=== PATIENT | female | born 1955 | race Caucasian/White ===

== ENCOUNTER 2018-07-29 19:33 | Observation (INO) | payer OTHER ==
[~2018-07-29] VITALS: Ht 142.2 cm; Wt 65.0 kg
--- OUTSIDE RECORDS SUMMARY | ~2018-07-29 | XMS | Encounter Summary ---
Demographics + + + | Address | [address] | | | [place] [address] | + + + | Home Phone | | + + + | Preferred Language | Unknown | + + + | Marital Status | Single | + + + | Jew Affiliation | PRO | + + + | Race | White | + + + | Ethnic Group | Not or | + + + Author + + + | Author | [facility] | + + + | Organization | [facility] | + + + | Address | Unknown | + + + | Phone | Unavailable | + + + Support + + +---------+ + | Name | Relationship | Address | Phone | + + +---------+ + | Isidra Wilson | ECON | Unknown | | + + +---------+ + Care Team Providers + +------+ + | Care Sterile Instrument Technician Name | Role | Phone | + +------+ + | No Pcp Per Patient | PCP | Unavailable | + +------+ + Reason for Visit + + + | Reason | Comments | + + + | Anticoagulant | | | monitoring | | + + + Encounter Details +--------+---------+ + + + | Date | Type | Department | Care Team | Description | +--------+---------+ + + + | 12/12/ | Office | AntiCoagulation at | Amber Segovia, | Embolism (HCC); | | 2008 | Visit | [facility] [address] | [facility] [address] | Encounter for | | | | [facility] [address] [address] | [facility] [address] | Long-Term (Current) | | | | Physicians [facility] | [place], [place] | Use of | | | | [address] | [address] | Anticoagulants | | | | Phys[facility] | [phone] | | | | | [place], [place] | | | | | | [address] | | | | | | [phone] | | | +--------+---------+ + + + Social History + +-------+ +--------+------+ | Tobacco Use | Types | Packs/Day | Years | Date | | | | | Used | | + +-------+ +--------+------+ | Never Assessed | | | | | + +-------+ +--------+------+ + + + | Sex Assigned at | Date Recorded | | | | + + + | Not on file | | + + + + + + + | Job Start Date | Occupation | Industry | + + + + | Not on file | Not on file | Not on file | + + + + + + + + | Travel History | Travel Start | Travel End | + + + + + + | No recent travel history available. | + + documented as of this encounter Last Filed Vital Signs + +---------+ + + | Vital Sign | Reading | Time Taken | Comments | + +---------+ + + | Blood Pressure | 120/60 | 12/12/2008 1:48 PM | | | | | PDT | | + +---------+ + + | Pulse | - | - | | + +---------+ + + | Temperature | - | - | | + +---------+ + + | Respiratory Rate | - | - | | + +---------+ + + | Oxygen Saturation | - | - | | + +---------+ + + | Inhaled Oxygen | - | - | | | Concentration | | | | + +---------+ + + | Weight | - | - | | + +---------+ + + | Height | - | - | | + +---------+ + + | Body Mass Index | - | - | | + +---------+ + + documented in this encounter Progress Notes Amber Segovia, [employer] - 12/12/2008 2:42 PM PDTCC: Established patient Kelly FongPatrick miller 53 y.o. was seen and evaluated by myself today in the Anticoagulation Clinic for an ticoagulation management. 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 Without recent changes. Denies bleeding, change in diet, medication, activity or new illnes s. ANTICOAG FOCUSED ASSESSMENT See doc flowsheet. PROBLEM FOCUSED EXAM: General: oriented, comfortable Eyes: conjunctiva clear Extremities: no edema, pain, discoloration, capillary refill normal Neuro: grossly intact Skin: no bleeding, ecchymosis or petechiae, left dressing intact to forearm Psychiatric: displays normal mood, affect and judgement Labs Reviewed: INR, Plt, HG and HCT Other Diagnostic Tests Reviewed: No other diagnostic tests reviewed at this visit. PATIENT COUNSELING AND EDUCATION REGARDING: Importance of notifying clinic of health status change(s) Reporting medication changes Reporting signs of bleeding Contacting Antico staff ASSESSMENT AND PLAN: Anticoagulation Therapy:Therapeutic at 2.6 (last days warfarin in mg 10, 7.5, 5, 2.5, 7.5, 7.5 ). Will Take 5 mg today, 7.5 mg tomorrow, then be checked on Wednesday. Looks like her fox oconnor dose is 7.5 mg every day except 5 mg on Wed and Sat while she is here in [place] but th is may change when she returns home. Will be heading home and follow up with Dr Thong carlton Wednesday12.13.08 at [address] [facility] ([phone]). documented in this en counter Plan of Treatment Not on filedocumented as of this encounter Procedures + +--------+ + + + | Procedure Name | Priori | Date/Time | Associated Diagnosis | Comments | | | ty | | | | + +--------+ + + + | INR (PT), POC | Routin | 12/12/2008 | Embolism (HCC) | Results for this | | | e | | Encounter for | procedure are in the | | | | | Long-Term (Current) | results section. | | | | | Use of | | | | | | Anticoagulants | | + +--------+ + + + documented in this encounter Results INR (PT), POC (12/12/2008) + +---------+ + + + | Component | Value | Ref Range | Performed | Pathologist | | | | | At | Signature | + +---------+ + + + | [facility] | 2.6 (A) | 0.9 - 1.2 | [facility] | | | TIME | | | OF CARE | | | (INR), POC | | | TESTS | | + +---------+ + + + + + | Specimen | + + | Blood | + + + + + + + | Performing | Address | City/State/Zipcode | Phone Number | | Organization | | | | + + + + + | [facility] | [address] | [place], [place] | | | [facility] | [address] | [address] | | | TESTS | | | | + + + + + | [facility] | [address] | [place], [place] | | | TESTS | [address] | [address] | | + + + + + documented in this encounter Visit Diagnoses + + | Diagnosis | + + | Embolism (HCC) Embolism and thrombosis of unspecified artery | + + | [facility] (current) use of anticoagulants Long-term (current) use of anticoagulants | + + documented in this encounter"
--- OUTSIDE RECORDS SUMMARY | ~2018-07-29 | XMS | Clinical Summary ---
Demographics + + + | Address | [address] | | | [place] [address] | + + + | Home Phone | | + + + | Preferred Language | Unknown | + + + | Marital Status | Single | + + + | Taoism Affiliation | PRO | + + + | Race | White | + + + | Ethnic Group | Not or | + + + Author + + + | Author | [facility] | + + + | Organization | [facility] | + + + | Address | Unknown | + + + | Phone | Unavailable | + + + Support + + +---------+ + | Name | Relationship | Address | Phone | + + +---------+ + | Isidra Wilson | ECON | Unknown | | + + +---------+ + Care Team Providers + +------+ + | Care Telecommunications Professional Name | Role | Phone | + +------+ + | Jim Bergman MD | PP | | + +------+ + Source Comments MELANIE is fully live on both [facility] and [facility] In[facility] Allergies No Known Allergies Medications + + + +---------+------+------+-------+ | Medication | Sig | Dispensed | Refills | Star | End | Statu | | | | | | t | Date | s | | | | | | Date | | | + + + +---------+------+------+-------+ | acetaminophen 650 | Take 650 mg by mouth | 100 | 0 | 09/1 | | Activ | | mg Oral Tablet | every four hours as | | | 4/20 | | e | | | needed. | | | 09 | | | + + + +---------+------+------+-------+ | lisinopril 20 mg | Take 1 Tab by mouth | | 0 | 05/0 | | Activ | | Oral Tablet | once daily. | | | 20 | | e | | | | | | 10 | | | + + + +---------+------+------+-------+ | metformin 850 mg | Take 1 Tab by mouth | | 0 | 05/0 | | Activ | | Oral Tablet | three times daily. | | | 09/17 | | e | | | | | | 10 | | | + + + +---------+------+------+-------+ | lovastatin 20 mg | Take 1 Tab by mouth | | 0 | 05/0 | | Activ | | Oral Tablet | once daily in the | | | 7 | | e | | | evening. Administer | | | 10 | | | | | with evening meal. | | | | | | + + + +---------+------+------+-------+ | glyBURIDE 5 mg | Take 1 Tab by mouth | | 0 | 05/0 | | Activ | | Oral Tablet | two times daily. 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 | + + Last Filed Vital Signs + + + + + | Vital Sign | Reading | Time Taken | Comments | + + + + + | Blood Pressure | 134/86 | 07/05/2009 3:40 PM | | | | | PDT | | + + + + + | Pulse | 93 | 07/05/2009 3:40 PM | | | | | PDT | | + + + + + | Temperature | 36.8 C (98.2 F) | 07/05/2009 3:40 PM | | | | | PDT | | + + + + + | Respiratory Rate | 16 | 12/04/2008 7:52 AM | | | | | PDT | | + + + + + | Oxygen Saturation | 99% | 07/05/2009 3:40 PM | | | | | PDT | | + + + + + | Inhaled Oxygen | - | - | | | Concentration | | | | + + + + + | Weight | 73.5 kg (162 lb 1.6 | 07/05/2009 3:40 PM | | | | oz) | PDT | | + + + + + | Height | 143.5 cm (4' 8.5") | 07/05/2009 3:40 PM | | | | | PDT | | + + + + + | Body Mass Index | 35.7 | 07/05/2009 3:40 PM | | | | | PDT | | + + + + + Plan of Treatment + + + + + | Health Maintenance | Due Date | Last Done | Comments | + + + + + | Mammogram | | | | | | 4 | | | + + + + + | Influenza (Flu) | | | | | vaccination (Season | 9 | | | | Ended) | | | | + + + + + Results Not on filefrom Last 3 Months Advance Directives + + + + + | Type | Date Recorded | Patient | Explanation | | | | Nonprofit Director | | + + + + + | Advance | | | | | Directives and | | | | | Living Will | | | | + + + + + | Power of | | | | | Illusionist | | | | + + + + + + + + + + | Code Status | Date | Date | Comments | | | Activated | Inactivated | | + + + + + | Full Code | 11/06/2008 | 12/04/2008 | | | | 8:22 PM | 8:44 PM | | + + + + +
--- OUTSIDE RECORDS SUMMARY | ~2018-07-29 | XMS | Encounter Summary ---
Demographics + + + | Address | [address] | | | [place] [address] | + + + | Home Phone | | + + + | Preferred Language | Unknown | + + + | Marital Status | Single | + + + | Orthodox Affiliation | PRO | + + + | Race | White | + + + | Ethnic Group | Not or | + + + Author + + + | Author | [facility] | + + + | Organization | [facility] | + + + | Address | Unknown | + + + | Phone | Unavailable | + + + Support + + +---------+ + | Name | Relationship | Address | Phone | + + +---------+ + | Isidra Wilson | ECON | Unknown | | + + +---------+ + Care Team Providers + +------+ + | Care Psychological Operations Officer Name | Role | Phone | + +------+ + | No Pcp Per Patient | PCP | Unavailable | + +------+ + Reason for Referral Consultation (Routine) +--------+--------+ + + + + | Status | Reason | Specialty | Diagnoses / | Referred By | Referred To | | | | | Procedures | Contact | Contact | +--------+--------+ + + + + | Closed | | Occupational | Diagnoses | Sothern, | [facility] | | | | Therapy | Traumatic | [facility] Arce | h [address] | | | | | amputation | [address] | [address] | | | | | of other | Ave | Mailcode: | | | | | finger(s) | [place], [place] | [address] | | | | | (complete) | [address] | for Health | | | | | (partial), | Phone: | and Healing, | | | | | complicated | [phone] | [address]st Floor | | | | | Procedures | Fax: | [place], [place] | | | | | OCC HAND | [phone] | [address] | | | | | THERAPY | | Phone: | | | | | REFERRAL IN | | [phone] | | | | | [facility] | | Fax: | | | | | [facility] | | [phone] | | | | | visits | | | +--------+--------+ + + + + Encounter Details +--------+---------+ + + + | Date | Type | Department | Care Team | Description | +--------+---------+ + + + | 12/13/ | Office | Orthopaedics at | Yazmin Queen PA | Amputation | | 2008 | Visit | [facility] [address] | [address] | Finger-Complicated | | | | Ave Mailcode: [id number] | [place], [place] | (Primary Dx) | | | | [place] [facility] | [address] | | | | | and , | [phone] | | | | | Floor [place], [place] | | | | | | [address] | | | | | | [phone] | | | +--------+---------+ + + + [...] + + documented as of this encounter Progress Notes Yazmin Queen PA - 12/13/2008 4:44 PM PDTWanda Elsi Mcbride is a 53 y.o. female Status post the left hand amputation on fingers index, long, ring and pinky She is also followed by Dr. Daniels and saw him earlier and is scheduled to come back for ev al and suture removal with that provider Patient denies fevers or chills Fingers look pink and healthy, sutures intact Pinky has some sloughing tissue distally, thumb has some dry area gangrenous tissue Discussed case with dr. lafleur Recommends continued follow up with Dr. Santos office and follow with ortho as needed Patient brought up that she has recent diagnosis of diabetes but has not obtained follow up . She is checking her sugars daily. Recommended that she pursue follow up for her diabetes c loser to home in [place]. She was advised to call our office if she needs assistance with th is. 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
--- OUTSIDE RECORDS SUMMARY | ~2018-07-29 | XMS | Encounter Summary ---
Demographics + + + | Address | [address] | | | [place] [address] | + + + | Home Phone | | + + + | Preferred Language | Unknown | + + + | Marital Status | Single | + + + | Jainism Affiliation | PRO | + + + | Race | White | + + + | Ethnic Group | Not or | + + + Author + + + | Author | [facility] | + + + | Organization | [facility] | + + + | Address | Unknown | + + + | Phone | Unavailable | + + + Support + + +---------+ + | Name | Relationship | Address | Phone | + + +---------+ + | Isidra Wilson | ECON | Unknown | | + + +---------+ + Care Team Providers + +------+ + | Care Circuit Judge Name | Role | Phone | + +------+ + | No Pcp Per Patient | PCP | Unavailable | + +------+ + Reason for Visit + + + | Reason | Comments | + + + | Range of motion | | + + + | Pain | | + + + | Edema | | + + + Consultation (Routine) +--------+--------+ + + + + | Status | Reason | Specialty | Diagnoses / | Referred By | Referred To | | | | | Procedures | Contact | Contact | +--------+--------+ + + + + | Closed | | Occupational | Diagnoses | Sothern, | [facility] | | | | Therapy | Traumatic | JOSS Arce | [facility] [address] | | | | | amputation | [address] | [address] | | | | | of other | Ave | Mailcode: | | | | | finger(s) | [place], [place] | [facility] | | | | | (complete) | [address] | for Health | | | | | (partial), | Phone: | and Healing, | | | | | complicated | [phone] | 1st Floor | | | | | Procedures | Fax: | [place], [place] | | | | | OCC HAND | [phone] | [address] | | | | | THERAPY | | Phone: | | | | | REFERRAL IN | | [phone] | | | | | [facility] | | Fax: | | | | | [employer] [facility] | | [phone] | | | | | visits | | | +--------+--------+ + + + + Encounter Details +--------+---------+ + + + | Date | Type | Department | Care Team | Description | +--------+---------+ + + + | 12/13/ | Office | [facility] | [place], | Amputation | | 2008 | Visit | Occupational Therapy | Andrew, OT [address] | Finger-Complicated | | | | Services at [facility] | [address] | (Primary Dx) | | | | [place] [address] | [place] [address] | | | | | [address] Mailcode: | [phone] | | | | | [facility] | | | | | | [facility] and Healing, | | | | | | 1st Floor [place], | | | | | | [place] [address] | | | | | | [phone] | | | +--------+---------+ + + + [...] documented as of this encounter Progress Notes Andrew Wan OT - 12/13/2008 11:19 AM PDT [id number] ZAHIDA MCBRIDE Date of : 1955 Start of care: 12/13/2008 Date of onset: 11/26/2008 (most recent surgery) Referring/Attending Practitioner: Yazmin Queen Primary/Referral Diagnosis/ICD-9: Encounter Diagnoses Code Name Primary? Qualifier 886.1 Amputation Finger-Complicated Yes Plan: [place] OCCUPATIONAL THERAPY EVALUATION Insurance: Payor: No coverage found. Service period from: 12/13/2008 to: 01/12/2009 Number visits used/authorized: 1 used -- applying for financial assistance [facility] OCCUPATIONAL THERAPY INITIAL EVALUATION HAND INITIAL EVALUATION Name: Zahida Mcbride MR# [id number] SUBJECTIVE: History of Presenting Problem: Zahida Mcbride is a 53 y.o. Female who presented to the ED with acute L hand ischemia on 10/28/08 after a horse bite to the left forearm. "S he did not seek immediate medical attention and presented to the Vascular Surgery Service wi th decreased vascular blood supply to her distal fingers with a bluish hue. It was felt that she was keysha wing emboli distally, and therefore, was necrosing off her distal fingers, and correct actio n was taken by Vascular Surgery Service." Pt underwent multiple surgeries to save her left a rm. Surgical Procedures/Dates: 11/07/08: Postoperative Diagnosis(es): Severely ischemic left hand. Procedures Performed: Embolectomy of left brachial, radial, and ulnar arteries via an arm incision. 11/08/08: Postoperative Diagnosis(es): Ischemia of the deep muscle compartment of the left hand and the flexor compartment of the left forearm. Procedures Performed: 1. Left upper extremity angiography. 2. Thromboembolectomy of the left brachial, radial and ulnar arteries at the brachial bifurcation. 3. Thromboembolectomy of the left ulnar artery at the wrist with thromboembolectomy of the palmar arch. 4. Patch angioplasty of the left ulnar artery at the wrist. 5. Thrombolysis of the left palmar arch with 8 mg of tPA. 6. Fasciotomy of the extensor and flexor compartments of the forearm. 7. Fasciotomy of the left hand per Orthopedic Surgery. 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 Procedures Performed: Left hand two-incision fasciotomy. 11/21/08: Postoperative Diagnosis(es): 1. Arterial embolus, left forearm. 2. Gangrene, left index, middle, ring, and small fingers. Procedures Performed: 1. Irrigation and debridement of left hand including skin, subcutaneous tissue, muscle, tendon, and bone. 2. Middle phalangeal level amputations of left index, middle, ring, and small fingers. 11/22/08: Postoperative Diagnosis(es): Left hand necrotic fingers of the index, middle, ring, and small. Indications: Procedures Performed: Incision and debridement of her left hand with amputation through the middle phalanx of her index, middle, ring, and small finger, ( ) as well as loose closure of her palmar fasciotomies. Precautions: Wounds Occupation: unknown Prior/concurrent treatment: none Med History: Zahida has a past medical history of Diabetes Mellitus. Medications: Current outpatient prescriptions: acetaminophen 650 mg Oral Tablet, Take 650 mg by mouth ev yeni four hours as needed., Disp: 100, Rfl: 0 Bismuth Tribrom-Petrolatum,Wh (XEROFORM PETROLATUM DRESSING) 5 X 9 " Topical Bandage, by To pical route. xxx, Disp: 60, Rfl: 1 Disposable Gloves Misc, Nonsterile, large, per box, Disp: 4, Rfl: 1 Gauze Bandage (CURITY GAUZE) 2 X 2 " Topical Bandage, by Topical route. As instructed, Disp : 60, Rfl: 1 Gauze Bandage (CURITY GAUZE) 4 X 4 " Topical Bandage, by Topical route. As instructed, Disp : 60, Rfl: 1 Gauze Bandage (CURITY KERLIX BANDAGE ROLL) 2 1/4 X 3 "-yard Topical Bandage, by Topical rou te. xxx, Disp: 60, Rfl: 1 glucose chewable 5 gram Oral Tablet, Chewable, Take 3 Tabs by mouth every fifteen minutes a s needed for hypoglycemia. Repeat in 10 minutes if necessary. Response should occur in 10 mi nutes., Disp: 25, Rfl: 0 insulin NPH 100 unit/mL Subcutaneous Suspension, Inject 26 Units under the skin (SUBC) two times daily before meals., Disp: 1, Rfl: 1 insulin regular 100 unit/mL Injection Solution, Inject 1-16 Units under the skin (SUBC) thr ee times daily before meals. See attached sliding scale. Start using only after your Aspart insulin has run out., Disp: 1, Rfl: 1 insulin regular 100 unit/mL Injection Solution, Inject 8 Units under the skin (SUBC) three times daily before meals. Start using only after your Aspart insulin runs out., Disp: 1, Rfl : 1 warfarin 5 mg Oral Tablet, Take by mouth. Take as directed up to 2 pills daily, Disp: 100, Rfl: 3 warfarin 5 mg Oral Tablet, Take 1 Tab by mouth once daily in the evening., Disp: 30, Rfl: 0 Pain level (0-10): Pain at rest is 5-6. Pain with activity is no higher than a 5/10. Takes 2 Tyelenol for pain, can't afford pain medication. Patient's Goals: move fingers, decrease pain OBJECTIVE: Hand Dominance: right-handed Involved Side: left EDEMA: swelling in digits, swelling in dorsum hand. WOUND: Sutures intact at fingertips. RANGE OF MOTION: Not formally evaluated 2* to lack of time. Will test at a later date. Decreased active an d passive MCP flexion all digits, decreased AROM/PROM of thumb. STRENGTH: NT 2* to precautions. Will test at a later date. SENSIBILITY: Not formally evaluated 2* to lack of time. Will test at a later date. SPECIAL TESTS: NA TREATMENT TODAY: Pt instructed in home program and given name of therapist in [place], which is closer to her home. Pt encouraged to f/u with therapist in [facility] next week a nd f/u with this therapist when she returns for suture removal in 3 weeks. Home program to be done every 2 hours: Intervention Date* Comments Passive MCP flexion 12/13/2008 10 reps Passive thumb flexion with place/hold 12/13/2008 10 reps Intrinsic plus position 12/13/2008 10 reps Compression sleeve for edema 12/13/2008 10 reps Wrist extension/flexion 12/13/2008 10 reps * indicates date intervention started. see comments for details of compliance, modification s, deletions Treatment diagnosis: Encounter Diagnoses Code Name Primary? Qualifier 886.1 Amputation Finger-Complicated Yes Plan: AR OCCUPATIONAL THERAPY EVALUATION ASSESSMENT: Zahida requires services that can be safely and effectively performed only by a qualified erapist to address the following problems and achieve the following goals: she will benefit from hand therapy to address limitations in upper extremity function cause d by: Decreased ROM, Decreased strength, Pain, Edema, Scar adhesions and Decreased sensation SHORT-TERM GOALS: discussed with Zahida due in 4 weeks: Performs scar management techniques independently., Performs edema management techniques i ndependently., Performs home exercise program independently., Verbilizes precautions indepen dently. and Reports decreased pain using visual analog scale. LONG-TERM GOALS: discussed with Zahida, due in 12 weeks: Pt will use left hand as gross assist for functional activities Reports pain less than 3/10 with functional use. PLAN OF CARE: f/u with Briana in 3 weeks. Begin scar massage, desensitization, and more aggre ssive ROM. Treatment to include the following: Splinting to increase joint motion, Education for diagnosis specific ADL involvement, adapt marito equipment and techniques, Therapeutic exercise to increase ROM, strength, and functional use of UE, Education regarding precautions and therapy program, Techniques to control and e faustino and scar adhesions, Techniques to manage pain, Physical agent modalities that may inclu de: Fluidotherapy, paraffin, ultrasound and cold/hot pact to enchance tissue healing and pr epar for ADL and Manual techniques that may include: joint mobilization, lymphatic mobiliza tion and scar mobilization to enhance tissue healing, relieve pain and improve ADL performan ce Frequency/Duration: 4 visits over 12 weeks. Treatment began: 1035 Treatment ended: 1100 This note is to serve as the discharge summary if Zahida fails to attend further Occupationa l Therapy appointments or contact the therapist regarding any change in their status. 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
--- OUTSIDE RECORDS SUMMARY | ~2018-07-29 | XMS | Encounter Summary ---
Demographics + + + | Address | [address] | | | [place] [address] | + + + | Home Phone | | + + + | Preferred Language | Unknown | + + + | Marital Status | Single | + + + | Mu-Ism Affiliation | PRO | + + + | Race | White | + + + | Ethnic Group | Not or | + + + Author + + + | Author | [facility] | + + + | Organization | [facility] | + + + | Address | Unknown | + + + | Phone | Unavailable | + + + Support + + +---------+ + | Name | Relationship | Address | Phone | + + +---------+ + | Isidra Wilson | ECON | Unknown | | + + +---------+ + Care Team Providers + +------+ + | Care Field Aide Name | Role | Phone | + +------+ + | Jim Begrman MD | PCP | | + +------+ + Reason for Visit +--------+ + | Reason | Comments | +--------+ + | Other | Certified letter | +--------+ + Encounter Details +--------+ + + + + | Date | Type | Department | Care Team | Description | +--------+ + + + + | 02/07/ | Documentati | [facility] | Lauren Haley | Gian (Certified | | 2008 | on | [facility] at [facility] Moshe Boogie MD | letter) | | | | [place] [address] | | | | | | [address] | | | | | | [address] | | | | | | [place], | | | | | | [place] [address] | | | | | | [phone] | | | +--------+ + + + + Social History + +-------+ [...] + + documented as of this encounter Plan of Treatment Not on filedocumented as of this encounter Visit Diagnoses Not on filedocumented in this encounter"
--- OUTSIDE RECORDS SUMMARY | ~2018-07-29 | XMS | Encounter Summary ---
Demographics + + + | Address | [address] | | | [place] [address] | + + + | Home Phone | | + + + | Preferred Language | Unknown | + + + | Marital Status | Single | + + + | Christian Affiliation | PRO | + + + | Race | White | + + + | Ethnic Group | Not or | + + + Author + + + | Author | [facility] | + + + | Organization | [facility] | + + + | Address | Unknown | + + + | Phone | Unavailable | + + + Support + + +---------+ + | Name | Relationship | Address | Phone | + + +---------+ + | Isidra Wilson | ECON | Unknown | | + + +---------+ + Care Team Providers + +------+ + | Care Strategic Consultant Name | Role | Phone | + [...] Description | +--------+---------+ + + + | 12/06/ | Office | AntiCoagulation at | Amber Segovia, | Embolism (HCC); | | 2008 | Visit | [facility] [address] | MEDIATOR [address] | Encounter for | | | | [address] | [address] | Long-Term (Current) | | | | Physicians [place] | [place], [place] | Use of | | | | [address] | [address] | Anticoagulants | | | | Physicians [facility] | [phone] | | | | | [place], [place] | | | | | | [address] | | | | | | [phone] | | | +--------+---------+ + + + [...] this encounter Last Filed Vital Signs + + + + + | Vital Sign | Reading | Time Taken | Comments | + + + + + | Blood Pressure | 160/80 | 12/06/2008 1:30 PM | | | | | PDT | | + + + + + | Pulse | - | - | | + + + + + | Temperature | - | - | | + + + + + | Respiratory Rate | - | - | | + + + + + | Oxygen Saturation | - | - | | + + + + + | Inhaled Oxygen | - | - | | | Concentration | | | | + + + + + | Weight | 69.4 kg (153 lb) | 12/06/2008 1:30 PM | | | | | PDT | | + + + + + | Height | - | - | | + + + + + | Body Mass Index | 33.7 | 11/27/2008 12:00 PM | | | | | PDT | | + + + + + documented in this encounter Progress Notes Amber Segovia, GILDA - 12/06/2008 2:24 PM PDTFormatting of this note might be different fro m the original. CC: New patient Kelly FongKevin 53 y.o. female was seen and evaluated by myself alexus wright in the Anticoagulation Clinic for anticoagulation management. Here with son Luke borden l darvin with her. HISTORY OF PRESENT ILLNESS (see doc flowsheet): Complex patient with Left Upper Extremety emboli on warfarin since 11.29.08 and with other i nfluencing problems: Diabetes, HTN, vaginal candidiasis, vaginal bleeding, uterine fibroid, dysvascular hand sta tus post revascularization with left hand compartment syndrome, submucous uterine leiomyoma with prolapse. States has not been able to pay for any of her medications (has $2.98 at this time). Is in the process of "filling out papers". ROS: General: No constitutional symptoms of fever, fatigue, chills, weight loss Thrombosis: no clots in veins or lungs, no stroke or "mini stroke" TIAs, no allergic respon se to heparin Eyes: No changes in vision, no sclera bleeding Ears, Nose, and Throat: no hearing loss, ear discharge, nose bleeds, or gingival bleeding Respiratory: No shortness of breath, coughing up blood, or chest discomfort Musculoskeletal: No joint pain, swelling, arthritis, or loss of strength Cardio: No chest pain, fainting, palpitations, high blood pressure or heart trouble Vascular: left forearm dressing intact, arm elevated for comfort as has not been able to pa y for pain medications Gastrointestinal:No loss of appetite, nausea, vomiting, diarrhea, indigestion, liver troubl e, bloody stools or dark tarry stools Genitourinary: No hematuria, postmenopausal Skin: No bruising except at IV and inj sites Neuro: No headache, numbness, tingling, weakness, dizziness Psych: No abnormal anxiety, depression, thoughts of suicide or hallucinations Medication Taking Behavior: Additional/missed doses of other medication: No Pillbox: No Medic alert: No Family support: Yes Social/Lifestyle History: History Social History Marital Status: Single Spouse Name: N/A Number of Children: N/A Years of Education: N/A Occupational History Not on file. Social History Main Topics Tobacco Use: Never Alcohol Use: No Drug Use: No Sexually Active: Yes -- Male partner(s) Other Topics Concern Not on file Social History Narrative No narrative on file Vit K in diet: variable and low Activity: stable and low Contact sports: No Seatbelt: Yes PROBLEM FOCUSED EXAM: General: Kelly Mcbride is well nourished, appropriate in appearance and comfort able blood pressure BP 160/80 | Wt 69.4 kg (153 lb) Eyes: Pupils equally reactive, extra ocular movement intact, sclera clear Ear/Nose/Mouth/Throat: No bleeding, ecchymosis, or petechia, teeth in good repair Respiratory: No chest pain with deep inspiration, equal excursion bilaterally, normal effor t Cardiac: Regular rate and rhythm Extremeties: No edema, pain, discoloration, capillary refill normal Musculosketal: Normal gait and station Skin: No bleeding, ecchymosis or petechiae Neuro: Alert and oriented times 3, grossly intact with steady gait Psych: Displays normal mood, affect, insight and judgement Labs Reviewed: INR, CBC, platelets Other Diagnostic Tests Reviewed: Vascular imaging, cardiac diagnostic tests PATIENT COUNSELING AND EDUCATION: The following pertains to patient and son Baseline understanding: Accurately explains reasons for visit and relevent medical history. Accurately describes the alteration in self-care routines/abilities resulting from treatmen t. Provides name, dosage and reason for taking anticoagulation medication. Verbalizes will be able to follow proposed treatment plan for medication, blood testing, di et and activity. Learning needs: None Identified out of the following: disease/symptoms, medication administration, pain man agement, diet, drug-food interations, diagnositc tests, safety and infection control. Barriers to Learning: None identified out of the following: cognitive, physical, pain/comfort level, hearing/visi ual/speech limitation, cultural, emotional/fear, psychosocial, lack of desire/motivation, re ading inability, financial, anabaptism and language. Referral to: None required out of the following: automotive parts interpreter services, home care, PT/Rehab, care managem ent/secondary social studies teacher, community resources, pumping supervisor, pain management, primary care physician . Preferred learning method: verbal followed by written material. Content covered: Function of Anticoag Clinic, Purpose of anticoagulation medicaitons, Importance of taking p rescribed dosage, Importance of regular blood testing, Reporting of medication changes, Repo rting of change in tablet color, Factors influencing anticaogulation (diet, ETOH, activity, health, OTCs, herbal remedies), Notification fo all providers/dentists, Medicaitons to avoid (ASA, NSAIDs, OTCs, herbal remedies, acetaminophen precautions), Reporting signs of bleedin g, Contacting Anticoag Clinic staff, risks and contrception needs. Educational materials given: Warfarin basics. Has rudimentary understanding. Verbalizes understanding of information/instructions given. ASSESSMENT AND PLAN: Anticoagulation Therapy: Subtherapeutic - needs dose adjustment:10 mg times one, 7.5 mg mildred es one, 5 mg times on, 2.5 mg times one. Weekly warfarin dose as ordered. See ACC FLOWSHEET for current warfarin dosage. Needs further anticoag follow up: Next visit with lab test: 4 days. Will borrow $4 for warfarin 5 mg #100 and start taking today. documented in this encounter Plan of Treatment Not on filedocumented as of this encounter Procedures + +--------+ + + + | Procedure Name | Priori | Date/Time | Associated Diagnosis | Comments | | | ty | | | | + +--------+ + + + | INR (PT), POC | Routin | 12/06/2008 | Embolism (HCC) | Results for this | | | e | | Encounter for | procedure are in the | | | | | Long-Term (Current) | results section. | | | | | Use of | | | | | | Anticoagulants | | + +--------+ + + + documented in this encounter Results INR (PT), POC (12/06/2008) + +-------+ + + + | Component | Value | Ref Range | Performed | Pathologist | | | | | At | Signature | + +-------+ + + + | [facility] | 1.2 | 0.9 - 1.2 | [facility] | | | TIME | | | OF CARE | | | (INR), POC | | | TESTS | | + +-------+ + + + + + | Specimen | + + | Blood | + + + + + + + | Performing | Address | City/State/Zipcode | Phone Number | | Organization | | | | + + + + + | [facility] | [address] | [place], [place] | | | [facility] | [address] | [address] | | | TESTS | | | | + + + + + | [facility] | 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
--- OUTSIDE RECORDS SUMMARY | ~2018-07-29 | XMS | Encounter Summary ---
Demographics + + + | Address | [address] | | | [place] [address] | + + + | Home Phone | | + + + | Preferred Language | Unknown | + + + | Marital Status | Single | + + + | Lutheran Affiliation | PRO | + + + [...] Team Providers + +------+ + | Care Public Works Technician Name | Role | Phone | + +------+ + | Pending Pcp Addition | PCP | Unavailable | + +------+ + Reason for Referral Diagnostic Testing (Routine) +--------+--------+ + + + + | Status | Reason | Specialty | Diagnoses / | Referred By | Referred To | | | | | Procedures | Contact | Contact | +--------+--------+ + + + + | Closed | | | Procedures | Niño, | Xxrad Vasc | | | | | VASC LAB | Sam Sumner | Lab Ppv [address] | | | | | ARTER SERGEY | MD Beltrán | [address] | | | | | [facility] | [facility] & | Cal[place]ino | | | | | [facility] | [address] | Road | | | | | | [place] | Mailcode: | | | | | | [address] | [id number] | | | | | | Calos Paulino | Physicians | | | | | | [address] | Pavilion | | | | | | [place], [place] | [place], [place] | | | | | | [address] | [address] | | | | | | | Phone: | | | | | | | [phone] | | | | | | | Fax: | | | | | | | [phone] | +--------+--------+ + + + + Diagnostic Testing (Routine) +--------+--------+ + + + + | Status | Reason | Specialty | Diagnoses / | Referred By | Referred To | | | | | Procedures | Contact | Contact | +--------+--------+ + + + + | Closed | | Cardiology | Procedures | Niño, | Car Echo | | | | | | Sam Sumner, | [facility] [address] | | | | | TRANSTHORACI | MD Beltrán | [address] | | | | | C | Health & | [facility] | | | | | ECHOCARDIOGR | Science | Mailcode: | | | | | AM, ADULT | [place] | [id number] | | | | | | [address] | Calos Begum | | | | | | Calos Paulino | Building | | | | | | Rd | [place], [place] | | | | | | [place], [place] | [address] | | | | | | [address] | Phone: | | | | | | | [phone] | +--------+--------+ + + + + Diagnostic Testing (Routine) +--------+--------+ + + + + | Status | Reason | Specialty | Diagnoses / | Referred By | Referred To | | | | | Procedures | Contact | Contact | +--------+--------+ + + + + | Closed | | Cardiology | Procedures | Niño, | Car Echo | | | | | | Sam Sumner, | [facility] [address] | | | | | TRANSTHORACI | MD [place] | [address] | | | | | C | Health & | [facility] | | | | | ECHOCARDIOGR | Science | Mailcode: | | | | | AM, ADULT | [place] | [id number] [facility] | | | | | | [address] [facility] [address] | [facility] | | | | | | [facility] | Building | | | | | | Rd | [place], [place] | | | | | | [place], [place] | [address] | | | | | | [address] | Phone: | | | | | | | [phone] | +--------+--------+ + + + + Reason for Visit AUTH/CERT +--------+--------+ + + + + | Status | Reason | Specialty | Diagnoses / | Referred By | Referred To | | | | | Procedures | Contact | Contact | +--------+--------+ + + + + | Closed | | | | | [facility] [address] | | | | | | | Proceduralcar | | | | | | | e [address] | | | | | | | [address] | | | | | | | [address] | | | | | | | PRSU | | | | | | | [facility] | | | | | | | [place], [place] | | | | | | | [address] Phone: | | | | | | | [phone] | | | | | | | Fax: | | | | | | | [phone] | +--------+--------+ + + + + Encounter Details +--------+ + + + + | Date | Type | Department | Care Team | Description | +--------+ + + + + | 11/06/ | Hospital | [place] [address] | Roc Rae, | | | 2008 - | Encounter | [place] | MD Prieto Winter | | | | | Road Mailcode: | Ronen BUCKLEY, [place] | | | 12/04/ | | [id number] | [address] | | | 2008 | | [place], | | | | | | [place] [address] | | | | | | [phone] | | | +--------+ + + + [...] + + + | Blood Pressure | 123/77 | 12/04/2008 7:52 AM | | | | | PDT | | + + + + + | Pulse | 81 | 12/04/2008 7:52 AM | | | | | PDT | | + + + + + | Temperature | 36.7 C (98.1 F) | 12/04/2008 7:52 AM | | | | | PDT | | + + + + + | Respiratory Rate | 16 | 12/04/2008 7:52 AM | | | | | PDT | | + + + + + | Oxygen Saturation | 98% | 12/04/2008 7:52 AM | | | | | PDT | | + + + + + | Inhaled Oxygen | - | - | | | Concentration | | | | + + + + + | Weight | 75.7 kg (166 lb 14.2 | 12/02/2008 4:23 AM | | | | oz) | PDT | | + + + + + | Height | 143.5 cm (4' 8.5") | 11/27/2008 12:00 PM | | | | | PDT | | + + + + + | Body Mass Index | 36.76 | 11/27/2008 12:00 PM | | | | | PDT | | + + + + + documented in this encounter Discharge Summaries Koby Molina GNP - 12/04/2008 2:19 PM PDTFormatting of this note might be different fr om the original. 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 Submucous uterine leiomyoma with prolapse. Past Medical/Surgical History tubal ligation transumbilicus 3 C-sections Principal Procedure: 11/07/08 Embolectomy left brachial, radial and ulnar arteries 11/08/08 1. Left upper extremity angiography. 2. Thromboembolectomy of the left brachial, ra dial and ulnar arteries at the brachial bifurcation. 3. Thromboembolectomy of the left ulnar artery at the wrist with thromboembolectomy of the palmar arch. 4. Patch angioplasty of the left ulnar artery at the wrist. 5. Thrombolysis of the left palmar arch with 8 mg of tPA. 6 . Fasciotomy of the extensor and flexor compartments of the forearm. 7. Fasciotomy of the le ft hand per Orthopedic Surgery. 8. Endometrial biopsy 11/12/08 Left hand two-incision fasciotomy. 11/15/08 Embolectomy of left brachial, radial, and ulnar arteries via an arm incision. 11/21/08 Irrigation and debridement left hand with amputation through middle phalanx of inde x, long, ring and small fingers. Loose closure of palmar fasciotomies 11/23/08 Myomectomy, vaginal. 11/27/08 STSG to left arm fasciotomy wound Additional Procedures: Hand consult Orthopedic Consult ICU Hospitalist Gynecology ECHO PT/OT Orthopedic hand consult Patient Advocate Reason for Admission, Significant Findings, Treatment, and Complications Brief Hospital Course: 53 y.o. Female presented with acute occlusion of left ulnar artery s/p crush injury when bi tten by horse on left forearm. She was airlifted to [facility] from [facility] . A duplex from that facility showed no flow in the left ulnar artery but flow in the left radial artery. The patient does not have routine medical care but presented with blood suga rs in the 300-400 range and HTN. Her HgA1C was 14 on admission. 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 She was thrombolized and remained in ICU for observation while on heparin. A hand consul t was obtained which concluded that on admission, sensory and motor deficits not in any spec ific nerve distribution. An Orthopedic consult was also obtained. Symptoms indicate parti al nerve injury "would observe at this point and not indicated for surgical exploration." A hospitalist was consulted to manage her newly diagnosed diabetes with an initial HgA1C of 14. An ECHO was performed to determine any etiology for emobli. No significant abnormaliti es were identified and her LEF was 60-65%. She was treated for vaginal candidiasis as well as uterine bleeding secondary to heparin and large fibroid uterus per Gynecology. Per [facility], "Uterine artery embolization is an option if bleeding remains refractory to hormon al therapy. Possible hysterectomy or myomectomy post discharge." The patient reports she w as bleeding vaginally prior to admission. She proceded to surgery on 11/08 for an embolectom y left brachial, radial and ulnar arteries. There was a Doppler signal over the ulnar arter y just proximal to the wrist at the end of the procedure. There was Doppler signal over the radial artery just proximal to the wrist at the end of the procedure. There was no Doppler s ignal over the level of the ulnar nerve. Because of this lack of signal, she returned to [facility] secondary to pulselessness distally on 11/08 for procedure above with an endometrial b iopsy which showed: Detached fragments of disordered proliferative endometrium with stromal breakdown. Negative for hyperplasia and malignancy. A 8cm prolapsing fibroid was observed. She remained in the ICU for observation and was transferred to [facility] status on 11/10 in stab le condition. An Ortho hand consult was obtained. On 11/12, she underwent left hand fasciot omies and on 11/15, she underwent embolectomy of left brachial, radial, and ulnar arteries. On 11/21, the patient underwent irrigation and debridement left hand with amputation through middle phalanx of index, long, ring and small fingers. Loose closure of palmar fasciotomies . IV Ancef was initiated after this procedure. On 11/23, she underwent vaginal removal of large 10 x 6 cm submucous myoma partially prolapsed through cervix.Cavity otherwise normal, and uterus without other abnormalities. The uterine cavity was packed with gelfoam. On 11/27, she underwent a STSG tomorrow for coverage of forearm wound. The patient will be discharg ed on coumadin. Her INR on day of discharge was 2.03. Hypercoaguable workup: negative for factor V Leiden and prothrombin gene mutation INPATIENT PROVIDER DISCHARGE AND INTERDISCIPLINARY INSTRUCTIONS Discharge Medications START taking these medications acetaminophen 650 mg Oral Tablet Take 650 mg by mouth every four hours as needed. Qty: 100 Refills: 0 Bismuth Tribrom-Petrolatum,Wh (XEROFORM PETROLATUM DRESSING) 5 X 9 " Topical Bandage by Topical route. xxx Qty: 60 Refills: 1 Disposable Gloves Misc Nonsterile, large, per box Qty: 4 Refills: 1 docusate sodium 100 mg Oral Capsule Take 1 Cap by mouth two times daily. Qty: 60 Refills: 0 Gauze Bandage (CURITY GAUZE) 2 X 2 " Topical Bandage by Topical route. As instructed Qty: 60 Refills: 1 Gauze Bandage (CURITY GAUZE) 4 X 4 " Topical Bandage by Topical route. As instructed Qty: 60 Refills: 1 Gauze Bandage (CURITY KERLIX BANDAGE ROLL) 2 1/4 X 3 "-yard Topical Bandage by Topical route. xxx Qty: 60 Refills: 1 glucose chewable 5 gram Oral Tablet, Chewable Take 3 Tabs by mouth every fifteen minutes as needed for hypoglycemia. CBG less than 70 mg /dL Repeat in 10 minutes if necessary. Response should occur in 10 minutes. Qty: 25 Refills: 1 glucose chewable 5 gram Oral Tablet, Chewable Take 3 Tabs by mouth every fifteen minutes as needed for hypoglycemia. Repeat in 10 minute s if necessary. Response should occur in 10 minutes. Qty: 25 Refills: 0 insulin NPH 100 unit/mL Subcutaneous Suspension Inject 26 Units under the skin (SUBC) two times daily before meals. Qty: 1 Refills: 1 insulin regular 100 unit/mL Injection Solution Inject 1-16 Units under the skin (SUBC) three times daily before meals. See attached slidi ng scale. Start using only after your Aspart insulin has run out. Qty: 1 Refills: 1 insulin regular 100 unit/mL Injection Solution Inject 8 Units under the skin (SUBC) three times daily before meals. Start using only afte r your Aspart insulin runs out. Qty: 1 Refills: 1 lisinopril 5 mg Oral Tablet Take 1 Tab by mouth once daily. Qty: 30 Refills: 0 lovastatin 20 mg Oral Tablet Take 1 Tab by mouth once daily in the evening. Administer with evening meal. Qty: 30 Refills: 0 medroxyPROGESTERone 10 mg Oral Tablet Take 2 Tabs by mouth once daily. Qty: 30 Refills: 0 metoprolol 25 mg Oral Tablet Take 1 Tab by mouth two times daily. Qty: 60 Refills: 0 MISCELLANEOUS MEDICAL SUPPLY (RX TAPE PAPER) As instructed Qty: 6 Refills: 1 oxycodone, immediate release, 5 mg Oral Tablet Take 1 Tab by mouth every six hours as needed. Qty: 200 Refills: 0 warfarin 5 mg Oral Tablet Take 1 Tab by mouth once daily in the evening. Qty: 30 Refills: 0 See attached sliding scale Diet: 2gm sodium restriction, diabetic diet Activity: Up as tolerated. Carlito pillow for left hand as needed Special Instructions: None Dressing Changes: May shower, no baths. Do not get left arm or hand wet. Once a day to left arm: 1. Xeroform to incision line and open area 2. Cover with kerlix roll and secure with tape Once a day to open area on right leg 1. Xeroform to open area 2. Cover with gauze and secure with tape Circaids: Yes ( ) No ( x) Call: [phone] If you have any of the following: Difficulty breathing or unusual shortness of breath Excessive bleeding, drainage at the operative site Fevers, chills, increased pain that is not relieved by pain medications Persistent nausea or vomiting Other SPECIFIC concerns, such as: None Follow Up Appointments: PCP: None. List of [facility] clinics provided to patient Other: Vascular Surgery 12/12 at 2:30 pm [phone], Lucio Omer, 3rd floor [facility], Dr Jhon Cabello 12/13 at 1015 , 12 floor o [facility] 12/06 at 1 pm [phone] Call [facility], Dr. Avery Lee, for appointment on to evaluate you for hysterectomy [phone], Women's Health, Patricia Omer Follow Up Tests: (Tests at [facility] must be entered into [facility]) None Condition On Discharge:stable Vital Signs at discharge as appropriate: Wt 69.3 kg (152 lbs 12.5 oz)( < 3 %ile), BP 112/71 , Pulse 85, Temperature 36.3 C (97.3 F), RR 13, SpO2 100%. Discharge Patient To: Home with son for assistance Does patient have a planned readmission: No Discharge Summary completed: yes Discharging Provider: Kaela GREEN Date Completed: 12/04/08 Time Completed: 1100 Discharging Attending:Roc Rae MD CC: PCP: No PCP Referring Physician: GRACIELA MOSELEY MD documented in this e ncounter Discharge Instructions Instructions Koby Molina GNP - 11/08/2008Formatting of this note might be different fr om the original. 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 Submucous uterine leiomyoma with prolapse. Past Medical/Surgical History tubal ligation transumbilicus 3 C-sections Principal Procedure: 11/07/08 Embolectomy left brachial, radial and ulnar arteries 11/08/08 1. Left upper extremity angiography. 2. Thromboembolectomy of the left brachial, ra dial and ulnar arteries at the brachial bifurcation. 3. Thromboembolectomy of the left ulnar artery at the wrist with thromboembolectomy of the palmar arch. 4. Patch angioplasty of the left ulnar artery at the wrist. 5. Thrombolysis of the left palmar arch with 8 mg of tPA. 6 . Fasciotomy of the extensor and flexor compartments of the forearm. 7. Fasciotomy of the le ft hand per Orthopedic Surgery. 8. Endometrial biopsy 11/12/08 Left hand two-incision fasciotomy. 11/15/08 Embolectomy of left brachial, radial, and ulnar arteries via an arm incision. 11/21/08 Irrigation and debridement left hand with amputation through middle phalanx of inde x, long, ring and small fingers. Loose closure of palmar fasciotomies 11/23/08 Myomectomy, vaginal. 11/27/08 STSG to left arm fasciotomy wound Additional Procedures: Hand consult Orthopedic Consult ICU Hospitalist Gynecology ECHO PT/OT Orthopedic hand consult Patient Advocate Reason for Admission, Significant Findings, Treatment, and Complications Brief Hospital Course: 53 y.o. Female presented with acute occlusion of left ulnar artery s/p crush injury when bi tten by horse on left forearm. She was airlifted to [facility] from [facility] . A duplex from that facility showed no flow in the left ulnar artery but flow in the left radial artery. The patient does not have routine medical care but presented with blood suga rs in the 300-400 range and HTN. Her HgA1C was 14 on admission. 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 She was thrombolized and remained in ICU for observation while on heparin. A hand consul t was obtained which concluded that on admission, sensory and motor deficits not in any spec ific nerve distribution. An Orthopedic consult was also obtained. Symptoms indicate parti al nerve injury "would observe at this point and not indicated for surgical exploration." A hospitalist was consulted to manage her newly diagnosed diabetes with an initial HgA1C of 14. An ECHO was performed to determine any etiology for emobli. No significant abnormaliti es were identified and her LEF was 60-65%. She was treated for vaginal candidiasis as well as uterine bleeding secondary to heparin and large fibroid uterus per Gynecology. Per [facility], "Uterine artery embolization is an option if bleeding remains refractory to hormon al therapy. Possible hysterectomy or myomectomy post discharge." The patient reports she w as bleeding vaginally prior to admission. She proceded to surgery on 11/08 for an embolectom y left brachial, radial and ulnar arteries. There was a Doppler signal over the ulnar arter y just proximal to the wrist at the end of the procedure. There was Doppler signal over the radial artery just proximal to the wrist at the end of the procedure. There was no Doppler s ignal over the level of the ulnar nerve. Because of this lack of signal, she returned to [facility] secondary to pulselessness distally on 11/08 for procedure above with an endometrial b iopsy which showed: Detached fragments of disordered proliferative endometrium with stromal breakdown. Negative for hyperplasia and malignancy. A 8cm prolapsing fibroid was observed. She remained in the ICU for observation and was transferred to [facility] status on 11/10 in stab le condition. An Ortho hand consult was obtained. On 11/12, she underwent left hand fasciot omies and on 11/15, she underwent embolectomy of left brachial, radial, and ulnar arteries. On 11/21, the patient underwent irrigation and debridement left hand with amputation through middle phalanx of index, long, ring and small fingers. Loose closure of palmar fasciotomies . IV Ancef was initiated after this procedure. On 11/23, she underwent vaginal removal of large 10 x 6 cm submucous myoma partially prolapsed through cervix.Cavity otherwise normal, and uterus without other abnormalities. The uterine cavity was packed with gelfoam. On 11/27, she underwent a STSG tomorrow for coverage of forearm wound. The patient will be discharg ed on coumadin. Her INR on day of discharge was 2.03. Hypercoaguable workup: negative for factor V Leiden and prothrombin gene mutation INPATIENT PROVIDER DISCHARGE AND INTERDISCIPLINARY INSTRUCTIONS Discharge Medications START taking these medications acetaminophen 650 mg Oral Tablet Take 650 mg by mouth every four hours as needed. Qty: 100 Refills: 0 Bismuth Tribrom-Petrolatum,Wh (XEROFORM PETROLATUM DRESSING) 5 X 9 " Topical Bandage by Topical route. xxx Qty: 60 Refills: 1 Disposable Gloves Misc Nonsterile, large, per box Qty: 4 Refills: 1 docusate sodium 100 mg Oral Capsule Take 1 Cap by mouth two times daily. Qty: 60 Refills: 0 Gauze Bandage (CURITY GAUZE) 2 X 2 " Topical Bandage by Topical route. As instructed Qty: 60 Refills: 1 Gauze Bandage (CURITY GAUZE) 4 X 4 " Topical Bandage by Topical route. As instructed Qty: 60 Refills: 1 Gauze Bandage (CURITY KERLIX BANDAGE ROLL) 2 1/4 X 3 "-yard Topical Bandage by Topical route. xxx Qty: 60 Refills: 1 glucose chewable 5 gram Oral Tablet, Chewable Take 3 Tabs by mouth every fifteen minutes as needed for hypoglycemia. CBG less than 70 mg /dL Repeat in 10 minutes if necessary. Response should occur in 10 minutes. Qty: 25 Refills: 1 glucose chewable 5 gram Oral Tablet, Chewable Take 3 Tabs by mouth every fifteen minutes as needed for hypoglycemia. Repeat in 10 minute s if necessary. Response should occur in 10 minutes. Qty: 25 Refills: 0 insulin NPH 100 unit/mL Subcutaneous Suspension Inject 26 Units under the skin (SUBC) two times daily before meals. Qty: 1 Refills: 1 insulin regular 100 unit/mL Injection Solution Inject 1-16 Units under the skin (SUBC) three times daily before meals. See attached slidi ng scale. Start using only after your Aspart insulin has run out. Qty: 1 Refills: 1 insulin regular 100 unit/mL Injection Solution Inject 8 Units under the skin (SUBC) three times daily before meals. Start using only afte r your Aspart insulin runs out. Qty: 1 Refills: 1 lisinopril 5 mg Oral Tablet Take 1 Tab by mouth once daily. Qty: 30 Refills: 0 lovastatin 20 mg Oral Tablet Take 1 Tab by mouth once daily in the evening. Administer with evening meal. Qty: 30 Refills: 0 medroxyPROGESTERone 10 mg Oral Tablet Take 2 Tabs by mouth once daily. Qty: 30 Refills: 0 metoprolol 25 mg Oral Tablet Take 1 Tab by mouth two times daily. Qty: 60 Refills: 0 MISCELLANEOUS MEDICAL SUPPLY (RX TAPE PAPER) As instructed Qty: 6 Refills: 1 oxycodone, immediate release, 5 mg Oral Tablet Take 1 Tab by mouth every six hours as needed. Qty: 200 Refills: 0 warfarin 5 mg Oral Tablet Take 1 Tab by mouth once daily in the evening. Qty: 30 Refills: 0 See attached sliding scale Diet: 2gm sodium restriction, diabetic diet Activity: Up as tolerated. Carlito pillow for left hand as needed Special Instructions: None Dressing Changes: May shower, no baths. Do not get left arm or hand wet. Once a day to left arm: 1. Xeroform to incision line and open area 2. Cover with kerlix roll and secure with tape Once a day to open area on right leg 1. Xeroform to open area 2. Cover with gauze and secure with tape Circaids: Yes ( ) No ( x) Call: [phone] If you have any of the following: Difficulty breathing or unusual shortness of breath Excessive bleeding, drainage at the operative site Fevers, chills, increased pain that is not relieved by pain medications Persistent nausea or vomiting Other SPECIFIC concerns, such as: None Follow Up Appointments: PCP: None. List of [facility] clinics provided to patient Other: Vascular Surgery 12/12 at 2:30 pm [phone], Lucio Omer, 3rd floor Orthopedic Hand Surgery Clinic, Dr Jhon Cabello 12/13 at 1015 , 12 floor [facility], [facility] Anticoagulation Clinic 12/06 at 1 pm [phone] Call [facility], Dr. Avery Lee, for appointment on to evaluate you for hysterectomy , Women's Health, Patricia Omer Follow Up Tests: (Tests at [facility] must be entered into [facility]) None Condition On Discharge:stable Vital Signs at discharge as appropriate: Wt 69.3 kg (152 lbs 12.5 oz)( < 3 %ile), BP 112/71 , Pulse 85, Temperature 36.3 C (97.3 F), RR 13, SpO2 100%. Discharge Patient To: Home with son for assistance Does patient have a planned readmission: No Discharge Summary completed: yes Discharging Provider: Kaela Molina [facility] Date Completed: 12/04/08 Time Completed: 1100 Discharging Attending:Roc Rae MD CC: PCP: No PCP Referring Physician: GRACIELA MOSELEY MD INPATIENT NURSE ORDER FOR DISCHARGE AND INTERDISCIPLINARY INSTRUCTIONS DISCHARGE DATE: 12/04/2008 PATIENT EDUCATION: Patient given the following printed education materials Diabetes, Insulin, SQ injections, CBG testing Review with patient/family: Understanding of disease/injury/surgical repair Yes Signs/symptoms that they should report Yes Understanding of medications and side effects Yes Activity and diet instructions Yes Follow-up appointments Yes Any concerns/fears N/A Smoking Cessation Counseling/Information was given on admission. Additional Instructions: (ex: daily weights, wound care, tube feeding, trach care, CBG marilu toring etc.) Follow instructions as written Personal Effects/Medications: Sent home with patient Discharged Via: Ambulatory Mode of Transportation: Car Accompanied by: Family/Responsible Republican Discharge Nurse: CASANDRA Date: 12/04/2008 Discharge Time: 12:07 PM AttachmentsThe following attachments cannot be sent through Care Everywhere.Adult Health Ad visor 2008.1: [facility] Gl[facility]Ad[facility] Health Advisor 2008.1: Diabetes Mellitus: Type 2Adu Health Advisor 2008.1: Diabetes Overview (Living with Diabetes)Adult Health Advisor 2008.1: Diabetes: Food ManagementAdlos al[facility] medical center Health Advisor 2008.1: Diabetes: Self Blood Glucose Monitorin g (SBGM)Adult Health Advisor 2008.1: How to Give a Subcutaneous Shot: IllustrationAdult Heal th Advisor 2008.1: Diabetes: InfectionsMedication Advisor 2008.2: Warfarin, OralCardiology A dvisor 2008.1: WarfarinMedication Advisor 2008.2: Medroxyprogesterone Acetate, Oraldocumente d in this encounter Medications at Time of Discharge + + + +---------+ + + | Medication | Sig | Dispensed | Refills | Start | End Date | | | | | | Date | | + + + +---------+ + + | acetaminophen 650 | Take 650 mg by mouth | 100 | 0 | 11/13/19 | | | mg Oral Tablet | every four hours as | | | 09 | | | | needed. | | | | | + + + +---------+ + + | MISCELLANEOUS | As instructed | 6 | 1 | 12/05/19 | | | MEDICAL SUPPLY (RX | | | | 09 | 9 | | TAPE PAPER) | | | | | | + + + +---------+ + + documented as of this encounter Progress Notes Carlin Clemente MD - 12/03/2008 9:54 PM PDTFormatting of this note might be different f rom the original. VASCULAR SURGERY INPATIENT PROGRESS NOTE Hospital Day:27 Author; CARLIN CLEMENTE MD Attending Physician: Roc Rae MD Interval Hx: no events, pain well controlled, nervous about d/c. Physical Exam: Last Vitals: BP 131/71 | Pulse 97 | Temp 36.9 C (98.4 F) | Resp 18 | Ht 1.435 m (4' 8.5 ") | Wt 75.7 kg (166 lb 14.2 oz) | SpO2 99% O2 Delivery Device: None (room air) (12/03/08 7:32 PM) 24 Hour Vital Min/Max: Systolic (24hrs), Min:106 mmHg, Max:158 mmHg Diastolic (24hrs), Min:67 mmHg, Max:103 mmHg Pulse Min: 78 Max: 97 Temp Min: 36.7 C (98.1 F) Max: 37.1 C (98.8 F) Resp Min: 16 Max: 20 SpO2 Min: 98 % Max: 100 % Intake/Output Summary (Last 24 hours) at 12/03/082153 Last data filed at 12/03/08 1932 Gross per 24 hour Intake 1545 ml Output 2450 ml Net -905 ml Physical Exam: General: AOX3, NAD Respiratory: CTA-B Cardiovascular: RRR, no MGR Abdomen: Soft, nontender, nondistended. Skin: wwp, non-diaphoretic Extremities: Dressing changed, barbi left in place, graft site with good granulation bed, no evidence of infection. Chemistries: Last 72 Hours (or 3 results): Recent Labs Basename 12/03/0871612/02/0860712/01/08707 NA 143 140 142 K 4.2 3.6 4.0 CL 111* 108 111* BICARB 26 25 25 BUN 10 11 7 CR 0.70 0.64 0.57* CA 9.1 8.7 8.9 MG 2.3 2.1 2.2 PO4 4.0 4.5 4.4 CBC with diff last 72 hours (or 3 results) Recent Labs Basename 12/03/0871612/02/0860712/01/08707 WBC 15.1* 13.1* 13.7* HB 8.5* 7.3* 8.0* HCT 26.0* 22.2* 23.8* PLT 632* 572* 675* NEUTROPERC -- -- -- BANDPCT -- -- -- LYMPHPERC -- -- -- MONOPERC -- -- -- BASOPERC -- -- -- EOSPERC -- -- -- FACTOR V LEIDEN: NO MUTATION PROTHROMBIN GENE MUTATION: NO MUTATION PROTEIN S ANTIGEN,FREE 113 range 55 - 123 % Patients on oral anticoagulants may have decreased free protein S values. Patients should be off oral anticoagulant therapy for two weeks for accurate measurement of free protein S levels. Assessment and Plan: S/p skin graft, doing well, bridging to coumadin. Dispo planning for insulin, wound care, and anticoag tx. D/C barbi tomorrow. Dispo planning. Home health. CARLIN CLEMENTE MD BoTasha gillette - Ek[place] 3:16 PM PDTOT contact note: New OT orders received 12/02 but pt was seen by OT on 11/29 and discharged from services as she was independent with ADL and mobility. Recommendati ons were made for follow-up outpatient OT services, to address UE exercises once dressings a re removed and wounds healed. Per chart review, there is no indication of decline since last seen by OT and per RN there have not been significant changes. Will dc from acute care OT a t this time as pt plans to dc home with assist from family. Continue to recommend outpatient hand OT once appropriate. Thank you. Pager #[phone] signed by Tasha Lopez at 12/03/2008 3:19 PM Brittney Raya MD - 12/03/2008 9:08 AM PDTFormatting of this note might be different from the origin al. HOSPITALIST INPATIENT PROGRESS NOTE Hospital Day:27 Author; TORRES العراقي MD Attending Physician: Roc Rae MD Interval Hx: Lying comfortably in bed. No shortness of breath or chest pain. No nausea/vomi ting. Meds: acetaminophen (aka TYLENOL) tablet 650 mg, 650 mg, Oral, Q4H PRN bisacodyl (aka DULCOLAX) suppository 10 mg, 10 mg, Rectal, BID PRN bisacodyl EC (aka DULCOLAX) tablet 5 mg, 5 mg, Oral, DAILY PRN ceFAZolin (aka ANCEF) injection 1 g, 1 g, Intravenous, Q8H dextrose injection 25 mL, 12.5 g, Intravenous, Q15MIN PRN diphenhydrAMINE (aka BENADRYL) capsule 25 mg, 25 mg, Oral, Q8H PRN docusate sodium (aka COLACE) capsule 100 mg, 100 mg, Oral, BID PRN enoxaparin (aka LOVENOX) injection 80 mg, 80 mg, Subcutaneous, BID glucagon (aka GLUCAGEN) injection 1 mg, 1 mg, Subcutaneous, Q15MIN PRN glucose chewable tablet 15 g, 15 g, Oral, Q15MIN PRN heparin lock flush IV 50 Units, 50 Units, Intravenous, PRN HYDROmorphone (aka DILAUDID) injection 1-2 mg, 1-2 mg, Intravenous, Q4H PRN insulin aspart (aka NOVOLOG) injection 1-16 Units, 1-16 Units, Subcutaneous, AC and HS insulin aspart (aka NOVOLOG) injection 8 Units, 8 Units, Subcutaneous, TID AC insulin NPH (aka HUMULIN N,NOVOLIN N) injection 26 Units, 26 Units, Subcutaneous, Q12H lisinopril (aka PRINIVIL) tablet 5 mg, 5 mg, Oral, DAILY medroxyPROGESTERone (aka PROVERA) tablet 20 mg, 20 mg, Oral, DAILY metoprolol (aka LOPRESSOR) tablet 25 mg, 25 mg, Oral, BID naloxone (aka NARCAN) injection, , Intravenous, PRN ondansetron (aka ZOFRAN) injection 4 mg, 4 mg, Intravenous, Q12H PRN oxycodone immediate release (aka ROXICODONE) tablet 5-20 mg, 5-20 mg, Oral, Q3H PRN promethazine (aka PHENERGAN) injection 12.5 mg, 12.5 mg, Intravenous, Q6H PRN senna-docusate (aka SENOKOT S) 8.6-50 mg 1 Tab, 1 Tab, Oral, BID simethicone chew (aka MYLICON) tablet 80 mg, 80 mg, Oral, TID PRN simvastatin (aka ZOCOR) tablet 10 mg, 10 mg, Oral, QPM warfarin (aka COUMADIN) tablet 2.5 mg, 2.5 mg, Oral, QPM Physical Exam: Last Vitals: BP 155/103 | Pulse 90 | Temp 37 C (98.6 F) | Resp 20 | Ht 1.435 m (4' 8.5" ) | Wt 75.7 kg (166 lb 14.2 oz) | SpO2 100% O2 Delivery Device: None (room air) (12/03/08 8:10 AM) Intake/Output Summary (Last 24 hours) at 12/03/08907 Last data filed at 12/03/08809 Gross per 24 hour Intake 1550 ml Output 2950 ml Net -1400 ml General Appearance: Alert and Awake Respiratory: Equal air entry b/l, Normal vesicular breath sounds b/l Cardiovascular: 1st and 2nd heart sounds regular rate and rhythm Gastrointestinal: Soft, Bowel sounds+ LABS REVIEWED: Chemistries: Last 72 Hours (or 3 results): Recent Labs Basename 12/03/0871612/02/0860712/01/08707 NA 143 140 142 K 4.2 3.6 4.0 CL 111* 108 111* BICARB 26 25 25 BUN 10 11 7 CR 0.70 0.64 0.57* CA 9.1 8.7 8.9 MG 2.3 2.1 2.2 PO4 4.0 4.5 4.4 CBC with diff last 72 hours (or 3 results) Recent Labs Basename 12/03/0871612/02/0860712/01/08707 WBC 15.1* 13.1* 13.7* HB 8.5* 7.3* 8.0* HCT 26.0* 22.2* 23.8* PLT 632* 572* 675* NEUTROPERC -- -- -- BANDPCT -- -- -- LYMPHPERC -- -- -- MONOPERC -- -- -- BASOPERC -- -- -- EOSPERC -- -- -- CBG Result ($) Min: 123 Max: 253 LastCBG CBG Result ($): 123 (12/03/08 8:10 AM) CBG Intervention: Medication given (12/02/08 9:00 PM) Assessment/Plan: 53 yr old with newly diagnosed DM 2 Diet : Restrict caloric intake 1600 calories, 2g salt, low fat. CBG Result ($) Min: 123 Max: 253 LastCBG CBG Result ($): 123 (12/03/08 8:10 AM) CBG Intervention: Medication given (12/02/08 9:00 PM) Target glucose : Fasting <140 and Random <180 (Non-ICU patients) Home Rx : Nil Current Rx : NPH 26 units q12h and aspart 10 un ac with SSI IV fluids : Nil BMP : Noted Hypoglycemia : Nil Other pertinent factors : Newly diagnosed, infection left hand Recommendations: Needs a family member to learn injection of insulin as she is unable to use the left arm. Discussed with koby molina as patient is concerned about not being able to afford the in sulin. However the patient's Hba1c is 14 and is requiring 82 U of insuin per day total, so s he does need Insulin. 11/28: though sugar was 232 yesterday pm post surgery, will continue same dose of insulin fo r now given that it's better controlled now on the previous regimen and observe. -Patient with blood sugar of 69 this pm. Hold tonights aspart, and reduce NPH to 16 U q 12h rs and aspart 5 U tid ac from am. 11/29: sugars up again, increased NPH to 22 U s.c q 12hrs and aspart 8 U tid a/c. 11/30: Good control, continue same dose of insulin regimen for now. 12/01: increase the NPH to 24 U s.c bid. 12/02: increase NPH to 26 U s.c bid from tonight onwards. D/cd D5LR 12/03: continue same dose of Insulin NPH 26 U s.c bid and Aspart 8 U tid before meals upon d /c. Have patient f/u closely with pcp. Ensure that patient has insulin/dm teaching re: self administration along with a coronary care unit nurse as she's only able to use 1 hand currently. Ensure th at she has a glucometer with strips at home. Notified Carlin Clemente Will sign off, please re-consult if needed. TORRES العراقي MD Floral Managerautomatic car wash attendant Clinical Hospitalist Service Division of Hospital Medicine Department of Medicine [facility] DEPARTMENT: Hosp ([facility])- [phone] Place of Service: IP - [id number] Modifiers:GC Resident Involved: No CPT: 91911 Subsequent Visit Prob Focused/Low Complexity 15 min Carlin Sorenson MD - 12/02/2008 4:08 PM PDT VASCULAR SURGERY INPATIENT PROGRESS NOTE Hospital Day: Author; CARLIN CLEMENTE MD Attending Physician: Roc Rae MD Interval Hx: nothing o/n. Physical Exam: Last Vitals: BP 124/78 | Pulse 81 | Temp 37.2 C (99 F) | Resp 22 | Ht 1.435 m (4' 8.5") | Wt 75.7 kg (166 lb 14.2 oz) | SpO2 98% O2 Delivery Device: None (room air) ( 2:53 PM) 24 Hour Vital Min/Max: Systolic (24hrs), Min:114 mmHg, Max:158 mmHg Diastolic (24hrs), Min:66 mmHg, Max:90 mmHg Pulse Min: 76 Max: 102 Temp Min: 36.5 C (97.7 F) Max: 37.2 C (99 F) Resp Min: 16 Max: 22 SpO2 Min: 97 % Max: 100 % Intake/Output Summary (Last 24 hours) at 12/02/08 1608 Last data filed at 12/02/08 1500 Gross per 24 hour Intake 1445 ml Output 3250 ml Net -1805 ml Physical Exam: General: AOX3, NAD Respiratory: CTA-B Cardiovascular: RRR, no MGR Abdomen: Soft, nontender, nondistended. Skin: wwp, non-diaphoretic Extremities: Wound vac removed, barbi left in place, graft site with good granulation bed , no evidence of infection. Chemistries: Last 72 Hours (or 3 results): Recent Labs Basename 12/02/0860712/01/0870711/30/08535 NA 140 142 138 K 3.6 4.0 3.9 CL 108 111* 109* BICARB 25 25 23 BUN 11 7 13 CR 0.64 0.57* 0.62 CA 8.7 8.9 8.6 MG 2.1 2.2 2.1 PO4 4.5 4.4 4.0 CBC with diff last 72 hours (or 3 results) Recent Labs Basename 12/02/0860712/01/0870711/30/08535 WBC 13.1* 13.7* 13.8* HB 7.3* 8.0* 7.8* HCT 22.2* 23.8* 23.5* PLT 572* 675* 689* NEUTROPERC -- -- -- BANDPCT -- -- -- LYMPHPERC -- -- -- MONOPERC -- -- -- BASOPERC -- -- -- EOSPERC -- -- -- FACTOR V LEIDEN: NO MUTATION PROTHROMBIN GENE MUTATION: NO MUTATION Assessment and Plan: Skin graft POD4, doing well, bridging to coumadin. Dispo planning for insulin, wound care, and anticoag tx. CARLIN CLEMENTE MD Torres Raya MD - 12/02/2008 9:01 AM PDT HOSPITALIST INPATIENT PROGRESS NOTE Hospital Day: Author; TORRES العراقي MD Attending Physician: Roc Rae MD Glycemic team follow up:Interval Hx: Lying comfortably in bed. No shortness of breath or ch est pain. Meds: acetaminophen (aka TYLENOL) tablet 650 mg, 650 mg, Oral, Q4H PRN bisacodyl (aka DULCOLAX) suppository 10 mg, 10 mg, Rectal, BID PRN bisacodyl EC (aka DULCOLAX) tablet 5 mg, 5 mg, Oral, DAILY PRN ceFAZolin (aka ANCEF) injection 1 g, 1 g, Intravenous, Q8H dextrose 5%-lactated ringers IV, , Intravenous, CONTINUOUS dextrose injection 25 mL, 12.5 g, Intravenous, Q15MIN PRN diphenhydrAMINE (aka BENADRYL) capsule 25 mg, 25 mg, Oral, Q8H PRN docusate sodium (aka COLACE) capsule 100 mg, 100 mg, Oral, BID PRN enoxaparin (aka LOVENOX) injection 80 mg, 80 mg, Subcutaneous, BID glucagon (aka GLUCAGEN) injection 1 mg, 1 mg, Subcutaneous, Q15MIN PRN glucose chewable tablet 15 g, 15 g, Oral, Q15MIN PRN heparin lock flush IV 50 Units, 50 Units, Intravenous, PRN HYDROmorphone (aka DILAUDID) injection 1-2 mg, 1-2 mg, Intravenous, Q4H PRN insulin aspart (aka NOVOLOG) injection 1-16 Units, 1-16 Units, Subcutaneous, AC and HS insulin aspart (aka NOVOLOG) injection 8 Units, 8 Units, Subcutaneous, TID AC insulin NPH (aka HUMULIN N,NOVOLIN N) injection 24 Units, 24 Units, Subcutaneous, Q12H lisinopril (aka PRINIVIL) tablet 5 mg, 5 mg, Oral, DAILY medroxyPROGESTERone (aka PROVERA) tablet 20 mg, 20 mg, Oral, DAILY metoprolol (aka LOPRESSOR) tablet 25 mg, 25 mg, Oral, BID naloxone (aka NARCAN) injection, , Intravenous, PRN ondansetron (aka ZOFRAN) injection 4 mg, 4 mg, Intravenous, Q12H PRN oxycodone immediate release (aka ROXICODONE) tablet 5-20 mg, 5-20 mg, Oral, Q3H PRN promethazine (aka PHENERGAN) injection 12.5 mg, 12.5 mg, Intravenous, Q6H PRN senna-docusate (aka SENOKOT S) 8.6-50 mg 1 Tab, 1 Tab, Oral, BID simethicone chew (aka MYLICON) tablet 80 mg, 80 mg, Oral, TID PRN simvastatin (aka ZOCOR) tablet 10 mg, 10 mg, Oral, QPM warfarin (aka COUMADIN) tablet 5 mg, 5 mg, Oral, QPM Physical Exam: Last Vitals: BP 114/66 | Pulse 80 | Temp 36.9 C (98.4 F) | Resp 16 | Ht 1.435 m (4' 8.5 ") | Wt 75.7 kg (166 lb 14.2 oz) | SpO2 98% O2 Delivery Device: None (room air) (12/02/08 7:24 AM) Intake/Output Summary (Last 24 hours) at 12/02/08 09 Last data filed at 12/02/08 0800 Gross per 24 hour Intake 1070 ml Output 2750 ml Net -1680 ml General Appearance: Alert and Awake Respiratory: Equal air entry b/l, Normal vesicular breath sounds b/l Cardiovascular: 1st and 2nd heart sounds regular rate and rhythm Gastrointestinal: Soft, Nondistended, Nontender, no masses palpable, Bowel sounds+ Musculoskeletal: No pedal edema. LABS REVIEWED: Chemistries: Last 72 Hours (or 3 results): Recent Labs Basename 12/02/0860712/01/0870711/30/08535 NA 140 142 138 K 3.6 4.0 3.9 CL 108 111* 109* BICARB 25 25 23 BUN 11 7 13 CR 0.64 0.57* 0.62 CA 8.7 8.9 8.6 MG 2.1 2.2 2.1 PO4 4.5 4.4 4.0 CBC with diff last 72 hours (or 3 results) Recent Labs Basename 12/02/0860712/01/0870711/30/0836 WBC 13.1* 13.7* 13.8* HB 7.3* 8.0* 7.8* HCT 22.2* 23.8* 23.5* PLT 572* 675* 689* NEUTROPERC -- -- -- BANDPCT -- -- -- LYMPHPERC -- -- -- MONOPERC -- -- -- BASOPERC -- -- -- EOSPERC -- -- -- CBG Result ($) Min: 123 Max: 233 LastCBG CBG Result ($): 148 (12/02/08 8:52 AM) CBG Intervention: Medication given (12/01/08 9:59 PM) Assessment/Plan: 53 yr old with newly diagnosed DM 2 Diet : Restrict caloric intake 1600 calories, 2g salt, low fat. CBG Result ($) Min: 123 Max: 233 LastCBG CBG Result ($): 148 (12/02/08 8:52 AM) CBG Intervention: Medication given (12/01/08 9:59 PM) Target glucose : Fasting <140 and Random <180 (Non-ICU patients) Home Rx : Nil Current Rx : NPH 26 units q12h and aspart 10 un ac with SSI IV fluids : Nil BMP : Noted Hypoglycemia : Nil Other pertinent factors : Newly diagnosed, infection left hand Recommendations: Needs a family member to learn injection of insulin as she is unable to us e the left arm. Discussed with koby molina as patient is concerned about [facility] being [facility] However the patient's Hba1c is 14 and is requiring 82 U of insuin per day total, so s he does need Insulin. 11/28: though sugar was 232 yesterday pm post surgery, will continue same dose of insulin fo r now given that it's better controlled now on the previous regimen and observe. -Patient with blood sugar of 69 this pm. Hold tonights aspart, and reduce NPH to 16 U q 12h rs and aspart 5 U tid ac from am. 11/29: sugars up again, increased NPH to 22 U s.c q 12hrs and aspart 8 U tid a/c. 11/30: Good control, continue same dose of insulin regimen for now. 12/01: increase the NPH to 24 U s.c bid. 12/02: increase NPH to 26 U s.c bid. D/c D5LR TORRES العراقي MD Floral Managerautomatic car wash attendant Clinical Hospitalist Service Division of [facility] Department of Medicine [facility] DEPARTMENT: Hosp ([facility])- [phone] Place of Service: - [id number] Modifiers:GC Resident Involved: No CPT: 71598 Subsequent Visit Prob Focused/Low Complexity 15 min arlin Clemente MD - 12/01/2008 4:18 PM PDT VASCULAR SURGERY INPATIENT PROGRESS NOTE Hospital Day: Author; CARLIN CLEMENTE MD Attending Physician: Roc Rea MD Interval Hx: no events. Physical Exam: Last Vitals: BP 138/90 | Pulse 89 | Temp 36.7 C (98.1 F) | Resp 18 | Ht 1.435 m (4' 8.5 ") | Wt 75.9 kg (167 lb 5.3 oz) | SpO2 100% O2 Delivery Device: None (room air) (12/01/08 4:15 PM) 24 Hour Vital Min/Max: Systolic (24hrs), Min:108 mmHg, Max:188 mmHg Diastolic (24hrs), Min:75 mmHg, Max:108 mmHg Pulse Min: 75 Max: 106 Temp Min: 36.5 C (97.7 F) Max: 37 C (98.6 F) Resp Min: 16 Max: 18 SpO2 Min: 97 % Max: 100 % Intake/Output Summary (Last 24 hours) at 12/01/08 1618 Last data filed at 12/01/08 1400 Gross per 24 hour Intake 670 ml Output 2250 ml Net -1580 ml Physical Exam: General Appearance: NAD Ext: Incisions are C/D/I with no obvious signs of infection, wound vac in place. Chemistries: Last 72 Hours (or 3 results): Recent Labs Basename 12/01/0870711/30/0836 11/29/08 0635 NA 142 138 140 K 4.0 3.9 3.9 CL 111* 109* 110* BICARB 25 23 24 BUN 7 13 9 CR 0.57* 0.62 0.63 CA 8.9 8.6 8.7 MG 2.2 2.1 2.2 PO4 4.4 4.0 3.4 CBC with diff last 72 hours (or 3 results) Recent Labs Basename 12/01/0870711/30/0836 11/29/08 0635 WBC 13.7* 13.8* 11.8* HB 8.0* 7.8* 7.6* HCT 23.8* 23.5* 22.9* PLT 675* 689* 675* NEUTROPERC -- -- -- BANDPCT -- -- -- LYMPHPERC -- -- -- MONOPERC -- -- -- BASOPERC -- -- -- EOSPERC -- -- -- FACTOR V LEIDEN: NO MUTATION PROTHROMBIN GENE MUTATION: NO MUTATION Assessment and Plan: Skin graft POD4, doing well, bridging to coumadin. D/C wound vac tomorrow. Continue to f/u hypercoag w/u. CARLIN CLEMENTE MD arlin Clemente MD - 12/01/2008 12:08 PM PDTPt seen and assessed by myself. Agree with above. Carlin Clemente MD Ambrocio latif - 12/01/2008 12:08 PM PDT Ambrocio Crowder MS IV Progress Notes 12/01/2008 VASCULAR SURGERY INPATIENT PROGRESS NOTE Author: Aniketangel Mcneal Hx: Complains of pain around her incision site and was encouraged to use her PRN m edicine. Pain well controlled once she takes her PRN's; no CP, SOB, N or sweats. Physical Exam: Filed Vitals 12/01/2008 7:59 AM Height: 143.5 cm (4' 8.5")( < 3 %ile) Weight: 75.9 kg (167 lbs 5.3 oz)( < 3 %ile) BP: 142/85 Pulse: 78 Temp: 36.7 C (98.1 F) Resp: 16 SpO2: 97% General Appearance: WDWN in NAD Respiratory: CTAB, No r/r/w Cardiovascular: RRR no G/R/M Gastrointestinal: NTTP, non-distended, without r/r/g Skin: Incisions are C/D/I with no obvious signs of infection, incision under the wound vac appears well healing with the skin graft. Neurologic: No focal deficit Chemistries: Last 72 Hours (or 3 results): Recent Labs Basename 12/01/0870711/30/0853511/29/0835 NA 142 138 140 K 4.0 3.9 3.9 CL 111* 109* 110* BICARB 25 23 24 BUN 7 13 9 CR 0.57* 0.62 0.63 GLU 128* 140* 163* CA 8.9 8.6 8.7 MG 2.2 2.1 2.2 PO4 4.4 4.0 3.4 CBC with diff last 72 hours (or 3 results) Recent Labs Basename 12/01/0870711/30/0853511/29/0835 WBC 13.7* 13.8* 11.8* HB 8.0* 7.8* 7.6* HCT 23.8* 23.5* 22.9* PLT 675* 689* 675* NEUTROPERC -- -- -- BANDPCT -- -- -- LYMPHPERC -- -- -- MONOPERC -- -- -- BASOPERC -- -- -- EOSPERC -- -- -- Assessment and Plan: 53 y.o. 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 She is doing well with pain well controlled on IV medicine. Plan to transition to oral pain medicine D/C wound vac on Wednesday. 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 Check hypercoagulable panel which is still pending. Ambrocio Crowder MSIV Torres العراقي MD - 12/01/2008 8:59 AM PDTFormatting of this note might be different f rom the original. CLINICAL HOSPITALIST SERVICE ([facility])-PROGRESS NOTE Glycemic team follow up: HOSPITAL DAY: 25 Author: TORRES العراقي MD Subjective: no nausea/vomiting. Physical Exam: Vitals (Most recent): Blood pressure 142/85, pulse 78, temperature 36.7 C (98.1 F), res p. rate 16, height 1.435 m (4' 8.5"), weight 75.9 kg (167 lb 5.3 oz), SpO2 97%. Intake/Output Summary (Last 24 hours) at 12/01/08858 Last data filed at 12/01/08 0700 Gross per 24 hour Intake 370 ml Output 2950 ml Net -2580 ml General : aaox3 Cv; s1, s2 rrr Rsp; b/l nvbs Abd; soft, bs+ Studies: CBC with diff last 72 hours (or 3 results) Recent Labs Basename 12/01/0870711/30/0853511/29/08634 WBC 13.7* 13.8* 11.8* HB 8.0* 7.8* 7.6* HCT 23.8* 23.5* 22.9* PLT 675* 689* 675* NEUTROPERC -- -- -- BANDPCT -- -- -- LYMPHPERC -- -- -- MONOPERC -- -- -- BASOPERC -- -- -- EOSPERC -- -- -- Chemistries: Last 72 Hours (or 3 results): Recent Labs Basename 10/3/09 0708 10/2/09 0536 10/1/09 0635 NA 142 138 140 K 4.0 3.9 3.9 CL 111* 109* 110* BICARB 25 23 24 BUN 7 13 9 CR 0.57* 0.62 0.63 GLU 128* 140* 163* CA 8.9 8.6 8.7 MG 2.2 2.1 2.2 PO4 4.4 4.0 3.4 Lab Results Component Value Date GLU 128 12/01/08 GLU 140 11/30/08 GLU 163 11/29/08 Current Meds: acetaminophen (aka TYLENOL) tablet 650 mg, 650 mg, Oral, Q4H PRN bisacodyl (aka DULCOLAX) suppository 10 mg, 10 mg, Rectal, BID PRN bisacodyl EC (aka DULCOLAX) tablet 5 mg, 5 mg, Oral, DAILY PRN ceFAZolin (aka ANCEF) injection 1 g, 1 g, Intravenous, Q8H dextrose 5%-lactated ringers IV, , Intravenous, CONTINUOUS dextrose injection 25 mL, 12.5 g, Intravenous, Q15MIN PRN diphenhydrAMINE (aka BENADRYL) capsule 25 mg, 25 mg, Oral, Q8H PRN docusate sodium (aka COLACE) capsule 100 mg, 100 mg, Oral, BID PRN enoxaparin (aka LOVENOX) injection 80 mg, 80 mg, Subcutaneous, BID glucagon (aka GLUCAGEN) injection 1 mg, 1 mg, Subcutaneous, Q15MIN PRN glucose chewable tablet 15 g, 15 g, Oral, Q15MIN PRN heparin lock flush IV 50 Units, 50 Units, Intravenous, PRN HYDROmorphone (aka DILAUDID) injection 1-2 mg, 1-2 mg, Intravenous, Q4H PRN insulin aspart (aka NOVOLOG) injection 1-16 Units, 1-16 Units, Subcutaneous, AC and HS insulin aspart (aka NOVOLOG) injection 8 Units, 8 Units, Subcutaneous, TID AC insulin NPH (aka HUMULIN N,NOVOLIN N) injection 22 Units, 22 Units, Subcutaneous, Q12H lisinopril (aka PRINIVIL) tablet 5 mg, 5 mg, Oral, DAILY medroxyPROGESTERone (aka PROVERA) tablet 20 mg, 20 mg, Oral, DAILY metoprolol (aka LOPRESSOR) tablet 25 mg, 25 mg, Oral, BID naloxone (aka NARCAN) injection, , Intravenous, PRN ondansetron (aka ZOFRAN) injection 4 mg, 4 mg, Intravenous, Q12H PRN oxycodone immediate release (aka ROXICODONE) tablet 5-20 mg, 5-20 mg, Oral, Q3H PRN promethazine (aka PHENERGAN) injection 12.5 mg, 12.5 mg, Intravenous, Q6H PRN senna-docusate (aka SENOKOT S) 8.6-50 mg 1 Tab, 1 Tab, Oral, BID simethicone chew (aka MYLICON) tablet 80 mg, 80 mg, Oral, TID PRN simvastatin (aka ZOCOR) tablet 10 mg, 10 mg, Oral, QPM warfarin (aka COUMADIN) tablet 5 mg, 5 mg, Oral, QPM Assessment/Plan: 53 yr old with newly diagnosed DM 2 Diet : Restrict caloric intake 1600 calories, 2g salt, low fat. CBG Result ($) Min: 123 Max: 227 LastCBG CBG Result ($): 170 (12/01/08 8:24 AM) CBG Intervention: Medication given (11/30/08 9:00 PM) Target glucose : Fasting <140 and Random <180 (Non-ICU patients) Home Rx : Nil Current Rx : NPH 26 units q12h and aspart 10 un ac with SSI IV fluids : Nil BMP : Noted Hypoglycemia : Nil Other pertinent factors : Newly diagnosed, infection left hand Recommendations: Continue NPH 26 units q12h for now, continue aspart 10 u tid and SSI. Needs a family member to learn injection of insulin as she is unable to use the left arm. Discussed with koby molina as patient is concerned about not being able to afford the in [facility]. However the patient's Hba1c is 14 and is requiring 82 U of insuin per day total, so s he does need Insulin. 11/28: though sugar was 232 yesterday pm post surgery, will continue same dose of insulin fo r now given that it's better controlled now on the previous regimen and observe. -Patient with blood sugar of 69 this pm. Hold tonights aspart, and reduce NPH to 16 U q 12h rs and aspart 5 U tid ac from am. 11/29: sugars up again, increased NPH to 22 U s.c q 12hrs and aspart 8 U tid a/c. 11/30: Good control, continue same dose of insulin regimen for now. 12/01: increase the NPH to 24 U s.c bid. TORRES العراقي MD [facility] [address] [facility] DEPARTMENT: Hosp ([facility])- [phone] Place of Service: - [phone] [facility] [phone] CPT: 65296 Subsequent Visit Prob Focused/Low Complexity 15 min Total time spent on this encounter: 20 Carlin Sorenson MD - 11/30/2008 9:14 PM PDT Ambrocio Crowder MS IV Progress Notes 11/30/2008 VASCULAR SURGERY INPATIENT PROGRESS NOTE Author: Ambrocio Crowder Interval Hx: Wound vac sponge changed and the skin graft is healing well. Some emesis durin g dressing change. Pain well controlled; no CP, SOB, N or sweats. Physical Exam: Filed Vitals 11/30/2008 8:17 PM Height: 143.5 cm (4' 8.5")( < 3 %ile) Weight: 75.8 kg (167 lbs 1.7 oz)( < 3 %ile) BP: 158/95 Pulse: 106 Temp: 36.8 C (98.2 F) Resp: 18 SpO2: 99% General Appearance: WDWN in NAD Respiratory: CTAB, No r/r/w Cardiovascular: RRR no G/R/M Gastrointestinal: NTTP, non-distended, without r/r/g Skin: Incisions are C/D/I with no obvious signs of infection, incision under the wound vac appears well healing with the skin graft.. Neurologic: No focal deficit Recent Labs Basename 11/30/08 0536 11/29/08 0635 11/28/08 0730 NA 138 140 137 K 3.9 3.9 3.7 CL 109* 110* 108 BICARB 23 24 25 BUN 13 9 8 CR 0.62 0.63 0.73 GLU 140* 163* 168* CA 8.6 8.7 8.3* MG 2.1 2.2 2.1 PO4 4.0 3.4 3.5 CBC with diff last 72 hours (or 3 results) Recent Labs Basename 11/30/08 0536 11/29/08 0635 11/28/08 0730 WBC 13.8* 11.8* 13.6* HB 7.8* 7.6* 7.4* HCT 23.5* 22.9* 22.4* PLT 689* 675* 711* NEUTROPERC -- -- -- BANDPCT -- -- -- LYMPHPERC -- -- -- MONOPERC -- -- -- BASOPERC -- -- -- EOSPERC -- -- -- Assessment and Plan: 53 y.o. 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 She is doing well with pain well controlled. Plan to d/c wound vac on Wednesday. 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 Check hypercoagulable panel which is still pending. Pt seen and examined by brandin, agree with MS note. Carlin Clemente MD Torres edge MD - 11/30/2008 6:19 PM PDTFormatting of this note might be different fr om the original. CLINICAL HOSPITALIST SERVICE (CHS)-PROGRESS NOTE Glycemic team follow up: HOSPITAL DAY: 24 Author: TORRES العراقي MD Subjective: no sob/chest pain or nausea. Physical Exam: Vitals (Most recent): Blood pressure 145/78, pulse 76, temperature 36.5 C (97.7 F), res p. rate 16, height 1.435 m (4' 8.5"), weight 75.8 kg (167 lb 1.7 oz), SpO2 98%. Intake/Output Summary (Last 24 hours) at 11/30/08 1820 Last data filed at 11/30/08 1600 Gross per 24 hour Intake 610 ml Output 1850 ml Net -1240 ml General : aaox3 Cv: s1, s2 rrr Resp: b/l nvbs Abd: soft, bs+ Studies: CBC with diff last 72 hours (or 3 results) Recent Labs Basename 11/30/0853511/29/0863411/28/08 0730 WBC 13.8* 11.8* 13.6* HB 7.8* 7.6* 7.4* HCT 23.5* 22.9* 22.4* PLT 689* 675* 711* NEUTROPERC -- -- -- BANDPCT -- -- -- LYMPHPERC -- -- -- MONOPERC -- -- -- BASOPERC -- -- -- EOSPERC -- -- -- Chemistries: Last 72 Hours (or 3 results): Recent Labs Basename 11/30/0853511/29/0863411/28/08 0730 NA 138 140 137 K 3.9 3.9 3.7 CL 109* 110* 108 BICARB 23 24 25 BUN 13 9 8 CR 0.62 0.63 0.73 GLU 140* 163* 168* CA 8.6 8.7 8.3* MG 2.1 2.2 2.1 PO4 4.0 3.4 3.5 Lab Results Component Value Date GLU 140 11/30/08 GLU 163 11/29/08 GLU 168 11/28/08 Current Meds: acetaminophen (aka TYLENOL) tablet 650 mg, 650 mg, Oral, Q4H PRN bisacodyl (aka DULCOLAX) suppository 10 mg, 10 mg, Rectal, BID PRN bisacodyl EC (aka DULCOLAX) tablet 5 mg, 5 mg, Oral, DAILY PRN ceFAZolin (aka ANCEF) injection 1 g, 1 g, Intravenous, Q8H dextrose 5%-lactated ringers IV, , Intravenous, CONTINUOUS dextrose injection 25 mL, 12.5 g, Intravenous, Q15MIN PRN diphenhydrAMINE (aka BENADRYL) capsule 25 mg, 25 mg, Oral, Q8H PRN docusate sodium (aka COLACE) capsule 100 mg, 100 mg, Oral, BID PRN enoxaparin (aka LOVENOX) injection 80 mg, 80 mg, Subcutaneous, BID glucagon (aka GLUCAGEN) injection 1 mg, 1 mg, Subcutaneous, Q15MIN PRN glucose chewable tablet 15 g, 15 g, Oral, Q15MIN PRN heparin lock flush IV 50 Units, 50 Units, Intravenous, PRN HYDROmorphone (aka DILAUDID) injection 1-2 mg, 1-2 mg, Intravenous, Q4H PRN insulin aspart (aka NOVOLOG) injection 1-16 Units, 1-16 Units, Subcutaneous, AC and HS insulin aspart (aka NOVOLOG) injection 8 Units, 8 Units, Subcutaneous, TID AC insulin NPH (aka HUMULIN N,NOVOLIN N) injection 22 Units, 22 Units, Subcutaneous, Q12H lisinopril (aka PRINIVIL) tablet 5 mg, 5 mg, Oral, DAILY medroxyPROGESTERone (aka PROVERA) tablet 20 mg, 20 mg, Oral, DAILY metoprolol (aka LOPRESSOR) tablet 25 mg, 25 mg, Oral, BID naloxone (aka NARCAN) injection, , Intravenous, PRN ondansetron (aka ZOFRAN) injection 4 mg, 4 mg, Intravenous, Q12H PRN oxycodone immediate release (aka ROXICODONE) tablet 5-20 mg, 5-20 mg, Oral, Q3H PRN promethazine (aka PHENERGAN) injection 12.5 mg, 12.5 mg, Intravenous, Q6H PRN senna-docusate (aka SENOKOT S) 8.6-50 mg 1 Tab, 1 Tab, Oral, BID simethicone chew (aka MYLICON) tablet 80 mg, 80 mg, Oral, TID PRN simvastatin (aka ZOCOR) tablet 10 mg, 10 mg, Oral, QPM warfarin (aka COUMADIN) tablet 5 mg, 5 mg, Oral, QPM Assessment/Plan: 53 yr old with newly diagnosed DM 2 Diet : Restrict caloric intake 1600 calories, 2g salt, low fat. CBG Result ($) Min: 123 Max: 167 LastCBG CBG Result ($): 123 (11/30/08 5:27 PM) CBG Intervention: Medication given (11/28/08 8:47 PM) Target glucose : Fasting <140 and Random <180 (Non-ICU patients) Home Rx : Nil Current Rx : NPH 26 units q12h and aspart 10 un ac with SSI IV fluids : Nil BMP : Noted Hypoglycemia : Nil Other pertinent factors : Newly diagnosed, infection left hand Recommendations: Continue NPH 26 units q12h for now, continue aspart 10 u tid and SSI. Needs a family member to learn injection of insulin as she is unable to use the left arm. Discussed with koby molina as patient is [facility] However the patient's Hba1c is 14 and is requiring 82 U of insuin per day total, so s he does need Insulin. 11/28: though sugar was 232 yesterday pm post surgery, will continue same dose of insulin fo r now given that it's better controlled now on the previous regimen and observe. Addendum: Patient with blood sugar of 69 this pm. Hold tonights aspart, and reduce NPH to 16 U q 12hr s and aspart 5 U tid ac from am. 11/29: sugars up again, increased NPH to 22 U s.c q 12hrs and aspart 8 U tid a/c. 11/30: Good control, continue same dose of insulin regimen for now. TORRES العراقي MD [facility] 13 Clinical Hospitalist Service [facility] EPIC DEPARTMENT: Hosp ([facility])- [phone] Place of Service: IP - [phone] [facility] [phone] CPT: 22415 Subsequent Visit Prob Focused/Low Complexity 15 min Total time spent on this encounter: 20 Torres Raya MD - 11/29/2008 9:03 AM PDT CLINICAL HOSPITALIST SERVICE ([facility])-PROGRESS NOTE Glycemic team follow up: HOSPITAL DAY: 23 Author: TORRES العراقي MD Subjective: no sob/chest pain/headaches. Physical Exam: Vitals (Most recent): Blood pressure 153/93, pulse 78, temperature 36.7 C (98.1 F), res p. rate 16, height 1.435 m (4' 8.5"), weight 76.5 kg (168 lb 10.4 oz), SpO2 98%. Intake/Output Summary (Last 24 hours) at 11/29/08 0903 Last data filed at 11/29/08 0700 Gross per 24 hour Intake 570 ml Output 3060 ml Net -2490 ml General : aaox3 Cv: S1,s2 rrr Resp: B/l nvbs Abdo: soft bs+ Studies: CBC with diff last 72 hours (or 3 results) Recent Labs Basename 11/29/08 0635 11/28/08 0730 11/27/08 0716 WBC 11.8* 13.6* 11.2* HB 7.6* 7.4* 8.0* HCT 22.9* 22.4* 24.0* PLT 675* 711* 630* NEUTROPERC -- -- -- BANDPCT -- -- -- LYMPHPERC -- -- -- MONOPERC -- -- -- BASOPERC -- -- -- EOSPERC -- -- -- Chemistries: Last 72 Hours (or 3 results): Recent Labs Basename 11/29/08 0635 11/28/08 0730 11/27/08 0716 NA 140 137 139 K 3.9 3.7 4.1 CL 110* 108 107 BICARB 24 25 25 BUN 9 8 10 CR 0.63 0.73 0.60 GLU 163* 168* 115* CA 8.7 8.3* 8.7 MG 2.2 2.1 2.2 PO4 3.4 3.5 3.4 Lab Results Component Value Date GLU 163 11/29/08 GLU 168 11/28/08 GLU 115 11/27/08 Current Meds: acetaminophen (aka TYLENOL) tablet 650 mg, 650 mg, Oral, Q4H PRN bisacodyl (aka DULCOLAX) suppository 10 mg, 10 mg, Rectal, BID PRN bisacodyl EC (aka DULCOLAX) tablet 5 mg, 5 mg, Oral, DAILY PRN ceFAZolin (aka ANCEF) injection 1 g, 1 g, Intravenous, Q8H dextrose 5%-lactated ringers IV, , Intravenous, CONTINUOUS dextrose injection 25 mL, 12.5 g, Intravenous, Q15MIN PRN diphenhydrAMINE (aka BENADRYL) capsule 25 mg, 25 mg, Oral, Q8H PRN docusate sodium (aka COLACE) capsule 100 mg, 100 mg, Oral, BID PRN enoxaparin (aka LOVENOX) injection 80 mg, 80 mg, Subcutaneous, BID glucagon (aka GLUCAGEN) injection 1 mg, 1 mg, Subcutaneous, Q15MIN PRN glucose chewable tablet 15 g, 15 g, Oral, Q15MIN PRN heparin lock flush IV 50 Units, 50 Units, Intravenous, PRN HYDROmorphone (aka DILAUDID) injection 1-2 mg, 1-2 mg, Intravenous, Q4H PRN insulin aspart (aka NOVOLOG) injection 1-16 Units, 1-16 Units, Subcutaneous, AC and HS insulin aspart (aka NOVOLOG) injection 5 Units, 5 Units, Subcutaneous, TID AC insulin NPH (aka HUMULIN N,NOVOLIN N) injection 16 Units, 16 Units, Subcutaneous, Q12H lisinopril (aka PRINIVIL) tablet 5 mg, 5 mg, Oral, DAILY medroxyPROGESTERone (aka PROVERA) tablet 20 mg, 20 mg, Oral, DAILY metoprolol (aka LOPRESSOR) tablet 25 mg, 25 mg, Oral, BID naloxone (aka NARCAN) injection, , Intravenous, PRN ondansetron (aka ZOFRAN) injection 4 mg, 4 mg, Intravenous, Q12H PRN oxycodone immediate release (aka ROXICODONE) tablet 5-20 mg, 5-20 mg, Oral, Q3H PRN promethazine (aka PHENERGAN) injection 12.5 mg, 12.5 mg, Intravenous, Q6H PRN senna-docusate (aka SENOKOT S) 8.6-50 mg 1 Tab, 1 Tab, Oral, BID simethicone chew (aka MYLICON) tablet 80 mg, 80 mg, Oral, TID PRN simvastatin (aka ZOCOR) tablet 10 mg, 10 mg, Oral, QPM Assessment/Plan: 53 yr old with newly diagnosed DM 2 Diet : Restrict caloric intake 1600 calories, 2g salt, low fat. CBG Result ($) Min: 69 Max: 293 LastCBG CBG Result ($): 239 (11/29/08 7:49 AM) CBG Intervention: Medication given (11/28/08 8:47 PM) Target glucose : Fasting <140 and Random <180 (Non-ICU patients) Home Rx : Nil Current Rx : NPH 26 units q12h and aspart 10 un ac with SSI IV fluids : Nil BMP : Noted Hypoglycemia : Nil Other pertinent factors : Newly diagnosed, infection left hand Recommendations: Continue NPH 26 units q12h for now, continue aspart 10 u tid and SSI. Needs a family member to learn injection of insulin as she is unable to use the left arm. Discussed with koby molina as patient is concerned about not being able to afford the in sulin. However the patient's Hba1c is 14 and is requiring 82 U of insuin per day total, so s he does need Insulin. 11/28: though sugar was 232 yesterday pm post surgery, will continue same dose of insulin fo r now given that it's better controlled now on the previous regimen and observe. Addendum: Patient with blood sugar of 69 this pm. Hold tonights aspart, and reduce NPH to 16 U q 12hr s and aspart 5 U tid ac from am. 11/29: sugars up again, increase NPH to 22 U s.c q 12hrs and aspart 8 U tid a/c. TORRES العراقي MD [facility] 11K Clinical Hospitalist Service [facility] EPIC DEPARTMENT: Hosp ([facility])- [phone] Place of Service: [facility] [id number] [facility] [phone] CPT: 88649 Subsequent Visit Prob Focused/Low Complexity 15 min Total time spent on this encounter: 15 Carlin Sorenson MD - 11/29/2008 7:11 AM PDT VASCULAR SURGERY INPATIENT PROGRESS NOTE Author: Ambrocio Mcneal Hx: nothing o/n. Pain well controlled; no CP, SOB, N/V or sweats. Physical Exam: BP 131/90 | Pulse 75 | Temp 36.9 C (98.4 F) | Resp 16 | Ht 1.435 m (4' 8.5") | Wt 76.5 kg (168 lb 10.4 oz) | SpO2 98% Systolic (24hrs), Min:118 mmHg, Max:158 mmHg Diastolic (24hrs), Min:70 mmHg, Max:90 mmHg Pulse Min: 69 Max: 86 Temp Min: 36.1 C (97 F) Max: 37.3 C (99.1 F) Resp Min: 16 Max: 16 SpO2 Min: 97 % Max: 99 % Intake/Output Summary (Last 24 hours) at 11/29/08716 Last data filed at 11/29/08 0500 Gross per 24 hour Intake 810 ml Output 2710 ml Net -1900 ml General Appearance: WDWN in NAD Respiratory: CTAB, No r/r/w Cardiovascular: RRR no G/R/M Gastrointestinal: NTTP Skin: Incisions are C/D/I with no obvious signs of infection, wound vac in place. Neurologic: No focal deficit Chemistries: Last 72 Hours (or 3 results): Recent Labs Basename 11/28/08 0730 11/27/08715 NA 137 139 K 3.7 4.1 CL 108 107 BICARB 25 25 BUN 8 10 CR 0.73 0.60 GLU 168* 115* CA 8.3* 8.7 MG 2.1 2.2 PO4 3.5 3.4 CBC with diff last 72 hours (or 3 results) Recent Labs Basename 11/29/08 0635 11/28/0830 11/27/08 0716 WBC 11.8* 13.6* 11.2* HB 7.6* 7.4* 8.0* HCT 22.9* 22.4* 24.0* PLT 675* 711* 630* NEUTROPERC -- -- -- BANDPCT -- -- -- LYMPHPERC -- -- -- MONOPERC -- -- -- BASOPERC -- -- -- EOSPERC -- -- -- Assessment and Plan: 53 y.o. 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 She is doing well with pain well controlled. Plan to d/c wound vac on Wednesday. 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 F/U hypercoag studies. Pt seen and examined, agree with MS note. Carlin Clemente MD hyna, Carlin Yoon MD - 11/28/2008 6:19 PM PDTR1 Addendum Pt seen and examined, plan for routine post op care and observation with wound vac in place until Wednesday. Carlin Clemente MD Ambrocio latif - 11/28/2008 6:19 PM PDT VASCULAR SURGERY INPATIENT PROGRESS NOTE Author: Ambrocio Crowder Interval Hx: nothing o/n. Pain controlled with no major concerns; she denies CP, SOB, N/V or sweats. Physical Exam: Last Vitals: BP 118/75 | Pulse 69 | Temp 37.1 C (98.8 F) | Resp 16 | Ht 1.435 m (4' 8.5 ") | Wt 75.6 kg (166 lb 10.7 oz) | SpO2 99% 24 Hour Vital Min/Max: Systolic (24hrs), Min:94 mmHg, Max:158 mmHg Diastolic (24hrs), Min:59 mmHg, Max:96 mmHg Pulse Min: 69 Max: 88 Temp Min: 36.8 C (98.2 F) Max: 37.4 C (99.3 F) Resp Min: 16 Max: 16 SpO2 Min: 96 % Max: 99 % Intake/Output Summary (Last 24 hours) at 11/28/08 1821 Last data filed at 11/28/08 1600 Gross per 24 hour Intake 895 ml Output 750 ml Net 145 ml CBGS: No Data Recorded PHYSICAL EXAM: Gen: Alert and Oriented to person, place and time Resp: CTAB, no r/r/w CV: RRR, no M/G/R Abdomen: soft, nontender, nondistended Skin: WWP, Nondiaphoretic Ext: Dressing C/D/I with no bleeding through. LABS: Lab Results Lab Test Name Results Date/Time NA 137 11/28/08 K 3.7 11/28/08 CL 108 11/28/08 BICARB 25 11/28/08 BUN 8 11/28/08 CR 0.73 11/28/08 GLU 168 11/28/08 CA 8.3 11/28/08 Lab Results Lab Test Name Results Date/Time WBC 13.6 11/28/08 RBC 2.59 11/28/08 HB 7.4 11/28/08 HCT 22.4 11/28/08 MCV 86.6 11/28/08 MCHC 33.1 11/28/08 RDW 17.5 11/28/08 PLT 711 11/28/08 NEUTROPERC 80 11/11/08 LYMPHPERC 8 11/11/08 MONOPERC 7 11/11/08 EOSPERC 4 11/11/08 BASOPERC 0 11/11/08 PROMYELPCT 0 11/11/08 ATYPICALPCT 0 11/11/08 NEUTROPHILCO 13.7 11/11/08 BANDSABS 0.2 11/11/08 MONOCYTECO 1.2 11/11/08 EOSCO 0.7 11/11/08 BASOPHILCO 0.0 11/11/08 NRBC 0 11/11/08 PLTC Normal 11/11/08 CBCCOMMENTS Final WBC Report. 11/24/08 Assessment and Plan: 53 y.o. 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 She is doing well with pain well controlled. Dalilarubinaangel Crowder [facility] [address] [facility] [id number] [facility] [address] Torres Raya MD - 11/28/2008 1:16 PM PDT CLINICAL HOSPITALIST SERVICE ([facility]S)-PROGRESS NOTE Glycemic team follow up: HOSPITAL DAY: 22 Author: TORRES العراقي MD Subjective: no nausea/vomiting Physical Exam: Vitals (Most recent): Blood pressure 158/82, pulse 76, temperature 36.8 C (98.2 F), res p. rate 16, height 1.435 m (4' 8.5"), weight 75.6 kg (166 lb 10.7 oz), SpO2 98%. Intake/Output Summary (Last 24 hours) at 11/28/08 1316 Last data filed at 11/28/08 0900 Gross per 24 hour Intake 675 ml Output 1900 ml Net -1225 ml General : aaox3 Cv: s1, s2 rrr Rsp: b/l nvbs Abd: soft, bs+ Studies: CBC with diff last 72 hours (or 3 results) Recent Labs Basename 11/28/08 0730 11/27/08 0716 11/26/08 0647 WBC 13.6* 11.2* 13.6* HB 7.4* 8.0* 7.8* HCT 22.4* 24.0* 23.7* PLT 711* 630* 787* NEUTROPERC -- -- -- BANDPCT -- -- -- LYMPHPERC -- -- -- MONOPERC -- -- -- BASOPERC -- -- -- EOSPERC -- -- -- Chemistries: Last 72 Hours (or 3 results): Recent Labs Basename 11/28/08 0730 11/27/08 0716 11/26/08 0647 NA 137 139 140 K 3.7 4.1 4.1 CL 108 107 107 BICARB 25 25 23 BUN 8 10 12 CR 0.73 0.60 0.70 GLU 168* 115* 163* CA 8.3* 8.7 8.7 MG 2.1 2.2 2.1 PO4 3.5 3.4 3.9 Lab Results Component Value Date GLU 168 11/28/08 GLU 115 11/27/08 GLU 163 11/26/08 Current Meds: acetaminophen (aka TYLENOL) tablet 650 mg, 650 mg, Oral, Q4H PRN bisacodyl (aka DULCOLAX) suppository 10 mg, 10 mg, Rectal, BID PRN bisacodyl EC (aka DULCOLAX) tablet 5 mg, 5 mg, Oral, DAILY PRN ceFAZolin (aka ANCEF) injection 1 g, 1 g, Intravenous, Q8H dextrose 5%-lactated ringers IV, , Intravenous, CONTINUOUS dextrose injection 25 mL, 12.5 g, Intravenous, Q15MIN PRN diphenhydrAMINE (aka BENADRYL) capsule 25 mg, 25 mg, Oral, Q8H PRN docusate sodium (aka COLACE) capsule 100 mg, 100 mg, Oral, BID PRN enoxaparin (aka LOVENOX) injection 80 mg, 80 mg, Subcutaneous, BID glucagon (aka GLUCAGEN) injection 1 mg, 1 mg, Subcutaneous, Q15MIN PRN glucose chewable tablet 15 g, 15 g, Oral, Q15MIN PRN heparin lock flush IV 50 Units, 50 Units, Intravenous, PRN HYDROmorphone (aka DILAUDID) injection 1-2 mg, 1-2 mg, Intravenous, Q4H PRN insulin aspart (aka NOVOLOG) injection 1-16 Units, 1-16 Units, Subcutaneous, AC and HS insulin aspart (aka NOVOLOG) injection 10 Units, 10 Units, Subcutaneous, TID AC insulin NPH (aka HUMULIN N,NOVOLIN N) injection 26 Units, 26 Units, Subcutaneous, Q12H lisinopril (aka PRINIVIL) tablet 5 mg, 5 mg, Oral, DAILY medroxyPROGESTERone (aka PROVERA) tablet 20 mg, 20 mg, Oral, DAILY metoprolol (aka LOPRESSOR) tablet 25 mg, 25 mg, Oral, BID naloxone (aka NARCAN) injection, , Intravenous, PRN ondansetron (aka ZOFRAN) injection 4 mg, 4 mg, Intravenous, Q12H PRN oxycodone immediate release (aka ROXICODONE) tablet 5-20 mg, 5-20 mg, Oral, Q3H PRN promethazine (aka PHENERGAN) injection 12.5 mg, 12.5 mg, Intravenous, Q6H PRN senna-docusate (aka SENOKOT S) 8.6-50 mg 1 Tab, 1 Tab, Oral, BID simethicone chew (aka MYLICON) tablet 80 mg, 80 mg, Oral, TID PRN simvastatin (aka ZOCOR) tablet 10 mg, 10 mg, Oral, QPM Assessment/Plan: Assessment/Plan: 53 yr old with newly diagnosed DM 2 Diet : Restrict caloric intake 1600 calories, 2g salt, low fat. CBG Result ($) Min: 83 Max: 232 LastCBG CBG Result ($): 130 (11/28/08 11:46 AM) CBG Intervention: Medication given (11/27/08 8:59 PM) Target glucose : Fasting <140 and Random <180 (Non-ICU patients) Home Rx : Nil Current Rx : NPH 26 units q12h and aspart 10 un ac with SSI IV fluids : Nil BMP : Noted Hypoglycemia : Nil Other pertinent factors : Newly diagnosed, infection left hand Recommendations: Continue NPH 26 units q12h for now, continue aspart 10 u tid and SSI. Needs a family member to learn injection of insulin as she is unable to use the left arm. Discussed with koby molina as patient is concerned about [facility] However the patient's Hba1c is 14 and is requiring 82 U of insuin per day total, so s he does need Insulin. 11/28: though sugar was 232 yesterday pm post surgery, will continue same dose of insulin fo r now given that it's better controlled now on the previous regimen and observe. Addendum: Patient with blood sugar of 69 this pm. Hold tonights aspart, and reduce NPH to 16 U q 12hr s and aspart 5 U tid ac from am. TORRES العراقي MD [address] Clinical Hospitalist Service [facility] DEPARTMENT: Hosp ([facility])- [phone] Place of Service: - [address] [facility] [phone] Modifiers:GC Resident Involved: No CPT: 64228 Subsequent Visit Exp Prob Foc/Mod Complexity 25 min Ulysses Black MD - 11/28/2008 7:35 AM PDT Orthopaedic Progress Note: Subjective: To OR yesterday Objective: Ht 143.5 cm (4' 8.5")( < 3 %ile), Wt 75.6 kg (166 lbs 10.7 oz)( < 3 %ile), BP 158/82, Pulse 76, Temperature 36.8 C (98.2 F), RR 16, SpO2 98%. Left upper extremity - Dressing: Clean/Dry/Intact. Incision: hand fasc site healing Motor: Deltoid Biceps Triceps Thumb Ext Digit Abd Shaft Headman - intact intact intact 0 intact - = Not examined Sensory: Intact to light touch dorsum and palm of hand Vascular: capillary refill < 1 second at amp tips Assesment/Plan: POD# 7 Status post L hand digit amp. OK to DC and follow up in clinic with from Ortho perspective Torres Raya MD - 11/27/2008 2:12 PM PDT CLINICAL HOSPITALIST SERVICE (CHS)-PROGRESS NOTE Glycemic team follow up: HOSPITAL DAY: 21 Author: TORRES العراقي MD Subjective: no sob Physical Exam: Vitals (Most recent): Blood pressure 153/91, pulse 69, temperature 36.9 C (98.4 F), res p. rate 16, height 1.435 m (4' 8.5"), weight 77.4 kg (170 lb 10.2 oz), SpO2 97%. Intake/Output Summary (Last 24 hours) at 11/27/08 1412 Last data filed at 11/27/08 1230 Gross per 24 hour Intake 1370 ml Output 2020 ml Net -650 ml General : Aaox3. CV: s1, s2 rrr Rsp: b/l NVBS Abd: soft, bs+ Studies: CBC with diff last 72 hours (or 3 results) Recent Labs Basename 11/27/0871511/26/0864611/25/08 06 WBC 11.2* 13.6* 14.6* HB 8.0* 7.8* 7.6* HCT 24.0* 23.7* 22.3* PLT 630* 787* 611* NEUTROPERC -- -- -- BANDPCT -- -- -- LYMPHPERC -- -- -- MONOPERC -- -- -- BASOPERC -- -- -- EOSPERC -- -- -- Chemistries: Last 72 Hours (or 3 results): Recent Labs Basename 11/27/0871511/26/0864611/25/08 0640 NA 139 140 139 K 4.1 4.1 3.9 CL 107 107 105 BICARB 25 23 26 BUN 10 12 10 CR 0.60 0.70 0.74 GLU 115* 163* 101* CA 8.7 8.7 8.4* MG 2.2 2.1 2.2 PO4 3.4 3.9 4.0 Lab Results Component Value Date GLU 115 11/27/08 GLU 163 11/26/08 GLU 101 11/25/08 Current Meds: acetaminophen (aka TYLENOL) tablet 650 mg, 650 mg, Oral, Q4H PRN bisacodyl (aka DULCOLAX) suppository 10 mg, 10 mg, Rectal, BID PRN bisacodyl EC (aka DULCOLAX) tablet 5 mg, 5 mg, Oral, DAILY PRN ceFAZolin (aka ANCEF) injection 1 g, 1 g, Intravenous, Q8H dextrose 5%-lactated ringers IV, , Intravenous, CONTINUOUS dextrose injection 25 mL, 12.5 g, Intravenous, Q15MIN PRN diphenhydrAMINE (aka BENADRYL) capsule 25 mg, 25 mg, Oral, Q8H PRN docusate sodium (aka COLACE) capsule 100 mg, 100 mg, Oral, BID PRN ephedrine injection 10 mg, 10 mg, Intravenous, POSTPROCEDURE PRN fentanyl (aka SUBLIMAZE) injection 25-200 mcg, 25-200 mcg, Intravenous, POSTPROCEDURE PRN glucagon (aka GLUCAGEN) injection 1 mg, 1 mg, Subcutaneous, Q15MIN PRN glucose chewable tablet 15 g, 15 g, Oral, Q15MIN PRN heparin lock flush IV 50 Units, 50 Units, Intravenous, PRN hydrALAZINE (aka APRESOLINE) injection 10 mg, 10 mg, Intravenous, POSTPROCEDURE PRN HYDROmorphone (aka DILAUDID) injection 0.2-2 mg, 0.2-2 mg, Intravenous, POSTPROCEDURE PRN HYDROmorphone (aka DILAUDID) injection 1-2 mg, 1-2 mg, Intravenous, Q4H PRN insulin aspart (aka NOVOLOG) injection 1-16 Units, 1-16 Units, Subcutaneous, AC and HS insulin aspart (aka NOVOLOG) injection 10 Units, 10 Units, Subcutaneous, TID AC insulin NPH (aka HUMULIN N,NOVOLIN N) injection 26 Units, 26 Units, Subcutaneous, Q12H labetalol (aka NORMODYNE,TRANDATE) injection 5 mg, 5 mg, Intravenous, POSTPROCEDURE PRN lactated ringers IV infusion, 500 mL, Intravenous, POSTPROCEDURE PRN lisinopril (aka PRINIVIL) tablet 5 mg, 5 mg, Oral, DAILY medroxyPROGESTERone (aka PROVERA) tablet 20 mg, 20 mg, Oral, DAILY metoprolol (aka LOPRESSOR) tablet 25 mg, 25 mg, Oral, BID naloxone (aka NARCAN) injection, , Intravenous, POSTPROCEDURE PRN naloxone (aka NARCAN) injection, , Intravenous, PRN ondansetron (aka ZOFRAN) injection 4 mg, 4 mg, Intravenous, POSTPROCEDURE PRN ondansetron (aka ZOFRAN) injection 4 mg, 4 mg, Intravenous, Q12H PRN oxycodone immediate release (aka ROXICODONE) tablet 5-20 mg, 5-20 mg, Oral, Q3H PRN phenylephrine 100 mcg/mL injection (OR syringe) , 50 mcg, Intravenous, POSTPROCEDURE PRN promethazine (aka PHENERGAN) injection 12.5 mg, 12.5 mg, Intravenous, Q6H PRN senna-docusate (aka SENOKOT S) 8.6-50 mg 1 Tab, 1 Tab, Oral, BID simethicone chew (aka MYLICON) tablet 80 mg, 80 mg, Oral, TID PRN simvastatin (aka ZOCOR) tablet 10 mg, 10 mg, Oral, QPM Labs: HEMOGLOBIN A1C (%) Date Value 11/06/08 14.0* MICROALBUMIN/CREAT RATIO (mg/g) Date Value 11/07/08 42* Assessment/Plan: 53 yr old with newly diagnosed DM 2 Diet : Restrict caloric intake 1600 calories, 2g salt, low fat. CBG Result ($) Min: 129 Max: 237 LastCBG CBG Result ($): 129 (11/27/08 1:10 PM) CBG Intervention: Medication given (11/26/08 9:36 PM) Target glucose : Fasting <140 and Random <180 (Non-ICU patients) Home Rx : Nil Current Rx : NPH 26 units q12h and aspart 10 un ac with SSI IV fluids : Nil BMP : Noted Hypoglycemia : Nil Other pertinent factors : Newly diagnosed, infection left hand Recommendations: Continue NPH 26 units q12h for now, continue aspart 10 u tid and SSI. Needs a family member to learn injection of insulin as she is unable to use the left arm. Discussed with koby molina as patient is concerned about not being able to afford the in sulin. However the patient's Hba1c is 14 and is requiring 82 U of insuin per day total, so she does need Insulin. TORRES العراقي MD [facility] 6A Clinical Hospitalist Service [facility] DEPARTMENT: Hosp ([facility])- [phone] Place of Service: [facility] [id number] [facility] [phone] CPT: 98789 Subsequent Visit Prob Focused/Low Complexity 15 min Total time spent on this encounter: 20 Ulysses Black MD - 11/27/2008 1:16 PM PDT Orthopaedic Progress Note: Subjective: Pain controlled in left arm/hand Objective: Ht 143.5 cm (4' 8.5")( < 3 %ile), Wt 77.4 kg (170 lbs 10.2 oz)( < 3 %ile), BP 163/81, Pulse 76, Temperature 37 C (98.6 F), RR 16, SpO2 97%. 24 hour Vitals min/max :Temp Min: 36.2 C (97.2 F) Max: 37.4 C (99.3 F) Left upper extremity - Dressing: Clean/Dry/Intact. Incision: healing Motor: Deltoid Biceps Triceps Thumb Ext Digit Abd Shaft Headman - intact intact intact 0 intact - = Not examined Sensory: Intact to light touch dorsum and palm of hand Vascular: Palpable radial pulse, capillary refill < 1 second Assesment/Plan: POD# 6 Status post L hand digit amp. To OR for STSG. OK to DC and follow up in clinic from Ortho perspective. Misbah Wheat MD - 11/27/2008 12:05 PM PDTINPATIENT BRIEF OPERATIVE NOTE Procedure Date: Author: MISBAH QUIJANO MD Attending Physician:Susannah Assistants: Jones Prior to the beginning of the procedure the team paused to verify the patient's identity, a s well as the procedure to be performed and the correct side/site. All equipment required w as ready and available. The patient was positioned appropriately. Preoperative Diagnosis: open fasciotomy wound left forearm Postoperative Diagnosis: same Procedure Performed: STSG to left arm fasciotomy wound Estimated Blood Loss: minimal Fluids: 500 Specimens: none Complications: none known Drains: none Disposition: PACU Findings: clean, granulating wound ideal for grafting MISBAH QUIJANO MD Carlin Sorenson MD - 11/27/2008 11:21 AM PDT VASCULAR SURGERY INPATIENT PROGRESS NOTE Hospital Day: Author; CARLIN CLEMENTE MD Attending Physician: Roc Rae MD Interval Hx: Nothing o/n Physical Exam: Last Vitals: BP 133/76 | Pulse 72 | Temp 37.4 C (99.3 F) | Resp 18 | Wt 77.4 kg (170 lb 10.2 oz) | SpO2 97% O2 Delivery Device: None (room air) (11/27/08 9:47 AM) 24 Hour Vital Min/Max: Systolic (24hrs), Min:121 mmHg, Max:149 mmHg Diastolic (24hrs), Min:65 mmHg, Max:81 mmHg Pulse Min: 72 Max: 86 Temp Min: 36.2 C (97.2 F) Max: 37.4 C (99.3 F) Resp Min: 16 Max: 18 SpO2 Min: 96 % Max: 100 % Intake/Output Summary (Last 24 hours) at 11/27/08 1121 Last data filed at 11/27/08 0748 Gross per 24 hour Intake 570 ml Output 2650 ml Net -2080 ml Physical Exam: General: AOX3, NAD Respiratory: CTA-B Cardiovascular: RRR, no MGR Abdomen: Soft, nontender, nondistended. Skin: wwp, non-diaphoretic Extremities: Dressings CDI without bleedthrough. Chemistries: Last 72 Hours (or 3 results): Recent Labs Basename 11/27/08 0716 11/26/08 0647 11/25/08 0640 NA 139 140 139 K 4.1 4.1 3.9 CL 107 107 105 BICARB 25 23 26 BUN 10 12 10 CR 0.60 0.70 0.74 CA 8.7 8.7 8.4* MG 2.2 2.1 2.2 PO4 3.4 3.9 4.0 CBC with diff last 72 hours (or 3 results) Recent Labs Basename 11/27/08 0716 11/26/08 0647 11/25/08 0640 WBC 11.2* 13.6* 14.6* HB 8.0* 7.8* 7.6* HCT 24.0* 23.7* 22.3* PLT 630* 787* 611* NEUTROPERC -- -- -- BANDPCT -- -- -- LYMPHPERC -- -- -- MONOPERC -- -- -- BASOPERC -- -- -- EOSPERC -- -- -- Assessment and Plan: 53 yo female s/p thrombectomy of brachial, radial and ulnar arteries x 2, extensor and flexor forearm fasciotomies and palmar hand fasciotomies, now s/p mutiple fi nger amputation to left hand, and POD 4 s/p vaginal myomectomy for submucosal uterine leiomy lexi with prolapse. Doing well. OR today for STSG for coverage of forearm wound. CARLIN CLEMENTE MD Carlin Sorenson MD - 11/26/2008 11:22 PM PDT VASCULAR SURGERY INPATIENT PROGRESS NOTE Hospital Day:20 Author; CARLIN CLEMENTE MD Attending Physician: Roc Rae MD Interval Hx: nothing o/n Physical Exam: Last Vitals: BP 149/75 | Pulse 86 | Temp 37.2 C (99 F) | Resp 16 | Wt 77.4 kg (170 lb 1 0.2 oz) | SpO2 96% O2 Delivery Device: None (room air) (11/26/08 7:53 PM) 24 Hour Vital Min/Max: Systolic (24hrs), Min:94 mmHg, Max:149 mmHg Diastolic (24hrs), Min:63 mmHg, Max:94 mmHg Pulse Min: 72 Max: 86 Temp Min: 36.4 C (97.5 F) Max: 37.2 C (99 F) Resp Min: 16 Max: 18 SpO2 Min: 96 % Max: 100 % Intake/Output Summary (Last 24 hours) at 11/26/08 2323 Last data filed at 11/26/08 2200 Gross per 24 hour Intake 689 ml Output 3400 ml Net -2711 ml Physical Exam: General: AOX3, NAD Respiratory: CTA-B Cardiovascular: RRR, no MGR Abdomen: Soft, nontender, nondistended. Skin: wwp, non-diaphoretic Extremities: R forearm wound with good granulation bed, finger amputation sites healing star ropriately. Chemistries: Last 72 Hours (or 3 results): Recent Labs Basename 11/26/08 0647 11/25/0840 11/24/08 07 NA 140 139 139 K 4.1 3.9 3.7 CL 107 105 104 BICARB 23 26 29 BUN 12 10 7 CR 0.70 0.74 0.64 CA 8.7 8.4* 8.3* MG 2.1 2.2 2.2 PO4 3.9 4.0 3.0 CBC with diff last 72 hours (or 3 results) Recent Labs Basename 11/26/08 0647 11/25/08 0640 11/24/08 0705 WBC 13.6* 14.6* 20.3* HB 7.8* 7.6* 7.6* HCT 23.7* 22.3* 22.9* PLT 787* 611* 745* NEUTROPERC -- -- -- BANDPCT -- -- -- LYMPHPERC -- -- -- MONOPERC -- -- -- BASOPERC -- -- -- EOSPERC -- -- -- Assessment and Plan: 53 yo female s/p thrombectomy of brachial, radial and ulnar arteries x 2, extensor and flexor forearm fasciotomies and palmar hand fasciotomies, now s/p mutiple fi nger amputation to left hand, and POD 3 s/p vaginal myomectomy for submucosal uterine leiomy lexi with prolapse. Doing well. Carlito pillow at bedside, pt using for elevation. Cont daily dressing changes. STSG tomorrow for coverage of forearm wound. CARLIN CLEMENTE MD Chely, Priti Yoon MD - 11/26/2008 7:35 AM PDT CLINICAL HOSPITALIST SERVICE ([facility])-PROGRESS NOTE Glycemic team follow up: HOSPITAL DAY: 20 Author: PRITI FONSECA MD Subjective: Eating well, no nausea or vomiting. Physical Exam: Vitals (Most recent): Blood pressure 130/88, pulse 83, temperature 36.8 C (98.2 F), res p. rate 16, weight 78.7 kg (173 lb 8 oz), SpO2 97%. Intake/Output Summary (Last 24 hours) at 11/26/08 0735 Last data filed at 11/26/08 0600 Gross per 24 hour Intake 1526 ml Output 1950 ml Net -424 ml General : Obese Studies: CBC with diff last 72 hours (or 3 results) Recent Labs Basename 11/26/08 0647 11/25/08 0640 11/24/08 0705 WBC 13.6* 14.6* 20.3* HB 7.8* 7.6* 7.6* HCT 23.7* 22.3* 22.9* PLT 787* 611* 745* NEUTROPERC -- -- -- BANDPCT -- -- -- LYMPHPERC -- -- -- MONOPERC -- -- -- BASOPERC -- -- -- EOSPERC -- -- -- Chemistries: Last 72 Hours (or 3 results): Recent Labs Basename 11/25/08 0640 11/24/08 0705 NA 139 139 K 3.9 3.7 CL 105 104 BICARB 26 29 BUN 10 7 CR 0.74 0.64 GLU 101* 106* CA 8.4* 8.3* MG 2.2 2.2 PO4 4.0 3.0 Lab Results Component Value Date GLU 101 11/25/08 GLU 106 11/24/08 GLU 161 11/23/08 Current Meds: acetaminophen (aka TYLENOL) tablet 650 mg, 650 mg, Oral, Q4H PRN aspirin EC tablet 325 mg, 325 mg, Oral, DAILY bisacodyl (aka DULCOLAX) suppository 10 mg, 10 mg, Rectal, BID PRN bisacodyl EC (aka DULCOLAX) tablet 5 mg, 5 mg, Oral, DAILY PRN ceFAZolin (aka ANCEF) injection 1 g, 1 g, Intravenous, Q8H dextrose 5%-lactated ringers IV, , Intravenous, CONTINUOUS dextrose injection 25 mL, 12.5 g, Intravenous, Q15MIN PRN diphenhydrAMINE (aka BENADRYL) capsule 25 mg, 25 mg, Oral, Q8H PRN docusate sodium (aka COLACE) capsule 100 mg, 100 mg, Oral, BID PRN enoxaparin (aka LOVENOX) injection 80 mg, 80 mg, Subcutaneous, BID glucagon (aka GLUCAGEN) injection 1 mg, 1 mg, Subcutaneous, Q15MIN PRN glucose chewable tablet 15 g, 15 g, Oral, Q15MIN PRN heparin lock flush IV 50 Units, 50 Units, Intravenous, PRN HYDROmorphone (aka DILAUDID) injection 1-2 mg, 1-2 mg, Intravenous, Q4H PRN insulin aspart (aka NOVOLOG) injection 1-16 Units, 1-16 Units, Subcutaneous, AC and HS insulin aspart (aka NOVOLOG) injection 10 Units, 10 Units, Subcutaneous, TID AC insulin NPH (aka HUMULIN N,NOVOLIN N) injection 26 Units, 26 Units, Subcutaneous, Q12H lisinopril (aka PRINIVIL) tablet 5 mg, 5 mg, Oral, DAILY medroxyPROGESTERone (aka PROVERA) tablet 20 mg, 20 mg, Oral, DAILY metoprolol (aka LOPRESSOR) tablet 25 mg, 25 mg, Oral, BID naloxone (aka NARCAN) injection, , Intravenous, PRN ondansetron (aka ZOFRAN) injection 4 mg, 4 mg, Intravenous, Q12H PRN oxycodone immediate release (aka ROXICODONE) tablet 5-20 mg, 5-20 mg, Oral, Q3H PRN promethazine (aka PHENERGAN) injection 12.5 mg, 12.5 mg, Intravenous, Q6H PRN senna-docusate (aka SENOKOT S) 8.6-50 mg 1 Tab, 1 Tab, Oral, BID simethicone chew (aka MYLICON) tablet 80 mg, 80 mg, Oral, TID PRN simvastatin (aka ZOCOR) tablet 10 mg, 10 mg, Oral, QPM Assessment/Plan: 53 yr old with newly diagnosed DM 2 Diet : Restrict caloric intake 1600 calories, 2g salt, low fat. CBGs (24h) :CBG Result Min: 97 Max: 181 LastCBG CBG Result ($): 97 (11/26/08 11:49 AM) CBG Intervention: Medication given (11/24/08 9:07 PM) Target glucose : Fasting <140 and Random <180 (Non-ICU patients) Home Rx : Nil Current Rx : NPH 26 units q12h and aspartate 10 un ac with SSI IV fluids : Nil BMP : Noted Hypoglycemia : Nil Other pertinent factors : Newly diagnosed, infection left hand Recommendations: Continue NPH 26 units q12h and will titrate further as needed, continue a spartate 10 u tid and SSI. Would give 20 units of NPH in the AM even though she will be NPO for the procedure, hold prandial AM dose of insulin, recommend insulin gtt post-op if cbg's > 250. Recs communicated to Yvette Paula MD vascular surgery resident. Needs a family member to learn injection of insulin as she is unable to use the left arm. PRITI FONSECA MD [address] Clinical Hospitalist Service [facility] DEPARTMENT: Hosp ([facility])- [phone] Place of Service: IP - [phone] [facility] [phone] CPT: 65180 Subsequent Visit Prob Focused/Low Complexity 15 min Total time spent on this encounter: 15' Yvette Lieberamn Md - 11/25/2008 11:36 AM PDT VASCULAR SURGERY INPATIENT PROGRESS NOTE: Author; YVETTE PAULA MD Attending Physician: Roc Rae MD 24 hour events: No acute events overnight. Complains of continued pain to the left arm. Objective: Last Vitals: BP 104/65 | Pulse 75 | Temp 36.8 C (98.2 F) | Resp 14 | Wt 78.7 kg (173 lb 8 oz) | SpO2 95% 24 Hour Vital Min/Max: Systolic (24hrs), Min:104 mmHg, Max:131 mmHg Diastolic (24hrs), Min:65 mmHg, Max:78 mmHg Pulse Min: 66 Max: 86 Temp Min: 35.8 C (96.4 F) Max: 36.8 C (98.2 F) Resp Min: 14 Max: 16 SpO2 Min: 95 % Max: 100 % I/O: Intake/Output Summary (Last 24 hours) at 11/25/08 1136 Last data filed at 11/25/08 1000 Gross per 24 hour Intake 490 ml Output 750 ml Net -260 ml Physical Exam: General: AOX3, NAD Respiratory: CTA-B Cardiovascular: RRR, no MGR Abdomen: Soft, nontender, nondistended Vascular: left upper extremity forearm wound is clean, dry, and well granulated. Still wit h muscle bulging and Labs: Chemistries: Last 72 Hours (or 3 results): Recent Labs Basename 11/25/08 0640 11/24/08 0705 11/23/08 0600 NA 139 139 140 K 3.9 3.7 4.3 CL 105 104 106 BICARB 26 29 30 BUN 10 7 7 CR 0.74 0.64 0.80 CA 8.4* 8.3* 8.5* MG 2.2 2.2 2.3 PO4 4.0 3.0 4.2 CBC with diff last 72 hours (or 3 results) Recent Labs Basename 11/25/0840 11/24/08 0705 11/23/08 0600 WBC 14.6* 20.3* 13.5* HB 7.6* 7.6* 7.8* HCT 22.3* 22.9* 23.9* PLT 611* 745* 713* NEUTROPERC -- -- -- BANDPCT -- -- -- LYMPHPERC -- -- -- MONOPERC -- -- -- BASOPERC -- -- -- EOSPERC -- -- -- Assessment and Plan: 53 yo female s/p thrombectomy of brachial, radial and ulnar arteries x2, extensor and flexo r forearm fasciotomies and palmar hand fasciotomies, now s/p mutiple finger amputation to le ft hand, and POD 1 s/p vaginal myomectomy for submucosal uterine leiomyoma with prolapse. Carlito pillow at bedside, pt using for elevation. Appreciate glycemic control team assistance, will cont with NPH 22 q 12h, aspart 10 TID, IS S. Cont daily dressing changes. Will plan for STSG on Wednesday for coverage of forearm wound. Priti Mo MD - 11/25/2008 8:08 AM Sara morales of this note might be different from the original. CLINICAL HOSPITALIST SERVICE ([facility])-PROGRESS NOTE Glycemic team follow up: HOSPITAL DAY: 19 Author: PRITI FONSECA MD Subjective: eating well, no nausea or vomiting. Physical Exam: Vitals (Most recent): Blood pressure 104/65, pulse 75, temperature 36.8 C (98.2 F), res p. rate 14, weight 78.7 kg (173 lb 8 oz), SpO2 95%. Intake/Output Summary (Last 24 hours) at 11/25/08 0808 Last data filed at 11/25/08 0507 Gross per 24 hour Intake 430 ml Output 950 ml Net -520 ml General : Ambulatory. Studies: Lab Results Component Value Date NA 139 11/25/08 K 3.9 11/25/08 CL 105 11/25/08 BICARB 26 11/25/08 BUN 10 11/25/08 CR 0.74 11/25/08 GLU 101 11/25/08 CA 8.4 11/25/08 Lab Results Component Value Date GLU 101 11/25/08 GLU 106 11/24/08 GLU 161 11/23/08 Current Meds: acetaminophen (aka TYLENOL) tablet 650 mg, 650 mg, Oral, Q4H PRN aspirin EC tablet 325 mg, 325 mg, Oral, DAILY bisacodyl (aka DULCOLAX) suppository 10 mg, 10 mg, Rectal, BID PRN bisacodyl EC (aka DULCOLAX) tablet 5 mg, 5 mg, Oral, DAILY PRN ceFAZolin (aka ANCEF) injection 1 g, 1 g, Intravenous, Q8H dextrose 5%-lactated ringers IV, , Intravenous, CONTINUOUS dextrose injection 25 mL, 12.5 g, Intravenous, Q15MIN PRN diphenhydrAMINE (aka BENADRYL) capsule 25 mg, 25 mg, Oral, Q8H PRN docusate sodium (aka COLACE) capsule 100 mg, 100 mg, Oral, BID PRN enoxaparin (aka LOVENOX) injection 80 mg, 80 mg, Subcutaneous, BID glucagon (aka GLUCAGEN) injection 1 mg, 1 mg, Subcutaneous, Q15MIN PRN glucose chewable tablet 15 g, 15 g, Oral, Q15MIN PRN heparin lock flush IV 50 Units, 50 Units, Intravenous, PRN HYDROmorphone (aka DILAUDID) injection 1-2 mg, 1-2 mg, Intravenous, Q4H PRN insulin aspart (aka NOVOLOG) injection 1-16 Units, 1-16 Units, Subcutaneous, AC and HS insulin aspart (aka NOVOLOG) injection 10 Units, 10 Units, Subcutaneous, TID AC insulin NPH (aka HUMULIN N,NOVOLIN N) injection 26 Units, 26 Units, Subcutaneous, Q12H lisinopril (aka PRINIVIL) tablet 5 mg, 5 mg, Oral, DAILY medroxyPROGESTERone (aka PROVERA) tablet 20 mg, 20 mg, Oral, DAILY metoprolol (aka LOPRESSOR) tablet 25 mg, 25 mg, Oral, BID naloxone (aka NARCAN) injection, , Intravenous, PRN ondansetron (aka ZOFRAN) injection 4 mg, 4 mg, Intravenous, Q12H PRN oxycodone immediate release (aka ROXICODONE) tablet 5-20 mg, 5-20 mg, Oral, Q3H PRN promethazine (aka PHENERGAN) injection 12.5 mg, 12.5 mg, Intravenous, Q6H PRN senna-docusate (aka SENOKOT S) 8.6-50 mg 1 Tab, 1 Tab, Oral, BID simethicone chew (aka MYLICON) tablet 80 mg, 80 mg, Oral, TID PRN simvastatin (aka ZOCOR) tablet 10 mg, 10 mg, Oral, QPM Assessment/Plan: 53 year old woman with newly diagnosed Diabetes mellitus type 2 Diet : Diabetic CBGs (24h) : CBG Result Min: 119 Max: 216 LastCBG CBG Result ($): 133 (11/25/08 7:52 AM) CBG Intervention: Medication given (11/24/08 9:07 PM) Target glucose : Fasting <140 and Random <180 (Non-ICU patients) Home Rx : Nil. Current Rx : NPH 22 units q12h and prandial insulin 10 un tid, SSI IV fluids : D5 LR BMP : Noted Hypoglycemia : Nil. Other pertinent factors : Infection under control. Recommendations: Incr NPH to 26 un q12h. Would d/c IVF for now. Further surgery is planned. Her sister or room- mate can help her with her shots as she mary l probably not be able to use her left arm for a while. Further surgery is planned on 11/27/08 for which she will be NPO again. PRITI FONSECA MD [facility] 11[facility] Clinical Hospitalist Service [facility] DEPARTMENT: Hosp ([facility])- [phone] Place of Service: IP - [phone] [facility] [phone] CPT: 38629 Subsequent Visit Prob Focused/Low Complexity 15 min Total time spent on this encounter: 15' Xiomara Browne Md - 11/25/2008 8:00 AM PDT Ortho Progress Note 11/25/2008 Hospital Day #19 POD # 4 s/p left hand amputations (index, long, ring, and small fingers), I&D of palmar wou nd. S: No events, pt comfortable today O: Last Vitals: BP 104/65 | Pulse 75 | Temp 36.8 C (98.2 F) | Resp 14 | Wt 78.7 kg (17 3 lb 8 oz) | SpO2 95% 24 hour Vitals min/max : Temp Min: 35.8 C (96.4 F) Max: 36.8 C (98.2 F) Systolic (24hrs), Min:104 mmHg, Max:131 mmHg Diastolic (24hrs), Min:65 mmHg, Max:78 mmHg Pulse Min: 66 Max: 86 SpO2 Min: 95 % Max: 100 % Exam: LUE dressings changed. Good cap refill in all fingers. Small finger with distal dried blo od vs. necrotic skin at distal tip; warm and pink otherwise. Sutures in good position, no d rainage. HEMATOCRIT Date Value Range Status 11/25/08 22.3* 36.0-46.0 (%) Final 11/24/08 22.9* 36.0-46.0 (%) Final A/P: POD #4 s/p left hand amputations. Doing well. Defer to primary team (upper extremity ) for dressing change schedule. Likely no further operative intervention planned. Will con tinue to follow closely. Naa Lobato MD - 11/24/2008 11:43 AM PDT INPATIENT USABILITY ARCHITECT FOLLOW-UP NOTE Hospital Day:18 Author; XI GILMAN MD Attending Physician: Naa Ariza MD Interval Hx: No acute events overnight. Scant spotting on pad. Pain controlled Physical Exam: Last Vitals: BP 104/68 | Pulse 66 | Temp 35.8 C (96.4 F) | Resp 16 | Wt 85.3 kg (188 lb 0.8 oz) | SpO2 99% O2 Delivery Device: None (room air) (11/24/08 11:38 AM) 24 Hour Vital Min/Max: Systolic (24hrs), Min:94 mmHg, Max:146 mmHg Diastolic (24hrs), Min:64 mmHg, Max:94 mmHg Pulse Min: 66 Max: 93 Temp Min: 35.8 C (96.4 F) Max: 37.3 C (99.1 F) Resp Min: 14 Max: 18 SpO2 Min: 98 % Max: 100 % Intake/Output Summary (Last 24 hours) at 11/24/08 1143 Last data filed at 11/24/08 0900 Gross per 24 hour Intake 1820 ml Output 2450 ml Net -630 ml General Appearance: NAD, awake and alert Abdomen: soft, NT, ND : scant spotting Labs CBC with diff last 72 hours (or 3 results) Recent Labs Basename 11/24/08 0705 11/23/08 0600 11/22/08 0430 WBC 20.3* 13.5* 20.2* HB 7.6* 7.8* 8.2* HCT 22.9* 23.9* 24.6* PLT 745* 713* 631* NEUTROPERC -- -- -- BANDPCT -- -- -- LYMPHPERC -- -- -- MONOPERC -- -- -- BASOPERC -- -- -- EOSPERC -- -- -- Assessment and Plan: 53yo s/p admission 11/06 for L forearm arterial occulsion after a horsebit. S/p flexor a nd extension compartment fasciotomies and embolectomies 11/08, digit amputations by orthro on 11/21. Now POD #1 s/p vaginal myomectomy for 10 cm fibroid. EBL 120 cc. Scant VB now. Hct stable. Anticoagulation resumed. - Hct stable post-op 24>23 - will f/u final path - continue provera 20 mg daily for now - f/u with gynecology as an outpatient for assisted management, will plan to taper off pro vera as an outpt. If this higher-dose provera were stopped acutely, would likely precipitate vaginal withdrawal bleed. - will sign off for now, please call for any questions or concerns, or for vaginal bleeding soaking 1 pad/hr. - Patient may call #[phone] to schedule an appointment in the resident drum builder clinic at 2 -4 weeks after her hospital discharge. I saw and examined the patient, I reviewed the resident's note and I AGREE with the assessm ent and plan. Naa Ariza MD Yvette Lieberman Md - 11:19 AM PDT VASCULAR SURGERY INPATIENT PROGRESS NOTE: Author; YVETTE PAULA MD Attending Physician: Roc Rae MD 24 hour events: No acute events overnight. Has been having a hard time sleeping due to dif ficulty holding arm upright. Objective: Last Vitals: BP 108/64 | Pulse 80 | Temp 36.9 C (98.4 F) | Resp 16 | Wt 85.3 kg (188 lb 0.8 oz) | SpO2 100% 24 Hour Vital Min/Max: Systolic (24hrs), Min:94 mmHg, Max:146 mmHg Diastolic (24hrs), Min:64 mmHg, Max:94 mmHg Pulse Min: 80 Max: 93 Temp Min: 36.2 C (97.2 F) Max: 37.3 C (99.1 F) Resp Min: 14 Max: 18 SpO2 Min: 98 % Max: 100 % I/O: Intake/Output Summary (Last 24 hours) at 11/24/08 1119 Last data filed at 11/24/08 0900 Gross per 24 hour Intake 1820 ml Output 2450 ml Net -630 ml Physical Exam: General: AOX3, NAD Respiratory: CTA-B Cardiovascular: RRR, no MGR Abdomen: Soft, nontender, nondistended Vascular: Left upper extremity wound is well granulated and without evidence of necrosis or purulent drainage. Labs: Chemistries: Last 72 Hours (or 3 results): Recent Labs Basename 11/24/08 0705 11/23/0859911/22/08429 NA 139 140 138 K 3.7 4.3 4.2 CL 104 106 105 BICARB 29 30 28 BUN 7 7 6 CR 0.64 0.80 0.65 CA 8.3* 8.5* 8.5* MG 2.2 2.3 2.2 PO4 3.0 4.2 4.3 CBC with diff last 72 hours (or 3 results) Recent Labs Basename 11/24/08 0705 11/23/0859911/22/08 0430 WBC 20.3* 13.5* 20.2* HB 7.6* 7.8* 8.2* HCT 22.9* 23.9* 24.6* PLT 745* 713* 631* NEUTROPERC -- -- -- BANDPCT -- -- -- LYMPHPERC -- -- -- MONOPERC -- -- -- BASOPERC -- -- -- EOSPERC -- -- -- Assessment and Plan: 53 yo female s/p thrombectomy of brachial, radial and ulnar arteries x2, extensor and flexo r forearm fasciotomies and palmar hand fasciotomies, now s/p mutiple finger amputation to le ft hand, and POD 1 s/p vaginal myomectomy for submucosal uterine leiomyoma with prolapse. Will provide carlito pillow for left hand Appreciate glycemic control team assistance, will cont with NPH 22 q 12h, aspart 10 TID, IS S. Will follow up ortho/hand recs Appreciate drum builder recs, will call for further significant vaginal bleeding. Will plan for STSG on Wednesday for coverage of forearm wound. Chely, Priti Yoon MD - 11/24/2008 8:11 AM PDT CLINICAL HOSPITALIST SERVICE ([facility])-PROGRESS NOTE Glycemic team follow up: HOSPITAL DAY: 18 Author: PRITI FONSECA MD Subjective: No nausea or vomiting, eating a regular diet. Physical Exam: Vitals (Most recent): Blood pressure 108/64, pulse 80, temperature 36.9 C (98.4 F), resp. rate 16, weight 85.3 kg (188 lb 0.8 oz), SpO2 100%. Intake/Output Summary (Last 24 hours) at 11/24/08 0812 Last data filed at 11/24/08 0500 Gross per 24 hour Intake 2795 ml Output 2470 ml Net 325 ml General : Apears well, ambulating, left arm in a cast. Studies:Chemistries: Last 72 Hours (or 3 results): Recent Labs Basename 11/23/08 0600 11/22/08 0430 NA 140 138 K 4.3 4.2 CL 106 105 BICARB 30 28 BUN 7 6 CR 0.80 0.65 GLU 161* 152* CA 8.5* 8.5* MG 2.3 2.2 PO4 4.2 4.3 CBC with diff last 72 hours (or 3 results) Recent Labs Basename 11/24/08 0705 11/23/08 0600 11/22/08 0430 WBC -- 13.5* 20.2* HB 7.6* 7.8* 8.2* HCT 22.9* 23.9* 24.6* PLT 745* 713* 631* Lab Results Component Value Date GLU 161 11/23/08 GLU 152 11/22/08 GLU 132 11/21/08 Current Meds: acetaminophen (aka TYLENOL) tablet 650 mg, 650 mg, Oral, Q4H PRN aspirin EC tablet 325 mg, 325 mg, Oral, DAILY bisacodyl (aka DULCOLAX) suppository 10 mg, 10 mg, Rectal, BID PRN bisacodyl EC (aka DULCOLAX) tablet 5 mg, 5 mg, Oral, DAILY PRN ceFAZolin (aka ANCEF) injection 1 g, 1 g, Intravenous, Q8H dextrose 5%-lactated ringers IV, , Intravenous, CONTINUOUS dextrose injection 25 mL, 12.5 g, Intravenous, Q15MIN PRN diphenhydrAMINE (aka BENADRYL) capsule 25 mg, 25 mg, Oral, Q8H PRN docusate sodium (aka COLACE) capsule 100 mg, 100 mg, Oral, BID PRN enoxaparin (aka LOVENOX) injection 80 mg, 80 mg, Subcutaneous, BID glucagon (aka GLUCAGEN) injection 1 mg, 1 mg, Subcutaneous, Q15MIN PRN glucose chewable tablet 15 g, 15 g, Oral, Q15MIN PRN heparin lock flush IV 50 Units, 50 Units, Intravenous, PRN HYDROmorphone (aka DILAUDID) injection 1-2 mg, 1-2 mg, Intravenous, Q4H PRN insulin aspart (aka NOVOLOG) injection 1-16 Units, 1-16 Units, Subcutaneous, AC and HS insulin aspart (aka NOVOLOG) injection 10 Units, 10 Units, Subcutaneous, TID AC insulin NPH (aka HUMULIN N,NOVOLIN N) injection 22 Units, 22 Units, Subcutaneous, Q12H lisinopril (aka PRINIVIL) tablet 5 mg, 5 mg, Oral, DAILY medroxyPROGESTERone (aka PROVERA) tablet 20 mg, 20 mg, Oral, DAILY metoprolol (aka LOPRESSOR) tablet 25 mg, 25 mg, Oral, BID naloxone (aka NARCAN) injection, , Intravenous, PRN ondansetron (aka ZOFRAN) injection 4 mg, 4 mg, Intravenous, Q12H PRN oxycodone immediate release (aka ROXICODONE) tablet 5-20 mg, 5-20 mg, Oral, Q3H PRN promethazine (aka PHENERGAN) injection 12.5 mg, 12.5 mg, Intravenous, Q6H PRN senna-docusate (aka SENOKOT S) 8.6-50 mg 1 Tab, 1 Tab, Oral, BID simethicone chew (aka MYLICON) tablet 80 mg, 80 mg, Oral, TID PRN simvastatin (aka ZOCOR) tablet 10 mg, 10 mg, Oral, QPM Assessment/Plan: 53 yr old with newly diagnosed DM 2 Diet : Restrict caloric intake 1600 calories, 2g salt, low fat. CBGs (24h) : CBG Result Min: 106 Max: 399 LastCBG CBG Result ($): 106 (11/24/08 7:00 AM) CBG Intervention: Medication given (11/24/08 1:32 AM) 24 hour requirement 45 NPH since 7 PM and 42 of aspartate - missed NPH 11/23 AM. CBG's bett er today Target glucose : Fasting <140 and Random <180 (Non-ICU patients) Home Rx : Nil Current Rx : NPH 22 units q12h and aspartate 10 un ac with SSI IV fluids : Nil BMP : Noted Hypoglycemia : Nil Other pertinent factors : Newly diagnosed, infection left hand Recommendations: Watch cbg q2h, NPH 22 units q12h and will titrate further as needed, cornel nue aspartate 10 u tid continue SSI, dietary changes. Needs a family member to learn injecti on of insulin as she is unable to use the left arm. RN instructed.hui FONSECA MD [place] [id number] Clinical Hospitalist Service [facility] EPIC DEPARTMENT: Hosp ([facility])- [phone] Place of Service: [phone] [facility] [phone] CPT: 38433 Subsequent Visit Prob Focused/Low Complexity 15 min Total time spent on this encounter: 20' Xiomara Browne Md - 11/24/2008 7:36 AM PDT Ortho Progress Note 11/24/2008 Hospital Day #18 S: No events, pt reports no changes in L hand. Underwent drum builder surgery yesterday. O: Last Vitals: BP 108/64 | Pulse 80 | Temp 36.9 C (98.4 F) | Resp 16 | Wt 85.3 kg (18 8 lb 0.8 oz) | SpO2 100% 24 hour Vitals min/max : Temp Min: 36.2 C (97.2 F) Max: 37.3 C (99.1 F) Systolic (24hrs), Min:94 mmHg, Max:170 mmHg Diastolic (24hrs), Min:64 mmHg, Max:97 mmHg Pulse Min: 74 Max: 94 SpO2 Min: 98 % Max: 100 % Exam: LUE in soft dressing. Pt was seen in am, declined dressing change, saying "my other doctor will be changing it soon." L thumb exposed: necrotic distal tip dry, good cap refill proxi mal to necrotic area. HEMATOCRIT Date Value Range Status 11/24/08 22.9* 36.0-46.0 (%) Preliminary 11/23/08 23.9* 36.0-46.0 (%) Final A/P: 53 y/o F POD #3 s/p finger amp. Plan for reassessment 11/25 with dressing change. Mary hui continue to follow. Gabi Martinez M D - 11/23/2008 11:51 PM PDT USABILITY ARCHITECT Post op check Delayed note entry for 1800 Patient up and eating her dinner. Reports that she is feeling well with no problems. No cr amping. No bleeding - not even needing a pad. Question regarding menopausal status - had reg ular periods up until 3 months ago and then began bleeding all the time. Had hotflashes. Exam: NAD Last Vitals: BP 130/70 | Pulse 90 | Temp 36.5 C (97.7 F) | Resp 18 | Wt 85.3 kg (188 lb 0.8 oz) | SpO2 100% 24 Hour Vital Min/Max: Systolic (24hrs), Min:95 mmHg, Max:170 mmHg Diastolic (24hrs), Min:67 mmHg, Max:97 mmHg Pulse Min: 73 Max: 94 Temp Min: 36.1 C (97 F) Max: 37.3 C (99.1 F) Resp Min: 9 Max: 18 SpO2 Min: 97 % Max: 100 % Intake/Output Summary (Last 24 hours) at 11/23/08 2352 Last data filed at 11/23/08 2204 Gross per 24 hour Intake 3620 ml Output 2470 ml Net 1150 ml Abdomen s/nt No vaginal bleeding A/P S/P vaginal myomectomy. Patient doing well with no evidence of bleeding. No recommendations for care other than to follow vaginal bleeding and if starts to soak 1-2 large pads to call USABILITY ARCHITECT Will continue to follow for now. 1 1:56 PM Chely, Priti Yoon MD - 11/23/2008 6:30 PM PDTFormatting of this note might be di fferent from the original. CLINICAL HOSPITALIST SERVICE ([facility])-PROGRESS NOTE Glycemic team follow up: HOSPITAL DAY: 17 Author: PRITI FONSECA MD Subjective: No nausea or vomiting. NPH held for surgery this Am as she was NPO. Physical Exam: Vitals (Most recent): Blood pressure 143/94, pulse 82, temperature 36.2 C (97.2 F), res p. rate 16, weight 85.3 kg (188 lb 0.8 oz), SpO2 100%. Intake/Output Summary (Last 24 hours) at 11/23/08 1830 Last data filed at 11/23/08 1800 Gross per 24 hour Intake 3670 ml Output 2970 ml Net 700 ml General : NAD. Studies: Chemistries: Last 72 Hours (or 3 results): Recent Labs Basename 11/23/08 0611/22/08 0430 11/21/08 0441 NA 140 138 138 K 4.3 4.2 4.2 CL 106 105 106 BICARB 30 28 28 BUN 7 6 10 CR 0.80 0.65 0.58* GLU 161* 152* 132* CA 8.5* 8.5* 8.4* MG 2.3 2.2 2.3 PO4 4.2 4.3 4.3 CBC with diff last 72 hours (or 3 results) Recent Labs Basename 11/23/0800 11/22/08 0430 11/21/08 0441 WBC 13.5* 20.2* 18.6* HB 7.8* 8.2* 7.8* HCT 23.9* 24.6* 23.5* PLT 713* 631* 562* NEUTROPERC -- -- -- BANDPCT -- -- -- LYMPHPERC -- -- -- MONOPERC -- -- -- BASOPERC -- -- -- EOSPERC -- -- -- Lab Results Component Value Date GLU 161 11/23/08 GLU 152 9/24/09 GLU 132 11/21/08 Current Meds: acetaminophen (aka TYLENOL) tablet 650 mg, 650 mg, Oral, Q4H PRN aspirin EC tablet 325 mg, 325 mg, Oral, DAILY bisacodyl (aka DULCOLAX) suppository 10 mg, 10 mg, Rectal, BID PRN bisacodyl EC (aka DULCOLAX) tablet 5 mg, 5 mg, Oral, DAILY PRN ceFAZolin (aka ANCEF) injection 1 g, 1 g, Intravenous, Q8H dextrose 5%-lactated ringers IV, , Intravenous, CONTINUOUS dextrose injection 25 mL, 12.5 g, Intravenous, Q15MIN PRN diphenhydrAMINE (aka BENADRYL) capsule 25 mg, 25 mg, Oral, Q8H PRN docusate sodium (aka COLACE) capsule 100 mg, 100 mg, Oral, BID PRN enoxaparin (aka LOVENOX) injection 80 mg, 80 mg, Subcutaneous, BID glucagon (aka GLUCAGEN) injection 1 mg, 1 mg, Subcutaneous, Q15MIN PRN glucose chewable tablet 15 g, 15 g, Oral, Q15MIN PRN heparin lock flush IV 50 Units, 50 Units, Intravenous, PRN HYDROmorphone (aka DILAUDID) injection 1-2 mg, 1-2 mg, Intravenous, Q4H PRN insulin aspart (aka NOVOLOG) injection 1-16 Units, 1-16 Units, Subcutaneous, AC and HS insulin aspart (aka NOVOLOG) injection 5 Units, 5 Units, Subcutaneous, TID AC insulin NPH (aka HUMULIN N,NOVOLIN N) injection 18 Units, 18 Units, Subcutaneous, Q12H lisinopril (aka PRINIVIL) tablet 5 mg, 5 mg, Oral, DAILY medroxyPROGESTERone (aka PROVERA) tablet 20 mg, 20 mg, Oral, DAILY metoprolol (aka LOPRESSOR) tablet 25 mg, 25 mg, Oral, BID naloxone (aka NARCAN) injection, , Intravenous, PRN ondansetron (aka ZOFRAN) injection 4 mg, 4 mg, Intravenous, Q12H PRN oxycodone immediate release (aka ROXICODONE) tablet 5-20 mg, 5-20 mg, Oral, Q3H PRN promethazine (aka PHENERGAN) injection 12.5 mg, 12.5 mg, Intravenous, Q6H PRN senna-docusate (aka SENOKOT S) 8.6-50 mg 1 Tab, 1 Tab, Oral, BID simethicone chew (aka MYLICON) tablet 80 mg, 80 mg, Oral, TID PRN simvastatin (aka ZOCOR) tablet 10 mg, 10 mg, Oral, QPM Assessment/Plan: 53 year old woman with newly diagnosed Diabetes Mellitus type 2 and uncont rolled hyperglycemia. 1. Dm type 2 CBGs (24h) : CBG Result ($) Min: 154 Max: 387 LastCBG CBG Result ($): 387 (11/23/08 4:55 PM) CBG Intervention: Medication given (11/22/08 5:00 PM) Target glucose : Fasting <140 and Random <180 (Non-ICU patients) Home Rx : Nil. Current Rx : NPH 18 UN q12h, missed AM dose today as she was NPO J IV fluids : RL BMP : Noted Hypoglycemia : Nil Recommendations: Have advised RN to give Insulin N now, will increase to 22 units q12h and increase prandial insulin to 10 UN tid as before, continue SSI. Would d/c IV fluids. PRITI FONSECA MD [place] [id number] Clinical Hospitalist Service [facility] DEPARTMENT: Hosp ([facility])- [phone] Place of Service: IP - [phone] [facility] [phone] CPT: 33722 Subsequent Visit Prob Focused/Low Complexity 15 min Total time spent on this encounter: 15' Yvette Lieberman Md - 11/23/2008 8:11 AM PDT VASCULAR SURGERY INPATIENT PROGRESS NOTE: Author; YVETTE PAULA MD Attending Physician: Roc Rae MD 24 hour events: No acute events overnight. No vaginal bleeding, a bit nervous about surger y today. Still having pain the left hand. Objective: Last Vitals: BP 128/75 | Pulse 76 | Temp 36.3 C (97.3 F) | Resp 18 | Wt 85.3 kg (188 lb 0.8 oz) | SpO2 97% 24 Hour Vital Min/Max: Systolic (24hrs), Min:95 mmHg, Max:134 mmHg Diastolic (24hrs), Min:61 mmHg, Max:79 mmHg Pulse Min: 73 Max: 87 Temp Min: 36.1 C (97 F) Max: 37.2 C (99 F) Resp Min: 16 Max: 18 SpO2 Min: 96 % Max: 98 % I/O: Intake/Output Summary (Last 24 hours) at 11/23/08810 Last data filed at 11/23/08 06 Gross per 24 hour Intake 2660 ml Output 2060 ml Net 600 ml hysical Exam: General: AOX3, NAD Respiratory: CTA-B Cardiovascular: RRR, no MGR Abdomen: Soft, nontender, nondistended Vascular: Wound vac to good seal/suction. The hand is dressed and without bleed-through. Labs: Chemistries: Last 72 Hours (or 3 results): Recent Labs Basename 11/23/08 0600 11/22/080 11/21/08440 NA 140 138 138 K 4.3 4.2 4.2 CL 106 105 106 BICARB 30 28 28 BUN 7 6 10 CR 0.80 0.65 0.58* CA 8.5* 8.5* 8.4* MG 2.3 2.2 2.3 PO4 4.2 4.3 4.3 CBC with diff last 72 hours (or 3 results) Recent Labs Basename 11/23/08 0611/22/080 11/21/08440 WBC 13.5* 20.2* 18.6* HB 7.8* 8.2* 7.8* HCT 23.9* 24.6* 23.5* PLT 713* 631* 562* NEUTROPERC -- -- -- BANDPCT -- -- -- LYMPHPERC -- -- -- MONOPERC -- -- -- BASOPERC -- -- -- EOSPERC -- -- -- Assessment and Plan: 53 yo female s/p thrombectomy of brachial, radial and ulnar arteries x2, extensor and flexo r forearm fasciotomies and palmar hand fasciotomies, now 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 To OR today with USABILITY ARCHITECT for myomectomy vs hysterectomy Will remove wound vac post-op. Appreciate ortho/hand involvement and management of amputation wounds Cont ancef for now Avery Matias MD - 11/23/2008 7:06 AM PDT INPATIENT PROGRESS NOTE Hospital Day:17 Author; EMILY CARDONA MD Attending Physician: Roc Rae MD Interval Hx: No overnight events. Pt feeling well, though c/o pain in her hand s/p surgery. No vaginal bleeding. Physical Exam: Last Vitals: BP 128/75 | Pulse 76 | Temp 36.3 C (97.3 F) | Resp 18 | Wt 85.3 kg (188 lb 0.8 oz) | SpO2 97% O2 Delivery Device: None (room air) (11/23/08 6:49 AM) 24 Hour Vital Min/Max: Systolic (24hrs), Min:95 mmHg, Max:134 mmHg Diastolic (24hrs), Min:52 mmHg, Max:79 mmHg Pulse Min: 73 Max: 87 Temp Min: 36.1 C (97 F) Max: 37.2 C (99 F) Resp Min: 16 Max: 18 SpO2 Min: 96 % Max: 98 % Intake/Output Summary (Last 24 hours) at 11/23/08 0706 Last data filed at 11/23/08 0600 Gross per 24 hour Intake 2660 ml Output 2060 ml Net 600 ml General Appearance: NAD. Resting comfortably. Conversant Respiratory: CTAB Cardiovascular: RRR Gastrointestinal: soft, obese, nontender Musculoskeletal: lower extremities without edema. Warm, well perfused. No erythema. Bandage on L upper extremity Labs: Component Latest Reference Range 11/22/2008 11/23/2008 GLUCOSE, PLASMA 60 - 99 mg/dL 152 (H) 161 (H) BUN 6 - 20 mg/dL 6 7 CREATININE 0.60 - 1.10 mg/dL 0.65 0.80 SODIUM 134 - 143 mmol/L 138 140 POTASSIUM 3.4 - 5.0 mmol/L 4.2 4.3 CHLORIDE 97 - 108 mmol/L 105 106 CALCIUM 8.6 - 10.2 mg/dL 8.5 (L) 8.5 (L) CO2 23 - 31 mmol/L 28 30 WHITE CELL COUNT 4.4 - 11.0 K/cu mm 20.2 (H) 13.5 (H) RED CELL COUNT 4.00 - 5.20 M/cu mm 2.80 (L) 2.73 (L) HEMOGLOBIN 12.0 - 16.0 g/dL 8.2 (L) 7.8 (L) HEMATOCRIT 36.0 - 46.0 % 24.6 (L) 23.9 (L) MCV 80.0 - 96.0 fL 87.7 87.5 MCHC 33.4 - 35.5 g/dL 33.5 32.7 (L) RDW 11.5 - 15.0 % 16.7 (H) 16.6 (H) PLATELET COUNT 150 - 400 K/cu mm 631 (H) 713 (H) PHOSPHORUS, PLASMA 2.4 - 4.7 mg/dL 4.3 4.2 MAGNESIUM, PLASMA 1.8 - 2.5 mg/dL 2.2 2.3 CBGs: 110-222 Assessment and Plan: 53yo s/p admission 11/06 for L forearm arterial occulsion after a horsebit. S/p flexor a nd extension compartment fasciotomies and embolectomies 11/08, digit amputations by orthro on 11/21. Pt also has 8cm prolapsing fibroid causing vaginal bleeding and subsequent anemia. Levi s required multiple transfusions. On anticoagulation secondary to L forearm arterial occlusi ons 1) To OR this AM for attempted vaginal myomectomy, possible hysterectomy with BSO if vagina l attempt unsuccessful. Pt is agreeable to this plan and PARQ held and consent signed. 2) If myomectomy successful, will hold Provera to assess the effects of surgery on vaginal bleeding. I saw and evaluated the patient. I agree with the findings and the plan of care as docgina enamorado in the resident s note. AVERY LEE MD [facility] [address] [id number] [facility] [address] acob, Priti Yoon MD - 11/22/2008 8:26 PM PDT CLINICAL HOSPITALIST SERVICE ([facility])-PROGRESS NOTE Glycemic team follow up: HOSPITAL DAY: 16 Author: PRITI FONSECA MD Subjective: No nausea or vomiting. Physical Exam: Vitals (Most recent): Blood pressure 105/61, pulse 87, temperature 37.2 C (99 F), resp. rate 16, weight 85.3 kg (188 lb 0.8 oz), SpO2 96%. Intake/Output Summary (Last 24 hours) at 11/22/082025 Last data filed at 11/22/08 190 Gross per 24 hour Intake 1660 ml Output 2435 ml Net -775 ml General : NAd. Studies: Chemistries: Last 72 Hours (or 3 results): Recent Labs Basename 11/22/080 11/21/0844011/20/08439 NA 138 138 139 K 4.2 4.2 4.3 CL 105 106 107 BICARB 28 28 29 BUN 6 10 9 CR 0.65 0.58* 0.66 GLU 152* 132* 103* CA 8.5* 8.4* 8.0* MG 2.2 2.3 2.2 PO4 4.3 4.3 4.4 CBC with diff last 72 hours (or 3 results) Recent Labs Basename 11/22/08 0430 11/21/081 11/20/08439 WBC 20.2* 18.6* 19.7* HB 8.2* 7.8* 8.3* HCT 24.6* 23.5* 24.9* PLT 631* 562* 581* NEUTROPERC -- -- -- BANDPCT -- -- -- LYMPHPERC -- -- -- MONOPERC -- -- -- BASOPERC -- -- -- EOSPERC -- -- -- Lab Results Component Value Date GLU 152 11/22/08 GLU 132 11/21/08 GLU 103 11/20/08 Current Meds: acetaminophen (aka TYLENOL) tablet 650 mg, 650 mg, Oral, Q4H PRN aspirin EC tablet 325 mg, 325 mg, Oral, DAILY bisacodyl (aka DULCOLAX) suppository 10 mg, 10 mg, Rectal, BID PRN bisacodyl EC (aka DULCOLAX) tablet 5 mg, 5 mg, Oral, DAILY PRN ceFAZolin (aka ANCEF) injection 1 g, 1 g, Intravenous, Q8H dextrose 5%-lactated ringers IV, , Intravenous, CONTINUOUS dextrose injection 25 mL, 12.5 g, Intravenous, Q15MIN PRN diphenhydrAMINE (aka BENADRYL) capsule 25 mg, 25 mg, Oral, Q8H PRN docusate sodium (aka COLACE) capsule 100 mg, 100 mg, Oral, BID PRN glucagon (aka GLUCAGEN) injection 1 mg, 1 mg, Subcutaneous, Q15MIN PRN glucose chewable tablet 15 g, 15 g, Oral, Q15MIN PRN heparin lock flush IV 50 Units, 50 Units, Intravenous, PRN HYDROmorphone (aka DILAUDID) injection 1-2 mg, 1-2 mg, Intravenous, Q4H PRN insulin aspart (aka NOVOLOG) injection 1-16 Units, 1-16 Units, Subcutaneous, AC and HS insulin aspart (aka NOVOLOG) injection 5 Units, 5 Units, Subcutaneous, TID AC insulin NPH (aka HUMULIN N,NOVOLIN N) injection 18 Units, 18 Units, Subcutaneous, Q12H lisinopril (aka PRINIVIL) tablet 5 mg, 5 mg, Oral, DAILY medroxyPROGESTERone (aka PROVERA) tablet 20 mg, 20 mg, Oral, DAILY metoprolol (aka LOPRESSOR) tablet 25 mg, 25 mg, Oral, BID naloxone (aka NARCAN) injection, , Intravenous, PRN ondansetron (aka ZOFRAN) injection 4 mg, 4 mg, Intravenous, Q12H PRN oxycodone immediate release (aka ROXICODONE) tablet 5-20 mg, 5-20 mg, Oral, Q3H PRN promethazine (aka PHENERGAN) injection 12.5 mg, 12.5 mg, Intravenous, Q6H PRN senna-docusate (aka SENOKOT S) 8.6-50 mg 1 Tab, 1 Tab, Oral, BID simethicone chew (aka MYLICON) tablet 80 mg, 80 mg, Oral, TID PRN simvastatin (aka ZOCOR) tablet 10 mg, 10 mg, Oral, QPM Assessment/Plan: Newly diagnosed Diabetes Mellitus type 2 with a HBA1c of > 14 going to [facility] OR tomorrow for gynecological surgery. Diet : Recommend 1600 calorie diabetic diet. CBG Result Min: 128 Max: 222 LastCBG CBG Result ($): 222 (11/22/08 4:48 PM) CBG Intervention: Medication given (11/22/08 5:00 PM) Target glucose : Fasting <140 and Random <180 (Non-ICU patients) Current Rx : NPH 13 units bid ( incr to 18 UN bid) and Novolog 5 U tid BMP : Noted Hypoglycemia : Nil Recommendations: Insulin requirement is increasing. Recommend starting an insulin infusion pre-op and maintaining it torri-op as her requirement has been fluctuating. Would give the 1 8 units of NPH in the AM to cover basal insulin requirement. PRITI FONSECA MD [address] Clinical Hospitalist Service [facility] DEPARTMENT: [facility] ([facility])- [phone] Place of Service: IP - [phone] [facility] [phone] CPT: 05653 Subsequent Visit Prob Focused/Low Complexity 15 min Total time spent on this encounter: 20' Margie Gamboa MD - 11/22/2008 5:09 PM PDTBrief PM update note: Pt feeling ready for drum builder surgery tomorrow. Appreciate primary team ordering NPO, IVF, PRBC s, and holding lovenox. Pt signed informed consent for attempted vaginal myomectomy, with p ossible vaginal or abdominal hysterectomy if unable to remove only the prolapsed fibroid. S he desires removal of both fallopian tubes and ovaries if she is to have a hysterectomy, and understands the slightly increased surgical risk with a BSO and premature menopause assumin g her ovaries aren't already menopausal. She understands the risks of surgery, and signed a formal consent, which was placed on her chart. Dr. Lee is in agreement with the above plan, and will be the attending physician for the case 11/23 in the AM. Margie Cates MD, [facility] lysses Pena MD - 11/22/2008 2:58 PM PDTOrthopaedic Progress Note: Subjective: Left hand and arm pain controlled. Objective: Wt 85.3 kg (188 lbs 0.8 oz)( < 3 %ile), BP 134/79, Pulse 77, Temperature 36.8 C (98.2 F ), RR 18, SpO2 98%. 24 hour Vitals min/max :Temp Min: 36.5 C (97.7 F) Max: 37.1 C (98.8 F) Left upper extremity - Dressing: Clean/Dry/Intact. Motor: Not examined today Sensory: Not examined today Vascular: capillary refill < 1 second Assesment/Plan: POD# 1 Status post Finger amp. Doing well - Will monitor fingers for viable vascularity over coverage of tips - Pt to OR tomorrow for fibroids. Mio Gayle, Yvette - 0 11/22/2008 7:49 AM PDT VASCULAR SURGERY INPATIENT PROGRESS NOTE: Author; YVETTE PAULA MD Attending Physician: Roc Rae MD 24 hour events: No acute events overnight. Pain is well controlled, and pt slept well last night. Taken to OR yesterday by ortho for amputation of distal portion of fingers 2-5. Objective: Last Vitals: BP 110/52 | Pulse 80 | Temp 36.5 C (97.7 F) | Resp 18 | Wt 85.3 kg (188 lb 0.8 oz) | SpO2 98% 24 Hour Vital Min/Max: Systolic (24hrs), Min:110 mmHg, Max:146 mmHg Diastolic (24hrs), Min:52 mmHg, Max:92 mmHg Pulse Min: 74 Max: 87 Temp Min: 36.5 C (97.7 F) Max: 37.1 C (98.8 F) Resp Min: 9 Max: 18 SpO2 Min: 96 % Max: 100 % I/O: Intake/Output Summary (Last 24 hours) at 11/22/08 0749 Last data filed at 11/22/08 0600 Gross per 24 hour Intake 780 ml Output 1325 ml Net -545 ml Physical Exam: General: AOX3, NAD. Right IJ still in place. Respiratory: CTA-B Cardiovascular: RRR, no MGR Abdomen: Soft, nontender, nondistended Vascular: left arm is dressed and without bleedthrough, wound vac to good seal, suction at 75mmHg. Labs: Chemistries: Last 72 Hours (or 3 results): Recent Labs Basename 11/22/08 0430 11/21/081 11/20/08439 NA 138 138 139 K 4.2 4.2 4.3 CL 105 106 107 BICARB 28 28 29 BUN 6 10 9 CR 0.65 0.58* 0.66 CA 8.5* 8.4* 8.0* MG 2.2 2.3 2.2 PO4 4.3 4.3 4.4 CBC with diff last 72 hours (or 3 results) Recent Labs Basename 11/22/08 0430 11/21/0844011/20/08439 WBC 20.2* 18.6* 19.7* HB 8.2* 7.8* 8.3* HCT 24.6* 23.5* 24.9* PLT 631* 562* 581* NEUTROPERC -- -- -- BANDPCT -- -- -- LYMPHPERC -- -- -- MONOPERC -- -- -- BASOPERC -- -- -- EOSPERC -- -- -- Assessment and Plan: 53 yo female s/p thrombectomy of brachial, radial and ulnar arteries x2, extensor and flexo r forearm fasciotomies and palmar hand fasciotomies, now POD 1 s/p mutiple finger amputation to left hand. [employer] to take pt to OR tomorrow for vaginal vs abdominal hysterectomy NPO p MN with MIVF Holding lovenox for now 4 u PRBC OCTOR for tomorrow Will try to change wound vac in OR after drum builder case while pt still sedated. Appreciate ortho/hand involvement for management of hand wounds s/p amputation Reg diet today Maintain negative pressure therapy Continue ancef Continue metoprolol, simvastatin, aspirin, cbg control with NPH and ISS. Avery Matias MD - 11/22/2008 7:33 AM PDT INPATIENT PROGRESS NOTE Hospital Day:16 Author; EMILY CARDONA MD Attending Physician: Roc Rae MD Interval Hx: Pt c/o "not feeling good" since her surgery yesterday. Some N/V. However, she is ambulating, voiding, tolerating po. She has had minimal vaginal bleeding. Physical Exam: Last Vitals: BP 110/52 | Pulse 80 | Temp 36.5 C (97.7 F) | Resp 18 | Wt 85.3 kg (188 lb 0.8 oz) | SpO2 98% O2 Delivery Device: None (room air) (11/22/08 7:18 AM) 24 Hour Vital Min/Max: Systolic (24hrs), Min:110 mmHg, Max:146 mmHg Diastolic (24hrs), Min:52 mmHg, Max:92 mmHg Pulse Min: 74 Max: 87 Temp Min: 36.5 C (97.7 F) Max: 37.1 C (98.8 F) Resp Min: 9 Max: 18 SpO2 Min: 96 % Max: 100 % Intake/Output Summary (Last 24 hours) at 11/22/08 0733 Last data filed at 11/22/08 0600 Gross per 24 hour Intake 780 ml Output 1325 ml Net -545 ml General Appearance: NAD, but appears tired, sad Respiratory: CTAB Cardiovascular: RRR Gastrointestinal: soft, nondistended, nontender Labs: Component Latest Reference Range 11/21/2008 11/22/2008 GLUCOSE, PLASMA 60 - 99 mg/dL 132 (H) 152 (H) BUN 6 - 20 mg/dL 10 6 CREATININE 0.60 - 1.10 mg/dL 0.58 (L) 0.65 SODIUM 134 - 143 mmol/L 138 138 POTASSIUM 3.4 - 5.0 mmol/L 4.2 4.2 CHLORIDE 97 - 108 mmol/L 106 105 CALCIUM 8.6 - 10.2 mg/dL 8.4 (L) 8.5 (L) CO2 23 - 31 mmol/L 28 28 WHITE CELL COUNT 4.4 - 11.0 K/cu mm 18.6 (H) 20.2 (H) RED CELL COUNT 4.00 - 5.20 M/cu mm 2.68 (L) 2.80 (L) HEMOGLOBIN 12.0 - 16.0 g/dL 7.8 (L) 8.2 (L) HEMATOCRIT 36.0 - 46.0 % 23.5 (L) 24.6 (L) MCV 80.0 - 96.0 fL 87.5 87.7 MCHC 33.4 - 35.5 g/dL 33.3 (L) 33.5 RDW 11.5 - 15.0 % 16.4 (H) 16.7 (H) PLATELET COUNT 150 - 400 K/cu mm 562 (H) 631 (H) PHOSPHORUS, PLASMA 2.4 - 4.7 mg/dL 4.3 4.3 MAGNESIUM, PLASMA 1.8 - 2.5 mg/dL 2.3 2.2 Assessment and Plan: 53yo s/p admission 11/06 for L forearm arterial occulsion after a horsebit. S/p flexor a nd extension compartment fasciotomies and embolectomies 11/08, digit amputations by orthro on 11/21. Pt also has 8cm prolapsing fibroid causing vaginal bleeding and subsequent anemia. Levi s required multiple transfusions. On anticoagulation secondary to L forearm arterial occlusi ons 1) Vaginal bleeding: minimal bleeding overnight. continue Provera and pad count. Transfusio ns per primary team. IR aware of pt in case of acute vaginal bleed requiring uterine artery embolization 2) Fibroid: pt requires definitive operative management with myomectomy vs hysterectomy. No t ideal operative candidate while anticoagulated. Plan to hold anticoagulation today and belen e to OR on 11/23 at 0730. NPO after midnight. I saw and evaluated the patient. I agree with the findings and the plan of care as evelyn enamorado in the resident s note. AVERY LEE MD [facility] [address] [id number] [facility] [address] Misbah Dhillon MD - 11/21/2008 7:20 PM PDTPost-Operative Check S:Comfortable O: Last Vitals: BP 138/77 | Pulse 85 | Temp 36.5 C (97.7 F) | Resp 15 | Wt 76.1 kg (167 lb 12.3 oz) | SpO2 99% 24 hour Vitals min/max : Temp Min: 36.1 C (97 F) Max: 37 C (98.6 F) Systolic (24hrs), Min:103 mmHg, Max:140 mmHg Diastolic (24hrs), Min:60 mmHg, Max:92 mmHg Pulse Min: 60 Max: 93 SpO2 Min: 96 % Max: 100 % BP 138/77 | Pulse 85 | Temp 36.5 C (97.7 F) | Resp 15 | Wt 76.1 kg (167 lb 12.3 oz) | S pO2 99% Pain Score: Dressing: C/D/I Kerlex in place and no drainage A/P: POD#0 s/p amputation of left index, long, ring and small fingers through middle phalan x. I&D of palmar wound 1) Will leave dressings in place for 3 days. 2) cultures pending from left small finger 3) forearm management per vascular surgery. Sam Gonzales MD - 11/21/2008 11:45 AM PDTR4 attestation: Agree with above written note. Ms. Mcclellan is stable. Her wound was evaluated today in e OR with the Orthopaedic team. Appreciative of their care in this pleasant patient. Her w ound vac was changed [place]. We will plan to keep her on abx giv en the concern of an infected 5th digit which was amputated. Will plan to change the wound vac on Wednesday and will resume the schedule of /Wed vac changes. Sam Niño M.D. General Surgery Resident [facility] Pager: [phone] Nasra Gaona Md - 11/21/2008 11:45 AM PDT VASCULAR SURGERY PROGRESS NOTE: Attending Physician: Roc Rae MD 11/21/2008 Subjective: Pt without complaints this morning. She states she is ready to go to the OR with orthopaedi cs today. Medications: Current hospital medications: acetaminophen (aka TYLENOL) tablet 650 mg, 650 mg, Oral, Q4H PRN, Avery Almazan MD, Last Dose: 650 mg at 11/17/087 aspirin EC tablet 325 mg, 325 mg, Oral, DAILY, Avery Almazan MD, Last Dose: 325 mg at 0 11/20/088 bisacodyl (aka DULCOLAX) suppository 10 mg, 10 mg, Rectal, BID PRN, Avery Almazan MD bisacodyl EC (aka DULCOLAX) tablet 5 mg, 5 mg, Oral, DAILY PRN, Jeff Garcia MD, Last Dose: 5 mg at 11/11/08 213 ceFAZolin (aka ANCEF) injection 1 g, 1 g, Intravenous, Q8H, Sam Niño MD, Last Dose: 1 g at 11/21/08 0806 dextrose 5%-lactated ringers IV, , Intravenous, CONTINUOUS, Sam Niño MD, Last Rate : 10 mL/hr (11/10/08 1630) dextrose injection 25 mL, 12.5 g, Intravenous, Q15MIN PRN, PETER Rosas diphenhydrAMINE (aka BENADRYL) capsule 25 mg, 25 mg, Oral, Q8H PRN, Carlin Clemente MD, L ast Dose: 25 mg at 11/17/08 1454 docusate sodium (aka COLACE) capsule 100 mg, 100 mg, Oral, BID PRN, Avery Almazan MD, L ast Dose: 100 mg at 11/14/08 1334 enoxaparin (aka LOVENOX) injection 70 mg, 70 mg, Subcutaneous, BID, Kierra Donohue, [facility], Last Dose: 70 mg at 11/20/08 2137 glucagon (aka GLUCAGEN) injection 1 mg, 1 mg, Subcutaneous, Q15MIN PRN, PETER Rosas glucose chewable tablet 15 g, 15 g, Oral, Q15MIN PRN, PETER Rosas heparin lock flush IV 50 Units, 50 Units, Intravenous, PRN, Roc Rae MD, Last Dose : 50 Units at 11/21/08 0401 HYDROmorphone (aka DILAUDID) injection 1-2 mg, 1-2 mg, Intravenous, Q4H PRN, PETER Rosas, Last Dose: 1 mg at 11/13/08 203 insulin aspart (aka NOVOLOG) injection 1-16 Units, 1-16 Units, Subcutaneous, AC and HS, Pre bobo Reyna MD, Last Dose: 4 Units at 11/21/08 0807 insulin aspart (aka NOVOLOG) injection 10 Units, 10 Units, Subcutaneous, TID AC, Brycebobo matias MD, Last Dose: 10 Units at 11/20/08 1724 insulin NPH (aka HUMULIN N,NOVOLIN N) injection 26 Units, 26 Units, Subcutaneous, Q12H, Pre bobo Reyna MD, Last Dose: 13 Units at 11/21/08 0807 lisinopril (aka PRINIVIL) tablet 5 mg, 5 mg, Oral, DAILY, PETER Rosas, Last Dose: 5 mg at 11/21/08 08 medroxyPROGESTERone (aka PROVERA) tablet 20 mg, 20 mg, Oral, DAILY, Shelby Garcia MD, Las t Dose: 20 mg at 11/21/08821 metoprolol (aka LOPRESSOR) tablet 25 mg, 25 mg, Oral, BID, Yvette Paula MD, Last Dose: 2 5 mg at 11/21/08821 naloxone (aka NARCAN) injection, , Intravenous, PRN, Sam Niño MD ondansetron (aka ZOFRAN) injection 4 mg, 4 mg, Intravenous, Q12H PRN, Avery Almazan MD, Last Dose: 4 mg at 11/12/081999 oxycodone immediate release (aka ROXICODONE) tablet 5-20 mg, 5-20 mg, Oral, Q3H PRN, PETER Rosas, Last Dose: 20 mg at 11/20/082212 senna-docusate (aka SENOKOT S) 8.6-50 mg 1 Tab, 1 Tab, Oral, BID, Jeff Garcia MD, La st Dose: 1 Tab at 11/21/08821 simethicone chew (aka MYLICON) tablet 80 mg, 80 mg, Oral, TID PRN, Avery Almazan MD simvastatin (aka ZOCOR) tablet 10 mg, 10 mg, Oral, QPM, Avrey Almazan MD, Last Dose: 10 mg at 11/20/087 Objective: Systolic (24hrs), Min:103 mmHg, Max:128 mmHg Diastolic (24hrs), Min:60 mmHg, Max:87 mmHg Pulse Min: 60 Max: 93 Temp Min: 36.1 C (97 F) Max: 37 C (98.6 F) Resp Min: 16 Max: 18 SpO2 Min: 96 % Max: 100 % Intake/Output Summary (Last 24 hours) at 11/21/08 1145 Last data filed at 11/21/08 0700 Gross per 24 hour Intake 955 ml Output 1220 ml Net -265 ml Physical Exam: General: Alert and oriented, no acute distress Respiratory: CTA bilaterally. Cardiovascular: RRR no murmurs Abdomen: Soft, NTND. Wound: Forearm fasciotomy site with wound vac in place to continuous suction. The extenso r fasciotomy site on the forearm continues to have some sanguinous seepage. Wrist sutures ar e c/d/i. Hand fasciotomy sites have some purulent drainage and continue to heal secondarily with scab overlying. Dry gangrene of fingertips is stable and demarcated. Pt continues to di splay limited finger flexion and extension mobility. Extremities: Warm and well perfused Labs: Chemistries: Recent Labs Basename 11/21/08 04411/20/080 11/19/08 0400 NA 138 139 140 K 4.2 4.3 3.6 CL 106 107 108 BICARB 28 29 27 BUN 10 9 10 CR 0.58* 0.66 0.66 GLU 132* 103* 100* CA 8.4* 8.0* 8.5* MG 2.3 2.2 2.3 PO4 4.3 4.4 4.5 CBC with diff Recent Labs Basename 11/21/081 11/20/080 11/19/08 0400 WBC 18.6* 19.7* 17.4* HB 7.8* 8.3* 9.7* HCT 23.5* 24.9* 28.5* PLT 562* 581* 527* NEUTROPERC -- -- -- BANDPCT -- -- -- LYMPHPERC -- -- -- MONOPERC -- -- -- BASOPERC -- -- -- EOSPERC -- -- -- Coag Lab Results Component Value Date INR 1.28 11/09/08 INR 1.38 11/08/08 INR 1.09 11/06/08 CBG's CBG Result ($) Min: 166 Max: 264 LastCBG CBG Result ($): 166 (Randolph aware) (11/21/08 9:36 AM) CBG Intervention: Medication given (11/20/08 9:00 PM) Assessment and Plan: Kelly Mcclellan is a 53 y.o. female who is on HD# 15, POD #14/13 S/P thrombectomy of brachial , radial and ulnar arteries x2, extensor and flexor forearm fasciotomies and palmar hand fas ciotomies. 1) Gangrene: Plan to go to OR with ortho today for fingers 2-5 amputation at middle phalan x and hand fasciotomy washout. 2) ID: due to purulent drainage of hand fasciotomies and continued leukocytosis, Ancef was started yesterday. 3) Wound care: our team will change wound vac intraoperatively today. Will continue bi-wee kly wound vac changes and daily hand dressing changes. 4) Bleeding fibroid: [employer] team plans vaginal myomectomy with possible abdominal hysterectom y if unable to resect by vaginal approach. Right now their plan is to go to the OR Wednesday v. Wednesday. We will continue to be in communication with them as far as definitive plans. Nasra Lamar, MSIV Che[place], Priti Yoon MD - 11/21/2008 9:15 AM PDT CLINICAL HOSPITALIST SERVICE ([facility])-PROGRESS NOTE Glycemic team follow up: HOSPITAL DAY: 15 Author: PRITI FONSECA MD Subjective: back from the OR, no pain at this time, has resumed eating. Physical Exam: Vitals (Most recent): Blood pressure 117/73, pulse 80, temperature 36.6 C (97.9 F), resp. rate 16, weight 76.1 kg (167 lb 12.3 oz), SpO2 99%. Intake/Output Summary (Last 24 hours) at 11/21/08 0915 Last data filed at 11/21/08 0700 Gross per 24 hour Intake 955 ml Output 1220 ml Net -265 ml General : Sitting out in a recliner, NAD. Studies:Chemistries: Last 72 Hours (or 3 results): Recent Labs Basename 11/21/08 0441 11/20/08 0440 11/19/08 0400 NA 138 139 140 K 4.2 4.3 3.6 CL 106 107 108 BICARB 28 29 27 BUN 10 9 10 CR 0.58* 0.66 0.66 GLU 132* 103* 100* CA 8.4* 8.0* 8.5* MG 2.3 2.2 2.3 PO4 4.3 4.4 4.5 CBC with diff last 72 hours (or 3 results) Recent Labs Basename 11/21/08 0441 11/20/08 0440 11/19/08 0400 WBC 18.6* 19.7* 17.4* HB 7.8* 8.3* 9.7* HCT 23.5* 24.9* 28.5* PLT 562* 581* 527* NEUTROPERC -- -- -- BANDPCT -- -- -- LYMPHPERC -- -- -- MONOPERC -- -- -- BASOPERC -- -- -- EOSPERC -- -- -- Lab Results Component Value Date GLU 132 11/21/08 GLU 103 11/20/08 GLU 100 11/19/08 Current Meds: acetaminophen (aka TYLENOL) tablet 650 mg, 650 mg, Oral, Q4H PRN aspirin EC tablet 325 mg, 325 mg, Oral, DAILY bisacodyl (aka DULCOLAX) suppository 10 mg, 10 mg, Rectal, BID PRN bisacodyl EC (aka DULCOLAX) tablet 5 mg, 5 mg, Oral, DAILY PRN ceFAZolin (aka ANCEF) injection 1 g, 1 g, Intravenous, Q8H dextrose 5%-lactated ringers IV, , Intravenous, CONTINUOUS dextrose injection 25 mL, 12.5 g, Intravenous, Q15MIN PRN diphenhydrAMINE (aka BENADRYL) capsule 25 mg, 25 mg, Oral, Q8H PRN docusate sodium (aka COLACE) capsule 100 mg, 100 mg, Oral, BID PRN enoxaparin (aka LOVENOX) injection 70 mg, 70 mg, Subcutaneous, BID glucagon (aka GLUCAGEN) injection 1 mg, 1 mg, Subcutaneous, Q15MIN PRN glucose chewable tablet 15 g, 15 g, Oral, Q15MIN PRN heparin lock flush IV 50 Units, 50 Units, Intravenous, PRN HYDROmorphone (aka DILAUDID) injection 1-2 mg, 1-2 mg, Intravenous, Q4H PRN insulin aspart (aka NOVOLOG) injection 1-16 Units, 1-16 Units, Subcutaneous, AC and HS insulin aspart (aka NOVOLOG) injection 10 Units, 10 Units, Subcutaneous, TID AC insulin NPH (aka HUMULIN N,NOVOLIN N) injection 26 Units, 26 Units, Subcutaneous, Q12H lisinopril (aka PRINIVIL) tablet 5 mg, 5 mg, Oral, DAILY medroxyPROGESTERone (aka PROVERA) tablet 20 mg, 20 mg, Oral, DAILY metoprolol (aka LOPRESSOR) tablet 25 mg, 25 mg, Oral, BID naloxone (aka NARCAN) injection, , Intravenous, PRN ondansetron (aka ZOFRAN) injection 4 mg, 4 mg, Intravenous, Q12H PRN oxycodone immediate release (aka ROXICODONE) tablet 5-20 mg, 5-20 mg, Oral, Q3H PRN senna-docusate (aka SENOKOT S) 8.6-50 mg 1 Tab, 1 Tab, Oral, BID simethicone chew (aka MYLICON) tablet 80 mg, 80 mg, Oral, TID PRN simvastatin (aka ZOCOR) tablet 10 mg, 10 mg, Oral, QPM Assessment/Plan: Newly diagnosed Diabetes Mellitus type 2 with a HBA1c of > 14. Diet : Was NPO for surgery. Recommend 1600 calorie diabetic diet. CBGs (24h) : CBG Result Min: 171 Max: 264 LastCBG CBG Result ($): 171 (11/21/08 7:00 AM) CBG Intervention: Medication given (11/20/08 9:00 PM) Target glucose : Fasting <140 and Random <180 (Non-ICU patients) Current Rx : NPH 26 units bid ( got only 13 units this AM) and Novolog 10 U tid BMP : Noted Hypoglycemia : Nil Other pertinent factors : Gangrene hand Recommendations: . Will decrease NPH to 13 units bid and review cbg's in the AM. Insulin an d diabetic teaching by RN PRITI FONSECA MD [facility] 11K Clinical Hospitalist Service [facility] DEPARTMENT: Hosp ([facility])- [phone] Place of Service: IP - [id number] [facility] [phone] CPT: 32623 Subsequent Visit Prob Focused/Low Complexity 15 min Total time spent on this encounter: 15' Ulysses Black MD - 11/20/2008 4:23 PM PDT Orthopaedic Progress Note: Subjective: No new events, pain controlled. Objective: Wt 76.3 kg (168 lbs 3.4 oz)( < 3 %ile), BP 128/87, Pulse 90, Temperature 36.3 C (97.3 F ), RR 18, SpO2 99%. 24 hour Vitals min/max :Temp Min: 36.4 C (97.5 F) Max: 37.2 C (99 F) W[place] present and holding suction Left upper extremity - Black, avascular finger tips to about the level of the middle phalanx. Avascular over dist al tip of thumb. Palm appears to have cap refill. Dressing: fasciotomy site no purulence Motor: Deltoid Biceps Triceps Wrist Ext Digit Abd Shaft Headman Intact Intact Intact Intact 0 Intact - = Not examined Pt is able to flex at digits and extend, but intrinsic hand function not present Sensory: Intact to light touch palm and dorsum of hand. No sens in area of necrosis. Vascular: Palpable radial pulse, capillary refill < 1 second in palm. Avascular at tips of fingers a nd thumb. Assesment/Plan: POD# 8 Status post Fasciotomy forearm and hand. Would rec that pt con't with daily dressing changes. Plan for amputation of the index, middle, ring, and little fingers at the middle p halanx tomorrow, Wed. Bryce Nath MD - 2:27 PM PDT CLINICAL HOSPITALIST SERVICE ([facility])-PROGRESS NOTE Glycemic team follow up: HOSPITAL DAY: 14 Author: BRYCE REYNA MD Subjective: Ms. Mcclellan denies any nausea or vomiting. Good appetite-watching her diet now. Waiting for surgery tomorrow which includes amputation of gangrenous digits and possible hy sterectomy. Had large amount of vaginal bleeding yesterday, but none today. Denies chest mayte n or shortness of breath Physical Exam: Vitals (Most recent): Blood pressure 128/87, pulse 90, temperature 36.3 C (97.3 F), resp. rate 18, weight 76.3 kg (168 lb 3.4 oz), SpO2 99%. Intake/Output Summary (Last 24 hours) at 11/20/08 1427 Last data filed at 11/20/08 1400 Gross per 24 hour Intake 1900 ml Output 2225 ml Net -325 ml General : Awake, alert, not in acute distress Cardiovascular: 1st and 2nd heart sounds normal with regular rhythm. Respiratory: Normal vesicular breath sounds b/l. Gastrointestinal: Abdomen is soft, bowel sounds normal. Musculoskeletal: No peripheral edema. Left arm has many gangrenous digits Studies:Chemistries: Last 72 Hours (or 3 results): Recent Labs Basename 11/20/08 0440 11/19/08 0400 11/18/08 0445 NA 139 140 142 K 4.3 3.6 4.1 CL 107 108 108 BICARB 29 27 28 BUN 9 10 8 CR 0.66 0.66 0.66 GLU 103* 100* 65 CA 8.0* 8.5* 8.6 MG 2.2 2.3 2.4 PO4 4.4 4.5 3.3 CBC with diff last 72 hours (or 3 results) Recent Labs Basename 11/20/08 0440 11/19/08 0400 11/18/08 0445 WBC 19.7* 17.4* 21.3* HB 8.3* 9.7* 10.4* HCT 24.9* 28.5* 30.9* PLT 581* 527* 600* NEUTROPERC -- -- -- BANDPCT -- -- -- LYMPHPERC -- -- -- MONOPERC -- -- -- BASOPERC -- -- -- EOSPERC -- -- -- Lab Results Component Value Date GLU 103 11/20/08 GLU 100 11/19/08 GLU 65 11/18/08 Current Meds: acetaminophen (aka TYLENOL) tablet 650 mg, 650 mg, Oral, Q4H PRN aspirin EC tablet 325 mg, 325 mg, Oral, DAILY bisacodyl (aka DULCOLAX) suppository 10 mg, 10 mg, Rectal, BID PRN bisacodyl EC (aka DULCOLAX) tablet 5 mg, 5 mg, Oral, DAILY PRN dextrose 5%-lactated ringers IV, , Intravenous, CONTINUOUS dextrose injection 25 mL, 12.5 g, Intravenous, Q15MIN PRN diphenhydrAMINE (aka BENADRYL) capsule 25 mg, 25 mg, Oral, Q8H PRN docusate sodium (aka COLACE) capsule 100 mg, 100 mg, Oral, BID PRN enoxaparin (aka LOVENOX) injection 70 mg, 70 mg, Subcutaneous, BID glucagon (aka GLUCAGEN) injection 1 mg, 1 mg, Subcutaneous, Q15MIN PRN glucose chewable tablet 15 g, 15 g, Oral, Q15MIN PRN heparin lock flush IV 50 Units, 50 Units, Intravenous, PRN HYDROmorphone (aka DILAUDID) injection 1-2 mg, 1-2 mg, Intravenous, Q4H PRN insulin aspart (aka NOVOLOG) injection 1-16 Units, 1-16 Units, Subcutaneous, AC and HS insulin aspart (aka NOVOLOG) injection 10 Units, 10 Units, Subcutaneous, TID AC insulin NPH (aka HUMULIN N,NOVOLIN N) injection 26 Units, 26 Units, Subcutaneous, Q12H lisinopril (aka PRINIVIL) tablet 5 mg, 5 mg, Oral, DAILY medroxyPROGESTERone (aka PROVERA) tablet 20 mg, 20 mg, Oral, DAILY metoprolol (aka LOPRESSOR) tablet 25 mg, 25 mg, Oral, BID naloxone (aka NARCAN) injection, , Intravenous, PRN ondansetron (aka ZOFRAN) injection 4 mg, 4 mg, Intravenous, Q12H PRN oxycodone immediate release (aka ROXICODONE) tablet 5-20 mg, 5-20 mg, Oral, Q3H PRN senna-docusate (aka SENOKOT S) 8.6-50 mg 1 Tab, 1 Tab, Oral, BID simethicone chew (aka MYLICON) tablet 80 mg, 80 mg, Oral, TID PRN simvastatin (aka ZOCOR) tablet 10 mg, 10 mg, Oral, QPM Assessment/Plan: 1. Type 2 DM: Newly diagnosed with HbA1C 14% Diet : Diabetic diet CBGs (24h) : AM CB, maximum: 190 Target glucose : Fasting <140 and Random <180 (Non-ICU patients) Home Rx : None Current Rx : NPH insulin 26 units BID and novolog 10 units TID BMP : Noted Hypoglycemia : None Recommendations: AM CBG is still under goal despite reducing the NPH to 26 units BID. Noon CBG has gone up t o 190. Will continue the same regimen for now. I believe we will not be able to bring down h er insulin requirements to 30 units inpatient- need close follow up with PCP who could titra te down insulin and possibly switch to oral hypoglycemics like glipizide and metformin. Expl ained the plan to the patient. She will be NPO for surgery tomorrow and her Novolog will be held. BRYCE REYNA MD [facility] 11[facility] Clinical Hospitalist Service [facility] DEPARTMENT: Hosp ([facility])- [phone] Place of Service: IP - [phone] [facility] [phone] CPT: 49392 Subsequent Visit Prob Focused/Low Complexity 15 min Total time spent on this encounter: 18 min Nasra Gaona Md - 11/20/2008 2:14 PM PDT VASCULAR SURGERY PROGRESS NOTE: Attending Physician: Roc Rae MD 11/20/2008 Subjective: Pt. passed multiple large blood clots vaginally yesterday during the day. Overnight the ble eding slowed down but continued. Otherwise, Ms. Mcclellan had no complaints this AM. Medications: Current hospital medications: acetaminophen (aka TYLENOL) tablet 650 mg, 650 mg, Oral, Q4H PRN, Avery Almazan MD, Last Dose: 650 mg at 11/17/08 6187 aspirin EC tablet 325 mg, 325 mg, Oral, DAILY, Avery Almazan MD, Last Dose: 325 mg at 0 11/19/08 2200 bisacodyl (aka DULCOLAX) suppository 10 mg, 10 mg, Rectal, BID PRN, Avery Almazan MD bisacodyl EC (aka DULCOLAX) tablet 5 mg, 5 mg, Oral, DAILY PRN, Jeff Garcia MD, Last Dose: 5 mg at 11/11/08 2130 dextrose 5%-lactated ringers IV, , Intravenous, CONTINUOUS, Sam Niño MD, Last Rate : 10 mL/hr (11/10/08 1630) dextrose injection 25 mL, 12.5 g, Intravenous, Q15MIN PRN, PETER Rosas diphenhydrAMINE (aka BENADRYL) capsule 25 mg, 25 mg, Oral, Q8H PRN, Carlin Clemente MD, L ast Dose: 25 mg at 11/17/08 1454 docusate sodium (aka COLACE) capsule 100 mg, 100 mg, Oral, BID PRN, Avery Almazan MD, L ast Dose: 100 mg at 11/14/08 1334 enoxaparin (aka LOVENOX) injection 70 mg, 70 mg, Subcutaneous, BID, Kierra Donohue [facility], Last Dose: 70 mg at 11/20/08 0900 glucagon (aka GLUCAGEN) injection 1 mg, 1 mg, Subcutaneous, Q15MIN PRN, PETER Rosas glucose chewable tablet 15 g, 15 g, Oral, Q15MIN PRN, PETER Rosas heparin lock flush IV 50 Units, 50 Units, Intravenous, PRN, Roc Rae MD, Last Dose : 50 Units at 11/20/08 0425 HYDROmorphone (aka DILAUDID) injection 1-2 mg, 1-2 mg, Intravenous, Q4H PRN, PETER Rosas, Last Dose: 1 mg at 11/13/08 2035 insulin aspart (aka NOVOLOG) injection 1-16 Units, 1-16 Units, Subcutaneous, AC and HS, Pre bobo Reyna MD, Last Dose: 4 Units at 11/20/08 1100 insulin aspart (aka NOVOLOG) injection 10 Units, 10 Units, Subcutaneous, TID AC, Bryce matias MD, Last Dose: 10 Units at 11/20/08 1100 insulin NPH (aka HUMULIN N,NOVOLIN N) injection 26 Units, 26 Units, Subcutaneous, Q12H, Jose Reyna MD, Last Dose: 26 Units at 11/20/08 0850 lisinopril (aka PRINIVIL) tablet 5 mg, 5 mg, Oral, DAILY, PETER Rosas, Last Dose: 5 mg at 11/20/08 0900 medroxyPROGESTERone (aka PROVERA) tablet 20 mg, 20 mg, Oral, DAILY, Shelby Garcia MD, Las t Dose: 20 mg at 11/20/08 0900 metoprolol (aka LOPRESSOR) tablet 25 mg, 25 mg, Oral, BID, Yvette Paula MD, Last Dose: 2 5 mg at 11/20/08 0900 naloxone (aka NARCAN) injection, , Intravenous, PRN, Sam Niño MD ondansetron (aka ZOFRAN) injection 4 mg, 4 mg, Intravenous, Q12H PRN, Avery Almazan MD, Last Dose: 4 mg at 11/12/081999 oxycodone immediate release (aka ROXICODONE) tablet 5-20 mg, 5-20 mg, Oral, Q3H PRN, PETER Rosas, Last Dose: 20 mg at 11/20/08 1230 senna-docusate (aka SENOKOT S) 8.6-50 mg 1 Tab, 1 Tab, Oral, BID, Jeff Garcia MD, La st Dose: 1 Tab at 11/20/08 0900 simethicone chew (aka MYLICON) tablet 80 mg, 80 mg, Oral, TID PRN, Avery Almazan MD simvastatin (aka ZOCOR) tablet 10 mg, 10 mg, Oral, QPM, Avery Almazan MD, Last Dose: 10 mg at 11/19/08 2100 Objective: Systolic (24hrs), Min:102 mmHg, Max:128 mmHg Diastolic (24hrs), Min:63 mmHg, Max:87 mmHg Pulse Min: 68 Max: 96 Temp Min: 36.2 C (97.2 F) Max: 37.1 C (98.8 F) Resp Min: 18 Max: 18 SpO2 Min: 97 % Max: 99 % Intake/Output Summary (Last 24 hours) at 11/20/08 1414 Last data filed at 11/20/08 1400 Gross per 24 hour Intake 1900 ml Output 2225 ml Net -325 ml Physical Exam: General: Alert and oriented, no acute distress Respiratory: CTA bilaterally. Cardiovascular: RRR no murmurs Abdomen: Soft, NTND. Wound: Forearm wound beginning to contract in with granulation tissue. A small amount of p urulent drainage around periphery of wound. Muscle still exposed. Some tissue growth over ul chika artery that is now only partially exposed. The sutures in the extensor fasciotomy site c ontinue to have minimal sanguinous drainage. Wrist sutures c/d/i. Hand fasciotomy sites are beginning to heal by secondary intention with some scabbing. Fingertips with dry gangrene ar e stable. Mobility of hand is stable with limited flexion and extension of fingers. No appar ent intrinsic hand muscle function. Labs: Chemistries: Recent Labs Basename 11/20/0843911/19/0839911/18/08444 NA 139 140 142 K 4.3 3.6 4.1 CL 107 108 108 BICARB 29 27 28 BUN 9 10 8 CR 0.66 0.66 0.66 GLU 103* 100* 65 CA 8.0* 8.5* 8.6 MG 2.2 2.3 2.4 PO4 4.4 4.5 3.3 CBC with diff Recent Labs Basename 11/20/080 11/19/080 11/18/08444 WBC 19.7* 17.4* 21.3* HB 8.3* 9.7* 10.4* HCT 24.9* 28.5* 30.9* PLT 581* 527* 600* NEUTROPERC -- -- -- BANDPCT -- -- -- LYMPHPERC -- -- -- MONOPERC -- -- -- BASOPERC -- -- -- EOSPERC -- -- -- Coag Lab Results Component Value Date INR 1.28 11/09/08 INR 1.38 11/08/08 INR 1.09 11/06/08 CBG's CBG Result ($) Min: 85 Max: 190 LastCBG CBG Result ($): 190 (11/20/08 12:12 PM) CBG Intervention: Medication given (11/20/08 12:12 PM) Assessment and Plan: Kelly Mcclellan is a 53 y.o. female who is on HD# 14, POD #13/12 S/P thrombectomy of brachial , radial and ulnar arteries x2, extensor and flexor forearm fasciotomies and palmar hand fas ciotomies. 1) Gangrene of fingertips: Will go to OR with Ortho tomorrow for amputations. Our team mary l discuss operative plan with ortho team this afternoon. 2) Vaginal bleeding: [employer] team still deciding definitive operative plan. We will be happy t o hold anticoagulation prior to their procedure. H/H drop from 9.7/28.5 to 8.3/24.9. Will ho ld on transfusing. 3) Wound care: Daily dressing changes, wound vac change Q /Wednesday 4) DM: we appreciate management by glycemic team 5) Mobility: continue to work with OT, PT has signed off. 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 No large volume bleeds or herb ts Physical Exam: Last Vitals: BP 109/80 | Pulse 86 | Temp 36.8 C (98.2 F) | Resp 18 | Wt 76.3 kg (168 lb 3.4 oz) | SpO2 99% O2 Delivery Device: None (room air) (11/20/08 4:24 AM) 24 Hour Vital Min/Max: Systolic (24hrs), Min:102 mmHg, Max:150 mmHg Diastolic (24hrs), Min:65 mmHg, Max:91 mmHg Pulse Min: 75 Max: 96 Temp Min: 35.7 C (96.3 F) Max: 37.1 C (98.8 F) Resp Min: 18 Max: 18 SpO2 Min: 97 % Max: 99 % Intake/Output Summary (Last 24 hours) at 11/20/08626 Last data filed at 11/20/08399 Gross per 24 hour Intake 2070 ml Output 2700 ml Net -630 ml CBC with diff last 72 hours (or 3 results) Recent Labs Basename 11/20/0843911/19/0839911/18/08444 WBC 19.7* 17.4* 21.3* HB 8.3* 9.7* 10.4* HCT 24.9* 28.5* 30.9* PLT 581* 527* 600* NEUTROPERC -- -- -- BANDPCT -- -- -- LYMPHPERC -- -- -- MONOPERC -- -- -- BASOPERC -- -- -- EOSPERC -- -- -- Chemistries: Last 72 Hours (or 3 results): Recent Labs Basename 11/20/0843911/19/0839911/18/08444 NA 139 140 142 K 4.3 3.6 4.1 CL 107 108 108 BICARB 29 27 28 BUN 9 10 8 CR 0.66 0.66 0.66 GLU 103* 100* 65 CA 8.0* 8.5* 8.6 MG 2.2 2.3 2.4 PO4 4.4 4.5 3.3 General Appearance: alert, conversive Abdomen: soft, mildly distended; bruising at lovenox injection sites; difficult to palpate fundus Vaginal: fibroid completely prolapsed through cervix. Smooth texture on surface of fibroid . Size of fibroid ~8cm Assessment and Plan: 53yo s/p admission 11/06 for L forearm arterial occulsion after a horsebit. S/p flexor a nd extension compartment fasciotomies and embolectomies 11/08, with planned digit amputations by orthro on 11/21. Pt also has 8cm prolapsing fibroid causing vaginal bleeding and subseque nt anemia. Has required multiple transfusions. On anticoagulation secondary to L forearm ar terial occlusions 1) Vaginal bleeding: continue Provera and pad count. Transfusions per primary team. IR awar e of pt in case of acute vaginal bleed requiring uterine artery embolization 2) Fibroid: pt requires definitive operative management with myomectomy vs hysterectomy. N ot ideal operative candidate while anticoagulated. Will discuss final plan with ortho team due to difficulty in OR coordination. Margie Cates MD, [facility] Aly Delong MD - 11/19/2008 2:13 PM PDT VASCULAR SURGERY PROGRESS NOTE: Attending Physician: Roc Rae MD 11/19/2008 Subjective: No acute events overnight. Pt without complaints this AM. Medications: Current hospital medications: acetaminophen (aka TYLENOL) tablet 650 mg, 650 mg, Oral, Q4H PRN, Avery Almazan MD, Last Dose: 650 mg at 11/17/08 2217 aspirin EC tablet 325 mg, 325 mg, Oral, DAILY, Avery Almazan MD, Last Dose: 325 mg at 0 11/18/08 2200 bisacodyl (aka DULCOLAX) suppository 10 mg, 10 mg, Rectal, BID PRN, Avery Almazan MD bisacodyl EC (aka DULCOLAX) tablet 5 mg, 5 mg, Oral, DAILY PRN, Jeff Garcia MD, Last Dose: 5 mg at 11/11/08 2130 dextrose 5%-lactated ringers IV, , Intravenous, CONTINUOUS, Sam Niño MD, Last Rate : 10 mL/hr (11/10/08 1630) dextrose injection 25 mL, 12.5 g, Intravenous, Q15MIN PRN, PETER Rosas diphenhydrAMINE (aka BENADRYL) capsule 25 mg, 25 mg, Oral, Q8H PRN, Carlin Clemente MD, L ast Dose: 25 mg at 11/17/08 1454 docusate sodium (aka COLACE) capsule 100 mg, 100 mg, Oral, BID PRN, Avery Almazan MD, L ast Dose: 100 mg at 11/14/08 1334 enoxaparin (aka LOVENOX) injection 70 mg, 70 mg, Subcutaneous, BID, Kierra Donohue [facility], Last Dose: 70 mg at 11/19/08 0900 glucagon (aka GLUCAGEN) injection 1 mg, 1 mg, Subcutaneous, Q15MIN PRN, PETER Rosas glucose chewable tablet 15 g, 15 g, Oral, Q15MIN PRN, PETER Rosas heparin lock flush IV 50 Units, 50 Units, Intravenous, PRN, Roc Rae MD, Last Dose : 50 Units at 11/19/08 0353 HYDROmorphone (aka DILAUDID) injection 1-2 mg, 1-2 mg, Intravenous, Q4H PRN, PETER Rosas, Last Dose: 1 mg at 11/13/082034 insulin aspart (aka NOVOLOG) injection 1-16 Units, 1-16 Units, Subcutaneous, AC and HS, Jose Reyna MD, Last Dose: 2 Units at 11/18/08 2100 insulin aspart (aka NOVOLOG) injection 10 Units, 10 Units, Subcutaneous, TID AC, Bryce matias MD, Last Dose: 10 Units at 11/19/08 1200 insulin NPH (aka HUMULIN N,NOVOLIN N) injection 26 Units, 26 Units, Subcutaneous, Q12H, Pre bobo Reyna MD, Last Dose: 26 Units at 11/19/08 1200 lisinopril (aka PRINIVIL) tablet 5 mg, 5 mg, Oral, DAILY, PETER Rosas, Last Dose: 5 mg at 11/19/08 0900 medroxyPROGESTERone (aka PROVERA) tablet 20 mg, 20 mg, Oral, DAILY, Shelby Garcia MD, Las t Dose: 20 mg at 11/19/08899 metoprolol (aka LOPRESSOR) tablet 25 mg, 25 mg, Oral, BID, Yvette Paula MD, Last Dose: 2 5 mg at 11/19/08 0900 naloxone (aka NARCAN) injection, , Intravenous, PRN, Sam Niño MD ondansetron (aka ZOFRAN) injection 4 mg, 4 mg, Intravenous, Q12H PRN, Avery Almazan MD, Last Dose: 4 mg at 11/12/081999 oxycodone immediate release (aka ROXICODONE) tablet 5-20 mg, 5-20 mg, Oral, Q3H PRN, PETER Rosas, Last Dose: 20 mg at 11/19/08 0041 senna-docusate (aka SENOKOT S) 8.6-50 mg 1 Tab, 1 Tab, Oral, BID, Jeff Garcia MD, La st Dose: 1 Tab at 11/19/08 0900 simethicone chew (aka MYLICON) tablet 80 mg, 80 mg, Oral, TID PRN, Avery Almazan MD simvastatin (aka ZOCOR) tablet 10 mg, 10 mg, Oral, QPM, Avery Almazan MD, Last Dose: 10 mg at 11/18/08 2100 Objective: Systolic (24hrs), Min:115 mmHg, Max:156 mmHg Diastolic (24hrs), Min:66 mmHg, Max:91 mmHg Pulse Min: 68 Max: 102 Temp Min: 35.7 C (96.3 F) Max: 37 C (98.6 F) Resp Min: 16 Max: 18 SpO2 Min: 94 % Max: 100 % Intake/Output Summary (Last 24 hours) at 11/19/08 1413 Last data filed at 11/19/08 1400 Gross per 24 hour Intake 2090 ml Output 2485 ml Net -395 ml Physical Exam: General: Alert and oriented, no acute distress Respiratory: CTA bilaterally. Cardiovascular: RRR no murmurs Abdomen: Soft, NTND. Extremities: Warm and well perfused, wound vac in place on left forearm. Fingertips 2-5 wi th demarcated dry gangrene. Stable edema to entire LUE especially the forearm and dorsum of the hand. Forearm nontender to palpation. Some weeping sanguinous fluid through extensor fas ciotomy sutures. Stable flexor and extensor motor function of left fingers. Palpable radial pulses bilaterally. Labs: Chemistries: Recent Labs Basename 11/19/08 0400 11/18/08 0445 11/17/08 0429 NA 140 142 139 K 3.6 4.1 4.1 CL 108 108 105 BICARB 27 28 27 BUN 10 8 9 CR 0.66 0.66 0.65 GLU 100* 65 195* CA 8.5* 8.6 8.3* MG 2.3 2.4 2.3 PO4 4.5 3.3 2.9 CBC with diff Recent Labs Basename 11/19/08 0400 11/18/08 0445 11/17/08 0429 WBC 17.4* 21.3* 15.1* HB 9.7* 10.4* 9.9* HCT 28.5* 30.9* 29.2* PLT 527* 600* 502* NEUTROPERC -- -- -- BANDPCT -- -- -- LYMPHPERC -- -- -- MONOPERC -- -- -- BASOPERC -- -- -- EOSPERC -- -- -- Coag Lab Results Component Value Date INR 1.28 11/09/08 INR 1.38 11/08/08 INR 1.09 11/06/08 CBG's CBG Result ($) Min: 83 Max: 185 LastCBG CBG Result ($): 185 (11/19/08 12:05 PM) CBG Intervention: Medication given (11/19/08 12:05 PM) Assessment and Plan: Kelly Mcclellan is a 53 y.o. female who is on HD# 13, POD #12/11 S/P thrombectomy of brachial , radial and ulnar arteries x2, extensor and flexor forearm fasciotomies and palmar hand fas ciotomies. 1) Gangrene: Plan to go to OR with ortho on Wednesday for amputation of the index, middle, ring, and little fingers at the middle phalanx and fasciotomy washout. 2) Vaginal bleeding: Will defer to drum builder for plan. Will continue to watch crits and transfus e as needed. For gynecologic proceedure, would just give last dose lovenox 24hrs prior to the procedur e, or transition to heparin gtt, holding 4hrs prior to procedure. 3) Mobility: Continue to work with OT for left upper extremity movements. 4) DM: we appreciate management by glycemic team. 5) Plan for Wound vac change tomorrow. 6) Leukocytosis- Stable/ improved. If fevers or wound change would add antibiotic cover age for skin mary. Nasra Lamar, MICHELLE Patient seen and examined with MSIV above and note has been edited to reflect my examinatio n and plan. ALY FLETCHER MD [facility] [id number] [facility] [address] Ulysses Black MD - 11/19/2008 9:56 AM PDT Orthopaedic Progress Note: Subjective: No new events, pain controlled. Objective: Wt 73.7 kg (162 lbs 7.7 oz)( < 3 %ile), BP 150/91, Pulse 86, Temperature 35.7 C (96.3 F ), RR 18, SpO2 99%. 24 hour Vitals min/max :Temp Min: 36.4 C (97.5 F) Max: 37.2 C (99 F) [place] present and holding suction Left upper extremity - Black, avascular finger tips to about the level of the middle phalanx. Avascular over dist al tip of thumb. Palm appears to have cap refill. Dressing: fasciotomy site no purulence Motor: Deltoid Biceps Triceps Wrist Ext Digit Abd Shaft Headman Intact Intact Intact Intact 0 Intact - = Not examined Pt is able to flex at digits and extend, but intrinsic hand function not present Sensory: Intact to light touch palm and dorsum of hand. No sens in area of necrosis. Vascular: Palpable radial pulse, capillary refill < 1 second in palm. Avascular at tips of fingers a nd thumb. Assesment/Plan: POD# 7 Status post Fasciotomy forearm and hand. Would rec that pt con't with daily dressing changes. Plan for amputation of the index, middle, ring, and little fingers at the middle p halanx this Wed. Internet Mer[employer] would like to coordinate procedures, however, will be the th ird case on Wed and we have a fourth case to follow her and will be unable to have [employer]chant sarai pino to follow. Bryce Nath MD - 8:11 AM PDT CLINICAL HOSPITALIST SERVICE ([facility])-PROGRESS NOTE Glycemic team follow up: HOSPITAL DAY: 13 Author: BRYCE REYNA MD Subjective: Ms. Mcclellan is feeling better. She is waiting for her surgery on Wednesday. She still has some vaginal bleeding. Denies chest pain or shortness of breath Physical Exam: Vitals (Most recent): Blood pressure 150/91, pulse 86, temperature 35.7 C (96.3 F), resp. rate 18, weight 73.7 kg (162 lb 7.7 oz), SpO2 99%. Intake/Output Summary (Last 24 hours) at 11/19/08 0812 Last data filed at 11/19/08 0500 Gross per 24 hour Intake 2200 ml Output 2735 ml Net -535 ml General : Alert, not in acute distress Cardiovascular: 1st and 2nd heart sounds normal with regular rhythm. Respiratory: Normal vesicular breath sounds b/l. Gastrointestinal: Abdomen is soft, BS+ Musculoskeletal: No peripheral edema. Left arm fingers-gangrenous, dry Studies:Chemistries: Last 72 Hours (or 3 results): Recent Labs Basename 11/19/08 0400 11/18/0844411/17/08428 NA 140 142 139 K 3.6 4.1 4.1 CL 108 108 105 BICARB 27 28 27 BUN 10 8 9 CR 0.66 0.66 0.65 GLU 100* 65 195* CA 8.5* 8.6 8.3* MG 2.3 2.4 2.3 PO4 4.5 3.3 2.9 CBC with diff last 72 hours (or 3 results) Recent Labs Basename 11/19/08 0400 11/18/0844411/17/08428 WBC 17.4* 21.3* 15.1* HB 9.7* 10.4* 9.9* HCT 28.5* 30.9* 29.2* PLT 527* 600* 502* NEUTROPERC -- -- -- BANDPCT -- -- -- LYMPHPERC -- -- -- MONOPERC -- -- -- BASOPERC -- -- -- EOSPERC -- -- -- Lab Results Component Value Date GLU 100 11/19/08 GLU 65 11/18/08 GLU 195 11/17/08 Current Meds: acetaminophen (aka TYLENOL) tablet 650 mg, 650 mg, Oral, Q4H PRN aspirin EC tablet 325 mg, 325 mg, Oral, DAILY bisacodyl (aka DULCOLAX) suppository 10 mg, 10 mg, Rectal, BID PRN bisacodyl EC (aka DULCOLAX) tablet 5 mg, 5 mg, Oral, DAILY PRN dextrose 5%-lactated ringers IV, , Intravenous, CONTINUOUS dextrose injection 25 mL, 12.5 g, Intravenous, Q15MIN PRN diphenhydrAMINE (aka BENADRYL) capsule 25 mg, 25 mg, Oral, Q8H PRN docusate sodium (aka COLACE) capsule 100 mg, 100 mg, Oral, BID PRN enoxaparin (aka LOVENOX) injection 70 mg, 70 mg, Subcutaneous, BID glucagon (aka GLUCAGEN) injection 1 mg, 1 mg, Subcutaneous, Q15MIN PRN glucose chewable tablet 15 g, 15 g, Oral, Q15MIN PRN heparin lock flush IV 50 Units, 50 Units, Intravenous, PRN HYDROmorphone (aka DILAUDID) injection 1-2 mg, 1-2 mg, Intravenous, Q4H PRN insulin aspart (aka NOVOLOG) injection 1-16 Units, 1-16 Units, Subcutaneous, AC and HS insulin aspart (aka NOVOLOG) injection 10 Units, 10 Units, Subcutaneous, TID AC insulin aspart (aka NOVOLOG) injection 12 Units, 12 Units, Subcutaneous, TID AC insulin NPH (aka HUMULIN N,NOVOLIN N) injection 28 Units, 28 Units, Subcutaneous, Q12H lisinopril (aka PRINIVIL) tablet 5 mg, 5 mg, Oral, DAILY medroxyPROGESTERone (aka PROVERA) tablet 20 mg, 20 mg, Oral, DAILY metoprolol (aka LOPRESSOR) tablet 25 mg, 25 mg, Oral, BID naloxone (aka NARCAN) injection, , Intravenous, PRN ondansetron (aka ZOFRAN) injection 4 mg, 4 mg, Intravenous, Q12H PRN oxycodone immediate release (aka ROXICODONE) tablet 5-20 mg, 5-20 mg, Oral, Q3H PRN senna-docusate (aka SENOKOT S) 8.6-50 mg 1 Tab, 1 Tab, Oral, BID simethicone chew (aka MYLICON) tablet 80 mg, 80 mg, Oral, TID PRN simvastatin (aka ZOCOR) tablet 10 mg, 10 mg, Oral, QPM Assessment/Plan: 1. Type 2 DM: Newly diagnosed with HbA1C 14% Diet : Diabetic diet CBGs (24h) : AM CB, maximum: 143 Target glucose : Fasting <140 and Random <180 (Non-ICU patients) Home Rx : None Current Rx : NPH insulin 28 units BID and novolog 10 units TID BMP : Hypokalemia corrected Hypoglycemia : None Recommendations: CBGs again under goal. Goal is to bring the insulin requirements down to about 30 units. Wi ll try reducing NPH to 26 units BRYCE REYNA MD [facility] 11[facility] Clinical Hospitalist Service [facility] EPIC DEPARTMENT: Hosp ([facility])- [phone] Place of Service: - [id number] [facility] [phone] CPT: 90118 Subsequent Visit Prob Focused/Low Complexity 15 min Total time spent on this encounter: 18 min Avery Matias MD - 0 11/19/2008 6:25 AM PDTI saw and evaluated the patient. I agree with the findings and the pl an of care as documented in the resident s note. I saw the patient at another time this evening, and have separate documentation AVERY LEE MD [place] [id number] [id number] [place] [address] Emily Giraldo MD - 11/19/2008 6:25 AM PDT INPATIENT PROGRESS NOTE Hospital Day:13 Author; EMILY CARDONA MD Attending Physician: Roc Rae MD Interval Hx: 1 epidsode of bleeding last night with 10 cc of blood loss measured. Pt report s no pain, no dizziness, sob, chest pain. Some nausea overnight without emesis. Physical Exam: Last Vitals: BP 115/66 | Pulse 68 | Temp 35.9 C (96.6 F) | Resp 18 | Wt 73.7 kg (162 lb 7.7 oz) | SpO2 97% O2 Delivery Device: None (room air) (11/19/08 3:26 AM) 24 Hour Vital Min/Max: Systolic (24hrs), Min:114 mmHg, Max:156 mmHg Diastolic (24hrs), Min:66 mmHg, Max:88 mmHg Pulse Min: 68 Max: 102 Temp Min: 35.9 C (96.6 F) Max: 37 C (98.6 F) Resp Min: 16 Max: 18 SpO2 Min: 94 % Max: 100 % Intake/Output Summary (Last 24 hours) at 11/19/08 0625 Last data filed at 11/19/08 0500 Gross per 24 hour Intake 2200 ml Output 2735 ml Net -535 ml General Appearance: NAD Respiratory: CTAB Cardiovascular: RRR Gastrointestinal: bruised from lovanox injections, soft, obese, nontender Musculoskeletal: 1+ edema in lower ext bilaterally, no erythema, tenderness. Warm and well perfused. Upper left ext with bandaging clean and dry, fingertips necrotic. Neurologic: A&Ox3 Labs: Component Latest Reference Range 11/18/2008 11/19/2008 GLUCOSE, PLASMA 60 - 99 mg/dL 65 100 (H) BUN 6 - 20 mg/dL 8 10 CREATININE 0.60 - 1.10 mg/dL 0.66 0.66 SODIUM 134 - 143 mmol/L 142 140 POTASSIUM 3.4 - 5.0 mmol/L 4.1 3.6 CHLORIDE 97 - 108 mmol/L 108 108 CALCIUM 8.6 - 10.2 mg/dL 8.6 8.5 (L) CO2 23 - 31 mmol/L 28 27 RED CELL COUNT 4.00 - 5.20 M/cu mm 3.51 (L) 3.26 (L) HEMOGLOBIN 12.0 - 16.0 g/dL 10.4 (L) 9.7 (L) HEMATOCRIT 36.0 - 46.0 % 30.9 (L) 28.5 (L) MCV 80.0 - 96.0 fL 88.0 87.4 MCHC 33.4 - 35.5 g/dL 33.7 33.9 RDW 11.5 - 15.0 % 16.7 (H) 16.8 (H) PLATELET COUNT 150 - 400 K/cu mm 600 (H) 527 (H) WHITE CELL COUNT 4.4 - 11.0 K/cu mm 21.3 (H) 17.4 (H) MAGNESIUM, PLASMA 1.8 - 2.5 mg/dL 2.4 2.3 PHOSPHORUS, PLASMA 2.4 - 4.7 mg/dL 3.3 4.5 Assessment and Plan: 53yo HD12 admitted for L forearm arterial occulsion after a horsebit. POD#11 s/p flexo r and extension compartment fasciotomies and embolectomies, with planned digit amputation by orthro on 11/21. Pt also has 8cm prolapsing fibroid causing vaginal bleeding. Had required multiple transfusions. 1) Vaginal bleeding: continue Provera and pad count. Transfusions per primary team. 2) Fibroid: planned resection on 11/21 when pt goes to OR for amputation. Coordinate with Or tho today. Planned to switch from Lovanox to heparin today for OR reversal. air, MD Bryce - 0 11/18/2008 3:33 PM PDT HOSPITALIST INPATIENT PROGRESS NOTE Hospital Day:12 Author; BRYCE REYNA MD Attending Physician: Roc Rae MD Interval Hx: Ms. Mcclellan is eating 100%- no nausea or vomiting. No abdominal pain or chest pain Meds: acetaminophen (aka TYLENOL) tablet 650 mg, 650 mg, Oral, Q4H PRN aspirin EC tablet 325 mg, 325 mg, Oral, DAILY bisacodyl (aka DULCOLAX) suppository 10 mg, 10 mg, Rectal, BID PRN bisacodyl EC (aka DULCOLAX) tablet 5 mg, 5 mg, Oral, DAILY PRN dextrose 5%-lactated ringers IV, , Intravenous, CONTINUOUS dextrose injection 25 mL, 12.5 g, Intravenous, Q15MIN PRN diphenhydrAMINE (aka BENADRYL) capsule 25 mg, 25 mg, Oral, Q8H PRN docusate sodium (aka COLACE) capsule 100 mg, 100 mg, Oral, BID PRN enoxaparin (aka LOVENOX) injection 70 mg, 70 mg, Subcutaneous, BID glucagon (aka GLUCAGEN) injection 1 mg, 1 mg, Subcutaneous, Q15MIN PRN glucose chewable tablet 15 g, 15 g, Oral, Q15MIN PRN heparin lock flush IV 50 Units, 50 Units, Intravenous, PRN HYDROmorphone (aka DILAUDID) injection 1-2 mg, 1-2 mg, Intravenous, Q4H PRN insulin aspart (aka NOVOLOG) injection 1-16 Units, 1-16 Units, Subcutaneous, AC and HS insulin aspart (aka NOVOLOG) injection 10 Units, 10 Units, Subcutaneous, TID AC insulin aspart (aka NOVOLOG) injection 12 Units, 12 Units, Subcutaneous, TID AC insulin NPH (aka HUMULIN N,NOVOLIN N) injection 28 Units, 28 Units, Subcutaneous, Q12H lisinopril (aka PRINIVIL) tablet 5 mg, 5 mg, Oral, DAILY medroxyPROGESTERone (aka PROVERA) tablet 20 mg, 20 mg, Oral, DAILY metoprolol (aka LOPRESSOR) tablet 25 mg, 25 mg, Oral, BID naloxone (aka NARCAN) injection, , Intravenous, PRN ondansetron (aka ZOFRAN) injection 4 mg, 4 mg, Intravenous, Q12H PRN oxycodone immediate release (aka ROXICODONE) tablet 5-20 mg, 5-20 mg, Oral, Q3H PRN senna-docusate (aka SENOKOT S) 8.6-50 mg 1 Tab, 1 Tab, Oral, BID simethicone chew (aka MYLICON) tablet 80 mg, 80 mg, Oral, TID PRN simvastatin (aka ZOCOR) tablet 10 mg, 10 mg, Oral, QPM Physical Exam: Last Vitals: BP 99/67 | Pulse 73 | Temp 36.3 C (97.3 F) | Resp 16 | Wt 73.7 kg (162 lb 7.7 oz) | SpO2 97% O2 Delivery Device: None (room air) (11/18/08 4:46 AM) Intake/Output Summary (Last 24 hours) at 11/18/08 1533 Last data filed at 11/18/08 1400 Gross per 24 hour Intake 1560 ml Output 2650 ml Net -1090 ml General Appearance: Alert and Awake, not in acute distress Respiratory: Equal air entry b/l, Normal vesicular breath sounds b/l Cardiovascular: 1st and 2nd heart sounds regular rate and rhythm Gastrointestinal: Soft, Nondistended, Nontender, no masses palpable, Bowel sounds+ Musculoskeletal: No pedal edema. Left arm covered with dressing Skin: No Rashes. LABS REVIEWED: Chemistries: Last 72 Hours (or 3 results): Recent Labs Basename 11/18/0844411/17/0842811/16/0816 NA 142 139 139 K 4.1 4.1 4.1 CL 108 105 105 BICARB 28 27 28 BUN 8 9 8 CR 0.66 0.65 0.57* CA 8.6 8.3* 8.4* MG 2.4 2.3 2.3 PO4 3.3 2.9 4.0 CBC with diff last 72 hours (or 3 results) Recent Labs Basename 11/18/0844411/17/0842811/16/08 0516 WBC 21.3* 15.1* 19.2* HB 10.4* 9.9* 10.8* HCT 30.9* 29.2* 31.7* PLT 600* 502* 513* NEUTROPERC -- -- -- BANDPCT -- -- -- LYMPHPERC -- -- -- MONOPERC -- -- -- BASOPERC -- -- -- EOSPERC -- -- -- CBG Result ($) Min: 106 Max: 280 LastCBG CBG Result ($): 121 (11/18/08 11:55 AM) CBG Intervention: Medication given (11/14/08 11:00 AM) Assessment and Plan: 1) Type 2 DM: Newly diagnosed with HbA1C 14% Diet : Diabetic diet CBGs (24h) : AM CB, maximum: 121 Target glucose : Fasting <140 and Random <180 (Non-ICU patients) Home Rx : None Current Rx : NPH insulin 28 units BID and novolog 10 units TID BMP : Hypokalemia corrected Hypoglycemia : None Recommendations: Ms. Mcclellan's CBGs are all within goal today- will continue the same regimen. BRYCE REYNA MD Floral Managerautomatic car wash attendant Clinical Hospitalist Service Division of Hospital Medicine Department of Medicine [facility] EPIC DEPARTMENT: Hosp ([facility])- [phone] Place of Service: IP - [id number] Modifiers:GC Resident Involved: No CPT: 64856 Subsequent Visit Prob Focused/Low Complexity 15 min Time Spent: 20 min udde Md, Nasra N - 11/18/2008 9:20 AM PDT VASCULAR SURGERY PROGRESS NOTE: Attending Physician: Roc Rae MD 11/18/2008 Subjective: No acute events overnight. Pt continues to bleed vaginally. Medications: Current hospital medications: acetaminophen (aka TYLENOL) tablet 650 mg, 650 mg, Oral, Q4H PRN, Avery Almazan MD, Last Dose: 650 mg at 11/17/08 2217 aspirin EC tablet 325 mg, 325 mg, Oral, DAILY, Avery Almazan MD, Last Dose: 325 mg at 0 11/17/08 2200 bisacodyl (aka DULCOLAX) suppository 10 mg, 10 mg, Rectal, BID PRN, Avery Almazan MD bisacodyl EC (aka DULCOLAX) tablet 5 mg, 5 mg, Oral, DAILY PRN, Jeff Garcia MD, Last Dose: 5 mg at 11/11/08 2130 dextrose 5%-lactated ringers IV, , Intravenous, CONTINUOUS, Sam Niño MD, Last Rate : 10 mL/hr (11/10/08 1630) dextrose injection 25 mL, 12.5 g, Intravenous, Q15MIN PRN, PETER Rosas diphenhydrAMINE (aka BENADRYL) capsule 25 mg, 25 mg, Oral, Q8H PRN, Carlin Clemente MD, L ast Dose: 25 mg at 11/17/08 1454 docusate sodium (aka COLACE) capsule 100 mg, 100 mg, Oral, BID PRN, Avery Almazan MD, L ast Dose: 100 mg at 11/14/08 1334 enoxaparin (aka LOVENOX) injection 70 mg, 70 mg, Subcutaneous, BID, Kierra Donohue [facility], Last Dose: 70 mg at 11/18/08 0841 glucagon (aka GLUCAGEN) injection 1 mg, 1 mg, Subcutaneous, Q15MIN PRN, PETER Rosas glucose chewable tablet 15 g, 15 g, Oral, Q15MIN PRN, Lajana Tracy, GNP heparin lock flush IV 50 Units, 50 Units, Intravenous, PRN, Roc Rae MD, Last Dose : 50 Units at 11/17/08 0512 HYDROmorphone (aka DILAUDID) injection 1-2 mg, 1-2 mg, Intravenous, Q4H PRN, PETER Rosas, Last Dose: 1 mg at 11/13/082034 insulin aspart (aka NOVOLOG) injection 1-16 Units, 1-16 Units, Subcutaneous, AC and HS, Pre bobo Reyna MD, Last Dose: 5 Units at 11/17/08 2100 insulin aspart (aka NOVOLOG) injection 10 Units, 10 Units, Subcutaneous, TID AC, Bryce matias MD, Last Dose: 10 Units at 11/18/08 0843 insulin aspart (aka NOVOLOG) injection 12 Units, 12 Units, Subcutaneous, TID AC, PETER Nazario, Last Dose: 12 Units at 11/17/08 0700 insulin NPH (aka HUMULIN N,NOVOLIN N) injection 28 Units, 28 Units, Subcutaneous, Q12H, Jose Reyna MD, Last Dose: 28 Units at 11/18/08 0843 lisinopril (aka PRINIVIL) tablet 5 mg, 5 mg, Oral, DAILY, PETER Rosas, Last Dose: 5 mg at 11/18/08 0841 medroxyPROGESTERone (aka PROVERA) tablet 20 mg, 20 mg, Oral, DAILY, Shelby Garcia MD, Las t Dose: 20 mg at 11/18/08 0841 metoprolol (aka LOPRESSOR) tablet 25 mg, 25 mg, Oral, BID, Yvette Paula MD, Last Dose: 2 5 mg at 11/18/08 0841 naloxone (aka NARCAN) injection, , Intravenous, PRN, Sam Niño MD ondansetron (aka ZOFRAN) injection 4 mg, 4 mg, Intravenous, Q12H PRN, Avery Almazan MD, Last Dose: 4 mg at 11/12/081999 oxycodone immediate release (aka ROXICODONE) tablet 5-20 mg, 5-20 mg, Oral, Q3H PRN, PETER Rosas, Last Dose: 20 mg at 11/17/08 2217 senna-docusate (aka SENOKOT S) 8.6-50 mg 1 Tab, 1 Tab, Oral, BID, Jeff Garcia MD, La st Dose: 1 Tab at 11/18/08 0841 simethicone chew (aka MYLICON) tablet 80 mg, 80 mg, Oral, TID PRN, Avery Almazan MD simvastatin (aka ZOCOR) tablet 10 mg, 10 mg, Oral, QPM, Avery Almazan MD, Last Dose: 10 mg at 11/17/08 2100 Objective: Systolic (24hrs), Min:99 mmHg, Max:147 mmHg Diastolic (24hrs), Min:67 mmHg, Max:96 mmHg Pulse Min: 73 Max: 92 Temp Min: 36.2 C (97.2 F) Max: 37.1 C (98.8 F) Resp Min: 16 Max: 20 SpO2 Min: 96 % Max: 98 % Intake/Output Summary (Last 24 hours) at 11/18/08 0921 Last data filed at 11/18/08 0900 Gross per 24 hour Intake 1335 ml Output 2600 ml Net -1265 ml Physical Exam: General: Alert and oriented, no acute distress Respiratory: CTA bilaterally. Cardiovascular: RRR no murmurs Abdomen: Soft, NTND. Extremities: Warm and well perfused, wound vac in place on left forearm. Fingertips 2-5 wi th demarcated dry gangrene. Stable edema to entire LUE especially the forearm and dorsum of the hand. Forearm nontender to palpation. There is some weeping sanguinous fluid through ext ensor fasciotomy sutures. Stable flexor and extensor motor function of left fingers. Palpab le radial pulses bilaterally. Labs: Chemistries: Recent Labs Basename 11/18/08 0445 11/17/08 0429 11/16/08 0516 NA 142 139 139 K 4.1 4.1 4.1 CL 108 105 105 BICARB 28 27 28 BUN 8 9 8 CR 0.66 0.65 0.57* GLU 65 195* 71 CA 8.6 8.3* 8.4* MG 2.4 2.3 2.3 PO4 3.3 2.9 4.0 CBC with diff Recent Labs Basename 11/18/08 0445 11/17/08 0429 11/16/08 0516 WBC 21.3* 15.1* 19.2* HB 10.4* 9.9* 10.8* HCT 30.9* 29.2* 31.7* PLT 600* 502* 513* NEUTROPERC -- -- -- BANDPCT -- -- -- LYMPHPERC -- -- -- MONOPERC -- -- -- BASOPERC -- -- -- EOSPERC -- -- -- Coag Lab Results Component Value Date INR 1.28 11/09/08 INR 1.38 11/08/08 INR 1.09 11/06/08 CBG's CBG Result ($) Min: 106 Max: 280 LastCBG CBG Result ($): 106 (11/18/08 7:47 AM) CBG Intervention: Medication given (11/14/08 11:00 AM) Assessment and Plan: Kelly Mcclellan is a 53 y.o. female who is on HD# 12, POD #11/10 S/P thrombectomy of brachial , radial and ulnar arteries x2, extensor and flexor forearm fasciotomies and palmar hand fas ciotomies. 1) Digital dry gangrene: currently noninfectious. Plan to go to OR with ortho on Wed for f ingertip amputation and washout of hand fasciotomy sites. 2) Vaginal bleeding: Hct currently stable, will continue to follow. [employer] plans to perform va ginal myomectomy of fibroid intraoperatively on Wed. 3) Wound care: Will continue daily wound care of hand fasciotomies with xeroform. Next woun d vac change Tu. 4) Mobility: Continue hand OT MICHELLE Mai Nataliia Salazar MD - 11/18/2008 4:56 AM PDTFormatting of this note might be different from the origina l. INPATIENT PROGRESS NOTE Hospital Day:12 Author; TALHA QUINN MD Attending Physician: DIONISIO RADER MD Interval Hx: Doing well. Ongoing VB of 1 pads /day. Pt notes this is similar to pre-admissi on irregular vaginal bleeding of 0.5 - 1 pad per day. Physical Exam: Last Vitals: BP 99/67 | Pulse 73 | Temp 36.3 C (97.3 F) | Resp 16 | Wt 73.7 kg (162 lb 7.7 oz) | SpO2 97% O2 Delivery Device: None (room air) (11/18/08 4:46 AM) 24 Hour Vital Min/Max: Systolic (24hrs), Min:99 mmHg, Max:147 mmHg Diastolic (24hrs), Min:67 mmHg, Max:96 mmHg Pulse Min: 73 Max: 92 Temp Min: 36.2 C (97.2 F) Max: 37.1 C (98.8 F) Resp Min: 16 Max: 20 SpO2 Min: 96 % Max: 100 % Intake/Output Summary (Last 24 hours) at 11/18/08 0457 Last data filed at 11/18/08 0400 Gross per 24 hour Intake 1710 ml Output 2250 ml Net -540 ml General Appearance: NAD Respiratory: CTAB Cardiovascular: normal rate, regular rhythm Gastrointestinal: soft, NT, obese Ext: wound vac in left arm, left hand heavily bandaged CBC with diff last 72 hours (or 3 results) Recent Labs Basename 11/18/08 0445 11/17/08 0429 11/16/08 0516 WBC 21.3* 15.1* 19.2* HB 10.4* 9.9* 10.8* HCT 30.9* 29.2* 31.7* PLT 600* 502* 513* NEUTROPERC -- -- -- BANDPCT -- -- -- LYMPHPERC -- -- -- MONOPERC -- -- -- BASOPERC -- -- -- EOSPERC -- -- -- Assessment and Recommendations: 51 yo with menometrorrhagia secondary to prolapsing uterine fibroid and chronic antico agulation. Endometrial biopsy negative for hyperplasia or dysplasia. Hct Stable. 1. Minimal ongoing VB. Recommended pad counts in order to quantify amount of vaginal bleed ing. Some bleeding will be expected, especially with voids. Will defer transfusion per prima ry team. Continue daily Provera. 2. At this point, patient is not a surgical candidate for hysterectomy due to her anticoagu lation.Will hold discussion with the [employer] attending (Dr. Fritz Lee the week of 11/19-11/24) t o discuss possibility of coordinating surgery with orthopedics on Wednesday as long as patie nt could be transitioned to heparin drip from Lovenox and normal coags confirmed prior to flores rgery if possible. Anticipated surgical procedure would be examination under anesthesia with amputation of prolapsing uterine fibroid via a vaginal approcch vs hysterectomy. Will discu ss plan further with [employer] team on Wednesday. 3. Interventional Radiology notified about patient in the event patient has acute episode o f vaginal bleeding. Esther Gayle, Yasmeen Green 11/17/2008 5:23 PM PDTFormatting of this note might be different from the [facility] INPATIENT PROGRESS NOTE Hospital Day: Author; RENALDO ADRIAN MD Attending Physician: Dionisio Rader MD Interval Hx: Pt seen earlier this am in her room. Pt denies vaginal bleeding except scant spotting when she voids. Did not end up having surgery yesterday. Feeling well otherwise. Does not recall that she has a large prolapsing fibroid. Physical Exam: Last Vitals: BP 144/96 | Pulse 92 | Temp 36.8 C (98.2 F) | Resp 18 | Wt 73.7 kg (162 lb 7.7 oz) | SpO2 97% O2 Delivery Device: None (room air) (11/17/08 4:00 PM) 24 Hour Vital Min/Max: Systolic (24hrs), Min:122 mmHg, Max:151 mmHg Diastolic (24hrs), Min:73 mmHg, Max:98 mmHg Pulse Min: 74 Max: 92 Temp Min: 36.6 C (97.9 F) Max: 37.1 C (98.8 F) Resp Min: 18 Max: 20 SpO2 Min: 97 % Max: 100 % Intake/Output Summary (Last 24 hours) at 11/17/08 1724 Last data filed at 11/17/08 1400 Gross per 24 hour Intake 1655 ml Output 2426 ml Net -771 ml General Appearance: Alert, somewhat confused and tangential, no acute distress Pelvic Exam: Deferred Lab Results Component Value Date WBC 15.1 11/17/08 HB 9.9 11/17/08 HCT 29.2 11/17/08 PLT 502 11/17/08 MCV 88.4 11/17/08 RDW 16.4 11/17/08 Assessment and Recommendations: 51 yo with menometrorrhagia secondary to prolapsing uterine fibroid and chronic antico agulation. Endometrial biopsy negative for hyperplasia or dysplasia. 1. Pad counts in order to quantify amount of vaginal bleeding. Scant bleeding with voiding will be expected. Will defer transfusion per primary team. Continue daily Provera. 2. At this point, patient is not a surgical candidate due to her anticoagulation. After fur ther discussion with Drs. Lo Castro and Anni Matson, would be willing to coordinate surgery with orthopedics on Wednesday as long as patient could be transitioned to heparin dr ip from Lovenox. Would discontinue heparin drip and confirm normal coags prior to surgery if possible. Most likely her surgical procedure would be amputation of prolapsing uterine fibr oid. [employer] surgery team has not been coordinated yet. Would appreciate notification of OR ti mike. Gynecology Attending for the week will be Avery Lee. Will discuss plan further with team on Wednesday. 3. Interventional Radiology notified about patient in the event patient has acute episode o f vaginal bleeding. Jimenez Gayle, Nasra Cerda - 11/17/2008 11:38 AM PDT VASCULAR SURGERY PROGRESS NOTE: Attending Physician: Roc Rae MD 11/17/2008 Subjective: No acute events overnight. Pt was planned to go to the OR with ortho yesterday but due to h igh volume of cases will be rescheduled for Wednesday with [employer] and Ortho. States she only us ed 2 feminine pads for her vaginal bleeding yesterday and that the pads were not saturated. Pt c/o some itching on her upper arms overnight. Medications: Current hospital medications: acetaminophen (aka TYLENOL) tablet 650 mg, 650 mg, Oral, Q4H PRN, Avery Almazan MD, Last Dose: 650 mg at 11/17/08 0407 aspirin EC tablet 325 mg, 325 mg, Oral, DAILY, Avery Almazan MD, Last Dose: 325 mg at 0 11/16/08 2200 bisacodyl (aka DULCOLAX) suppository 10 mg, 10 mg, Rectal, BID PRN, Avery Almazan MD bisacodyl EC (aka DULCOLAX) tablet 5 mg, 5 mg, Oral, DAILY PRN, Jeff Garcia MD, Last Dose: 5 mg at 11/11/08 2130 dextrose 5%-lactated ringers IV, , Intravenous, CONTINUOUS, Sam Niño MD, Last Rate : 10 mL/hr (11/10/08 1630) dextrose injection 25 mL, 12.5 g, Intravenous, Q15MIN PRN, PETER Rosas docusate sodium (aka COLACE) capsule 100 mg, 100 mg, Oral, BID PRN, Avery Almazan MD, L ast Dose: 100 mg at 11/14/08 1334 enoxaparin (aka LOVENOX) injection 70 mg, 70 mg, Subcutaneous, BID, Kierra Donohue, [facility], Last Dose: 70 mg at 11/17/08 0900 glucagon (aka GLUCAGEN) injection 1 mg, 1 mg, Subcutaneous, Q15MIN PRN, PETER Rosas glucose chewable tablet 15 g, 15 g, Oral, Q15MIN PRN, PETER Rosas heparin lock flush IV 50 Units, 50 Units, Intravenous, PRN, Roc Rae MD, Last Dose : 50 Units at 11/17/08 0512 HYDROmorphone (aka DILAUDID) injection 1-2 mg, 1-2 mg, Intravenous, Q4H PRN, PETER Rosas, Last Dose: 1 mg at 11/13/08 2035 insulin aspart (aka NOVOLOG) injection 1-16 Units, 1-16 Units, Subcutaneous, AC and HS, Jose Reyna MD, Last Dose: 4 Units at 11/17/08 0700 insulin aspart (aka NOVOLOG) injection 10 Units, 10 Units, Subcutaneous, TID AC, Bryce matias MD insulin aspart (aka NOVOLOG) injection 12 Units, 12 Units, Subcutaneous, TID AC, PETER Nazario, Last Dose: 12 Units at 11/17/08 0700 insulin NPH (aka HUMULIN N,NOVOLIN N) injection 28 Units, 28 Units, Subcutaneous, Q12H, Pre bobo Reyna MD lisinopril (aka PRINIVIL) tablet 5 mg, 5 mg, Oral, DAILY, PETER Rosas, Last Dose: 5 mg at 11/17/08 09 medroxyPROGESTERone (aka PROVERA) tablet 20 mg, 20 mg, Oral, DAILY, Shelby Garcia MD, Las t Dose: 20 mg at 11/17/08899 metoprolol (aka LOPRESSOR) tablet 25 mg, 25 mg, Oral, BID, Yvette Paula MD, Last Dose: 2 5 mg at 11/17/08899 naloxone (aka NARCAN) injection, , Intravenous, PRN, Sam Niño MD ondansetron (aka ZOFRAN) injection 4 mg, 4 mg, Intravenous, Q12H PRN, Avery Almazan MD, Last Dose: 4 mg at 11/12/081999 oxycodone immediate release (aka ROXICODONE) tablet 5-20 mg, 5-20 mg, Oral, Q3H PRN, PETER Rosas, Last Dose: 20 mg at 11/17/08 0408 senna-docusate (aka SENOKOT S) 8.6-50 mg 1 Tab, 1 Tab, Oral, BID, Jeff Garcia MD, La st Dose: 1 Tab at 11/17/08899 simethicone chew (aka MYLICON) tablet 80 mg, 80 mg, Oral, TID PRN, Avery Almazan MD simvastatin (aka ZOCOR) tablet 10 mg, 10 mg, Oral, QPM, Avery Almazan MD, Last Dose: 10 mg at 11/16/08 2100 Objective: Systolic (24hrs), Min:122 mmHg, Max:168 mmHg Diastolic (24hrs), Min:73 mmHg, Max:98 mmHg Pulse Min: 73 Max: 91 Temp Min: 36.6 C (97.9 F) Max: 37.5 C (99.5 F) Resp Min: 18 Max: 20 SpO2 Min: 97 % Max: 100 % Intake/Output Summary (Last 24 hours) at 11/17/08 1138 Last data filed at 11/17/08 0900 Gross per 24 hour Intake 1325 ml Output 1926 ml Net -601 ml Physical Exam: General: Alert and oriented, no acute distress Respiratory: CTA bilaterally. Cardiovascular: RRR no murmurs Abdomen: Soft, NTND. Extremities: Warm and well perfused, wound vac in place on left forearm. Fingertips 2-5 wi th dry gangrene that is more demarcated today. Stable edema to entire LUE especially the for earm. Forearm nontender to palpation. Improving flexor and extensor motor function of left f ingers. Palpable radial pulses bilaterally. Strong doppler signals present bilateral PT and DP. Labs: Chemistries: Recent Labs Basename 11/17/0842811/16/0851511/15/08 0535 NA 139 139 140 K 4.1 4.1 3.7 CL 105 105 104 BICARB 27 28 30 BUN 9 8 8 CR 0.65 0.57* 0.58* GLU 195* 71 79 CA 8.3* 8.4* 8.4* MG 2.3 2.3 2.2 PO4 2.9 4.0 4.6 CBC with diff Recent Labs Basename 11/17/0842811/16/0851511/15/08 0535 WBC 15.1* 19.2* 14.9* HB 9.9* 10.8* 7.6* HCT 29.2* 31.7* 22.0* PLT 502* 513* 418* NEUTROPERC -- -- -- BANDPCT -- -- -- LYMPHPERC -- -- -- MONOPERC -- -- -- BASOPERC -- -- -- EOSPERC -- -- -- Coag Lab Results Component Value Date INR 1.28 11/09/08 INR 1.38 11/08/08 INR 1.09 11/06/08 CBG's CBG Result ($) Min: 74 Max: 272 LastCBG CBG Result ($): 200 (11/17/08 7:37 AM) CBG Intervention: Medication given (11/14/08 11:00 AM) Assessment and Plan: Kelly Mcclellan is a 53 y.o. female who is on HD# 11, POD #10/9 S/P thrombectomy of brachial, radial and ulnar arteries x2, extensor and flexor forearm fasciotomies and palmar hand fasc iotomies. 1) Digital gangrene: currently noninfectious. Plan to go to OR with ortho on Wed for finge rtip amputation and washout of hand fasciotomy sites. 2) Vaginal bleeding: Pt was transfused 2U of blood on . Yesterday with minimal bleedi ng. Hct currently stable, will continue to follow. [employer] plans to perform vaginal myomectomy o f fibroid intraoperatively on Wed. 3) Wound care: Will continue daily wound care of hand fasciotomies with xeroform. Wound va c was changed yesterday. Will plan to change again on . 4) Itching: No evidence of rash on physical examination. Will prescribe prn benadryl. Pt u nderstands that this will cause some somnolence. Nasra Lamar, MSIV air, MD Bryce - 11/17/2008 11:21 AM PDT CLINICAL HOSPITALIST SERVICE ([facility])-PROGRESS NOTE Glycemic team follow up: HOSPITAL DAY: 11 Author: BRYCE REYNA MD Subjective:Started eating again last night-was feeling hungry and had a big dinner. Waiting for surgery which is scheduled for Wednesday now as they could not do it yesterday. No ches t pain or shortness of breath Physical Exam: Vitals (Most recent): Blood pressure 122/73, pulse 74, temperature 36.6 C (97.9 F), resp. rate 18, weight 76.8 kg (169 lb 5 oz), SpO2 100%. Intake/Output Summary (Last 24 hours) at 11/17/08 1121 Last data filed at 11/17/08 0900 Gross per 24 hour Intake 1325 ml Output 1926 ml Net -601 ml General : Awake, not in acute distress Cardiovascular: 1st and 2nd heart sounds normal with regular rhythm. Respiratory: Normal vesicular breath sounds b/l. Gastrointestinal: Abdomen is soft, BS+. Musculoskeletal: No peripheral edema. Left arm covered in dressings, no obvious drainage Studies:Chemistries: Last 72 Hours (or 3 results): Recent Labs Basename 11/17/089 11/16/08 0516 11/15/08 0535 NA 139 139 140 K 4.1 4.1 3.7 CL 105 105 104 BICARB 27 28 30 BUN 9 8 8 CR 0.65 0.57* 0.58* GLU 195* 71 79 CA 8.3* 8.4* 8.4* MG 2.3 2.3 2.2 PO4 2.9 4.0 4.6 CBC with diff last 72 hours (or 3 results) Recent Labs Basename 11/17/0842811/16/08 0516 11/15/08 0535 WBC 15.1* 19.2* 14.9* HB 9.9* 10.8* 7.6* HCT 29.2* 31.7* 22.0* PLT 502* 513* 418* NEUTROPERC -- -- -- BANDPCT -- -- -- LYMPHPERC -- -- -- MONOPERC -- -- -- BASOPERC -- -- -- EOSPERC -- -- -- Lab Results Component Value Date GLU 195 11/17/08 GLU 71 11/16/08 GLU 79 11/15/08 Current Meds: acetaminophen (aka TYLENOL) tablet 650 mg, 650 mg, Oral, Q4H PRN aspirin EC tablet 325 mg, 325 mg, Oral, DAILY bisacodyl (aka DULCOLAX) suppository 10 mg, 10 mg, Rectal, BID PRN bisacodyl EC (aka DULCOLAX) tablet 5 mg, 5 mg, Oral, DAILY PRN dextrose 5%-lactated ringers IV, , Intravenous, CONTINUOUS dextrose injection 25 mL, 12.5 g, Intravenous, Q15MIN PRN docusate sodium (aka COLACE) capsule 100 mg, 100 mg, Oral, BID PRN enoxaparin (aka LOVENOX) injection 70 mg, 70 mg, Subcutaneous, BID glucagon (aka GLUCAGEN) injection 1 mg, 1 mg, Subcutaneous, Q15MIN PRN glucose chewable tablet 15 g, 15 g, Oral, Q15MIN PRN heparin lock flush IV 50 Units, 50 Units, Intravenous, PRN HYDROmorphone (aka DILAUDID) injection 1-2 mg, 1-2 mg, Intravenous, Q4H PRN insulin aspart (aka NOVOLOG) injection 1-16 Units, 1-16 Units, Subcutaneous, AC and HS insulin aspart (aka NOVOLOG) injection 10 Units, 10 Units, Subcutaneous, TID AC insulin aspart (aka NOVOLOG) injection 12 Units, 12 Units, Subcutaneous, TID AC insulin NPH (aka HUMULIN N,NOVOLIN N) injection 26 Units, 26 Units, Subcutaneous, Q12H lisinopril (aka PRINIVIL) tablet 5 mg, 5 mg, Oral, DAILY medroxyPROGESTERone (aka PROVERA) tablet 20 mg, 20 mg, Oral, DAILY metoprolol (aka LOPRESSOR) tablet 25 mg, 25 mg, Oral, BID naloxone (aka NARCAN) injection, , Intravenous, PRN ondansetron (aka ZOFRAN) injection 4 mg, 4 mg, Intravenous, Q12H PRN oxycodone immediate release (aka ROXICODONE) tablet 5-20 mg, 5-20 mg, Oral, Q3H PRN senna-docusate (aka SENOKOT S) 8.6-50 mg 1 Tab, 1 Tab, Oral, BID simethicone chew (aka MYLICON) tablet 80 mg, 80 mg, Oral, TID PRN simvastatin (aka ZOCOR) tablet 10 mg, 10 mg, Oral, QPM Assessment/Plan: 1. Type 2 DM: Newly diagnosed with HbA1C 14% Diet : Diabetic diet CBGs (24h) : AM CB, maximum: 272 Target glucose : Fasting <140 and Random <180 (Non-ICU patients) Home Rx : None Current Rx : NPH insulin 26 units BID and novolog 10 units TID BMP : Hypokalemia corrected Hypoglycemia : None Recommendations: Ms. Mcclellan was NPO yesterday morning, but started eating again last evening-sine then her blood sugars have gone up. Yesterday reduced the dose of NPH to 26 units and increased novol og to 10 units TID. AM CBG improving, but still not within goal. Will go up on NPH to 28 uni ts. Advised to take novolog with every meal. She is now at a total of 58 units of insulin a day-if we could bring it down to 30 units- she could be switched to oral hypoglycemics. Will continue to monitor. If patient is getting discharged- she will need testing supplies with insulin and close follow up with her PCP in a week. Her novolog has to be changed to regular insulin as it is cheaper. BRYCE REYNA MD [facility] 11[facility] Clinical Hospitalist Service [facility] [place] EPIC DEPARTMENT: Hosp ([facility])- [phone] Place of Service: IP - [id number] [facility] [phone] CPT: 00168 Subsequent Visit Prob Focused/Low Complexity 15 min Total time spent on this encounter: 18 min Ulysses Black MD - 5:28 PM PDTDue to staffing issues the OR was placed on hold and the decision was m jose l to cancel 's planned digit amputation. The finger tips do not appear to have a ny drainage and there is no purulence from fasc sites. We will tentatively plan on re-schedu ling her for Wed. Talked with patient and she is agreeable to plan. If patient is stable she is OK for discharge from Ortho standpoint and can follow up Mon in clinic [phone].Elec tronically signed by Ulysses Pena MD at 11/16/2008 5:35 PM Bryce Nath MD - 009 3:01 PM PDT CLINICAL HOSPITALIST SERVICE ([facility])-PROGRESS NOTE Glycemic team follow up: HOSPITAL DAY: 10 Author: BRYCE REYNA MD Subjective: Ms. Mcclellan denies any nausea or vomiting today. No chest pain or shortness of breath. She is currently NPO for the procedure. Has noticed some bleeding from the left arm Physical Exam: Vitals (Most recent): Blood pressure 123/93, pulse 73, temperature 36.8 C (98.2 F), resp. rate 20, weight 77.9 kg (171 lb 11.8 oz), SpO2 100%. Intake/Output Summary (Last 24 hours) at 11/16/08 1502 Last data filed at 11/16/08 1300 Gross per 24 hour Intake 1200 ml Output 1525 ml Net -325 ml General : Awake, alert, not in acute distress Cardiovascular: 1st and 2nd heart sounds normal with regular rhythm. Respiratory: Normal vesicular breath sounds b/l. Gastrointestinal: Abdomen is soft, BS+. Musculoskeletal: No peripheral edema. Left arm in a cast, multiple incisions sutured. Digi ts are gangrenous Studies:Chemistries: Last 72 Hours (or 3 results): Recent Labs Basename 11/16/08 0516 11/15/08 0535 11/14/08 0504 NA 139 140 136 K 4.1 3.7 4.2 CL 105 104 101 BICARB 28 30 28 BUN 8 8 4* CR 0.57* 0.58* 0.63 GLU 71 79 197* CA 8.4* 8.4* 8.3* MG 2.3 2.2 1.9 PO4 4.0 4.6 3.2 CBC with diff last 72 hours (or 3 results) Recent Labs Basename 11/16/08 0516 11/15/08 0535 11/14/08 0504 WBC 19.2* 14.9* 16.8* HB 10.8* 7.6* 8.5* HCT 31.7* 22.0* 25.1* PLT 513* 418* 439* NEUTROPERC -- -- -- BANDPCT -- -- -- LYMPHPERC -- -- -- MONOPERC -- -- -- BASOPERC -- -- -- EOSPERC -- -- -- Lab Results Component Value Date GLU 71 11/16/08 GLU 79 11/15/08 GLU 197 11/14/08 Current Meds: acetaminophen (aka TYLENOL) tablet 650 mg, 650 mg, Oral, Q4H PRN aspirin EC tablet 325 mg, 325 mg, Oral, DAILY bisacodyl (aka DULCOLAX) suppository 10 mg, 10 mg, Rectal, BID PRN bisacodyl EC (aka DULCOLAX) tablet 5 mg, 5 mg, Oral, DAILY PRN dextrose 5%-lactated ringers IV, , Intravenous, CONTINUOUS dextrose injection 25 mL, 12.5 g, Intravenous, Q15MIN PRN diphenhydrAMINE (aka BENADRYL) capsule 50 mg, 50 mg, Oral, PRN docusate sodium (aka COLACE) capsule 100 mg, 100 mg, Oral, BID PRN enoxaparin (aka LOVENOX) injection 70 mg, 70 mg, Subcutaneous, BID glucagon (aka GLUCAGEN) injection 1 mg, 1 mg, Subcutaneous, Q15MIN PRN glucose chewable tablet 15 g, 15 g, Oral, Q15MIN PRN heparin lock flush IV 50 Units, 50 Units, Intravenous, PRN HYDROmorphone (aka DILAUDID) injection 1-2 mg, 1-2 mg, Intravenous, Q4H PRN insulin aspart (aka NOVOLOG) injection 1-16 Units, 1-16 Units, Subcutaneous, AC and HS insulin aspart (aka NOVOLOG) injection 10 Units, 10 Units, Subcutaneous, TID W/MEALS insulin aspart (aka NOVOLOG) injection 12 Units, 12 Units, Subcutaneous, TID AC insulin NPH (aka HUMULIN N,NOVOLIN N) injection 26 Units, 26 Units, Subcutaneous, Q12H lisinopril (aka PRINIVIL) tablet 5 mg, 5 mg, Oral, DAILY medroxyPROGESTERone (aka PROVERA) tablet 20 mg, 20 mg, Oral, DAILY metoprolol (aka LOPRESSOR) tablet 25 mg, 25 mg, Oral, BID naloxone (aka NARCAN) injection, , Intravenous, PRN ondansetron (aka ZOFRAN) injection 4 mg, 4 mg, Intravenous, Q12H PRN oxycodone immediate release (aka ROXICODONE) tablet 5-20 mg, 5-20 mg, Oral, Q3H PRN senna-docusate (aka SENOKOT S) 8.6-50 mg 1 Tab, 1 Tab, Oral, BID simethicone chew (aka MYLICON) tablet 80 mg, 80 mg, Oral, TID PRN simvastatin (aka ZOCOR) tablet 10 mg, 10 mg, Oral, QPM Assessment/Plan: 1. Type 2 DM: Newly diagnosed with HbA1C 14% Diet : Diabetic diet CBGs (24h) : AM CB, maximum: 225 Target glucose : Fasting <140 and Random <180 (Non-ICU patients) Home Rx : None Current Rx : NPH insulin 30 units BID and novolog 10 units TID BMP : Hypokalemia corrected Hypoglycemia : None Recommendations: Her morning sugars have come down a lot- I believe her insulin requirements are slowly comi ng down. We might be able to gradually taper the dose of insulin and may be even switch to a n oral agent upon discharge. For now, I will reduce the NPH to 26 units Q 12 hours. Her Sarah log is currently held due to NPO status. Once PO resumed, will start novolog at 10 units TID . BRYCE REYNA MD [facility] Clinical Hospitalist Service [facility] DEPARTMENT: Hosp ([facility])- [phone] Place of Service: - [phone] [facility] [phone] CPT: 18342 Subsequent Visit Prob Focused/Low Complexity 15 min Total time spent on this encounter: 18 min Jimenez Gayle, Nasra Cerda - 11/16/2008 10:45 AM PDT VASCULAR SURGERY PROGRESS NOTE: Attending Physician: Roc Rae MD 11/16/2008 Subjective: Pt continued to bleed vaginally yesterday. She was transfused 2U PRBC yesterday. Her hct re sponded appropriately from 22 to 31. Pt otherwise has no complaints this morning. Medications: Current hospital medications: acetaminophen (aka TYLENOL) tablet 650 mg, 650 mg, Oral, Q4H PRN, Avery Almazan MD, Last Dose: 650 mg at 11/15/082034 aspirin EC tablet 325 mg, 325 mg, Oral, DAILY, Avery Almazan MD, Last Dose: 325 mg at 0 11/15/080 bisacodyl (aka DULCOLAX) suppository 10 mg, 10 mg, Rectal, BID PRN, Avery Almazan MD bisacodyl EC (aka DULCOLAX) tablet 5 mg, 5 mg, Oral, DAILY PRN, Jeff Garcia MD, Last Dose: 5 mg at 11/11/08 2130 dextrose 5%-lactated ringers IV, , Intravenous, CONTINUOUS, Sam Niño MD, Last Rate : 10 mL/hr (11/10/08 1630) dextrose injection 25 mL, 12.5 g, Intravenous, Q15MIN PRN, PETER Rosas diphenhydrAMINE (aka BENADRYL) capsule 50 mg, 50 mg, Oral, PRN, Sam Niño MD docusate sodium (aka COLACE) capsule 100 mg, 100 mg, Oral, BID PRN, Avery Almazan MD, L ast Dose: 100 mg at 11/14/08 1334 enoxaparin (aka LOVENOX) injection 70 mg, 70 mg, Subcutaneous, BID, Kierraher Donohue, [facility], Last Dose: 70 mg at 11/15/08 2100 glucagon (aka GLUCAGEN) injection 1 mg, 1 mg, Subcutaneous, Q15MIN PRN, PETER Rosas glucose chewable tablet 15 g, 15 g, Oral, Q15MIN PRN, PETER Rosas heparin lock flush IV 50 Units, 50 Units, Intravenous, PRN, Roc Rae MD HYDROmorphone (aka DILAUDID) injection 1-2 mg, 1-2 mg, Intravenous, Q4H PRN, PETER Rosas, Last Dose: 1 mg at 11/13/082034 insulin aspart (aka NOVOLOG) injection 1-16 Units, 1-16 Units, Subcutaneous, AC and HS, Pre bobo Reyna MD, Last Dose: 3 Units at 11/15/082137 insulin aspart (aka NOVOLOG) injection 12 Units, 12 Units, Subcutaneous, TID AC, PETER Nazario insulin aspart (aka NOVOLOG) injection 20 Units, 20 Units, Subcutaneous, TID W/MEALS, Tderika Reyna MD insulin NPH (aka HUMULIN N,NOVOLIN N) injection 30 Units, 30 Units, Subcutaneous, Q12H, Pre bobo Reyna MD, Last Dose: 30 Units at 11/15/082138 lisinopril (aka PRINIVIL) tablet 5 mg, 5 mg, Oral, DAILY, PETER Rosas, Last Dose: 5 mg at 11/16/08 0900 medroxyPROGESTERone (aka PROVERA) tablet 20 mg, 20 mg, Oral, DAILY, Shelby Garcia MD, Las t Dose: 20 mg at 11/16/08 0900 metoprolol (aka LOPRESSOR) tablet 25 mg, 25 mg, Oral, BID, Yvette Paula MD, Last Dose: 2 5 mg at 11/16/08 0900 naloxone (aka NARCAN) injection, , Intravenous, PRN, Sam Niño MD ondansetron (aka ZOFRAN) injection 4 mg, 4 mg, Intravenous, Q12H PRN, Avery Almazan MD, Last Dose: 4 mg at 11/12/081999 oxycodone immediate release (aka ROXICODONE) tablet 5-20 mg, 5-20 mg, Oral, Q3H PRN, PETER Rosas, Last Dose: 20 mg at 11/15/08 2342 senna-docusate (aka SENOKOT S) 8.6-50 mg 1 Tab, 1 Tab, Oral, BID, Jeff Garcia MD, La st Dose: 1 Tab at 11/15/082099 simethicone chew (aka MYLICON) tablet 80 mg, 80 mg, Oral, TID PRN, Avery Almazan MD simvastatin (aka ZOCOR) tablet 10 mg, 10 mg, Oral, QPM, Avery Almazan MD, Last Dose: 10 mg at 11/15/082099 Objective: Systolic (24hrs), Min:117 mmHg, Max:168 mmHg Diastolic (24hrs), Min:64 mmHg, Max:89 mmHg Pulse Min: 74 Max: 93 Temp Min: 36.1 C (97 F) Max: 37.4 C (99.3 F) Resp Min: 15 Max: 20 SpO2 Min: 95 % Max: 100 % Intake/Output Summary (Last 24 hours) at 11/16/08 1045 Last data filed at 11/16/08 0800 Gross per 24 hour Intake 1710 ml Output 1325 ml Net 385 ml Physical Exam: General: Alert and oriented, no acute distress. Respiratory: CTA bilaterally. Cardiovascular: RRR no murmurs Abdomen: Soft, NTND. Extremities: Left upper extremity with wound vac in place on forearm. Fingertips 2-5 on ZOË E with dry gangrene. There is significant edema to the entire LUE with some ecchymoses on th e extensor surface of the elbow. Pt has flexor and extensor motor function of her fingers. T here is a doppler signal in the left radial artery and palmar arch. Labs: Chemistries: Recent Labs Basename 11/16/0851511/15/08 0535 11/14/08 0504 NA 139 140 136 K 4.1 3.7 4.2 CL 105 104 101 BICARB 28 30 28 BUN 8 8 4* CR 0.57* 0.58* 0.63 GLU 71 79 197* CA 8.4* 8.4* 8.3* MG 2.3 2.2 1.9 PO4 4.0 4.6 3.2 CBC with diff Recent Labs Basename 11/16/0851511/15/0835 11/14/08 0504 WBC 19.2* 14.9* 16.8* HB 10.8* 7.6* 8.5* HCT 31.7* 22.0* 25.1* PLT 513* 418* 439* NEUTROPERC -- -- -- BANDPCT -- -- -- LYMPHPERC -- -- -- MONOPERC -- -- -- BASOPERC -- -- -- EOSPERC -- -- -- Coag Lab Results Component Value Date INR 1.28 11/09/08 INR 1.38 11/08/08 INR 1.09 11/06/08 CBG's CBG Result ($) Min: 83 Max: 225 LastCBG CBG Result ($): 83 (11/16/08 7:34 AM) CBG Intervention: Medication given (11/14/08 11:00 AM) Assessment and Plan: Kelly Mcclellan is a 53 y.o. female who is on HD# 10, POD #9/8 S/P thrombectomy of brachial, radial and ulnar arteries x2, extensor and flexor forearm fasciotomies and palmar hand fasci otomies. 1) Vaginal Bleeding: Will continue to follow H/H. [employer] team has been following and has been notified this AM of pt's continued bleeding and need for transfusions yesterday. They will plan to take her to the OR when anticoagulation is d/meghan. 2) Digital dry gangrene: Pt planned to go to OR with ortho today. 3) Wound Care: Will plan on changing wound vac intraoperatively 4) Continue pain control with oxycodone and IV dilaudid, wean off IV post-op 5) Appreciate glycemic team's continued tight glc control 6) Continue BP control Nasra Lamar, MSIV airBryce MD - 11/15/2008 6:52 PM PDT CLINICAL HOSPITALIST SERVICE ([facility])-PROGRESS NOTE Glycemic team follow up: HOSPITAL DAY: 9 Author: BRYCE REYNA MD Subjective: Feeling better. Eating good. Denies any nausea or vomiting. Planning to go to O R tomorrow for digit amputation Physical Exam: Vitals (Most recent): Blood pressure 150/89, pulse 83, temperature 37.4 C (99.3 F), resp. rate 16, weight 77.1 kg (169 lb 15.6 oz), SpO2 97%. Intake/Output Summary (Last 24 hours) at 11/15/08 1852 Last data filed at 11/15/08 1830 Gross per 24 hour Intake 1520 ml Output 1900 ml Net -380 ml General : Alert, not in acute distress Cardiovascular: 1st and 2nd heart sounds normal with regular rhythm. Respiratory: Normal vesicular breath sounds b/l. Gastrointestinal: Abdomen is soft, BS+ Musculoskeletal: No peripheral edema. Left arm in a cast with wound vac, digits all gangre nous Studies:Chemistries: Last 72 Hours (or 3 results): Recent Labs Basename 11/15/0853411/14/08 0504 11/13/08 0509 NA 140 136 140 K 3.7 4.2 3.3* CL 104 101 104 BICARB 30 28 29 BUN 8 4* 4* CR 0.58* 0.63 0.52* GLU 79 197* 163* CA 8.4* 8.3* 7.9* MG 2.2 1.9 1.9 PO4 4.6 3.2 3.5 CBC with diff last 72 hours (or 3 results) Recent Labs Basename 11/15/0853411/14/08 0504 11/13/08 0509 WBC 14.9* 16.8* 14.7* HB 7.6* 8.5* 8.1* HCT 22.0* 25.1* 24.2* PLT 418* 439* 367 NEUTROPERC -- -- -- BANDPCT -- -- -- LYMPHPERC -- -- -- MONOPERC -- -- -- BASOPERC -- -- -- EOSPERC -- -- -- Lab Results Component Value Date GLU 79 11/15/08 GLU 197 11/14/08 GLU 163 11/13/08 Current Meds: acetaminophen (aka TYLENOL) tablet 650 mg, 650 mg, Oral, Q4H PRN aspirin EC tablet 325 mg, 325 mg, Oral, DAILY bisacodyl (aka DULCOLAX) suppository 10 mg, 10 mg, Rectal, BID PRN bisacodyl EC (aka DULCOLAX) tablet 5 mg, 5 mg, Oral, DAILY PRN dextrose 5%-lactated ringers IV, , Intravenous, CONTINUOUS dextrose injection 25 mL, 12.5 g, Intravenous, Q15MIN PRN diphenhydrAMINE (aka BENADRYL) capsule 50 mg, 50 mg, Oral, PRN docusate sodium (aka COLACE) capsule 100 mg, 100 mg, Oral, BID PRN enoxaparin (aka LOVENOX) injection 70 mg, 70 mg, Subcutaneous, BID glucagon (aka GLUCAGEN) injection 1 mg, 1 mg, Subcutaneous, Q15MIN PRN glucose chewable tablet 15 g, 15 g, Oral, Q15MIN PRN heparin lock flush IV 50 Units, 50 Units, Intravenous, PRN HYDROmorphone (aka DILAUDID) injection 1-2 mg, 1-2 mg, Intravenous, Q4H PRN insulin aspart (aka NOVOLOG) injection 1-16 Units, 1-16 Units, Subcutaneous, AC and HS insulin aspart (aka NOVOLOG) injection 10 Units, 10 Units, Subcutaneous, TID W/MEALS insulin aspart (aka NOVOLOG) injection 12 Units, 12 Units, Subcutaneous, TID AC insulin NPH (aka HUMULIN N,NOVOLIN N) injection 30 Units, 30 Units, Subcutaneous, Q12H lisinopril (aka PRINIVIL) tablet 5 mg, 5 mg, Oral, DAILY medroxyPROGESTERone (aka PROVERA) tablet 20 mg, 20 mg, Oral, DAILY metoprolol (aka LOPRESSOR) tablet 25 mg, 25 mg, Oral, BID naloxone (aka NARCAN) injection, , Intravenous, PRN ondansetron (aka ZOFRAN) injection 4 mg, 4 mg, Intravenous, Q12H PRN oxycodone immediate release (aka ROXICODONE) tablet 5-20 mg, 5-20 mg, Oral, Q3H PRN senna-docusate (aka SENOKOT S) 8.6-50 mg 1 Tab, 1 Tab, Oral, BID simethicone chew (aka MYLICON) tablet 80 mg, 80 mg, Oral, TID PRN simvastatin (aka ZOCOR) tablet 10 mg, 10 mg, Oral, QPM Assessment/Plan: 1. Type 2 DM: Newly diagnosed with HbA1C 14% Diet : Diabetic diet CBGs (24h) : AM CB, maximum: 183 Target glucose : Fasting <140 and Random <180 (Non-ICU patients) Home Rx : None Current Rx : NPH insulin 30 units BID and novolog 10 units TID BMP : Hypokalemia corrected Hypoglycemia : None Recommendations: CBGs have improved a lot. Continue the same regimen. Planning to take to OR tomorrow- if MEDICAL DIRECTOR/HEAD TEAM PHYSICIAN O-stop scheduled aspart. BRYCE REYNA MD [facility] Clinical Hospitalist Service [facility] DEPARTMENT: Hosp ([facility])- [phone] Place of Service: IP - [id number] [facility] [phone] CPT: 12069 Subsequent Visit Prob Focused/Low Complexity 15 min Total time spent on this encounter: 18 min Ulysses Black MD - 10:13 AM PDT Addendum - After the patient spoke with the Vascular surgery service she decided that she d id want to pursue with surgery tomorrow for amputation of the index, middle, ring, and littl e fingers. We have therefore booked her for the Ortho Trauma room tomorrow 11/[address] Cabello. Orthopaedic Progress Note: Subjective: No new events, pain controlled. Objective: Wt 77.1 kg (169 lbs 15.6 oz)( < 3 %ile), BP 100/69, Pulse 78, Temperature 36.4 C (97.5 F), RR 20, SpO2 95%. 24 hour Vitals min/max :Temp Min: 36.4 C (97.5 F) Max: 37.2 C (99 F) WV present and holding suction Left upper extremity - A+O x 3. Seems to understand why she is in hospital and the treatment rendered this far. D oes not Black, avascular finger tips to about the level of the middle phalanx. Avascular over dist al tip of thumb. Palm appears to have cap refill. Dressing: Moderate drainage from hand fasciotomy site, no purulence Motor: Deltoid Biceps Triceps Wrist Ext Digit Abd Shaft Headman Intact Intact Intact Intact 0 Intact - = Not examined Pt is able to flex at digits and extend, but intrinsic hand function not present Sensory: Intact to light touch palm and dorsum of hand. No sens in area of necrosis. Vascular: Palpable radial pulse, capillary refill < 1 second in palm. Avascular at tips of fingers a nd thumb. Assesment/Plan: POD# 7 Status post Fasciotomy forearm and hand. Would rec that pt con't with daily dressing changes. The palm and proximal digits actually appear to have adequate blood supply and she will hopefully only require amps at the distal digits. We would like to take pt to OR ermelinda Burgos for amputation through the level of the middle phalanx on the index, middle, ring, a nd little finger as well as washout of the hand fasciotomy site. Attempted to obtain informed consent from patient this AM Thurs and explained the risk of i nfection by leaving the necrotic finger tips in place. Also explained that if a bad infectio n were to ensue and she did become septic she could potentially from the condition. The patient, however, feels that she would like to hold off on surgery to see if she can "work" on the fingers for a few more days. Attempted to explain to the patient that the finger tips do not have any evidence of blood flow and the tissue is . I have contacted patient advocate to help with the care of this patient in regards to our r ecommendation for finger tip amputation. Koby Aguilar GNP - 11/15/2008 9:28 AM PDT INPATIENT PROGRESS NOTE Hospital Day:9 Author; PETER ROSAS Attending Physician: Roc Rae MD Interval Hx 53 yo F female s/p fasciotomies for compartment syndrome and arterial occlusion ., POD # 8, subsequent fasciotomy, POD #9. No acute events. Pain control good. No longer requiring IV pain med for dressing changes. Physical Exam: Last Vitals: BP 100/69 | Pulse 78 | Temp 36.4 C (97.5 F) | Resp 20 | Wt 77.1 kg (169 lb 15.6 oz) | SpO2 95% O2 Delivery Device: None (room air) (11/15/08 4:00 AM) 24 Hour Vital Min/Max: Systolic (24hrs), Min:100 mmHg, Max:133 mmHg Diastolic (24hrs), Min:66 mmHg, Max:83 mmHg Pulse Min: 78 Max: 97 Temp Min: 36.4 C (97.5 F) Max: 37.4 C (99.3 F) Resp Min: 18 Max: 22 SpO2 Min: 93 % Max: 100 % Intake/Output Summary (Last 24 hours) at 11/15/08927 Last data filed at 11/15/08 0500 Gross per 24 hour Intake 920 ml Output 1675 ml Net -755 ml General Appearance: Alert and oriented HEENT: Neck: Respiratory: cta Cardiovascular: s1s2 rrr s murmur Vasc: Radial pulse doppler signal present and regular; brachial doppler signal strong and r egular; not able to obtain ulnar doppler signal but wound vac dressing in place. Brachial in cision with min pink serous drainage. Hand incisions granulating without evidence of infecti on. Wound vac intact. Chemistries: Last 72 Hours (or 3 results): Recent Labs Basename 11/15/0853411/14/0850311/13/08 0509 NA 140 136 140 K 3.7 4.2 3.3* CL 104 101 104 BICARB 30 28 29 BUN 8 4* 4* CR 0.58* 0.63 0.52* GLU 79 197* 163* CA 8.4* 8.3* 7.9* MG 2.2 1.9 1.9 PO4 4.6 3.2 3.5 CBC with diff last 72 hours (or 3 results) Recent Labs Basename 11/15/0853411/14/08 0504 11/13/08 0509 WBC 14.9* 16.8* 14.7* HB 7.6* 8.5* 8.1* HCT 22.0* 25.1* 24.2* PLT 418* 439* 367 NEUTROPERC -- -- -- BANDPCT -- -- -- LYMPHPERC -- -- -- MONOPERC -- -- -- BASOPERC -- -- -- EOSPERC -- -- -- Assessment and Plan: Stable post op course. Demarcating. Per Ortho, pt refusing amputation. Orhto discussed t his with patient advocate. See note. Will discuss with Vascular team Bryce Nath MD - 11/14/2008 6:50 PM PDT CLINICAL HOSPITALIST SERVICE ([facility])-PROGRESS NOTE Glycemic team follow up: HOSPITAL DAY: 8 Author: BRYCE REYNA MD Subjective: Feeling fine. No chest pain or shortness of breath. Eating good. No nausea or v omiting. Planning to take her to OR for possible digit amputation Physical Exam: Vitals (Most recent): Blood pressure 120/83, pulse 86, temperature 37 C (9 8.6 F), resp. rate 22, weight 77.1 kg (169 lb 15.6 oz), SpO2 100%. Intake/Output Summary (Last 24 hours) at 11/14/08 1850 Last data filed at 11/14/08 1600 Gross per 24 hour Intake 2085 ml Output 3025 ml Net -940 ml General : Alert, not in acute distress Cardiovascular: 1st and 2nd heart sounds normal with regular rhythm. Respiratory: Normal vesicular breath sounds b/l. Gastrointestinal: Abdomen is soft, BS+. Musculoskeletal: No peripheral edema. Left arm has a wound vac-digits gangrenous Studies:Chemistries: Last 72 Hours (or 3 results): Recent Labs Basename 11/14/08 0504 11/13/08 0509 11/12/08 0538 NA 136 140 134 K 4.2 3.3* 3.9 CL 101 104 101 BICARB 28 29 27 BUN 4* 4* 3* CR 0.63 0.52* 0.57* GLU 197* 163* 227* CA 8.3* 7.9* 8.1* MG 1.9 1.9 1.8 PO4 3.2 3.5 3.3 CBC with diff last 72 hours (or 3 results) Recent Labs Basename 11/14/08 0504 11/13/08 0509 11/12/08 1421 WBC 16.8* 14.7* 16.0* HB 8.5* 8.1* 9.0* HCT 25.1* 24.2* 25.8* PLT 439* 367 332 NEUTROPERC -- -- -- BANDPCT -- -- -- LYMPHPERC -- -- -- MONOPERC -- -- -- BASOPERC -- -- -- EOSPERC -- -- -- Lab Results Component Value Date GLU 197 11/14/08 GLU 163 11/13/08 GLU 227 11/12/08 Current Meds: acetaminophen (aka TYLENOL) tablet 650 mg, 650 mg, Oral, Q4H PRN aspirin EC tablet 325 mg, 325 mg, Oral, DAILY bisacodyl (aka DULCOLAX) suppository 10 mg, 10 mg, Rectal, BID PRN bisacodyl EC (aka DULCOLAX) tablet 5 mg, 5 mg, Oral, DAILY PRN dextrose 5%-lactated ringers IV, , Intravenous, CONTINUOUS dextrose injection 25 mL, 12.5 g, Intravenous, Q15MIN PRN diphenhydrAMINE (aka BENADRYL) capsule 50 mg, 50 mg, Oral, PRN docusate sodium (aka COLACE) capsule 100 mg, 100 mg, Oral, BID PRN enoxaparin (aka LOVENOX) injection 70 mg, 70 mg, Subcutaneous, BID glucagon (aka GLUCAGEN) injection 1 mg, 1 mg, Subcutaneous, Q15MIN PRN glucose chewable tablet 15 g, 15 g, Oral, Q15MIN PRN HYDROmorphone (aka DILAUDID) injection 1-2 mg, 1-2 mg, Intravenous, Q4H PRN insulin aspart (aka NOVOLOG) injection 1-16 Units, 1-16 Units, Subcutaneous, AC and HS insulin aspart (aka NOVOLOG) injection 10 Units, 10 Units, Subcutaneous, TID W/MEALS insulin aspart (aka NOVOLOG) injection 12 Units, 12 Units, Subcutaneous, TID AC insulin NPH (aka HUMULIN N,NOVOLIN N) injection 30 Units, 30 Units, Subcutaneous, Q12H lisinopril (aka PRINIVIL) tablet 5 mg, 5 mg, Oral, DAILY medroxyPROGESTERone (aka PROVERA) tablet 20 mg, 20 mg, Oral, DAILY metoprolol (aka LOPRESSOR) tablet 25 mg, 25 mg, Oral, BID naloxone (aka NARCAN) injection, , Intravenous, PRN ondansetron (aka ZOFRAN) injection 4 mg, 4 mg, Intravenous, Q12H PRN oxycodone immediate release (aka ROXICODONE) tablet 5-20 mg, 5-20 mg, Oral, Q3H PRN senna-docusate (aka SENOKOT S) 8.6-50 mg 1 Tab, 1 Tab, Oral, BID simethicone chew (aka MYLICON) tablet 80 mg, 80 mg, Oral, TID PRN simvastatin (aka ZOCOR) tablet 10 mg, 10 mg, Oral, QPM Assessment/Plan: 1. Type 2 DM: Newly diagnosed with HbA1C 14% Diet : Diabetic diet CBGs (24h) : AM CB, maximum: 228 Target glucose : Fasting <140 and Random <180 (Non-ICU patients) Home Rx : None Current Rx : NPH insulin 22 units BID and novolog 7 units TID BMP : Hypokalemia corrected Hypoglycemia : None Recommendations: CBGs still high. Increase NPH to 30 units and aspart to 10 units TID. Will change NPH dosi ng to morning and bedtime instead of with dinner to better cover fasting blood sugars. BRYCE REYNA MD [facility] Clinical Hospitalist Service [facility] DEPARTMENT: Hosp ([facility])- [phone] Place of Service: IP - [phone] [facility] [phone] CPT: 09257 Subsequent Visit Prob Focused/Low Complexity 15 min Total time spent on this encounter: 19 min Koby Aguilar GNP - 11/14/2008 12:13 PM PDT INPATIENT PROGRESS NOTE Hospital Day:8 Author; PETER ROSAS Attending Physician: Roc Rae MD Interval Hx: 53 yo F female s/p fasciotomies for compartment syndrome and arterial occlusio n., POD # 7, subsequent fasciotomy, POD #8. No acute events. States her current pain regimen is adequate. Physical Exam: Last Vitals: BP 156/85 | Pulse 94 | Temp 37 C (98.6 F) | Resp 22 | Wt 78.1 kg (172 lb 2 .9 oz) | SpO2 99% O2 Delivery Device: None (room air) (11/14/08 8:00 AM) 24 Hour Vital Min/Max: Systolic (24hrs), Min:144 mmHg, Max:177 mmHg Diastolic (24hrs), Min:85 mmHg, Max:96 mmHg Pulse Min: 89 Max: 104 Temp Min: 36.4 C (97.5 F) Max: 37.2 C (99 F) Resp Min: 16 Max: 22 SpO2 Min: 95 % Max: 100 % Intake/Output Summary (Last 24 hours) at 11/14/08 1213 Last data filed at 11/14/08 0900 Gross per 24 hour Intake 2000 ml Output 2850 ml Net -850 ml General Appearance: Alert and oriented HEENT: Neck: Respiratory: cta Cardiovascular: s1s2 rrr s murmur Vasc: Radial pulse doppler signal present but not regular; brachial doppler signal strong a nd regular; not able to obtain ulnar doppler signal but wound vac dressing in place. Brachia l incision with min pink serous drainage. Hand incisions granulating without evidence of inf ection. Wound vac intact. Chemistries: Last 72 Hours (or 3 results): Recent Labs Basename 11/14/08 05011/13/08 05011/12/08 0538 NA 136 140 134 K 4.2 3.3* 3.9 CL 101 104 101 BICARB 28 29 27 BUN 4* 4* 3* CR 0.63 0.52* 0.57* GLU 197* 163* 227* CA 8.3* 7.9* 8.1* MG 1.9 1.9 1.8 PO4 3.2 3.5 3.3 CBC with diff last 72 hours (or 3 results) Recent Labs Basename 11/14/08 0504 11/13/08 0509 11/12/08 1421 WBC 16.8* 14.7* 16.0* HB 8.5* 8.1* 9.0* HCT 25.1* 24.2* 25.8* PLT 439* 367 332 NEUTROPERC -- -- -- BANDPCT -- -- -- LYMPHPERC -- -- -- MONOPERC -- -- -- BASOPERC -- -- -- EOSPERC -- -- -- Assessment and Plan: Per Ortho hand consult, possible amps at the distal digits. " Although her extrinsic hand m uscles appear to be functional she will likely develop a hand contracture from scarring of t he intrinsic hand muscles. We will have a better idea of reconstruction/salvage of the hand once her vascular status and viable tissue have clearly declared." Will continue with wound vac changesElectronically signed by PETER Rosas at 009 12:30 PM Ulysses Black MD - 11/14/2008 6:51 AM PDT Addendum - We may consider performing the digit amp on Wed depending on the appearance of t he hand tomorrow. Would have pt begin Hand OT to prevent stiffness and maintain as much func tion as possible.Orthopaedic Progress Note: Subjective: No new events, pain controlled. Objective: Wt 78.1 kg (172 lbs 2.9 oz)( < 3 %ile), BP 151/91, Pulse 97, Temperature 37.2 C (99 F), RR 20, SpO2 95%. 24 hour Vitals min/max :Temp Min: 36.4 C (97.5 F) Max: 37.2 C (99 F) WV present and holding suction Left upper extremity - Black, avascular finger tips to about the level of the middle phalanx. Avascular over dist al phalanx of thumb. Palm appears to have cap refill. Dressing: Moderate drainage from hand fasciotomy site, no purulence Motor: Deltoid Biceps Triceps Wrist Ext Digit Abd Shaft Headman Intact Intact Intact Intact 0 Intact - = Not examined Pt is able to flex at digits and extend, but intrinsic hand function not present Sensory: Intact to light touch palm and dorsum of hand. No sens in area of necrosis. Vascular: Palpable radial pulse, capillary refill < 1 second in palm. Avascular at tips of fingers a nd thumb. Assesment/Plan: POD# 6 Status post Fasciotomy forearm and hand. Would rec that pt con't with daily dressing changes. The palm and proximal digits actually appear to have adequate blood supply and she will hopefully only require amps at the distal digits. Although her extrinsic hand muscles appear to be functional she will likely develop a hand contracture from scarring of the intr insic hand muscles. We will have a better idea of reconstruction/salvage of the hand once he r vascular status and viable tissue have clearly declared. She should be followed closely to ensure she does not develop a infection. OK to DC home and follow in [facility] NEXT available when she is discharged [phone]. airBryce MD - 12:18 PM PDT CLINICAL HOSPITALIST SERVICE ([facility])-PROGRESS NOTE Glycemic team follow up: HOSPITAL DAY: 7 Author: BRYCE REYNA MD Subjective: Feeling better. Denies any chest pain or shortness of breath. No nausea or vomi ting. Physical Exam: Vitals (Most recent): Blood pressure 165/92, pulse 93, temperature 36.7 C (98.1 F), resp. rate 16, weight 78.5 kg (173 lb 1 oz), SpO2 96%. Intake/Output Summary (Last 24 hours) at 11/13/08 1218 Last data filed at 11/13/08 1100 Gross per 24 hour Intake 2120 ml Output 5600 ml Net -3480 ml General : Alert, oriented times 3, not in acute distress, left arm wound vac noticed Cardiovascular: 1st and 2nd heart sounds normal with regular rhythm. Respiratory: Normal vesicular breath sounds b/l. Gastrointestinal: Abdomen is soft, BS-normal Musculoskeletal: No peripheral edema. Studies:Chemistries: Last 72 Hours (or 3 results): Recent Labs Basename 11/13/08 0509 11/12/08 0538 11/11/08 0130 NA 140 134 139 K 3.3* 3.9 4.1 CL 104 101 110* BICARB 29 27 26 BUN 4* 3* 4* CR 0.52* 0.57* 0.62 GLU 163* 227* 151* CA 7.9* 8.1* 8.2* MG 1.9 1.8 1.8 PO4 3.5 3.3 3.0 CBC with diff last 72 hours (or 3 results) Recent Labs Basename 11/13/08 0509 11/12/08 1421 11/12/08 0538 11/11/08 0130 WBC 14.7* 16.0* 18.8* -- HB 8.1* 9.0* 9.1* -- HCT 24.2* 25.8* 26.3* -- PLT 367 332 318 -- NEUTROPERC -- -- -- 80* BANDPCT -- -- -- 1 LYMPHPERC -- -- -- 8* MONOPERC -- -- -- 7 BASOPERC -- -- -- 0 EOSPERC -- -- -- 4* Lab Results Component Value Date GLU 163 11/13/08 GLU 227 11/12/08 GLU 151 11/11/08 Current Meds: acetaminophen (aka TYLENOL) tablet 650 mg, 650 mg, Oral, Q4H PRN aspirin EC tablet 325 mg, 325 mg, Oral, DAILY bisacodyl (aka DULCOLAX) suppository 10 mg, 10 mg, Rectal, BID PRN bisacodyl EC (aka DULCOLAX) tablet 5 mg, 5 mg, Oral, DAILY PRN dextrose 5%-lactated ringers IV, , Intravenous, CONTINUOUS dextrose injection 25 mL, 25 mL, Intravenous, PRN diphenhydrAMINE (aka BENADRYL) capsule 50 mg, 50 mg, Oral, PRN docusate sodium (aka COLACE) capsule 100 mg, 100 mg, Oral, BID PRN enoxaparin (aka LOVENOX) injection 70 mg, 70 mg, Subcutaneous, BID glucagon (aka GLUCAGEN) injection 1 mg, 1 mg, Intramuscular, PRN glucose chewable tablet 15 g, 15 g, Oral, Q15MIN PRN HYDROmorphone (aka DILAUDID) injection 1-2 mg, 1-2 mg, Intravenous, Q4H PRN insulin aspart (aka NOVOLOG) injection 1-16 Units, 1-16 Units, Subcutaneous, AC and HS insulin aspart (aka NOVOLOG) injection 7 Units, 7 Units, Subcutaneous, TID AC insulin NPH (aka HUMULIN N,NOVOLIN N) injection 22 Units, 22 Units, Subcutaneous, BID W/CASSIDY LS medroxyPROGESTERone (aka PROVERA) tablet 20 mg, 20 mg, Oral, DAILY metoprolol tartrate (aka LOPRESSOR) tablet 12.5 mg, 12.5 mg, Oral, BID naloxone (aka NARCAN) injection, , Intravenous, PRN ondansetron (aka ZOFRAN) injection 4 mg, 4 mg, Intravenous, Q12H PRN oxycodone immediate release (aka ROXICODONE) tablet 5-20 mg, 5-20 mg, Oral, Q3H PRN senna-docusate (aka SENOKOT S) 8.6-50 mg 1 Tab, 1 Tab, Oral, BID simethicone chew (aka MYLICON) tablet 80 mg, 80 mg, Oral, TID PRN simvastatin (aka ZOCOR) tablet 10 mg, 10 mg, Oral, QPM Assessment/Plan: 1. Type 2 DM: Newly diagnosed with HbA1C 14% Diet : Diabetic diet CBGs (24h) : AM CB, maximum: 220 Target glucose : Fasting <140 and Random <180 (Non-ICU patients) Home Rx : None Current Rx : NPH insulin 18 units BID started AM-was on lantus 35 units HS before along with novolog 5 units TID and sliding scale IV fluids : BMP : Hypokalemia noted Hypoglycemia : None Other pertinent factors : Recommendations: Lantus was changed to NPH this morning AM blood sugar still very high- need to go up on the dose. Required 4 units of sliding scale insulin- will increase NPH to 22 units BID and incr ease novolog to 7 units TID with meals. Patient has agreed to arrange a PCP here. Watched vi richie about diabetes control-teaching now to self administer insulin and check blood sugars. S he will need close follow up of her diabetes with PCP. Need social services manager help with medicati ons as she has no insurance. Patient would benefit from lisinopril 5 mg daily for microalbum inuria. BRYCE REYNA MD [facility] Clinical Hospitalist Service [facility] DEPARTMENT: Hosp ([facility])- [phone] Place of Service: IP - [id number] [facility] [phone] CPT: 88047 Subsequent Visit Prob Focused/Low Complexity 15 min Total time spent on this encounter: 18 min Koby Aguilar GNP - 11/13/2008 11:44 AM PDT INPATIENT PROGRESS NOTE Hospital Day:7 Author; PETER ROSAS Attending Physician: Roc Rae MD Interval Hx:female s/p fasciotomies for compartment syndrome and arterial occlusion. Physical Exam: Last Vitals: BP 165/92 | Pulse 93 | Temp 36.7 C (98.1 F) | Resp 16 | Wt 78.5 kg (173 lb 1 oz) | SpO2 96% O2 Delivery Device: None (room air) (11/13/08 11:15 AM) 24 Hour Vital Min/Max: Systolic (24hrs), Min:146 mmHg, Max:165 mmHg Diastolic (24hrs), Min:84 mmHg, Max:94 mmHg Pulse Min: 92 Max: 108 Temp Min: 36.7 C (98.1 F) Max: 38 C (100.4 F) Resp Min: 16 Max: 16 SpO2 Min: 94 % Max: 98 % Intake/Output Summary (Last 24 hours) at 11/13/08 1144 Last data filed at 11/13/08 1100 Gross per 24 hour Intake 2120 ml Output 5600 ml Net -3480 ml General Appearance: Alert and oriented HEENT: Neck: Respiratory: cta Cardiovascular: s1s2 rrr s murmur Vasc: Radial pulse doppler signal present but not regular; brachial doppler signal strong a nd regular; not able to obtain ulnar doppler signal but wound vac dressing in place. Brachi al incision with min pink serous drainage. Hand incisions granulating without evidence of i nfection. Wound vac intact. Chemistries: Last 72 Hours (or 3 results): Recent Labs Basename 11/13/08 0509 11/12/08 0538 11/11/08 0130 NA 140 134 139 K 3.3* 3.9 4.1 CL 104 101 110* BICARB 29 27 26 BUN 4* 3* 4* CR 0.52* 0.57* 0.62 GLU 163* 227* 151* CA 7.9* 8.1* 8.2* MG 1.9 1.8 1.8 PO4 3.5 3.3 3.0 CBC with diff last 72 hours (or 3 results) Recent Labs Basename 11/13/08 0509 11/12/08 1421 11/12/08 0538 11/11/08 0130 WBC 14.7* 16.0* 18.8* -- HB 8.1* 9.0* 9.1* -- HCT 24.2* 25.8* 26.3* -- PLT 367 332 318 -- NEUTROPERC -- -- -- 80* BANDPCT -- -- -- 1 LYMPHPERC -- -- -- 8* MONOPERC -- -- -- 7 BASOPERC -- -- -- 0 EOSPERC -- -- -- 4* Assessment and Plan: 1) Continue wound dressing changes 2) Follow-up drum builder recs for vaginal bleeding. Consider necessity of uterine artery embolization following massive bleedi ng in future. 4) Continue IV pain control as needed. Titrating off LABOR MEDIATOR with oxycodone. IV diluadid for breakthrough. Avery Lopez M D - 11/12/2008 7:10 PM PDT7:25 PM, AVERY ALMAZAN MD, Resident Note S: Agree with excellent MSIV note above. Pt with continued vaginal bleeding. Questionabl e loss of blood per rectum or vagina, but no abdominal pain and known source of bleeding per vagina. Hct after bleeding episode was 25 compared to 26 in am. O: AF/VSS. Exam as stated above, fingertips remain necrotic, flexion movement still improving. Wound sites do not have evidence of local infection. Doppler signals in left hand palmar arcades and in radial artery. A/P: 53y/o female s/p fasciotomies for compartment syndrome and arterial occlusion. 1) Continue wound dressing changes daily. 2) Follow-up drum builder recs for vaginal bleeding. 3) Consider necessity of uterine artery embolization following massive bleeding in future . 4) Continue IV pain control as needed. Avery Almazan MS, MD Neurological Surgery, [id number] Nasra Gaona Md - 11/12/2008 7:10 PM PDT VASCULAR SURGERY PROGRESS NOTE: Attending Physician: Roc Rae MD 11/12/2008 Subjective: Ms. Mcclellan had a continued episode of vaginal bleeding this afternoon. Otherwise she has n o complaints and no acute events. Medications: Current hospital medications: acetaminophen (aka TYLENOL) tablet 650 mg, 650 mg, Oral, Q4H PRN, Avery Almazan MD, Last Dose: 650 mg at 11/12/08 1200 aspirin EC tablet 325 mg, 325 mg, Oral, DAILY, Avery Almazan MD, Last Dose: 325 mg at 0 11/11/08 2200 bisacodyl (aka DULCOLAX) suppository 10 mg, 10 mg, Rectal, BID PRN, Avery Almazan MD bisacodyl EC (aka DULCOLAX) tablet 5 mg, 5 mg, Oral, DAILY PRN, Jeff Garcia MD, Last Dose: 5 mg at 11/11/08 2130 dextrose 5%-lactated ringers IV, , Intravenous, CONTINUOUS, Sam Niño MD, Last Rate : 10 mL/hr (11/10/08 1630) dextrose injection 25 mL, 25 mL, Intravenous, PRN, Sam Niño MD diphenhydrAMINE (aka BENADRYL) capsule 50 mg, 50 mg, Oral, PRN, Sam Niño MD docusate sodium (aka COLACE) capsule 100 mg, 100 mg, Oral, BID PRN, Avery Almazan MD, L ast Dose: 100 mg at 11/11/08 2130 enoxaparin (aka LOVENOX) injection 70 mg, 70 mg, Subcutaneous, BID, Kierra Donohue [facility], Last Dose: 70 mg at 11/12/08 0839 glucagon (aka GLUCAGEN) injection 1 mg, 1 mg, Intramuscular, PRN, Sam Niño MD glucose chewable tablet 15 g, 15 g, Oral, Q15MIN PRN, Sam Niño MD HYDROmorphone 0.5 mg/mL LABOR MEDIATOR infusion (ADULT, Pyxis) , , Intravenous, CONTINUOUS, Sam Niño MD insulin aspart (aka NOVOLOG) injection 1-16 Units, 1-16 Units, Subcutaneous, AC and HS, Doug Niño MD, Last Dose: 6 Units at 11/12/08 1418 insulin aspart (aka NOVOLOG) injection 5 Units, 5 Units, Subcutaneous, TID AC, Sam reed MD, Last Dose: 5 Units at 11/12/08 1700 insulin NPH (aka HUMULIN N,NOVOLIN N) injection 18 Units, 18 Units, Subcutaneous, BID W/CASSIDY LS, Bernice Alvarez MD medroxyPROGESTERone (aka PROVERA) tablet 20 mg, 20 mg, Oral, DAILY, Shelby Garcia MD, Las t Dose: 20 mg at 11/12/08 0837 metoprolol tartrate (aka LOPRESSOR) tablet 12.5 mg, 12.5 mg, Oral, BID, PETER Rosas , Last Dose: 12.5 mg at 11/12/08 1058 naloxone (aka NARCAN) injection, , Intravenous, PRN, Sam Niño MD ondansetron (aka ZOFRAN) injection 4 mg, 4 mg, Intravenous, Q12H PRN, Avery Almazan MD, Last Dose: 4 mg at 11/08/08 0330 oxycodone immediate release (aka ROXICODONE) tablet 5-15 mg, 5-15 mg, Oral, Q4H PRN, Jeff Garcia MD potassium chloride (aka KLOR-CON) packet 20 mEq, 20 mEq, Oral, DAILY, Jeff Garcia MD , Last Dose: 20 mEq at 11/12/08 0839 senna-docusate (aka SENOKOT S) 8.6-50 mg 1 Tab, 1 Tab, Oral, BID, Jeff Garcia MD, La st Dose: 1 Tab at 11/12/08 1425 simethicone chew (aka MYLICON) tablet 80 mg, 80 mg, Oral, TID PRN, Avery Almazan MD simvastatin (aka ZOCOR) tablet 10 mg, 10 mg, Oral, QPM, Avery Travon Almazan MD, Last Dose: 10 mg at 11/11/08 2100 Objective: Systolic (24hrs), Min:134 mmHg, Max:172 mmHg Diastolic (24hrs), Min:71 mmHg, Max:95 mmHg Pulse Min: 89 Max: 111 Temp Min: 36.2 C (97.2 F) Max: 38 C (100.4 F) Resp Min: 16 Max: 18 SpO2 Min: 94 % Max: 98 % Intake/Output Summary (Last 24 hours) at 11/12/08 1910 Last data filed at 11/12/08 1700 Gross per 24 hour Intake 1990 ml Output 3500 ml Net -1510 ml Physical Exam: General: Alert and oriented, no acute distress Respiratory: CTA bilaterally. Cardiovascular: RRR no murmurs Abdomen: Soft, NTND. Extremities: Left upper extremity with wound vac in place on forearm. All fingertips on ZOË E with dry gangrene. Hand fasciotomies with granulation tissue. There is significant edema t o the entire LUE. Pt has improved movement and sensation in her fingers. There is a strong d oppler signal in the radial artery and palmar arch. There is a palpable right radial pulse. There are DP doppler signals present bilaterally. There is significant edema to lower extrem ities bilaterally. Labs: Chemistries: Recent Labs Basename 11/12/08 0538 11/11/08 0130 11/10/08 0300 NA 134 139 139 K 3.9 4.1 3.5 CL 101 110* 113* BICARB 27 26 22* BUN 3* 4* 4* CR 0.57* 0.62 0.54* GLU 227* 151* 67 CA 8.1* 8.2* 7.5* MG 1.8 1.8 2.2 PO4 3.3 3.0 2.2* CBC with diff Recent Labs Basename 11/12/08 1421 11/12/08 0538 11/11/08 1628 11/11/08 0130 11/10/08 0400 WBC 16.0* 18.8* -- 17.1* -- HB 9.0* 9.1* -- 7.3* -- HCT 25.8* 26.3* 27.7* -- -- PLT 332 318 -- 231 -- NEUTROPERC -- -- -- 80* 84* BANDPCT -- -- -- 1 -- LYMPHPERC -- -- -- 8* 13* MONOPERC -- -- -- 7 3 BASOPERC -- -- -- 0 0 EOSPERC -- -- -- 4* 0* Coag Lab Results Component Value Date INR 1.28 11/09/08 INR 1.38 11/08/08 INR 1.09 11/06/08 CBG's CBG Result ($) Min: 111 Max: 314 LastCBG CBG Result ($): 111 (11/12/08 5:28 PM) CBG Intervention: Medication given (11/12/08 12:26 PM) Assessment and Plan: Kelly Mcclellan is a 53 y.o. female who is on HD# 6, POD #5/4 S/P thrombectomy of brachial, r adial and ulnar arteries x2, extensor and flexor forearm fasciotomies and palmar hand fascio tomies. 1) Pain control: continue LABOR MEDIATOR as pt pain well controlled today 2) Wound care: Will change vac tomorrow and continue a Tues/Fri schedule for changes. 3) Vaginal bleeding: We will continue to follow crits closely and transfuse as necessary. Internet [employer] team is following. An US study suggested fibroids as the culprit for her extensive bleed ing. Will defer to drum builder team as to whether this bleeding episode indicates need for uterine a rtery embolization. Nasra Lamar, MSIV Bernice Cornelius MD - 11/12/2008 12:08 PM PDT CLINICAL HOSPITALIST SERVICE ([facility])-PROGRESS NOTE Glycemic team follow up: HOSPITAL DAY: 6 Author: BERNICE ALVAREZ MD Subjective: No vomiting but had some nausea which has now cleared up. Appetite is OK. Physical Exam: Vitals (Most recent): Blood pressure 149/94, pulse 102, temperature 38 C ( 100.4 F), resp. rate 16, weight 69.3 kg (152 lb 12.5 oz), SpO2 94%. Intake/Output Summary (Last 24 hours) at 11/12/08 1208 Last data filed at 11/12/08 1000 Gross per 24 hour Intake 1842 ml Output 2750 ml Net -908 ml General : Awake and comfortable. Studies:Chemistries: Last 72 Hours (or 3 results): Recent Labs Basename 11/12/08 0538 11/11/08 0130 11/10/08 0300 NA 134 139 139 K 3.9 4.1 3.5 CL 101 110* 113* BICARB 27 26 22* BUN 3* 4* 4* CR 0.57* 0.62 0.54* GLU 227* 151* 67 CA 8.1* 8.2* 7.5* MG 1.8 1.8 2.2 PO4 3.3 3.0 2.2* CBC with diff last 72 hours (or 3 results) Recent Labs Basename 11/12/08 0538 11/11/08 1628 11/11/08 1214 11/11/08 0130 11/10/08 0400 WBC 18.8* -- -- 17.1* 16.6* HB 9.1* -- -- 7.3* 7.4* HCT 26.3* 27.7* 27.0* -- -- PLT 318 -- -- 231 218 NEUTROPERC -- -- -- 80* 84* BANDPCT -- -- -- 1 -- LYMPHPERC -- -- -- 8* 13* MONOPERC -- -- -- 7 3 BASOPERC -- -- -- 0 0 EOSPERC -- -- -- 4* 0* Lab Results Component Value Date GLU 227 11/12/08 GLU 151 11/11/08 GLU 67 11/10/08 Current Meds:acetaminophen (aka TYLENOL) tablet 650 mg, 650 mg, Oral, Q4H PRN aspirin EC tablet 325 mg, 325 mg, Oral, DAILY bisacodyl (aka DULCOLAX) suppository 10 mg, 10 mg, Rectal, BID PRN bisacodyl EC (aka DULCOLAX) tablet 5 mg, 5 mg, Oral, DAILY PRN dextrose 5%-lactated ringers IV, , Intravenous, CONTINUOUS dextrose injection 25 mL, 25 mL, Intravenous, PRN diphenhydrAMINE (aka BENADRYL) capsule 50 mg, 50 mg, Oral, PRN docusate sodium (aka COLACE) capsule 100 mg, 100 mg, Oral, BID PRN enoxaparin (aka LOVENOX) injection 70 mg, 70 mg, Subcutaneous, BID glucagon (aka GLUCAGEN) injection 1 mg, 1 mg, Intramuscular, PRN glucose chewable tablet 15 g, 15 g, Oral, Q15MIN PRN HYDROmorphone 0.5 mg/mL LABOR MEDIATOR infusion (ADULT, Pyxis) , , Intravenous, CONTINUOUS insulin aspart (aka NOVOLOG) injection 1-16 Units, 1-16 Units, Subcutaneous, AC and HS insulin aspart (aka NOVOLOG) injection 5 Units, 5 Units, Subcutaneous, TID AC insulin glargine (aka LANTUS) injection 35 Units, 35 Units, Subcutaneous, DAILY medroxyPROGESTERone (aka PROVERA) tablet 20 mg, 20 mg, Oral, DAILY metoprolol tartrate (aka LOPRESSOR) tablet 12.5 mg, 12.5 mg, Oral, BID naloxone (aka NARCAN) injection, , Intravenous, PRN ondansetron (aka ZOFRAN) injection 4 mg, 4 mg, Intravenous, Q12H PRN oxycodone immediate release (aka ROXICODONE) tablet 5-15 mg, 5-15 mg, Oral, Q4H PRN potassium chloride (aka KLOR-CON) packet 20 mEq, 20 mEq, Oral, DAILY senna-docusate (aka SENOKOT S) 8.6-50 mg 1 Tab, 1 Tab, Oral, BID simethicone chew (aka MYLICON) tablet 80 mg, 80 mg, Oral, TID PRN simvastatin (aka ZOCOR) tablet 10 mg, 10 mg, Oral, QPM Assessment/Plan: 53F with noPCP and no medical care admitted with ischemic left hand after a horse bite s/p thrombolysis with tPA. Found to have high glucose, microcytic anemia. 1. Type 2 DM (newly diagnosed): After my initial consultation, she went for an angio and th en went to the ICU on tPA. She was on insulin gtt which was stopped on 9/12 pm and she was p laced on Novolog 5 units tid ac and Novolog SSI with no long acting insulin. Diet : Regular diet-mechanical soft CBGs (24h) : 266 196 250 310 314 279 Target glucose : Fasting <140 and Random <180 (Non-ICU patients) Home Rx : None Current Rx : Novolog SSI and Novolog 5 units tid ac IV fluids : D5-LR at 10cc/hr BMP : Noted. K is 3.9 Hypoglycemia : None Other pertinent factors : No insurance and no PCP Recommendations:1. HbA1C is 14%. 2. Urine for microalbumin/creatinine ratio is 42. 3. Diabetic teaching-pt watching a video. 4. Start long acting insulin-gave Lantus today, but will switch to NPH from am as it is les s expensive 5. Please involve social services manager/case management as soon as possible to sort out social issu es (no PCP and no insurance). BERNICE ALVAREZ MD [facility] 11[facility] Clinical Hospitalist Service [facility] DEPARTMENT: Hosp ([facility])- [phone] Place of Service: [facility] [phone] CPT: 23027 Subsequent Visit Prob Focused/Low Complexity 15 min Total time spent on this encounter: 15 minutes lysses Pena M D - 11/11/2008 8:42 AM PDT Orthopaedic Progress Note: Subjective: No new events, pain controlled. Objective: Wt 69.3 kg (152 lbs 12.5 oz)( < 3 %ile), BP 120/60, Pulse 96, Temperature 36.7 C (98.1 F), RR 14, SpO2 93%. 24 hour Vitals min/max :Temp Min: 36.6 C (97.9 F) Max: 37.4 C (99.3 F) Right upper extremity - Dressing: Moderate drainage Motor: Deltoid Biceps Triceps Wrist Ext Digit Abd Shaft Headman - - - Intact 0 Intact - = Not examined Thumb IP and IF DIP Joint flex intact Sensory: Dec sens to light touch tips of fingers. Intact to touch dorsum of hand and palm of hand Vascular: No cap refill at digits and black finger tips Assesment/Plan: POD# 3 Status post Left arm Thromboembolectomy ulnar artery and forearm/hand fasciotomies. POD#1 Wound Vac placement Extrinsic muscles of hand working, but intrinsics are not firing. Likely poor prognosis for intrinsic hand recovery given vascular status. Sam Gonzales MD - 11/11/2008 6:37 AM PDT Vascular Surgery Progress Note: 24hr events/Subjective: No acute events overnight. No vaginal bleeding, vag pad changed on ce. Wound vac placed to forearm. Last Vitals: BP 127/65 | Pulse 92 | Temp 37.2 C (99 F) | Resp 18 | Wt 69.3 kg (152 lb 1 2.5 oz) | SpO2 96% 24 Hour Vital Min/Max: Systolic (24hrs), Min:115 mmHg, Max:137 mmHg Diastolic (24hrs), Min:58 mmHg, Max:88 mmHg Pulse Min: 91 Max: 104 Temp Min: 36.8 C (98.2 F) Max: 37.2 C (99 F) Resp Min: 18 Max: 18 SpO2 Min: 95 % Max: 100 % Intake/Output Summary (Last 24 hours) at 11/11/08 0637 Last data filed at 11/11/08 0600 Gross per 24 hour Intake 2000.5 ml Output 2145 ml Net -144.5 ml Gen: NAD. Chest: Mild wheezing L>R CV: Tachy, RR. Abd: Soft. Ext: L-hand: dry gangrene to tips of all 5 digits, 5th digit w/edema and blister on lateral aspect. Palmar fasciotomy sits clean. +hand edema. +dp signals bilaterally. Wound: Vac secured. R-groin: No obvious hematoma. Chemistries: Last 72 Hours (or 3 results): Recent Labs Basename 11/11/08 0130 11/10/08 0300 11/09/08 0138 NA 139 139 142 K 4.1 3.5 3.6 CL 110* 113* 117* BICARB 26 22* 21* BUN 4* 4* 6 CR 0.62 0.54* 0.57* GLU 151* 67 76 CA 8.2* 7.5* 7.0* MG 1.8 2.2 1.5* PO4 3.0 2.2* 2.9 Liver Tests: Last 72 hours (or 3 results) No results found for this basename: AST:3,ALT:3,TBILI:3,AP:3,ALB:3,TP:3 in the last 72 hour s CBC with diff last 72 hours (or 3 results) Recent Labs Basename 11/11/08 0600 11/11/08 0130 11/10/08 2130 11/10/08 0400 11/09/08 0138 WBC -- 17.1* -- 16.6* 18.4* HB -- 7.3* -- 7.4* 8.0* HCT 22.0* 21.8* 22.5* -- -- PLT -- 231 -- 218 168 NEUTROPERC -- 80* -- 84* 71* BANDPCT -- 1 -- -- -- LYMPHPERC -- 8* -- 13* 18 MONOPERC -- 7 -- 3 11* BASOPERC -- 0 -- 0 1 EOSPERC -- 4* -- 0* 0* Lab Results Component Value Date INR 1.28 11/09/08 Meds: acetaminophen (aka TYLENOL) tablet 650 mg, 650 mg, Oral, PRN acetaminophen (aka TYLENOL) tablet 650 mg, 650 mg, Oral, Q4H PRN aspirin EC tablet 325 mg, 325 mg, Oral, DAILY bisacodyl (aka DULCOLAX) suppository 10 mg, 10 mg, Rectal, BID PRN dextrose 5%-lactated ringers IV, , Intravenous, CONTINUOUS dextrose injection 25 mL, 25 mL, Intravenous, PRN diphenhydrAMINE (aka BENADRYL) capsule 50 mg, 50 mg, Oral, PRN docusate sodium (aka COLACE) capsule 100 mg, 100 mg, Oral, BID PRN glucagon (aka GLUCAGEN) injection 1 mg, 1 mg, Intramuscular, PRN glucose chewable tablet 15 g, 15 g, Oral, Q15MIN PRN HYDROmorphone 0.5 mg/mL LABOR MEDIATOR infusion (ADULT, Pyxis) , , Intravenous, CONTINUOUS insulin aspart (aka NOVOLOG) injection 1-16 Units, 1-16 Units, Subcutaneous, AC and HS insulin aspart (aka NOVOLOG) injection 5 Units, 5 Units, Subcutaneous, TID AC medroxyPROGESTERone (aka PROVERA) tablet 20 mg, 20 mg, Oral, DAILY naloxone (aka NARCAN) injection, , Intravenous, PRN ondansetron (aka ZOFRAN) injection 4 mg, 4 mg, Intravenous, Q12H PRN potassium chloride (aka KLOR-CON) packet 20 mEq, 20 mEq, Oral, DAILY simethicone chew (aka MYLICON) tablet 80 mg, 80 mg, Oral, TID PRN simvastatin (aka ZOCOR) tablet 10 mg, 10 mg, Oral, QPM A/P: Kelly Mcclellan is a 53 y.o. female POD#4/3 s/p L-arm thrombectomy of brachial, radial a nd ulnar arteries w/extensor and flexor compartment fasciotomies. 1. Cont pain control (LABOR MEDIATOR). 2. Mobilize. 3. Will give 1U blood - tachy, anemic (hct: 22). 4. Cont local wound care, plan to change wound vac Wed vs . 5. Appreciative of [employer] Mer[employer] and Ortho rec's. 6. Pt stable enough for MRI if indicated. 7. Martinez status (tx orders written). Sam Niño M.D. General Surgery Resident [facility] Pager: [phone] Xi Stevenson MD - 11/11/2008 6:00 AM PDTI saw and examined Kelly Mcclellan with the residents on 11/11/08 and agree with the assesment and plan as outlined in this note and participated in the plann ing of her care. I spent 10 minutes at the bedside providing critical care exclusive of procedures. [id number] Jhon Duenas MD - 11/11/2008 6:00 AM PDT TRAUMA/SURGICAL ICU PROGRESS NOTE BRIEF HISTORY: Kelly Mcclellan is a 53 y.o. Female with acute occlusion of left ulnar artery s/p crush injury when bitten by horse on left forearm, taken to OR x2 for thrombectomy and f asciotomy ICU Day: 5 Procedures: 11/07 Embolectomy/angio, 11/08 thrombectomy left brachial/radial/ulnar arteries - fasciiotomy - endometrial biopsy Post-op Day: 3 24 Hour Events: Remained stable over past 24 hours, placed on martinez status for transfer, pa in well-controlled c/ Dilaudid LABOR MEDIATOR. Wound Vac placed at medial fasciiotomy site. Mild vagi nal bleeding, Hct drifting back down gradually. Distal signals intact in left radial artery and palmar arch, palpable radial pulse. Exam: Last Vitals: BP 135/81 | Pulse 98 | Temp 37.1 C (98.8 F) | Resp 18 | Wt 69.3 kg (152 lb 12.5 oz) | SpO2 96% 24 Hour Vital Min/Max: Systolic (24hrs), Min:115 mmHg, Max:137 mmHg Diastolic (24hrs), Min:58 mmHg, Max:88 mmHg Pulse Min: 91 Max: 104 Temp Min: 36.8 C (98.2 F) Max: 37.1 C (98.8 F) Resp Min: 18 Max: 18 SpO2 Min: 95 % Max: 100 % Intake/Output Summary (Last 24 hours) at 11/11/08 0615 Last data filed at 11/11/08 0600 Gross per 24 hour Intake 2000.5 ml Output 2145 ml Net -144.5 ml In: IVF: @75 Out: UOP: 50-100ml/hr Pain control: Dilaudid LABOR MEDIATOR Medications: Current hospital medications: acetaminophen (aka TYLENOL) tablet 650 mg, 650 mg, Oral, PRN, Sam Niño MD acetaminophen (aka TYLENOL) tablet 650 mg, 650 mg, Oral, Q4H PRN, Avery Almazan MD aspirin EC tablet 325 mg, 325 mg, Oral, DAILY, Avery Almazan MD, Last Dose: 325 mg at 0 11/10/08 2200 bisacodyl (aka DULCOLAX) suppository 10 mg, 10 mg, Rectal, BID PRN, Avery Almazan MD dextrose 5%-lactated ringers IV, , Intravenous, CONTINUOUS, Sam Niño MD, Last Rate : 10 mL/hr (11/10/08 1630) dextrose injection 25 mL, 25 mL, Intravenous, PRN, Sam Niño MD diphenhydrAMINE (aka BENADRYL) capsule 50 mg, 50 mg, Oral, PRN, Sam Niño MD docusate sodium (aka COLACE) capsule 100 mg, 100 mg, Oral, BID PRN, Avery Almazan MD glucagon (aka GLUCAGEN) injection 1 mg, 1 mg, Intramuscular, PRN, Sam Niño MD glucose chewable tablet 15 g, 15 g, Oral, Q15MIN PRN, Sam Niño MD HYDROmorphone 0.5 mg/mL LABOR MEDIATOR infusion (ADULT, Pyxis) , , Intravenous, CONTINUOUS, Sam Niño MD, Last Dose: 0.4 mg at 11/10/08 1300 insulin aspart (aka NOVOLOG) injection 1-16 Units, 1-16 Units, Subcutaneous, AC and HS, Doug Niño MD, Last Dose: 1 Units at 11/10/08 2200 insulin aspart (aka NOVOLOG) injection 5 Units, 5 Units, Subcutaneous, TID AC, Sam reed MD, Last Dose: 5 Units at 11/10/08 1845 medroxyPROGESTERone (aka PROVERA) tablet 20 mg, 20 mg, Oral, DAILY, Shelby Garcia MD, Las t Dose: 20 mg at 11/11/08 0400 naloxone (aka NARCAN) injection, , Intravenous, PRN, Sam Niño MD ondansetron (aka ZOFRAN) injection 4 mg, 4 mg, Intravenous, Q12H PRN, Avery Amlazan MD, Last Dose: 4 mg at 11/08/08 0330 potassium chloride (aka KLOR-CON) packet 20 mEq, 20 mEq, Oral, DAILY, Jeff Garcia MD , Last Dose: 20 mEq at 11/10/08 0900 simethicone chew (aka MYLICON) tablet 80 mg, 80 mg, Oral, TID PRN, Avery Almazan MD simvastatin (aka ZOCOR) tablet 10 mg, 10 mg, Oral, QPM, Avery Almazan MD, Last Dose: 10 mg at 11/10/08 2100 Gen: NAD, resting comfortably Neuro: AOx3, no focal deficits HEENT: PERRL, EOMI, MMM Resp: CTA B CV: RRR Abd: Soft, NT/ND, +BS, no palpable organomegaly Ext: L forearm/wrist wrapped with dressing c/d/i, medial fasciiotomy closed with wound vac in place, distal fingers dusky but unchanged, palpable radial pulse, Doppler signals in palm ar arch ; lower ext with SCDs intact Lab: CBC with diff last 72 hours (or 3 results) Recent Labs Basename 11/11/08 0130 11/10/08 2130 11/10/08 1700 11/10/08 0400 11/09/08 0138 WBC 17.1* -- -- 16.6* 18.4* HB 7.3* -- -- 7.4* 8.0* HCT 21.8* 22.5* 23.1* -- -- PLT 231 -- -- 218 168 NEUTROPERC 80* -- -- 84* 71* BANDPCT 1 -- -- -- -- LYMPHPERC 8* -- -- 13* 18 MONOPERC 7 -- -- 3 11* BASOPERC 0 -- -- 0 1 EOSPERC 4* -- -- 0* 0* Chemistries: Last 72 Hours (or 3 results): Recent Labs Basename 11/11/08 0130 11/10/08 0300 11/09/08 0138 NA 139 139 142 K 4.1 3.5 3.6 CL 110* 113* 117* BICARB 26 22* 21* BUN 4* 4* 6 CR 0.62 0.54* 0.57* GLU 151* 67 76 CA 8.2* 7.5* 7.0* MG 1.8 2.2 1.5* PO4 3.0 2.2* 2.9 Lab Results Component Value Date INR 1.28 11/09/08 Assessment & Plan: Neuro: No acute neurologic issues, pain well-controlled on Dilaudid LABOR MEDIATOR, Distal movement of L hand flexors/extensors intact, no intrinsic muscle function. CV: Remained HD stable overnight. Acute arterial occlusion - treated with surgical embole ctomy and repeat thrombectomy of left brachial/radial/ulnar arteries, Doppler + signals and palpable pulses remain. Hct gradually trending down over past 24 hrs, mild vaginal bleeding . Monitor for HTN and treat c/ metoprolol prn, ASA/Statin per Vascular Pulm: CTA B, no acute issues, good O2 sats, monitor GI: Advanced to regular diet : Adequate UOP with intermittent IVF, will continue to monitor. Pt with h/o DUB worsened by heparin gtt, USABILITY ARCHITECT consulted and started progesterone, performed endometrial biopsy in OR, will monitor bleeding, decreasing in volume FEN: Switched to LR from NS, monitoring lytes, Advanced diet, tolerated well Endo: switched to insulin SSI from drip, monitor CBGs ID: On fluconazole for possible vaginal Candidiasis, monitor sx Heme: Hct gradually decreasing in setting of blood loss from DUB and OR, will monitor H/H a nd need for possible additional pRBCs - discuss with Vascular surg Prophylaxis: H2B, Insulin SSI, HOB 30deg. Discuss starting Lovenox with vascular surgery t kyle Dispo: Transfer to floor with Vascular surgery Dionisio Baldwin MD - 11/11/2008 4:01 AM PDTI saw and evaluated the patient. I agree with the findings and the plan of care as documented in the resident s note. Lo Castro MD Floral Manager, Obstetrics & [place] [address] Shelby Almeida MD - 11/11/2008 4:01 AM PDT INPATIENT PROGRESS NOTE Hospital Day:5 Author; SHELBY GARCIA MD Attending Physician: Roc Rae MD Interval Hx: Patient sleeping soundly. Per RN. No bleeding in last 24. Increase in vagina l discharge, just white mucoid. Only one pad. Physical Exam: Last Vitals: BP 135/81 | Pulse 98 | Temp 37.1 C (98.8 F) | Resp 18 | Wt 69.3 kg (152 lb 12.5 oz) | SpO2 96% O2 Delivery Device: None (room air) (11/11/08 1:00 AM) 24 Hour Vital Min/Max: Systolic (24hrs), Min:115 mmHg, Max:138 mmHg Diastolic (24hrs), Min:58 mmHg, Max:88 mmHg Pulse Min: 89 Max: 104 Temp Min: 36.8 C (98.2 F) Max: 37.1 C (98.8 F) Resp Min: 18 Max: 18 SpO2 Min: 95 % Max: 100 % Intake/Output Summary (Last 24 hours) at 11/11/08 0403 Last data filed at 11/11/08 0300 Gross per 24 hour Intake 2132.5 ml Output 1855 ml Net 277.5 ml CBC with diff last 72 hours (or 3 results) Recent Labs Basename 11/11/08 0130 11/10/08 2130 11/10/08 1700 11/10/08 0400 11/09/08 0138 WBC 17.1* -- -- 16.6* 18.4* HB 7.3* -- -- 7.4* 8.0* HCT 21.8* 22.5* 23.1* -- -- PLT 231 -- -- 218 168 NEUTROPERC 80* -- -- 84* 71* BANDPCT 1 -- -- -- -- LYMPHPERC 8* -- -- 13* 18 MONOPERC 7 -- -- 3 11* BASOPERC 0 -- -- 0 1 EOSPERC 4* -- -- 0* 0* Component Latest Reference Range 11/11/2008 GLUCOSE, PLASMA 60 - 99 mg/dL 151 (H) BUN 6 - 20 mg/dL 4 (L) CREATININE 0.60 - 1.10 mg/dL 0.62 SODIUM 134 - 143 mmol/L 139 POTASSIUM 3.4 - 5.0 mmol/L 4.1 CHLORIDE 97 - 108 mmol/L 110 (H) CALCIUM 8.6 - 10.2 mg/dL 8.2 (L) CO2 23 - 31 mmol/L 26 PHOSPHORUS, PLASMA 2.4 - 4.7 mg/dL 3.0 MAGNESIUM, PLASMA 1.8 - 2.5 mg/dL 1.8 Endometrial biopsy pending US PORTABLE PELVIS COMPLETE: STUDY: TRANSABDOMINAL AND TRANSVAGINAL PELVIC ULTRASOUND 11/10 COMPARISONS: None HISTORY: Menorrhagia, possible prolapsed fibroid TECHNIQUE: Transabdominal followed by transvaginal ultrasound was performed to fully evaluate the pelv ic structures. FINDINGS: Interpretation of this study is limited by patient scanning characteristics. A Jefferson cathet er is present within the urinary bladder. The uterus measures approximately 11.0 x 6.4 x 6.8 cm. Within the uterine fundus, there is a hypoechoic 3.3 x 5.2 x 6.1 cm fundal fibroid. There i s a large heterogeneously echoic fibroid within the lower uterine segment which measures 7.8 x 6.7 x 7.0 cm. There appears to be normal cervix abutting the fibroid. This fibroid obscur es visualization of the remainder of the uterus and adnexa on the transvaginal images. IMPRESSION: 1. Technically limited study due to patient scanning characteristics. 2. Fibroid uterus, with a large lower uterine segment fibroid as above and smaller fundal f ibroid. Assessment and Plan: Kelly Mcclellan is a 53 y.o. admitted 11/07/08 for L forearm arterial occlusion s/p hor se bite; POD# 2 s/p 1) flexor and extensor compartment fasciotomies x 2 and embolectomies an d 2) pelvic exam under anesthesia with endometrial biopsy for profuse vaginal bleeding and p rolapsed 8cm fibroid. Vaginal bleeding currently resolved. Recommendations regarding [employer] issues: 1) Pelvic u/s done yesterday. See report above. 2) Eventual hysterectomy or myomectomy once pt is off heparin (or able to be reversed for s urgery) and LUE issues are resolved; for now will delay surgery unless emergent vaginal blee ding refractory to more conservative measures until pt becomes a more optimal surgical lynda date 3) Recommend uterine artery embolization by interventional radiology if further episodes of heavy vaginal bleeding and unstable for the OR 4) Continue Provera daily 5) Await endometrial biopsy results, pending Will sign off for now, as bleeding currently. We will follow-up endometrial biopsy results when available. Internet Mer[employer] always available in-house. Please contact us for any concerns or if vaginal bleeding re curs. Sam Gonzales MD - 11/10/2008 4:10 PM PDT Vascular Surgery Progress Note: 24hr events/Subjective: No acute events overnight. Wound vac applied today. Arterial cath eter removed. Heparin d/c'd. Last Vitals: BP 127/67 | Pulse 97 | Temp 36.8 C (98.2 F) | Resp 14 | Wt 69.3 kg (152 lb 12.5 oz) | SpO2 98% 24 Hour Vital Min/Max: Systolic (24hrs), Min:92 mmHg, Max:138 mmHg Diastolic (24hrs), Min:40 mmHg, Max:82 mmHg Pulse Min: 80 Max: 105 Temp Min: 36.6 C (97.9 F) Max: 37.4 C (99.3 F) Resp Min: 9 Max: 19 SpO2 Min: 98 % Max: 100 % Intake/Output Summary (Last 24 hours) at 11/10/08 1611 Last data filed at 11/10/08 1500 Gross per 24 hour Intake 3343 ml Output 1800 ml Net 1543 ml Gen: NAD. Ext: LUE: palp radial pulse. +doppler signals to palmar arch. Dry gangrene to tips of all digits of hand. +edema to hand and forearm w/medial ecchymosis. Hand and finger-tips ttp. Pt demonstrates flexor and extensor function, however no intrinsic hand function. +ulnar pulse. Wound: Muscle pink, ulnar artery visible prior to placing wound vac. Protected w/xeroform gauze, curity dressing, and white sponge prior to placement of wound vac. Chemistries: Last 72 Hours (or 3 results): Recent Labs Basename 11/10/08 0300 11/09/0813711/08/08 034 NA 139 142 138 K 3.5 3.6 4.7 CL 113* 117* 113* BICARB 22* 21* 18* BUN 4* 6 13 CR 0.54* 0.57* 0.55* GLU 67 76 263* CA 7.5* 7.0* 7.2* MG 2.2 1.5* 1.9 PO4 2.2* 2.9 4.0 Liver Tests: Last 72 hours (or 3 results) No results found for this basename: AST:3,ALT:3,TBILI:3,AP:3,ALB:3,TP:3 in the last 72 hour s CBC with diff last 72 hours (or 3 results) Recent Labs Basename 11/10/08 1212 11/10/08 0815 11/10/08 0400 11/09/08 0138 11/08/08 0340 WBC -- -- 16.6* 18.4* 21.9* HB -- -- 7.4* 8.0* 10.0* HCT 23.2* 23.6* 21.8* -- -- PLT -- -- 218 168 233 NEUTROPERC -- -- 84* 71* 81* BANDPCT -- -- -- -- -- LYMPHPERC -- -- 13* 18 11* MONOPERC -- -- 3 11* 7 BASOPERC -- -- 0 1 2 EOSPERC -- -- 0* 0* 0* Lab Results Component Value Date INR 1.28 11/09/08 Meds: acetaminophen (aka TYLENOL) tablet 650 mg, 650 mg, Oral, PRN acetaminophen (aka TYLENOL) tablet 650 mg, 650 mg, Oral, Q4H PRN aspirin EC tablet 325 mg, 325 mg, Oral, DAILY bisacodyl (aka DULCOLAX) suppository 10 mg, 10 mg, Rectal, BID PRN dextrose 5%-lactated ringers IV, , Intravenous, CONTINUOUS dextrose injection 25 mL, 25 mL, Intravenous, PRN diphenhydrAMINE (aka BENADRYL) capsule 50 mg, 50 mg, Oral, PRN docusate sodium (aka COLACE) capsule 100 mg, 100 mg, Oral, BID PRN fluconazole (aka DIFLUCAN) tablet 200 mg, 200 mg, Oral, DAILY glucagon (aka GLUCAGEN) injection 1 mg, 1 mg, Intramuscular, PRN glucose chewable tablet 15 g, 15 g, Oral, Q15MIN PRN heparin in D5W 100 units/mL IV infusion , 400 Units/hr, Intravenous, CONTINUOUS HYDROmorphone 0.5 mg/mL LABOR MEDIATOR infusion (ADULT, Pyxis) , , Intravenous, CONTINUOUS insulin regular 1 unit/mL in NaCl 0.9% IV infusion (Pyxis) , 0.25-40 Units/hr, Intravenous, CONTINUOUS medroxyPROGESTERone (aka PROVERA) tablet 20 mg, 20 mg, Oral, DAILY naloxone (aka NARCAN) injection, , Intravenous, PRN ondansetron (aka ZOFRAN) injection 4 mg, 4 mg, Intravenous, Q12H PRN potassium chloride (aka KLOR-CON) packet 20 mEq, 20 mEq, Oral, DAILY ranitidine (aka ZANTAC) IV 50 mg, 50 mg, Intravenous, Q8H simethicone chew (aka MYLICON) tablet 80 mg, 80 mg, Oral, TID PRN simvastatin (aka ZOCOR) tablet 10 mg, 10 mg, Oral, QPM A/P: Kelly Mcclellan is a 53 y.o. female POD#3/2 s/p LUE thrombectomy and fasciotomies. Stab le. 1. Cont LABOR MEDIATOR. 2. Bed rest (flat) for 6hrs now that R groin catheter is out. 3. Control HTN. 4. Cont diabetic diet. 5. Will transition to scheduled insulin regimen and d/c insulin gtt. 6. Will anticipate wv change in 2-3 days. 7. Appreciative of support and recommendations of Orthopaedic surgery, Gynecologic surgery, and Trauma ICU team. 8. Will TKO IVF. 9. Will start therapeutic lovenox/heparin tomorrow. 10. Tx to [facility]. Sam Niño M.D. General Surgery Resident [facility] Pager: [phone] oung, Doreen - 10/30 9:14 AM PDT TRAUMA/SURGICAL ICU PROGRESS NOTE BRIEF HISTORY: Kelly Mcclellan is a 53 y.o. Female who presented with acute L hand ischemia o n 10/28/08 after a horse bite to the left forearm. Pt is now s/p brachial, radial and ulnar e mbolectomies on 11/07/08 followed by emergency repeat revascularization on 11/08/08. Secondary operation involved brachial, radial and ulnar arterial thrombectomies, extensor and flexor c ompartment fasciotomies, palmar fasciotomy and endometrial bx. HD: 4 ICU Day: 4 Post-op Day: 2 24 Hour Events: Pt doing well this morning, pain adequately controlled on dilaudid LABOR MEDIATOR. Sh e has had consistent biphasic doppler signals for L radial artery overnight. Pt received 1U pRBCs overnight for anemia based on slowly decreasing hct. CLD still being tolerated well and pt stated this morning she would like to start eating reg diet. No acute events overnig ht. Exam: Vitals: Temp Min: 36.6 C (97.9 F) Max: 37.4 C (99.3 F) Pulse Min: 80 Max: 105 Systolic (24hrs), Min:92 mmHg, Max:138 mmHg Diastolic (24hrs), Min:40 mmHg, Max:82 mmHg Resp Min: 9 Max: 19 SpO2 Min: 99 % Max: 100 % on RA I/Os: Intake/Output Summary (Last 24 hours) at 11/10/08 0914 Last data filed at 11/10/08 0900 Gross per 24 hour Intake 3202.5 ml Output 1690 ml Net 1512.5 ml In: IVF: @75 PO 100 Out: UOP: 1512 ml/24 hr Drips: Pain Control: Diludid LABOR MEDIATOR Insulin @2 Heparin @400 U/hr Current hospital medications: acetaminophen (aka TYLENOL) tablet 650 mg, 650 mg, Oral, PRN, Sam Niño MD acetaminophen (aka TYLENOL) tablet 650 mg, 650 mg, Oral, Q4H PRN, Avery Almazan MD aspirin EC tablet 325 mg, 325 mg, Oral, DAILY, Avery Almazan MD, Last Dose: 325 mg at 0 11/09/080 bisacodyl (aka DULCOLAX) suppository 10 mg, 10 mg, Rectal, BID PRN, Avery Almazan MD dextrose 5%-lactated ringers IV, , Intravenous, CONTINUOUS, Jhon Payton MD, Last Rate: 75 mL/hr (11/10/08 0545) dextrose injection 25 mL, 25 mL, Intravenous, PRN, Avery Almazan MD diphenhydrAMINE (aka BENADRYL) capsule 50 mg, 50 mg, Oral, PRN, Sam Niño MD docusate sodium (aka COLACE) capsule 100 mg, 100 mg, Oral, BID PRN, Avery Almazan MD fluconazole (aka DIFLUCAN) tablet 200 mg, 200 mg, Oral, DAILY, Avery Almazan MD, Last D ose: 200 mg at 11/09/08 2200 glucagon (aka GLUCAGEN) injection 1 mg, 1 mg, Intramuscular, PRN, Avery Almazan MD glucose chewable tablet 15 g, 15 g, Oral, Q15MIN PRN, Avery Almazan MD heparin in D5W 100 units/mL IV infusion , 400 Units/hr, Intravenous, CONTINUOUS, Sma Niño MD, Stopped at: 11/10/08 0800 HYDROmorphone 0.5 mg/mL LABOR MEDIATOR infusion (ADULT, Pyxis) , , Intravenous, CONTINUOUS, Sam Niño MD, Last Dose: 0.5 mg at 11/10/08 0800 insulin regular 1 unit/mL IV infusion (non-Pyxis) , 0.25-40 Units/hr, Intravenous, CONTINUO US, Avery Almazan MD, Stopped at: 11/10/08 0800 medroxyPROGESTERone (aka PROVERA) tablet 20 mg, 20 mg, Oral, DAILY, Shelby Garcia MD, Las t Dose: 20 mg at 11/10/08 0900 naloxone (aka NARCAN) injection, , Intravenous, PRN, Sam Niño MD ondansetron (aka ZOFRAN) injection 4 mg, 4 mg, Intravenous, Q12H PRN, Avery Almazan MD, Last Dose: 4 mg at 11/08/08 0330 potassium chloride (aka KLOR-CON) packet 20 mEq, 20 mEq, Oral, DAILY, Jeff Garcia MD , Last Dose: 20 mEq at 11/10/08 0900 ranitidine (aka ZANTAC) IV 50 mg, 50 mg, Intravenous, Q8H, Avery Almazan MD, Last Dose: 50 mg at 11/10/08 0600 simethicone chew (aka MYLICON) tablet 80 mg, 80 mg, Oral, TID PRN, Avery Almazan MD simvastatin (aka ZOCOR) tablet 10 mg, 10 mg, Oral, QPM, Avery Almazan MD, Last Dose: 10 mg at 11/09/08 2100 Gen: Pt sleepy but arousable, lying in bed in NAD Neuro: AAOx3 HEENT: EOMI, MMM Resp: CTAB, symmetric expansion, no wheezes CV: RRR Abd: Soft, NTND, +BS, no palpable organomegaly Ext: L forearm/wrist wrapped with dressing c/d/i, distal fingers visible, dusky but unchang ed overnight. L radial pulse 2+, palpable. Lower ext with scds intact, distal pulses bare ly palpable. Lab: Recent Labs Basename 11/10/08 0400 11/09/08199911/09/08 1334 11/09/088 11/08/08339 WBC 16.6* -- -- 18.4* 21.9* HB 7.4* -- -- 8.0* 10.0* HCT 21.8* 19.9* 21.6* -- -- PLT 218 -- -- 168 233 Recent Labs Basename 11/10/08 0300 11/09/08 0646 11/08/08339 INR -- 1.28* 1.38* APTT 31.1 42.7* -- FIBRINOGEN -- 281 153* Recent Labs Basename 11/10/08 0300 11/09/0813711/08/08339 NA 139 142 138 K 3.5 3.6 4.7 CL 113* 117* 113* BICARB 22* 21* 18* BUN 4* 6 13 CR 0.54* 0.57* 0.55* GLU 67 76 263* CA 7.5* 7.0* 7.2* MG 2.2 1.5* 1.9 PO4 2.2* 2.9 4.0 Imaging: L forearm XR (11/07/08) - Normal left elbow and forearm. L hand XR (11/07/08) - Mild degenerative joint disease involving the distal interphalangeal j oints, the thumb interphalangeal joint and first carpometacarpal Joint. L elbow XR (11/07/08) - Normal left elbow and forearm. L brachial Arteriogram (11/07/08) - 1. extensive thrombosis of the left radial and ulnar jessica petey 2. Initiation of a fibrinolytic infusion with TPA CXR (11/08/08) - Wnl. Assessment & Plan: Neuro: Pt alert and oriented. Pain adequately controlled on dilaudid LABOR MEDIATOR with 0.1 mg dosing . Distal movement of L hand flexors/extensors intact. CV: HD stable. BP low intermittently overnight but wnl. Pulm: Pt satting well at 100% on RA. Non-labored respirations. GI: Pt tolerating CLD, pt to be advanced to regular diet today. : UOP adequate overnight. No evidence of renal dysfunction. FEN: Mg and Phos repletion this am. Will cont IVF at 75 for pressure support. Pt also rece iving replacements for fluid lost at wound site. Endo: Serum glc controlled on ICU insulin protocol. Pt required 2-3 U/hr insulin overnight. Will consider switching patient off insulin drip to long-acting insulin after tolerating r eg diet. ID: Pt afebrile, wbc decreased to 16.6 today (18.4 yesterday). No evidence of erythema or i nfection around surgical sites although forearm fasciotomy is still open. Vascular team is p erforming daily dressing changes. Will cont to monitor. Heme: Hct gradually decreasing yesterday, 19.9 overnight. Pt was transfused 1u PRBCs and h ct this morning is 23.6. Pt still on heparin infusion in L forearm/hand at 400 U/hr. Prophylaxis: Pt is on ranitidine for GI ppx, scds for VTE ppx. Dispo: Pt to be transferred to [facility] today per vascular surgery team. Dionisio Baldwin MD - 11/10/2008 9:13 AM [facility] saw and evaluated the patient. I agree with the findings and the plan of care as documented in the resident s note. Lo Castro MD Floral Manager, Obstetrics & [place] [address] Xi Segundo MD - 11/10/2008 9:13 AM PDT INPATIENT PROGRESS NOTE Hospital Day:4 Author; CAMILLE ROBLERO MD Attending Physician:Madeline Weaver MD Interval Hx: Hct jania to 19 yesterday, transfused 1 unit PRBCs with appropriate increase i n Hct. Pt reports pain controlled with LABOR MEDIATOR. Scant vaginal bleeding, more like vaginal discharge pe r RN. No pad required at this time. Per trauma note, pt to be transferred to the [facility] today. Physical Exam: Last Vitals: BP 128/69 | Pulse 92 | Temp 37 C (98.6 F) | Resp 14 | Wt 69.3 kg (152 lb 1 2.5 oz) | SpO2 100% O2 Delivery Device: None (room air) (11/10/08 8:00 AM) 24 Hour Vital Min/Max: Systolic (24hrs), Min:92 mmHg, Max:138 mmHg Diastolic (24hrs), Min:40 mmHg, Max:82 mmHg Pulse Min: 80 Max: 105 Temp Min: 36.6 C (97.9 F) Max: 37.4 C (99.3 F) Resp Min: 9 Max: 19 SpO2 Min: 99 % Max: 100 % Intake/Output Summary (Last 24 hours) at 11/10/08912 Last data filed at 11/10/08 0900 Gross per 24 hour Intake 3202.5 ml Output 1690 ml Net 1512.5 ml General Appearance: arousable, conversive, appropriate Extremities: SCDs on LE bilaterally; LUE with dusky fingertips Chemistries: Last 72 Hours (or 3 results): Recent Labs Basename 11/10/08 0300 11/09/0813711/08/08 0340 NA 139 142 138 K 3.5 3.6 4.7 CL 113* 117* 113* BICARB 22* 21* 18* BUN 4* 6 13 CR 0.54* 0.57* 0.55* GLU 67 76 263* CA 7.5* 7.0* 7.2* MG 2.2 1.5* 1.9 PO4 2.2* 2.9 4.0 CBC with diff last 72 hours (or 3 results) Recent Labs Basename 11/10/08 0400 11/09/08 2000 11/09/08 1334 11/09/0813711/08/08 0340 WBC 16.6* -- -- 18.4* 21.9* HB 7.4* -- -- 8.0* 10.0* HCT 21.8* 19.9* 21.6* -- -- PLT 218 -- -- 168 233 NEUTROPERC 84* -- -- 71* 81* BANDPCT -- -- -- -- -- LYMPHPERC 13* -- -- 18 11* MONOPERC 3 -- -- 11* 7 BASOPERC 0 -- -- 1 2 EOSPERC 0* -- -- 0* 0* Endometrial biopsy pending Assessment and Plan: Kelly Mcclellan is a 53 y.o. admitted /11/07 for L forearm arter ial occlusion s/p horse bite; POD# 2 s/p 1) flexor and extensor compartment fasciotomies x 2 and embolectomies and 2) pelvic exam under anesthesia with endometrial biopsy for profuse v aginal bleeding and prolapsed 8cm fibroid. Vaginal bleeding currently resolved. Recommendations regarding [employer] issues: 1) Pelvic u/s done today to further evaluate anatomy and aid operative assessment; will con communications consultant MRI if indicated - report pending. Await final read. 2) Eventual hysterectomy or myomectomy once pt is off heparin (or able to be reversed for s urgery) and LUE issues are resolved; for now will delay surgery unless emergent vaginal blee ding refractory to more conservative measures until pt becomes a more optimal surgical lynda date 3) Recommend uterine artery embolization by interventional radiology if further episodes of heavy vaginal bleeding and unstable for the OR 4) Continue Provera daily 5) Await endometrial biopsy results, pending We will continue to follow. Please feel free to call us with any questions or concerns. Ulysses Black MD - 11/10/2008 7:31 AM Lucy wiley of this note might be different from the original. Orthopaedic Progress Note: Subjective: No new events, pain controlled. Objective: Wt 69.3 kg (152 lbs 12.5 oz)( < 3 %ile), BP 115/69, Pulse 91, Temperature 36.6 C (97.9 F), RR 14, SpO2 100%. 24 hour Vitals min/max :Temp Min: 36.6 C (97.9 F) Max: 37.4 C (99.3 F) Right upper extremity - Dressing: Moderate drainage Motor: Deltoid Biceps Triceps Wrist Ext Digit Abd Shaft Headman - - - Intact 0 Intact - = Not examined Thumb IP and IF DIP Joint flex intact Sensory: Dec sens to light touch tips of fingers. Intact to touch dorsum of hand and palm of hand Vascular: No cap refill at digits and black finger tips Assesment/Plan: POD# 2 Status post Left arm Thromboembolectomy ulnar artery and forearm/hand fasciotomies. Extrinsic muscles of hand working, but intrinsics are not firing. Likely poor prognosis for intrinsic hand recovery given vascular status. Jhon Duenas MD - 01/2009 5:39 AM PDT TRAUMA/SURGICAL ICU PROGRESS NOTE BRIEF HISTORY: Kelly Mcclellan is a 53 y.o. Female with acute occlusion of left ulnar artery s/p crush injury when bitten by horse on left forearm, taken to OR x2 for thrombectomy and f asciotomy ICU Day: 4 Procedures: 11/07 Embolectomy/angio, 11/08 thrombectomy left brachial/radial/ulnar arteries - fasciiotomy - endometrial biopsy Post-op Day: 2 24 Hour Events: Minimal vaginal bleeding overnight, Hct drifting down and transfused 1U pR BCs. Pain well-controlled on Dilaudid LABOR MEDIATOR, monitoring H/H. Distal signals intact in left r adial artery and palmar arch with Q1 doppler checks overnight, no acute events Exam: Vitals: Last Vitals: BP 138/82 | Pulse 89 | Temp 36.9 C (98.5 F) | Resp 14 | Wt 69.3 kg (152 lb 12.5 oz) | SpO2 100% 24 Hour Vital Min/Max: Systolic (24hrs), Min:92 mmHg, Max:138 mmHg Diastolic (24hrs), Min:40 mmHg, Max:82 mmHg Pulse Min: 80 Max: 105 Temp Min: 36.7 C (98.1 F) Max: 37.4 C (99.3 F) Resp Min: 9 Max: 19 SpO2 Min: 99 % Max: 100 % Intake/Output Summary (Last 24 hours) at 11/10/08 0543 Last data filed at 11/10/08 0500 Gross per 24 hour Intake 3263.5 ml Output 1125 ml Net 2138.5 ml In: IVF: @75 Heparin at 400 U/hr Insulin at 2-3 U/hr overnight Out: UOP: 30-50 ml/hr Pain control: Dilaudid LABOR MEDIATOR Current hospital medications: acetaminophen (aka TYLENOL) tablet 650 mg, 650 mg, Oral, PRN, Sam Niño MD acetaminophen (aka TYLENOL) tablet 650 mg, 650 mg, Oral, Q4H PRN, Avery Almazan MD aspirin EC tablet 325 mg, 325 mg, Oral, DAILY, Avery lAmazan MD, Last Dose: 325 mg at 0 11/08/08 2200 bisacodyl (aka DULCOLAX) suppository 10 mg, 10 mg, Rectal, BID PRN, Avery Almazan MD dextrose 5%-lactated ringers IV, , Intravenous, CONTINUOUS, Jhon Payton MD, Last Rate: 75 mL/hr (11/09/08 0700) dextrose injection 25 mL, 25 mL, Intravenous, PRN, Avery Almazan MD diphenhydrAMINE (aka BENADRYL) capsule 50 mg, 50 mg, Oral, PRN, Sam Niño MD docusate sodium (aka COLACE) capsule 100 mg, 100 mg, Oral, BID PRN, Avery Almazan MD fluconazole (aka DIFLUCAN) tablet 200 mg, 200 mg, Oral, DAILY, Avery Almazan MD, Last D ose: 200 mg at 11/08/08 2200 glucagon (aka GLUCAGEN) injection 1 mg, 1 mg, Intramuscular, PRN, Avery Almazan MD glucose chewable tablet 15 g, 15 g, Oral, Q15MIN PRN, Avery Almazan MD heparin in D5W 100 units/mL IV infusion , 400 Units/hr, Intravenous, CONTINUOUS, Sam Niño MD, Last Rate: 4 mL/hr (11/09/08 1400), Last Dose: 400 Units/hr at 11/09/08 1400 HYDROmorphone 0.5 mg/mL LABOR MEDIATOR infusion (ADULT, Pyxis) , , Intravenous, CONTINUOUS, Sam Niño MD, Last Dose: 0.1 mg at 11/08/08 1600 insulin regular 1 unit/mL IV infusion (non-Pyxis) , 0.25-40 Units/hr, Intravenous, CONTINUO US, Avery Almazan MD, Last Rate: 2.5 mL/hr (11/09/08 1438), Last Dose: 2.5 Units/hr at 0 11/09/08 1438 medroxyPROGESTERone (aka PROVERA) tablet 20 mg, 20 mg, Oral, DAILY, Shelby Garcia MD, Las t Dose: 20 mg at 11/09/08 0400 naloxone (aka NARCAN) injection, , Intravenous, PRN, Sam Niño MD ondansetron (aka ZOFRAN) injection 4 mg, 4 mg, Intravenous, Q12H PRN, Avery Almazan MD, Last Dose: 4 mg at 11/08/08 0330 potassium chloride (aka KLOR-CON) packet 20 mEq, 20 mEq, Oral, DAILY, Jfef Garcia MD , Last Dose: 20 mEq at 11/09/08 0900 ranitidine (aka ZANTAC) IV 50 mg, 50 mg, Intravenous, Q8H, Avery Almazan MD, Last Dose: 50 mg at 11/09/08 0600 simethicone chew (aka MYLICON) tablet 80 mg, 80 mg, Oral, TID PRN, Avery Almazan MD simvastatin (aka ZOCOR) tablet 10 mg, 10 mg, Oral, QPM, Avery Almazan MD, Last Dose: 10 mg at 11/08/08 2100 Gen: NAD, resting comfortably Neuro: AOx3, no focal deficits HEENT: PERRL, EOMI, MMM Resp: CTA B CV: RRR Abd: Soft, NT/ND, +BS, no palpable organomegaly Ext: L forearm/wrist wrapped with dressing c/d/i, distal fingers dusky but unchanged, palpa ble radial pulse, Doppler signals in palmar arch ; lower ext with SCDs intact Lab: CBC with diff last 72 hours (or 3 results) Recent Labs Basename 11/10/08 0400 11/09/08199911/09/08 1334 11/09/08 0138 11/08/08 0340 WBC 16.6* -- -- 18.4* 21.9* HB 7.4* -- -- 8.0* 10.0* HCT 21.8* 19.9* 21.6* -- -- PLT 218 -- -- 168 233 NEUTROPERC 84* -- -- 71* 81* BANDPCT -- -- -- -- -- LYMPHPERC 13* -- -- 18 11* MONOPERC 3 -- -- 11* 7 BASOPERC 0 -- -- 1 2 EOSPERC 0* -- -- 0* 0* Chemistries: Last 72 Hours (or 3 results): Recent Labs Basename 11/10/08 0300 11/09/08 0138 11/08/08 0340 NA 139 142 138 K 3.5 3.6 4.7 CL 113* 117* 113* BICARB 22* 21* 18* BUN 4* 6 13 CR 0.54* 0.57* 0.55* GLU 67 76 263* CA 7.5* 7.0* 7.2* MG 2.2 1.5* 1.9 PO4 2.2* 2.9 4.0 Lab Results Lab Test Name Results Date/Time INR 1.28 11/09/08 APTT 31.1 11/10/08 FIBRINOGEN 281 11/09/08 Imaging: L forearm XR (11/07/08) - Normal left elbow and forearm. L hand XR (11/07/08) - Mild degenerative joint disease involving the distal interphalangeal j oints, the thumb interphalangeal joint and first carpometacarpal Joint. L elbow XR (11/07/08) - Normal left elbow and forearm. L brachial Arteriogram (11/07/08) - 1. extensive thrombosis of the left radial and ulnar jessica petey 2. Initiation of a fibrinolytic infusion with TPA CXR (11/08/08) - Wnl. Assessment & Plan: Neuro: No acute neurologic issues, pain well-controlled on Dilaudid LABOR MEDIATOR, resting comfortabl y post-op. Distal movement of L hand flexors/extensors intact, no intrinsic muscle function. CV: Mild episodes of hypotension overnight, responded well to 1L fluid bolus, Acute arter ial occlusion - treated with surgical embolectomy and repeat thrombectomy of left brachial/r adial/ulnar arteries, Doppler + signals and palpable pulses today. Hct trending down post-o p but stable since pRBC unit. On Heparin gtt, monitor for HTN and treat c/ metoprolol prn, ASA/Statin per Vascular Pulm: CTA B, no acute issues, good O2 sats, monitor GI: Pt started on clears, will advance to regular diet as tolerated. : Adequate UOP with intermittent IVF, will continue to monitor. Pt with h/o DUB worsened by heparin gtt, history of increased bleed over past month, USABILITY ARCHITECT consulted and started proge sterone, performed endometrial biopsy in OR, will monitor bleeding, decreasing in volume FEN: Switched to LR from NS, monitoring lytes, on clear diet advancing as tolerated Endo: on insulin infusion per ICU protocol, monitor CBGs ID: On fluconazole for possible vaginal Candidiasis, monitor sx Heme: Hct gradually decreasing in setting of blood loss from DUB and OR, transfused 1U pRBC s overnight, will monitor H/H. Prophylaxis: H2B, Heparin gtt, Insulin gtt, HOB 30deg Dispo: Transfer to floor with Vascular surgery oung, Doreen - 3:21 PM PDT TRAUMA/SURGICAL ICU PROGRESS NOTE BRIEF HISTORY: Kelly Mcclellan is a 53 y.o. Female who presented with acute L hand ischemia o n 10/28/08 after a horse bite to the left forearm. Pt is now s/p brachial, radial and ulnar embolectomies on 11/07/08 followed by emergency repeat revascularization on 11/08/08. Secondar y operation involved brachial, radial and ulnar arterial thrombectomies, extensor and flexor compartment fasciotomies, palmar fasciotomy and endometrial bx. HD: 3 ICU Day: 3 Post-op Day: 1 24 Hour Events: Pt doing well this morning, pain is adequately controlled on dilaudid LABOR MEDIATOR. L radial artery has had consistent signal overnight with Q1 hr doppler checks. Pt had 2 b rief episodes of hypotension overnight (low of 73/49) but responded well to 1L fluid boluses . She is tolerating CLD without difficulty. No acute events overnight. Exam: Vitals: Temp Min: 36.7 C (98.1 F) Max: 37.1 C (98.8 F) Pulse Min: 88 Max: 105 Systolic (24hrs), Min:73 mmHg, Max:122 mmHg Diastolic (24hrs), Min:38 mmHg, Max:69 mmHg Resp Min: 10 Max: 22 SpO2 Min: 98 % Max: 100 % I/Os: Intake/Output Summary (Last 24 hours) at 11/09/08 1521 Last data filed at 11/09/08 1500 Gross per 24 hour Intake 9385.5 ml Output 1530 ml Net 7855.5 ml In: IVF: @75 Heparin at 400 U/hr Insulin at 2-3 U/hr overnight 3U blood given in OR yesterday Out: UOP: 640 (30-40 ml/hr overnight) 500ml EBL in OR yesterday Pain control: Dilaudid LABOR MEDIATOR with doses of 0.1mg Current hospital medications: acetaminophen (aka TYLENOL) tablet 650 mg, 650 mg, Oral, PRN, Sam Niño MD acetaminophen (aka TYLENOL) tablet 650 mg, 650 mg, Oral, Q4H PRN, Avery Almazan MD aspirin EC tablet 325 mg, 325 mg, Oral, DAILY, Avery Almazan MD, Last Dose: 325 mg at 0 11/08/08 2200 bisacodyl (aka DULCOLAX) suppository 10 mg, 10 mg, Rectal, BID PRN, Avery Almazan MD dextrose 5%-lactated ringers IV, , Intravenous, CONTINUOUS, Jhon Payton MD, Last Rate: 75 mL/hr (11/09/08 0700) dextrose injection 25 mL, 25 mL, Intravenous, PRN, Avery Almazan MD diphenhydrAMINE (aka BENADRYL) capsule 50 mg, 50 mg, Oral, PRN, Sam Niño MD docusate sodium (aka COLACE) capsule 100 mg, 100 mg, Oral, BID PRN, Avery Almazan MD fluconazole (aka DIFLUCAN) tablet 200 mg, 200 mg, Oral, DAILY, Avery Almazan MD, Last D ose: 200 mg at 11/08/08 2200 glucagon (aka GLUCAGEN) injection 1 mg, 1 mg, Intramuscular, PRN, Avery Almazan MD glucose chewable tablet 15 g, 15 g, Oral, Q15MIN PRN, Avery Almazan MD heparin in D5W 100 units/mL IV infusion , 400 Units/hr, Intravenous, CONTINUOUS, Sam Niño MD, Last Rate: 4 mL/hr (11/09/08 1400), Last Dose: 400 Units/hr at 11/09/08 1400 HYDROmorphone 0.5 mg/mL LABOR MEDIATOR infusion (ADULT, Pyxis) , , Intravenous, CONTINUOUS, aSm Niño MD, Last Dose: 0.1 mg at 11/08/08 1600 insulin regular 1 unit/mL IV infusion (non-Pyxis) , 0.25-40 Units/hr, Intravenous, CONTINUO US, Avery Almazan MD, Last Rate: 2.5 mL/hr (11/09/08 1438), Last Dose: 2.5 Units/hr at 0 11/09/08 1438 medroxyPROGESTERone (aka PROVERA) tablet 20 mg, 20 mg, Oral, DAILY, Shelby Garcia MD, Las t Dose: 20 mg at 11/09/08 0400 naloxone (aka NARCAN) injection, , Intravenous, PRN, Sam Niño MD ondansetron (aka ZOFRAN) injection 4 mg, 4 mg, Intravenous, Q12H PRN, Avery Almazan MD, Last Dose: 4 mg at 11/08/08 0330 potassium chloride (aka KLOR-CON) packet 20 mEq, 20 mEq, Oral, DAILY, Jeff Garcia MD , Last Dose: 20 mEq at 11/09/08 0900 ranitidine (aka ZANTAC) IV 50 mg, 50 mg, Intravenous, Q8H, Avery Almazan MD, Last Dose: 50 mg at 11/09/08 0600 simethicone chew (aka MYLICON) tablet 80 mg, 80 mg, Oral, TID PRN, Avery Almazan MD simvastatin (aka ZOCOR) tablet 10 mg, 10 mg, Oral, QPM, Avery Almazan MD, Last Dose: 10 mg at 11/08/08 2100 Gen: Pt sleepy but arousable, lying in bed in NAD Neuro: AAOx3 HEENT: EOMI, MMM Resp: CTAB, symmetric expansion, no wheezes CV: RRR Abd: Soft, NTND, +BS, no palpable organomegaly Ext: L forearm/wrist wrapped with dressing c/d/i, distal fingers visible, dusky but unchang ed overnight; lower ext with scds intact, distal pulses non-palpable. Lab: Recent Labs Basename 11/09/08 1334 11/09/08 0812 11/09/08 0646 11/09/08 0138 11/08/08 0340 11/08/08 0048 WBC -- -- -- 18.4* 21.9* 16.6* HB -- -- -- 8.0* 10.0* 7.2* HCT 21.6* 22.7* 21.4* -- -- -- PLT -- -- -- 168 233 365 Recent Labs Basename 11/09/08 0646 11/08/08 0340 INR 1.28* 1.38* APTT 42.7* 33.7 FIBRINOGEN 281 153* Recent Labs Basename 11/09/08 0138 11/08/08 0340 11/07/08 0606 11/06/08 2158 NA 142 138 135 -- K 3.6 4.7 3.6 -- CL 117* 113* 103 -- BICARB 21* 18* 23 -- BUN 6 13 13 -- CR 0.57* 0.55* 0.65 0.85|0.85 GLU 76 263* 296* -- CA 7.0* 7.2* 8.8 -- MG 1.5* 1.9 2.3 -- PO4 2.9 4.0 3.1 -- Recent Labs Basename 11/06/08 2158 ALB 2.9* PREALB -- CRP -- Recent Labs Basename 11/06/08 215 AST 14* ALT 18 TBILI 1.0 DIRBILI -- AP 103* TP 7.5 No results found for this basename: TROPONIN:3,CK:3 in the last 72 hours Imaging: L forearm XR (11/07/08) - Normal left elbow and forearm. L hand XR (11/07/08) - Mild degenerative joint disease involving the distal interphalangeal j oints, the thumb interphalangeal joint and first carpometacarpal Joint. L elbow XR (11/07/08) - Normal left elbow and forearm. L brachial Arteriogram (11/07/08) - 1. extensive thrombosis of the left radial and ulnar jessica petey 2. Initiation of a fibrinolytic infusion with TPA CXR (11/08/08) - Wnl. Assessment & Plan: Neuro: Pt alert and oriented. Pain adequately controlled on dilaudid LABOR MEDIATOR with 0.1 mg dosin g. Distal movement of L hand flexors/extensors intact. CV: Pt had a few episodes of hypotension overnight, responded well to 1L boluses of fluid r esustitation. Will cont with volume for pressure support, no additional pressors necessary at this time. Will cont to monitor. Pulm: Pt satting well at 100% on 2LNC overnight. Non-labored respirations. CXR yesterday showed no evidence of pulmonary disease. GI: Pt tolerating CLD, will advance pt to regular diet as tolerated. : UOP adequate overnight. No evidence of renal dysfunction. FEN: Mg and Phose repletion ordered this am. Will cont IVF since patient appears to respon d to fluid resuscitation for pressure support. Also, will add additional replacements for f luid lost at wound site. Transfusion of 1U PRBCs ordered today by vascular team. Endo: Serum glc well controlled on ICU insulin protocol. Pt required 2-3 U/hr insulin over night. ID: Pt afebrile, wbc decreased to 18.4 today (21.9 yesterday). No evidence of erythema or infection around surgical sites although forearm fasciotomy is still open. Vascular team is performing daily dressing changes. Will cont to monitor. Heme: Hct decreased following OR yesterday, 23.6 this morning down from 23.6 pre-op. Pt levi d been trending down since admission, likely related to vaginal bleeding - nuclear reactor engineer following. 1U PRBCs ordered by vascular team today for anemia. Pt still on heparin infusion in L for earm/hand at 400 U/hr. Prophylaxis: Pt is on ranitidine for GI ppx, scds for VTE ppx. Dispo: ICU care. Avery Lopez MD - 11/09/2008 7:01 AM PDT11:12 AM, AVERY ALMAZAN MD, Resident Note S: Agree with excellent MSIV note by Willard. This morning the patient is doing well. She is sedated but cooperative. Pain is managed well with IV medication. See Willard note for ex tensive information regarding wound dressing changes and examinations. O: AF/VSS, see Wlilard note for extensive documentation regarding wound care and examination this morning. Gen: Sedated, NAD Pulm: CTAB CVS: RRR, no M Abd: Soft, no TTP Wound: As described in Willard note. A/P: 53y/o female with thrombectomy and fasciotomies aimed at revitalizing the hand, but t o this point with clear cyanosis of the fingers and decreased functional capacity of the hastings d with obvious necrotic tissue intraoperatively. 1) Transfuse 1U for anemia 2) Appreciate drum builder/onc management of intrauterine bleeding. Uterine artery embolization i f necessary for acute bleed. 3) Continue daily dressing changes of fasciotomies and surgical incisions per vascular flores rgery. 4) Appreciate SICU team active management of ongoing critical care issues. Avery Almazan MS, MD Neurological Surgery, PGY-1 [phone]) Nasra Gaona Md - 11/09/2008 7:01 AM PDT VASCULAR SURGERY PROGRESS NOTE: Attending Physician: Roc Rae MD 11/09/2008 Subjective: Pt went to surgery yesterday for second attempt at revascularization. Pt was determined to have compartment syndrome of the forearm and hand. Palmar compartment, forearm flexor and ex tensor compartment fasciotomies performed. Necrotic muscle was found. The extensor compartme nt was reapproximated with suture while the flexor compartment was left open with bulging mu scle. Overnight, pt continues to experience heavy vaginal bleeding. Medications: Current hospital medications: acetaminophen (aka TYLENOL) tablet 650 mg, 650 mg, Oral, PRN, Sam Niño MD acetaminophen (aka TYLENOL) tablet 650 mg, 650 mg, Oral, Q4H PRN, Avery Almazan MD aspirin EC tablet 325 mg, 325 mg, Oral, DAILY, Avery Almazan MD, Last Dose: 325 mg at 0 11/08/08 2200 bisacodyl (aka DULCOLAX) suppository 10 mg, 10 mg, Rectal, BID PRN, Avery Almazan MD dextrose 5%-lactated ringers IV, , Intravenous, CONTINUOUS, Jhon Payton MD dextrose injection 25 mL, 25 mL, Intravenous, PRN, Avery Almazan MD diphenhydrAMINE (aka BENADRYL) capsule 50 mg, 50 mg, Oral, PRN, Sam Niño MD docusate sodium (aka COLACE) capsule 100 mg, 100 mg, Oral, BID PRN, Avery Almazan MD fluconazole (aka DIFLUCAN) tablet 200 mg, 200 mg, Oral, DAILY, Avery Almazan MD, Last D ose: 200 mg at 11/08/08 2200 glucagon (aka GLUCAGEN) injection 1 mg, 1 mg, Intramuscular, PRN, Avery Almazan MD glucose chewable tablet 15 g, 15 g, Oral, Q15MIN PRN, Avery Almazan MD heparin in D5W 100 units/mL IV infusion , 400 Units/hr, Intravenous, CONTINUOUS, Sam Niño MD, Last Rate: 4 mL/hr (11/09/08599), Last Dose: 400 Units/hr at 11/09/08 06 HYDROmorphone 0.5 mg/mL LABOR MEDIATOR infusion (ADULT, Pyxis) , , Intravenous, CONTINUOUS, Sam Niño MD, Last Dose: 0.1 mg at 11/08/08 1600 insulin regular 1 unit/mL IV infusion (non-Pyxis) , 0.25-40 Units/hr, Intravenous, CONTINUO US, Avery Almazan MD, Last Rate: 2 mL/hr (11/09/08599), Last Dose: 2 Units/hr at 11/09 06 medroxyPROGESTERone (aka PROVERA) tablet 20 mg, 20 mg, Oral, DAILY, Shelby Garcia MD, Las t Dose: 20 mg at 11/09/08 0400 naloxone (aka NARCAN) injection, , Intravenous, PRN, Sam Niño MD ondansetron (aka ZOFRAN) injection 4 mg, 4 mg, Intravenous, Q12H PRN, Avery Almazan MD, Last Dose: 4 mg at 11/08/08 0330 PHENylephrine 0.2 mg/mL in NaCl 0.9% IV infusion (Pyxis) , .02-2 mcg/kg/min, Intravenous, C ONTINUOUS, Malik Rae MD, Last Rate: 10.4 mL/hr (11/08/08 1600), Last Dose: 0.5 mcg/k g/min at 11/08/08 1600 ranitidine (aka ZANTAC) IV 50 mg, 50 mg, Intravenous, Q8H, Avery Almazan MD, Last Dose: 50 mg at 11/08/08 2200 simethicone chew (aka MYLICON) tablet 80 mg, 80 mg, Oral, TID PRN, Avery Almazan MD simvastatin (aka ZOCOR) tablet 10 mg, 10 mg, Oral, QPM, Avery Almazan MD, Last Dose: 10 mg at 11/08/08 2100 Objective: Systolic (24hrs), Min:73 mmHg, Max:121 mmHg Diastolic (24hrs), Min:38 mmHg, Max:69 mmHg Pulse Min: 88 Max: 105 Temp Min: 36.7 C (98.1 F) Max: 37.1 C (98.8 F) Resp Min: 11 Max: 22 SpO2 Min: 98 % Max: 100 % Intake/Output Summary (Last 24 hours) at 11/09/08 0701 Last data filed at 11/09/08 0600 Gross per 24 hour Intake 8127.5 ml Output 1210 ml Net 6917.5 ml Physical Exam: General: Alert and oriented, no acute distress Respiratory: CTA bilaterally. Cardiovascular: RRR no murmurs Abdomen: Soft, NTND. Wound: the volar aspect incision in the forearm is pink with viable appearing tissue, no f ibrinous exudate, packing is wet with serous exudate and there are no local signs of infecti on. The dorsal surgical incision of the forearm is c/d/i and primarily approximated with sk in stitches. Extremities: Lower extremities are warm and well perfused, with 2+-3+ edema bilaterally, L DP/PT doppler signal, R PT doppler signal present, right brachial/radial/ulnar doppler sign als The left forearm is left open with a surgical wound as described above, the contents of the forearm is swollen , the finger tips are blue without cap refill. Pt has minimal flexion o f the fingers this morning and reports non-painful sensation at the finger tips. There is a palpable L radial pulse and a biphasic doppler signal. Wound dressing changes: She was pre-treated with 0.5mg Dilaudid IV. The wound materials w ere removed in a non-sterile manner and the wounds inspected to reveal exam as above. Xerof orm gauze was used to overlay the large forearm defect and ABD pad over that. Small pieces of xeroform were overlayed within the palmar fasciotomies with 4X4 overlayed there. A full kerlix is placed in the palm of the hand to maintain the hand in the neutral position. A ke rlix was used to wrap the dressing in place. Labs: Chemistries: Recent Labs Basename 11/09/0813711/08/0833911/07/08 0606 NA 142 138 135 K 3.6 4.7 3.6 CL 117* 113* 103 BICARB 21* 18* 23 BUN 6 13 13 CR 0.57* 0.55* 0.65 GLU 76 263* 296* CA 7.0* 7.2* 8.8 MG 1.5* 1.9 2.3 PO4 2.9 4.0 3.1 CBC with diff Recent Labs Basename 11/09/0813711/08/08202311/08/0833911/08/08 0048 WBC 18.4* -- 21.9* 16.6* HB 8.0* -- 10.0* 7.2* HCT 23.6* 26.8* 29.8* -- PLT 168 -- 233 365 NEUTROPERC 71* -- 81* 81* BANDPCT -- -- -- -- LYMPHPERC 18 -- 11* 12* MONOPERC 11* -- 7 7 BASOPERC 1 -- 2 0 EOSPERC 0* -- 0* 0* Coag Lab Results Component Value Date INR 1.38 11/08/08 INR 1.09 11/06/08 CBG's CBG Result ($) Min: 85 Max: 156 LastCBG CBG Result ($): 137 (11/09/08 6:00 AM) CBG Intervention: Medication given (11/09/08 4:00 AM) Assessment and Plan: Kelly Mcclellan is a 53 y.o. female who is on HD# 3, POD #2 and 1 s/p thrombectomy and fascio tomies. 1) F/u uterine mass bx, drum builder team contining to follow pt for extensive transvaginal hemorrh age, concern for sarcoma v. Bleeding fibroid. Plan for US v. MRI to evaluate, IR embolizatio n if acute bleeding episode presents. 2) Transfuse 1U PRBC today. 3) Will continue daily dressing changes 4) We will continue to monitor closely in the ICU. Nasra Lamar, MSIV hon Payton MD - 11/09/2008 6:10 AM PDTFormatting of this note might be different fro m the original. TRAUMA/SURGICAL ICU PROGRESS NOTE BRIEF HISTORY: Kelly Mcclellan is a 53 y.o. Female with acute occlusion of left ulnar artery s/p crush injury when bitten by horse on left forearm ICU Day: 3 Procedures: 11/07 Embolectomy/angio, 11/08 thrombectomy left brachial/radial/ulnar arteries - fasciiotomy - endometrial biopsy Post-op Day: 1 24 Hour Events: Decreased vaginal bleeding overnight, pain well-controlled on Dilaudid LABOR MEDIATOR , monitoring H/H. Distal signals intact in left radial artery with Q1 doppler checks overni ght, no acute events Exam: Vitals: Temp Min: 36.7 C (98.1 F) Max: 37.1 C (98.8 F) Pulse Min: 88 Max: 105 Systolic (24hrs), Min:73 mmHg, Max:122 mmHg Diastolic (24hrs), Min:38 mmHg, Max:69 mmHg Resp Min: 10 Max: 22 SpO2 Min: 98 % Max: 100 % I/Os: Intake/Output Summary (Last 24 hours) at 11/09/08 1521 Last data filed at 11/09/08 1500 Gross per 24 hour Intake 9385.5 ml Output 1530 ml Net 7855.5 ml In: IVF: @75 Heparin at 400 U/hr Insulin at 2-3 U/hr overnight Out: UOP: 640 (30-40 ml/hr overnight) 500ml EBL in OR yesterday Pain control: Dilaudid LABOR MEDIATOR with doses of 0.1mg Current hospital medications: acetaminophen (aka TYLENOL) tablet 650 mg, 650 mg, Oral, PRN, Sam Niño MD acetaminophen (aka TYLENOL) tablet 650 mg, 650 mg, Oral, Q4H PRN, Avery Almazan MD aspirin EC tablet 325 mg, 325 mg, Oral, DAILY, Avery Almazan MD, Last Dose: 325 mg at 0 11/08/08 2200 bisacodyl (aka DULCOLAX) suppository 10 mg, 10 mg, Rectal, BID PRN, Avery Almazan MD dextrose 5%-lactated ringers IV, , Intravenous, CONTINUOUS, Jhon Payton MD, Last Rate: 75 mL/hr (11/09/08 0700) dextrose injection 25 mL, 25 mL, Intravenous, PRN, Avery Almazan MD diphenhydrAMINE (aka BENADRYL) capsule 50 mg, 50 mg, Oral, PRN, Sam Niño MD docusate sodium (aka COLACE) capsule 100 mg, 100 mg, Oral, BID PRN, Avery Almazan MD fluconazole (aka DIFLUCAN) tablet 200 mg, 200 mg, Oral, DAILY, Avery Almazan MD, Last D ose: 200 mg at 11/08/08 2200 glucagon (aka GLUCAGEN) injection 1 mg, 1 mg, Intramuscular, PRN, Avery Almazan MD glucose chewable tablet 15 g, 15 g, Oral, Q15MIN PRN, Avery Almazan MD heparin in D5W 100 units/mL IV infusion , 400 Units/hr, Intravenous, CONTINUOUS, Sam Niño MD, Last Rate: 4 mL/hr (11/09/08 1400), Last Dose: 400 Units/hr at 11/09/08 1400 HYDROmorphone 0.5 mg/mL LABOR MEDIATOR infusion (ADULT, Pyxis) , , Intravenous, CONTINUOUS, Sam Niño MD, Last Dose: 0.1 mg at 11/08/08 1600 insulin regular 1 unit/mL IV infusion (non-Pyxis) , 0.25-40 Units/hr, Intravenous, CONTINUO US, Avery Almazan MD, Last Rate: 2.5 mL/hr (11/09/08 1438), Last Dose: 2.5 Units/hr at 0 11/09/08 1438 medroxyPROGESTERone (aka PROVERA) tablet 20 mg, 20 mg, Oral, DAILY, Shelby Garcia MD, Las t Dose: 20 mg at 11/09/08 0400 naloxone (aka NARCAN) injection, , Intravenous, PRN, Sam Niño MD ondansetron (aka ZOFRAN) injection 4 mg, 4 mg, Intravenous, Q12H PRN, Avery Almazan MD, Last Dose: 4 mg at 11/08/08 0330 potassium chloride (aka KLOR-CON) packet 20 mEq, 20 mEq, Oral, DAILY, Jeff Garcia MD , Last Dose: 20 mEq at 11/09/08 0900 ranitidine (aka ZANTAC) IV 50 mg, 50 mg, Intravenous, Q8H, Avery Almazan MD, Last Dose: 50 mg at 11/09/08 0600 simethicone chew (aka MYLICON) tablet 80 mg, 80 mg, Oral, TID PRN, Avery Almazan MD simvastatin (aka ZOCOR) tablet 10 mg, 10 mg, Oral, QPM, Avery Almazan MD, Last Dose: 10 mg at 11/08/08 2100 Gen: NAD, resting comfortably Neuro: AOx3, no focal deficits HEENT: PERRL, EOMI, MMM Resp: CTA B CV: RRR Abd: Soft, NT/ND, +BS, no palpable organomegaly Ext: L forearm/wrist wrapped with dressing c/d/i, distal fingers visible, dusky but unchang ed overnight; lower ext with SCDs intact Lab: Recent Labs Basename 11/09/08 1334 11/09/08 0812 11/09/08 0646 11/09/08 0138 11/08/08 0340 11/08/08 004 8 WBC -- -- -- 18.4* 21.9* 16.6* HB -- -- -- 8.0* 10.0* 7.2* HCT 21.6* 22.7* 21.4* -- -- -- PLT -- -- -- 168 233 365 Recent Labs Basename 11/09/08 0646 11/08/08 0340 INR 1.28* 1.38* APTT 42.7* 33.7 FIBRINOGEN 281 153* Recent Labs Basename 11/09/08 0138 11/08/08 0340 11/07/08 0606 11/06/08 2158 NA 142 138 135 -- K 3.6 4.7 3.6 -- CL 117* 113* 103 -- BICARB 21* 18* 23 -- BUN 6 13 13 -- CR 0.57* 0.55* 0.65 0.85|0.85 GLU 76 263* 296* -- CA 7.0* 7.2* 8.8 -- MG 1.5* 1.9 2.3 -- PO4 2.9 4.0 3.1 -- Recent Labs Basename 11/06/08 2158 ALB 2.9* PREALB -- CRP -- Recent Labs Basename 11/06/08 2158 AST 14* ALT 18 TBILI 1.0 DIRBILI -- AP 103* TP 7.5 Imaging: L forearm XR (11/07/08) - Normal left elbow and forearm. L hand XR (11/07/08) - Mild degenerative joint disease involving the distal interphalangeal j oints, the thumb interphalangeal joint and first carpometacarpal Joint. L elbow XR (11/07/08) - Normal left elbow and forearm. L brachial Arteriogram (11/07/08) - 1. extensive thrombosis of the left radial and ulnar jessica petey 2. Initiation of a fibrinolytic infusion with TPA CXR (11/08/08) - Wnl. Assessment & Plan: Neuro: No acute neurologic issues, pain well-controlled on Dilaudid LABOR MEDIATOR, resting comfortabl y post-op. Distal movement of L hand flexors/extensors intact. CV: Mild episodes of hypotension overnight, responded well to 1L fluid bolus, Acute arter ial occlusion - treated with surgical embolectomy and repeat thrombectomy of left brachial/r adial/ulnar arteries, Doppler + signals and palpable pulses today. Hct trending down post-o p but HD stable. On Heparin gtt, monitor for HTN and treat c/ metoprolol prn, ASA/Statin pe r Vascular Pulm: CTA B, no acute issues, good O2 sats, monitor GI: Pt started on clears, will advance to regular diet as tolerated. : Adequate UOP with intermittent IVF, will continue to monitor. Pt with h/o DUB worsened by heparin gtt, history of increased bleed over past month, USABILITY ARCHITECT consulted and started proge sterone, performed endometrial biopsy in OR, will monitor bleeding FEN: Hyperchloremia/borderline hypernatremia, will switch to LR from NS, NPO pending Vascul ar recs Endo: on insulin infusion per ICU protocol, monitor CBGs ID: On fluconazole for possible vaginal Candidiasis, monitor sx Heme: Hct gradually decreasing in setting of blood loss from DUB and OR, will monitor Prophylaxis: H2B, Heparin gtt, Insulin gtt, HOB 30deg Dispo: Cont ICU care oble, Sam Sumner MD - 11/08/2008 8:40 PM PDT Vascular Surgery Progress Note: 24hr events/Subjective: To OR yesterday. Had doppler signals postoperatively, but signals lost postoperatively. Had hypotension and significant vaginal bleeding. Pt given fluids an d transfused. Went back to OR today for revascularization, fascitotomies, and EUA (speculum ) and attempted endometrial biopsy. Last Vitals: BP 113/69 | Pulse 104 | Temp 36.8 C (98.2 F) | Resp 16 | Wt 69.3 kg (152 l b 12.5 oz) | SpO2 100% 24 Hour Vital Min/Max: Systolic (24hrs), Min:72 mmHg, Max:158 mmHg Diastolic (24hrs), Min:26 mmHg, Max:75 mmHg Pulse Min: 80 Max: 105 Temp Min: 36.2 C (97.2 F) Max: 36.8 C (98.2 F) Resp Min: 10 Max: 22 SpO2 Min: 98 % Max: 100 % Intake/Output Summary (Last 24 hours) at 11/08/08 2041 Last data filed at 11/08/08 1900 Gross per 24 hour Intake 8509 ml Output 1115 ml Net 7394 ml Gen: No acute distress. Ext: LUE: dressed w/saturation of dressing. +doppler signal of radial artery, +radial pulse . Digits 3-5 cyanotic. Chemistries: Last 72 Hours (or 3 results): Recent Labs Basename 11/08/08 0340 11/07/08 0606 11/06/08 2158 NA 138 135 135|135 K 4.7 3.6 4.1|4.1 CL 113* 103 103|103 BICARB 18* 23 18*|18* BUN 13 13 17|17 CR 0.55* 0.65 0.85|0.85 GLU 263* 296* 352*|352* CA 7.2* 8.8 8.9|8.9 MG 1.9 2.3 -- PO4 4.0 3.1 -- Liver Tests: Last 72 hours (or 3 results) Recent Labs Basename 11/06/08 2158 AST 14* ALT 18 TBILI 1.0 AP 103* ALB 2.9* TP 7.5 CBC with diff last 72 hours (or 3 results) Recent Labs Basename 11/08/08 0340 11/08/08 0048 11/07/08 1829 11/07/08 0606 WBC 21.9* 16.6* -- 15.6*|15.6* HB 10.0* 7.2* -- 7.6*|7.6* HCT 29.8* 21.8* 26.6* -- PLT 233 365 -- 531*|531* NEUTROPERC 81* 81* -- 72* BANDPCT -- -- -- -- LYMPHPERC 11* 12* -- 20 MONOPERC 7 7 -- 7 BASOPERC 2 0 -- 0 EOSPERC 0* 0* -- 0* Lab Results Component Value Date INR 1.38 11/08/08 Meds: acetaminophen (aka TYLENOL) tablet 650 mg, 650 mg, Oral, PRN acetaminophen (aka TYLENOL) tablet 650 mg, 650 mg, Oral, Q4H PRN aspirin EC tablet 325 mg, 325 mg, Oral, DAILY bisacodyl (aka DULCOLAX) suppository 10 mg, 10 mg, Rectal, BID PRN dextrose injection 25 mL, 25 mL, Intravenous, PRN diphenhydrAMINE (aka BENADRYL) capsule 50 mg, 50 mg, Oral, PRN docusate sodium (aka COLACE) capsule 100 mg, 100 mg, Oral, BID PRN fluconazole (aka DIFLUCAN) tablet 200 mg, 200 mg, Oral, DAILY glucagon (aka GLUCAGEN) injection 1 mg, 1 mg, Intramuscular, PRN glucose chewable tablet 15 g, 15 g, Oral, Q15MIN PRN heparin in D5W 100 units/mL IV infusion , 400 Units/hr, Intravenous, CONTINUOUS HYDROmorphone 0.5 mg/mL LABOR MEDIATOR infusion (ADULT, Pyxis) , , Intravenous, CONTINUOUS HYDROmorphone LABOR MEDIATOR infusion, , , insulin regular 1 unit/mL IV infusion (non-Pyxis) , 0.25-40 Units/hr, Intravenous, CONTINUO US medroxyPROGESTERone (aka PROVERA) tablet 20 mg, 20 mg, Oral, DAILY NaCl 0.9%-KCl 20 mEq/L IV, , Intravenous, CONTINUOUS naloxone (aka NARCAN) injection, , Intravenous, PRN ondansetron (aka ZOFRAN) injection 4 mg, 4 mg, Intravenous, Q12H PRN PHENylephrine 0.2 mg/mL in NaCl 0.9% IV infusion (Pyxis) , .02-2 mcg/kg/min, Intravenous, C ONTINUOUS ranitidine (aka ZANTAC) IV 50 mg, 50 mg, Intravenous, Q8H simethicone chew (aka MYLICON) tablet 80 mg, 80 mg, Oral, TID PRN simvastatin (aka ZOCOR) tablet 10 mg, 10 mg, Oral, QPM A/P: Kelly Mcclellan is a 53 y.o. female POD#1/0 s/p brachial, radial, ulnar arterial thrombe ctomies, extensor and flexor compartment fasciotomies, palmar fasciotomy and endometrial bio psy. Neuro: pain control via LABOR MEDIATOR. Resp: Mobilize. CV: Permissive HTN. Keep SBP btw 120s-160s. Give fluids before pressors. GI/Hep: Stable. Ok for clears. Will advance in am. Vasc: Will cont to assess hand. Pt may need amputation in future, but will allow time for hand to declare itself. Cont heparin at 400U/hr. No need for PTT. Renal: Good UOP. Cont jefferson. Heme: Vag bleeding - Pt followed by [employer]. Per [employer] if pt has significant rebleed Angio/IR em bolization of uterine artery vs hysterectomy. Will discuss role of imaging (MRI) to aid [employer] management as concern exists for poss sarcoma vs fibroid. Transfuse as needed. ID: Afebrile, +leukocytosis. Will cont to monitor. Will not start abx at this time. Dispo: Cont ICU care. Sam Niño M.D. General Surgery Resident [facility] Pager: [phone] Jhon Peter MD - 11/08/2008 5:54 PM PDTSoelena PACU Anesthesiology Staff Postop Note Awake, alert VSS after uneventful GA/ETT. CXR shows Right IJ 3-lumen CVP in place. No PNX or hemothorax A- Stable. Good central line placement with no apparent complications. P- Okay to use central line. May d/c once satisfies criteria. Naga Ball MD - 11/08/2008 6:21 AM PDTFormat ting of this note might be different from the original. TRAUMA/SURGICAL ICU PROGRESS NOTE BRIEF HISTORY: Kelly Mcclellan is a 53 y.o. Female with acute occlusion of left ulnar artery s/p crush injury when bitten by horse on left forearm ICU Day: 2 Procedures: 11/07 Embolectomy left brachial, radial, ulnar arteries Post-op Day: 1 24 Hour Events: Continued uterine bleeding overnight with transfusion of total 3U pRBCs, m onitoring H/H. No distal pulses in left upper extremity and continued cyanosis of 4/5th dig its. Exam: Vitals: Temp Min: 36.2 C (97.2 F) Max: 36.7 C (98.1 F) Pulse Min: 77 Max: 97 Systolic (24hrs), Min:72 mmHg, Max:175 mmHg Diastolic (24hrs), Min:26 mmHg, Max:122 mmHg Resp Min: 10 Max: 21 SpO2 Min: 94 % Max: 100 % Gen: NAD, resting Neuro: AOx3, conversant HEENT: PERRL, EOMI, OP clear Respiratory: CTA B, no w/r/r Cardiovascular: RRR no m/r/g Abdomen: Soft, NT/ND. Extremities: Left hand cyanotic, no pulses appreciated, delayed cap refill, makes fist and spreads fingers, decreased sensation, I/Os: Intake/Output Summary (Last 24 hours) at 11/08/08620 Last data filed at 11/08/08 0535 Gross per 24 hour Intake 4629.5 ml Output 1310 ml Net 3319.5 ml In: MIVF: NS c/ 20KCl @ 75ml/hr Out: UO/hr: 25-100mL/hr Drips: Pain Control: Hydromorphone Insulin @ 5.5units/hr Heparin @ 400units/hr Current hospital medications: acetaminophen (aka TYLENOL) tablet 650 mg, 650 mg, Oral, PRN, Sam Niño MD acetaminophen (aka TYLENOL) tablet 650 mg, 650 mg, Oral, Q4H PRN, Avery Almazan MD aspirin EC tablet 325 mg, 325 mg, Oral, DAILY, Avery Almazan MD, Last Dose: 325 mg at 0 11/07/08 0900 bisacodyl (aka DULCOLAX) suppository 10 mg, 10 mg, Rectal, BID PRN, Avery Almazan MD dextrose injection 25 mL, 25 mL, Intravenous, PRN, Avery Almazan MD diphenhydrAMINE (aka BENADRYL) capsule 50 mg, 50 mg, Oral, PRN, Sam Niño MD docusate sodium (aka COLACE) capsule 100 mg, 100 mg, Oral, BID PRN, Avery Almazan MD fentanyl (aka SUBLIMAZE) injection, , , , fluconazole (aka DIFLUCAN) tablet 200 mg, 200 mg, Oral, DAILY, Avery Almazan MD glucagon (aka GLUCAGEN) injection 1 mg, 1 mg, Intramuscular, PRN, Avery Almazan MD glucose chewable tablet 15 g, 15 g, Oral, Q15MIN PRN, Avery Almazan MD heparin in D5W 100 units/mL IV infusion , 400 Units/hr, Intravenous, CONTINUOUS, Sam Niño MD, Last Rate: 4 mL/hr (11/08/08 0500), Last Dose: 400 Units/hr at 11/08/08 0500 HYDROmorphone (aka DILAUDID) injection 0.2-1 mg, .2-1 mg, Intravenous, Q2H PRN, Chandrakant riley MD, Last Dose: 0.2 mg at 11/08/08 0315 insulin regular 1 unit/mL IV infusion (non-Pyxis) , 0.25-40 Units/hr, Intravenous, CONTINUO US, Avery Almazan MD, Last Rate: 5.5 mL/hr (11/08/08 0535), Last Dose: 5.5 Units/hr at 0 11/08/08 0535 medroxyPROGESTERone (aka PROVERA) tablet 20 mg, 20 mg, Oral, DAILY, Shelby Garcia MD, Las t Dose: 20 mg at 11/08/08 0400 metoprolol (aka LOPRESSOR) tablet 25 mg, 25 mg, Oral, BID, Avery Almazan MD, Last Dose: 25 mg at 11/07/08 0900 NaCl 0.9%-KCl 20 mEq/L IV, , Intravenous, CONTINUOUS, Sam Niño MD, Last Rate: 75 m L/hr (11/08/08 0502) ondansetron (aka ZOFRAN) injection 4 mg, 4 mg, Intravenous, Q12H PRN, Avery Almazan MD, Last Dose: 4 mg at 11/08/08 0330 oxycodone immediate release (aka ROXICODONE) tablet 5-15 mg, 5-15 mg, Oral, Q4H PRN, Sandra Almazan MD, Last Dose: 5 mg at 11/07/08 1452 ranitidine (aka ZANTAC) IV 50 mg, 50 mg, Intravenous, Q8H, Avery Almazan MD, Last Dose: 50 mg at 11/07/08 1400 simethicone chew (aka MYLICON) tablet 80 mg, 80 mg, Oral, TID PRN, Avery Almazan MD simvastatin (aka ZOCOR) tablet 10 mg, 10 mg, Oral, QPM, Avery Almazan MD, Last Dose: 10 mg at 11/06/08 2223 Lab: Recent Labs Basename 11/08/08 0340 11/08/08 0048 11/07/08 1829 11/07/08 0606 11/06/08 2158 WBC -- 16.6* -- 15.6*|15.6* 23.1* HB 10.0* 7.2* -- 7.6*|7.6* -- HCT 29.8* 21.8* 26.6* -- -- PLT -- 365 -- 531*|531* 603* Recent Labs Basename 11/08/08 0340 11/07/08 1829 11/06/082157 INR 1.38* -- 1.09 APTT 33.7 30.0 -- FIBRINOGEN 153* -- -- Recent Labs Basename 11/08/08 0340 11/07/08 0606 11/06/088 NA 138 135 135|135 K 4.7 3.6 4.1|4.1 CL 113* 103 103|103 BICARB 18* 23 18*|18* BUN 13 13 17|17 CR 0.55* 0.65 0.85|0.85 GLU 263* 296* 352*|352* CA 7.2* 8.8 8.9|8.9 MG 1.9 2.3 -- PO4 4.0 3.1 -- Recent Labs Basename 11/06/082157 ALB 2.9* PREALB -- CRP -- Recent Labs Basename 11/06/082157 AST 14* ALT 18 TBILI 1.0 DIRBILI -- AP 103* TP 7.5 CBG Result ($) Min: 164 Max: 446 LastCBG CBG Result ($): 247 (11/08/08 5:35 AM) Assessment & Plan: Neuro: No acute neurologic issues, pain well-controlled, resting comfortably Resp: CTA B, no acute issues, good O2 sats, monitor CV: Acute arterial occlusion - treated with surgical embolectomy of left brachial/radial/ul chika arteries, but remains pulseless distally, still on heparin gtt per Vascular surgery, con tinue to follow blood flow and sensation/function. Will return to OR emergently this AM c/ Vascular for possible bypass. Will treat HTN with metoprolol, on Statin, ASA per Vascular r ecs GI: Remains NPO for return to OR, H2B : Adequate UOP, will continue to monitor. Pt with h/o DUB worsened by heparin gtt, histo ry of increased bleed over past month, USABILITY ARCHITECT consulted and recommended progesterone - will per form biopsy in OR, will monitor bleeding FEN: Hyponatremia, resolved. on MIVF c/ NS c/ 20KCl @ 75mL/hr, NPO pending return to OR Endo: on insulin infusion per ICU protocol, monitor CBGs ID: On fluconazole for possible vaginal Candidiasis, monitor sx Heme: Received 1U pRBCs intraoperatively yesterday, 2 addl units in ICU, Hct improved appro priately, will monitor Prophylaxis: H2B, Heparin gtt, Insulin gtt, HOB 30deg Dispo: Cont ICU care SICU Attending Note Date and Time(s) seen: 11/08/2008 AM Rounds I saw and evaluated the patient with the resident. I agree with the findings and the plan of care as documented in the resident s note. NAGA CHANG MD service center technician Trauma/Critical Care Misbah Wheat MD - 11/07/2008 11:30 PM PDTINPATIENT BRIEF OPERATIVE NOTE Procedure Date: Author: MISBAH QUIJANO MD Attending Physician: Susannah Assistants: Celia Niño Prior to the beginning of the procedure the team paused to verify the patient's identity, a s well as the procedure to be performed and the correct side/site. All equipment required w as ready and available. The patient was positioned appropriately. Preoperative Diagnosis: ischemic left hand Postoperative Diagnosis: same Procedure Performed: Embolectomy left brachial, radial and ulnar arteries Estimated Blood Loss: 50cc from operative site; She has vigorous bleeding from her vagina Fluids: 1 unit prbcs 1liter crystalloid Specimens: clot Complications: none known Drains: none Disposition: PACU Findings: There was no pulse in the brachial artery at the elbow with initial exposure. Th ere was old clot in the brachial radial and ulnar arteries with passage of the [place] ter. Very good inflow re-established with brachial thrombectomy. Good back bleeding from r adial and ulnar arteries after removal of clot from each. Doppler signal over radial artery just above the wrist at the end of case. No Doppler signal at the ulnar artery at the wris t. Her palm was much more pink with reasonable capillary refill over the thenar and hypothe chika areas. She is having significant bleeding from the vagina from unknown reason. We will leave her on 400 units an hour of heparin through the catheter and ask USABILITY ARCHITECT to see her. We will stop the TPA given the rapidity of the vaginal bleeding. Plan to perform an angiogram i n the morning. MISBAH QUIJANO MD Avery Lopez MD - 11/07/2008 8:42 PM PDT 8:42 PM, AVERY ALMAZAN MD, Resident Note VASCULAR SURGERY PROGRESS NOTE: Attending Physician: Roc Rae MD 11/07/2008 Subjective: No nausea overnight, but some this morning. Pt was switched to an insulin gtt due to hard to control blood glucose. Glycemia team to see patient early this morning. Hand surgery co nsulted for recommendations but they will watch for now. CXR normal, EKG normal. Consented and marked for surgery. Medications: Current hospital medications: acetaminophen (aka TYLENOL) tablet 650 mg, 650 mg, Oral, PRN, Sam Niño MD acetaminophen (aka TYLENOL) tablet 650 mg, 650 mg, Oral, PRN, Sam Niño MD acetaminophen (aka TYLENOL) tablet 650 mg, 650 mg, Oral, Q4H PRN, Avery Almazan MD alteplase (aka CATHFLO ACTIVASE) injection 4 mg, 4 mg, Intracatheter, ONCE, Sam Niño MD alteplase 50 mg/L in NaCl 0.9 % IV infusion, 1 mg/hr, Intra-arterial, CONTINUOUS, Clyde velásquez MD, Last Rate: 20 mL/hr (11/07/08 1300), Last Dose: 1 mg/hr at 11/07/08 1300 aspirin EC tablet 325 mg, 325 mg, Oral, DAILY, Avery Almazan MD, Last Dose: 325 mg at 0 11/07/08 0900 bisacodyl (aka DULCOLAX) suppository 10 mg, 10 mg, Rectal, BID PRN, Avery Almazan MD dextrose injection 25 mL, 25 mL, Intravenous, PRN, Avery Almazan MD diphenhydrAMINE (aka BENADRYL) capsule 50 mg, 50 mg, Oral, PRN, Sam Niño MD diphenhydrAMINE (aka BENADRYL) capsule 50 mg, 50 mg, Oral, PRN, Sam Niño MD docusate sodium (aka COLACE) capsule 100 mg, 100 mg, Oral, BID PRN, Avery Almazan MD fentanyl (aka SUBLIMAZE) injection 50 mcg, 50 mcg, Intravenous, Q2H PRN, Avery Almazan MD fluconazole (aka DIFLUCAN) tablet 200 mg, 200 mg, Oral, DAILY, Avery Almazan MD glucagon (aka GLUCAGEN) injection 1 mg, 1 mg, Intramuscular, PRN, Avery Almazan MD glucose chewable tablet 15 g, 15 g, Oral, Q15MIN PRN, Avery Almazan MD heparin in D5W 100 units/mL IV infusion , 400 Units/hr, Intravenous, CONTINUOUS, Yvette freeman MD, Last Rate: 4 mL/hr (11/07/082001), Last Dose: 400 Units/hr at 11/07/082001 HYDROmorphone (aka DILAUDID) injection 0.5-1.5 mg, .5-1.5 mg, Intravenous, Q3H PRN, Sam Niño MD, Last Dose: 0.2 mg at 11/07/08 194 insulin regular 1 unit/mL IV infusion (non-Pyxis) , 0.25-40 Units/hr, Intravenous, CONTINUO US, Avery Almazan MD, Last Rate: 6 mL/hr (11/07/082001), Last Dose: 6 Units/hr at 11/07 metoprolol (aka LOPRESSOR) injection 5 mg, 5 mg, Intravenous, Q4H PRN, Sam Niño MD metoprolol (aka LOPRESSOR) tablet 25 mg, 25 mg, Oral, BID, Avery Almazan MD, Last Dose: 25 mg at 11/07/08 0900 NaCl 0.9%-KCl 20 mEq/L IV, , Intravenous, CONTINUOUS, Avery Almazan MD, Last Rate: 75 mL/hr (11/07/08 1510) ondansetron (aka ZOFRAN) injection 4 mg, 4 mg, Intravenous, Q12H PRN, Avery Almazan MD oxycodone immediate release (aka ROXICODONE) tablet 5-15 mg, 5-15 mg, Oral, Q4H PRN, Sandra Almazan MD, Last Dose: 5 mg at 11/07/08 1452 ranitidine (aka ZANTAC) IV 50 mg, 50 mg, Intravenous, Q8H, Avery Almazan MD, Last Dose: 50 mg at 11/07/08 1400 simethicone chew (aka MYLICON) tablet 80 mg, 80 mg, Oral, TID PRN, Avery Almazan MD simvastatin (aka ZOCOR) tablet 10 mg, 10 mg, Oral, QPM, Avery Almazan MD, Last Dose: 10 mg at 11/06/08 2223 Objective: Systolic (24hrs), Min:123 mmHg, Max:175 mmHg Diastolic (24hrs), Min:68 mmHg, Max:122 mmHg Pulse Min: 77 Max: 110 Temp Min: 36.2 C (97.2 F) Max: 37 C (98.6 F) Resp Min: 13 Max: 18 SpO2 Min: 94 % Max: 100 % Intake/Output Summary (Last 24 hours) at 11/07/082042 Last data filed at 11/07/082001 Gross per 24 hour Intake 2530 ml Output 2375 ml Net 155 ml Physical Exam: General: Alert and oriented Respiratory: CTA bilaterally. Cardiovascular: RRR no M Abdomen: Soft, NTND. Extremities: left hand is cyanotic in the morning but with better function than upon admis rosangela. She is able to make a fist, though with minimal strength, and spread her fingers as w ell. She is becoming increasingly desensate. Pulse is palpable in the brachial artery on t he left. The other extremities are without notable abnormality. Labs: Chemistries: Recent Labs Basename 11/07/0860511/06/082157 NA 135 135|135 K 3.6 4.1|4.1 CL 103 103|103 BICARB 23 18*|18* BUN 13 17|17 CR 0.65 0.85|0.85 GLU 296* 352*|352* CA 8.8 8.9|8.9 MG 2.3 -- PO4 3.1 -- CBC with diff Recent Labs Basename 11/07/08 1829 11/07/0860511/06/082157 WBC -- 15.6*|15.6* 23.1* HB -- 7.6*|7.6* 8.3* HCT 26.6* 23.5*|23.5* 25.6* PLT -- 531*|531* 603* NEUTROPERC -- 72* 88* BANDPCT -- -- -- LYMPHPERC -- 20 8* MONOPERC -- 7 4 BASOPERC -- 0 0 EOSPERC -- 0* 0* Coag Lab Results Component Value Date INR 1.09 11/06/08 CBG's CBG Result ($) Min: 164 Max: 500 LastCBG CBG Result ($): 164 (11/07/08 8:02 PM) Assessment and Plan: Kelly Mcclellan is a 53 y.o. female who is on HD# 1, POD #0 S/P angiography and tPa catheter intraarterial infusion with worsening of the clinical exam throughout the day. 1) To the OR now for thrombectomy and possible revascularization. 2) Appreciate glycemic team consult and sugar management. 3) Consult to gynecology regarding ongoing women's health issues and management of presum ed uterine bleeding while giving heparin. Fluconazole now for empiric therapy of vaginal can didiasis. 4) Pt was transfused one unit today. Additional blood available in the OR. Avery Almazan MS, MD Neurological Surgery, PGY-[phone] Eduardo Carias - 10/2008 2:41 PM PDTTransthoracic echocardiogram completed. Final report to follow. Clyde Royal MD - 10/2008 10:45 AM PDTBRIEF INTERVENTIONAL RADIOLOGY PROCEDURE NOTE DATE: 11/07/2008 10:45 AM PROCEDURE: LUE angiogram and thrombolysis PRE-PROCEDURE DIAGNOSIS: left ulnar artery occlusion POST-PROCEDURE DIAGNOSIS: occlusion of left ulnar and radial arteries IR STAFF: Bolivar Maradiaga MD IR FELLOW: Renée Murillo MD ACCESS: R [employer]CHOR MEDICATIONS: Fentanyl 100 mcg IV Versed 2 mg IV Heparin 200 u IV TPA 12 mg IA Zofran 4 mg IV COMPLICATION(S): None immediate FINDINGS: 1. Occlusion of both left radial and ulnar arteries. 2. 6 mg TPA was infused in each radial and ulnar artery during the procedure. 3. TPA infusion catheter was left in the left brachial artery. TPA is being infused at 1 m g/hr. Full report forthcoming. Tasha Christianson - 10/2008 9:06 AM PDTPt in OR today for vascular surgery, will hold eval until tomorrow, 11/08 . Pager #[phone] signed by Tasha Lopez at 11/07/2008 9:07 AM Ulysses Black MD - 11/07/2008 7:19 AM PDT Orthopaedic Progress Note: Subjective: Planned for OR today with Vascular surgery. Objective: Wt 69.3 kg (152 lbs 12.5 oz)( < 3 %ile), BP 127/85, Pulse 88, Temperature 36.8 C (98.2 F), RR 16, SpO2 100%. 24 hour Vitals min/max :Temp Min: 36.6 C (97.9 F) Max: 37 C (98.6 F) Left upper extremity - Digits dusky colored and cool to touch Motor: Deltoid Biceps Triceps Wrist Ext Digit Abd Shaft Headman - 5 5 5 5 4 - = Not examined Sensory: Dec sens over digits distally Vascular: Palpable radial pulse, capillary refill dec in digits Assesment/Plan: 53yo F with ulnar artery oculsion. Dec in blood supply to hand and digits can clinically pr esent with motor and sens deficits. It appears that pt does have improvement in motor functi on and ulnar nerve intact. If there is partial nerve injury would observe at this point and not indicated for surgical exploration. Sign off, call with questions. documented in this enc ounter Plan of Treatment + +---------+--------+ + + | Name | Type | Priori | Associated Diagnoses | Date/Time | | | | ty | | | + +---------+--------+ + + | GENERAL OTHER | Imaging | Routin | | 11/08/2008 2:51 PM | | STUDIES | | e | | PDT | + +---------+--------+ + + + +------+--------+ + + | Name | Type | Priori | Associated Diagnoses | Order Schedule | | | | ty | | | + +------+--------+ + + | COAGULOPATHY PANEL | Lab | Extrem | | Lab Add Ons for 1 | | (INR,APTT,FIBRINOGEN | | e | | Occurrences starting | | ) | | Emerge | | 11/09/2008 until | | | | ncy | | 11/09/2008 | + +------+--------+ + + documented as of this encounter Procedures + +--------+ + + + | Procedure Name | Priori | Date/Time | Associated Diagnosis | Comments | | | ty | | | | + +--------+ + + + | PROCEDURE NOTE | Routin | 04/05/2015 | | Results for this | | | e | 12:25 PM | | procedure are in the | | | | PST | | results section. | + +--------+ + + + | PROCEDURE NOTE | Routin | 04/05/2015 | | Results for this | | | e | 12:25 PM | | procedure are in the | | | | PST | | results section. | + +--------+ + + + | PROCEDURE NOTE | Routin | 04/05/2015 | | Results for this | | | e | 12:25 PM | | procedure are in the | | | | PST | | results section. | + +--------+ + + + | PROCEDURE NOTE | Routin | 04/05/2015 | | Results for this | | | e | 12:15 PM | | procedure are in the | | | | PST | | results section. | + +--------+ + + + | [place] MYOMECTOMY | Routin | 04/05/2015 | | Results for this | | 1-4,W/TOT | e | 12:12 PM | | procedure are in the | | 250GMS/<,ABD APPRCH | | PST | | results section. | + +--------+ + + + | ANESTHESIA/SEDATION | | 12/06/2008 | | Results for this | | | | 10:10 AM | | procedure are in the | | | | PDT | | results section. | + +--------+ + + + | PATHOLOGY | | 12/06/2008 | | Results for this | | | | 10:10 AM | | procedure are in the | | | | PDT | | results section. | + +--------+ + + + | RADIOLOGY | | 12/06/2008 | | Results for this | | | | 10:10 AM | | procedure are in the | | | | PDT | | results section. | + +--------+ + + + | OPERATION RECORD | | 12/06/2008 | | Results for this | | | | 10:09 AM | | procedure are in the | | | | PDT | | results section. | + +--------+ + + + | OPERATION RECORD | | 12/06/2008 | | Results for this | | | | 10:09 AM | | procedure are in the | | | | PDT | | results section. | + +--------+ + + + | ANESTHESIA/SEDATION | | 12/06/2008 | | Results for this | | | | 10:09 AM | | procedure are in the | | | | PDT | | results section. | + +--------+ + + + | ANESTHESIA/SEDATION | | 12/06/2008 | | Results for this | | | | 10:09 AM | | procedure are in the | | | | PDT | | results section. | + +--------+ + + + | ANESTHESIA/SEDATION | | 12/06/2008 | | Results for this | | | | 10:09 AM | | procedure are in the | | | | PDT | | results section. | + +--------+ + + + | OPERATION RECORD | | 12/06/2008 | | Results for this | | | | 10:09 AM | | procedure are in the | | | | PDT | | results section. | + +--------+ + + + | ANESTHESIA/SEDATION | | 12/06/2008 | | Results for this | | | | 10:09 AM | | procedure are in the | | | | PDT | | results section. | + +--------+ + + + | ANESTHESIA/SEDATION | | 12/06/2008 | | Results for this | | | | 10:09 AM | | procedure are in the | | | | PDT | | results section. | + +--------+ + + + | ANESTHESIA/SEDATION | | 12/06/2008 | | Results for this | | | | 10:09 AM | | procedure are in the | | | | PDT | | results section. | + +--------+ + + + | ANESTHESIA/SEDATION | | 12/06/2008 | | Results for this | | | | 10:09 AM | | procedure are in the | | | | PDT | | results section. | + +--------+ + + + | ANESTHESIA/SEDATION | | 12/06/2008 | | Results for this | | | | 10:09 AM | | procedure are in the | | | | PDT | | results section. | + +--------+ + + + | ANESTHESIA/SEDATION | | 12/06/2008 | | Results for this | | | | 10:09 AM | | procedure are in the | | | | PDT | | results section. | + +--------+ + + + | OPERATION RECORD | | 12/06/2008 | | Results for this | | | | 10:09 AM | | procedure are in the | | | | PDT | | results section. | + +--------+ + + + | OPERATION RECORD | | 12/06/2008 | | Results for this | | | | 10:09 AM | | procedure are in the | | | | PDT | | results section. | + +--------+ + + + | OPERATION RECORD | | 12/06/2008 | | Results for this | | | | 10:09 AM | | procedure are in the | | | | PDT | | results section. | + +--------+ + + + | ANESTHESIA/SEDATION | | 12/06/2008 | | Results for this | | | | 10:09 AM | | procedure are in the | | | | PDT | | results section. | + +--------+ + + + | ANESTHESIA/SEDATION | | 12/06/2008 | | Results for this | | | | 10:09 AM | | procedure are in the | | | | PDT | | results section. | + +--------+ + + + | ANESTHESIA/SEDATION | | 12/06/2008 | | Results for this | | | | 10:09 AM | | procedure are in the | | | | PDT | | results section. | + +--------+ + + + | TRANSTHORACIC | | 12/06/2008 | | Results for this | | ECHOCARDIOGRAM, | | 10:08 AM | | procedure are in the | | ADULT | | PDT | | results section. | + +--------+ + + + | INR | Routin | 12/04/2008 | | Results for this | | | e | 9:42 AM | | procedure are in the | | | | PDT | | results section. | + +--------+ + + + | BASIC METABOLIC SET | Routin | 12/04/2008 | | Results for this | | (NA, K, CL, TCO2, | e | 9:42 AM | | procedure are in the | | BUN, CR, GLU, CA) | | PDT | | results section. | + +--------+ + + + | CBC ONLY | Routin | 12/04/2008 | | Results for this | | | e | 9:42 AM | | procedure are in the | | | | PDT | | results section. | + +--------+ + + + | PHOSPHORUS, PLASMA | Routin | 12/04/2008 | | Results for this | | | e | 9:42 AM | | procedure are in the | | | | PDT | | results section. | + +--------+ + + + | MAGNESIUM, PLASMA | Routin | 12/04/2008 | | Results for this | | | e | 9:42 AM | | procedure are in the | | | | PDT | | results section. | + +--------+ + + + | INR | Routin | 12/03/2008 | | Results for this | | | e | 7:17 AM | | procedure are in the | | | | PDT | | results section. | + +--------+ + + + | BASIC METABOLIC SET | Routin | 12/03/2008 | | Results for this | | (NA, K, CL, TCO2, | e | 7:17 AM | | procedure are in the | | BUN, CR, GLU, CA) | | PDT | | results section. | + +--------+ + + + | CBC ONLY | Routin | 12/03/2008 | | Results for this | | | e | 7:17 AM | | procedure are in the | | | | PDT | | results section. | + +--------+ + + + | PHOSPHORUS, PLASMA | Routin | 12/03/2008 | | Results for this | | | e | 7:17 AM | | procedure are in the | | | | PDT | | results section. | + +--------+ + + + | MAGNESIUM, PLASMA | Routin | 12/03/2008 | | Results for this | | | e | 7:17 AM | | procedure are in the | | | | PDT | | results section. | + +--------+ + + + | INR | Routin | 12/02/2008 | | Results for this | | | e | 6:08 AM | | procedure are in the | | | | PDT | | results section. | + +--------+ + + + | BASIC METABOLIC SET | Routin | 12/02/2008 | | Results for this | | (NA, K, CL, TCO2, | e | 6:08 AM | | procedure are in the | | BUN, CR, GLU, CA) | | PDT | | results section. | + +--------+ + + + | CBC ONLY | Routin | 12/02/2008 | | Results for this | | | e | 6:08 AM | | procedure are in the | | | | PDT | | results section. | + +--------+ + + + | PHOSPHORUS, PLASMA | Routin | 12/02/2008 | | Results for this | | | e | 6:08 AM | | procedure are in the | | | | PDT | | results section. | + +--------+ + + + | MAGNESIUM, PLASMA | Routin | 12/02/2008 | | Results for this | | | e | 6:08 AM | | procedure are in the | | | | PDT | | results section. | + +--------+ + + + | INR | Routin | 12/01/2008 | | Results for this | | | e | 7:08 AM | | procedure are in the | | | | PDT | | results section. | + +--------+ + + + | BASIC METABOLIC SET | Routin | 12/01/2008 | | Results for this | | (NA, K, CL, TCO2, | e | 7:08 AM | | procedure are in the | | BUN, CR, GLU, CA) | | PDT | | results section. | + +--------+ + + + | CBC ONLY | Routin | 12/01/2008 | | Results for this | | | e | 7:08 AM | | procedure are in the | | | | PDT | | results section. | + +--------+ + + + | PHOSPHORUS, PLASMA | Routin | 12/01/2008 | | Results for this | | | e | 7:08 AM | | procedure are in the | | | | PDT | | results section. | + +--------+ + + + | MAGNESIUM, PLASMA | Routin | 12/01/2008 | | Results for this | | | e | 7:08 AM | | procedure are in the | | | | PDT | | results section. | + +--------+ + + + | INR | Routin | 11/30/2008 | | Results for this | | | e | 5:36 AM | | procedure are in the | | | | PDT | | results section. | + +--------+ + + + | BASIC METABOLIC SET | Routin | 11/30/2008 | | Results for this | | (NA, K, CL, TCO2, | e | 5:36 AM | | procedure are in the | | BUN, CR, GLU, CA) | | PDT | | results section. | + +--------+ + + + | CBC ONLY | Routin | 11/30/2008 | | Results for this | | | e | 5:36 AM | | procedure are in the | | | | PDT | | results section. | + +--------+ + + + | PHOSPHORUS, PLASMA | Routin | 11/30/2008 | | Results for this | | | e | 5:36 AM | | procedure are in the | | | | PDT | | results section. | + +--------+ + + + | MAGNESIUM, PLASMA | Routin | 11/30/2008 | | Results for this | | | e | 5:36 AM | | procedure are in the | | | | PDT | | results section. | + +--------+ + + + | LAB OTHER | Routin | 11/29/2008 | | Results for this | | | e | 12:26 PM | | procedure are in the | | | | PDT | | results section. | + +--------+ + + + | PROTHROMBIN GENE | Routin | 11/29/2008 | | Results for this | | MUTATION, BLOOD | e | 12:25 PM | | procedure are in the | | | | PDT | | results section. | + +--------+ + + + | FACTOR V (5) LEIDEN | Routin | 11/29/2008 | | Results for this | | BLOOD | e | 12:25 PM | | procedure are in the | | | | PDT | | results section. | + +--------+ + + + | PROTEIN C ACTIVITY | Routin | 11/29/2008 | | Results for this | | REFLEX INR, PLASMA | e | 12:25 PM | | procedure are in the | | | | PDT | | results section. | + +--------+ + + + | LUPUS INHIBITOR | Routin | 11/29/2008 | | Results for this | | EVALUATION WITH | e | 12:25 PM | | procedure are in the | | REFLEXES | | PDT | | results section. | + +--------+ + + + | ANTICARDIOLIPIN | Routin | 11/29/2008 | | Results for this | | IGG/M | e | 12:25 PM | | procedure are in the | | | | PDT | | results section. | + +--------+ + + + | PROTEIN S ANTIGEN , | Routin | 11/29/2008 | | Results for this | | FREE PLASMA | e | 12:25 PM | | procedure are in the | | | | PDT | | results section. | + +--------+ + + + | ANTI NUCLEAR AB | Routin | 11/29/2008 | | Results for this | | SCREEN, SERUM | e | 12:25 PM | | procedure are in the | | | | PDT | | results section. | + +--------+ + + + | RHEUMATOID FACTOR, | Routin | 11/29/2008 | | Results for this | | SERUM | e | 12:25 PM | | procedure are in the | | | | PDT | | results section. | + +--------+ + + + | C-REACTIVE PROTEIN | Routin | 11/29/2008 | | Results for this | | | e | 12:25 PM | | procedure are in the | | | | PDT | | results section. | + +--------+ + + + | SEDIMENTATION RATE | Routin | 11/29/2008 | | Results for this | | | e | 12:25 PM | | procedure are in the | | | | PDT | | results section. | + +--------+ + + + | BASIC METABOLIC SET | Routin | 11/29/2008 | | Results for this | | (NA, K, CL, TCO2, | e | 6:35 AM | | procedure are in the | | BUN, CR, GLU, CA) | | PDT | | results section. | + +--------+ + + + | CBC ONLY | Routin | 11/29/2008 | | Results for this | | | e | 6:35 AM | | procedure are in the | | | | PDT | | results section. | + +--------+ + + + | PHOSPHORUS, PLASMA | Routin | 11/29/2008 | | Results for this | | | e | 6:35 AM | | procedure are in the | | | | PDT | | results section. | + +--------+ + + + | MAGNESIUM, PLASMA | Routin | 11/29/2008 | | Results for this | | | e | 6:35 AM | | procedure are in the | | | | PDT | | results section. | + +--------+ + + + | LAB REPORTS | | 11/29/2008 | | Results for this | | | | 12:00 AM | | procedure are in the | | | | PDT | | results section. | + +--------+ + + + | BASIC METABOLIC SET | Routin | 11/28/2008 | | Results for this | | (NA, K, CL, TCO2, | e | 7:30 AM | | procedure are in the | | BUN, CR, GLU, CA) | | PDT | | results section. | + +--------+ + + + | CBC ONLY | Routin | 11/28/2008 | | Results for this | | | e | 7:30 AM | | procedure are in the | | | | PDT | | results section. | + +--------+ + + + | PHOSPHORUS, PLASMA | Routin | 11/28/2008 | | Results for this | | | e | 7:30 AM | | procedure are in the | | | | PDT | | results section. | + +--------+ + + + | MAGNESIUM, PLASMA | Routin | 11/28/2008 | | Results for this | | | e | 7:30 AM | | procedure are in the | | | | PDT | | results section. | + +--------+ + + + | PROTHROMBIN GENE | Urgent | 11/27/2008 | | Results for this | | MUTATION, BLOOD | | 2:01 PM | | procedure are in the | | | | PDT | | results section. | + +--------+ + + + | FACTOR V (5) LEIDEN | Urgent | 11/27/2008 | | Results for this | | BLOOD | | 2:01 PM | | procedure are in the | | | | PDT | | results section. | + +--------+ + + + | PROTEIN C ACTIVITY | Urgent | 11/27/2008 | | Results for this | | REFLEX INR, PLASMA | | 2:01 PM | | procedure are in the | | | | PDT | | results section. | + +--------+ + + + | LUPUS INHIBITOR | Urgent | 11/27/2008 | | Results for this | | EVALUATION WITH | | 2:01 PM | | procedure are in the | | REFLEXES | | PDT | | results section. | + +--------+ + + + | LUPUS INHIBITOR | Urgent | 11/27/2008 | | Results for this | | EVALUATION WITH | | 2:01 PM | | procedure are in the | | REFLEXES | | PDT | | results section. | + +--------+ + + + | ANTICARDIOLIPIN | Urgent | 11/27/2008 | | Results for this | | IGG/M | | 2:01 PM | | procedure are in the | | | | PDT | | results section. | + +--------+ + + + | PROTEIN S ANTIGEN , | Urgent | 11/27/2008 | | Results for this | | FREE PLASMA | | 2:01 PM | | procedure are in the | | | | PDT | | results section. | + +--------+ + + + | ANTI NUCLEAR AB | Urgent | 11/27/2008 | | Results for this | | SCREEN, SERUM | | 2:01 PM | | procedure are in the | | | | PDT | | results section. | + +--------+ + + + | RHEUMATOID FACTOR, | Urgent | 11/27/2008 | | Results for this | | SERUM | | 2:01 PM | | procedure are in the | | | | PDT | | results section. | + +--------+ + + + | TYPE AND SCREEN | Urgent | 11/27/2008 | | Results for this | | | | 10:04 AM | | procedure are in the | | | | PDT | | results section. | + +--------+ + + + | BASIC METABOLIC SET | Routin | 11/27/2008 | | Results for this | | (NA, K, CL, TCO2, | e | 7:16 AM | | procedure are in the | | BUN, CR, GLU, CA) | | PDT | | results section. | + +--------+ + + + | CBC ONLY | Routin | 11/27/2008 | | Results for this | | | e | 7:16 AM | | procedure are in the | | | | PDT | | results section. | + +--------+ + + + | PHOSPHORUS, PLASMA | Routin | 11/27/2008 | | Results for this | | | e | 7:16 AM | | procedure are in the | | | | PDT | | results section. | + +--------+ + + + | MAGNESIUM, PLASMA | Routin | 11/27/2008 | | Results for this | | | e | 7:16 AM | | procedure are in the | | | | PDT | | results section. | + +--------+ + + + | BASIC METABOLIC SET | Routin | 11/26/2008 | | Results for this | | (NA, K, CL, TCO2, | e | 6:47 AM | | procedure are in the | | BUN, CR, GLU, CA) | | PDT | | results section. | + +--------+ + + + | CBC ONLY | Routin | 11/26/2008 | | Results for this | | | e | 6:47 AM | | procedure are in the | | | | PDT | | results section. | + +--------+ + + + | PHOSPHORUS, PLASMA | Routin | 11/26/2008 | | Results for this | | | e | 6:47 AM | | procedure are in the | | | | PDT | | results section. | + +--------+ + + + | MAGNESIUM, PLASMA | Routin | 11/26/2008 | | Results for this | | | e | 6:47 AM | | procedure are in the | | | | PDT | | results section. | + +--------+ + + + | OPERATION RECORD | | 11/26/2008 | | Results for this | | | | 12:00 AM | | procedure are in the | | | | PDT | | results section. | + +--------+ + + + | BASIC METABOLIC SET | Routin | 11/25/2008 | | Results for this | | (NA, K, CL, TCO2, | e | 6:40 AM | | procedure are in the | | BUN, CR, GLU, CA) | | PDT | | results section. | + +--------+ + + + | CBC ONLY | Routin | 11/25/2008 | | Results for this | | | e | 6:40 AM | | procedure are in the | | | | PDT | | results section. | + +--------+ + + + | PHOSPHORUS, PLASMA | Routin | 11/25/2008 | | Results for this | | | e | 6:40 AM | | procedure are in the | | | | PDT | | results section. | + +--------+ + + + | MAGNESIUM, PLASMA | Routin | 11/25/2008 | | Results for this | | | e | 6:40 AM | | procedure are in the | | | | PDT | | results section. | + +--------+ + + + | BASIC METABOLIC SET | Routin | 11/24/2008 | | Results for this | | (NA, K, CL, TCO2, | e | 7:05 AM | | procedure are in the | | BUN, CR, GLU, CA) | | PDT | | results section. | + +--------+ + + + | CBC ONLY | Routin | 11/24/2008 | | Results for this | | | e | 7:05 AM | | procedure are in the | | | | PDT | | results section. | + +--------+ + + + | PHOSPHORUS, PLASMA | Routin | 11/24/2008 | | Results for this | | | e | 7:05 AM | | procedure are in the | | | | PDT | | results section. | + +--------+ + + + | MAGNESIUM, PLASMA | Routin | 11/24/2008 | | Results for this | | | e | 7:05 AM | | procedure are in the | | | | PDT | | results section. | + +--------+ + + + | BASIC METABOLIC SET | Routin | 11/23/2008 | | Results for this | | (NA, K, CL, TCO2, | e | 6:00 AM | | procedure are in the | | BUN, CR, GLU, CA) | | PDT | | results section. | + +--------+ + + + | CBC ONLY | Routin | 11/23/2008 | | Results for this | | | e | 6:00 AM | | procedure are in the | | | | PDT | | results section. | + +--------+ + + + | PHOSPHORUS, PLASMA | Routin | 11/23/2008 | | Results for this | | | e | 6:00 AM | | procedure are in the | | | | PDT | | results section. | + +--------+ + + + | MAGNESIUM, PLASMA | Routin | 11/23/2008 | | Results for this | | | e | 6:00 AM | | procedure are in the | | | | PDT | | results section. | + +--------+ + + + | TYPE AND SCREEN | Routin | 11/22/2008 | | Results for this | | | e | 8:10 AM | | procedure are in the | | | | PDT | | results section. | + +--------+ + + + | PRODUCT - RED CELLS | Routin | 11/22/2008 | | Results for this | | LEUKOREDUCED | e | 7:55 AM | | procedure are in the | | | | PDT | | results section. | + +--------+ + + + | PRODUCT - RED CELLS | Routin | 11/22/2008 | | Results for this | | LEUKOREDUCED | e | 7:55 AM | | procedure are in the | | | | PDT | | results section. | + +--------+ + + + | PRODUCT - RED CELLS | Routin | 11/22/2008 | | Results for this | | LEUKOREDUCED | e | 7:55 AM | | procedure are in the | | | | PDT | | results section. | + +--------+ + + + | PRODUCT - RED CELLS | Routin | 11/22/2008 | | Results for this | | LEUKOREDUCED | e | 7:55 AM | | procedure are in the | | | | PDT | | results section. | + +--------+ + + + | BASIC METABOLIC SET | Routin | 11/22/2008 | | Results for this | | (NA, K, CL, TCO2, | e | 4:30 AM | | procedure are in the | | BUN, CR, GLU, CA) | | PDT | | results section. | + +--------+ + + + | CBC ONLY | Routin | 11/22/2008 | | Results for this | | | e | 4:30 AM | | procedure are in the | | | | PDT | | results section. | + +--------+ + + + | PHOSPHORUS, PLASMA | Routin | 11/22/2008 | | Results for this | | | e | 4:30 AM | | procedure are in the | | | | PDT | | results section. | + +--------+ + + + | MAGNESIUM, PLASMA | Routin | 11/22/2008 | | Results for this | | | e | 4:30 AM | | procedure are in the | | | | PDT | | results section. | + +--------+ + + + | OPERATION RECORD | | 11/22/2008 | | Results for this | | | | 12:00 AM | | procedure are in the | | | | PDT | | results section. | + +--------+ + + + | OPERATION RECORD | | 11/22/2008 | | Results for this | | | | 12:00 AM | | procedure are in the | | | | PDT | | results section. | + +--------+ + + + | BIJAN, WOUND STEWARTI | Routin | 11/21/2008 | | Results for this | | & GS | e | 12:05 PM | | procedure are in the | | | | PDT | | results section. | + +--------+ + + + | PRODUCT - RED CELLS | Routin | 11/21/2008 | | Results for this | | LEUKOREDUCED | e | 10:01 AM | | procedure are in the | | | | PDT | | results section. | + +--------+ + + + | PRODUCT - RED CELLS | Routin | 11/21/2008 | | Results for this | | LEUKOREDUCED | e | 10:01 AM | | procedure are in the | | | | PDT | | results section. | + +--------+ + + + | TYPE AND SCREEN | Urgent | 11/21/2008 | | Results for this | | | | 9:35 AM | | procedure are in the | | | | PDT | | results section. | + +--------+ + + + | BASIC METABOLIC SET | Routin | 11/21/2008 | | Results for this | | (NA, K, CL, TCO2, | e | 4:41 AM | | procedure are in the | | BUN, CR, GLU, CA) | | PDT | | results section. | + +--------+ + + + | CBC ONLY | Routin | 11/21/2008 | | Results for this | | | e | 4:41 AM | | procedure are in the | | | | PDT | | results section. | + +--------+ + + + | PHOSPHORUS, PLASMA | Routin | 11/21/2008 | | Results for this | | | e | 4:41 AM | | procedure are in the | | | | PDT | | results section. | + +--------+ + + + | MAGNESIUM, PLASMA | Routin | 11/21/2008 | | Results for this | | | e | 4:41 AM | | procedure are in the | | | | PDT | | results section. | + +--------+ + + + | ANESTHESIA/SEDATION | | 11/21/2008 | | Results for this | | | | 12:00 AM | | procedure are in the | | | | PDT | | results section. | + +--------+ + + + | OPERATION RECORD | | 11/21/2008 | | Results for this | | | | 12:00 AM | | procedure are in the | | | | PDT | | results section. | + +--------+ + + + | SURGICAL PATHOLOGY | Routin | 11/21/2008 | | Results for this | | | e | | | procedure are in the | | | | | | results section. | + +--------+ + + + | BASIC METABOLIC SET | Routin | 11/20/2008 | | Results for this | | (NA, K, CL, TCO2, | e | 4:40 AM | | procedure are in the | | BUN, CR, GLU, CA) | | PDT | | results section. | + +--------+ + + + | CBC ONLY | Routin | 11/20/2008 | | Results for this | | | e | 4:40 AM | | procedure are in the | | | | PDT | | results section. | + +--------+ + + + | PHOSPHORUS, PLASMA | Routin | 11/20/2008 | | Results for this | | | e | 4:40 AM | | procedure are in the | | | | PDT | | results section. | + +--------+ + + + | MAGNESIUM, PLASMA | Routin | 11/20/2008 | | Results for this | | | e | 4:40 AM | | procedure are in the | | | | PDT | | results section. | + +--------+ + + + | BASIC METABOLIC SET | Routin | 11/19/2008 | | Results for this | | (NA, K, CL, TCO2, | e | 4:00 AM | | procedure are in the | | BUN, CR, GLU, CA) | | PDT | | results section. | + +--------+ + + + | CBC ONLY | Routin | 11/19/2008 | | Results for this | | | e | 4:00 AM | | procedure are in the | | | | PDT | | results section. | + +--------+ + + + | PHOSPHORUS, PLASMA | Routin | 11/19/2008 | | Results for this | | | e | 4:00 AM | | procedure are in the | | | | PDT | | results section. | + +--------+ + + + | MAGNESIUM, PLASMA | Routin | 11/19/2008 | | Results for this | | | e | 4:00 AM | | procedure are in the | | | | PDT | | results section. | + +--------+ + + + | BASIC METABOLIC SET | Routin | 11/18/2008 | | Results for this | | (NA, K, CL, TCO2, | e | 4:45 AM | | procedure are in the | | BUN, CR, GLU, CA) | | PDT | | results section. | + +--------+ + + + | CBC ONLY | Routin | 11/18/2008 | | Results for this | | | e | 4:45 AM | | procedure are in the | | | | PDT | | results section. | + +--------+ + + + | PHOSPHORUS, PLASMA | Routin | 11/18/2008 | | Results for this | | | e | 4:45 AM | | procedure are in the | | | | PDT | | results section. | + +--------+ + + + | MAGNESIUM, PLASMA | Routin | 11/18/2008 | | Results for this | | | e | 4:45 AM | | procedure are in the | | | | PDT | | results section. | + +--------+ + + + | BASIC METABOLIC SET | Routin | 11/17/2008 | | Results for this | | (NA, K, CL, TCO2, | e | 4:29 AM | | procedure are in the | | BUN, CR, GLU, CA) | | PDT | | results section. | + +--------+ + + + | CBC ONLY | Routin | 11/17/2008 | | Results for this | | | e | 4:29 AM | | procedure are in the | | | | PDT | | results section. | + +--------+ + + + | PHOSPHORUS, PLASMA | Routin | 11/17/2008 | | Results for this | | | e | 4:29 AM | | procedure are in the | | | | PDT | | results section. | + +--------+ + + + | MAGNESIUM, PLASMA | Routin | 11/17/2008 | | Results for this | | | e | 4:29 AM | | procedure are in the | | | | PDT | | results section. | + +--------+ + + + | BASIC METABOLIC SET | Routin | 11/16/2008 | | Results for this | | (NA, K, CL, TCO2, | e | 5:16 AM | | procedure are in the | | BUN, CR, GLU, CA) | | PDT | | results section. | + +--------+ + + + | CBC ONLY | Routin | 11/16/2008 | | Results for this | | | e | 5:16 AM | | procedure are in the | | | | PDT | | results section. | + +--------+ + + + | PHOSPHORUS, PLASMA | Routin | 11/16/2008 | | Results for this | | | e | 5:16 AM | | procedure are in the | | | | PDT | | results section. | + +--------+ + + + | MAGNESIUM, PLASMA | Routin | 11/16/2008 | | Results for this | | | e | 5:16 AM | | procedure are in the | | | | PDT | | results section. | + +--------+ + + + | TYPE AND SCREEN | Routin | 11/15/2008 | | Results for this | | | e | 2:00 PM | | procedure are in the | | | | PDT | | results section. | + +--------+ + + + | PRODUCT - RED CELLS | Routin | 11/15/2008 | | Results for this | | LEUKOREDUCED | e | 1:42 PM | | procedure are in the | | | | PDT | | results section. | + +--------+ + + + | PRODUCT - RED CELLS | Routin | 11/15/2008 | | Results for this | | LEUKOREDUCED | e | 1:42 PM | | procedure are in the | | | | PDT | | results section. | + +--------+ + + + | BASIC METABOLIC SET | Routin | 11/15/2008 | | Results for this | | (NA, K, CL, TCO2, | e | 5:35 AM | | procedure are in the | | BUN, CR, GLU, CA) | | PDT | | results section. | + +--------+ + + + | CBC ONLY | Routin | 11/15/2008 | | Results for this | | | e | 5:35 AM | | procedure are in the | | | | PDT | | results section. | + +--------+ + + + | PHOSPHORUS, PLASMA | Routin | 11/15/2008 | | Results for this | | | e | 5:35 AM | | procedure are in the | | | | PDT | | results section. | + +--------+ + + + | MAGNESIUM, PLASMA | Routin | 11/15/2008 | | Results for this | | | e | 5:35 AM | | procedure are in the | | | | PDT | | results section. | + +--------+ + + + | CULTURE, BLOOD BACTI | Routin | 11/14/2008 | | Results for this | | & YEAST | e | 7:36 AM | | procedure are in the | | | | PDT | | results section. | + +--------+ + + + | BASIC METABOLIC SET | Routin | 11/14/2008 | | Results for this | | (NA, K, CL, TCO2, | e | 5:04 AM | | procedure are in the | | BUN, CR, GLU, CA) | | PDT | | results section. | + +--------+ + + + | CBC ONLY | Routin | 11/14/2008 | | Results for this | | | e | 5:04 AM | | procedure are in the | | | | PDT | | results section. | + +--------+ + + + | CULTURE, BLOOD BACTI | Urgent | 11/14/2008 | | Results for this | | & YEAST | | 5:04 AM | | procedure are in the | | | | PDT | | results section. | + +--------+ + + + | PHOSPHORUS, PLASMA | Routin | 11/14/2008 | | Results for this | | | e | 5:04 AM | | procedure are in the | | | | PDT | | results section. | + +--------+ + + + | MAGNESIUM, PLASMA | Routin | 11/14/2008 | | Results for this | | | e | 5:04 AM | | procedure are in the | | | | PDT | | results section. | + +--------+ + + + | CULTURE, BLOOD BACTI | Routin | 11/13/2008 | | Results for this | | & YEAST | e | 2:45 PM | | procedure are in the | | | | PDT | | results section. | + +--------+ + + + | UA, DIPSTICK ONLY | Routin | 11/13/2008 | | Results for this | | | e | 11:06 AM | | procedure are in the | | | | PDT | | results section. | + +--------+ + + + | URINE, MICROSCOPIC | Routin | 11/13/2008 | | Results for this | | EXAM | e | 11:06 AM | | procedure are in the | | | | PDT | | results section. | + +--------+ + + + | URINE SCREEN FOR | Routin | 11/13/2008 | | Results for this | | CULTURE | e | 11:06 AM | | procedure are in the | | | | PDT | | results section. | + +--------+ + + + | CULTURE, URINE BACTI | Routin | 11/13/2008 | | Results for this | | | e | 11:06 AM | | procedure are in the | | | | PDT | | results section. | + +--------+ + + + | BASIC METABOLIC SET | Routin | 11/13/2008 | | Results for this | | (NA, K, CL, TCO2, | e | 5:09 AM | | procedure are in the | | BUN, CR, GLU, CA) | | PDT | | results section. | + +--------+ + + + | CBC ONLY | Routin | 11/13/2008 | | Results for this | | | e | 5:09 AM | | procedure are in the | | | | PDT | | results section. | + +--------+ + + + | PHOSPHORUS, PLASMA | Routin | 11/13/2008 | | Results for this | | | e | 5:09 AM | | procedure are in the | | | | PDT | | results section. | + +--------+ + + + | MAGNESIUM, PLASMA | Routin | 11/13/2008 | | Results for this | | | e | 5:09 AM | | procedure are in the | | | | PDT | | results section. | + +--------+ + + + | CBC ONLY | Urgent | 11/12/2008 | | Results for this | | | | 2:21 PM | | procedure are in the | | | | PDT | | results section. | + +--------+ + + + | BASIC METABOLIC SET | Routin | 11/12/2008 | | Results for this | | (NA, K, CL, TCO2, | e | 5:38 AM | | procedure are in the | | BUN, CR, GLU, CA) | | PDT | | results section. | + +--------+ + + + | CBC ONLY | Routin | 11/12/2008 | | Results for this | | | e | 5:38 AM | | procedure are in the | | | | PDT | | results section. | + +--------+ + + + | PHOSPHORUS, PLASMA | Routin | 11/12/2008 | | Results for this | | | e | 5:38 AM | | procedure are in the | | | | PDT | | results section. | + +--------+ + + + | MAGNESIUM, PLASMA | Routin | 11/12/2008 | | Results for this | | | e | 5:38 AM | | procedure are in the | | | | PDT | | results section. | + +--------+ + + + | HEMATOCRIT | Urgent | 11/11/2008 | | Results for this | | | | 4:28 PM | | procedure are in the | | | | PDT | | results section. | + +--------+ + + + | HEMATOCRIT | Urgent | 11/11/2008 | | Results for this | | | | 12:14 PM | | procedure are in the | | | | PDT | | results section. | + +--------+ + + + | TYPE AND SCREEN | Urgent | 11/11/2008 | | Results for this | | | | 6:50 AM | | procedure are in the | | | | PDT | | results section. | + +--------+ + + + | PRODUCT - RED CELLS | Routin | 11/11/2008 | | Results for this | | LEUKOREDUCED | e | 6:45 AM | | procedure are in the | | | | PDT | | results section. | + +--------+ + + + | PRODUCT - RED CELLS | Routin | 11/11/2008 | | Results for this | | LEUKOREDUCED | e | 6:45 AM | | procedure are in the | | | | PDT | | results section. | + +--------+ + + + | HEMATOCRIT | Urgent | 11/11/2008 | | Results for this | | | | 6:00 AM | | procedure are in the | | | | PDT | | results section. | + +--------+ + + + | EXTENDED DIFF | Routin | 11/11/2008 | | Results for this | | | e | 1:30 AM | | procedure are in the | | | | PDT | | results section. | + +--------+ + + + | MANUAL DIFFERENTIAL | Routin | 11/11/2008 | | Results for this | | | e | 1:30 AM | | procedure are in the | | | | PDT | | results section. | + +--------+ + + + | DIFFERENTIAL | Routin | 11/11/2008 | | Results for this | | | e | 1:30 AM | | procedure are in the | | | | PDT | | results section. | + +--------+ + + + | CBC, WITH | Routin | 11/11/2008 | | Results for this | | DIFFERENTIAL | e | 1:30 AM | | procedure are in the | | | | PDT | | results section. | + +--------+ + + + | BASIC METABOLIC SET | Routin | 11/11/2008 | | Results for this | | (NA, K, CL, TCO2, | e | 1:30 AM | | procedure are in the | | BUN, CR, GLU, CA) | | PDT | | results section. | + +--------+ + + + | PHOSPHORUS, PLASMA | Routin | 11/11/2008 | | Results for this | | | e | 1:30 AM | | procedure are in the | | | | PDT | | results section. | + +--------+ + + + | MAGNESIUM, PLASMA | Routin | 11/11/2008 | | Results for this | | | e | 1:30 AM | | procedure are in the | | | | PDT | | results section. | + +--------+ + + + | HEMATOCRIT | Urgent | 11/10/2008 | | Results for this | | | | 9:30 PM | | procedure are in the | | | | PDT | | results section. | + +--------+ + + + | HEMATOCRIT | Urgent | 11/10/2008 | | Results for this | | | | 5:00 PM | | procedure are in the | | | | PDT | | results section. | + +--------+ + + + | HEMATOCRIT | Urgent | 11/10/2008 | | Results for this | | | | 12:12 PM | | procedure are in the | | | | PDT | | results section. | + +--------+ + + + | US PORTABLE | Routin | 11/10/2008 | | Results for this | | TRANSVAGINAL | e | 11:55 AM | | procedure are in the | | | | PDT | | results section. | + +--------+ + + + | US PORTABLE PELVIS | Routin | 11/10/2008 | | Results for this | | COMPLETE | e | 11:30 AM | | procedure are in the | | | | PDT | | results section. | + +--------+ + + + | HEMATOCRIT | Urgent | 11/10/2008 | | Results for this | | | | 8:15 AM | | procedure are in the | | | | PDT | | results section. | + +--------+ + + + | DIFFERENTIAL | Routin | 11/10/2008 | | Results for this | | | e | 4:00 AM | | procedure are in the | | | | PDT | | results section. | + +--------+ + + + | CBC, WITH | Routin | 11/10/2008 | | Results for this | | DIFFERENTIAL | e | 4:00 AM | | procedure are in the | | | | PDT | | results section. | + +--------+ + + + | BASIC METABOLIC SET | Routin | 11/10/2008 | | Results for this | | (NA, K, CL, TCO2, | e | 3:00 AM | | procedure are in the | | BUN, CR, GLU, CA) | | PDT | | results section. | + +--------+ + + + | APTT (ACT. PART. | Routin | 11/10/2008 | | Results for this | | THROMBO TIME) | e | 3:00 AM | | procedure are in the | | | | PDT | | results section. | + +--------+ + + + | PHOSPHORUS, PLASMA | Routin | 11/10/2008 | | Results for this | | | e | 3:00 AM | | procedure are in the | | | | PDT | | results section. | + +--------+ + + + | MAGNESIUM, PLASMA | Routin | 11/10/2008 | | Results for this | | | e | 3:00 AM | | procedure are in the | | | | PDT | | results section. | + +--------+ + + + | PRODUCT - RED CELLS | Routin | 11/09/2008 | | Results for this | | LEUKOREDUCED | e | 10:45 PM | | procedure are in the | | | | PDT | | results section. | + +--------+ + + + | HEMATOCRIT | Urgent | 11/09/2008 | | Results for this | | | | 8:00 PM | | procedure are in the | | | | PDT | | results section. | + +--------+ + + + | HEMATOCRIT | Urgent | 11/09/2008 | | Results for this | | | | 4:00 PM | | procedure are in the | | | | PDT | | results section. | + +--------+ + + + | HEMATOCRIT | Urgent | 11/09/2008 | | Results for this | | | | 1:34 PM | | procedure are in the | | | | PDT | | results section. | + +--------+ + + + | HEMATOCRIT | Urgent | 11/09/2008 | | Results for this | | | | 8:12 AM | | procedure are in the | | | | PDT | | results section. | + +--------+ + + + | HEMATOCRIT | Urgent | 11/09/2008 | | Results for this | | | | 6:46 AM | | procedure are in the | | | | PDT | | results section. | + +--------+ + + + | COAGULOPATHY PANEL | Routin | 11/09/2008 | | Results for this | | (INR,APTT,FIBRINOGEN | e | 6:46 AM | | procedure are in the | | ) | | PDT | | results section. | + +--------+ + + + | DIFFERENTIAL | Routin | 11/09/2008 | | Results for this | | | e | 1:38 AM | | procedure are in the | | | | PDT | | results section. | + +--------+ + + + | CBC, WITH | Routin | 11/09/2008 | | Results for this | | DIFFERENTIAL | e | 1:38 AM | | procedure are in the | | | | PDT | | results section. | + +--------+ + + + | BASIC METABOLIC SET | Routin | 11/09/2008 | | Results for this | | (NA, K, CL, TCO2, | e | 1:38 AM | | procedure are in the | | BUN, CR, GLU, CA) | | PDT | | results section. | + +--------+ + + + | PHOSPHORUS, PLASMA | Routin | 11/09/2008 | | Results for this | | | e | 1:38 AM | | procedure are in the | | | | PDT | | results section. | + +--------+ + + + | MAGNESIUM, PLASMA | Routin | 11/09/2008 | | Results for this | | | e | 1:38 AM | | procedure are in the | | | | PDT | | results section. | + +--------+ + + + | OPERATION RECORD | | 11/09/2008 | | Results for this | | | | 12:00 AM | | procedure are in the | | | | PDT | | results section. | + +--------+ + + + | OPERATION RECORD | | 11/09/2008 | | Results for this | | | | 12:00 AM | | procedure are in the | | | | PDT | | results section. | + +--------+ + + + | HEMATOCRIT | Urgent | 11/08/2008 | | Results for this | | | | 8:24 PM | | procedure are in the | | | | PDT | | results section. | + +--------+ + + + | X-RAY PORTABLE CHEST | Urgent | 11/08/2008 | | Results for this | | 1 VIEW | | 4:08 PM | | procedure are in the | | | | PDT | | results section. | + +--------+ + + + | PRODUCT - RED CELLS | Routin | 11/08/2008 | | Results for this | | LEUKOREDUCED | e | 2:03 PM | | procedure are in the | | | | PDT | | results section. | + +--------+ + + + | PRODUCT - RED CELLS | Routin | 11/08/2008 | | Results for this | | LEUKOREDUCED | e | 2:03 PM | | procedure are in the | | | | PDT | | results section. | + +--------+ + + + | PRODUCT - RED CELLS | Routin | 11/08/2008 | | Results for this | | LEUKOREDUCED | e | 2:03 PM | | procedure are in the | | | | PDT | | results section. | + +--------+ + + + | PRODUCT - RED CELLS | Routin | 11/08/2008 | | Results for this | | LEUKOREDUCED | e | 2:03 PM | | procedure are in the | | | | PDT | | results section. | + +--------+ + + + | DIFFERENTIAL | Routin | 11/08/2008 | | Results for this | | | e | 3:40 AM | | procedure are in the | | | | PDT | | results section. | + +--------+ + + + | CBC, WITH | Routin | 11/08/2008 | | Results for this | | DIFFERENTIAL | e | 3:40 AM | | procedure are in the | | | | PDT | | results section. | + +--------+ + + + | BASIC METABOLIC SET | Routin | 11/08/2008 | | Results for this | | (NA, K, CL, TCO2, | e | 3:40 AM | | procedure are in the | | BUN, CR, GLU, CA) | | PDT | | results section. | + +--------+ + + + | COAGULOPATHY PANEL | Extrem | 11/08/2008 | | Results for this | | (INR,APTT,FIBRINOGEN | e | 3:40 AM | | procedure are in the | | ) | Emerge | PDT | | results section. | | | ncy | | | | + +--------+ + + + | PHOSPHORUS, PLASMA | Routin | 11/08/2008 | | Results for this | | | e | 3:40 AM | | procedure are in the | | | | PDT | | results section. | + +--------+ + + + | MAGNESIUM, PLASMA | Routin | 11/08/2008 | | Results for this | | | e | 3:40 AM | | procedure are in the | | | | PDT | | results section. | + +--------+ + + + | PRODUCT - RED CELLS | Routin | 11/08/2008 | | Results for this | | LEUKOREDUCED | e | 1:52 AM | | procedure are in the | | | | PDT | | results section. | + +--------+ + + + | PRODUCT - RED CELLS | Routin | 11/08/2008 | | Results for this | | LEUKOREDUCED | e | 1:52 AM | | procedure are in the | | | | PDT | | results section. | + +--------+ + + + | DIFFERENTIAL | Urgent | 11/08/2008 | | Results for this | | | | 12:48 AM | | procedure are in the | | | | PDT | | results section. | + +--------+ + + + | CBC, WITH | Urgent | 11/08/2008 | | Results for this | | DIFFERENTIAL | | 12:48 AM | | procedure are in the | | | | PDT | | results section. | + +--------+ + + + | SURGICAL PATHOLOGY | Routin | 11/08/2008 | | Results for this | | | e | | | procedure are in the | | | | | | results section. | + +--------+ + + + | PRODUCT - RED CELLS | Routin | 11/07/2008 | | Results for this | | LEUKOREDUCED | e | 11:14 PM | | procedure are in the | | | | PDT | | results section. | + +--------+ + + + | PRODUCT - RED CELLS | Routin | 11/07/2008 | | Results for this | | LEUKOREDUCED | e | 11:14 PM | | procedure are in the | | | | PDT | | results section. | + +--------+ + + + | QUENTIN LAB ARTER | Routin | 11/07/2008 | | Results for this | | DUPLEX UPPER | e | 8:21 PM | | procedure are in the | | EXTREMITY LT | | PDT | | results section. | + +--------+ + + + | PRODUCT - RED CELLS | Routin | 11/07/2008 | | Results for this | | LEUKOREDUCED | e | 7:46 PM | | procedure are in the | | | | PDT | | results section. | + +--------+ + + + | PRODUCT - RED CELLS | Routin | 11/07/2008 | | Results for this | | LEUKOREDUCED | e | 7:46 PM | | procedure are in the | | | | PDT | | results section. | + +--------+ + + + | TOTAL RESULTS | Routin | 11/07/2008 | | Results for this | | FOR,URINE | e | 6:30 PM | | procedure are in the | | | | PDT | | results section. | + +--------+ + + + | MICROALBUMIN/CREATIN | Routin | 11/07/2008 | | Results for this | | INE RATIO (RANDOM | e | 6:30 PM | | procedure are in the | | URINE) | | PDT | | results section. | + +--------+ + + + | CREATININE, URINE | Routin | 11/07/2008 | | Results for this | | | e | 6:30 PM | | procedure are in the | | | | PDT | | results section. | + +--------+ + + + | APTT (ACT. PART. | Routin | 11/07/2008 | | Results for this | | THROMBO TIME) | e | 6:29 PM | | procedure are in the | | | | PDT | | results section. | + +--------+ + + + | HEMATOCRIT | Urgent | 11/07/2008 | | Results for this | | | | 6:29 PM | | procedure are in the | | | | PDT | | results section. | + +--------+ + + + | PRODUCT - RED CELLS | Routin | 11/07/2008 | | Results for this | | LEUKOREDUCED | e | 2:49 PM | | procedure are in the | | | | PDT | | results section. | + +--------+ + + + | APTT (ACT. PART. | Routin | 11/07/2008 | | Results for this | | THROMBO TIME) | e | 2:00 PM | | procedure are in the | | | | PDT | | results section. | + +--------+ + + + | APTT (ACT. PART. | Routin | 11/07/2008 | | Results for this | | THROMBO TIME) | e | 1:00 PM | | procedure are in the | | | | PDT | | results section. | + +--------+ + + + | APTT (ACT. PART. | Routin | 11/07/2008 | | Results for this | | THROMBO TIME) | e | 12:01 PM | | procedure are in the | | | | PDT | | results section. | + +--------+ + + + | FELI CHUN/IWONA, | Routin | 11/07/2008 | | Results for this | | UNI | e | 10:37 AM | | procedure are in the | | | | PDT | | results section. | + +--------+ + + + | APTT (ACT. PART. | Routin | 11/07/2008 | | Results for this | | THROMBO TIME) | e | 8:31 AM | | procedure are in the | | | | PDT | | results section. | + +--------+ + + + | 12 LEAD ECG | Routin | 11/07/2008 | | Results for this | | | e | 7:00 AM | | procedure are in the | | | | PDT | | results section. | + +--------+ + + + | VASC LAB PORTABLE | Routin | 11/07/2008 | | Results for this | | VEIN MAPPING LOWER | e | 6:22 AM | | procedure are in the | | EXTREMITY BILATERAL | | PDT | | results section. | + +--------+ + + + | DIFFERENTIAL | Routin | 11/07/2008 | | Results for this | | | e | 6:06 AM | | procedure are in the | | | | PDT | | results section. | + +--------+ + + + | CBC, WITH | Routin | 11/07/2008 | | Results for this | | DIFFERENTIAL | e | 6:06 AM | | procedure are in the | | | | PDT | | results section. | + +--------+ + + + | BASIC METABOLIC SET | Routin | 11/07/2008 | | Results for this | | (NA, K, CL, TCO2, | e | 6:06 AM | | procedure are in the | | BUN, CR, GLU, CA) | | PDT | | results section. | + +--------+ + + + | CBC ONLY | Routin | 11/07/2008 | | Results for this | | | e | 6:06 AM | | procedure are in the | | | | PDT | | results section. | + +--------+ + + + | PHOSPHORUS, PLASMA | Routin | 11/07/2008 | | Results for this | | | e | 6:06 AM | | procedure are in the | | | | PDT | | results section. | + +--------+ + + + | MAGNESIUM, PLASMA | Routin | 11/07/2008 | | Results for this | | | e | 6:06 AM | | procedure are in the | | | | PDT | | results section. | + +--------+ + + + | RESP CARE THERAPY | Routin | 11/07/2008 | | Results for this | | | e | 5:27 AM | | procedure are in the | | | | PDT | | results section. | + +--------+ + + + | X-RAY PORTABLE | Urgent | 11/07/2008 | | Results for this | | FOREARM 2 VIEWS LEFT | | 2:58 AM | | procedure are in the | | | | PDT | | results section. | + +--------+ + + + | X-RAY HAND 2 VIEWS | Urgent | 11/07/2008 | | Results for this | | LEFT | | 2:58 AM | | procedure are in the | | | | PDT | | results section. | + +--------+ + + + | X-RAY ELBOW 2 VIEWS | Urgent | 11/07/2008 | | Results for this | | LEFT | | 2:58 AM | | procedure are in the | | | | PDT | | results section. | + +--------+ + + + | CONFIRMATORY ABO/RH | Routin | 11/07/2008 | | Results for this | | | e | 2:50 AM | | procedure are in the | | | | PDT | | results section. | + +--------+ + + + | URINE, MICROSCOPIC | Routin | 11/07/2008 | | Results for this | | EXAM | e | 12:01 AM | | procedure are in the | | | | PDT | | results section. | + +--------+ + + + | SURGICAL PATHOLOGY | Routin | 11/07/2008 | | Results for this | | | e | | | procedure are in the | | | | | | results section. | + +--------+ + + + | X-RAY CHEST 2 VIEW | Routin | 11/06/2008 | | Results for this | | | e | 10:31 PM | | procedure are in the | | | | PDT | | results section. | + +--------+ + + + | DIFFERENTIAL | Routin | 11/06/2008 | | Results for this | | | e | 9:58 PM | | procedure are in the | | | | PDT | | results section. | + +--------+ + + + | INR | Routin | 11/06/2008 | | Results for this | | | e | 9:58 PM | | procedure are in the | | | | PDT | | results section. | + +--------+ + + + | CBC, WITH | Routin | 11/06/2008 | | Results for this | | DIFFERENTIAL | e | 9:58 PM | | procedure are in the | | | | PDT | | results section. | + +--------+ + + + | COMPLETE METABOLIC | Routin | 11/06/2008 | | Results for this | | SET | e | 9:58 PM | | procedure are in the | | (NA,K,CL,CO2,BUN,CRE | | PDT | | results section. | | AT,GLUC,CA,AST,ALT,B | | | | | | SHERINE TOTAL,ALK | | | | | | PHOS,ALB,PROT TOTAL) | | | | | + +--------+ + + + | BASIC METABOLIC SET | Routin | 11/06/2008 | | Results for this | | (NA, K, CL, TCO2, | e | 9:58 PM | | procedure are in the | | BUN, CR, GLU, CA) | | PDT | | results section. | + +--------+ + + + | APTT (ACT. PART. | Routin | 11/06/2008 | | Results for this | | THROMBO TIME) | e | 9:58 PM | | procedure are in the | | | | PDT | | results section. | + +--------+ + + + | HEMOGLOBIN A1C, | Routin | 11/06/2008 | | Results for this | | BLOOD | e | 9:58 PM | | procedure are in the | | | | PDT | | results section. | + +--------+ + + + | PRODUCT - RED CELLS | Routin | 11/06/2008 | | Results for this | | LEUKOREDUCED | e | 9:15 PM | | procedure are in the | | | | PDT | | results section. | + +--------+ + + + | PRODUCT - RED CELLS | Routin | 11/06/2008 | | Results for this | | LEUKOREDUCED | e | 9:15 PM | | procedure are in the | | | | PDT | | results section. | + +--------+ + + + | TYPE AND SCREEN | Routin | 11/06/2008 | | Results for this | | | e | 8:22 PM | | procedure are in the | | | | PDT | | results section. | + +--------+ + + + | OPERATION RECORD | | 11/06/2008 | | Results for this | | | | 12:00 AM | | procedure are in the | | | | PDT | | results section. | + +--------+ + + + | SURGICAL PATHOLOGY | Routin | 11/06/2008 | | Results for this | | | e | | | procedure are in the | | | | | | results section. | + +--------+ + + + documented in this encounter Results PROCEDURE NOTE (04/05/2015 12:25 PM PST)PROCEDURE NOTE (04/05/2015 12:25 PM PST)PROCEDURE N OTE (04/05/2015 12:25 PM PST)PROCEDURE NOTE (04/05/2015 12:15 PM PST)WI MYOMECTOMY 1-4,W/TOT 250GMS/<,ABD APPRCH (04/05/2015 12:12 PM PST)ANESTHESIA/SEDATION (12/06/2008 10:10 AM PDT) + + + | Narrative | Performed At | + + + | A scan was | | | deleted from the Results section by P Interface [[id number]] on | | | 12/06/2008 at 10:10 AM (File: [id number]*[id number]) | | + + + PATHOLOGY (12/06/2008 10:10 AM PDT) + + + | Narrative | Performed At | + + + | A scan was | | | deleted from the Results section by Texere [[id number]] on | | | 12/06/2008 at 10:10 AM (File: [id number]*O*[id number]) | | + + + RADIOLOGY (12/06/2008 10:10 AM PDT) + + + | Narrative | Performed At | + + + | A scan was | | | deleted from the Results section by Se[employer] [[id number]] on | | | 12/06/2008 at 10:10 AM (File: [id number]*O*[id number]) | | + + + ANESTHESIA/SEDATION (12/06/2008 10:09 AM PDT) + + + | Narrative | Performed At | + + + | A scan was | | | deleted from the Results section by P Interface [[id number]] on | | | 12/06/2008 at 10:09 AM (File: [id number]*O*[id number]) | | + + + ANESTHESIA/SEDATION (12/06/2008 10:09 AM PDT) + + + | Narrative | Performed At | + + + | A scan was | | | deleted from the Results section by [employer] [[id number]] on | | | 12/06/2008 at 10:09 AM (File: [id number]*O*[id number]) | | + + + ANESTHESIA/SEDATION (12/06/2008 10:09 AM PDT) + + + | Narrative | Performed At | + + + | A scan was | | | deleted from the Results section by [employer] [[id number]] on | | | 12/06/2008 at 10:09 AM (File: [id number]*O*[id number]) | | + + + ANESTHESIA/SEDATION (12/06/2008 10:09 AM PDT) + + + | Narrative | Performed At | + + + | A scan was | | | deleted from the Results section by P Interface [[id number]] on | | | 12/06/2008 at 10:09 AM (File: [id number]*O*[id number]) | | + + + ANESTHESIA/SEDATION (12/06/2008 10:09 AM PDT) + + + | Narrative | Performed At | + + + | A scan was | | | deleted from the Results section by [employer] [[id number]] on | | | 12/06/2008 at 10:09 AM (File: [id number]*O*[id number]) | | + + + ANESTHESIA/SEDATION (12/06/2008 10:09 AM PDT) + + + | Narrative | Performed At | + + + | A scan was | | | deleted from the Results section by [employer] [[email or web address]] on | | | 12/06/2008 at 10:09 AM (File: [id number]*O*[id number]) | | + + + ANESTHESIA/SEDATION (12/06/2008 10:09 AM PDT) + + + | Narrative | Performed At | + + + | | | + + + ANESTHESIA/SEDATION (12/06/2008 10:09 AM PDT) + + + | Narrative | Performed At | + + + | A scan was | | | deleted from the Results section by [employer] [[id number]] on | | | 12/06/2008 at 10:09 AM (File: [id number]*O*[id number]) | | + + + ANESTHESIA/SEDATION (12/06/2008 10:09 AM PDT) + + + | Narrative | Performed At | + + + | A scan was | | | deleted from the Results section by [employer] [[id number]] on | | | 12/06/2008 at 10:09 AM (File: [id number]*O*[id number]) | | + + + ANESTHESIA/SEDATION (12/06/2008 10:09 AM PDT) + + + | Narrative | Performed At | + + + | A scan was | | | deleted from the Results section by P Interface [[email or web address]] on | | | 12/06/2008 at 10:09 AM (File: [id number]*O*[id number]) | | + + + ANESTHESIA/SEDATION (12/06/2008 10:09 AM PDT) + + + | Narrative | Performed At | + + + | A scan was | | | deleted from the Results section by [employer] [[id number]] on | | | 12/06/2008 at 10:09 AM (File: [id number]*O*[id number]) | | + + + ANESTHESIA/SEDATION (12/06/2008 10:09 AM PDT) + + + | Narrative | Performed At | + + + | A scan was | | | deleted from the Results section by [employer] [[id number]] on | | | 12/06/2008 at 10:09 AM (File: [id number]*O*[id number]) | | + + + TRANSTHORACIC ECHOCARDIOGRAM, ADULT (12/06/2008 10:08 AM PDT) + + + | Narrative | Performed At | + + + | A scan was | | | deleted from the Results section by P Interface [[email or web address]] on | | | 12/06/2008 at 10:08 AM (File: [id number]*O*[id number]) | | + + + INR (12/04/2008 9:42 AM PDT) + + + + + + | Component | Value | Ref Range | Performed | Pathologist | | | | | At | Signature | + + + + + + | INR | 2.03 (H)Comment: | 0.90 - 1.20 INR | [facility] | | | | INR | | DEPARTMENT | | | | Therapeutic ranges for | | OF | | | | full | | PATHOLOGY | | | | anticoagulation: | | | | | | INR for Venous | | | | | | Thromboembolism | | | | | | | | | | | | (2.0-3.0) | | | | | | INR INR for | | | | | | most patients with mech. | | | | | | | | | | | | valves (2.5-3.5) | | | | | | INR | | | | + + + + + + + + | Specimen | + + | Blood - Blood | + + + + + + + | Performing | Address | City/State/Zipcode | Phone Number | | Organization | | | | + + + + + | [facility] | [address] | [place] [address] | | | PATHOLOGY | [address] | | | + + + + + | [facility] | [address] | [place] [address] | | | PATHOLOGY | [address] | | | + + + + + CBC ONLY (12/04/2008 9:42 AM PDT) + + + + + + | Component | Value | Ref Range | Performed | Pathologist | | | | | At | Signature | + + + + + + | WHITE CELL | 14.9 (H) | 4.4 - 11.0 K/cu | [facility] | | | COUNT | | mm | DEPARTMENT | | | | | | OF | | | | | | PATHOLOGY | | + + + + + + | RED CELL | 3.05 (L) | 4.00 - 5.20 | [facility] | | | COUNT | | M/cu mm | DEPARTMENT | | | | | | OF | | | | | | PATHOLOGY | | + + + + + + | HEMOGLOBIN | 8.4 (L) | 12.0 - 16.0 | [facility] | | | | | g/dL | DEPARTMENT | | | | | | OF | | | | | | PATHOLOGY | | + + + + + + | HEMATOCRIT | 25.3 (L) | 36.0 - 46.0 % | [facility] | | | | | | DEPARTMENT | | | | | | OF | | | | | | PATHOLOGY | | + + + + + + | MCV | 83.0 | 80.0 - 96.0 fL | [facility] | | | | | | DEPARTMENT | | | | | | OF | | | | | | PATHOLOGY | | + + + + + + | MCHC | 33.1 (L) | 33.4 - 35.5 | [facility] | | | | | g/dL | DEPARTMENT | | | | | | OF | | | | | | PATHOLOGY | | + + + + + + | RDW | 18.5 (H) | 11.5 - 15.0 % | [facility] | | | | | | DEPARTMENT | | | | | | OF | | | | | | PATHOLOGY | | + + + + + + | PLATELET | 608 (H) | 150 - 400 K/cu | [facility] | | | COUNT | | mm | DEPARTMENT | | | | | | OF | | | | | | PATHOLOGY | | + + + + + + + + | Specimen | + + | Blood - Blood | + + + + + + + | Performing | Address | City/State/Zipcode | Phone Number | | Organization | | | | + + + + + | [facility] | [address] | [place] [address] | | | PATHOLOGY | [address] | | | + + + + + | [facility] | [address] | [place] [address] | | | PATHOLOGY | [address] | | | + + + + + MAGNESIUM, PLASMA (12/04/2008 9:42 AM PDT) + +-------+ + + + | Component | Value | Ref Range | Performed | Pathologist | | | | | At | Signature | + +-------+ + + + | MAGNESIUM,P | 2.2 | 1.8 - 2.5 mg/dL | [facility] | | | LASMA | | | DEPARTMENT | | | | | | OF | | | | | | PATHOLOGY | | + +-------+ + + + + + | Specimen | + + | Blood - Blood | + + + + + + + | Performing | Address | City/State/Zipcode | Phone Number | | Organization | | | | + + + + + | [facility] | [address] | [place] [address] | | | PATHOLOGY | [address] | | | + + + + + | [facility] | [address] | [place] [address] | | | PATHOLOGY | [address] | | | + + + + + BASIC METABOLIC SET (NA, K, CL, TCO2, BUN, CR, GLU, CA) (12/04/2008 9:42 AM PDT) + +---------+ + + + | Component | Value | Ref Range | Performed | Pathologist | | | | | At | Signature | + +---------+ + + + | GLUCOSE, | 110 (H) | 60 - 99 mg/dL | [facility] | | | PLASMA | | | DEPARTMENT | | | (LAB) | | | OF | | | | | | PATHOLOGY | | + +---------+ + + + | BUN, PLASMA | 8 | 6 - 20 mg/dL | [facility] | | | (LAB) | | | DEPARTMENT | | | | | | OF | | | | | | PATHOLOGY | | + +---------+ + + + | CREATININE | 0.62 | 0.60 - 1.10 | [facility] | | | PLASMA | | mg/dL | DEPARTMENT | | | (LAB) | | | OF | | | | | | PATHOLOGY | | + +---------+ + + + | SODIUM, | 139 | 134 - 143 | [facility] | | | PLASMA | | mmol/L | DEPARTMENT | | | (LAB) | | | OF | | | | | | PATHOLOGY | | + +---------+ + + + | POTASSIUM, | 3.8 | 3.4 - 5.0 | [facility] | | | PLASMA | | mmol/L | DEPARTMENT | | | (LAB) | | | OF | | | | | | PATHOLOGY | | + +---------+ + + + | CHLORIDE, | 108 | 97 - 108 mmol/L | [facility] | | | PLASMA | | | DEPARTMENT | | | (LAB) | | | OF | | | | | | PATHOLOGY | | + +---------+ + + + | CALCIUM, | 8.9 | 8.6 - 10.2 | [facility] | | | PLASMA | | mg/dL | DEPARTMENT | | | (LAB) | | | OF | | | | | | PATHOLOGY | | + +---------+ + + + | TOTAL CO2, | 24 | 23 - 31 mmol/L | [facility] | | | PLASMA | | | DEPARTMENT | | | (LAB) | | | OF | | | | | | PATHOLOGY | | + +---------+ + + + + + | Specimen | + + | Blood - Blood | + + + + + + + | Performing | Address | City/State/Zipcode | Phone Number | | Organization | | | | + + + + + | [facility] | [address] | [place] [address] | | | PATHOLOGY | [address] | | | + + + + + | [facility] | [address] | [place] [address] | | | PATHOLOGY | [address] | | | + + + + + PHOSPHORUS, PLASMA (12/04/2008 9:42 AM PDT) + +-------+ + + + | Component | Value | Ref Range | Performed | Pathologist | | | | | At | Signature | + +-------+ + + + | PHOSPHORUS, | 3.9 | 2.4 - 4.7 mg/dL | [facility] | | | PLASMA | | | DEPARTMENT | | | (LAB) | | | OF | | | | | | PATHOLOGY | | + +-------+ + + + + + | Specimen | + + | Blood - Blood | + + + + + + + | Performing | Address | City/State/Zipcode | Phone Number | | Organization | | | | + + + + + | [facility] | [facility] | [place] [address] | | | PATHOLOGY | [address] | | | + + + + + | [facility] | [address] | [place] [address] | | | PATHOLOGY | [address] | | | + + + + + INR (12/03/2008 7:17 AM PDT) + + + + + + | Component | Value | Ref Range | Performed | Pathologist | | | | | At | Signature | + + + + + + | INR | 1.84 (H)Comment: | 0.90 - 1.20 INR | [facility] | | | | INR | | DEPARTMENT | | | | Therapeutic ranges for | | OF | | | | full | | PATHOLOGY | | | | anticoagulation: | | | | | | INR for Venous | | | | | | Thromboembolism | | | | | | | | | | | | (2.0-3.0) | | | | | | INR INR for | | | | | | most patients with mech. | | | | | | | | | | | | valves (2.5-3.5) | | | | | | INR | | | | + + + + + + + + | Specimen | + + | Blood - Blood | + + + + + + + | Performing | Address | City/State/Zipcode | Phone Number | | Organization | | | | + + + + + | [facility] | [address] | [place] [address] | | | PATHOLOGY | [address] | | | + + + + + | [facility] | [address] | [place] [address] | | | PATHOLOGY | [address] | | | + + + + + CBC ONLY (12/03/2008 7:17 AM PDT) + + + + + + | Component | Value | Ref Range | Performed | Pathologist | | | | | At | Signature | + + + + + + | WHITE CELL | 15.1 (H) | 4.4 - 11.0 K/cu | [facility] | | | COUNT | | mm | DEPARTMENT | | | | | | OF | | | | | | PATHOLOGY | | + + + + + + | RED CELL | 3.09 (L) | 4.00 - 5.20 | [facility] | | | COUNT | | M/cu mm | DEPARTMENT | | | | | | OF | | | | | | PATHOLOGY | | + + + + + + | HEMOGLOBIN | 8.5 (L) | 12.0 - 16.0 | [facility] | | | | | g/dL | DEPARTMENT | | | | | | OF | | | | | | PATHOLOGY | | + + + + + + | HEMATOCRIT | 26.0 (L) | 36.0 - 46.0 % | [facility] | | | | | | DEPARTMENT | | | | | | OF | | | | | | PATHOLOGY | | + + + + + + | MCV | 84.3 | 80.0 - 96.0 fL | [facility] | | | | | | DEPARTMENT | | | | | | OF | | | | | | PATHOLOGY | | + + + + + + | MCHC | 32.6 (L) | 33.4 - 35.5 | [facility] | | | | | g/dL | DEPARTMENT | | | | | | OF | | | | | | PATHOLOGY | | + + + + + + | RDW | 18.6 (H) | 11.5 - 15.0 % | [facility] | | | | | | DEPARTMENT | | | | | | OF | | | | | | PATHOLOGY | | + + + + + + | PLATELET | 632 (H) | 150 - 400 K/cu | [facility] | | | COUNT | | mm | DEPARTMENT | | | | | | OF | | | | | | PATHOLOGY | | + + + + + + + + | Specimen | + + | Blood - Blood | + + + + + + + | Performing | Address | City/State/Zipcode | Phone Number | | Organization | | | | + + + + + | [facility] | [facility] [facility] | [place] [address] | | | PATHOLOGY | [address] | | | + + + + + | [facility] DE[facility]MENT | [address] [place] [address] | [place] [address] | | | PATHOLOGY | [address] | | | + + + + + MAGNESIUM, PLASMA (12/03/2008 7:17 AM PDT) + +-------+ + + + | Component | Value | Ref Range | Performed | Pathologist | | | | | At | Signature | + +-------+ + + + | MAGNESIUM,P | 2.3 | 1.8 - 2.5 mg/dL | [facility] | | | LASMA | | | DEPARTMENT | | | | | | OF | | | | | | PATHOLOGY | | + +-------+ + + + + + | Specimen | + + | Blood - Blood | + + + + + + + | Performing | Address | City/State/Zipcode | Phone Number | | Organization | | | | + + + + + | [facility] | [address] [facility] | [place] [address] | | | PATHOLOGY | [address] | | | + + + + + | [facility]MENT | [address] [facility] | [place] [address] | | | PATHOLOGY | [address] | | | + + + + + BASIC METABOLIC SET (NA, K, CL, TCO2, BUN, CR, GLU, CA) (12/03/2008 7:17 AM PDT) + +---------+ + + + | Component | Value | Ref Range | Performed | Pathologist | | | | | At | Signature | + +---------+ + + + | GLUCOSE, | 97 | 60 - 99 mg/dL | [facility] | | | PLASMA | | | DEPARTMENT | | | (LAB) | | | OF | | | | | | PATHOLOGY | | + +---------+ + + + | BUN, PLASMA | 10 | 6 - 20 mg/dL | [facility] | | | (LAB) | | | DEPARTMENT | | | | | | OF | | | | | | PATHOLOGY | | + +---------+ + + + | CREATININE | 0.70 | 0.60 - 1.10 | [facility] | | | PLASMA | | mg/dL | DEPARTMENT | | | (LAB) | | | OF | | | | | | PATHOLOGY | | + +---------+ + + + | SODIUM, | 143 | 134 - 143 | [facility] | | | PLASMA | | mmol/L | DEPARTMENT | | | (LAB) | | | OF | | | | | | PATHOLOGY | | + +---------+ + + + | POTASSIUM, | 4.2 | 3.4 - 5.0 | [facility] | | | PLASMA | | mmol/L | DEPARTMENT | | | (LAB) | | | OF | | | | | | PATHOLOGY | | + +---------+ + + + | CHLORIDE, | 111 (H) | 97 - 108 mmol/L | [facility] | | | PLASMA | | | DEPARTMENT | | | (LAB) | | | OF | | | | | | PATHOLOGY | | + +---------+ + + + | CALCIUM, | 9.1 | 8.6 - 10.2 | [facility] | | | PLASMA | | mg/dL | DEPARTMENT | | | (LAB) | | | OF | | | | | | PATHOLOGY | | + +---------+ + + + | TOTAL CO2, | 26 | 23 - 31 mmol/L | [facility] | | | PLASMA | | | DEPARTMENT | | | (LAB) | | | OF | | | | | | PATHOLOGY | | + +---------+ + + + + + | Specimen | + + | Blood - Blood | + + + + + + + | Performing | Address | City/State/Zipcode | Phone Number | | Organization | | | | + + + + + | [facility] | [address] | [place] [address] | | | PATHOLOGY | [address] | | | + + + + + | [facility] | [address] | [place] [address] | | | PATHOLOGY | [address] | | | + + + + + PHOSPHORUS, PLASMA (12/03/2008 7:17 AM PDT) + +-------+ + + + | Component | Value | Ref Range | Performed | Pathologist | | | | | At | Signature | + +-------+ + + + | PHOSPHORUS, | 4.0 | 2.4 - 4.7 mg/dL | [facility] | | | PLASMA | | | DEPARTMENT | | | (LAB) | | | OF | | | | | | PATHOLOGY | | + +-------+ + + + + + | Specimen | + + | Blood - Blood | + + + + + + + | Performing | Address | City/State/Zipcode | Phone Number | | Organization | | | | + + + + + | [facility]MENT [facility] | [address] | [place] [address] | | | PATHOLOGY | [address] | | | + + + + + | [facility] | [address] | [place] [address] | | | PATHOLOGY | [address] | | | + + + + + INR (12/02/2008 6:08 AM PDT) + + + + + + | Component | Value | Ref Range | Performed | Pathologist | | | | | At | Signature | + + + + + + | INR | 2.07 (H)Comment: | 0.90 - 1.20 INR | [facility] | | | | INR | | DEPARTMENT | | | | Therapeutic ranges for | | OF | | | | full | | PATHOLOGY | | | | anticoagulation: | | | | | | INR for Venous | | | | | | Thromboembolism | | | | | | | | | | | | (2.0-3.0) | | | | | | INR INR for | | | | | | most patients with mech. | | | | | | | | | | | | valves (2.5-3.5) | | | | | | INR | | | | + + + + + + + + | Specimen | + + | Blood - Blood | + + + + + + + | Performing | Address | City/State/Zipcode | Phone Number | | Organization | | | | + + + + + | [facility] | [address] [place] [address] | [place] [address] | | | PATHOLOGY | [address] | | | + + + + + | [facility] | [address] [place] [address] | [place] [address] | | | PATHOLOGY | [address] | | | + + + + + CBC ONLY (12/02/2008 6:08 AM PDT) + + + + + + | Component | Value | Ref Range | Performed | Pathologist | | | | | At | Signature | + + + + + + | WHITE CELL | 13.1 (H) | 4.4 - 11.0 K/cu | [facility] | | | COUNT | | mm | DEPARTMENT | | | | | | OF | | | | | | PATHOLOGY | | + + + + + + | RED CELL | 2.65 (L) | 4.00 - 5.20 | [facility] | | | COUNT | | M/cu mm | DEPARTMENT | | | | | | OF | | | | | | PATHOLOGY | | + + + + + + | HEMOGLOBIN | 7.3 (L) | 12.0 - 16.0 | [facility] | | | | | g/dL | DEPARTMENT | | | | | | OF | | | | | | PATHOLOGY | | + + + + + + | HEMATOCRIT | 22.2 (L) | 36.0 - 46.0 % | [facility] | | | | | | DEPARTMENT | | | | | | OF | | | | | | PATHOLOGY | | + + + + + + | MCV | 84.0 | 80.0 - 96.0 fL | [facility] | | | | | | DEPARTMENT | | | | | | OF | | | | | | PATHOLOGY | | + + + + + + | MCHC | 32.9 (L) | 33.4 - 35.5 | [facility] | | | | | g/dL | DEPARTMENT | | | | | | OF | | | | | | PATHOLOGY | | + + + + + + | RDW | 18.8 (H) | 11.5 - 15.0 % | [facility] | | | | | | DEPARTMENT | | | | | | OF | | | | | | PATHOLOGY | | + + + + + + | PLATELET | 572 (H) | 150 - 400 K/cu | [facility] | | | COUNT | | mm | DEPARTMENT | | | | | | OF | | | | | | PATHOLOGY | | + + + + + + + + | Specimen | + + | Blood - Blood | + + + + + + + | Performing | Address | City/State/Zipcode | Phone Number | | Organization | | | | + + + + + | [facility] DE[facility]MENT OF | [address] | [place] [address] | | | PATHOLOGY | [address] | | | + + + + + | [facility] DE[facility]MENT [facility] | [address] | [place] [address] | | | PATHOLOGY | [address] | | | + + + + + BASIC METABOLIC SET (NA, K, CL, TCO2, BUN, CR, GLU, CA) (12/02/2008 6:08 AM PDT) + +-------+ + + + | Component | Value | Ref Range | Performed | Pathologist | | | | | At | Signature | + +-------+ + + + | GLUCOSE, | 90 | 60 - 99 mg/dL | [facility] | | | PLASMA | | | DEPARTMENT | | | (LAB) | | | OF | | | | | | PATHOLOGY | | + +-------+ + + + | BUN, PLASMA | 11 | 6 - 20 mg/dL | [facility] | | | (LAB) | | | DEPARTMENT | | | | | | OF | | | | | | PATHOLOGY | | + +-------+ + + + | CREATININE | 0.64 | 0.60 - 1.10 | [facility] | | | PLASMA | | mg/dL | DEPARTMENT | | | (LAB) | | | OF | | | | | | PATHOLOGY | | + +-------+ + + + | SODIUM, | 140 | 134 - 143 | [facility] | | | PLASMA | | mmol/L | DEPARTMENT | | | (LAB) | | | OF | | | | | | PATHOLOGY | | + +-------+ + + + | POTASSIUM, | 3.6 | 3.4 - 5.0 | [facility] | | | PLASMA | | mmol/L | DEPARTMENT | | | (LAB) | | | OF | | | | | | PATHOLOGY | | + +-------+ + + + | CHLORIDE, | 108 | 97 - 108 mmol/L | [facility] | | | PLASMA | | | DEPARTMENT | | | (LAB) | | | OF | | | | | | PATHOLOGY | | + +-------+ + + + | CALCIUM, | 8.7 | 8.6 - 10.2 | [facility] | | | PLASMA | | mg/dL | DEPARTMENT | | | (LAB) | | | OF | | | | | | PATHOLOGY | | + +-------+ + + + | TOTAL CO2, | 25 | 23 - 31 mmol/L | [facility] | | | PLASMA | | | DEPARTMENT | | | (LAB) | | | OF | | | | | | PATHOLOGY | | + +-------+ + + + + + | Specimen | + + | Blood - Blood | + + + + + + + | Performing | Address | City/State/Zipcode | Phone Number | | Organization | | | | + + + + + | [facility] | [address] [facility] | [place] [address] | | | PATHOLOGY | [address] | | | + + + + + | [facility] | [address] [facility] | [place] [address] | | | PATHOLOGY | [address] | | | + + + + + MAGNESIUM, PLASMA (12/02/2008 6:08 AM PDT) + +-------+ + + + | Component | Value | Ref Range | Performed | Pathologist | | | | | At | Signature | + +-------+ + + + | MAGNESIUM,P | 2.1 | 1.8 - 2.5 mg/dL | [facility] | | | LASMA | | | DEPARTMENT | | | | | | OF | | | | | | PATHOLOGY | | + +-------+ + + + + + | Specimen | + + | Blood - Blood | + + + + + + + | Performing | Address | City/State/Zipcode | Phone Number | | Organization | | | | + + + + + | [facility] | [address] [place] [address] | [place] [address] | | | PATHOLOGY | [address] | | | + + + + + | [facility] | [address] [place] [address] | [place] [address] | | | PATHOLOGY | [address] | | | + + + + + PHOSPHORUS, PLASMA (12/02/2008 6:08 AM PDT) + +-------+ + + + | Component | Value | Ref Range | Performed | Pathologist | | | | | At | Signature | + +-------+ + + + | PHOSPHORUS, | 4.5 | 2.4 - 4.7 mg/dL | [facility] | | | PLASMA | | | DEPARTMENT | | | (LAB) | | | OF | | | | | | PATHOLOGY | | + +-------+ + + + + + | Specimen | + + | Blood - Blood | + + + + + + + | Performing | Address | City/State/Zipcode | Phone Number | | Organization | | | | + + + + + | [facility] | [address] [facility] | [place] [address] | | | PATHOLOGY | [address] | | | + + + + + | [facility]MENT | [address] [facility] | [place] [address] | | | PATHOLOGY | [address] | | | + + + + + INR (12/01/2008 7:08 AM PDT) + + + + + + | Component | Value | Ref Range | Performed | Pathologist | | | | | At | Signature | + + + + + + | INR | 1.71 (H)Comment: | 0.90 - 1.20 INR | [facility] | | | | INR | | DEPARTMENT | | | | Therapeutic ranges for | | OF | | | | full | | PATHOLOGY | | | | anticoagulation: | | | | | | INR for Venous | | | | | | Thromboembolism | | | | | | | | | | | | (2.0-3.0) | | | | | | INR INR for | | | | | | most patients with mech. | | | | | | | | | | | | valves (2.5-3.5) | | | | | | INR | | | | + + + + + + + + | Specimen | + + | Blood - Blood | + + + + + + + | Performing | Address | City/State/Zipcode | Phone Number | | Organization | | | | + + + + + | [facility] DEPARTMENT OF | [address] | [place] [address] | | | PATHOLOGY | [address] | | | + + + + + | [facility] DE[facility]MENT OF | [address] | [place] [address] | | | PATHOLOGY | [address] | | | + + + + + CBC ONLY (12/01/2008 7:08 AM PDT) + + + + + + | Component | Value | Ref Range | Performed | Pathologist | | | | | At | Signature | + + + + + + | WHITE CELL | 13.7 (H) | 4.4 - 11.0 K/cu | [facility] | | | COUNT | | mm | DEPARTMENT | | | | | | OF | | | | | | PATHOLOGY | | + + + + + + | RED CELL | 2.85 (L) | 4.00 - 5.20 | [facility] | | | COUNT | | M/cu mm | DEPARTMENT | | | | | | OF | | | | | | PATHOLOGY | | + + + + + + | HEMOGLOBIN | 8.0 (L) | 12.0 - 16.0 | [facility] | | | | | g/dL | DEPARTMENT | | | | | | OF | | | | | | PATHOLOGY | | + + + + + + | HEMATOCRIT | 23.8 (L) | 36.0 - 46.0 % | [facility] | | | | | | DEPARTMENT | | | | | | OF | | | | | | PATHOLOGY | | + + + + + + | MCV | 83.5 | 80.0 - 96.0 fL | [facility] | | | | | | DEPARTMENT | | | | | | OF | | | | | | PATHOLOGY | | + + + + + + | MCHC | 33.7 | 33.4 - 35.5 | [facility] | | | | | g/dL | DEPARTMENT | | | | | | OF | | | | | | PATHOLOGY | | + + + + + + | RDW | 18.3 (H) | 11.5 - 15.0 % | [facility] | | | | | | DEPARTMENT | | | | | | OF | | | | | | PATHOLOGY | | + + + + + + | PLATELET | 675 (H) | 150 - 400 K/cu | [facility] | | | COUNT | | mm | DEPARTMENT | | | | | | OF | | | | | | PATHOLOGY | | + + + + + + + + | Specimen | + + | Blood - Blood | + + + + + + + | Performing | Address | City/State/Zipcode | Phone Number | | Organization | | | | + + + + + | [facility] | [address] [facility] | [place] [address] | | | PATHOLOGY | [address] | | | + + + + + | [facility] | [address] [facility] | [place] [address] | | | PATHOLOGY | [address] | | | + + + + + BASIC METABOLIC SET (NA, K, CL, TCO2, BUN, CR, GLU, CA) (12/01/2008 7:08 AM PDT) + + + + + + | Component | Value | Ref Range | Performed | Pathologist | | | | | At | Signature | + + + + + + | GLUCOSE, | 128 (H) | 60 - 99 mg/dL | [facility] | | | PLASMA | | | DEPARTMENT | | | (LAB) | | | OF | | | | | | PATHOLOGY | | + + + + + + | BUN, PLASMA | 7 | 6 - 20 mg/dL | [facility] | | | (LAB) | | | DEPARTMENT | | | | | | OF | | | | | | PATHOLOGY | | + + + + + + | CREATININE | 0.57 (L) | 0.60 - 1.10 | [facility] | | | PLASMA | | mg/dL | DEPARTMENT | | | (LAB) | | | OF | | | | | | PATHOLOGY | | + + + + + + | SODIUM, | 142 | 134 - 143 | [facility] | | | PLASMA | | mmol/L | DEPARTMENT | | | (LAB) | | | OF | | | | | | PATHOLOGY | | + + + + + + | POTASSIUM, | 4.0 | 3.4 - 5.0 | [facility] | | | PLASMA | | mmol/L | DEPARTMENT | | | (LAB) | | | OF | | | | | | PATHOLOGY | | + + + + + + | CHLORIDE, | 111 (H) | 97 - 108 mmol/L | [facility] | | | PLASMA | | | DEPARTMENT | | | (LAB) | | | OF | | | | | | PATHOLOGY | | + + + + + + | CALCIUM, | 8.9 | 8.6 - 10.2 | [facility] | | | PLASMA | | mg/dL | DEPARTMENT | | | (LAB) | | | OF | | | | | | PATHOLOGY | | + + + + + + | TOTAL CO2, | 25 | 23 - 31 mmol/L | [facility] | | | PLASMA | | | DEPARTMENT | | | (LAB) | | | OF | | | | | | PATHOLOGY | | + + + + + + + + | Specimen | + + | Blood - Blood | + + + + + + + | Performing | Address | City/State/Zipcode | Phone Number | | Organization | | | | + + + + + | [facility] | [address] [place] [address] | [place] [address] | | | PATHOLOGY | [address] | | | + + + + + | [facility] | [address] [place] [address] | [place] [address] | | | PATHOLOGY | [address] | | | + + + + + MAGNESIUM, PLASMA (12/01/2008 7:08 AM PDT) + +-------+ + + + | Component | Value | Ref Range | Performed | Pathologist | | | | | At | Signature | + +-------+ + + + | MAGNESIUM,P | 2.2 | 1.8 - 2.5 mg/dL | [facility] | | | LASMA | | | DEPARTMENT | | | | | | OF | | | | | | PATHOLOGY | | + +-------+ + + + + + | Specimen | + + | Blood - Blood | + + + + + + + | Performing | Address | City/State/Zipcode | Phone Number | | Organization | | | | + + + + + | [facility]MENT [facility] | [address] | [place] [address] | | | PATHOLOGY | [address] | | | + + + + + | [facility] DE[facility]MENT OF | [address] | [place] [address] | | | PATHOLOGY | [address] | | | + + + + + PHOSPHORUS, PLASMA (12/01/2008 7:08 AM PDT) + +-------+ + + + | Component | Value | Ref Range | Performed | Pathologist | | | | | At | Signature | + +-------+ + + + | PHOSPHORUS, | 4.4 | 2.4 - 4.7 mg/dL | [facility] | | | PLASMA | | | DEPARTMENT | | | (LAB) | | | OF | | | | | | PATHOLOGY | | + +-------+ + + + + + | Specimen | + + | Blood - Blood | + + + + + + + | Performing | Address | City/State/Zipcode | Phone Number | | Organization | | | | + + + + + | [facility] DEPARTMENT [facility] | [facility] | [place] [address] | | | PATHOLOGY | [address] | | | + + + + + | [facility] DEPARTMENT OF | [address] | [place] [address] | | | PATHOLOGY | [address] | | | + + + + + INR (11/30/2008 5:36 AM PDT) + + + + + + | Component | Value | Ref Range | Performed | Pathologist | | | | | At | Signature | + + + + + + | INR | 1.16Comment: | 0.90 - 1.20 INR | [facility] | | | | INR | | DEPARTMENT | | | | Therapeutic ranges for | | OF | | | | full | | PATHOLOGY | | | | anticoagulation: | | | | | | INR for Venous | | | | | | Thromboembolism | | | | | | | | | | | | (2.0-3.0) | | | | | | INR INR for | | | | | | most patients with mech. | | | | | | | | | | | | valves (2.5-3.5) | | | | | | INR | | | | + + + + + + + + | Specimen | + + | Blood - Blood | + + + + + + + | Performing | Address | City/State/Zipcode | Phone Number | | Organization | | | | + + + + + | [facility] | [address] | [place] [address] | | | PATHOLOGY | [address] | | | + + + + + | [facility] | [address] | [place] [address] | | | PATHOLOGY | [address] | | | + + + + + CBC ONLY (11/30/2008 5:36 AM PDT) + + + + + + | Component | Value | Ref Range | Performed | Pathologist | | | | | At | Signature | + + + + + + | WHITE CELL | 13.8 (H) | 4.4 - 11.0 K/cu | [facility] | | | COUNT | | mm | DEPARTMENT | | | | | | OF | | | | | | PATHOLOGY | | + + + + + + | RED CELL | 2.78 (L) | 4.00 - 5.20 | [facility] | | | COUNT | | M/cu mm | DEPARTMENT | | | | | | OF | | | | | | PATHOLOGY | | + + + + + + | HEMOGLOBIN | 7.8 (L) | 12.0 - 16.0 | [facility] | | | | | g/dL | DEPARTMENT | | | | | | OF | | | | | | PATHOLOGY | | + + + + + + | HEMATOCRIT | 23.5 (L) | 36.0 - 46.0 % | [facility] | | | | | | DEPARTMENT | | | | | | OF | | | | | | PATHOLOGY | | + + + + + + | MCV | 84.7 | 80.0 - 96.0 fL | [facility] | | | | | | DEPARTMENT | | | | | | OF | | | | | | PATHOLOGY | | + + + + + + | MCHC | 32.9 (L) | 33.4 - 35.5 | [facility] | | | | | g/dL | DEPARTMENT | | | | | | OF | | | | | | PATHOLOGY | | + + + + + + | RDW | 17.6 (H) | 11.5 - 15.0 % | [facility] | | | | | | DEPARTMENT | | | | | | OF | | | | | | PATHOLOGY | | + + + + + + | PLATELET | 689 (H) | 150 - 400 K/cu | [facility] | | | COUNT | | mm | DEPARTMENT | | | | | | OF | | | | | | PATHOLOGY | | + + + + + + + + | Specimen | + + | Blood - Blood | + + + + + + + | Performing | Address | City/State/Zipcode | Phone Number | | Organization | | | | + + + + + | [facility] | [facility] | [place] [address] | | | PATHOLOGY | [address] | | | + + + + + | [facility] DE[facility]MENT [facility] | [facility] | [place] [address] | | | PATHOLOGY | [address] | | | + + + + + BASIC METABOLIC SET (NA, K, CL, TCO2, BUN, CR, GLU, CA) (11/30/2008 5:36 AM PDT) + +---------+ + + + | Component | Value | Ref Range | Performed | Pathologist | | | | | At | Signature | + +---------+ + + + | GLUCOSE, | 140 (H) | 60 - 99 mg/dL | [facility] | | | PLASMA | | | DEPARTMENT | | | (LAB) | | | OF | | | | | | PATHOLOGY | | + +---------+ + + + | BUN, PLASMA | 13 | 6 - 20 mg/dL | [facility] | | | (LAB) | | | DEPARTMENT | | | | | | OF | | | | | | PATHOLOGY | | + +---------+ + + + | CREATININE | 0.62 | 0.60 - 1.10 | [facility] | | | PLASMA | | mg/dL | DEPARTMENT | | | (LAB) | | | OF | | | | | | PATHOLOGY | | + +---------+ + + + | SODIUM, | 138 | 134 - 143 | [facility] | | | PLASMA | | mmol/L | DEPARTMENT | | | (LAB) | | | OF | | | | | | PATHOLOGY | | + +---------+ + + + | POTASSIUM, | 3.9 | 3.4 - 5.0 | [facility] | | | PLASMA | | mmol/L | DEPARTMENT | | | (LAB) | | | OF | | | | | | PATHOLOGY | | + +---------+ + + + | CHLORIDE, | 109 (H) | 97 - 108 mmol/L | [facility] | | | PLASMA | | | DEPARTMENT | | | (LAB) | | | OF | | | | | | PATHOLOGY | | + +---------+ + + + | CALCIUM, | 8.6 | 8.6 - 10.2 | [facility] | | | PLASMA | | mg/dL | DEPARTMENT | | | (LAB) | | | OF | | | | | | PATHOLOGY | | + +---------+ + + + | TOTAL CO2, | 23 | 23 - 31 mmol/L | [facility] | | | PLASMA | | | DEPARTMENT | | | (LAB) | | | OF | | | | | | PATHOLOGY | | + +---------+ + + + + + | Specimen | + + | Blood - Blood | + + + + + + + | Performing | Address | City/State/Zipcode | Phone Number | | Organization | | | | + + + + + | [facility] DE[facility]MENT [facility] | [address] | [place] [address] | | | PATHOLOGY | [address] | | | + + + + + | [facility] DE[facility]MENT [facility] | [address] | [place] [address] | | | PATHOLOGY | [address] | | | + + + + + MAGNESIUM, PLASMA (11/30/2008 5:36 AM PDT) + +-------+ + + + | Component | Value | Ref Range | Performed | Pathologist | | | | | At | Signature | + +-------+ + + + | MAGNESIUM,P | 2.1 | 1.8 - 2.5 mg/dL | [facility] | | | LASMA | | | DEPARTMENT | | | | | | OF | | | | | | PATHOLOGY | | + +-------+ + + + + + | Specimen | + + | Blood - Blood | + + + + + + + | Performing | Address | City/State/Zipcode | Phone Number | | Organization | | | | + + + + + | [facility] | [address] | [place] [address] | | | PATHOLOGY | [address] | | | + + + + + | [facility] | [facility] [address] | [place] [address] | | | PATHOLOGY | [address] | | | + + + + + PHOSPHORUS, PLASMA (11/30/2008 5:36 AM PDT) + +-------+ + + + | Component | Value | Ref Range | Performed | Pathologist | | | | | At | Signature | + +-------+ + + + | PHOSPHORUS, | 4.0 | 2.4 - 4.7 mg/dL | [facility] | | | PLASMA | | | DEPARTMENT | | | (LAB) | | | OF | | | | | | PATHOLOGY | | + +-------+ + + + + + | Specimen | + + | Blood - Blood | + + + + + + + | Performing | Address | City/State/Zipcode | Phone Number | | Organization | | | | + + + + + | [facility] DEPARTMENT OF | [id number] | [place] [address] | | | PATHOLOGY | [address] | | | + + + + + | [facility] DEPARTMENT OF | [address] | [place] [address] | | | PATHOLOGY | [address] | | | + + + + + LAB OTHER (11/29/2008 12:26 PM PDT) + + + + + + | Component | Value | Ref Range | Performed | Pathologist | | | | | At | Signature | + + + + + + | MISC REF | lupus anticoag panel, | | [facility] | | | TEST NAME | plasma | | DEPARTMENT | | | | | | OF | | | | | | PATHOLOGY | | + + + + + + | MISC REF | Report to be scanned | | [facility] | | | TEST RESULT | into [facility]. | | DEPARTMENT | | | | | | OF | | | | | | PATHOLOGY | | + + + + + + | REFERRAL | Test performed by [facility] | | [facility] | | | LAB NAME | [id number] [facility] | | DEPARTMENT | | | | [place] [address] | | OF | | | | [phone][email or web address]. | | PATHOLOGY | | | | com | | | | + + + + + + + + | Specimen | + + | | + + + + + + + | Performing | Address | City/State/Zipcode | Phone Number | | Organization | | | | + + + + + | [facility] DEPARTMENT OF | [address] | [place] [address] | | | PATHOLOGY | [address] | | | + + + + + | [facility] | [address] | [place] [address] | | | PATHOLOGY | [address] | | | + + + + + RHEUMATOID FACTOR, SERUM (11/29/2008 12:25 PM PDT) + +-------+ + + + | Component | Value | Ref Range | Performed | Pathologist | | | | | At | Signature | + +-------+ + + + | RHEUMATOID | < 10 | <15 IU/mL | | | | FACTOR | | | | | + +-------+ + + + + + | Specimen | + + | Blood - Blood | + + + + + | Narrative | Performed At | + + + | Reference Range Change effective 03/27/08 | [facility] | | [facility]) | DEPARTMENT OF | | [facility] [address] | PATHOLOGY | | [place] [address] | | + + + + + + + + | Performing | Address | City/State/Zipcode | Phone Number | | Organization | | | | + + + + + | [facility]MENT [facility] | [address] [facility] | [place] [address] | | | PATHOLOGY | [address] | | | + + + + + | [facility] DE[facility]MENT [facility] | [address] [facility] | [place] [address] | | | PATHOLOGY | [address] | | | + + + + + SEDIMENTATION RATE (11/29/2008 12:25 PM PDT) + +--------+ + + + | Component | Value | Ref Range | Performed | Pathologist | | | | | At | Signature | + +--------+ + + + | SEDIMENTATI | 74 (H) | <31 mm/hr | [facility] | | | ON RATE | | | DEPARTMENT | | | | | | OF | | | | | | PATHOLOGY | | + +--------+ + + + + + | Specimen | + + | Blood - Blood | + + + + + + + | Performing | Address | City/State/Zipcode | Phone Number | | Organization | | | | + + + + + | [facility] | [address] [place] [address] | [place] [address] | | | PATHOLOGY | [address] | | | + + + + + | [facility] DEPARTMENT | [address] [place] [address] | [place] [address] | | | PATHOLOGY | [address] | | | + + + + + PROTEIN C ACTIVITY, PLASMA (11/29/2008 12:25 PM PDT) + + + + + + | Component | Value | Ref Range | Performed | Pathologist | | | | | At | Signature | + + + + + + | PROTEIN C | 0.96Comment: Published | 0.82 - 1.54 | [facility] | | | ACTIVITY | reference ranges for | U/mL | DEPARTMENT | | | | children less than 6 mos | | OF | | | | can befound in the | | PATHOLOGY | | | | Hemostasis Section | | | | | | general instructions of | | | | | | the [facility] LabManual: | | | | | | [email or web address] | | | | | [email or web address] | | | | + + + + + + + + | Specimen | + + | Blood - Blood | + + + + + + + | Performing | Address | City/State/Zipcode | Phone Number | | Organization | | | | + + + + + | [facility] DEPARTMENT OF | [address] [facility] | [place] [address] | | | PATHOLOGY | [address] | | | + + + + + | [facility] | [address] [facility] | [place] [address] | | | PATHOLOGY | [address] | | | + + + + + PROTEIN S ANTIGEN , FREE PLASMA (11/29/2008 12:25 PM PDT) + + + + + + | Component | Value | Ref Range | Performed | Pathologist | | | | | At | Signature | + + + + + + | PROTEIN S | 113Comment: TEST | 55 - 123 % | | | | ANTIGEN,BEBE | INFORMATION: Protein | | | | | E | S Ag, FREEPatients on | | | | | | oral anticoagulants may | | | | | | have decreasedfree | | | | | | protein S | | | | | | values. Patients | | | | | | should be off | | | | | | oralanticoagulant | | | | | | therapy for two weeks | | | | | | for accuratemeasurement | | | | | | of free protein S | | | | | | levels. Decreased | | | | | | levelsof free protein S | | | | | | are also associated with | | | | | | DIC, liverdisease, | | | | | | , and | | | | | | inflammatory | | | | | | syndromes.Performed by | | | | | | [email or web address] | | | | | | Zia Pearson, [facility],[place] | | | | | | [id number] | | | | | | [phone].[employer]. | | | | | | Lizbet silverio, | | | | | | , Lab. Director | | | | + + + + + + + + | Specimen | + + | Blood - Blood | + + + + + + + | Performing | Address | City/State/Zipcode | Phone Number | | Organization | | | | + + + + + | [facility] | [address] | [place] [address] | | | PATHOLOGY | [address] | | | + + + + + C-REACT PRTN (FOR INFLAMMATION) (11/29/2008 12:25 PM PDT) + +-------+ + + + | Component | Value | Ref Range | Performed | Pathologist | | | | | At | Signature | + +-------+ + + + | C-REACTIVE | < 0.5 | <0.6 mg/dl | | | | PROTEIN | | | | | + +-------+ + + + + + | Specimen | + + | Blood - Blood | + + + + + | Narrative | Performed At | + + + | Reference Range Change effective 03/27/08 | MELANIE | | [facility]) | DEPARTMENT OF | | [facility] | PATHOLOGY | | [address] | | | [place] [address] | | + + + + + + + + | Performing | Address | City/State/Zipcode | Phone Number | | Organization | | | | + + + + + | [facility] | [address] [facility] | [place] [address] | | | PATHOLOGY | [address] | | | + + + + + | [facility] | [address] [place] [address] | [place] [address] | | | PATHOLOGY | [address] | | | + + + + + ANTI NUCLEAR AB SCREEN, SERUM (11/29/2008 12:25 PM PDT) + + + + + + | Component | Value | Ref Range | Performed | Pathologist | | | | | At | Signature | + + + + + + | BOB SCREEN | Negative | Negative | | | | ON HEP | | | | | | 2,SERUM | | | | | + + + + + + + + | Specimen | + + | Blood - Blood | + + + + + | Narrative | Performed At | + + + | New performing lab for Anti DNA Antibody and Anti | [facility] | | NDNA Ab Titer effective 05/08/08. [facility] | DEPARTMENT OF | | [facility]) [facility] | PATHOLOGY | | [address] | | | [place] [address] | | + + + + + + + + | Performing | Address | City/State/Zipcode | Phone Number | | Organization | | | | + + + + + | [facility] DEPARTMENT [facility] | [facility] | [place] [address] | | | PATHOLOGY | [address] | | | + + + + + | [facility] DEPARTMENT OF | [facility] | [place] [address] | | | PATHOLOGY | [address] | | | + + + + + PROTHROMBIN GENE MUTATION, BLOOD (11/29/2008 12:25 PM PDT) + + + + + + | Component | Value | Ref Range | Performed | Pathologist | | | | | At | Signature | + + + + + + | PROTHROMBIN | NO | No Units | | | | GENE | MUTATIONINTERPRETATION: | | | | | MUTATION | Prothrombin mutation | | | | | | analysis shows that | | | | | | there is no mutation in | | | | | | eithercopy of the | | | | | | prothrombin gene at | | | | | | nucleotide | | | | | | [address]. Please note | | | | | | that thisassay only | | | | | | detects the [id number] | | | | | | point mutation, and | | | | | | therefore a normalresult | | | | | | (in one or both | | | | | | alleles) does not rule | | | | | | out an abnormal | | | | | | phenotype. Other | | | | | | mutations responsible | | | | | | for a hypercoagulable | | | | | | state cannot be | | | | | | ruledout. Thank you very | | | | | | much for your | | | | | | referral. Please do | | | | | | not hesitate to | | | | | | contactus for additional | | | | | | information as to the | | | | | | ramification of this | | | | | | test result. We look | | | | | | forward to assisting you | | | | | | again in the future. | | | | + + + + + + | DNA INTRO | As per your request, DNA | | | | | | has been analyzed for | | | | | | the presence of | | | | | | [id number] mutation in | | | | | | the prothrombin gene | | | | | | that has been associated | | | | | | withelevated | | | | | | prothrombin levels and | | | | | | an increased risk of | | | | | | venous | | | | | | thrombosis(1,2). For | | | | | | this assay, a specific | | | | | | region of the | | | | | | prothrombin gene has | | | | | | beenamplified by PCR and | | | | | | analyzed using a | | | | | | fluorescently | | | | | | labeledsequence-specific | | | | | | probe. A fluorescent | | | | | | melting curve of | | | | | | thehybridization | | | | | | kinetics of the sample | | | | | | and necessary controls | | | | | | has beenexamined; the | | | | | | clinical interpretation | | | | | | is detailed above. | | | | | | Heterozygotesfor the | | | | | | common prothrombin | | | | | | [id number] mutation | | | | | | constitute approximately | | | | | | 2%of the normal white | | | | | | population(1,2). | | | | + + + + + + | DNA FOOTER | References: 1.) Addis et | | | | | | al. Blood 88, | | | | | | [phone] (1995). 2.) | | | | | | Ridker et al. | | | | | | Circulation 99, | | | | | | [phone](1998). 3.) | | | | | | Portillo, Chemo, and | | | | | | Press. Amer J Clin Path | | | | | | 115, 439-47(2000)This | | | | | | test was developed and | | | | | | its performance | | | | | | characteristics | | | | | | determined bythe [facility] | | | | | | [facility] | | | | | | Laboratory. It has | | | | | | not been cleared or | | | | | | approvedby the U.S. Food | | | | | | and Drug | | | | | | Administration. FDA | | | | | | approval is not | | | | | | requiredfor clinical use | | | | | | of this test, and | | | | | | therefore validation was | | | | | | done asrequired under | | | | | | the requirements of the | | | | | | Clinical Laboratory | | | | | | ImprovementAct of | | | | | | 1987. The [facility] | | | | | | Diagnostic Laboratory is | | | | | | a fully licensedand/or | | | | | | accredited clinical | | | | | | laboratory under CLIA, | | | | | | [place], and the State | | | | | | of[place].Please note | | | | | | that our lab also offers | | | | | | a clinical diagnostic | | | | | | test todirectly detect | | | | | | the most common cause of | | | | | | hereditary | | | | | | thromboticpredisposition | | | | | | , the R506Q Factor V | | | | | | Leiden | | | | | | mutation. Should this | | | | | | patientbe undergoing a | | | | | | hypercoagulable | | | | | | evaluation, a Factor V | | | | | | mutation analysismay | | | | | | also be clinically | | | | | | indicated. | | | | + + + + + + | DNA | Reviewed and | | | | | SIGNATURE | electronically signed by | | | | | | Myron Rothman MD, | | | | | | PhD. | | | | + + + + + + | SPECIMEN | Whole Blood | | | | | TYPE | | | | | | SUBMITTED | | | | | + + + + + + | REASON FOR | 903.3 | | | | | REFERRAL | | | | | + + + + + + + + | Specimen | + + | Blood | + + + + + + + | Performing | Address | City/State/Zipcode | Phone Number | | Organization | | | | + + + + + | [facility] | [address] | [place] [address] | | | PATHOLOGY | [address] | | | + + + + + FACTOR V GAGAN, BLOOD (11/29/2008 12:25 PM PDT) + + + + + + | Component | Value | Ref Range | Performed | Pathologist | | | | | At | Signature | + + + + + + | FACTOR V | NO | | | | | (5) LEITYREE | MUTATIONINTERPRETATION: | | | | | | The Factor V Leiden | | | | | | mutation analysis shows | | | | | | that there is no | | | | | | mutation ineither copy | | | | | | of the Factor V gene at | | | | | | codon 506. Please note | | | | | | that thisassay only | | | | | | detects the Factor V | | | | | | R506Q point mutation | | | | | | (Factor V Leiden),and | | | | | | therefore a normal | | | | | | result (in one or both | | | | | | alleles) does not | | | | | | rule-outan abnormal | | | | | | Factor V | | | | | | phenotype. These | | | | | | results suggest that | | | | | | this patientdoes not | | | | | | have "Resistance to | | | | | | Activated Protein C." | | | | | | Other | | | | | | mutationsresponsible for | | | | | | a hypercoagulable state | | | | | | cannot be ruled out. | | | | | | Thank you very much for | | | | | | your referral. Please | | | | | | do not hesitate to | | | | | | contactus for additional | | | | | | information as to the | | | | | | ramifications of this | | | | | | testresult. We look | | | | | | forward to assisting you | | | | | | again in the future. | | | | + + + + + + | DNA INTRO | As per your request, | | | | | | Factor V Leiden(R506Q) | | | | | | mutation analysis has | | | | | | beencompleted. For | | | | | | this assay, a specific | | | | | | region of the Factor V | | | | | | gene hasbeen amplified | | | | | | by PCR and analyzed | | | | | | using a fluorescently | | | | | | labeledsequence-specific | | | | | | probe. A fluorescent | | | | | | melting curve of | | | | | | thehybridization | | | | | | kinetics of the sample | | | | | | and necessary controls | | | | | | has beenexamined; the | | | | | | clinical interpretation | | | | | | is detailed above. In | | | | | | populationscreening | | | | | | studies, approximately | | | | | | 3% of the [place] population | | | | | | can be shown dakota Factor | | | | | | V Gagan heterozygotes. | | | | + + + + + + | DNA FOOTER | References: 1.) Samara | | | | | | et al. N. Engl. J. | | | | | | Med(1994) 332:912-7. 2.) | | | | | | Lauren et ariel. N. | | | | | | Engl. J. Med(1993) | | | | | | 330:[phone]. 3.) Keily et | | | | | | al. Genetics in | | | | | | Medicine(2000)3:139-147. | | | | | | 4.) Chemo Portillo, & | | | | | | Press. Am J. Clin | | | | | | Path(2000) | | | | | | 115:439-47.This test was | | | | | | developed and its | | | | | | performance | | | | | | characteristics | | | | | | determined bythe [facility] | | | | | | [facility] | | | | | | Laboratory. It has | | | | | | not been cleared or | | | | | | approvedby the U.S. Food | | | | | | and Drug | | | | | | Administration. FDA | | | | | | approval is not | | | | | | requiredfor clinical use | | | | | | of this test, and | | | | | | therefore validation was | | | | | | done asrequired under | | | | | | the requirements of the | | | | | | Clinical Laboratory | | | | | | ImprovementAct of | | | | | | 1987. The [facility] | | | | | | Diagnostic Laboratory is | | | | | | a fully licensedand/or | | | | | | accredited clinical | | | | | | laboratory under CLIA, | | | | | | [place] and the State | | | | | | of[place].Please note | | | | | | that our lab now also | | | | | | offers a clinical | | | | | | diagnostic test | | | | | | todirectly detect a | | | | | | common mutation in the | | | | | | prothrombin gene that | | | | | | has beenshown to | | | | | | predispose to both | | | | | | elevated prothrombin | | | | | | levels and an | | | | | | increasedrisk of venous | | | | | | thrombosis (Poort et al. | | | | | | Blood(1996) 88: | | | | | | 2683-7825). Should this | | | | | | patient be undergoing a | | | | | | hypercoagulable | | | | | | evaluation, aprothrombin | | | | | | gene mutation analysis | | | | | | may be clinically | | | | | | indicated. | | | | + + + + + + | DNA | Reviewed and | | | | | SIGNATURE | electronically signed by | | | | | | Myron Rothman MD, | | | | | | PhD. | | | | + + + + + + | SPECIMEN | Whole Blood | | | | | TYPE | | | | | | SUBMITTED | | | | | + + + + + + | REASON FOR | 903.3 | | | | | REFERRAL | | | | | + + + + + + + + | Specimen | + + | Blood - Blood | + + + + + + + | Performing | Address | City/State/Zipcode | Phone Number | | Organization | | | | + + + + + | [facility] DEPARTMENT | [address] | [place] [address] | | | PATHOLOGY | [address] | | | + + + + + ANTICARDIOLIPIN GMA, SERUM (11/29/2008 12:25 PM PDT) + +-------+ + + + | Component | Value | Ref Range | Performed | Pathologist | | | | | At | Signature | + +-------+ + + + | ANTICARDIOL | < 9 | <20 PL Units | [facility] | | | IPIN IGG | | | DEPARTMENT | | | | | | OF | | | | | | PATHOLOGY | | + +-------+ + + + | ANTICARDIOL | < 9 | <20 PL Units | [facility] | | | IPIN IGM | | | DEPARTMENT | | | | | | OF | | | | | | PATHOLOGY | | + +-------+ + + + | ANTICARDIOL | < 9 | <15 PL Units | [facility] | | | IPIN IGA | | | DEPARTMENT | | | | | | OF | | | | | | PATHOLOGY | | + +-------+ + + + + + | Specimen | + + | Blood - Blood | + + + + + | Narrative | Performed At | + + + | Anticardiolipin GMA Interpretive Data for | [facility] | | Anticardiolipin Antibodies IgG, IgM | DEPARTMENT OF | | Negative: | PATHOLOGY | | (<9-19) PL Units | | | Low | | | Positive: (20-30) | | | PL Units Moderate | | | Positive: (31-80) PL Units | | | High | | | Positive: ( > | | | 80) PL Units Interpretive Data for | | | Anticardiolipin Antibody IgA | | | Negative: | | | (<9-14) PL Units | | | Low | | | Positive: (15-25) | | | PL Units Moderate | | | Positive: (26-80) PL Units | | | High | | | Positive: ( > | | | 80) PL Units | | + + + + + + + + | Performing | Address | City/State/Zipcode | Phone Number | | Organization | | | | + + + + + | [facility] | [facility] [facility] | [place] [address] | | | PATHOLOGY | [address] | | | + + + + + | [facility] | [address] | [place] [address] | | | PATHOLOGY | [address] | | | + + + + + LUPUS INHIBITOR EVALUATION, PLASMA (11/29/2008 12:25 PM PDT) + + + + + + | Component | Value | Ref Range | Performed | Pathologist | | | | | At | Signature | + + + + + + | LUPUS | See cmnt | | [facility] | | | INHIBITOR | | | DEPARTMENT | | | EVAL - | | | OF | | | HEADER | | | PATHOLOGY | | + + + + + + | APTT | See cmnt | sec | [facility] | | | PATIENT | | | DEPARTMENT | | | | | | OF | | | | | | PATHOLOGY | | + + + + + + | HEXAGONAL | See cmnt | sec | [facility] | | | PL APTT | | | DEPARTMENT | | | | | | OF | | | | | | PATHOLOGY | | + + + + + + | DVVT | See cmnt | sec | [facility] | | | | | | DEPARTMENT | | | | | | OF | | | | | | PATHOLOGY | | + + + + + + | DVV CONFIRM | See cmnt | | [facility] | | | RATIO | | | DEPARTMENT | | | | | | OF | | | | | | PATHOLOGY | | + + + + + + + + | Specimen | + + | Blood - Blood | + + + + + | Narrative | Performed At | + + + | Lupus Inhibitor Panel LAC are evaluated using a | [facility] | | multi-test panel with different phospholipids to detect the LAC. If | DEPARTMENT OF | | one of the screening assays is positive, a confirmatory assay is | PATHOLOGY | | performed (DVV Confirm or Hexagonal APTT). The LAC is present when | | | one or both of the confirmatory assays are positive. Levels of | | | unfractionated heparin >1.0 U/mL may give elevated results. LMWH | | | >0.25 U/mL interfere with the assay. Coumadin may prolong the DVV | | | but does not affect the Hexagonal APTT. Please see "mis" test. | | + + + + + + + + | Performing | Address | City/State/Zipcode | Phone Number | | Organization | | | | + + + + + | [facility] | [address] [facility] | [place] [address] | | | PATHOLOGY | [address] | | | + + + + + | [facility] DE[facility]MENT OF | [address] | [place] [address] | | | PATHOLOGY | [address] | | | + + + + + CBC ONLY (11/29/2008 6:35 AM PDT) + + + + + + | Component | Value | Ref Range | Performed | Pathologist | | | | | At | Signature | + + + + + + | WHITE CELL | 11.8 (H) | 4.4 - 11.0 K/cu | [facility] | | | COUNT | | mm | DEPARTMENT | | | | | | OF | | | | | | PATHOLOGY | | + + + + + + | RED CELL | 2.68 (L) | 4.00 - 5.20 | [facility] | | | COUNT | | M/cu mm | DEPARTMENT | | | | | | OF | | | | | | PATHOLOGY | | + + + + + + | HEMOGLOBIN | 7.6 (L) | 12.0 - 16.0 | [facility] | | | | | g/dL | DEPARTMENT | | | | | | OF | | | | | | PATHOLOGY | | + + + + + + | HEMATOCRIT | 22.9 (L) | 36.0 - 46.0 % | [facility] | | | | | | DEPARTMENT | | | | | | OF | | | | | | PATHOLOGY | | + + + + + + | MCV | 85.6 | 80.0 - 96.0 fL | [facility] | | | | | | DEPARTMENT | | | | | | OF | | | | | | PATHOLOGY | | + + + + + + | MCHC | 32.9 (L) | 33.4 - 35.5 | [facility] | | | | | g/dL | DEPARTMENT | | | | | | OF | | | | | | PATHOLOGY | | + + + + + + | RDW | 17.7 (H) | 11.5 - 15.0 % | [facility] | | | | | | DEPARTMENT | | | | | | OF | | | | | | PATHOLOGY | | + + + + + + | PLATELET | 675 (H) | 150 - 400 K/cu | [facility] | | | COUNT | | mm | DEPARTMENT | | | | | | OF | | | | | | PATHOLOGY | | + + + + + + + + | Specimen | + + | Blood - Blood | + + + + + + + | Performing | Address | City/State/Zipcode | Phone Number | | Organization | | | | + + + + + | [facility] | [address] [facility] | [place] [address] | | | PATHOLOGY | [address] | | | + + + + + | [facility] | [address] [facility] | [place] [address] | | | PATHOLOGY | [address] | | | + + + + + BASIC METABOLIC SET (NA, K, CL, TCO2, BUN, CR, GLU, CA) (11/29/2008 6:35 AM PDT) + +---------+ + + + | Component | Value | Ref Range | Performed | Pathologist | | | | | At | Signature | + +---------+ + + + | GLUCOSE, | 163 (H) | 60 - 99 mg/dL | [facility] | | | PLASMA | | | DEPARTMENT | | | (LAB) | | | OF | | | | | | PATHOLOGY | | + +---------+ + + + | BUN, PLASMA | 9 | 6 - 20 mg/dL | [facility] | | | (LAB) | | | DEPARTMENT | | | | | | OF | | | | | | PATHOLOGY | | + +---------+ + + + | CREATININE | 0.63 | 0.60 - 1.10 | [facility] | | | PLASMA | | mg/dL | DEPARTMENT | | | (LAB) | | | OF | | | | | | PATHOLOGY | | + +---------+ + + + | SODIUM, | 140 | 134 - 143 | [facility] | | | PLASMA | | mmol/L | DEPARTMENT | | | (LAB) | | | OF | | | | | | PATHOLOGY | | + +---------+ + + + | POTASSIUM, | 3.9 | 3.4 - 5.0 | [facility] | | | PLASMA | | mmol/L | DEPARTMENT | | | (LAB) | | | OF | | | | | | PATHOLOGY | | + +---------+ + + + | CHLORIDE, | 110 (H) | 97 - 108 mmol/L | [facility] | | | PLASMA | | | DEPARTMENT | | | (LAB) | | | OF | | | | | | PATHOLOGY | | + +---------+ + + + | CALCIUM, | 8.7 | 8.6 - 10.2 | [facility] | | | PLASMA | | mg/dL | DEPARTMENT | | | (LAB) | | | OF | | | | | | PATHOLOGY | | + +---------+ + + + | TOTAL CO2, | 24 | 23 - 31 mmol/L | [facility] | | | PLASMA | | | DEPARTMENT | | | (LAB) | | | OF | | | | | | PATHOLOGY | | + +---------+ + + + + + | Specimen | + + | Blood - Blood | + + + + + + + | Performing | Address | City/State/Zipcode | Phone Number | | Organization | | | | + + + + + | [facility] | [address] | [place] [address] | | | PATHOLOGY | [address] | | | + + + + + | [facility] | [address] | [place] [address] | | | PATHOLOGY | [address] | | | + + + + + MAGNESIUM, PLASMA (11/29/2008 6:35 AM PDT) + +-------+ + + + | Component | Value | Ref Range | Performed | Pathologist | | | | | At | Signature | + +-------+ + + + | MAGNESIUM,P | 2.2 | 1.8 - 2.5 mg/dL | [facility] | | | LASMA | | | DEPARTMENT | | | | | | OF | | | | | | PATHOLOGY | | + +-------+ + + + + + | Specimen | + + | Blood - Blood | + + + + + + + | Performing | Address | City/State/Zipcode | Phone Number | | Organization | | | | + + + + + | [facility] DE[facility]MENT [facility] | [address] | [place] [address] | | | PATHOLOGY | [address] | | | + + + + + | [facility] | [address] | [place] [address] | | | PATHOLOGY | [address] | | | + + + + + PHOSPHORUS, PLASMA (11/29/2008 6:35 AM PDT) + +-------+ + + + | Component | Value | Ref Range | Performed | Pathologist | | | | | At | Signature | + +-------+ + + + | PHOSPHORUS, | 3.4 | 2.4 - 4.7 mg/dL | [facility] | | | PLASMA | | | DEPARTMENT | | | (LAB) | | | OF | | | | | | PATHOLOGY | | + +-------+ + + + + + | Specimen | + + | Blood - Blood | + + + + + + + | Performing | Address | City/State/Zipcode | Phone Number | | Organization | | | | + + + + + | [facility] | [address] [facility] | [place] [address] | | | PATHOLOGY | [address] | | | + + + + + | [facility] | [address] [facility] | [place] [address] | | | PATHOLOGY | [address] | | | + + + + + LAB REPORTS (11/29/2008 12:00 AM PDT) + + + | Narrative | Performed At | + + + | | | + + + + + | Procedure Note | + + | Debbie Springer - 11/29/2008 12:00 AM PDT | | | + + CBC ONLY (11/28/2008 7:30 AM PDT) + + + + + + | Component | Value | Ref Range | Performed | Pathologist | | | | | At | Signature | + + + + + + | WHITE CELL | 13.6 (H) | 4.4 - 11.0 K/cu | [facility] | | | COUNT | | mm | DEPARTMENT | | | | | | OF | | | | | | PATHOLOGY | | + + + + + + | RED CELL | 2.59 (L) | 4.00 - 5.20 | [facility] | | | COUNT | | M/cu mm | DEPARTMENT | | | | | | OF | | | | | | PATHOLOGY | | + + + + + + | HEMOGLOBIN | 7.4 (L) | 12.0 - 16.0 | [facility] | | | | | g/dL | DEPARTMENT | | | | | | OF | | | | | | PATHOLOGY | | + + + + + + | HEMATOCRIT | 22.4 (L) | 36.0 - 46.0 % | [facility] | | | | | | DEPARTMENT | | | | | | OF | | | | | | PATHOLOGY | | + + + + + + | MCV | 86.6 | 80.0 - 96.0 fL | [facility] | | | | | | DEPARTMENT | | | | | | OF | | | | | | PATHOLOGY | | + + + + + + | MCHC | 33.1 (L) | 33.4 - 35.5 | [facility] | | | | | g/dL | DEPARTMENT | | | | | | OF | | | | | | PATHOLOGY | | + + + + + + | RDW | 17.5 (H) | 11.5 - 15.0 % | [facility] | | | | | | DEPARTMENT | | | | | | OF | | | | | | PATHOLOGY | | + + + + + + | PLATELET | 711 (H) | 150 - 400 K/cu | [facility] | | | COUNT | | mm | DEPARTMENT | | | | | | OF | | | | | | PATHOLOGY | | + + + + + + + + | Specimen | + + | Blood - Blood | + + + + + + + | Performing | Address | City/State/Zipcode | Phone Number | | Organization | | | | + + + + + | [facility] | [address] | [place] [address] | | | PATHOLOGY | [address] | | | + + + + + | [facility] | [facility] | [place] [address] | | | PATHOLOGY | [address] | | | + + + + + BASIC METABOLIC SET (NA, K, CL, TCO2, BUN, CR, GLU, CA) (11/28/2008 7:30 AM PDT) + +---------+ + + + | Component | Value | Ref Range | Performed | Pathologist | | | | | At | Signature | + +---------+ + + + | GLUCOSE, | 168 (H) | 60 - 99 mg/dL | [facility] | | | PLASMA | | | DEPARTMENT | | | (LAB) | | | OF | | | | | | PATHOLOGY | | + +---------+ + + + | BUN, PLASMA | 8 | 6 - 20 mg/dL | [facility] | | | (LAB) | | | DEPARTMENT | | | | | | OF | | | | | | PATHOLOGY | | + +---------+ + + + | CREATININE | 0.73 | 0.60 - 1.10 | [facility] | | | PLASMA | | mg/dL | DEPARTMENT | | | (LAB) | | | OF | | | | | | PATHOLOGY | | + +---------+ + + + | SODIUM, | 137 | 134 - 143 | [facility] | | | PLASMA | | mmol/L | DEPARTMENT | | | (LAB) | | | OF | | | | | | PATHOLOGY | | + +---------+ + + + | POTASSIUM, | 3.7 | 3.4 - 5.0 | [facility] | | | PLASMA | | mmol/L | DEPARTMENT | | | (LAB) | | | OF | | | | | | PATHOLOGY | | + +---------+ + + + | CHLORIDE, | 108 | 97 - 108 mmol/L | [facility] | | | PLASMA | | | DEPARTMENT | | | (LAB) | | | OF | | | | | | PATHOLOGY | | + +---------+ + + + | CALCIUM, | 8.3 (L) | 8.6 - 10.2 | [facility] | | | PLASMA | | mg/dL | DEPARTMENT | | | (LAB) | | | OF | | | | | | PATHOLOGY | | + +---------+ + + + | TOTAL CO2, | 25 | 23 - 31 mmol/L | [facility] | | | PLASMA | | | DEPARTMENT | | | (LAB) | | | OF | | | | | | PATHOLOGY | | + +---------+ + + + + + | Specimen | + + | Blood - Blood | + + + + + + + | Performing | Address | City/State/Zipcode | Phone Number | | Organization | | | | + + + + + | [facility] | [facility] | [place] [address] | | | PATHOLOGY | [address] | | | + + + + + | [facility] | [id number] | [place] [address] | | | PATHOLOGY | [address] | | | + + + + + MAGNESIUM, PLASMA (11/28/2008 7:30 AM PDT) + +-------+ + + + | Component | Value | Ref Range | Performed | Pathologist | | | | | At | Signature | + +-------+ + + + | MAGNESIUM,P | 2.1 | 1.8 - 2.5 mg/dL | [facility] | | | LASMA | | | DEPARTMENT | | | | | | OF | | | | | | PATHOLOGY | | + +-------+ + + + + + | Specimen | + + | Blood - Blood | + + + + + + + | Performing | Address | City/State/Zipcode | Phone Number | | Organization | | | | + + + + + | [facility] | [address] | [place] [address] | | | PATHOLOGY | [address] | | | + + + + + | [facility] | [address] | [place] [address] | | | PATHOLOGY | [address] | | | + + + + + PHOSPHORUS, PLASMA (11/28/2008 7:30 AM PDT) + +-------+ + + + | Component | Value | Ref Range | Performed | Pathologist | | | | | At | Signature | + +-------+ + + + | PHOSPHORUS, | 3.5 | 2.4 - 4.7 mg/dL | [facility] | | | PLASMA | | | DEPARTMENT | | | (LAB) | | | OF | | | | | | PATHOLOGY | | + +-------+ + + + + + | Specimen | + + | Blood - Blood | + + + + + + + | Performing | Address | City/State/Zipcode | Phone Number | | Organization | | | | + + + + + | [facility] | [address] | [place] [address] | | | PATHOLOGY | [address] | | | + + + + + | [facility] | [address] | [place] [address] | | | PATHOLOGY | [address] | | | + + + + + RHEUMATOID FACTOR, SERUM (11/27/2008 2:01 PM PDT) + + + + + + | Component | Value | Ref Range | Performed | Pathologist | | | | | At | Signature | + + + + + + | RHEUMATOID | See cmnt | <15 IU/mL | | | | FACTOR | | | | | + + + + + + + + | Specimen | + + | Blood - Blood | + + + + + | Narrative | Performed At | + + + | Staff or dialysis draw required. | [facility] | | | DEPARTMENT OF | | | PATHOLOGY | + + + + + + + + | Performing | Address | City/State/Zipcode | Phone Number | | Organization | | | | + + + + + | [facility] | [address] | [place] [address] | | | PATHOLOGY | [address] | | | + + + + + | [facility] | [address] | [place] [address] | | | PATHOLOGY | [address] | | | + + + + + PROTEIN C ACTIVITY, PLASMA (11/27/2008 2:01 PM PDT) + + + + + + | Component | Value | Ref Range | Performed | Pathologist | | | | | At | Signature | + + + + + + | PROTEIN C | See cmnt | U/mL | [facility] | | | ACTIVITY | | | DEPARTMENT | | | | | | OF | | | | | | PATHOLOGY | | + + + + + + + + | Specimen | + + | Blood - Blood | + + + + + | Narrative | Performed At | + + + | Staff or dialysis draw required. | [facility] | | | DEPARTMENT OF | | | PATHOLOGY | + + + + + + + + | Performing | Address | City/State/Zipcode | Phone Number | | Organization | | | | + + + + + | [facility] | [facility] | [place] [address] | | | PATHOLOGY | [address] | | | + + + + + | [facility] | [facility] [facility] | [place] [address] | | | PATHOLOGY | [address] | | | + + + + + PROTEIN S ANTIGEN , FREE PLASMA (11/27/2008 2:01 PM PDT) + + + + + + | Component | Value | Ref Range | Performed | Pathologist | | | | | At | Signature | + + + + + + | PROTEIN S | See cmnt | % | | | | ANTIGEN,BEBE | | | | | | E | | | | | + + + + + + + + | Specimen | + + | Blood - Blood | + + + + + | Narrative | Performed At | + + + | Staff or dialysis draw required. | [facility] | | | DEPARTMENT OF | | | PATHOLOGY | + + + + + + + + | Performing | Address | City/State/Zipcode | Phone Number | | Organization | | | | + + + + + | [facility] | [address] | [place] [address] | | | PATHOLOGY | [address] | | | + + + + + | [facility] | [address] | [place] [address] | | | PATHOLOGY | [address] | | | + + + + + ANTI NUCLEAR AB SCREEN, SERUM (11/27/2008 2:01 PM PDT) + + + + + + | Component | Value | Ref Range | Performed | Pathologist | | | | | At | Signature | + + + + + + | BOB SCREEN | See cmnt | Negative | | | | ON HEP | | | | | | 2,SERUM | | | | | + + + + + + + + | Specimen | + + | Blood - Blood | + + + + + | Narrative | Performed At | + + + | New performing lab for Anti DNA Antibody and Anti | [facility] | | NDNA Ab Titer effective 05/08/08. Staff or dialysis draw required. | DEPARTMENT OF | | | PATHOLOGY | + + + + + + + + | Performing | Address | City/State/Zipcode | Phone Number | | Organization | | | | + + + + + | [facility] | [address] | [place] [address] | | | PATHOLOGY | [address] | | | + + + + + | [facility] | [address] | [place] [address] | | | PATHOLOGY | [address] | | | + + + + + PROTHROMBIN GENE MUTATION, BLOOD (11/27/2008 2:01 PM PDT) + + + + + + | Component | Value | Ref Range | Performed | Pathologist | | | | | At | Signature | + + + + + + | PROTHROMBIN | Duplicate order. | No Units | | | | GENE | | | | | | MUTATION | | | | | + + + + + + | SPECIMEN | Whole Blood | | | | | TYPE | | | | | | SUBMITTED | | | | | + + + + + + + + | Specimen | + + | Blood | + + + + + + + | Performing | Address | City/State/Zipcode | Phone Number | | Organization | | | | + + + + + | [facility] | [address] | [place] [address] | | | PATHOLOGY | [address] | | | + + + + + FACTOR V GAGAN BLOOD (11/27/2008 2:01 PM PDT) + + + + + + | Component | Value | Ref Range | Performed | Pathologist | | | | | At | Signature | + + + + + + | FACTOR V | Duplicate order. | | | | | (5) GAGAN | | | | | + + + + + + | SPECIMEN | Whole Blood | | | | | TYPE | | | | | | SUBMITTED | | | | | + + + + + + + + | Specimen | + + | Blood - Blood | + + + + + + + | Performing | Address | City/State/Zipcode | Phone Number | | Organization | | | | + + + + + | [facility] | [address] | [place] [address] | | | PATHOLOGY | [address] | | | + + + + + LUPUS INHIBITOR EVALUATION, PLASMA (11/27/2008 2:01 PM PDT) + + + + + + | Component | Value | Ref Range | Performed | Pathologist | | | | | At | Signature | + + + + + + | LUPUS | See cmnt | | [facility] | | | INHIBITOR | | | DEPARTMENT | | | EVAL - | | | OF | | | HEADER | | | PATHOLOGY | | + + + + + + | APTT | See cmnt | sec | [facility] | | | PATIENT | | | DEPARTMENT | | | | | | OF | | | | | | PATHOLOGY | | + + + + + + | HEXAGONAL | See cmnt | sec | [facility] | | | PL APTT | | | DEPARTMENT | | | | | | OF | | | | | | PATHOLOGY | | + + + + + + | DVVT | See cmnt | sec | [facility] | | | | | | DEPARTMENT | | | | | | OF | | | | | | PATHOLOGY | | + + + + + + | DVV CONFIRM | See cmnt | | [facility] | | | RATIO | | | DEPARTMENT | | | | | | OF | | | | | | PATHOLOGY | | + + + + + + + + | Specimen | + + | Blood - Blood | + + + + + | Narrative | Performed At | + + + | Lupus Inhibitor Panel LAC are evaluated using a | [facility] | | multi-test panel with different phospholipids to detect the LAC. If | DEPARTMENT OF | | one of the screening assays is positive, a confirmatory assay is | PATHOLOGY | | performed (DVV Confirm or Hexagonal APTT). The LAC is present when | | | one or both of the confirmatory assays are positive. Levels of | | | unfractionated heparin >1.0 U/mL may give elevated results. LMWH | | | >0.25 U/mL interfere with the assay. Coumadin may prolong the DVV | | | but does not affect the Hexagonal APTT. Staff or dialysis draw | | | required. | | + + + + + + + + | Performing | Address | City/State/Zipcode | Phone Number | | Organization | | | | + + + + + | [facility] | [address] [place] [address] | [place] [address] | | | PATHOLOGY | [address] | | | + + + + + | [facility] | [facility] | [place] [address] | | | PATHOLOGY | [address] | | | + + + + + ANTICARDIOLIPIN GMA, SERUM (11/27/2008 2:01 PM PDT) + + + + + + | Component | Value | Ref Range | Performed | Pathologist | | | | | At | Signature | + + + + + + | ANTICARDIOL | See cmnt | PL Units | [facility] | | | IPIN IGG | | | DEPARTMENT | | | | | | OF | | | | | | PATHOLOGY | | + + + + + + | ANTICARDIOL | See cmnt | PL Units | [facility] | | | IPIN IGM | | | DEPARTMENT | | | | | | OF | | | | | | PATHOLOGY | | + + + + + + | ANTICARDIOL | See cmnt | PL Units | [facility] | | | IPIN IGA | | | DEPARTMENT | | | | | | OF | | | | | | PATHOLOGY | | + + + + + + + + | Specimen | + + | Blood - Blood | + + + + + | Narrative | Performed At | + + + | Anticardiolipin GMA Interpretive Data for | [facility] | | Anticardiolipin Antibodies IgG, IgM | DEPARTMENT OF | | Negative: | PATHOLOGY | | (<9-19) PL Units | | | Low | | | Positive: (20-30) | | | PL Units Moderate | | | Positive: (31-80) PL Units | | | High | | | Positive: ( > | | | 80) PL Units Interpretive Data for | | | Anticardiolipin Antibody IgA | | | Negative: | | | (<9-14) PL Units | | | Low | | | Positive: (15-25) | | | PL Units Moderate | | | Positive: (26-80) PL Units | | | High | | | Positive: ( > | | | 80) PL Units Staff or dialysis draw required. | | + + + + + + + + | Performing | Address | City/State/Zipcode | Phone Number | | Organization | | | | + + + + + | [facility] | [address] | [place] [address] | | | PATHOLOGY | [address] | | | + + + + + | [facility] | [address] | [place] [address] | | | PATHOLOGY | [address] | | | + + + + + LUPUS INHIBITOR EVALUATION, PLASMA (11/27/2008 2:01 PM PDT) + + + + + + | Component | Value | Ref Range | Performed | Pathologist | | | | | At | Signature | + + + + + + | LUPUS | See cmnt | | [facility] | | | INHIBITOR | | | DEPARTMENT | | | EVAL - | | | OF | | | HEADER | | | PATHOLOGY | | + + + + + + | APTT | See cmnt | sec | [facility] | | | PATIENT | | | DEPARTMENT | | | | | | OF | | | | | | PATHOLOGY | | + + + + + + | HEXAGONAL | See cmnt | sec | [facility] | | | PL APTT | | | DEPARTMENT | | | | | | OF | | | | | | PATHOLOGY | | + + + + + + | DVVT | See cmnt | sec | [facility] | | | | | | DEPARTMENT | | | | | | OF | | | | | | PATHOLOGY | | + + + + + + | DVV CONFIRM | See cmnt | | [facility] | | | RATIO | | | DEPARTMENT | | | | | | OF | | | | | | PATHOLOGY | | + + + + + + + + | Specimen | + + | Blood - Blood | + + + + + | Narrative | Performed At | + + + | Lupus Inhibitor Panel LAC are evaluated using a | [facility] | | multi-test panel with different phospholipids to detect the LAC. If | DEPARTMENT OF | | one of the screening assays is positive, a confirmatory assay is | PATHOLOGY | | performed (DVV Confirm or Hexagonal APTT). The LAC is present when | | | one or both of the confirmatory assays are positive. Levels of | | | unfractionated heparin >1.0 U/mL may give elevated results. LMWH | | | >0.25 U/mL interfere with the assay. Coumadin may prolong the DVV | | | but does not affect the Hexagonal APTT. Staff or dialysis draw | | | required. | | + + + + + + + + | Performing | Address | City/State/Zipcode | Phone Number | | Organization | | | | + + + + + | [facility] | [address] [place] [address] | [place] [address] | | | PATHOLOGY | [address] | | | + + + + + | [facility] | [address] | [place] [address] | | | PATHOLOGY | [address] | | | + + + + + TYPE AND SCREEN (11/27/2008 10:04 AM PDT) + + + + + + | Component | Value | Ref Range | Performed | Pathologist | | | | | At | Signature | + + + + + + | ABO GROUP | A | | [facility] | | | | | | DEPARTMENT | | | | | | OF | | | | | | PATHOLOGY | | + + + + + + | RH TYPE | Positive | | [facility] | | | | | | DEPARTMENT | | | | | | OF | | | | | | PATHOLOGY | | + + + + + + | Antibody | Negative | | [facility] | | | Screen | | | DEPARTMENT | | | | | | OF | | | | | | PATHOLOGY | | + + + + + + + + | Specimen | + + | Blood - Blood | + + + + + + + | Performing | Address | City/State/Zipcode | Phone Number | | Organization | | | | + + + + + | [facility] | [address] | [place] [address] | | | PATHOLOGY | [address] | | | + + + + + | [facility] | [address] | [place] [address] | | | PATHOLOGY | [address] | | | + + + + + CBC ONLY (11/27/2008 7:16 AM PDT) + + + + + + | Component | Value | Ref Range | Performed | Pathologist | | | | | At | Signature | + + + + + + | WHITE CELL | 11.2 (H) | 4.4 - 11.0 K/cu | [facility] | | | COUNT | | mm | DEPARTMENT | | | | | | OF | | | | | | PATHOLOGY | | + + + + + + | RED CELL | 2.80 (L) | 4.00 - 5.20 | [facility] | | | COUNT | | M/cu mm | DEPARTMENT | | | | | | OF | | | | | | PATHOLOGY | | + + + + + + | HEMOGLOBIN | 8.0 (L) | 12.0 - 16.0 | [facility] | | | | | g/dL | DEPARTMENT | | | | | | OF | | | | | | PATHOLOGY | | + + + + + + | HEMATOCRIT | 24.0 (L) | 36.0 - 46.0 % | [facility] | | | | | | DEPARTMENT | | | | | | OF | | | | | | PATHOLOGY | | + + + + + + | MCV | 85.8 | 80.0 - 96.0 fL | [facility] | | | | | | DEPARTMENT | | | | | | OF | | | | | | PATHOLOGY | | + + + + + + | MCHC | 33.3 (L) | 33.4 - 35.5 | [facility] | | | | | g/dL | DEPARTMENT | | | | | | OF | | | | | | PATHOLOGY | | + + + + + + | RDW | 17.0 (H) | 11.5 - 15.0 % | [facility] | | | | | | DEPARTMENT | | | | | | OF | | | | | | PATHOLOGY | | + + + + + + | PLATELET | 630 (H) | 150 - 400 K/cu | [facility] | | | COUNT | | mm | DEPARTMENT | | | | | | OF | | | | | | PATHOLOGY | | + + + + + + + + | Specimen | + + | Blood - Blood | + + + + + + + | Performing | Address | City/State/Zipcode | Phone Number | | Organization | | | | + + + + + | [facility] | [address] | [place] [address] | | | PATHOLOGY | [address] | | | + + + + + | [facility] | [address] | [place] [address] | | | PATHOLOGY | [address] | | | + + + + + MAGNESIUM, PLASMA (11/27/2008 7:16 AM PDT) + +-------+ + + + | Component | Value | Ref Range | Performed | Pathologist | | | | | At | Signature | + +-------+ + + + | MAGNESIUM,P | 2.2 | 1.8 - 2.5 mg/dL | [facility] | | | L[facility] | | | DEPARTMENT | | | | | | OF | | | | | | PATHOLOGY | | + +-------+ + + + + + | Specimen | + + | Blood - Blood | + + + + + + + | Performing | Address | City/State/Zipcode | Phone Number | | Organization | | | | + + + + + | [facility] | [address] | [place] [address] | | | PATHOLOGY | [address] | | | + + + + + | [facility] | [address] | [place] [address] | | | PATHOLOGY | [address] | | | + + + + + BASIC METABOLIC SET (NA, K, CL, TCO2, BUN, CR, GLU, CA) (11/27/2008 7:16 AM PDT) + +---------+ + + + | Component | Value | Ref Range | Performed | Pathologist | | | | | At | Signature | + +---------+ + + + | GLUCOSE, | 115 (H) | 60 - 99 mg/dL | [facility] | | | PLASMA | | | DEPARTMENT | | | (LAB) | | | OF | | | | | | PATHOLOGY | | + +---------+ + + + | BUN, PLASMA | 10 | 6 - 20 mg/dL | [facility] | | | (LAB) | | | DEPARTMENT | | | | | | OF | | | | | | PATHOLOGY | | + +---------+ + + + | CREATININE | 0.60 | 0.60 - 1.10 | [facility] | | | PLASMA | | mg/dL | DEPARTMENT | | | (LAB) | | | OF | | | | | | PATHOLOGY | | + +---------+ + + + | SODIUM, | 139 | 134 - 143 | [facility] | | | PLASMA | | mmol/L | DEPARTMENT | | | (LAB) | | | OF | | | | | | PATHOLOGY | | + +---------+ + + + | POTASSIUM, | 4.1 | 3.4 - 5.0 | [facility] | | | PLASMA | | mmol/L | DEPARTMENT | | | (LAB) | | | OF | | | | | | PATHOLOGY | | + +---------+ + + + | CHLORIDE, | 107 | 97 - 108 mmol/L | [facility] | | | PLASMA | | | DEPARTMENT | | | (LAB) | | | OF | | | | | | PATHOLOGY | | + +---------+ + + + | CALCIUM, | 8.7 | 8.6 - 10.2 | [facility] | | | PLASMA | | mg/dL | DEPARTMENT | | | (LAB) | | | OF | | | | | | PATHOLOGY | | + +---------+ + + + | TOTAL CO2, | 25 | 23 - 31 mmol/L | [facility] | | | PLASMA | | | DEPARTMENT | | | (LAB) | | | OF | | | | | | PATHOLOGY | | + +---------+ + + + + + | Specimen | + + | Blood - Blood | + + + + + + + | Performing | Address | City/State/Zipcode | Phone Number | | Organization | | | | + + + + + | [facility] | [address] | [place] [address] | | | PATHOLOGY | [address] | | | + + + + + | [facility] | [address] [place] [address] | [place] [address] | | | PATHOLOGY | [address] | | | + + + + + PHOSPHORUS, PLASMA (11/27/2008 7:16 AM PDT) + +-------+ + + + | Component | Value | Ref Range | Performed | Pathologist | | | | | At | Signature | + +-------+ + + + | PHOSPHORUS, | 3.4 | 2.4 - 4.7 mg/dL | [facility] | | | PLASMA | | | DEPARTMENT | | | (LAB) | | | OF | | | | | | PATHOLOGY | | + +-------+ + + + + + | Specimen | + + | Blood - Blood | + + + + + + + | Performing | Address | City/State/Zipcode | Phone Number | | Organization | | | | + + + + + | [facility] | [address] | [place] [address] | | | PATHOLOGY | [address] | | | + + + + + | [facility] | [address] | [place] [address] | | | PATHOLOGY | [address] | | | + + + + + CBC ONLY (11/26/2008 6:47 AM PDT) + + + + + + | Component | Value | Ref Range | Performed | Pathologist | | | | | At | Signature | + + + + + + | WHITE CELL | 13.6 (H) | 4.4 - 11.0 K/cu | [facility] | | | COUNT | | mm | DEPARTMENT | | | | | | OF | | | | | | PATHOLOGY | | + + + + + + | RED CELL | 2.72 (L) | 4.00 - 5.20 | [facility] | | | COUNT | | M/cu mm | DEPARTMENT | | | | | | OF | | | | | | PATHOLOGY | | + + + + + + | HEMOGLOBIN | 7.8 (L) | 12.0 - 16.0 | [facility] | | | | | g/dL | DEPARTMENT | | | | | | OF | | | | | | PATHOLOGY | | + + + + + + | HEMATOCRIT | 23.7 (L) | 36.0 - 46.0 % | [facility] | | | | | | DEPARTMENT | | | | | | OF | | | | | | PATHOLOGY | | + + + + + + | MCV | 87.0 | 80.0 - 96.0 fL | [facility] | | | | | | DEPARTMENT | | | | | | OF | | | | | | PATHOLOGY | | + + + + + + | MCHC | 33.0 (L) | 33.4 - 35.5 | [facility] | | | | | g/dL | DEPARTMENT | | | | | | OF | | | | | | PATHOLOGY | | + + + + + + | RDW | 16.4 (H) | 11.5 - 15.0 % | [facility] | | | | | | DEPARTMENT | | | | | | OF | | | | | | PATHOLOGY | | + + + + + + | PLATELET | 787 (H) | 150 - 400 K/cu | [facility] | | | COUNT | | mm | DEPARTMENT | | | | | | OF | | | | | | PATHOLOGY | | + + + + + + + + | Specimen | + + | Blood - Blood | + + + + + + + | Performing | Address | City/State/Zipcode | Phone Number | | Organization | | | | + + + + + | [facility] | [address] | [place] [address] | | | PATHOLOGY | [address] | | | + + + + + | [facility] | [address] [facility] | [place] [address] | | | PATHOLOGY | [address] | | | + + + + + MAGNESIUM, PLASMA (11/26/2008 6:47 AM PDT) + +-------+ + + + | Component | Value | Ref Range | Performed | Pathologist | | | | | At | Signature | + +-------+ + + + | MAGNESIUM,P | 2.1 | 1.8 - 2.5 mg/dL | [facility] | | | LASMA | | | DEPARTMENT | | | | | | OF | | | | | | PATHOLOGY | | + +-------+ + + + + + | Specimen | + + | Blood - Blood | + + + + + + + | Performing | Address | City/State/Zipcode | Phone Number | | Organization | | | | + + + + + | [facility] | [address] | [place] [address] | | | PATHOLOGY | [address] | | | + + + + + | [facility] | [address] | [place] [address] | | | PATHOLOGY | [address] | | | + + + + + BASIC METABOLIC SET (NA, K, CL, TCO2, BUN, CR, GLU, CA) (11/26/2008 6:47 AM PDT) + +---------+ + + + | Component | Value | Ref Range | Performed | Pathologist | | | | | At | Signature | + +---------+ + + + | GLUCOSE, | 163 (H) | 60 - 99 mg/dL | [facility] | | | PLASMA | | | DEPARTMENT | | | (LAB) | | | OF | | | | | | PATHOLOGY | | + +---------+ + + + | BUN, PLASMA | 12 | 6 - 20 mg/dL | [facility] | | | (LAB) | | | DEPARTMENT | | | | | | OF | | | | | | PATHOLOGY | | + +---------+ + + + | CREATININE | 0.70 | 0.60 - 1.10 | [facility] | | | PLASMA | | mg/dL | DEPARTMENT | | | (LAB) | | | OF | | | | | | PATHOLOGY | | + +---------+ + + + | SODIUM, | 140 | 134 - 143 | [facility] | | | PLASMA | | mmol/L | DEPARTMENT | | | (LAB) | | | OF | | | | | | PATHOLOGY | | + +---------+ + + + | POTASSIUM, | 4.1 | 3.4 - 5.0 | [facility] | | | PLASMA | | mmol/L | DEPARTMENT | | | (LAB) | | | OF | | | | | | PATHOLOGY | | + +---------+ + + + | CHLORIDE, | 107 | 97 - 108 mmol/L | [facility] | | | PLASMA | | | DEPARTMENT | | | (LAB) | | | OF | | | | | | PATHOLOGY | | + +---------+ + + + | CALCIUM, | 8.7 | 8.6 - 10.2 | [facility] | | | PLASMA | | mg/dL | DEPARTMENT | | | (LAB) | | | OF | | | | | | PATHOLOGY | | + +---------+ + + + | TOTAL CO2, | 23 | 23 - 31 mmol/L | [facility] | | | PLASMA | | | DEPARTMENT | | | (LAB) | | | OF | | | | | | PATHOLOGY | | + +---------+ + + + + + | Specimen | + + | Blood - Blood | + + + + + + + | Performing | Address | City/State/Zipcode | Phone Number | | Organization | | | | + + + + + | [facility] | [address] | [place] [address] | | | PATHOLOGY | [address] | | | + + + + + | [facility] | [address] | [place] [address] | | | PATHOLOGY | [address] | | | + + + + + PHOSPHORUS, PLASMA (11/26/2008 6:47 AM PDT) + +-------+ + + + | Component | Value | Ref Range | Performed | Pathologist | | | | | At | Signature | + +-------+ + + + | PHOSPHORUS, | 3.9 | 2.4 - 4.7 mg/dL | [facility] | | | PLASMA | | | DEPARTMENT | | | (LAB) | | | OF | | | | | | PATHOLOGY | | + +-------+ + + + + + | Specimen | + + | Blood - Blood | + + + + + + + | Performing | Address | City/State/Zipcode | Phone Number | | Organization | | | | + + + + + | [facility] | [facility] | [place] [address] | | | PATHOLOGY | [address] | | | + + + + + | [facility] | [address] | [place] [address] | | | PATHOLOGY | [address] | | | + + + + + OPERATION RECORD (11/26/2008 12:00 AM PDT) + + + | Narrative | Performed At | + + + | [id number] | | | [id number] | | | [id number] [facility] | | | [place] [id number] | | | Date: 11/27/2008 Attending | | | Surgeon: Misbah Quijano M.D. | | | Governor Assembler(s): Yvette Torres | | | Aguilar Paula Preoperative Diagnosis(es): Open fasciotomy | | | wound, left forearm. Postoperative Diagnosis(es): Open | | | fasciotomy wound, left forearm. Procedures Performed: | | | Split-thickness skin graft to open fasciotomy, left forearm (91 sq | | | cm). Anesthesia: General endotracheal. Indications: | | | Mrs. Mcclellan had undergone a revascularization procedure of her left | | | upper extremity following an injury to the left upper | | | extremity. As part of the revascularization procedure, she | | | underwent fasciotomy of the flexor surface of the forearm. She | | | is brought to the operating room at this time for closure of this | | | fasciotomy site with a split-thickness skin graft. It is | | | approximately 91 sq cm in size and well granulated. Findings: | | | At the time of operation, the wound was clean and well granulated. | | | Tissue to Pathology: None. Estimated Blood Loss: | | | Minimal. Technical Description: Ms. Mcclellan was brought to the | | | operating room and placed on the operating table supine. Her | | | left upper extremity and right thigh were prepped with ChloraPrep | | | and draped as a sterile field. Saline was then used to | | | thoroughly irrigate the open fasciotomy wound on the left forearm | | | flexor surface and once it was copiously cleaned, a split-thickness | | | skin graft twelve-one thousandths of an inch in thickness was | | | harvested from her left thigh with a Brown dermatome. It was | | | meshed 1.5:1 and then placed on the open fasciotomy wound in the | | | left forearm and secured with barbi. A negative pressure | | | dressing was then applied and an OpSite applied to the donor | | | site. She was transferred to the recovery area in stable | | | condition. She seemed to have tolerated the procedure well. | | | MISBAH QUIJANO MD service center technician [facility] / [id number] | | | / [id number] / [id number] / | | | | | + + + + + | Procedure Note | + + | Misbah Quijano MD - 11/27/2008 12:00 AM PDT [id number] | | [id number] [id number] [facility] | | [id number] Date: 11/27/2008 Attending Surgeon: Misbah | | Renu Quijano M.D. Governor Assembler(s): Yvette Paula M.D. | | Preoperative Diagnosis(es):Open fasciotomy wound, left forearm. Postoperative | | Diagnosis(es):Open fasciotomy wound, left forearm. Procedures Performed:Split-thickness | | skin graft to open fasciotomy, left forearm (91 sq cm). Anesthesia:General | | endotracheal. Indications:Mrs. Mcclellan had undergone a revascularization procedure of | | her left upperextremity following an injury to the left upper extremity. As part of | | therevascularization procedure, she underwent fasciotomy of the flexor surfaceof the | | forearm. She is brought to the operating room at this time forclosure of this | | fasciotomy site with a split-thickness skin graft. It isapproximately 91 sq cm in size | | and well granulated. Findings:At the time of operation, the wound was clean and well | | granulated. Tissue to Pathology:None. Estimated Blood Loss:Minimal. Technical | | Description:Ms. Mcclellan was brought to the operating room and placed on the | | operatingtable supine. Her left upper extremity and right thigh were prepped | | withChloraPrep and draped as a sterile field. Saline was then used tothoroughly | | irrigate the open fasciotomy wound on the left forearm flexorsurface and once it was | | copiously cleaned, a split-thickness skin grafttwelve-one thousandths of an inch in | | thickness was harvested from her leftthigh with a Brown dermatome. It was meshed 1.5:1 | | and then placed on theopen fasciotomy wound in the left forearm and secured with | | barbi. Anegative pressure dressing was then applied and an OpSite applied to thedonor | | site. She was transferred to the recovery area in stable condition.She seemed to have | | tolerated the procedure well. MISBAH QUIJANO MDProfessor of Surgery GLM / [id number] | | / [id number] / [id number] / T: 11/27/2008 | |Anesthesia: | |General endotracheal. | | | | | |Indications: | |Mrs. Mcclellan had undergone a revascularization procedure of her left upper | |extremity following an injury to the left upper extremity. As part of the | |revascularization procedure, she underwent fasciotomy of the flexor surface | |of the forearm. She is brought to the operating room at this time for | |closure of this fasciotomy site with a split-thickness skin graft. It is | |approximately 91 sq cm in size and well granulated. | | | | | |Findings: | |At the time of operation, the wound was clean and well granulated. | | | | | |Tissue to Pathology: | |None. | | | | | |Estimated Blood Loss: | |Minimal. | | | | | |Technical Description: | |Ms. Mcclellan was brought to the operating room and placed on the operating | |table supine. Her left upper extremity and right thigh were prepped with | |ChloraPrep and draped as a sterile field. Saline was then used to | |thoroughly irrigate the open fasciotomy wound on the left forearm flexor | |surface and once it was copiously cleaned, a split-thickness skin graft | |twelve-one thousandths of an inch in thickness was harvested from her left | |thigh with a Brown dermatome. It was meshed 1.5:1 and then placed on the | |open fasciotomy wound in the left forearm and secured with barbi. A | |negative pressure dressing was then applied and an OpSite applied to the | |donor site. She was transferred to the recovery area in stable condition. | |She seemed to have tolerated the procedure well. | | | | | | | | | |MISBAH QUIJANO MD | |service center technician | | | | | |GLM / HS | |[id number] / [id number] / [id number] / | | | | | | | | | | | | | | | | | | | | | + + CBC ONLY (11/25/2008 6:40 AM PDT) + + + + + + | Component | Value | Ref Range | Performed | Pathologist | | | | | At | Signature | + + + + + + | WHITE CELL | 14.6 (H) | 4.4 - 11.0 K/cu | [facility] | | | COUNT | | mm | DEPARTMENT | | | | | | OF | | | | | | PATHOLOGY | | + + + + + + | RED CELL | 2.57 (L) | 4.00 - 5.20 | [facility] | | | COUNT | | M/cu mm | DEPARTMENT | | | | | | OF | | | | | | PATHOLOGY | | + + + + + + | HEMOGLOBIN | 7.6 (L) | 12.0 - 16.0 | [facility] | | | | | g/dL | DEPARTMENT | | | | | | OF | | | | | | PATHOLOGY | | + + + + + + | HEMATOCRIT | 22.3 (L) | 36.0 - 46.0 % | [facility] | | | | | | DEPARTMENT | | | | | | OF | | | | | | PATHOLOGY | | + + + + + + | MCV | 86.8 | 80.0 - 96.0 fL | [facility] | | | | | | DEPARTMENT | | | | | | OF | | | | | | PATHOLOGY | | + + + + + + | MCHC | 34.0 | 33.4 - 35.5 | [facility] | | | | | g/dL | DEPARTMENT | | | | | | OF | | | | | | PATHOLOGY | | + + + + + + | RDW | 16.7 (H) | 11.5 - 15.0 % | [facility] | | | | | | DEPARTMENT | | | | | | OF | | | | | | PATHOLOGY | | + + + + + + | PLATELET | 611 (H) | 150 - 400 K/cu | [facility] | | | COUNT | | mm | DEPARTMENT | | | | | | OF | | | | | | PATHOLOGY | | + + + + + + + + | Specimen | + + | Blood - Blood | + + + + + + + | Performing | Address | City/State/Zipcode | Phone Number | | Organization | | | | + + + + + | [facility] DEPARTMENT [facility] | [address] | [place] [address] | | | PATHOLOGY | [address] | | | + + + + + | [facility] | [address] | [place] [address] | | | PATHOLOGY | [address] | | | + + + + + MAGNESIUM, PLASMA (11/25/2008 6:40 AM PDT) + +-------+ + + + | Component | Value | Ref Range | Performed | Pathologist | | | | | At | Signature | + +-------+ + + + | MAGNESIUM,P | 2.2 | 1.8 - 2.5 mg/dL | [facility] | | | LASMA | | | DEPARTMENT | | | | | | OF | | | | | | PATHOLOGY | | + +-------+ + + + + + | Specimen | + + | Blood - Blood | + + + + + + + | Performing | Address | City/State/Zipcode | Phone Number | | Organization | | | | + + + + + | [facility] | [address] | [place] [address] | | | PATHOLOGY | [address] | | | + + + + + | [facility] | [address] | [place] [address] | | | PATHOLOGY | [address] | | | + + + + + BASIC METABOLIC SET (NA, K, CL, TCO2, BUN, CR, GLU, CA) (11/25/2008 6:40 AM PDT) + +---------+ + + + | Component | Value | Ref Range | Performed | Pathologist | | | | | At | Signature | + +---------+ + + + | GLUCOSE, | 101 (H) | 60 - 99 mg/dL | [facility] | | | PLASMA | | | DEPARTMENT | | | (LAB) | | | OF | | | | | | PATHOLOGY | | + +---------+ + + + | BUN, PLASMA | 10 | 6 - 20 mg/dL | [facility] | | | (LAB) | | | DEPARTMENT | | | | | | OF | | | | | | PATHOLOGY | | + +---------+ + + + | CREATININE | 0.74 | 0.60 - 1.10 | [facility] | | | PLASMA | | mg/dL | DEPARTMENT | | | (LAB) | | | OF | | | | | | PATHOLOGY | | + +---------+ + + + | SODIUM, | 139 | 134 - 143 | [facility] | | | PLASMA | | mmol/L | DEPARTMENT | | | (LAB) | | | OF | | | | | | PATHOLOGY | | + +---------+ + + + | POTASSIUM, | 3.9 | 3.4 - 5.0 | [facility] | | | PLASMA | | mmol/L | DEPARTMENT | | | (LAB) | | | OF | | | | | | PATHOLOGY | | + +---------+ + + + | CHLORIDE, | 105 | 97 - 108 mmol/L | [facility] | | | PLASMA | | | DEPARTMENT | | | (LAB) | | | OF | | | | | | PATHOLOGY | | + +---------+ + + + | CALCIUM, | 8.4 (L) | 8.6 - 10.2 | [facility] | | | PLASMA | | mg/dL | DEPARTMENT | | | (LAB) | | | OF | | | | | | PATHOLOGY | | + +---------+ + + + | TOTAL CO2, | 26 | 23 - 31 mmol/L | [facility] | | | PLASMA | | | DEPARTMENT | | | (LAB) | | | OF | | | | | | PATHOLOGY | | + +---------+ + + + + + | Specimen | + + | Blood - Blood | + + + + + + + | Performing | Address | City/State/Zipcode | Phone Number | | Organization | | | | + + + + + | [facility] DE[facility]MENT | [address] | [place] [address] | | | PATHOLOGY | [address] | | | + + + + + | [facility] DE[facility]MENT [facility] | [address] | [place] [address] | | | PATHOLOGY | [address] | | | + + + + + PHOSPHORUS, PLASMA (11/25/2008 6:40 AM PDT) + +-------+ + + + | Component | Value | Ref Range | Performed | Pathologist | | | | | At | Signature | + +-------+ + + + | PHOSPHORUS, | 4.0 | 2.4 - 4.7 mg/dL | [facility] | | | PLASMA | | | DEPARTMENT | | | (LAB) | | | OF | | | | | | PATHOLOGY | | + +-------+ + + + + + | Specimen | + + | Blood - Blood | + + + + + + + | Performing | Address | City/State/Zipcode | Phone Number | | Organization | | | | + + + + + | [facility] | [address] | [place] [address] | | | PATHOLOGY | [address] | | | + + + + + | [facility] | [address] | [place] [address] | | | PATHOLOGY | [address] | | | + + + + + CBC ONLY (11/24/2008 7:05 AM PDT) + + + + + + | Component | Value | Ref Range | Performed | Pathologist | | | | | At | Signature | + + + + + + | RED CELL | 2.59 (L) | 4.00 - 5.20 | [facility] | | | COUNT | | M/cu mm | DEPARTMENT | | | | | | OF | | | | | | PATHOLOGY | | + + + + + + | HEMOGLOBIN | 7.6 (L) | 12.0 - 16.0 | [facility] | | | | | g/dL | DEPARTMENT | | | | | | OF | | | | | | PATHOLOGY | | + + + + + + | HEMATOCRIT | 22.9 (L) | 36.0 - 46.0 % | [facility] | | | | | | DEPARTMENT | | | | | | OF | | | | | | PATHOLOGY | | + + + + + + | MCV | 88.3 | 80.0 - 96.0 fL | [facility] | | | | | | DEPARTMENT | | | | | | OF | | | | | | PATHOLOGY | | + + + + + + | MCHC | 33.3 (L) | 33.4 - 35.5 | [facility] | | | | | g/dL | DEPARTMENT | | | | | | OF | | | | | | PATHOLOGY | | + + + + + + | RDW | 16.4 (H) | 11.5 - 15.0 % | [facility] | | | | | | DEPARTMENT | | | | | | OF | | | | | | PATHOLOGY | | + + + + + + | PLATELET | 745 (H) | 150 - 400 K/cu | [facility] | | | COUNT | | mm | DEPARTMENT | | | | | | OF | | | | | | PATHOLOGY | | + + + + + + | WHITE CELL | 20.3 (H) | 4.4 - 11.0 K/cu | [facility] | | | COUNT | | mm | DEPARTMENT | | | | | | OF | | | | | | PATHOLOGY | | + + + + + + | CBC | Final WBC Report. | | [facility] | | | COMMENTS | | | DEPARTMENT | | | | | | OF | | | | | | PATHOLOGY | | + + + + + + + + | Specimen | + + | Blood - Blood | + + + + + | Narrative | Performed At | + + + | * Corrected 11/24/08 08:53: HUI MITCHELL, prev report: Not | [facility] | | reported | DEPARTMENT OF | | | PATHOLOGY | + + + + + + + + | Performing | Address | City/State/Zipcode | Phone Number | | Organization | | | | + + + + + | [facility] | [address] | [place] [address] | | | PATHOLOGY | [address] | | | + + + + + | [facility] | [facility] [address] | [place] [address] | | | PATHOLOGY | [address] | | | + + + + + MAGNESIUM, PLASMA (11/24/2008 7:05 AM PDT) + +-------+ + + + | Component | Value | Ref Range | Performed | Pathologist | | | | | At | Signature | + +-------+ + + + | MAGNESIUM,P | 2.2 | 1.8 - 2.5 mg/dL | [facility] | | | LASMA | | | DEPARTMENT | | | | | | OF | | | | | | PATHOLOGY | | + +-------+ + + + + + | Specimen | + + | Blood - Blood | + + + + + + + | Performing | Address | City/State/Zipcode | Phone Number | | Organization | | | | + + + + + | [facility]MENT [facility] | [address] | [place] [address] | | | PATHOLOGY | [address] | | | + + + + + | [facility] | [address] | [place] [address] | | | PATHOLOGY | [address] | | | + + + + + BASIC METABOLIC SET (NA, K, CL, TCO2, BUN, CR, GLU, CA) (11/24/2008 7:05 AM PDT) + +---------+ + + + | Component | Value | Ref Range | Performed | Pathologist | | | | | At | Signature | + +---------+ + + + | GLUCOSE, | 106 (H) | 60 - 99 mg/dL | [facility] | | | PLASMA | | | DEPARTMENT | | | (LAB) | | | OF | | | | | | PATHOLOGY | | + +---------+ + + + | BUN, PLASMA | 7 | 6 - 20 mg/dL | [facility] | | | (LAB) | | | DEPARTMENT | | | | | | OF | | | | | | PATHOLOGY | | + +---------+ + + + | CREATININE | 0.64 | 0.60 - 1.10 | [facility] | | | PLASMA | | mg/dL | DEPARTMENT | | | (LAB) | | | OF | | | | | | PATHOLOGY | | + +---------+ + + + | SODIUM, | 139 | 134 - 143 | [facility] | | | PLASMA | | mmol/L | DEPARTMENT | | | (LAB) | | | OF | | | | | | PATHOLOGY | | + +---------+ + + + | POTASSIUM, | 3.7 | 3.4 - 5.0 | [facility] | | | PLASMA | | mmol/L | DEPARTMENT | | | (LAB) | | | OF | | | | | | PATHOLOGY | | + +---------+ + + + | CHLORIDE, | 104 | 97 - 108 mmol/L | [facility] | | | PLASMA | | | DEPARTMENT | | | (LAB) | | | OF | | | | | | PATHOLOGY | | + +---------+ + + + | CALCIUM, | 8.3 (L) | 8.6 - 10.2 | [facility] | | | PLASMA | | mg/dL | DEPARTMENT | | | (LAB) | | | OF | | | | | | PATHOLOGY | | + +---------+ + + + | TOTAL CO2, | 29 | 23 - 31 mmol/L | [facility] | | | PLASMA | | | DEPARTMENT | | | (LAB) | | | OF | | | | | | PATHOLOGY | | + +---------+ + + + + + | Specimen | + + | Blood - Blood | + + + + + + + | Performing | Address | City/State/Zipcode | Phone Number | | Organization | | | | + + + + + | [facility] | [address] | [place] [address] | | | PATHOLOGY | [address] | | | + + + + + | [facility] | [address] | [place] [address] | | | PATHOLOGY | [address] | | | + + + + + PHOSPHORUS, PLASMA (11/24/2008 7:05 AM PDT) + +-------+ + + + | Component | Value | Ref Range | Performed | Pathologist | | | | | At | Signature | + +-------+ + + + | PHOSPHORUS, | 3.0 | 2.4 - 4.7 mg/dL | [facility] | | | PLASMA | | | DEPARTMENT | | | (LAB) | | | OF | | | | | | PATHOLOGY | | + +-------+ + + + + + | Specimen | + + | Blood - Blood | + + + + + + + | Performing | Address | City/State/Zipcode | Phone Number | | Organization | | | | + + + + + | [facility] DEPARTMENT [facility] | [address] | [place] [address] | | | PATHOLOGY | [address] | | | + + + + + | [facility] DEPARTMENT [facility] | [address] | [place] [address] | | | PATHOLOGY | [address] | | | + + + + + CBC ONLY (11/23/2008 6:00 AM PDT) + + + + + + | Component | Value | Ref Range | Performed | Pathologist | | | | | At | Signature | + + + + + + | WHITE CELL | 13.5 (H) | 4.4 - 11.0 K/cu | [facility] | | | COUNT | | mm | DEPARTMENT | | | | | | OF | | | | | | PATHOLOGY | | + + + + + + | RED CELL | 2.73 (L) | 4.00 - 5.20 | [facility] | | | COUNT | | M/cu mm | DEPARTMENT | | | | | | OF | | | | | | PATHOLOGY | | + + + + + + | HEMOGLOBIN | 7.8 (L) | 12.0 - 16.0 | [facility] | | | | | g/dL | DEPARTMENT | | | | | | OF | | | | | | PATHOLOGY | | + + + + + + | HEMATOCRIT | 23.9 (L) | 36.0 - 46.0 % | [facility] | | | | | | DEPARTMENT | | | | | | OF | | | | | | PATHOLOGY | | + + + + + + | MCV | 87.5 | 80.0 - 96.0 fL | [facility] | | | | | | DEPARTMENT | | | | | | OF | | | | | | PATHOLOGY | | + + + + + + | MCHC | 32.7 (L) | 33.4 - 35.5 | [facility] | | | | | g/dL | DEPARTMENT | | | | | | OF | | | | | | PATHOLOGY | | + + + + + + | RDW | 16.6 (H) | 11.5 - 15.0 % | [facility] | | | | | | DEPARTMENT | | | | | | OF | | | | | | PATHOLOGY | | + + + + + + | PLATELET | 713 (H) | 150 - 400 K/cu | [facility] | | | COUNT | | mm | DEPARTMENT | | | | | | OF | | | | | | PATHOLOGY | | + + + + + + + + | Specimen | + + | Blood - Blood | + + + + + + + | Performing | Address | City/State/Zipcode | Phone Number | | Organization | | | | + + + + + | [facility]MENT [facility] | [address] | [place] [address] | | | PATHOLOGY | [address] | | | + + + + + | [facility] | [address] | [place] [address] | | | PATHOLOGY | [address] | | | + + + + + MAGNESIUM, PLASMA (11/23/2008 6:00 AM PDT) + +-------+ + + + | Component | Value | Ref Range | Performed | Pathologist | | | | | At | Signature | + +-------+ + + + | MAGNESIUM,P | 2.3 | 1.8 - 2.5 mg/dL | [facility] | | | LASMA | | | DEPARTMENT | | | | | | OF | | | | | | PATHOLOGY | | + +-------+ + + + + + | Specimen | + + | Blood - Blood | + + + + + + + | Performing | Address | City/State/Zipcode | Phone Number | | Organization | | | | + + + + + | [facility] | [address] | [place] [address] | | | PATHOLOGY | [address] | | | + + + + + | [facility] | [facility] | [place] [address] | | | PATHOLOGY | [address] | | | + + + + + PHOSPHORUS, PLASMA (11/23/2008 6:00 AM PDT) + +-------+ + + + | Component | Value | Ref Range | Performed | Pathologist | | | | | At | Signature | + +-------+ + + + | PHOSPHORUS, | 4.2 | 2.4 - 4.7 mg/dL | [facility] | | | PLASMA | | | DEPARTMENT | | | (LAB) | | | OF | | | | | | PATHOLOGY | | + +-------+ + + + + + | Specimen | + + | Blood - Blood | + + + + + + + | Performing | Address | City/State/Zipcode | Phone Number | | Organization | | | | + + + + + | [facility] DEPARTMENT [facility] | [address] | [place] [address] | | | PATHOLOGY | [address] | | | + + + + + | [facility] | [address] | [place] [address] | | | PATHOLOGY | [address] | | | + + + + + BASIC METABOLIC SET (NA, K, CL, TCO2, BUN, CR, GLU, CA) (11/23/2008 6:00 AM PDT) + +---------+ + + + | Component | Value | Ref Range | Performed | Pathologist | | | | | At | Signature | + +---------+ + + + | GLUCOSE, | 161 (H) | 60 - 99 mg/dL | [facility] | | | PLASMA | | | DEPARTMENT | | | (LAB) | | | OF | | | | | | PATHOLOGY | | + +---------+ + + + | BUN, PLASMA | 7 | 6 - 20 mg/dL | [facility] | | | (LAB) | | | DEPARTMENT | | | | | | OF | | | | | | PATHOLOGY | | + +---------+ + + + | CREATININE | 0.80 | 0.60 - 1.10 | [facility] | | | PLASMA | | mg/dL | DEPARTMENT | | | (LAB) | | | OF | | | | | | PATHOLOGY | | + +---------+ + + + | SODIUM, | 140 | 134 - 143 | [facility] | | | PLASMA | | mmol/L | DEPARTMENT | | | (LAB) | | | OF | | | | | | PATHOLOGY | | + +---------+ + + + | POTASSIUM, | 4.3 | 3.4 - 5.0 | [facility] | | | PLASMA | | mmol/L | DEPARTMENT | | | (LAB) | | | OF | | | | | | PATHOLOGY | | + +---------+ + + + | CHLORIDE, | 106 | 97 - 108 mmol/L | [facility] | | | PLASMA | | | DEPARTMENT | | | (LAB) | | | OF | | | | | | PATHOLOGY | | + +---------+ + + + | CALCIUM, | 8.5 (L) | 8.6 - 10.2 | [facility] | | | PLASMA | | mg/dL | DEPARTMENT | | | (LAB) | | | OF | | | | | | PATHOLOGY | | + +---------+ + + + | TOTAL CO2, | 30 | 23 - 31 mmol/L | [facility] | | | PLASMA | | | DEPARTMENT | | | (LAB) | | | OF | | | | | | PATHOLOGY | | + +---------+ + + + + + | Specimen | + + | Blood - Blood | + + + + + + + | Performing | Address | City/State/Zipcode | Phone Number | | Organization | | | | + + + + + | [facility] | [address] | [place] [address] | | | PATHOLOGY | [address] | | | + + + + + | [facility] | [address] | [place] [address] | | | PATHOLOGY | [address] | | | + + + + + TYPE AND SCREEN (11/22/2008 8:10 AM PDT) + + + + + + | Component | Value | Ref Range | Performed | Pathologist | | | | | At | Signature | + + + + + + | ABO GROUP | A | | [facility] | | | | | | DEPARTMENT | | | | | | OF | | | | | | PATHOLOGY | | + + + + + + | RH TYPE | Positive | | [facility] | | | | | | DEPARTMENT | | | | | | OF | | | | | | PATHOLOGY | | + + + + + + | Antibody | Negative | | [facility] | | | Screen | | | DEPARTMENT | | | | | | OF | | | | | | PATHOLOGY | | + + + + + + + + | Specimen | + + | Blood - Blood | + + + + + + + | Performing | Address | City/State/Zipcode | Phone Number | | Organization | | | | + + + + + | [facility] | [address] | [place] [address] | | | PATHOLOGY | [address] | | | + + + + + | [facility] | [facility] | [place] [address] | | | PATHOLOGY | [address] | | | + + + + + PRODUCT- RED CELLS LEUKOREDUCED (11/22/2008 7:55 AM PDT) + + + + + + | Component | Value | Ref Range | Performed | Pathologist | | | | | At | Signature | + + + + + + | PRODUCT | -1 RED BLOOD | | [facility] | | | DESCRIPTION | CELLS,ADENINE-SALINE | | DEPARTMENT | | | | ADDED,LEUKOCYTES REDUCED | | OF | | | | | | PATHOLOGY | | + + + + + + | PRODUCT | [id number] | | [facility] | | | UNIT # | | | DEPARTMENT | | | | | | OF | | | | | | PATHOLOGY | | + + + + + + | UNIT ABO | A | | [facility] | | | | | | DEPARTMENT | | | | | | OF | | | | | | PATHOLOGY | | + + + + + + | UNIT RH | POS | | [facility] | | | | | | DEPARTMENT | | | | | | OF | | | | | | PATHOLOGY | | + + + + + + | STATUS OF | Returned to Blood Bank | | [facility] | | | UNIT | | | DEPARTMENT | | | | | | OF | | | | | | PATHOLOGY | | + + + + + + + + | Specimen | + + | | + + + + + + + | Performing | Address | City/State/Zipcode | Phone Number | | Organization | | | | + + + + + | [facility] | [address] [place] [address] | [place] [address] | | | PATHOLOGY | [address] | | | + + + + + | [facility] | [address] [place] [address] | [place] [address] | | | PATHOLOGY | [address] | | | + + + + + PRODUCT- RED CELLS LEUKOREDUCED (11/22/2008 7:55 AM PDT) + + + + + + | Component | Value | Ref Range | Performed | Pathologist | | | | | At | Signature | + + + + + + | PRODUCT | -1 RED BLOOD | | [facility] | | | DESCRIPTION | CELLS,ADENINE-SALINE | | DEPARTMENT | | | | ADDED,LEUKOCYTES REDUCED | | OF | | | | | | PATHOLOGY | | + + + + + + | PRODUCT | [id number] | | [facility] | | | UNIT # | | | DEPARTMENT | | | | | | OF | | | | | | PATHOLOGY | | + + + + + + | UNIT ABO | A | | [facility] | | | | | | DEPARTMENT | | | | | | OF | | | | | | PATHOLOGY | | + + + + + + | UNIT RH | POS | | [facility] | | | | | | DEPARTMENT | | | | | | OF | | | | | | PATHOLOGY | | + + + + + + | STATUS OF | Returned to Blood Bank | | [facility] | | | UNIT | | | DEPARTMENT | | | | | | OF | | | | | | PATHOLOGY | | + + + + + + + + | Specimen | + + | | + + + + + + + | Performing | Address | City/State/Zipcode | Phone Number | | Organization | | | | + + + + + | [facility] | [address] | [place] [address] | | | PATHOLOGY | [address] | | | + + + + + | [facility] | [address] | [place] [address] | | | PATHOLOGY | [address] | | | + + + + + PRODUCT- RED CELLS LEUKOREDUCED (11/22/2008 7:55 AM PDT) + + + + + + | Component | Value | Ref Range | Performed | Pathologist | | | | | At | Signature | + + + + + + | PRODUCT | -1 RED BLOOD | | [facility] | | | DESCRIPTION | CELLS,ADENINE-SALINE | | DEPARTMENT | | | | ADDED,LEUKOCYTES REDUCED | | OF | | | | | | PATHOLOGY | | + + + + + + | PRODUCT | [id number] | | [facility] | | | UNIT # | | | DEPARTMENT | | | | | | OF | | | | | | PATHOLOGY | | + + + + + + | UNIT ABO | A | | [facility] | | | | | | DEPARTMENT | | | | | | OF | | | | | | PATHOLOGY | | + + + + + + | UNIT RH | POS | | [facility] | | | | | | DEPARTMENT | | | | | | OF | | | | | | PATHOLOGY | | + + + + + + | STATUS OF | Returned to Blood Bank | | [facility] | | | UNIT | | | DEPARTMENT | | | | | | OF | | | | | | PATHOLOGY | | + + + + + + + + | Specimen | + + | | + + + + + + + | Performing | Address | City/State/Zipcode | Phone Number | | Organization | | | | + + + + + | [facility] | [id number] | [place] [address] | | | PATHOLOGY | [address] | | | + + + + + | [facility] | [address] | [place] [address] | | | PATHOLOGY | [address] | | | + + + + + PRODUCT- RED CELLS LEUKOREDUCED (11/22/2008 7:55 AM PDT) + + + + + + | Component | Value | Ref Range | Performed | Pathologist | | | | | At | Signature | + + + + + + | PRODUCT | -1 RED BLOOD | | [facility] | | | DESCRIPTION | CELLS,ADENINE-SALINE | | DEPARTMENT | | | | ADDED,LEUKOCYTES REDUCED | | OF | | | | | | PATHOLOGY | | + + + + + + | PRODUCT | [id number] | | [facility] | | | UNIT # | | | DEPARTMENT | | | | | | OF | | | | | | PATHOLOGY | | + + + + + + | UNIT ABO | A | | [facility] | | | | | | DEPARTMENT | | | | | | OF | | | | | | PATHOLOGY | | + + + + + + | UNIT RH | POS | | [facility] | | | | | | DEPARTMENT | | | | | | OF | | | | | | PATHOLOGY | | + + + + + + | STATUS OF | Returned to Blood Bank | | [facility] | | | UNIT | | | DEPARTMENT | | | | | | OF | | | | | | PATHOLOGY | | + + + + + + + + | Specimen | + + | | + + + + + + + | Performing | Address | City/State/Zipcode | Phone Number | | Organization | | | | + + + + + | [facility] | [address] | [place] [address] | | | PATHOLOGY | [address] | | | + + + + + | [facility] | [address] | [place] [address] | | | PATHOLOGY | [address] | | | + + + + + CBC ONLY (11/22/2008 4:30 AM PDT) + + + + + + | Component | Value | Ref Range | Performed | Pathologist | | | | | At | Signature | + + + + + + | WHITE CELL | 20.2 (H) | 4.4 - 11.0 K/cu | [facility] | | | COUNT | | mm | DEPARTMENT | | | | | | OF | | | | | | PATHOLOGY | | + + + + + + | RED CELL | 2.80 (L) | 4.00 - 5.20 | [facility] | | | COUNT | | M/cu mm | DEPARTMENT | | | | | | OF | | | | | | PATHOLOGY | | + + + + + + | HEMOGLOBIN | 8.2 (L) | 12.0 - 16.0 | [facility] | | | | | g/dL | DEPARTMENT | | | | | | OF | | | | | | PATHOLOGY | | + + + + + + | HEMATOCRIT | 24.6 (L) | 36.0 - 46.0 % | [facility] | | | | | | DEPARTMENT | | | | | | OF | | | | | | PATHOLOGY | | + + + + + + | MCV | 87.7 | 80.0 - 96.0 fL | [facility] | | | | | | DEPARTMENT | | | | | | OF | | | | | | PATHOLOGY | | + + + + + + | MCHC | 33.5 | 33.4 - 35.5 | [facility] | | | | | g/dL | DEPARTMENT | | | | | | OF | | | | | | PATHOLOGY | | + + + + + + | RDW | 16.7 (H) | 11.5 - 15.0 % | [facility] | | | | | | DEPARTMENT | | | | | | OF | | | | | | PATHOLOGY | | + + + + + + | PLATELET | 631 (H) | 150 - 400 K/cu | [facility] | | | COUNT | | mm | DEPARTMENT | | | | | | OF | | | | | | PATHOLOGY | | + + + + + + + + | Specimen | + + | Blood - Blood | + + + + + + + | Performing | Address | City/State/Zipcode | Phone Number | | Organization | | | | + + + + + | [facility] | [address] | [place] [address] | | | PATHOLOGY | [address] | | | + + + + + | [facility] | [address] | [place] [address] | | | PATHOLOGY | [address] | | | + + + + + MAGNESIUM, PLASMA (11/22/2008 4:30 AM PDT) + +-------+ + + + | Component | Value | Ref Range | Performed | Pathologist | | | | | At | Signature | + +-------+ + + + | MAGNESIUM,P | 2.2 | 1.8 - 2.5 mg/dL | [facility] | | | LASMA | | | DEPARTMENT | | | | | | OF | | | | | | PATHOLOGY | | + +-------+ + + + + + | Specimen | + + | Blood - Blood | + + + + + + + | Performing | Address | City/State/Zipcode | Phone Number | | Organization | | | | + + + + + | [facility] | [address] | [place] [address] | | | PATHOLOGY | [address] | | | + + + + + | [facility] | [address] | [place] [address] | | | PATHOLOGY | [address] | | | + + + + + BASIC METABOLIC SET (NA, K, CL, TCO2, BUN, CR, GLU, CA) (11/22/2008 4:30 AM PDT) + +---------+ + + + | Component | Value | Ref Range | Performed | Pathologist | | | | | At | Signature | + +---------+ + + + | GLUCOSE, | 152 (H) | 60 - 99 mg/dL | [facility] | | | PLASMA | | | DEPARTMENT | | | (LAB) | | | OF | | | | | | PATHOLOGY | | + +---------+ + + + | BUN, PLASMA | 6 | 6 - 20 mg/dL | [facility] | | | (LAB) | | | DEPARTMENT | | | | | | OF | | | | | | PATHOLOGY | | + +---------+ + + + | CREATININE | 0.65 | 0.60 - 1.10 | [facility] | | | PLASMA | | mg/dL | DEPARTMENT | | | (LAB) | | | OF | | | | | | PATHOLOGY | | + +---------+ + + + | SODIUM, | 138 | 134 - 143 | [facility] | | | PLASMA | | mmol/L | DEPARTMENT | | | (LAB) | | | OF | | | | | | PATHOLOGY | | + +---------+ + + + | POTASSIUM, | 4.2 | 3.4 - 5.0 | [facility] | | | PLASMA | | mmol/L | DEPARTMENT | | | (LAB) | | | OF | | | | | | PATHOLOGY | | + +---------+ + + + | CHLORIDE, | 105 | 97 - 108 mmol/L | [facility] | | | PLASMA | | | DEPARTMENT | | | (LAB) | | | OF | | | | | | PATHOLOGY | | + +---------+ + + + | CALCIUM, | 8.5 (L) | 8.6 - 10.2 | [facility] | | | PLASMA | | mg/dL | DEPARTMENT | | | (LAB) | | | OF | | | | | | PATHOLOGY | | + +---------+ + + + | TOTAL CO2, | 28 | 23 - 31 mmol/L | [facility] | | | PLASMA | | | DEPARTMENT | | | (LAB) | | | OF | | | | | | PATHOLOGY | | + +---------+ + + + + + | Specimen | + + | Blood - Blood | + + + + + + + | Performing | Address | City/State/Zipcode | Phone Number | | Organization | | | | + + + + + | [facility] | [address] | [place] [address] | | | PATHOLOGY | [address] | | | + + + + + | [facility] | [address] | [place] [address] | | | PATHOLOGY | [address] | | | + + + + + PHOSPHORUS, PLASMA (11/22/2008 4:30 AM PDT) + +-------+ + + + | Component | Value | Ref Range | Performed | Pathologist | | | | | At | Signature | + +-------+ + + + | PHOSPHORUS, | 4.3 | 2.4 - 4.7 mg/dL | [facility] | | | PLASMA | | | DEPARTMENT | | | (LAB) | | | OF | | | | | | PATHOLOGY | | + +-------+ + + + + + | Specimen | + + | Blood - Blood | + + + + + + + | Performing | Address | City/State/Zipcode | Phone Number | | Organization | | | | + + + + + | [facility] | [address] | [place] [address] | | | PATHOLOGY | [address] | | | + + + + + | [facility] | [address] | [place] [address] | | | PATHOLOGY | [address] | | | + + + + + OPERATION RECORD (11/22/2008 12:00 AM PDT) + + + | Narrative | Performed At | + + + | [id number] | | | [id number] | | | [id number] [address] | | | [place] [id number] | | | Date: 11/23/2008 Attending | | | Surgeon: Avery Lee M.D. | | | Governor Assembler(s): Preoperative Diagnosis(es): Submucous uterine | | | leiomyoma with prolapse. Postoperative Diagnosis(es): | | | Submucous uterine leiomyoma with prolapse. Procedures | | | Performed: Myomectomy, vaginal. Anesthesia: General. | | | Indications: Kelly Mcclellan is a 53-year-old woman who presented to | | | the Vascular Surgery Service with a atherothrombotic traumatic | | | event that resulted in thrombus. She was noted instantly to have a | | | submucous myoma that has prolapsed into the cervix. We brought | | | her to the operating room today to manage this after stopping | | | anticoagulation. Findings: A large 10 cm myoma was present | | | with most of it in the vagina with the cervix dilated. This was | | | removed satisfactorily. Procedure: The patient was taken to | | | the operating room with an IV running. She was placed supine for | | | induction of anesthesia and prepped and draped in the usual | | | sterile fashion in high lithotomy. The fibroid was identified and | | | by placing a weighted speculum in a [place], the cervix could be | | | seen. The uterus otherwise was fairly small. Most of the | | | fibroid was in the vagina. We went up to the upper portion of the | | | cervix. We were able to see the area with a broad base | | | connection was to the fundus. We infiltrated this with | | | vasopressin solution, approximately 4 units of vasopressin, and then | | | used the Bovie on the cutting setting to go through the capsule of | | | the fibroid. The fibroid was then dissected free using blunt | | | dissection and then a bolster in its base by twisting. The fibroid | | | base was identified by looking through the cervix and | | | fulgurated. The stitches were placed through the cervix to | | | control hemostasis in the posterior aspect where the attachment was | | | most direct. I also then packed the uterine cavity with Gelfoam | | | as we continued to have some oozing. At the conclusion of the | | | case, the area was completely hemostatic at closure. Following | | | this, instruments were removed, the bladder was drained, the patient | | | was extubated, reversed from anesthesia, and went to recovery room | | | in excellent condition. Total operative blood loss was 120 cc. | | | Avery Lee M.D. SUPRIYA / VONNIE [id number] / [id number] / | | | [id number] / | | + + + + + | Procedure Note | + + | Avery Lee MD - 11/23/2008 12:00 AM PDT [id number] | | [id number] [address] | | [id number] Date: 11/23/2008 Attending Surgeon: Avery | | Juan Lee M.D. Governor Assembler(s): Preoperative Diagnosis(es):Submucous uterine leiomyoma | | with prolapse. Postoperative Diagnosis(es):Submucous uterine leiomyoma with prolapse. | | Procedures Performed:Myomectomy, vaginal. Anesthesia:General. Indications:Kelly | | Eleuterio is a 53-year-old woman who presented to the Vascular SurgeryService with a | | atherothrombotic traumatic event that resulted in thrombus.She was noted instantly to | | have a submucous myoma that has prolapsed intothe cervix. We brought her to the | | operating room today to manage thisafter stopping anticoagulation. Findings:A large 10 | | cm myoma was present with most of it in the vagina with thecervix dilated. This was | | removed satisfactorily. Procedure:The patient was taken to the operating room with an | | IV running. She wasplaced supine for induction of anesthesia and prepped and draped in | | the usualsterile fashion in high lithotomy. The fibroid was identified and byplacing a | | weighted speculum in a Eva, the cervix could be seen. Theuterus otherwise was | | fairly small. Most of the fibroid was in the vagina.We went up to the upper portion of | | the cervix. We were able to see thearea with a broad base connection was to the fundus. | | We infiltrated thiswith vasopressin solution, approximately 4 units of vasopressin, | | and thenused the Bovie on the cutting setting to go through the capsule of thefibroid. | | The fibroid was then dissected free using blunt dissection andthen a bolster in its base | | by twisting. The fibroid base was identified bylooking through the cervix and | | fulgurated. The stitches were placedthrough the cervix to control hemostasis in the | | posterior aspect where theattachment was most direct. I also then packed the uterine | | cavity withGelfoam as we continued to have some oozing. At the conclusion of thecase, | | the area was completely hemostatic at closure. Following this,instruments were removed, | | the bladder was drained, the patient wasextubated, reversed from anesthesia, and went | | to recovery room in excellentcondition. Total operative blood loss was 120 cc. | | Avery Lee M.D.SUPRIYA / [id number] / [id number] / [id number] / T: 11/24/2008 | | | |Indications: | |Kelly Mcclellan is a 53-year-old woman who presented to the Vascular Surgery | |Service with a atherothrombotic traumatic event that resulted in thrombus. | |She was noted instantly to have a submucous myoma that has prolapsed into | |the cervix. We brought her to the operating room today to manage this | |after stopping anticoagulation. | | | | | |Findings: | |A large 10 cm myoma was present with most of it in the vagina with the | |cervix dilated. This was removed satisfactorily. | | | | | |Procedure: | |The patient was taken to the operating room with an IV running. She was | |placed supine for induction of anesthesia and prepped and draped in the usual | |sterile fashion in high lithotomy. The fibroid was identified and by | |placing a weighted speculum in a Eva, the cervix could be seen. The | |uterus otherwise was fairly small. Most of the fibroid was in the vagina. | |We went up to the upper portion of the cervix. We were able to see the | |area with a broad base connection was to the fundus. We infiltrated this | |with vasopressin solution, approximately 4 units of vasopressin, and then | |used the Bovie on the cutting setting to go through the capsule of the | |fibroid. The fibroid was then dissected free using blunt dissection and | |then a bolster in its base by twisting. The fibroid base was identified by | |looking through the cervix and fulgurated. The stitches were placed | |through the cervix to control hemostasis in the posterior aspect where the | |attachment was most direct. I also then packed the uterine cavity with | |Gelfoam as we continued to have some oozing. At the conclusion of the | |case, the area was completely hemostatic at closure. Following this, | |instruments were removed, the bladder was drained, the patient was | |extubated, reversed from anesthesia, and went to recovery room in excellent | |condition. Total operative blood loss was 120 cc. | | | | | | | | | |Avery Lee M.D. | |JTJ / HS | |[id number] / [id number] / [id number] / | | | | | | | | | | | | | | | | | | | | | + + OPERATION RECORD (11/22/2008 12:00 AM PDT) + + + | Narrative | Performed At | + + + | [id number] | | | [id number] | | | [id number] [address] | | | [address] [id number] | | | Date: 11/21/2008 Attending | | | Surgeon: Jhon Cabello M.D. | | | Governor Assembler(s): Misbah Benton | | | Aguilar Preoperative Diagnosis(es): Left hand necrotic | | | fingers of the index, middle, ring, and small. Postoperative | | | Diagnosis(es): Left hand necrotic fingers of the index, middle, ring, | | | and small. Indications: Ms. Mcclellan is a 53-year-old female | | | who was bitten in the forearm by horse approximately 2 weeks | | | ago. She did not seek immediate medical attention and ultimately | | | presented to the Vascular Surgery Service with decreased vascular | | | blood supply to her distal fingers with a bluish hue. It was felt | | | that she was growing emboli distally, and therefore, was necrosing | | | off her distal fingers, and correct action was taken by Vascular | | | Surgery Service. The Orthopedic Hand Surgery Service was involved | | | additionally for a decompressive fasciotomies of her palm after | | | revascularization and ultimately now for definitive management of | | | her necrotic fingers. Procedures Performed: Incision and | | | debridement of her left hand with amputation through the middle | | | phalanx of her index, middle, ring, and small finger, | | | ( ) as well as loose closure of her palmar | | | fasciotomies. Procedure: The patient was then identified in | | | the preoperative area and brought back to the operating | | | room. She was sedated and intubated. After a pause, the arm | | | was prepped, and draped and a series of lines were drawn to assess | | | the best place for amputation of her fingers. Ultimately, she had | | | amputations necessary on her index, middle, ring, and small | | | fingers. Starting with the index finger, the dorsum skin was | | | divided in a fishmouth fashion as well as the volar skin back to | | | lateral bleeding tissue. Once performed, the inner vascular | | | bundles were identified and transected, and the bone was transected | | | utilizing a TPS oscillating saw. This was then closed utilizing | | | 3-0 nylon additionally. Attention was then turned towards her | | | long finger, and similar to her index, #15 blade was used to dissect | | | down at the division of the healthy bleeding viable tissue and | | | necrotic tissue. Neurovascular bundles were identified, and | | | under distraction, amputated with Metzenbaum scissors. This was | | | then closed with 3-0 nylon around the amputated bone which had been | | | performed with oscillating TPS saw. Ring finger, attention was | | | then turned toward that finger. Again, along the division of the | | | necrotic and the viable healthy tissue, #15 blade was taken down | | | to bone. The neurovascular bundles were identified and transected | | | using Metzenbaum scissors under stretch, and using TPS saw, the | | | middle phalanx was transected distal to the ( ) FDS | | | insertion. Attention was finally turned toward the small finger | | | where it was more necrotic, and there was a small fluid blister | | | underneath the skin. This was irrigated and cleaned, and again, | | | utilizing #15 blade, taken down to bone. Neurovascular bundles | | | were identified, transected with Metzenbaum scissors, and the | | | middle phalanx was transected utilizing oscillating saw. This | | | was irrigated and then closed utilizing 3-0 nylon. Attention was | | | then turned to the palmar fasciotomies which were then irrigated | | | utilizing Bovie irrigation and closed loosely with 2-0 nylons. | | | At the conclusion of the procedure, all the surgical incisions were | | | pink and viable and bleeding. There was some concern that she | | | might require further amputation or possible resection on her small | | | finger site secondary to the extensive damage. Dr. Ferreira | | | Destiney was present and scrubbed for the duration of the procedure. | | | Misbah Benton M.D. Jhon Cabello M.D. | | | GDB / HS [id number] / [id number] / [id number] / T: | | | 12/04/2008 | | + + + + + | Procedure Note | + + | Misbah Benton MD - 11/21/2008 12:00 AM PDT [id number] | | [id number] [address] [place] | | [id number] Date: 11/21/2008 Attending Surgeon: | | Jhon Cabello M.D. Governor Assembler(s): Misbah Benton M.D. | | Preoperative Diagnosis(es):Left hand necrotic fingers of the index, middle, ring, and | | small. Postoperative Diagnosis(es):Left hand necrotic fingers of the index, middle, | | ring, and small. Indications:Ms. Mcclellan is a 53-year-old female who was bitten in the | | forearm by horseapproximately 2 weeks ago. She did not seek immediate medical | | attentionand ultimately presented to the Vascular Surgery Service with decreasedvascular | | blood supply to her distal fingers with a bluish hue. It was feltthat she was growing | | emboli distally, and therefore, was necrosing off herdistal fingers, and correct action | | was taken by Vascular Surgery Service.The Orthopedic Hand Surgery Service was involved | | additionally for adecompressive fasciotomies of her palm after revascularization | | andultimately now for definitive management of her necrotic fingers. Procedures | | Performed:Incision and debridement of her left hand with amputation through themiddle | | phalanx of her index, middle, ring, and small finger,( ) as well as loose | | closure of her palmar fasciotomies. Procedure:The patient was then identified in the | | preoperative area and brought backto the operating room. She was sedated and intubated. | | After a pause, thearm was prepped, and draped and a series of lines were drawn to | | assess thebest place for amputation of her fingers. Ultimately, she had | | amputationsnecessary on her index, middle, ring, and small fingers. Starting with | | theindex finger, the dorsum skin was divided in a fishmouth fashion as well asthe volar | | skin back to lateral bleeding tissue. Once performed, the innervascular bundles were | | identified and transected, and the bone wastransected utilizing a TPS oscillating saw. | | This was then closed utilizing3-0 nylon additionally. Attention was then turned towards | | her long finger,and similar to her index, #15 blade was used to dissect down at | | thedivision of the healthy bleeding viable tissue and necrotic tissue.Neurovascular | | bundles were identified, and under distraction, amputatedwith Metzenbaum scissors. | | This was then closed with 3-0 nylon around theamputated bone which had been performed | | with oscillating TPS saw. Ringfinger, attention was then turned toward that finger. | | Again, along thedivision of the necrotic and the viable healthy tissue, #15 blade was | | takendown to bone. The neurovascular bundles were identified and transectedusing | | Metzenbaum scissors under stretch, and using TPS saw, the middlephalanx was transected | | distal to the ( ) FDS insertion. Attention was finally turned toward the | | small finger where it was morenecrotic, and there was a small fluid blister underneath | | the skin. Thiswas irrigated and cleaned, and again, utilizing #15 blade, taken down | | tobone. Neurovascular bundles were identified, transected with Metzenbaumscissors, and | | the middle phalanx was transected utilizing oscillating saw. This was irrigated and | | then closed utilizing 3-0 nylon. Attention was thenturned to the palmar fasciotomies | | which were then irrigated utilizing Bovieirrigation and closed loosely with 2-0 nylons. | | At the conclusion of the procedure, all the surgical incisions were pinkand viable and | | bleeding. There was some concern that she might requirefurther amputation or possible | | resection on her small finger site secondaryto the extensive damage. Dr. Jhon Cabello | | was present and scrubbed for the duration of theprocedure. Misbah Benton M.D. | | Jhon Cabello M.D. DANA / [id number] / [id number] / [id number] / T: 12/04/2008 | | | |necessary on her index, middle, ring, and small fingers. Starting with the | |index finger, the dorsum skin was divided in a fishmouth fashion as well as | |the volar skin back to lateral bleeding tissue. Once performed, the inner | |vascular bundles were identified and transected, and the bone was | |transected utilizing a TPS oscillating saw. This was then closed utilizing | |3-0 nylon additionally. Attention was then turned towards her long finger, | |and similar to her index, #15 blade was used to dissect down at the | |division of the healthy bleeding viable tissue and necrotic tissue. | |Neurovascular bundles were identified, and under distraction, amputated | |with Metzenbaum scissors. This was then closed with 3-0 nylon around the | |amputated bone which had been performed with oscillating TPS saw. Ring | |finger, attention was then turned toward that finger. Again, along the | |division of the necrotic and the viable healthy tissue, #15 blade was taken | |down to bone. The neurovascular bundles were identified and transected | |using Metzenbaum scissors under stretch, and using TPS saw, the middle | |phalanx was transected distal to the ( ) FDS insertion. | | | | | |Attention was finally turned toward the small finger where it was more | |necrotic, and there was a small fluid blister underneath the skin. This | |was irrigated and cleaned, and again, utilizing #15 blade, taken down to | |bone. Neurovascular bundles were identified, transected with Metzenbaum | |scissors, and the middle phalanx was transected utilizing oscillating saw. | | | | | |This was irrigated and then closed utilizing 3-0 nylon. Attention was then | |turned to the palmar fasciotomies which were then irrigated utilizing Bovie | |irrigation and closed loosely with 2-0 nylons. | | | | | |At the conclusion of the procedure, all the surgical incisions were pink | |and viable and bleeding. There was some concern that she might require | |further amputation or possible resection on her small finger site secondary | |to the extensive damage. | | | | | |Dr. Jhon Cabello was present and scrubbed for the duration of the | |procedure. | | | | | | | | | |Misbah Benton M.D. | | | | | | | | | |Jhon Cabello M.D. | | | | | |GDB / HS | |[id number] / [id number] / [id number] / | | | | | | | | | | | | | | | | | | | | | + + CULTURE, WOUND BACTI & GS (11/21/2008 12:05 PM PDT) + + + + + + | Component | Value | Ref Range | Performed | Pathologist | | | | | At | Signature | + + + + + + | SOURCE BODY | Left little finger | | | | | SITE | Surgical | | | | + + + + + + | CULTURE | Wound Culture | | | | | RESULT | | | | | | | Source...............: | | | | | | Left little finger | | | | | | Surgical RLB Gram | | | | | | Stain...........: Few | | | | | | Squamous epithelial | | | | | | cells | | | | | | | | | | | | | | | | | | Few PMN's | | | | | | | | | | | | | | | | | | No organisms | | | | | | seen. Culture: | | | | | | Final Report: No | | | | | | growth after 3 days. | | | | | | No anaerobes | | | | | | isolated Final | | | | | | Report | | | | | | Resulted: / | | | | | | 24/11 | | | | | | [facility]LB | | | | | | ([facility]) | | | | | | [address] | | | | | | [address] | | | | | | [address] [address] | | | | | | [employer] | | | | | | [place] | | | | | | , [place] [address] | | | | + + + + + + + + | Specimen | + + | | + + + + + + + | Performing | Address | City/State/Zipcode | Phone Number | | Organization | | | | + + + + + | [facility] | [address] | [place] [address] | | | PATHOLOGY | [address] | | | + + + + + PRODUCT- RED CELLS LEUKOREDUCED (11/21/2008 10:01 AM PDT) + + + + + + | Component | Value | Ref Range | Performed | Pathologist | | | | | At | Signature | + + + + + + | PRODUCT | -1 RED BLOOD | | [facility] | | | DESCRIPTION | CELLS,ADENINE-SALINE | | DEPARTMENT | | | | ADDED,LEUKOCYTES REDUCED | | OF | | | | | | PATHOLOGY | | + + + + + + | PRODUCT | [id number] | | [facility] | | | UNIT # | | | DEPARTMENT | | | | | | OF | | | | | | PATHOLOGY | | + + + + + + | UNIT ABO | A | | [facility] | | | | | | DEPARTMENT | | | | | | OF | | | | | | PATHOLOGY | | + + + + + + | UNIT RH | POS | | [facility] | | | | | | DEPARTMENT | | | | | | OF | | | | | | PATHOLOGY | | + + + + + + | STATUS OF | Returned to Blood Bank | | [facility] | | | UNIT | | | DEPARTMENT | | | | | | OF | | | | | | PATHOLOGY | | + + + + + + + + | Specimen | + + | | + + + + + + + | Performing | Address | City/State/Zipcode | Phone Number | | Organization | | | | + + + + + | [facility] | [address] | [place] [address] | | | PATHOLOGY | [address] | | | + + + + + | [facility] | [facility] | [place] [address] | | | PATHOLOGY | [address] | | | + + + + + PRODUCT- RED CELLS LEUKOREDUCED (11/21/2008 10:01 AM PDT) + + + + + + | Component | Value | Ref Range | Performed | Pathologist | | | | | At | Signature | + + + + + + | PRODUCT | -1 RED BLOOD | | [facility] | | | DESCRIPTION | CELLS,ADENINE-SALINE | | DEPARTMENT | | | | ADDED,LEUKOCYTES REDUCED | | OF | | | | | | PATHOLOGY | | + + + + + + | PRODUCT | [id number] | | [facility] | | | UNIT # | | | DEPARTMENT | | | | | | OF | | | | | | PATHOLOGY | | + + + + + + | UNIT ABO | A | | [facility] | | | | | | DEPARTMENT | | | | | | OF | | | | | | PATHOLOGY | | + + + + + + | UNIT RH | POS | | [facility] | | | | | | DEPARTMENT | | | | | | OF | | | | | | PATHOLOGY | | + + + + + + | STATUS OF | Returned to Blood Bank | | [facility] | | | UNIT | | | DEPARTMENT | | | | | | OF | | | | | | PATHOLOGY | | + + + + + + + + | Specimen | + + | | + + + + + + + | Performing | Address | City/State/Zipcode | Phone Number | | Organization | | | | + + + + + | [facility] | [address] | [place] [address] | | | PATHOLOGY | [address] | | | + + + + + | [facility] | [address] | [place] [address] | | | PATHOLOGY | [address] | | | + + + + + TYPE AND SCREEN (11/21/2008 9:35 AM PDT) + + + + + + | Component | Value | Ref Range | Performed | Pathologist | | | | | At | Signature | + + + + + + | ABO GROUP | A | | [facility] | | | | | | DEPARTMENT | | | | | | OF | | | | | | PATHOLOGY | | + + + + + + | RH TYPE | Positive | | [facility] | | | | | | DEPARTMENT | | | | | | OF | | | | | | PATHOLOGY | | + + + + + + | Antibody | Negative | | [facility] | | | Screen | | | DEPARTMENT | | | | | | OF | | | | | | PATHOLOGY | | + + + + + + + + | Specimen | + + | Blood - Blood | + + + + + + + | Performing | Address | City/State/Zipcode | Phone Number | | Organization | | | | + + + + + | [facility] | [address] | [place] [address] | | | PATHOLOGY | [address] | | | + + + + + | [facility] | [address] | [place] [address] | | | PATHOLOGY | [address] | | | + + + + + CBC ONLY (11/21/2008 4:41 AM PDT) + + + + + + | Component | Value | Ref Range | Performed | Pathologist | | | | | At | Signature | + + + + + + | WHITE CELL | 18.6 (H) | 4.4 - 11.0 K/cu | [facility] | | | COUNT | | mm | DEPARTMENT | | | | | | OF | | | | | | PATHOLOGY | | + + + + + + | RED CELL | 2.68 (L) | 4.00 - 5.20 | [facility] | | | COUNT | | M/cu mm | DEPARTMENT | | | | | | OF | | | | | | PATHOLOGY | | + + + + + + | HEMOGLOBIN | 7.8 (L) | 12.0 - 16.0 | [facility] | | | | | g/dL | DEPARTMENT | | | | | | OF | | | | | | PATHOLOGY | | + + + + + + | HEMATOCRIT | 23.5 (L) | 36.0 - 46.0 % | [facility] | | | | | | DEPARTMENT | | | | | | OF | | | | | | PATHOLOGY | | + + + + + + | MCV | 87.5 | 80.0 - 96.0 fL | [facility] | | | | | | DEPARTMENT | | | | | | OF | | | | | | PATHOLOGY | | + + + + + + | MCHC | 33.3 (L) | 33.4 - 35.5 | [facility] | | | | | g/dL | DEPARTMENT | | | | | | OF | | | | | | PATHOLOGY | | + + + + + + | RDW | 16.4 (H) | 11.5 - 15.0 % | [facility] | | | | | | DEPARTMENT | | | | | | OF | | | | | | PATHOLOGY | | + + + + + + | PLATELET | 562 (H) | 150 - 400 K/cu | [facility] | | | COUNT | | mm | DEPARTMENT | | | | | | OF | | | | | | PATHOLOGY | | + + + + + + + + | Specimen | + + | Blood - Blood | + + + + + + + | Performing | Address | City/State/Zipcode | Phone Number | | Organization | | | | + + + + + | [facility] | [address] | [place] [address] | | | PATHOLOGY | [address] | | | + + + + + | [facility] | [address] | [place] [address] | | | PATHOLOGY | [address] | | | + + + + + MAGNESIUM, PLASMA (11/21/2008 4:41 AM PDT) + +-------+ + + + | Component | Value | Ref Range | Performed | Pathologist | | | | | At | Signature | + +-------+ + + + | MAGNESIUM,P | 2.3 | 1.8 - 2.5 mg/dL | [facility] | | | LASMA | | | DEPARTMENT | | | | | | OF | | | | | | PATHOLOGY | | + +-------+ + + + + + | Specimen | + + | Blood - Blood | + + + + + + + | Performing | Address | City/State/Zipcode | Phone Number | | Organization | | | | + + + + + | [facility] | [address] | [place] [address] | | | PATHOLOGY | [address] | | | + + + + + | [facility] | [address] [place] [address] | [place] [address] | | | PATHOLOGY | [address] | | | + + + + + BASIC METABOLIC SET (NA, K, CL, TCO2, BUN, CR, GLU, CA) (11/21/2008 4:41 AM PDT) + + + + + + | Component | Value | Ref Range | Performed | Pathologist | | | | | At | Signature | + + + + + + | GLUCOSE, | 132 (H) | 60 - 99 mg/dL | [facility] | | | PLASMA | | | DEPARTMENT | | | (LAB) | | | OF | | | | | | PATHOLOGY | | + + + + + + | BUN, PLASMA | 10 | 6 - 20 mg/dL | [facility] | | | (LAB) | | | DEPARTMENT | | | | | | OF | | | | | | PATHOLOGY | | + + + + + + | CREATININE | 0.58 (L) | 0.60 - 1.10 | [facility] | | | PLASMA | | mg/dL | DEPARTMENT | | | (LAB) | | | OF | | | | | | PATHOLOGY | | + + + + + + | SODIUM, | 138 | 134 - 143 | [facility] | | | PLASMA | | mmol/L | DEPARTMENT | | | (LAB) | | | OF | | | | | | PATHOLOGY | | + + + + + + | POTASSIUM, | 4.2 | 3.4 - 5.0 | [facility] | | | PLASMA | | mmol/L | DEPARTMENT | | | (LAB) | | | OF | | | | | | PATHOLOGY | | + + + + + + | CHLORIDE, | 106 | 97 - 108 mmol/L | [facility] | | | PLASMA | | | DEPARTMENT | | | (LAB) | | | OF | | | | | | PATHOLOGY | | + + + + + + | CALCIUM, | 8.4 (L) | 8.6 - 10.2 | [facility] | | | PLASMA | | mg/dL | DEPARTMENT | | | (LAB) | | | OF | | | | | | PATHOLOGY | | + + + + + + | TOTAL CO2, | 28 | 23 - 31 mmol/L | [facility] | | | PLASMA | | | DEPARTMENT | | | (LAB) | | | OF | | | | | | PATHOLOGY | | + + + + + + + + | Specimen | + + | Blood - Blood | + + + + + + + | Performing | Address | City/State/Zipcode | Phone Number | | Organization | | | | + + + + + | [facility] | [address] | [place] [address] | | | PATHOLOGY | [address] | | | + + + + + | [facility] | [address] | [place] [address] | | | PATHOLOGY | [address] | | | + + + + + PHOSPHORUS, PLASMA (11/21/2008 4:41 AM PDT) + +-------+ + + + | Component | Value | Ref Range | Performed | Pathologist | | | | | At | Signature | + +-------+ + + + | PHOSPHORUS, | 4.3 | 2.4 - 4.7 mg/dL | [facility] | | | PLASMA | | | DEPARTMENT | | | (LAB) | | | OF | | | | | | PATHOLOGY | | + +-------+ + + + + + | Specimen | + + | Blood - Blood | + + + + + + + | Performing | Address | City/State/Zipcode | Phone Number | | Organization | | | | + + + + + | [facility] | [address] | [place] [address] | | | PATHOLOGY | [address] | | | + + + + + | [facility] | [address] | [place] [address] | | | PATHOLOGY | [address] | | | + + + + + OPERATION RECORD (11/21/2008 12:00 AM PDT) + + + | Narrative | Performed At | + + + | [id number] | | | [id number] | | | [id number] [address] | | | KELLY 197730 | | | Date: 11/21/2008 Attending | | | Surgeon: Jhon Cabello M.D. | | | Governor Assembler(s): Ulysses Pena | | | Aguilar Preoperative Diagnosis(es): 1. Arterial embolus, | | | left forearm. 2. Gangrene, left index, middle, ring, and small | | | fingers. Postoperative Diagnosis(es): 1. Arterial | | | embolus, left forearm. 2. Gangrene, left index, middle, ring, | | | and small fingers. Procedures Performed: 1. Irrigation | | | and debridement of left hand including skin, subcutaneous | | | tissue, muscle, tendon, and bone. 2. Middle | | | phalangeal level amputations of left index, middle, ring, and | | | small fingers. Clinical Preamble: This 53-year-old | | | female apparently presented with a subacute arterial occlusion, | | | several days following a horse bite to the left arm. She | | | underwent a revascularization by the Vascular Surgery Service. | | | She underwent a second procedure after the limb once the artery had | | | become occluded. She underwent fasciotomy for clinical | | | compartment syndrome due to the prolonged ischemia. She | | | unfortunately suffered necrosis of the tips of all lesser | | | digits. She had some apparent necrosis of the skin of the tip of | | | the thumb. However, what appeared likely to be full-thickness in | | | a small area, the remainder of the thumb appeared in good | | | condition. We, therefore, did not recommend amputation or surgical | | | debridement of the thumb at the present time. However, there | | | appeared to be a clear demarcation of the gangrenous finger at the | | | level of the middle phalanx. The nature of the condition was | | | discussed with the patient in detail. She appeared to have poor | | | understanding of our discussion, and ( ) was therefore | | | involved on our request. The patient also appeared to understand | | | the condition and surgical options discussed and appeared able to | | | provide consent for surgery. Procedure: Under general | | | anesthetic, the patient was placed supine on the operating table, | | | and the left arm was prepped and free draped in a sterile fashion. | | | The fasciotomy wounds were inspected. It was partially opened and | | | debrided with irrigation. The fingertips of all lesser digits | | | were black and necrotic as described above. Eccentric fishmouth | | | incisions were made on each of the index, middle, ring, and small | | | fingers. The flaps were adjusted with longer flaps dorsally due | | | to the level of skin necrosis on both sides of each digits. The | | | surgery was performed without tourniquet. The flexor and extensor | | | tendons were cut, and the bone of the middle phalanx was | | | osteotomized, just distal to the flexor digitorum superficialis | | | insertion, which was left intact for each of the digits. The | | | edges of the bone were beveled. The wounds were then thoroughly | | | irrigated with sterile saline. The skin was reapproximated over | | | the end of the bone and closed with interrupted 5-0 nylon. A | | | sterile dressing was applied. The patient was then awoken and | | | returned to our hospital bed. She was transferred to PACU in | | | stable condition. The patient tolerated the procedure well with | | | no complication and minimal blood loss. Postoperative Plan: | | | This patient will require close followup for observation of wound | | | healing and to look for any signs of proximal progression of the | | | ischemic necrosis. We will also commence hand therapy focussed on | | | MCP and some motion once the wounds appear to be stabilized. | | | Jhon Cabello M.D. ROSALEE / VONNIE [id number] / [id number] / [id number] / | | | C: 12/13/2008 sheron | | + + + + + | Procedure Note | + + | Jhon Cabello MD - 11/21/2008 12:00 AM PDT [id number] | | [id number] [address] | | [id number] Date: 11/21/2008 Attending Surgeon: | | Jhon Cabello M.D. Governor Assembler(s): Ulysses Pena M.D. | | Preoperative Diagnosis(es):1. Arterial embolus, left forearm.2. Gangrene, left | | index, middle, ring, and small fingers. Postoperative Diagnosis(es):1. Arterial | | embolus, left forearm.2. Gangrene, left index, middle, ring, and small fingers. | | Procedures Performed:1. Irrigation and debridement of left hand including skin, | | subcutaneous tissue, muscle, tendon, and bone.2. Middle phalangeal level | | amputations of left index, middle, ring, and small fingers. Clinical Preamble:This | | 53-year-old female apparently presented with a subacute arterialocclusion, several days | | following a horse bite to the left arm. Sheunderwent a revascularization by the | | Vascular Surgery Service. Sheunderwent a second procedure after the limb once the | | artery had becomeoccluded. She underwent fasciotomy for clinical compartment syndrome | | dueto the prolonged ischemia. She unfortunately suffered necrosis of the tipsof all | | lesser digits. She had some apparent necrosis of the skin of thetip of the thumb. | | However, what appeared likely to be full-thickness in asmall area, the remainder of the | | thumb appeared in good condition. We,therefore, did not recommend amputation or | | surgical debridement of thethumb at the present time. However, there appeared to be a | | cleardemarcation of the gangrenous finger at the level of the middle phalanx.The nature | | of the condition was discussed with the patient in detail. Sheappeared to have poor | | understanding of our discussion, and( ) was therefore involved on our | | request. The patient alsoappeared to understand the condition and surgical options | | discussed andappeared able to provide consent for surgery. Procedure:Under general | | anesthetic, the patient was placed supine on the operatingtable, and the left arm was | | prepped and free draped in a sterile fashion.The fasciotomy wounds were inspected. It | | was partially opened and debridedwith irrigation. The fingertips of all lesser digits | | were black andnecrotic as described above. Eccentric fishmouth incisions were made | | oneach of the index, middle, ring, and small fingers. The flaps wereadjusted with | | longer flaps dorsally due to the level of skin necrosis onboth sides of each digits. | | The surgery was performed without tourniquet.The flexor and extensor tendons were cut, | | and the bone of the middlephalanx was osteotomized, just distal to the flexor digitorum | | superficialisinsertion, which was left intact for each of the digits. The edges of | | thebone were beveled. The wounds were then thoroughly irrigated with sterilesaline. | | The skin was reapproximated over the end of the bone and closedwith interrupted 5-0 | | nylon. A sterile dressing was applied. The patientwas then awoken and returned to our | | hospital bed. She was transferred toPACU in stable condition. The patient tolerated | | the procedure well with nocomplication and minimal blood loss. Postoperative Plan:This | | patient will require close followup for observation of wound healingand to look for any | | signs of proximal progression of the ischemic necrosis.We will also commence hand | | therapy focussed on MCP and some motion once thewounds appear to be stabilized. | | Jhon Cabello M.D.ROSALEE / [id number] / [id number] / [id number] / T: 12/13/2008C: | | 12/13/2008 dlinez | |The nature of the condition was discussed with the patient in detail. She | |appeared to have poor understanding of our discussion, and | |( ) was therefore involved on our request. The patient also | |appeared to understand the condition and surgical options discussed and | |appeared able to provide consent for surgery. | | | | | |Procedure: | |Under general anesthetic, the patient was placed supine on the operating | |table, and the left arm was prepped and free draped in a sterile fashion. | |The fasciotomy wounds were inspected. It was partially opened and debrided | |with irrigation. The fingertips of all lesser digits were black and | |necrotic as described above. Eccentric fishmouth incisions were made on | |each of the index, middle, ring, and small fingers. The flaps were | |adjusted with longer flaps dorsally due to the level of skin necrosis on | |both sides of each digits. The surgery was performed without tourniquet. | |The flexor and extensor tendons were cut, and the bone of the middle | |phalanx was osteotomized, just distal to the flexor digitorum superficialis | |insertion, which was left intact for each of the digits. The edges of the | |bone were beveled. The wounds were then thoroughly irrigated with sterile | |saline. The skin was reapproximated over the end of the bone and closed | |with interrupted 5-0 nylon. A sterile dressing was applied. The patient | |was then awoken and returned to our hospital bed. She was transferred to | |PACU in stable condition. The patient tolerated the procedure well with no | |complication and minimal blood loss. | | | | | |Postoperative Plan: | |This patient will require close followup for observation of wound healing | |and to look for any signs of proximal progression of the ischemic necrosis. | |We will also commence hand therapy focussed on MCP and some motion once the | |wounds appear to be stabilized. | | | | | | | | | |Jhon Cabello M.D. | |RMO / HS | |[id number] / [id number] / [id number] / | | | | | |C: 12/13/2008 dlg | | | | | | | | | + + ANESTHESIA/SEDATION (11/21/2008 12:00 AM PDT) + + + | Narrative | Performed At | + + + | | | + + + + + | Procedure Note | + + | Other, Faculty - 11/21/2008 12:00 AM PDT | | | + + SURGICAL PATHOLOGY (11/21/2008) + + + + + + | Component | Value | Ref Range | Performed | Pathologist | | | | | At | Signature | + + + + + + | SURGICAL | SOURCE OF SPECIMEN:A | | [facility] | | | PATHOLOGY | Left middle phlangeal | | DEPARTMENT | | | | amputations | | OF | | | | Final Pathologic | | PATHOLOGY | | | | Diagnosis:Left middle | | | | | | phalanges, | | | | | | amputations: - | | | | | | Four fingers with acute | | | | | | inflammation and | | | | | | necrosis - No | | | | | | evidence of acute | | | | | | osteomyelitis | | | | | | Case seen by:Tha | | | | | | Aguilar Vincent / | | | | | | Surgical Pathology | | | | | | Yu Kaur | | | | | | Aguilar Tinsley / | | | | | | PathologistT:11/23/08:la | | | | | | b Clinical | | | | | | History:The patient is a | | | | | | 53-year-old | | | | | | female. 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 Gross | | | | | | Description:One specimen | | | | | | is received in formalin | | | | | | in a container labeled | | | | | | with thepatient name | | | | | | (initials WC) and "left | | | | | | middle phalangeal | | | | | | amputations."Received | | | | | | are 4 distal phalanges | | | | | | that appear to have been | | | | | | amputated at thedistal | | | | | | interphalangeal joint: | | | | | | #1 measuring 2.5 (PD) x | | | | | | 2 (ML) x 1 (AP) cm;#2 | | | | | | measuring 2.9 (PD) x 2 | | | | | | (ML) x 1 (AP) cm; #3 | | | | | | measuring 3.1 (PD) x | | | | | | 1.8(ML) x 1 (AP) cm; and | | | | | | #4 measuring 2.3 (PD) x | | | | | | 2 (ML) x 1.1 (AP) | | | | | | cm. Allphalanges are | | | | | | black in color with | | | | | | black nail | | | | | | beds. There are no | | | | | | lesions onthe skin | | | | | | surface identified. A | | | | | | medical device sales representative section | | | | | | from each surgicalmargin | | | | | | is submitted. A | | | | | | longitudinal section of | | | | | | one of the phalanges | | | | | | issubmitted. | | | | | | Cassette Index:A1, | | | | | | longitudinal full | | | | | | thickness cross section, | | | | | | decalcification | | | | | | performedA2, surgical | | | | | | soft tissue and bony | | | | | | margins, decalcification | | | | | | performedMEG:tp | | | | | | My electronic signature | | | | | | indicates that I have | | | | | | personally reviewed | | | | | | alldiagnostic slides, | | | | | | the gross and/or | | | | | | microscopic portion of | | | | | | thisreport and | | | | | | formulated the final | | | | | | diagnosis. | | | | | | Rendering | | | | | | Diagnostician: Isidro | | | | | | d Laureano | | | | | | M.ShimaPathologistElectroni | | | | | | андрей Signed 11/26/2008 | | | | + + + + + + + + | Specimen | + + | Other | + + + + + + + | Performing | Address | City/State/Zipcode | Phone Number | | Organization | | | | + + + + + | [facility] | [address] | [place] [address] | | | PATHOLOGY | [address] | | | + + + + + | [facility] | [address] | [place] [address] | | | PATHOLOGY | [address] | | | + + + + + CBC ONLY (11/20/2008 4:40 AM PDT) + + + + + + | Component | Value | Ref Range | Performed | Pathologist | | | | | At | Signature | + + + + + + | WHITE CELL | 19.7 (H) | 4.4 - 11.0 K/cu | [facility] | | | COUNT | | mm | DEPARTMENT | | | | | | OF | | | | | | PATHOLOGY | | + + + + + + | RED CELL | 2.82 (L) | 4.00 - 5.20 | [facility] | | | COUNT | | M/cu mm | DEPARTMENT | | | | | | OF | | | | | | PATHOLOGY | | + + + + + + | HEMOGLOBIN | 8.3 (L) | 12.0 - 16.0 | [facility] | | | | | g/dL | DEPARTMENT | | | | | | OF | | | | | | PATHOLOGY | | + + + + + + | HEMATOCRIT | 24.9 (L) | 36.0 - 46.0 % | [facility] | | | | | | DEPARTMENT | | | | | | OF | | | | | | PATHOLOGY | | + + + + + + | MCV | 88.2 | 80.0 - 96.0 fL | [facility] | | | | | | DEPARTMENT | | | | | | OF | | | | | | PATHOLOGY | | + + + + + + | MCHC | 33.4 | 33.4 - 35.5 | [facility] | | | | | g/dL | DEPARTMENT | | | | | | OF | | | | | | PATHOLOGY | | + + + + + + | RDW | 16.4 (H) | 11.5 - 15.0 % | [facility] | | | | | | DEPARTMENT | | | | | | OF | | | | | | PATHOLOGY | | + + + + + + | PLATELET | 581 (H) | 150 - 400 K/cu | [facility] | | | COUNT | | mm | DEPARTMENT | | | | | | OF | | | | | | PATHOLOGY | | + + + + + + + + | Specimen | + + | Blood - Blood | + + + + + + + | Performing | Address | City/State/Zipcode | Phone Number | | Organization | | | | + + + + + | [facility] | [address] | [place] [address] | | | PATHOLOGY | [address] | | | + + + + + | [facility] | [address] | [place] [address] | | | PATHOLOGY | [address] | | | + + + + + BASIC METABOLIC SET (NA, K, CL, TCO2, BUN, CR, GLU, CA) (11/20/2008 4:40 AM PDT) + +---------+ + + + | Component | Value | Ref Range | Performed | Pathologist | | | | | At | Signature | + +---------+ + + + | GLUCOSE, | 103 (H) | 60 - 99 mg/dL | [facility] | | | PLASMA | | | DEPARTMENT | | | (LAB) | | | OF | | | | | | PATHOLOGY | | + +---------+ + + + | BUN, PLASMA | 9 | 6 - 20 mg/dL | [facility] | | | (LAB) | | | DEPARTMENT | | | | | | OF | | | | | | PATHOLOGY | | + +---------+ + + + | CREATININE | 0.66 | 0.60 - 1.10 | [facility] | | | PLASMA | | mg/dL | DEPARTMENT | | | (LAB) | | | OF | | | | | | PATHOLOGY | | + +---------+ + + + | SODIUM, | 139 | 134 - 143 | [facility] | | | PLASMA | | mmol/L | DEPARTMENT | | | (LAB) | | | OF | | | | | | PATHOLOGY | | + +---------+ + + + | POTASSIUM, | 4.3 | 3.4 - 5.0 | [facility] | | | PLASMA | | mmol/L | DEPARTMENT | | | (LAB) | | | OF | | | | | | PATHOLOGY | | + +---------+ + + + | CHLORIDE, | 107 | 97 - 108 mmol/L | [facility] | | | PLASMA | | | DEPARTMENT | | | (LAB) | | | OF | | | | | | PATHOLOGY | | + +---------+ + + + | CALCIUM, | 8.0 (L) | 8.6 - 10.2 | [facility] | | | PLASMA | | mg/dL | DEPARTMENT | | | (LAB) | | | OF | | | | | | PATHOLOGY | | + +---------+ + + + | TOTAL CO2, | 29 | 23 - 31 mmol/L | [facility] | | | PLASMA | | | DEPARTMENT | | | (LAB) | | | OF | | | | | | PATHOLOGY | | + +---------+ + + + + + | Specimen | + + | Blood - Blood | + + + + + + + | Performing | Address | City/State/Zipcode | Phone Number | | Organization | | | | + + + + + | [facility] | [facility] | [place] [address] | | | PATHOLOGY | [address] | | | + + + + + | [facility] | [facility] | [place] [address] | | | PATHOLOGY | [address] | | | + + + + + PHOSPHORUS, PLASMA (11/20/2008 4:40 AM PDT) + +-------+ + + + | Component | Value | Ref Range | Performed | Pathologist | | | | | At | Signature | + +-------+ + + + | PHOSPHORUS, | 4.4 | 2.4 - 4.7 mg/dL | [facility] | | | PLASMA | | | DEPARTMENT | | | (LAB) | | | OF | | | | | | PATHOLOGY | | + +-------+ + + + + + | Specimen | + + | Blood - Blood | + + + + + + + | Performing | Address | City/State/Zipcode | Phone Number | | Organization | | | | + + + + + | [facility] | [address] | [place] [address] | | | PATHOLOGY | [address] | | | + + + + + | [facility] | [address] | [place] [address] | | | PATHOLOGY | [address] | | | + + + + + MAGNESIUM, PLASMA (11/20/2008 4:40 AM PDT) + +-------+ + + + | Component | Value | Ref Range | Performed | Pathologist | | | | | At | Signature | + +-------+ + + + | MAGNESIUM,P | 2.2 | 1.8 - 2.5 mg/dL | [facility] | | | LASMA | | | DEPARTMENT | | | | | | OF | | | | | | PATHOLOGY | | + +-------+ + + + + + | Specimen | + + | Blood - Blood | + + + + + + + | Performing | Address | City/State/Zipcode | Phone Number | | Organization | | | | + + + + + | [facility] | [address] | [place] [address] | | | PATHOLOGY | [address] | | | + + + + + | [facility] | [address] | [place] [address] | | | PATHOLOGY | [address] | | | + + + + + CBC ONLY (11/19/2008 4:00 AM PDT) + + + + + + | Component | Value | Ref Range | Performed | Pathologist | | | | | At | Signature | + + + + + + | WHITE CELL | 17.4 (H) | 4.4 - 11.0 K/cu | [facility] | | | COUNT | | mm | DEPARTMENT | | | | | | OF | | | | | | PATHOLOGY | | + + + + + + | RED CELL | 3.26 (L) | 4.00 - 5.20 | [facility] | | | COUNT | | M/cu mm | DEPARTMENT | | | | | | OF | | | | | | PATHOLOGY | | + + + + + + | HEMOGLOBIN | 9.7 (L) | 12.0 - 16.0 | [facility] | | | | | g/dL | DEPARTMENT | | | | | | OF | | | | | | PATHOLOGY | | + + + + + + | HEMATOCRIT | 28.5 (L) | 36.0 - 46.0 % | [facility] | | | | | | DEPARTMENT | | | | | | OF | | | | | | PATHOLOGY | | + + + + + + | MCV | 87.4 | 80.0 - 96.0 fL | [facility] | | | | | | DEPARTMENT | | | | | | OF | | | | | | PATHOLOGY | | + + + + + + | MCHC | 33.9 | 33.4 - 35.5 | [facility] | | | | | g/dL | DEPARTMENT | | | | | | OF | | | | | | PATHOLOGY | | + + + + + + | RDW | 16.8 (H) | 11.5 - 15.0 % | [facility] | | | | | | DEPARTMENT | | | | | | OF | | | | | | PATHOLOGY | | + + + + + + | PLATELET | 527 (H) | 150 - 400 K/cu | [facility] | | | COUNT | | mm | DEPARTMENT | | | | | | OF | | | | | | PATHOLOGY | | + + + + + + + + | Specimen | + + | Blood - Blood | + + + + + + + | Performing | Address | City/State/Zipcode | Phone Number | | Organization | | | | + + + + + | [facility] | [id number] | [place] [address] | | | PATHOLOGY | [address] | | | + + + + + | [facility] | [address] | [place] [address] | | | PATHOLOGY | [address] | | | + + + + + PHOSPHORUS, PLASMA (11/19/2008 4:00 AM PDT) + +-------+ + + + | Component | Value | Ref Range | Performed | Pathologist | | | | | At | Signature | + +-------+ + + + | PHOSPHORUS, | 4.5 | 2.4 - 4.7 mg/dL | [facility] | | | PLASMA | | | DEPARTMENT | | | (LAB) | | | OF | | | | | | PATHOLOGY | | + +-------+ + + + + + | Specimen | + + | Blood - Blood | + + + + + + + | Performing | Address | City/State/Zipcode | Phone Number | | Organization | | | | + + + + + | [facility] | [address] | [place] [address] | | | PATHOLOGY | [address] | | | + + + + + | [facility] | [address] | [place] [address] | | | PATHOLOGY | [address] | | | + + + + + BASIC METABOLIC SET (NA, K, CL, TCO2, BUN, CR, GLU, CA) (11/19/2008 4:00 AM PDT) + +---------+ + + + | Component | Value | Ref Range | Performed | Pathologist | | | | | At | Signature | + +---------+ + + + | GLUCOSE, | 100 (H) | 60 - 99 mg/dL | [facility] | | | PLASMA | | | DEPARTMENT | | | (LAB) | | | OF | | | | | | PATHOLOGY | | + +---------+ + + + | BUN, PLASMA | 10 | 6 - 20 mg/dL | [facility] | | | (LAB) | | | DEPARTMENT | | | | | | OF | | | | | | PATHOLOGY | | + +---------+ + + + | CREATININE | 0.66 | 0.60 - 1.10 | [facility] | | | PLASMA | | mg/dL | DEPARTMENT | | | (LAB) | | | OF | | | | | | PATHOLOGY | | + +---------+ + + + | SODIUM, | 140 | 134 - 143 | [facility] | | | PLASMA | | mmol/L | DEPARTMENT | | | (LAB) | | | OF | | | | | | PATHOLOGY | | + +---------+ + + + | POTASSIUM, | 3.6 | 3.4 - 5.0 | [facility] | | | PLASMA | | mmol/L | DEPARTMENT | | | (LAB) | | | OF | | | | | | PATHOLOGY | | + +---------+ + + + | CHLORIDE, | 108 | 97 - 108 mmol/L | [facility] | | | PLASMA | | | DEPARTMENT | | | (LAB) | | | OF | | | | | | PATHOLOGY | | + +---------+ + + + | CALCIUM, | 8.5 (L) | 8.6 - 10.2 | [facility] | | | PLASMA | | mg/dL | DEPARTMENT | | | (LAB) | | | OF | | | | | | PATHOLOGY | | + +---------+ + + + | TOTAL CO2, | 27 | 23 - 31 mmol/L | [facility] | | | PLASMA | | | DEPARTMENT | | | (LAB) | | | OF | | | | | | PATHOLOGY | | + +---------+ + + + + + | Specimen | + + | Blood - Blood | + + + + + + + | Performing | Address | City/State/Zipcode | Phone Number | | Organization | | | | + + + + + | [facility] | [address] | [place] [address] | | | PATHOLOGY | [address] | | | + + + + + | [facility] | [address] | [place] [address] | | | PATHOLOGY | [address] | | | + + + + + MAGNESIUM, PLASMA (11/19/2008 4:00 AM PDT) + +-------+ + + + | Component | Value | Ref Range | Performed | Pathologist | | | | | At | Signature | + +-------+ + + + | MAGNESIUM,P | 2.3 | 1.8 - 2.5 mg/dL | [facility] | | | LASMA | | | DEPARTMENT | | | | | | OF | | | | | | PATHOLOGY | | + +-------+ + + + + + | Specimen | + + | Blood - Blood | + + + + + + + | Performing | Address | City/State/Zipcode | Phone Number | | Organization | | | | + + + + + | [facility] | [address] | [place] [address] | | | PATHOLOGY | [address] | | | + + + + + | [facility] | [address] | [place] [address] | | | PATHOLOGY | [address] | | | + + + + + CBC ONLY (11/18/2008 4:45 AM PDT) + + + + + + | Component | Value | Ref Range | Performed | Pathologist | | | | | At | Signature | + + + + + + | RED CELL | 3.51 (L) | 4.00 - 5.20 | [facility] | | | COUNT | | M/cu mm | DEPARTMENT | | | | | | OF | | | | | | PATHOLOGY | | + + + + + + | HEMOGLOBIN | 10.4 (L) | 12.0 - 16.0 | [facility] | | | | | g/dL | DEPARTMENT | | | | | | OF | | | | | | PATHOLOGY | | + + + + + + | HEMATOCRIT | 30.9 (L) | 36.0 - 46.0 % | [facility] | | | | | | DEPARTMENT | | | | | | OF | | | | | | PATHOLOGY | | + + + + + + | MCV | 88.0 | 80.0 - 96.0 fL | [facility] | | | | | | DEPARTMENT | | | | | | OF | | | | | | PATHOLOGY | | + + + + + + | MCHC | 33.7 | 33.4 - 35.5 | [facility] | | | | | g/dL | DEPARTMENT | | | | | | OF | | | | | | PATHOLOGY | | + + + + + + | RDW | 16.7 (H) | 11.5 - 15.0 % | [facility] | | | | | | DEPARTMENT | | | | | | OF | | | | | | PATHOLOGY | | + + + + + + | PLATELET | 600 (H) | 150 - 400 K/cu | [facility] | | | COUNT | | mm | DEPARTMENT | | | | | | OF | | | | | | PATHOLOGY | | + + + + + + | WHITE CELL | 21.3 (H) | 4.4 - 11.0 K/cu | [facility] | | | COUNT | | mm | DEPARTMENT | | | | | | OF | | | | | | PATHOLOGY | | + + + + + + + + | Specimen | + + | Blood - Blood | + + + + + + + | Performing | Address | City/State/Zipcode | Phone Number | | Organization | | | | + + + + + | [facility] | [address] | [place] [address] | | | PATHOLOGY | [address] | | | + + + + + | [facility] | [address] | [place] [address] | | | PATHOLOGY | [address] | | | + + + + + PHOSPHORUS, PLASMA (11/18/2008 4:45 AM PDT) + +-------+ + + + | Component | Value | Ref Range | Performed | Pathologist | | | | | At | Signature | + +-------+ + + + | PHOSPHORUS, | 3.3 | 2.4 - 4.7 mg/dL | [facility] | | | PLASMA | | | DEPARTMENT | | | (LAB) | | | OF | | | | | | PATHOLOGY | | + +-------+ + + + + + | Specimen | + + | Blood - Blood | + + + + + + + | Performing | Address | City/State/Zipcode | Phone Number | | Organization | | | | + + + + + | [facility] | [address] | [place] [address] | | | PATHOLOGY | [address] | | | + + + + + | [facility] | [address] | [place] [address] | | | PATHOLOGY | [address] | | | + + + + + BASIC METABOLIC SET (NA, K, CL, TCO2, BUN, CR, GLU, CA) (11/18/2008 4:45 AM PDT) + +-------+ + + + | Component | Value | Ref Range | Performed | Pathologist | | | | | At | Signature | + +-------+ + + + | GLUCOSE, | 65 | 60 - 99 mg/dL | [facility] | | | PLASMA | | | DEPARTMENT | | | (LAB) | | | OF | | | | | | PATHOLOGY | | + +-------+ + + + | BUN, PLASMA | 8 | 6 - 20 mg/dL | [facility] | | | (LAB) | | | DEPARTMENT | | | | | | OF | | | | | | PATHOLOGY | | + +-------+ + + + | CREATININE | 0.66 | 0.60 - 1.10 | [facility] | | | PLASMA | | mg/dL | DEPARTMENT | | | (LAB) | | | OF | | | | | | PATHOLOGY | | + +-------+ + + + | SODIUM, | 142 | 134 - 143 | [facility] | | | PLASMA | | mmol/L | DEPARTMENT | | | (LAB) | | | OF | | | | | | PATHOLOGY | | + +-------+ + + + | POTASSIUM, | 4.1 | 3.4 - 5.0 | [facility] | | | PLASMA | | mmol/L | DEPARTMENT | | | (LAB) | | | OF | | | | | | PATHOLOGY | | + +-------+ + + + | CHLORIDE, | 108 | 97 - 108 mmol/L | [facility] | | | PLASMA | | | DEPARTMENT | | | (LAB) | | | OF | | | | | | PATHOLOGY | | + +-------+ + + + | CALCIUM, | 8.6 | 8.6 - 10.2 | [facility] | | | PLASMA | | mg/dL | DEPARTMENT | | | (LAB) | | | OF | | | | | | PATHOLOGY | | + +-------+ + + + | TOTAL CO2, | 28 | 23 - 31 mmol/L | [facility] | | | PLASMA | | | DEPARTMENT | | | (LAB) | | | OF | | | | | | PATHOLOGY | | + +-------+ + + + + + | Specimen | + + | Blood - Blood | + + + + + + + | Performing | Address | City/State/Zipcode | Phone Number | | Organization | | | | + + + + + | [facility] | [address] | [place] [address] | | | PATHOLOGY | [address] | | | + + + + + | [facility] | [address] | [place] [address] | | | PATHOLOGY | [address] | | | + + + + + MAGNESIUM, PLASMA (11/18/2008 4:45 AM PDT) + +-------+ + + + | Component | Value | Ref Range | Performed | Pathologist | | | | | At | Signature | + +-------+ + + + | MAGNESIUM,P | 2.4 | 1.8 - 2.5 mg/dL | [facility] | | | LASMA | | | DEPARTMENT | | | | | | OF | | | | | | PATHOLOGY | | + +-------+ + + + + + | Specimen | + + | Blood - Blood | + + + + + + + | Performing | Address | City/State/Zipcode | Phone Number | | Organization | | | | + + + + + | [facility] | [facility] [facility] | [place] [address] | | | PATHOLOGY | [address] | | | + + + + + | [facility] | [facility] [facility] [facility] | [place] [address] | | | PATHOLOGY | [address] | | | + + + + + CBC ONLY (11/17/2008 4:29 AM PDT) + + + + + + | Component | Value | Ref Range | Performed | Pathologist | | | | | At | Signature | + + + + + + | WHITE CELL | 15.1 (H) | 4.4 - 11.0 K/cu | [facility] | | | COUNT | | mm | DEPARTMENT | | | | | | OF | | | | | | PATHOLOGY | | + + + + + + | RED CELL | 3.30 (L) | 4.00 - 5.20 | [facility] | | | COUNT | | M/cu mm | DEPARTMENT | | | | | | OF | | | | | | PATHOLOGY | | + + + + + + | HEMOGLOBIN | 9.9 (L) | 12.0 - 16.0 | [facility] | | | | | g/dL | DEPARTMENT | | | | | | OF | | | | | | PATHOLOGY | | + + + + + + | HEMATOCRIT | 29.2 (L) | 36.0 - 46.0 % | [facility] | | | | | | DEPARTMENT | | | | | | OF | | | | | | PATHOLOGY | | + + + + + + | MCV | 88.4 | 80.0 - 96.0 fL | [facility] | | | | | | DEPARTMENT | | | | | | OF | | | | | | PATHOLOGY | | + + + + + + | MCHC | 33.9 | 33.4 - 35.5 | [facility] | | | | | g/dL | DEPARTMENT | | | | | | OF | | | | | | PATHOLOGY | | + + + + + + | RDW | 16.4 (H) | 11.5 - 15.0 % | [facility] | | | | | | DEPARTMENT | | | | | | OF | | | | | | PATHOLOGY | | + + + + + + | PLATELET | 502 (H) | 150 - 400 K/cu | [facility] | | | COUNT | | mm | DEPARTMENT | | | | | | OF | | | | | | PATHOLOGY | | + + + + + + + + | Specimen | + + | Blood - Blood | + + + + + + + | Performing | Address | City/State/Zipcode | Phone Number | | Organization | | | | + + + + + | [facility] | [address] | [place] [address] | | | PATHOLOGY | [address] | | | + + + + + | [facility] | [address] | [place] [address] | | | PATHOLOGY | [address] | | | + + + + + PHOSPHORUS, PLASMA (11/17/2008 4:29 AM PDT) + +-------+ + + + | Component | Value | Ref Range | Performed | Pathologist | | | | | At | Signature | + +-------+ + + + | PHOSPHORUS, | 2.9 | 2.4 - 4.7 mg/dL | [facility] | | | PLASMA | | | DEPARTMENT | | | (LAB) | | | OF | | | | | | PATHOLOGY | | + +-------+ + + + + + | Specimen | + + | Blood - Blood | + + + + + + + | Performing | Address | City/State/Zipcode | Phone Number | | Organization | | | | + + + + + | [facility] | [address] | [place] [address] | | | PATHOLOGY | [address] | | | + + + + + | [facility] | [address] | [place] [address] | | | PATHOLOGY | [address] | | | + + + + + MAGNESIUM, PLASMA (11/17/2008 4:29 AM PDT) + +-------+ + + + | Component | Value | Ref Range | Performed | Pathologist | | | | | At | Signature | + +-------+ + + + | MAGNESIUM,P | 2.3 | 1.8 - 2.5 mg/dL | [facility] | | | LASMA | | | DEPARTMENT | | | | | | OF | | | | | | PATHOLOGY | | + +-------+ + + + + + | Specimen | + + | Blood - Blood | + + + + + + + | Performing | Address | City/State/Zipcode | Phone Number | | Organization | | | | + + + + + | [facility] | [address] | [place] [address] | | | PATHOLOGY | [address] | | | + + + + + | [facility] | [address] | [place] [address] | | | PATHOLOGY | [address] | | | + + + + + BASIC METABOLIC SET (NA, K, CL, TCO2, BUN, CR, GLU, CA) (11/17/2008 4:29 AM PDT) + +---------+ + + + | Component | Value | Ref Range | Performed | Pathologist | | | | | At | Signature | + +---------+ + + + | GLUCOSE, | 195 (H) | 60 - 99 mg/dL | [facility] | | | PLASMA | | | DEPARTMENT | | | (LAB) | | | OF | | | | | | PATHOLOGY | | + +---------+ + + + | BUN, PLASMA | 9 | 6 - 20 mg/dL | [facility] | | | (LAB) | | | DEPARTMENT | | | | | | OF | | | | | | PATHOLOGY | | + +---------+ + + + | CREATININE | 0.65 | 0.60 - 1.10 | [facility] | | | PLASMA | | mg/dL | DEPARTMENT | | | (LAB) | | | OF | | | | | | PATHOLOGY | | + +---------+ + + + | SODIUM, | 139 | 134 - 143 | [facility] | | | PLASMA | | mmol/L | DEPARTMENT | | | (LAB) | | | OF | | | | | | PATHOLOGY | | + +---------+ + + + | POTASSIUM, | 4.1 | 3.4 - 5.0 | [facility] | | | PLASMA | | mmol/L | DEPARTMENT | | | (LAB) | | | OF | | | | | | PATHOLOGY | | + +---------+ + + + | CHLORIDE, | 105 | 97 - 108 mmol/L | [facility] | | | PLASMA | | | DEPARTMENT | | | (LAB) | | | OF | | | | | | PATHOLOGY | | + +---------+ + + + | CALCIUM, | 8.3 (L) | 8.6 - 10.2 | [facility] | | | PLASMA | | mg/dL | DEPARTMENT | | | (LAB) | | | OF | | | | | | PATHOLOGY | | + +---------+ + + + | TOTAL CO2, | 27 | 23 - 31 mmol/L | [facility] | | | PLASMA | | | DEPARTMENT | | | (LAB) | | | OF | | | | | | PATHOLOGY | | + +---------+ + + + + + | Specimen | + + | Blood - Blood | + + + + + + + | Performing | Address | City/State/Zipcode | Phone Number | | Organization | | | | + + + + + | [facility] | [address] | [place] [address] | | | PATHOLOGY | [address] | | | + + + + + | [facility] | [address] [facility] | [place] [address] | | | PATHOLOGY | [address] | | | + + + + + CBC ONLY (11/16/2008 5:16 AM PDT) + + + + + + | Component | Value | Ref Range | Performed | Pathologist | | | | | At | Signature | + + + + + + | WHITE CELL | 19.2 (H) | 4.4 - 11.0 K/cu | [facility] | | | COUNT | | mm | DEPARTMENT | | | | | | OF | | | | | | PATHOLOGY | | + + + + + + | RED CELL | 3.60 (L) | 4.00 - 5.20 | [facility] | | | COUNT | | M/cu mm | DEPARTMENT | | | | | | OF | | | | | | PATHOLOGY | | + + + + + + | HEMOGLOBIN | 10.8 (L) | 12.0 - 16.0 | [facility] | | | | | g/dL | DEPARTMENT | | | | | | OF | | | | | | PATHOLOGY | | + + + + + + | HEMATOCRIT | 31.7 (L) | 36.0 - 46.0 % | [facility] | | | | | | DEPARTMENT | | | | | | OF | | | | | | PATHOLOGY | | + + + + + + | MCV | 88.1 | 80.0 - 96.0 fL | [facility] | | | | | | DEPARTMENT | | | | | | OF | | | | | | PATHOLOGY | | + + + + + + | MCHC | 33.9 | 33.4 - 35.5 | [facility] | | | | | g/dL | DEPARTMENT | | | | | | OF | | | | | | PATHOLOGY | | + + + + + + | RDW | 16.7 (H) | 11.5 - 15.0 % | [facility] | | | | | | DEPARTMENT | | | | | | OF | | | | | | PATHOLOGY | | + + + + + + | PLATELET | 513 (H) | 150 - 400 K/cu | [facility] | | | COUNT | | mm | DEPARTMENT | | | | | | OF | | | | | | PATHOLOGY | | + + + + + + + + | Specimen | + + | Blood - Blood | + + + + + + + | Performing | Address | City/State/Zipcode | Phone Number | | Organization | | | | + + + + + | [facility] | [address] | [place] [address] | | | PATHOLOGY | [address] | | | + + + + + | [facility] | [facility] | [place] [address] | | | PATHOLOGY | [address] | | | + + + + + PHOSPHORUS, PLASMA (11/16/2008 5:16 AM PDT) + +-------+ + + + | Component | Value | Ref Range | Performed | Pathologist | | | | | At | Signature | + +-------+ + + + | PHOSPHORUS, | 4.0 | 2.4 - 4.7 mg/dL | [facility] | | | PLASMA | | | DEPARTMENT | | | (LAB) | | | OF | | | | | | PATHOLOGY | | + +-------+ + + + + + | Specimen | + + | Blood - Blood | + + + + + + + | Performing | Address | City/State/Zipcode | Phone Number | | Organization | | | | + + + + + | [facility] | [address] | [place] [address] | | | PATHOLOGY | [address] | | | + + + + + | [facility] | [address] | [place] [address] | | | PATHOLOGY | [address] | | | + + + + + MAGNESIUM, PLASMA (11/16/2008 5:16 AM PDT) + +-------+ + + + | Component | Value | Ref Range | Performed | Pathologist | | | | | At | Signature | + +-------+ + + + | MAGNESIUM,P | 2.3 | 1.8 - 2.5 mg/dL | [facility] | | | LASMA | | | DEPARTMENT | | | | | | OF | | | | | | PATHOLOGY | | + +-------+ + + + + + | Specimen | + + | Blood - Blood | + + + + + + + | Performing | Address | City/State/Zipcode | Phone Number | | Organization | | | | + + + + + | [facility] | [address] | [place] [address] | | | PATHOLOGY | [address] | | | + + + + + | [facility] | [address] [facility] | [place] [address] | | | PATHOLOGY | [address] | | | + + + + + BASIC METABOLIC SET (NA, K, CL, TCO2, BUN, CR, GLU, CA) (11/16/2008 5:16 AM PDT) + + + + + + | Component | Value | Ref Range | Performed | Pathologist | | | | | At | Signature | + + + + + + | GLUCOSE, | 71 | 60 - 99 mg/dL | [facility] | | | PLASMA | | | DEPARTMENT | | | (LAB) | | | OF | | | | | | PATHOLOGY | | + + + + + + | BUN, PLASMA | 8 | 6 - 20 mg/dL | [facility] | | | (LAB) | | | DEPARTMENT | | | | | | OF | | | | | | PATHOLOGY | | + + + + + + | CREATININE | 0.57 (L) | 0.60 - 1.10 | [facility] | | | PLASMA | | mg/dL | DEPARTMENT | | | (LAB) | | | OF | | | | | | PATHOLOGY | | + + + + + + | SODIUM, | 139 | 134 - 143 | [facility] | | | PLASMA | | mmol/L | DEPARTMENT | | | (LAB) | | | OF | | | | | | PATHOLOGY | | + + + + + + | POTASSIUM, | 4.1 | 3.4 - 5.0 | [facility] | | | PLASMA | | mmol/L | DEPARTMENT | | | (LAB) | | | OF | | | | | | PATHOLOGY | | + + + + + + | CHLORIDE, | 105 | 97 - 108 mmol/L | [facility] | | | PLASMA | | | DEPARTMENT | | | (LAB) | | | OF | | | | | | PATHOLOGY | | + + + + + + | CALCIUM, | 8.4 (L) | 8.6 - 10.2 | [facility] | | | PLASMA | | mg/dL | DEPARTMENT | | | (LAB) | | | OF | | | | | | PATHOLOGY | | + + + + + + | TOTAL CO2, | 28 | 23 - 31 mmol/L | [facility] | | | PLASMA | | | DEPARTMENT | | | (LAB) | | | OF | | | | | | PATHOLOGY | | + + + + + + + + | Specimen | + + | Blood - Blood | + + + + + + + | Performing | Address | City/State/Zipcode | Phone Number | | Organization | | | | + + + + + | [facility] | [address] | [place] [address] | | | PATHOLOGY | [address] | | | + + + + + | [facility] | [address] | [place] [address] | | | PATHOLOGY | [address] | | | + + + + + TYPE AND SCREEN (11/15/2008 2:00 PM PDT) + + + + + + | Component | Value | Ref Range | Performed | Pathologist | | | | | At | Signature | + + + + + + | ABO GROUP | A | | [facility] | | | | | | DEPARTMENT | | | | | | OF | | | | | | PATHOLOGY | | + + + + + + | RH TYPE | Positive | | [facility] | | | | | | DEPARTMENT | | | | | | OF | | | | | | PATHOLOGY | | + + + + + + | Antibody | Negative | | [facility] | | | Screen | | | DEPARTMENT | | | | | | OF | | | | | | PATHOLOGY | | + + + + + + + + | Specimen | + + | Blood - Blood | + + + + + + + | Performing | Address | City/State/Zipcode | Phone Number | | Organization | | | | + + + + + | [facility] | [address] | [place] [address] | | | PATHOLOGY | [address] | | | + + + + + | [facility] | [address] [place] [address] | [place] [address] | | | PATHOLOGY | [address] | | | + + + + + PRODUCT- RED CELLS LEUKOREDUCED (11/15/2008 1:42 PM PDT) + + + + + + | Component | Value | Ref Range | Performed | Pathologist | | | | | At | Signature | + + + + + + | PRODUCT | -1 RED BLOOD | | [facility] | | | DESCRIPTION | CELLS,ADENINE-SALINE | | DEPARTMENT | | | | ADDED,LEUKOCYTES REDUCED | | OF | | | | | | PATHOLOGY | | + + + + + + | PRODUCT | [id number] | | [facility] | | | UNIT # | | | DEPARTMENT | | | | | | OF | | | | | | PATHOLOGY | | + + + + + + | UNIT ABO | A | | [facility] | | | | | | DEPARTMENT | | | | | | OF | | | | | | PATHOLOGY | | + + + + + + | UNIT RH | POS | | [facility] | | | | | | DEPARTMENT | | | | | | OF | | | | | | PATHOLOGY | | + + + + + + | STATUS OF | Presumed Transfused | | [facility] | | | UNIT | | | DEPARTMENT | | | | | | OF | | | | | | PATHOLOGY | | + + + + + + + + | Specimen | + + | | + + + + + + + | Performing | Address | City/State/Zipcode | Phone Number | | Organization | | | | + + + + + | [facility] | [address] | [place] [address] | | | PATHOLOGY | [address] | | | + + + + + | [facility] | [address] | [place] [address] | | | PATHOLOGY | [address] | | | + + + + + PRODUCT- RED CELLS LEUKOREDUCED (11/15/2008 1:42 PM PDT) + + + + + + | Component | Value | Ref Range | Performed | Pathologist | | | | | At | Signature | + + + + + + | PRODUCT | -1 RED BLOOD | | [facility] | | | DESCRIPTION | CELLS,ADENINE-SALINE | | DEPARTMENT | | | | ADDED,LEUKOCYTES REDUCED | | OF | | | | | | PATHOLOGY | | + + + + + + | PRODUCT | [id number] | | [facility] | | | UNIT # | | | DEPARTMENT | | | | | | OF | | | | | | PATHOLOGY | | + + + + + + | UNIT ABO | A | | [facility] | | | | | | DEPARTMENT | | | | | | OF | | | | | | PATHOLOGY | | + + + + + + | UNIT RH | POS | | [facility] | | | | | | DEPARTMENT | | | | | | OF | | | | | | PATHOLOGY | | + + + + + + | STATUS OF | Presumed Transfused | | [facility] | | | UNIT | | | DEPARTMENT | | | | | | OF | | | | | | PATHOLOGY | | + + + + + + + + | Specimen | + + | | + + + + + + + | Performing | Address | City/State/Zipcode | Phone Number | | Organization | | | | + + + + + | [facility] | [address] | [place] [address] | | | PATHOLOGY | [address] | | | + + + + + | [facility] | [address] | [place] [address] | | | PATHOLOGY | [address] | | | + + + + + CBC ONLY (11/15/2008 5:35 AM PDT) + + + + + + | Component | Value | Ref Range | Performed | Pathologist | | | | | At | Signature | + + + + + + | WHITE CELL | 14.9 (H) | 4.4 - 11.0 K/cu | [facility] | | | COUNT | | mm | DEPARTMENT | | | | | | OF | | | | | | PATHOLOGY | | + + + + + + | RED CELL | 2.53 (L) | 4.00 - 5.20 | [facility] | | | COUNT | | M/cu mm | DEPARTMENT | | | | | | OF | | | | | | PATHOLOGY | | + + + + + + | HEMOGLOBIN | 7.6 (L) | 12.0 - 16.0 | [facility] | | | | | g/dL | DEPARTMENT | | | | | | OF | | | | | | PATHOLOGY | | + + + + + + | HEMATOCRIT | 22.0 (L) | 36.0 - 46.0 % | [facility] | | | | | | DEPARTMENT | | | | | | OF | | | | | | PATHOLOGY | | + + + + + + | MCV | 87.2 | 80.0 - 96.0 fL | [facility] | | | | | | DEPARTMENT | | | | | | OF | | | | | | PATHOLOGY | | + + + + + + | MCHC | 34.3 | 33.4 - 35.5 | [facility] | | | | | g/dL | DEPARTMENT | | | | | | OF | | | | | | PATHOLOGY | | + + + + + + | RDW | 16.6 (H) | 11.5 - 15.0 % | [facility] | | | | | | DEPARTMENT | | | | | | OF | | | | | | PATHOLOGY | | + + + + + + | PLATELET | 418 (H) | 150 - 400 K/cu | [facility] | | | COUNT | | mm | DEPARTMENT | | | | | | OF | | | | | | PATHOLOGY | | + + + + + + + + | Specimen | + + | Blood - Blood | + + + + + + + | Performing | Address | City/State/Zipcode | Phone Number | | Organization | | | | + + + + + | [facility] | [address] | [place] [address] | | | PATHOLOGY | [address] | | | + + + + + | [facility] | [address] | [place] [address] | | | PATHOLOGY | [address] | | | + + + + + MAGNESIUM, PLASMA (11/15/2008 5:35 AM PDT) + +-------+ + + + | Component | Value | Ref Range | Performed | Pathologist | | | | | At | Signature | + +-------+ + + + | MAGNESIUM,P | 2.2 | 1.8 - 2.5 mg/dL | [facility] | | | LASMA | | | DEPARTMENT | | | | | | OF | | | | | | PATHOLOGY | | + +-------+ + + + + + | Specimen | + + | Blood - Blood | + + + + + + + | Performing | Address | City/State/Zipcode | Phone Number | | Organization | | | | + + + + + | [facility] | [address] | [place] [address] | | | PATHOLOGY | [address] | | | + + + + + | [facility] | [address] | [place] [address] | | | PATHOLOGY | [address] | | | + + + + + PHOSPHORUS, PLASMA (11/15/2008 5:35 AM PDT) + +-------+ + + + | Component | Value | Ref Range | Performed | Pathologist | | | | | At | Signature | + +-------+ + + + | PHOSPHORUS, | 4.6 | 2.4 - 4.7 mg/dL | [facility] | | | PLASMA | | | DEPARTMENT | | | (LAB) | | | OF | | | | | | PATHOLOGY | | + +-------+ + + + + + | Specimen | + + | Blood - Blood | + + + + + + + | Performing | Address | City/State/Zipcode | Phone Number | | Organization | | | | + + + + + | [facility] | [address] | [place] [address] | | | PATHOLOGY | [address] | | | + + + + + | [facility] | [address] | [place] [address] | | | PATHOLOGY | [address] | | | + + + + + BASIC METABOLIC SET (NA, K, CL, TCO2, BUN, CR, GLU, CA) (11/15/2008 5:35 AM PDT) + + + + + + | Component | Value | Ref Range | Performed | Pathologist | | | | | At | Signature | + + + + + + | GLUCOSE, | 79 | 60 - 99 mg/dL | [facility] | | | PLASMA | | | DEPARTMENT | | | (LAB) | | | OF | | | | | | PATHOLOGY | | + + + + + + | BUN, PLASMA | 8 | 6 - 20 mg/dL | [facility] | | | (LAB) | | | DEPARTMENT | | | | | | OF | | | | | | PATHOLOGY | | + + + + + + | CREATININE | 0.58 (L) | 0.60 - 1.10 | [facility] | | | PLASMA | | mg/dL | DEPARTMENT | | | (LAB) | | | OF | | | | | | PATHOLOGY | | + + + + + + | SODIUM, | 140 | 134 - 143 | [facility] | | | PLASMA | | mmol/L | DEPARTMENT | | | (LAB) | | | OF | | | | | | PATHOLOGY | | + + + + + + | POTASSIUM, | 3.7 | 3.4 - 5.0 | [facility] | | | PLASMA | | mmol/L | DEPARTMENT | | | (LAB) | | | OF | | | | | | PATHOLOGY | | + + + + + + | CHLORIDE, | 104 | 97 - 108 mmol/L | [facility] | | | PLASMA | | | DEPARTMENT | | | (LAB) | | | OF | | | | | | PATHOLOGY | | + + + + + + | CALCIUM, | 8.4 (L) | 8.6 - 10.2 | [facility] | | | PLASMA | | mg/dL | DEPARTMENT | | | (LAB) | | | OF | | | | | | PATHOLOGY | | + + + + + + | TOTAL CO2, | 30 | 23 - 31 mmol/L | [facility] | | | PLASMA | | | DEPARTMENT | | | (LAB) | | | OF | | | | | | PATHOLOGY | | + + + + + + + + | Specimen | + + | Blood - Blood | + + + + + + + | Performing | Address | City/State/Zipcode | Phone Number | | Organization | | | | + + + + + | [facility] | [address] | [place] [address] | | | PATHOLOGY | [address] | | | + + + + + | [facility] | [address] | [place] [address] | | | PATHOLOGY | [address] | | | + + + + + CULTURE, BLOOD BACTI & YEAST (11/14/2008 7:36 AM PDT) + + + + + + | Component | Value | Ref Range | Performed | Pathologist | | | | | At | Signature | + + + + + + | SOURCE BODY | Right Antecubital | | | | | SITE | | | | | + + + + + + | CULTURE | Blood Culture | | | | | RESULT | | | | | | | Source.................. | | | | | | : Right Antecubital | | | | | | | | | | | | Result.................. | | | | | | . Final: No growth at 5 | | | | | | days. | | | | + + + + + + + + | Specimen | + + | | + + + + + + + | Performing | Address | City/State/Zipcode | Phone Number | | Organization | | | | + + + + + | [facility] | [address] | [place] [address] | | | PATHOLOGY | [address] | | | + + + + + CBC ONLY (11/14/2008 5:04 AM PDT) + + + + + + | Component | Value | Ref Range | Performed | Pathologist | | | | | At | Signature | + + + + + + | WHITE CELL | 16.8 (H) | 4.4 - 11.0 K/cu | [facility] | | | COUNT | | mm | DEPARTMENT | | | | | | OF | | | | | | PATHOLOGY | | + + + + + + | RED CELL | 2.85 (L) | 4.00 - 5.20 | [facility] | | | COUNT | | M/cu mm | DEPARTMENT | | | | | | OF | | | | | | PATHOLOGY | | + + + + + + | HEMOGLOBIN | 8.5 (L) | 12.0 - 16.0 | [facility] | | | | | g/dL | DEPARTMENT | | | | | | OF | | | | | | PATHOLOGY | | + + + + + + | HEMATOCRIT | 25.1 (L) | 36.0 - 46.0 % | [facility] | | | | | | DEPARTMENT | | | | | | OF | | | | | | PATHOLOGY | | + + + + + + | MCV | 88.2 | 80.0 - 96.0 fL | [facility] | | | | | | DEPARTMENT | | | | | | OF | | | | | | PATHOLOGY | | + + + + + + | MCHC | 33.7 | 33.4 - 35.5 | [facility] | | | | | g/dL | DEPARTMENT | | | | | | OF | | | | | | PATHOLOGY | | + + + + + + | RDW | 17.2 (H) | 11.5 - 15.0 % | [facility] | | | | | | DEPARTMENT | | | | | | OF | | | | | | PATHOLOGY | | + + + + + + | PLATELET | 439 (H) | 150 - 400 K/cu | [facility] | | | COUNT | | mm | DEPARTMENT | | | | | | OF | | | | | | PATHOLOGY | | + + + + + + + + | Specimen | + + | Blood - Blood | + + + + + + + | Performing | Address | City/State/Zipcode | Phone Number | | Organization | | | | + + + + + | [facility] | [address] | [place] [address] | | | PATHOLOGY | [address] | | | + + + + + | [facility] | [address] | [place] [address] | | | PATHOLOGY | [address] | | | + + + + + MAGNESIUM, PLASMA (11/14/2008 5:04 AM PDT) + +-------+ + + + | Component | Value | Ref Range | Performed | Pathologist | | | | | At | Signature | + +-------+ + + + | MAGNESIUM,P | 1.9 | 1.8 - 2.5 mg/dL | [facility] | | | LASMA | | | DEPARTMENT | | | | | | OF | | | | | | PATHOLOGY | | + +-------+ + + + + + | Specimen | + + | Blood - Blood | + + + + + + + | Performing | Address | City/State/Zipcode | Phone Number | | Organization | | | | + + + + + | [facility] | [address] | [place] [address] | | | PATHOLOGY | [address] | | | + + + + + | [facility] | [address] [place] [address] | [place] [address] | | | PATHOLOGY | [address] | | | + + + + + PHOSPHORUS, PLASMA (11/14/2008 5:04 AM PDT) + +-------+ + + + | Component | Value | Ref Range | Performed | Pathologist | | | | | At | Signature | + +-------+ + + + | PHOSPHORUS, | 3.2 | 2.4 - 4.7 mg/dL | [facility] | | | PLASMA | | | DEPARTMENT | | | (LAB) | | | OF | | | | | | PATHOLOGY | | + +-------+ + + + + + | Specimen | + + | Blood - Blood | + + + + + + + | Performing | Address | City/State/Zipcode | Phone Number | | Organization | | | | + + + + + | [facility] | [address] | [place] [address] | | | PATHOLOGY | [address] | | | + + + + + | [facility] | [address] | [place] [address] | | | PATHOLOGY | [address] | | | + + + + + BASIC METABOLIC SET (NA, K, CL, TCO2, BUN, CR, GLU, CA) (11/14/2008 5:04 AM PDT) + +---------+ + + + | Component | Value | Ref Range | Performed | Pathologist | | | | | At | Signature | + +---------+ + + + | GLUCOSE, | 197 (H) | 60 - 99 mg/dL | [facility] | | | PLASMA | | | DEPARTMENT | | | (LAB) | | | OF | | | | | | PATHOLOGY | | + +---------+ + + + | BUN, PLASMA | 4 (L) | 6 - 20 mg/dL | [facility] | | | (LAB) | | | DEPARTMENT | | | | | | OF | | | | | | PATHOLOGY | | + +---------+ + + + | CREATININE | 0.63 | 0.60 - 1.10 | [facility] | | | PLASMA | | mg/dL | DEPARTMENT | | | (LAB) | | | OF | | | | | | PATHOLOGY | | + +---------+ + + + | SODIUM, | 136 | 134 - 143 | [facility] | | | PLASMA | | mmol/L | DEPARTMENT | | | (LAB) | | | OF | | | | | | PATHOLOGY | | + +---------+ + + + | POTASSIUM, | 4.2 | 3.4 - 5.0 | [facility] | | | PLASMA | | mmol/L | DEPARTMENT | | | (LAB) | | | OF | | | | | | PATHOLOGY | | + +---------+ + + + | CHLORIDE, | 101 | 97 - 108 mmol/L | [facility] | | | PLASMA | | | DEPARTMENT | | | (LAB) | | | OF | | | | | | PATHOLOGY | | + +---------+ + + + | CALCIUM, | 8.3 (L) | 8.6 - 10.2 | [facility] | | | PLASMA | | mg/dL | DEPARTMENT | | | (LAB) | | | OF | | | | | | PATHOLOGY | | + +---------+ + + + | TOTAL CO2, | 28 | 23 - 31 mmol/L | [facility] | | | PLASMA | | | DEPARTMENT | | | (LAB) | | | OF | | | | | | PATHOLOGY | | + +---------+ + + + + + | Specimen | + + | Blood - Blood | + + + + + + + | Performing | Address | City/State/Zipcode | Phone Number | | Organization | | | | + + + + + | [facility] | [address] | [place] [address] | | | PATHOLOGY | [address] | | | + + + + + | [facility] | [address] | [place] [address] | | | PATHOLOGY | [address] | | | + + + + + CULTURE, BLOOD BACTI & YEAST (11/14/2008 5:04 AM PDT) + + + + + + | Component | Value | Ref Range | Performed | Pathologist | | | | | At | Signature | + + + + + + | SOURCE BODY | Right Intrajugular | | | | | SITE | Central venous catheter | | | | + + + + + + | CULTURE | Blood Culture | | | | | RESULT | | | | | | | Source.................. | | | | | | : Right Intrajugular | | | | | | Central venous catheter | | | | | | | | | | | | Result.................. | | | | | | . Final: No growth at 5 | | | | | | days. | | | | + + + + + + + + | Specimen | + + | Blood - Blood | + + + + + + + | Performing | Address | City/State/Zipcode | Phone Number | | Organization | | | | + + + + + | [facility] | [address] | [place] [address] | | | PATHOLOGY | [address] | | | + + + + + CULTURE, BLOOD BACTI & YEAST (11/13/2008 2:45 PM PDT) + + + + + + | Component | Value | Ref Range | Performed | Pathologist | | | | | At | Signature | + + + + + + | SOURCE BODY | Right Antecubital | | | | | SITE | | | | | + + + + + + | CULTURE | Blood Culture | | | | | RESULT | | | | | | | Source.................. | | | | | | : Right Antecubital | | | | | | | | | | | | Result.................. | | | | | | . Final: No growth at 5 | | | | | | days. | | | | + + + + + + + + | Specimen | + + | Blood - Arm | + + + + + + + | Performing | Address | City/State/Zipcode | Phone Number | | Organization | | | | + + + + + | [facility] | [address] | [place] [address] | | | PATHOLOGY | [address] | | | + + + + + CULTURE, URINE BACTI (11/13/2008 11:06 AM PDT) + + + + + + | Component | Value | Ref Range | Performed | Pathologist | | | | | At | Signature | + + + + + + | SOURCE BODY | Clean catch | | | | | SITE | | | | | + + + + + + | CULTURE | Urine Culture | | | | | RESULT | | | | | | | Source...............: | | | | | | Clean catch | | | | | | Culture: Final | | | | | | Report: No growth (< | | | | | | 1,000 col/ml) after 24 | | | | | | hours Final | | | | | | Report | | | | | | Resulted: | | | | | | 15/11 | | | | | | [facility] | | | | | | ([facility]) | | | | | | [facility] | | | | | | [facility] | | | | | | [address] [address] | | | | | | [facility] | | | | | | [place] | | | | | | , [place] [address] | | | | + + + + + + + + | Specimen | + + | | + + + + + + + | Performing | Address | City/State/Zipcode | Phone Number | | Organization | | | | + + + + + | [facility] | [address] | [place] [address] | | | PATHOLOGY | [address] | | | + + + + + KASEY FELTON (11/13/2008 11:06 AM PDT) + + + + + + | Component | Value | Ref Range | Performed | Pathologist | | | | | At | Signature | + + + + + + | COLOR(UR) | Yellow | | [facility] | | | | | | DEPARTMENT | | | | | | OF | | | | | | PATHOLOGY | | + + + + + + | APPEARANCE | Hazy | | [facility] | | | | | | DEPARTMENT | | | | | | OF | | | | | | PATHOLOGY | | + + + + + + | GLUCOSE(UR) | >=1000 (A) | mg/dL | [facility] | | | | | | DEPARTMENT | | | | | | OF | | | | | | PATHOLOGY | | + + + + + + | BILIRUBIN | Negative | | [facility] | | | | | | DEPARTMENT | | | | | | OF | | | | | | PATHOLOGY | | + + + + + + | KETONES | Negative | mg/dL | [facility] | | | | | | DEPARTMENT | | | | | | OF | | | | | | PATHOLOGY | | + + + + + + | SPECIFIC | <=1.005 | 1.005 - 1.030 | [facility] | | | GRAVITY | | | DEPARTMENT | | | | | | OF | | | | | | PATHOLOGY | | + + + + + + | BLOOD | Large (A) | | [facility] | | | | | | DEPARTMENT | | | | | | OF | | | | | | PATHOLOGY | | + + + + + + | PH(UR) | 5.5 | 5.0 - 8.0 | [facility] | | | | | | DEPARTMENT | | | | | | OF | | | | | | PATHOLOGY | | + + + + + + | PROTEIN(LAB | Negative | mg/dL | [facility] | | | ) | | | DEPARTMENT | | | | | | OF | | | | | | PATHOLOGY | | + + + + + + | UROBILINOGE | 0.2 | 0 - 0.2 NENA | [facility] | | | N | | UNITS | DEPARTMENT | | | | | | OF | | | | | | PATHOLOGY | | + + + + + + | NITRITES | Negative | Negative | [facility] | | | | | | DEPARTMENT | | | | | | OF | | | | | | PATHOLOGY | | + + + + + + | LEUKOCYTE | Small (A) | Negative | [facility] | | | ESTERASE | | | DEPARTMENT | | | | | | OF | | | | | | PATHOLOGY | | + + + + + + + + | Specimen | + + | Urine - Urine | + + + + + + + | Performing | Address | City/State/Zipcode | Phone Number | | Organization | | | | + + + + + | [facility] | [address] | [place] [address] | | | PATHOLOGY | [address] | | | + + + + + | [facility] | [address] | [place] [address] | | | PATHOLOGY | [address] | | | + + + + + URINE, MICROSCOPIC EXAM (11/13/2008 11:06 AM PDT) + + + + + + | Component | Value | Ref Range | Performed | Pathologist | | | | | At | Signature | + + + + + + | SQUAMOUS | Moderate (A) | /hpf | [facility] | | | EPITHELIAL | | | DEPARTMENT | | | | | | OF | | | | | | PATHOLOGY | | + + + + + + | NON-SQUAMOU | Few (A) | /hpf | [facility] | | | S EPITH | | | DEPARTMENT | | | | | | OF | | | | | | PATHOLOGY | | + + + + + + | RED CELLS | 5-10 | 0 - 3 /hpf | [facility] | | | | | | DEPARTMENT | | | | | | OF | | | | | | PATHOLOGY | | + + + + + + | WHITE CELLS | 2-5 | 0 - 5 /hpf | [facility] | | | | | | DEPARTMENT | | | | | | OF | | | | | | PATHOLOGY | | + + + + + + | BACTERIA | Few (A) | /hpf | [facility] | | | | | | DEPARTMENT | | | | | | OF | | | | | | PATHOLOGY | | + + + + + + | MUCOUS | None | /hpf | [facility] | | | | | | DEPARTMENT | | | | | | OF | | | | | | PATHOLOGY | | + + + + + + | HYALINE | None | 0 - 1 /lpf | [facility] | | | CASTS | | | DEPARTMENT | | | | | | OF | | | | | | PATHOLOGY | | + + + + + + | GRANULAR | None | /lpf | [facility] | | | CASTS | | | DEPARTMENT | | | | | | OF | | | | | | PATHOLOGY | | + + + + + + | CELLULAR | None | /lpf | [facility] | | | CASTS | | | DEPARTMENT | | | | | | OF | | | | | | PATHOLOGY | | + + + + + + | AMORPHOUS | None | /hpf | [facility] | | | CRYSTALS | | | DEPARTMENT | | | | | | OF | | | | | | PATHOLOGY | | + + + + + + | CALCIUM | None | /hpf | [facility] | | | OXALATE | | | DEPARTMENT | | | BERNARDO | | | OF | | | | | | PATHOLOGY | | + + + + + + | URIC ACID | None | /hpf | [facility] | | | CRYSTALS | | | DEPARTMENT | | | | | | OF | | | | | | PATHOLOGY | | + + + + + + | TRIPLE P04 | None | /hpf | [facility] | | | CRYSTALS | | | DEPARTMENT | | | | | | OF | | | | | | PATHOLOGY | | + + + + + + | YEAST (LAB) | None | /hpf | [facility] | | | | | | DEPARTMENT | | | | | | OF | | | | | | PATHOLOGY | | + + + + + + | TRICHOMONAS | None | /hpf | [facility] | | | | | | DEPARTMENT | | | | | | OF | | | | | | PATHOLOGY | | + + + + + + + + | Specimen | + + | Urine - Urine | + + + + + + + | Performing | Address | City/State/Zipcode | Phone Number | | Organization | | | | + + + + + | [facility] | [address] | [place] [address] | | | PATHOLOGY | [address] | | | + + + + + | [facility] | [address] | [place] [address] | | | PATHOLOGY | [address] | | | + + + + + URINE SCREEN FOR CULTURE (11/13/2008 11:06 AM PDT) + + + + + + | Component | Value | Ref Range | Performed | Pathologist | | | | | At | Signature | + + + + + + | CULT, URINE | Positive for Nitrite | | [facility] | | | SCREEN | and/or Leukocyte | | DEPARTMENT | | | | Esterase.Specimen sent | | OF | | | | for culture. | | PATHOLOGY | | + + + + + + + + | Specimen | + + | Urine - Urine | + + + + + + + | Performing | Address | City/State/Zipcode | Phone Number | | Organization | | | | + + + + + | [facility] | [facility] [facility] | [place] [address] | | | PATHOLOGY | [address] | | | + + + + + | [facility] | [address] | [place] [address] | | | PATHOLOGY | [address] | | | + + + + + CBC ONLY (11/13/2008 5:09 AM PDT) + + + + + + | Component | Value | Ref Range | Performed | Pathologist | | | | | At | Signature | + + + + + + | WHITE CELL | 14.7 (H) | 4.4 - 11.0 K/cu | [facility] | | | COUNT | | mm | DEPARTMENT | | | | | | OF | | | | | | PATHOLOGY | | + + + + + + | RED CELL | 2.75 (L) | 4.00 - 5.20 | [facility] | | | COUNT | | M/cu mm | DEPARTMENT | | | | | | OF | | | | | | PATHOLOGY | | + + + + + + | HEMOGLOBIN | 8.1 (L) | 12.0 - 16.0 | [facility] | | | | | g/dL | DEPARTMENT | | | | | | OF | | | | | | PATHOLOGY | | + + + + + + | HEMATOCRIT | 24.2 (L) | 36.0 - 46.0 % | [facility] | | | | | | DEPARTMENT | | | | | | OF | | | | | | PATHOLOGY | | + + + + + + | MCV | 88.0 | 80.0 - 96.0 fL | [facility] | | | | | | DEPARTMENT | | | | | | OF | | | | | | PATHOLOGY | | + + + + + + | MCHC | 33.4 | 33.4 - 35.5 | [facility] | | | | | g/dL | DEPARTMENT | | | | | | OF | | | | | | PATHOLOGY | | + + + + + + | RDW | 15.9 (H) | 11.5 - 15.0 % | [facility] | | | | | | DEPARTMENT | | | | | | OF | | | | | | PATHOLOGY | | + + + + + + | PLATELET | 367 | 150 - 400 K/cu | [facility] | | | COUNT | | mm | DEPARTMENT | | | | | | OF | | | | | | PATHOLOGY | | + + + + + + + + | Specimen | + + | Blood - Blood | + + + + + + + | Performing | Address | City/State/Zipcode | Phone Number | | Organization | | | | + + + + + | [facility] | [address] | [place] [address] | | | PATHOLOGY | [address] | | | + + + + + | [facility] | [address] | [place] [address] | | | PATHOLOGY | [address] | | | + + + + + MAGNESIUM, PLASMA (11/13/2008 5:09 AM PDT) + +-------+ + + + | Component | Value | Ref Range | Performed | Pathologist | | | | | At | Signature | + +-------+ + + + | MAGNESIUM,P | 1.9 | 1.8 - 2.5 mg/dL | [facility] | | | LASMA | | | DEPARTMENT | | | | | | OF | | | | | | PATHOLOGY | | + +-------+ + + + + + | Specimen | + + | Blood - Blood | + + + + + + + | Performing | Address | City/State/Zipcode | Phone Number | | Organization | | | | + + + + + | [facility] | [address] | [place] [address] | | | PATHOLOGY | [address] | | | + + + + + | [facility] | [address] | [place] [address] | | | PATHOLOGY | [address] | | | + + + + + PHOSPHORUS, PLASMA (11/13/2008 5:09 AM PDT) + +-------+ + + + | Component | Value | Ref Range | Performed | Pathologist | | | | | At | Signature | + +-------+ + + + | PHOSPHORUS, | 3.5 | 2.4 - 4.7 mg/dL | [facility] | | | PLASMA | | | DEPARTMENT | | | (LAB) | | | OF | | | | | | PATHOLOGY | | + +-------+ + + + + + | Specimen | + + | Blood - Blood | + + + + + + + | Performing | Address | City/State/Zipcode | Phone Number | | Organization | | | | + + + + + | [facility] | [address] | [place] [address] | | | PATHOLOGY | [address] | | | + + + + + | [facility] | [address] | [place] [address] | | | PATHOLOGY | [address] | | | + + + + + BASIC METABOLIC SET (NA, K, CL, TCO2, BUN, CR, GLU, CA) (11/13/2008 5:09 AM PDT) + + + + + + | Component | Value | Ref Range | Performed | Pathologist | | | | | At | Signature | + + + + + + | GLUCOSE, | 163 (H) | 60 - 99 mg/dL | [facility] | | | PLASMA | | | DEPARTMENT | | | (LAB) | | | OF | | | | | | PATHOLOGY | | + + + + + + | BUN, PLASMA | 4 (L) | 6 - 20 mg/dL | [facility] | | | (LAB) | | | DEPARTMENT | | | | | | OF | | | | | | PATHOLOGY | | + + + + + + | CREATININE | 0.52 (L) | 0.60 - 1.10 | [facility] | | | PLASMA | | mg/dL | DEPARTMENT | | | (LAB) | | | OF | | | | | | PATHOLOGY | | + + + + + + | SODIUM, | 140 | 134 - 143 | [facility] | | | PLASMA | | mmol/L | DEPARTMENT | | | (LAB) | | | OF | | | | | | PATHOLOGY | | + + + + + + | POTASSIUM, | 3.3 (L) | 3.4 - 5.0 | [facility] | | | PLASMA | | mmol/L | DEPARTMENT | | | (LAB) | | | OF | | | | | | PATHOLOGY | | + + + + + + | CHLORIDE, | 104 | 97 - 108 mmol/L | [facility] | | | PLASMA | | | DEPARTMENT | | | (LAB) | | | OF | | | | | | PATHOLOGY | | + + + + + + | CALCIUM, | 7.9 (L) | 8.6 - 10.2 | [facility] | | | PLASMA | | mg/dL | DEPARTMENT | | | (LAB) | | | OF | | | | | | PATHOLOGY | | + + + + + + | TOTAL CO2, | 29 | 23 - 31 mmol/L | [facility] | | | PLASMA | | | DEPARTMENT | | | (LAB) | | | OF | | | | | | PATHOLOGY | | + + + + + + + + | Specimen | + + | Blood - Blood | + + + + + + + | Performing | Address | City/State/Zipcode | Phone Number | | Organization | | | | + + + + + | [facility] | [address] | [place] [address] | | | PATHOLOGY | [address] | | | + + + + + | [facility] | [address] [facility] | [place] [address] | | | PATHOLOGY | [address] | | | + + + + + CBC ONLY (11/12/2008 2:21 PM PDT) + + + + + + | Component | Value | Ref Range | Performed | Pathologist | | | | | At | Signature | + + + + + + | WHITE CELL | 16.0 (H) | 4.4 - 11.0 K/cu | [facility] | | | COUNT | | mm | DEPARTMENT | | | | | | OF | | | | | | PATHOLOGY | | + + + + + + | RED CELL | 2.95 (L) | 4.00 - 5.20 | [facility] | | | COUNT | | M/cu mm | DEPARTMENT | | | | | | OF | | | | | | PATHOLOGY | | + + + + + + | HEMOGLOBIN | 9.0 (L) | 12.0 - 16.0 | [facility] | | | | | g/dL | DEPARTMENT | | | | | | OF | | | | | | PATHOLOGY | | + + + + + + | HEMATOCRIT | 25.8 (L) | 36.0 - 46.0 % | [facility] | | | | | | DEPARTMENT | | | | | | OF | | | | | | PATHOLOGY | | + + + + + + | MCV | 87.6 | 80.0 - 96.0 fL | [facility] | | | | | | DEPARTMENT | | | | | | OF | | | | | | PATHOLOGY | | + + + + + + | MCHC | 34.8 | 33.4 - 35.5 | [facility] | | | | | g/dL | DEPARTMENT | | | | | | OF | | | | | | PATHOLOGY | | + + + + + + | RDW | 16.3 (H) | 11.5 - 15.0 % | [facility] | | | | | | DEPARTMENT | | | | | | OF | | | | | | PATHOLOGY | | + + + + + + | PLATELET | 332 | 150 - 400 K/cu | [facility] | | | COUNT | | mm | DEPARTMENT | | | | | | OF | | | | | | PATHOLOGY | | + + + + + + + + | Specimen | + + | Blood - Blood | + + + + + + + | Performing | Address | City/State/Zipcode | Phone Number | | Organization | | | | + + + + + | [facility] | [address] | [place] [address] | | | PATHOLOGY | [address] | | | + + + + + | [facility] | [facility] [address] | [place] [address] | | | PATHOLOGY | [address] | | | + + + + + CBC ONLY (11/12/2008 5:38 AM PDT) + + + + + + | Component | Value | Ref Range | Performed | Pathologist | | | | | At | Signature | + + + + + + | WHITE CELL | 18.8 (H) | 4.4 - 11.0 K/cu | [facility] | | | COUNT | | mm | DEPARTMENT | | | | | | OF | | | | | | PATHOLOGY | | + + + + + + | RED CELL | 3.01 (L) | 4.00 - 5.20 | [facility] | | | COUNT | | M/cu mm | DEPARTMENT | | | | | | OF | | | | | | PATHOLOGY | | + + + + + + | HEMOGLOBIN | 9.1 (L) | 12.0 - 16.0 | [facility] | | | | | g/dL | DEPARTMENT | | | | | | OF | | | | | | PATHOLOGY | | + + + + + + | HEMATOCRIT | 26.3 (L) | 36.0 - 46.0 % | [facility] | | | | | | DEPARTMENT | | | | | | OF | | | | | | PATHOLOGY | | + + + + + + | MCV | 87.4 | 80.0 - 96.0 fL | [facility] | | | | | | DEPARTMENT | | | | | | OF | | | | | | PATHOLOGY | | + + + + + + | MCHC | 34.6 | 33.4 - 35.5 | [facility] | | | | | g/dL | DEPARTMENT | | | | | | OF | | | | | | PATHOLOGY | | + + + + + + | RDW | 16.5 (H) | 11.5 - 15.0 % | [facility] | | | | | | DEPARTMENT | | | | | | OF | | | | | | PATHOLOGY | | + + + + + + | PLATELET | 318 | 150 - 400 K/cu | [facility] | | | COUNT | | mm | DEPARTMENT | | | | | | OF | | | | | | PATHOLOGY | | + + + + + + + + | Specimen | + + | Blood - Blood | + + + + + + + | Performing | Address | City/State/Zipcode | Phone Number | | Organization | | | | + + + + + | [facility] | [address] | [place] [address] | | | PATHOLOGY | [address] | | | + + + + + | [facility] | [address] | [place] [address] | | | PATHOLOGY | [address] | | | + + + + + MAGNESIUM, PLASMA (11/12/2008 5:38 AM PDT) + +-------+ + + + | Component | Value | Ref Range | Performed | Pathologist | | | | | At | Signature | + +-------+ + + + | MAGNESIUM,P | 1.8 | 1.8 - 2.5 mg/dL | [facility] | | | LASMA | | | DEPARTMENT | | | | | | OF | | | | | | PATHOLOGY | | + +-------+ + + + + + | Specimen | + + | Blood - Blood | + + + + + + + | Performing | Address | City/State/Zipcode | Phone Number | | Organization | | | | + + + + + | [facility] | [address] [address] | [place] [address] | | | PATHOLOGY | [address] | | | + + + + + | [facility] | [address] | [place] [address] | | | PATHOLOGY | [address] | | | + + + + + PHOSPHORUS, PLASMA (11/12/2008 5:38 AM PDT) + +-------+ + + + | Component | Value | Ref Range | Performed | Pathologist | | | | | At | Signature | + +-------+ + + + | PHOSPHORUS, | 3.3 | 2.4 - 4.7 mg/dL | [facility] | | | PLASMA | | | DEPARTMENT | | | (LAB) | | | OF | | | | | | PATHOLOGY | | + +-------+ + + + + + | Specimen | + + | Blood - Blood | + + + + + + + | Performing | Address | City/State/Zipcode | Phone Number | | Organization | | | | + + + + + | [facility] | [address] | [place] [address] | | | PATHOLOGY | [address] | | | + + + + + | [facility] | [address] | [place] [address] | | | PATHOLOGY | [address] | | | + + + + + BASIC METABOLIC SET (NA, K, CL, TCO2, BUN, CR, GLU, CA) (11/12/2008 5:38 AM PDT) + + + + + + | Component | Value | Ref Range | Performed | Pathologist | | | | | At | Signature | + + + + + + | GLUCOSE, | 227 (H) | 60 - 99 mg/dL | [facility] | | | PLASMA | | | DEPARTMENT | | | (LAB) | | | OF | | | | | | PATHOLOGY | | + + + + + + | BUN, PLASMA | 3 (L) | 6 - 20 mg/dL | [facility] | | | (LAB) | | | DEPARTMENT | | | | | | OF | | | | | | PATHOLOGY | | + + + + + + | CREATININE | 0.57 (L) | 0.60 - 1.10 | [facility] | | | PLASMA | | mg/dL | DEPARTMENT | | | (LAB) | | | OF | | | | | | PATHOLOGY | | + + + + + + | SODIUM, | 134 | 134 - 143 | [facility] | | | PLASMA | | mmol/L | DEPARTMENT | | | (LAB) | | | OF | | | | | | PATHOLOGY | | + + + + + + | POTASSIUM, | 3.9 | 3.4 - 5.0 | [facility] | | | PLASMA | | mmol/L | DEPARTMENT | | | (LAB) | | | OF | | | | | | PATHOLOGY | | + + + + + + | CHLORIDE, | 101 | 97 - 108 mmol/L | [facility] | | | PLASMA | | | DEPARTMENT | | | (LAB) | | | OF | | | | | | PATHOLOGY | | + + + + + + | CALCIUM, | 8.1 (L) | 8.6 - 10.2 | [facility] | | | PLASMA | | mg/dL | DEPARTMENT | | | (LAB) | | | OF | | | | | | PATHOLOGY | | + + + + + + | TOTAL CO2, | 27 | 23 - 31 mmol/L | [facility] | | | PLASMA | | | DEPARTMENT | | | (LAB) | | | OF | | | | | | PATHOLOGY | | + + + + + + + + | Specimen | + + | Blood - Blood | + + + + + + + | Performing | Address | City/State/Zipcode | Phone Number | | Organization | | | | + + + + + | [facility] | [address] | [place] [address] | | | PATHOLOGY | [address] | | | + + + + + | [facility] DEPARTMENT | [address] | [place] [address] | | | PATHOLOGY | [address] | | | + + + + + HEMATOCRIT (11/11/2008 4:28 PM PDT) + + + + + + | Component | Value | Ref Range | Performed | Pathologist | | | | | At | Signature | + + + + + + | HEMATOCRIT | 27.7 (L) | 36.0 - 46.0 % | [facility] | | | | | | DEPARTMENT | | | | | | OF | | | | | | PATHOLOGY | | + + + + + + + + | Specimen | + + | Blood - Blood | + + + + + + + | Performing | Address | City/State/Zipcode | Phone Number | | Organization | | | | + + + + + | [facility] | [address] | [place] [address] | | | PATHOLOGY | [address] | | | + + + + + | [facility] | [facility] | [place] [address] | | | PATHOLOGY | [address] | | | + + + + + HEMATOCRIT (11/11/2008 12:14 PM PDT) + + + + + + | Component | Value | Ref Range | Performed | Pathologist | | | | | At | Signature | + + + + + + | HEMATOCRIT | 27.0 (L) | 36.0 - 46.0 % | [facility] | | | | | | DEPARTMENT | | | | | | OF | | | | | | PATHOLOGY | | + + + + + + + + | Specimen | + + | Blood - Blood | + + + + + + + | Performing | Address | City/State/Zipcode | Phone Number | | Organization | | | | + + + + + | [facility] DEPARTMENT OF | [address] | [place] [address] | | | PATHOLOGY | [address] | | | + + + + + | [facility] | [address] | [place] [address] | | | PATHOLOGY | [address] | | | + + + + + TYPE AND SCREEN (11/11/2008 6:50 AM PDT) + + + + + + | Component | Value | Ref Range | Performed | Pathologist | | | | | At | Signature | + + + + + + | ABO GROUP | A | | [facility] | | | | | | DEPARTMENT | | | | | | OF | | | | | | PATHOLOGY | | + + + + + + | RH TYPE | Positive | | [facility] | | | | | | DEPARTMENT | | | | | | OF | | | | | | PATHOLOGY | | + + + + + + | Antibody | Negative | | [facility] | | | Screen | | | DEPARTMENT | | | | | | OF | | | | | | PATHOLOGY | | + + + + + + + + | Specimen | + + | Blood - Blood | + + + + + + + | Performing | Address | City/State/Zipcode | Phone Number | | Organization | | | | + + + + + | [facility] DEPARTMENT OF | [address] | [place] [address] | | | PATHOLOGY | [address] | | | + + + + + | [facility] | [address] | [place] [address] | | | PATHOLOGY | [address] | | | + + + + + PRODUCT- RED CELLS LEUKOREDUCED (11/11/2008 6:45 AM PDT) + + + + + + | Component | Value | Ref Range | Performed | Pathologist | | | | | At | Signature | + + + + + + | PRODUCT | -1 RED BLOOD | | [facility] | | | DESCRIPTION | CELLS,ADENINE-SALINE | | DEPARTMENT | | | | ADDED,LEUKOCYTES REDUCED | | OF | | | | | | PATHOLOGY | | + + + + + + | PRODUCT | [id number] | | [facility] | | | UNIT # | | | DEPARTMENT | | | | | | OF | | | | | | PATHOLOGY | | + + + + + + | UNIT ABO | A | | [facility] | | | | | | DEPARTMENT | | | | | | OF | | | | | | PATHOLOGY | | + + + + + + | UNIT RH | POS | | [facility] | | | | | | DEPARTMENT | | | | | | OF | | | | | | PATHOLOGY | | + + + + + + | STATUS OF | Presumed Transfused | | [facility] | | | UNIT | | | DEPARTMENT | | | | | | OF | | | | | | PATHOLOGY | | + + + + + + + + | Specimen | + + | | + + + + + + + | Performing | Address | City/State/Zipcode | Phone Number | | Organization | | | | + + + + + | [facility] | [address] | [place] [address] | | | PATHOLOGY | [address] | | | + + + + + | [facility] | [address] | [place] [address] | | | PATHOLOGY | [address] | | | + + + + + PRODUCT- RED CELLS LEUKOREDUCED (11/11/2008 6:45 AM PDT) + + + + + + | Component | Value | Ref Range | Performed | Pathologist | | | | | At | Signature | + + + + + + | PRODUCT | -1 RED BLOOD | | [facility] | | | DESCRIPTION | CELLS,ADENINE-SALINE | | DEPARTMENT | | | | ADDED,LEUKOCYTES REDUCED | | OF | | | | | | PATHOLOGY | | + + + + + + | PRODUCT | [id number] | | [facility] | | | UNIT # | | | DEPARTMENT | | | | | | OF | | | | | | PATHOLOGY | | + + + + + + | UNIT ABO | A | | [facility] | | | | | | DEPARTMENT | | | | | | OF | | | | | | PATHOLOGY | | + + + + + + | UNIT RH | POS | | [facility] | | | | | | DEPARTMENT | | | | | | OF | | | | | | PATHOLOGY | | + + + + + + | STATUS OF | Returned to Blood Bank | | [facility] | | | UNIT | | | DEPARTMENT | | | | | | OF | | | | | | PATHOLOGY | | + + + + + + + + | Specimen | + + | | + + + + + + + | Performing | Address | City/State/Zipcode | Phone Number | | Organization | | | | + + + + + | [facility] DE[facility]MENT OF | [address] | [place] [address] | | | PATHOLOGY | [address] | | | + + + + + | [facility] DEPARTMENT | [address] | [place] [address] | | | PATHOLOGY | [address] | | | + + + + + HEMATOCRIT (11/11/2008 6:00 AM PDT) + + + + + + | Component | Value | Ref Range | Performed | Pathologist | | | | | At | Signature | + + + + + + | HEMATOCRIT | 22.0 (L) | 36.0 - 46.0 % | [facility] | | | | | | DEPARTMENT | | | | | | OF | | | | | | PATHOLOGY | | + + + + + + + + | Specimen | + + | Blood - Blood | + + + + + + + | Performing | Address | City/State/Zipcode | Phone Number | | Organization | | | | + + + + + | [facility] | [facility] | [place] [address] | | | PATHOLOGY | [address] | | | + + + + + | [facility] | [facility] [address] | [place] [address] | | | PATHOLOGY | [address] | | | + + + + + MANUAL DIFFERENTIAL (11/11/2008 1:30 AM PDT) + +--------+ + + + | Component | Value | Ref Range | Performed | Pathologist | | | | | At | Signature | + +--------+ + + + | PLATELET | Normal | | [facility] | | | ESTIMATE | | | DEPARTMENT | | | | | | OF | | | | | | PATHOLOGY | | + +--------+ + + + + + | Specimen | + + | | + + + + + | Narrative | Performed At | + + + | * Corrected 11/11/08 03:19: GILLIANNEL COMMENTS, prev report: Slide | [facility] | | review pending. | DEPARTMENT OF | | | PATHOLOGY | + + + + + + + + | Performing | Address | City/State/Zipcode | Phone Number | | Organization | | | | + + + + + | [facility] | [address] | [place] [address] | | | PATHOLOGY | [address] | | | + + + + + | [facility] | [address] [place] [address] | [place] [address] | | | PATHOLOGY | [address] | | | + + + + + EXTENDED DIFF (11/11/2008 1:30 AM PDT) + +-------+ + + + | Component | Value | Ref Range | Performed | Pathologist | | | | | At | Signature | + +-------+ + + + | METAMYELOCY | 0 | % | [facility] | | | DOROTHEA % | | | DEPARTMENT | | | | | | OF | | | | | | PATHOLOGY | | + +-------+ + + + | MYELOCYTES | 0 | % | [facility] | | | % | | | DEPARTMENT | | | | | | OF | | | | | | PATHOLOGY | | + +-------+ + + + | NRBC | 0 | <1 /100 WBC | [facility] | | | | | | DEPARTMENT | | | | | | OF | | | | | | PATHOLOGY | | + +-------+ + + + | BANDS # | 0.2 | 0.0 - 1.1 | [facility] | | | | | | DEPARTMENT | | | | | | OF | | | | | | PATHOLOGY | | + +-------+ + + + | BANDS % | 1 | <11 % | [facility] | | | | | | DEPARTMENT | | | | | | OF | | | | | | PATHOLOGY | | + +-------+ + + + | ATYPICAL | 0 | | [facility] | | | CELL % | | | DEPARTMENT | | | | | | OF | | | | | | PATHOLOGY | | + +-------+ + + + | PROMYELOCYT | 0 | % | [facility] | | | ES % | | | DEPARTMENT | | | | | | OF | | | | | | PATHOLOGY | | + +-------+ + + + + + | Specimen | + + | | + + + + + | Narrative | Performed At | + + + | * Corrected 11/11/08 03:19: HUI COMMENTS, prev report: Slide | [facility] | | review pending. | DEPARTMENT OF | | | PATHOLOGY | + + + + + + + + | Performing | Address | City/State/Zipcode | Phone Number | | Organization | | | | + + + + + | [facility] DE[facility]MENT OF | [address] | [place] [address] | | | PATHOLOGY | [address] | | | + + + + + | [facility] DE[facility]MENT OF | [address] | [place] [address] | | | PATHOLOGY | [address] | | | + + + + + DIFFERENTIAL (11/11/2008 1:30 AM PDT) + + + + + + | Component | Value | Ref Range | Performed | Pathologist | | | | | At | Signature | + + + + + + | NEUTROPHIL | 80 (H) | 50 - 70 % | [facility] | | | % | | | DEPARTMENT | | | | | | OF | | | | | | PATHOLOGY | | + + + + + + | LYMPHOCYTE | 8 (L) | 18 - 42 % | [facility] | | | % | | | DEPARTMENT | | | | | | OF | | | | | | PATHOLOGY | | + + + + + + | MONOCYTE % | 7 | 2 - 8 % | [facility] | | | | | | DEPARTMENT | | | | | | OF | | | | | | PATHOLOGY | | + + + + + + | EOS % | 4 (H) | 1 - 3 % | [facility] | | | | | | DEPARTMENT | | | | | | OF | | | | | | PATHOLOGY | | + + + + + + | BASO % | 0 | <3 % | [facility] | | | | | | DEPARTMENT | | | | | | OF | | | | | | PATHOLOGY | | + + + + + + | NEUTROPHIL | 13.7 (H) | 1.8 - 7.7 K/cu | [facility] | | | # | | mm | DEPARTMENT | | | | | | OF | | | | | | PATHOLOGY | | + + + + + + | LYMPHOCYTE | 1.4 | 1.0 - 4.8 K/cu | [facility] | | | # | | mm | DEPARTMENT | | | | | | OF | | | | | | PATHOLOGY | | + + + + + + | MONOCYTE # | 1.2 (H) | <0.9 K/cu mm | [facility] | | | | | | DEPARTMENT | | | | | | OF | | | | | | PATHOLOGY | | + + + + + + | EOS # | 0.7 (H) | <0.6 K/cu mm | [facility] | | | | | | DEPARTMENT | | | | | | OF | | | | | | PATHOLOGY | | + + + + + + | BASO # | 0.0 | <0.3 | [facility] | | | | | | DEPARTMENT | | | | | | OF | | | | | | PATHOLOGY | | + + + + + + + + | Specimen | + + | | + + + + + | Narrative | Performed At | + + + | * Corrected 11/11/08 03:19: GILLIANNEL COMMENTS, prev report: Slide | [facility] | | review pending. | DEPARTMENT OF | | | PATHOLOGY | + + + + + + + + | Performing | Address | City/State/Zipcode | Phone Number | | Organization | | | | + + + + + | [facility] DEPARTMENT OF | [address] | [place] [address] | | | PATHOLOGY | [address] | | | + + + + + | [facility] DE[facility]MENT OF | [address] | [place] [address] | | | PATHOLOGY | [address] | | | + + + + + MAGNESIUM, PLASMA (11/11/2008 1:30 AM PDT) + +-------+ + + + | Component | Value | Ref Range | Performed | Pathologist | | | | | At | Signature | + +-------+ + + + | MAGNESIUM,P | 1.8 | 1.8 - 2.5 mg/dL | [facility] | | | LASMA | | | DEPARTMENT | | | | | | OF | | | | | | PATHOLOGY | | + +-------+ + + + + + | Specimen | + + | Blood - Blood | + + + + + + + | Performing | Address | City/State/Zipcode | Phone Number | | Organization | | | | + + + + + | [facility] DE[facility]MENT [facility] | [facility] | [place] [address] | | | PATHOLOGY | [address] | | | + + + + + | [facility] DE[facility]MENT OF | [address] | [place] [address] | | | PATHOLOGY | [address] | | | + + + + + PHOSPHORUS, PLASMA (11/11/2008 1:30 AM PDT) + +-------+ + + + | Component | Value | Ref Range | Performed | Pathologist | | | | | At | Signature | + +-------+ + + + | PHOSPHORUS, | 3.0 | 2.4 - 4.7 mg/dL | [facility] | | | PLASMA | | | DEPARTMENT | | | (LAB) | | | OF | | | | | | PATHOLOGY | | + +-------+ + + + + + | Specimen | + + | Blood - Blood | + + + + + + + | Performing | Address | City/State/Zipcode | Phone Number | | Organization | | | | + + + + + | [facility] DE[facility]MENT [facility] | [address] | [place] [address] | | | PATHOLOGY | [address] | | | + + + + + | [facility] DE[facility]MENT [facility] | [address] | [place] [address] | | | PATHOLOGY | [address] | | | + + + + + BASIC METABOLIC SET (NA, K, CL, TCO2, BUN, CR, GLU, CA) (11/11/2008 1:30 AM PDT) + +---------+ + + + | Component | Value | Ref Range | Performed | Pathologist | | | | | At | Signature | + +---------+ + + + | GLUCOSE, | 151 (H) | 60 - 99 mg/dL | [facility] | | | PLASMA | | | DEPARTMENT | | | (LAB) | | | OF | | | | | | PATHOLOGY | | + +---------+ + + + | BUN, PLASMA | 4 (L) | 6 - 20 mg/dL | [facility] | | | (LAB) | | | DEPARTMENT | | | | | | OF | | | | | | PATHOLOGY | | + +---------+ + + + | CREATININE | 0.62 | 0.60 - 1.10 | [facility] | | | PLASMA | | mg/dL | DEPARTMENT | | | (LAB) | | | OF | | | | | | PATHOLOGY | | + +---------+ + + + | SODIUM, | 139 | 134 - 143 | [facility] | | | PLASMA | | mmol/L | DEPARTMENT | | | (LAB) | | | OF | | | | | | PATHOLOGY | | + +---------+ + + + | POTASSIUM, | 4.1 | 3.4 - 5.0 | [facility] | | | PLASMA | | mmol/L | DEPARTMENT | | | (LAB) | | | OF | | | | | | PATHOLOGY | | + +---------+ + + + | CHLORIDE, | 110 (H) | 97 - 108 mmol/L | [facility] | | | PLASMA | | | DEPARTMENT | | | (LAB) | | | OF | | | | | | PATHOLOGY | | + +---------+ + + + | CALCIUM, | 8.2 (L) | 8.6 - 10.2 | [facility] | | | PLASMA | | mg/dL | DEPARTMENT | | | (LAB) | | | OF | | | | | | PATHOLOGY | | + +---------+ + + + | TOTAL CO2, | 26 | 23 - 31 mmol/L | [facility] | | | PLASMA | | | DEPARTMENT | | | (LAB) | | | OF | | | | | | PATHOLOGY | | + +---------+ + + + + + | Specimen | + + | Blood - Blood | + + + + + + + | Performing | Address | City/State/Zipcode | Phone Number | | Organization | | | | + + + + + | [facility] DE[facility]MENT [facility] | [address] | [place] [address] | | | PATHOLOGY | [address] | | | + + + + + | [facility] | [address] | [place] [address] | | | PATHOLOGY | [address] | | | + + + + + CBC, WITH DIFFERENTIAL (11/11/2008 1:30 AM PDT) + + + + + + | Component | Value | Ref Range | Performed | Pathologist | | | | | At | Signature | + + + + + + | WHITE CELL | 17.1 (H) | 4.4 - 11.0 K/cu | [facility] | | | COUNT | | mm | DEPARTMENT | | | | | | OF | | | | | | PATHOLOGY | | + + + + + + | RED CELL | 2.54 (L) | 4.00 - 5.20 | [facility] | | | COUNT | | M/cu mm | DEPARTMENT | | | | | | OF | | | | | | PATHOLOGY | | + + + + + + | HEMOGLOBIN | 7.3 (L) | 12.0 - 16.0 | [facility] | | | | | g/dL | DEPARTMENT | | | | | | OF | | | | | | PATHOLOGY | | + + + + + + | HEMATOCRIT | 21.8 (L) | 36.0 - 46.0 % | [facility] | | | | | | DEPARTMENT | | | | | | OF | | | | | | PATHOLOGY | | + + + + + + | MCV | 85.9 | 80.0 - 96.0 fL | [facility] | | | | | | DEPARTMENT | | | | | | OF | | | | | | PATHOLOGY | | + + + + + + | MCHC | 33.3 (L) | 33.4 - 35.5 | [facility] | | | | | g/dL | DEPARTMENT | | | | | | OF | | | | | | PATHOLOGY | | + + + + + + | RDW | 17.2 (H) | 11.5 - 15.0 % | [facility] | | | | | | DEPARTMENT | | | | | | OF | | | | | | PATHOLOGY | | + + + + + + | PLATELET | 231 | 150 - 400 K/cu | [facility] | | | COUNT | | mm | DEPARTMENT | | | | | | OF | | | | | | PATHOLOGY | | + + + + + + | CBC | Slide review pending. | | [facility] | | | COMMENTS | | | DEPARTMENT | | | | | | OF | | | | | | PATHOLOGY | | + + + + + + | DIFF | Final Manual | | [facility] | | | COMMENTS | Differential Report. | | DEPARTMENT | | | | | | OF | | | | | | PATHOLOGY | | + + + + + + | RBC | Anisocytosis | | [facility] | | | MORPHOLOGY | + | | DEPARTMENT | | | | | | OF | | | | | | PATHOLOGY | | | | | | | | | | | | | | | | | | | | | | | | | | | | | | | | | | | | | | | | | | | | | | | | | | | | | | | | | | Macrocytosis | | | | | | + | | | | | | | | | | | | | | | | | | | | | | | | | | | | | | | | | | | | | | | | | | | | | | | | | | | | | | | | | | | | | | | | | | | | | | | | Microcytosis | | | | | | + | | | | | | | | | | | | | | | | | | | | | | | | | | | | | | | | | | | | | | | | | | | | | | | | | | | | | | | | | | | | | | | | | | | | | | | | Polychromasia + | | | | + + + + + + + + | Specimen | + + | Blood - Blood | + + + + + | Narrative | Performed At | + + + | * Corrected 11/11/08 03:19: HUI MITCHELL, prev report: Trung | [facility] | | review pending. | DEPARTMENT OF | | | PATHOLOGY | + + + + + + + + | Performing | Address | City/State/Zipcode | Phone Number | | Organization | | | | + + + + + | [facility] DE[facility]MENT [facility] | [facility] | [place] [address] | | | PATHOLOGY | [address] | | | + + + + + | [facility] DE[facility]MENT [facility] | [address] | [place] [address] | | | PATHOLOGY | [address] | | | + + + + + HEMATOCRIT (11/10/2008 9:30 PM PDT) + + + + + + | Component | Value | Ref Range | Performed | Pathologist | | | | | At | Signature | + + + + + + | HEMATOCRIT | 22.5 (L) | 36.0 - 46.0 % | [facility] | | | | | | DEPARTMENT | | | | | | OF | | | | | | PATHOLOGY | | + + + + + + + + | Specimen | + + | Blood - Blood | + + + + + + + | Performing | Address | City/State/Zipcode | Phone Number | | Organization | | | | + + + + + | [facility] | [address] | [place] [address] | | | PATHOLOGY | [address] | | | + + + + + | [facility] | [address] | [place] [address] | | | PATHOLOGY | [address] | | | + + + + + HEMATOCRIT (11/10/2008 5:00 PM PDT) + + + + + + | Component | Value | Ref Range | Performed | Pathologist | | | | | At | Signature | + + + + + + | HEMATOCRIT | 23.1 (L) | 36.0 - 46.0 % | [facility] | | | | | | DEPARTMENT | | | | | | OF | | | | | | PATHOLOGY | | + + + + + + + + | Specimen | + + | Blood - Blood | + + + + + + + | Performing | Address | City/State/Zipcode | Phone Number | | Organization | | | | + + + + + | [facility]MENT [facility] | [address] | [place] [address] | | | PATHOLOGY | [address] | | | + + + + + | [facility] DE[facility]MENT [facility] | [address] | [place] [address] | | | PATHOLOGY | [address] | | | + + + + + HEMATOCRIT (11/10/2008 12:12 PM PDT) + + + + + + | Component | Value | Ref Range | Performed | Pathologist | | | | | At | Signature | + + + + + + | HEMATOCRIT | 23.2 (L) | 36.0 - 46.0 % | [facility] | | | | | | DEPARTMENT | | | | | | OF | | | | | | PATHOLOGY | | + + + + + + + + | Specimen | + + | Blood - Blood | + + + + + + + | Performing | Address | City/State/Zipcode | Phone Number | | Organization | | | | + + + + + | [facility] DE[facility]MENT | [address] | [place] [address] | | | PATHOLOGY | [address] | | | + + + + + | [facility] | [address] | [place] [address] | | | PATHOLOGY | [address] | | | + + + + + US PORTABLE TRANSVAGINAL (11/10/2008 11:55 AM PDT) + + + + + + | Component | Value | Ref Range | Performed | Pathologist | | | | | At | Signature | + + + + + + | US PORTABLE | STUDY: TRANSABDOMINAL | | | | | | AND TRANSVAGINAL PELVIC | | | | | TRANSVAGINA | ULTRASOUND | | | | | L | 11/10/08COMPARISONS: | | | | | | NoneHISTORY: | | | | | | Menorrhagia, possible | | | | | | prolapsed | | | | | | fibroidTECHNIQUE:Transab | | | | | | dominal followed by | | | | | | transvaginal ultrasound | | | | | | was performed tofully | | | | | | evaluate the pelvic | | | | | | structures.FINDINGS:Inte | | | | | | rpretation of this study | | | | | | is limited by patient | | | | | | scanningcharacteristics. | | | | | | A Jefferson catheter is | | | | | | present within the | | | | | | urinarybladder. The | | | | | | uterus measures | | | | | | approximately 11.0 x 6.4 | | | | | | x 6.8 cm.Within the | | | | | | uterine fundus, there is | | | | | | a hypoechoic 3.3 x 5.2 | | | | | | x 6.1 cmfundal | | | | | | fibroid. There is a | | | | | | large heterogeneously | | | | | | echoic fibroidwithin the | | | | | | lower uterine segment | | | | | | which measures 7.8 x 6.7 | | | | | | x 7.0 cm.There appears | | | | | | to be normal cervix | | | | | | abutting the | | | | | | fibroid. This | | | | | | fibroidobscures | | | | | | visualization of the | | | | | | remainder of the uterus | | | | | | and adnexa onthe | | | | | | transvaginal | | | | | | images.IMPRESSION:1. | | | | | | Technically limited | | | | | | study due to patient | | | | | | scanning | | | | | | characteristics.2. Fi | | | | | | broid uterus, with a | | | | | | large lower uterine | | | | | | segment fibroid asabove | | | | | | and smaller fundal | | | | | | fibroid.I have | | | | | | personally viewed this | | | | | | procedure/exam and | | | | | | reviewed this | | | | | | report.Author: KATIE | | | | | | Aguilar CADENAReviewer: | | | | | | KRISTIE OSHEA M.D.STATUS | | | | | | FINAL / Dr. FLOWERS | | | | | | DORIESTATUS FINAL / | | | | | | KRISTIE HAYES RESULT | | | | | | MODIFIED / Dr. FLOWERS | | | | | | DORIESTAT PENDING | | | | | | FINAL APPROVAL / | | | | | | KATIE MOSLEYESTATUS | | | | | | PRELIMINARY - UNSIGNED / | | | | | | Dr. KATIE CADENA | | | | + + + + + + + + | Specimen | + + | | + + + +---------+ + + | Performing | Address | City/State/Zipcode | Phone Number | | Organization | | | | + +---------+ + + | [facility] | | | | | RADIOLOGY | | | | + +---------+ + + US PORTABLE PELVIS COMPLETE (11/10/2008 11:30 AM PDT) + + + + + + | Component | Value | Ref Range | Performed | Pathologist | | | | | At | Signature | + + + + + + | US PORTABLE | STUDY: TRANSABDOMINAL | | | | | PELVIS | AND TRANSVAGINAL PELVIC | | | | | COMPLETE | ULTRASOUND | | | | | | 11/10/08COMPARISONS: | | | | | | NoneHISTORY: | | | | | | Menorrhagia, possible | | | | | | prolapsed | | | | | | fibroidTECHNIQUE:Transab | | | | | | dominal followed by | | | | | | transvaginal ultrasound | | | | | | was performed tofully | | | | | | evaluate the pelvic | | | | | | structures.FINDINGS:Inte | | | | | | rpretation of this study | | | | | | is limited by patient | | | | | | scanningcharacteristics. | | | | | | A Jefferson catheter is | | | | | | present within the | | | | | | urinarybladder. The | | | | | | uterus measures | | | | | | approximately 11.0 x 6.4 | | | | | | x 6.8 cm.Within the | | | | | | uterine fundus, there is | | | | | | a hypoechoic 3.3 x 5.2 | | | | | | x 6.1 cmfundal | | | | | | fibroid. There is a | | | | | | large heterogeneously | | | | | | echoic fibroidwithin the | | | | | | lower uterine segment | | | | | | which measures 7.8 x 6.7 | | | | | | x 7.0 cm.There appears | | | | | | to be normal cervix | | | | | | abutting the | | | | | | fibroid. This | | | | | | fibroidobscures | | | | | | visualization of the | | | | | | remainder of the uterus | | | | | | and adnexa onthe | | | | | | transvaginal | | | | | | images.IMPRESSION:1. | | | | | | Technically limited | | | | | | study due to patient | | | | | | scanning | | | | | | characteristics.2. Fi | | | | | | broid uterus, with a | | | | | | large lower uterine | | | | | | segment fibroid asabove | | | | | | and smaller fundal | | | | | | fibroid.I have | | | | | | personally viewed this | | | | | | procedure/exam and | | | | | | reviewed this | | | | | | report.Author: KATIE | | | | | | Aguilar CADENAReviewer: | | | | | | KRISTIE OSHEA M.D.STATUS | | | | | | FINAL / Dr. KRISTIE | | | | | | DOBOSSTATUS FINAL / Dr. | | | | | | KRISTIE DORIESTATUS RESULT | | | | | | MODIFIED / Dr. FLOWERS | | | | | | ABIGAIL PENDING | | | | | | FINAL APPROVAL / | | | | | | KATIE RUBI | | | | | | PRELIMINARY - UNSIGNED / | | | | | | Dr. KATIE CADENA | | | | + + + + + + + + | Specimen | + + | | + + + +---------+ + + | Performing | Address | City/State/Zipcode | Phone Number | | Organization | | | | + +---------+ + + | [facility] | | | | | RADIOLOGY | | | | + +---------+ + + HEMATOCRIT (11/10/2008 8:15 AM PDT) + + + + + + | Component | Value | Ref Range | Performed | Pathologist | | | | | At | Signature | + + + + + + | HEMATOCRIT | 23.6 (L) | 36.0 - 46.0 % | [facility] | | | | | | DEPARTMENT | | | | | | OF | | | | | | PATHOLOGY | | + + + + + + + + | Specimen | + + | Blood - Blood | + + + + + + + | Performing | Address | City/State/Zipcode | Phone Number | | Organization | | | | + + + + + | [facility] | [id number] | [place] [address] | | | PATHOLOGY | [address] | | | + + + + + | [facility] | [address] | [place] [address] | | | PATHOLOGY | [address] | | | + + + + + DIFFERENTIAL (11/10/2008 4:00 AM PDT) + + + + + + | Component | Value | Ref Range | Performed | Pathologist | | | | | At | Signature | + + + + + + | NEUTROPHIL | 84 (H) | 50 - 70 % | [facility] | | | % | | | DEPARTMENT | | | | | | OF | | | | | | PATHOLOGY | | + + + + + + | LYMPHOCYTE | 13 (L) | 18 - 42 % | [facility] | | | % | | | DEPARTMENT | | | | | | OF | | | | | | PATHOLOGY | | + + + + + + | MONOCYTE % | 3 | 2 - 8 % | [facility] | | | | | | DEPARTMENT | | | | | | OF | | | | | | PATHOLOGY | | + + + + + + | EOS % | 0 (L) | 1 - 3 % | [facility] | | | | | | DEPARTMENT | | | | | | OF | | | | | | PATHOLOGY | | + + + + + + | BASO % | 0 | <3 % | [facility] | | | | | | DEPARTMENT | | | | | | OF | | | | | | PATHOLOGY | | + + + + + + | NEUTROPHIL | 13.9 (H) | 1.8 - 7.7 K/cu | [facility] | | | # | | mm | DEPARTMENT | | | | | | OF | | | | | | PATHOLOGY | | + + + + + + | LYMPHOCYTE | 2.2 | 1.0 - 4.8 K/cu | [facility] | | | # | | mm | DEPARTMENT | | | | | | OF | | | | | | PATHOLOGY | | + + + + + + | MONOCYTE # | 0.5 | <0.9 K/cu mm | [facility] | | | | | | DEPARTMENT | | | | | | OF | | | | | | PATHOLOGY | | + + + + + + | EOS # | 0.0 | <0.6 K/cu mm | [facility] | | | | | | DEPARTMENT | | | | | | OF | | | | | | PATHOLOGY | | + + + + + + | BASO # | 0.0 | <0.3 | [facility] | | | | | | DEPARTMENT | | | | | | OF | | | | | | PATHOLOGY | | + + + + + + + + | Specimen | + + | | + + + + + + + | Performing | Address | City/State/Zipcode | Phone Number | | Organization | | | | + + + + + | [facility] | [address] | [place] [address] | | | PATHOLOGY | [address] | | | + + + + + | [facility] | [facility] [facility] | [place] [address] | | | PATHOLOGY | [address] | | | + + + + + CBC, WITH DIFFERENTIAL (11/10/2008 4:00 AM PDT) + + + + + + | Component | Value | Ref Range | Performed | Pathologist | | | | | At | Signature | + + + + + + | WHITE CELL | 16.6 (H) | 4.4 - 11.0 K/cu | [facility] | | | COUNT | | mm | DEPARTMENT | | | | | | OF | | | | | | PATHOLOGY | | + + + + + + | RED CELL | 2.52 (L) | 4.00 - 5.20 | [facility] | | | COUNT | | M/cu mm | DEPARTMENT | | | | | | OF | | | | | | PATHOLOGY | | + + + + + + | HEMOGLOBIN | 7.4 (L) | 12.0 - 16.0 | [facility] | | | | | g/dL | DEPARTMENT | | | | | | OF | | | | | | PATHOLOGY | | + + + + + + | HEMATOCRIT | 21.8 (L) | 36.0 - 46.0 % | [facility] | | | | | | DEPARTMENT | | | | | | OF | | | | | | PATHOLOGY | | + + + + + + | MCV | 86.7 | 80.0 - 96.0 fL | [facility] | | | | | | DEPARTMENT | | | | | | OF | | | | | | PATHOLOGY | | + + + + + + | MCHC | 33.9 | 33.4 - 35.5 | [facility] | | | | | g/dL | DEPARTMENT | | | | | | OF | | | | | | PATHOLOGY | | + + + + + + | RDW | 16.4 (H) | 11.5 - 15.0 % | [facility] | | | | | | DEPARTMENT | | | | | | OF | | | | | | PATHOLOGY | | + + + + + + | PLATELET | 218 | 150 - 400 K/cu | [facility] | | | COUNT | | mm | DEPARTMENT | | | | | | OF | | | | | | PATHOLOGY | | + + + + + + + + | Specimen | + + | Blood - Blood | + + + + + + + | Performing | Address | City/State/Zipcode | Phone Number | | Organization | | | | + + + + + | [facility] | [address] | [place] [address] | | | PATHOLOGY | [address] | | | + + + + + | [facility] | [address] | [place] [address] | | | PATHOLOGY | [address] | | | + + + + + APTT (ACT. PART. THROMBO TIME) (11/10/2008 3:00 AM PDT) + + + + + + | Component | Value | Ref Range | Performed | Pathologist | | | | | At | Signature | + + + + + + | APTT | 31.1Comment: | 26.0 - 36.0 | [facility] | | | | APTT | seconds | DEPARTMENT | | | | Therapeutic | | OF | | | | Range | | PATHOLOGY | | | | | | | | | | (75-120) | | | | | | sec | | | | | | Heparin levels of | | | | | | 0.35-0.7 U/mL | | | | + + + + + + + + | Specimen | + + | Blood - Blood | + + + + + + + | Performing | Address | City/State/Zipcode | Phone Number | | Organization | | | | + + + + + | [facility] | [address] | [place] [address] | | | PATHOLOGY | [address] | | | + + + + + | [facility] | [address] [place] [address] [address] | [place] [address] | | | PATHOLOGY | [address] | | | + + + + + MAGNESIUM, PLASMA (11/10/2008 3:00 AM PDT) + +-------+ + + + | Component | Value | Ref Range | Performed | Pathologist | | | | | At | Signature | + +-------+ + + + | MAGNESIUM,P | 2.2 | 1.8 - 2.5 mg/dL | [facility] | | | LASMA | | | DEPARTMENT | | | | | | OF | | | | | | PATHOLOGY | | + +-------+ + + + + + | Specimen | + + | Blood - Blood | + + + + + + + | Performing | Address | City/State/Zipcode | Phone Number | | Organization | | | | + + + + + | [facility] | [address] | [place] [address] | | | PATHOLOGY | [address] | | | + + + + + | [facility] | [address] | [place] [address] | | | PATHOLOGY | [address] | | | + + + + + PHOSPHORUS, PLASMA (11/10/2008 3:00 AM PDT) + +---------+ + + + | Component | Value | Ref Range | Performed | Pathologist | | | | | At | Signature | + +---------+ + + + | PHOSPHORUS, | 2.2 (L) | 2.4 - 4.7 mg/dL | [facility] | | | PLASMA | | | DEPARTMENT | | | (LAB) | | | OF | | | | | | PATHOLOGY | | + +---------+ + + + + + | Specimen | + + | Blood - Blood | + + + + + + + | Performing | Address | City/State/Zipcode | Phone Number | | Organization | | | | + + + + + | [facility] | [facility] | [place] [address] | | | PATHOLOGY | [address] | | | + + + + + | [facility] | [facility] | [place] [address] | | | PATHOLOGY | [address] | | | + + + + + BASIC METABOLIC SET (NA, K, CL, TCO2, BUN, CR, GLU, CA) (11/10/2008 3:00 AM PDT) + + + + + + | Component | Value | Ref Range | Performed | Pathologist | | | | | At | Signature | + + + + + + | GLUCOSE, | 67 | 60 - 99 mg/dL | [facility] | | | PLASMA | | | DEPARTMENT | | | (LAB) | | | OF | | | | | | PATHOLOGY | | + + + + + + | BUN, PLASMA | 4 (L) | 6 - 20 mg/dL | [facility] | | | (LAB) | | | DEPARTMENT | | | | | | OF | | | | | | PATHOLOGY | | + + + + + + | CREATININE | 0.54 (L) | 0.60 - 1.10 | [facility] | | | PLASMA | | mg/dL | DEPARTMENT | | | (LAB) | | | OF | | | | | | PATHOLOGY | | + + + + + + | SODIUM, | 139 | 134 - 143 | [facility] | | | PLASMA | | mmol/L | DEPARTMENT | | | (LAB) | | | OF | | | | | | PATHOLOGY | | + + + + + + | POTASSIUM, | 3.5 | 3.4 - 5.0 | [facility] | | | PLASMA | | mmol/L | DEPARTMENT | | | (LAB) | | | OF | | | | | | PATHOLOGY | | + + + + + + | CHLORIDE, | 113 (H) | 97 - 108 mmol/L | [facility] | | | PLASMA | | | DEPARTMENT | | | (LAB) | | | OF | | | | | | PATHOLOGY | | + + + + + + | CALCIUM, | 7.5 (L) | 8.6 - 10.2 | [facility] | | | PLASMA | | mg/dL | DEPARTMENT | | | (LAB) | | | OF | | | | | | PATHOLOGY | | + + + + + + | TOTAL CO2, | 22 (L) | 23 - 31 mmol/L | [facility] | | | PLASMA | | | DEPARTMENT | | | (LAB) | | | OF | | | | | | PATHOLOGY | | + + + + + + + + | Specimen | + + | Blood - Blood | + + + + + + + | Performing | Address | City/State/Zipcode | Phone Number | | Organization | | | | + + + + + | [facility] | [address] | [place] [address] | | | PATHOLOGY | [address] | | | + + + + + | [facility] | [address] | [place] [address] | | | PATHOLOGY | [address] | | | + + + + + PRODUCT- RED CELLS LEUKOREDUCED (11/09/2008 10:45 PM PDT) + + + + + + | Component | Value | Ref Range | Performed | Pathologist | | | | | At | Signature | + + + + + + | PRODUCT | -1 RED BLOOD | | [facility] | | | DESCRIPTION | CELLS,ADENINE-SALINE | | DEPARTMENT | | | | ADDED,LEUKOCYTES REDUCED | | OF | | | | | | PATHOLOGY | | + + + + + + | PRODUCT | [id number] | | [facility] | | | UNIT # | | | DEPARTMENT | | | | | | OF | | | | | | PATHOLOGY | | + + + + + + | UNIT ABO | A | | [facility] | | | | | | DEPARTMENT | | | | | | OF | | | | | | PATHOLOGY | | + + + + + + | UNIT RH | POS | | [facility] | | | | | | DEPARTMENT | | | | | | OF | | | | | | PATHOLOGY | | + + + + + + | STATUS OF | Presumed Transfused | | [facility] | | | UNIT | | | DEPARTMENT | | | | | | OF | | | | | | PATHOLOGY | | + + + + + + + + | Specimen | + + | | + + + + + + + | Performing | Address | City/State/Zipcode | Phone Number | | Organization | | | | + + + + + | [facility] | [address] | [place] [address] | | | PATHOLOGY | [address] | | | + + + + + | [facility] | [facility] | [place] [address] | | | PATHOLOGY | [address] | | | + + + + + HEMATOCRIT (11/09/2008 8:00 PM PDT) + + + + + + | Component | Value | Ref Range | Performed | Pathologist | | | | | At | Signature | + + + + + + | HEMATOCRIT | 19.9 (*) | 36.0 - 46.0 % | [facility] | | | | | | DEPARTMENT | | | | | | OF | | | | | | PATHOLOGY | | + + + + + + | CBC | Hematocrit Phoned. | | [facility] | | | COMMENTS | Readback. | | DEPARTMENT | | | | | | OF | | | | | | PATHOLOGY | | + + + + + + + + | Specimen | + + | Blood - Blood | + + + + + + + | Performing | Address | City/State/Zipcode | Phone Number | | Organization | | | | + + + + + | [facility] | [address] | [place] [address] | | | PATHOLOGY | [address] | | | + + + + + | [facility] | [address] | [place] [address] | | | PATHOLOGY | [address] | | | + + + + + HEMATOCRIT (11/09/2008 4:00 PM PDT) + + + + + + | Component | Value | Ref Range | Performed | Pathologist | | | | | At | Signature | + + + + + + | HEMATOCRIT | Not Recd | 36.0 - 46.0 % | [facility] | | | | | | DEPARTMENT | | | | | | OF | | | | | | PATHOLOGY | | + + + + + + + + | Specimen | + + | Blood - Blood | + + + + + + + | Performing | Address | City/State/Zipcode | Phone Number | | Organization | | | | + + + + + | [facility] | [facility] | [place] [address] | | | PATHOLOGY | [address] | | | + + + + + | [facility] | [address] | [place] [address] | | | PATHOLOGY | [address] | | | + + + + + HEMATOCRIT (11/09/2008 1:34 PM PDT) + + + + + + | Component | Value | Ref Range | Performed | Pathologist | | | | | At | Signature | + + + + + + | HEMATOCRIT | 21.6 (L) | 36.0 - 46.0 % | [facility] | | | | | | DEPARTMENT | | | | | | OF | | | | | | PATHOLOGY | | + + + + + + + + | Specimen | + + | Blood - Blood | + + + + + + + | Performing | Address | City/State/Zipcode | Phone Number | | Organization | | | | + + + + + | [facility] | [address] | [place] [address] | | | PATHOLOGY | [address] | | | + + + + + | [facility] | [address] | [place] [address] | | | PATHOLOGY | [address] | | | + + + + + HEMATOCRIT (11/09/2008 8:12 AM PDT) + + + + + + | Component | Value | Ref Range | Performed | Pathologist | | | | | At | Signature | + + + + + + | HEMATOCRIT | 22.7 (L) | 36.0 - 46.0 % | [facility] | | | | | | DEPARTMENT | | | | | | OF | | | | | | PATHOLOGY | | + + + + + + + + | Specimen | + + | Blood - Blood | + + + + + + + | Performing | Address | City/State/Zipcode | Phone Number | | Organization | | | | + + + + + | [facility] | [address] | [place] [address] | | | PATHOLOGY | [address] | | | + + + + + | [facility] | [address] | [place] [address] | | | PATHOLOGY | [address] | | | + + + + + COAGULOPATHY PANEL (INR,APTT,FIBRINOGEN) (11/09/2008 6:46 AM PDT) + + + + + + | Component | Value | Ref Range | Performed | Pathologist | | | | | At | Signature | + + + + + + | INR | 1.28 (H)Comment: | 0.90 - 1.20 INR | [facility] | | | | INR | | DEPARTMENT | | | | Therapeutic ranges for | | OF | | | | full | | PATHOLOGY | | | | anticoagulation: | | | | | | INR for Venous | | | | | | Thromboembolism | | | | | | | | | | | | (2.0-3.0) | | | | | | INR INR for | | | | | | most patients with mech. | | | | | | | | | | | | valves (2.5-3.5) | | | | | | INR | | | | + + + + + + | APTT | 42.7 (H)Comment: | 26.0 - 36.0 | [facility] | | | | APTT | seconds | DEPARTMENT | | | | Therapeutic | | OF | | | | Range | | PATHOLOGY | | | | | | | | | | (75-120) | | | | | | sec | | | | | | Heparin levels of | | | | | | 0.35-0.7 U/mL | | | | + + + + + + | FIBRINOGEN | 281 | 200 - 450 mg/dL | [facility] | | | LEVEL | | | DEPARTMENT | | | | | | OF | | | | | | PATHOLOGY | | + + + + + + + + | Specimen | + + | | + + + + + + + | Performing | Address | City/State/Zipcode | Phone Number | | Organization | | | | + + + + + | [facility] | [address] | [place] [address] | | | PATHOLOGY | [address] | | | + + + + + | [facility] | [address] | [place] [address] | | | PATHOLOGY | [address] | | | + + + + + HEMATOCRIT (11/09/2008 6:46 AM PDT) + + + + + + | Component | Value | Ref Range | Performed | Pathologist | | | | | At | Signature | + + + + + + | HEMATOCRIT | 21.4 (L) | 36.0 - 46.0 % | [facility] | | | | | | DEPARTMENT | | | | | | OF | | | | | | PATHOLOGY | | + + + + + + + + | Specimen | + + | Blood - Blood | + + + + + + + | Performing | Address | City/State/Zipcode | Phone Number | | Organization | | | | + + + + + | [facility] | [address] | [place] [address] | | | PATHOLOGY | [address] | | | + + + + + | [facility] | [address] | [place] [address] | | | PATHOLOGY | [address] | | | + + + + + DIFFERENTIAL (11/09/2008 1:38 AM PDT) + + + + + + | Component | Value | Ref Range | Performed | Pathologist | | | | | At | Signature | + + + + + + | NEUTROPHIL | 71 (H) | 50 - 70 % | [facility] | | | % | | | DEPARTMENT | | | | | | OF | | | | | | PATHOLOGY | | + + + + + + | LYMPHOCYTE | 18 | 18 - 42 % | [facility] | | | % | | | DEPARTMENT | | | | | | OF | | | | | | PATHOLOGY | | + + + + + + | MONOCYTE % | 11 (H) | 2 - 8 % | [facility] | | | | | | DEPARTMENT | | | | | | OF | | | | | | PATHOLOGY | | + + + + + + | EOS % | 0 (L) | 1 - 3 % | [facility] | | | | | | DEPARTMENT | | | | | | OF | | | | | | PATHOLOGY | | + + + + + + | BASO % | 1 | <3 % | [facility] | | | | | | DEPARTMENT | | | | | | OF | | | | | | PATHOLOGY | | + + + + + + | NEUTROPHIL | 13.1 (H) | 1.8 - 7.7 K/cu | [facility] | | | # | | mm | DEPARTMENT | | | | | | OF | | | | | | PATHOLOGY | | + + + + + + | LYMPHOCYTE | 3.3 | 1.0 - 4.8 K/cu | [facility] | | | # | | mm | DEPARTMENT | | | | | | OF | | | | | | PATHOLOGY | | + + + + + + | MONOCYTE # | 2.0 (H) | <0.9 K/cu mm | [facility] | | | | | | DEPARTMENT | | | | | | OF | | | | | | PATHOLOGY | | + + + + + + | EOS # | 0.0 | <0.6 K/cu mm | [facility] | | | | | | DEPARTMENT | | | | | | OF | | | | | | PATHOLOGY | | + + + + + + | BASO # | 0.2 | <0.3 | [facility] | | | | | | DEPARTMENT | | | | | | OF | | | | | | PATHOLOGY | | + + + + + + + + | Specimen | + + | | + + + + + + + | Performing | Address | City/State/Zipcode | Phone Number | | Organization | | | | + + + + + | [facility] | [address] | [place] [address] | | | PATHOLOGY | [address] | | | + + + + + | [facility] | [address] | [place] [address] | | | PATHOLOGY | [address] | | | + + + + + MAGNESIUM, PLASMA (11/09/2008 1:38 AM PDT) + +---------+ + + + | Component | Value | Ref Range | Performed | Pathologist | | | | | At | Signature | + +---------+ + + + | MAGNESIUM,P | 1.5 (L) | 1.8 - 2.5 mg/dL | [facility] | | | LASMA | | | DEPARTMENT | | | | | | OF | | | | | | PATHOLOGY | | + +---------+ + + + + + | Specimen | + + | Blood - Blood | + + + + + | Narrative | Performed At | + + + | CA Phoned Readback. | [facility] | | | DEPARTMENT OF | | | PATHOLOGY | + + + + + + + + | Performing | Address | City/State/Zipcode | Phone Number | | Organization | | | | + + + + + | [facility] | [address] | [place] [address] | | | PATHOLOGY | [address] | | | + + + + + | [facility] | [address] | [place] [address] | | | PATHOLOGY | [address] | | | + + + + + PHOSPHORUS, PLASMA (11/09/2008 1:38 AM PDT) + +-------+ + + + | Component | Value | Ref Range | Performed | Pathologist | | | | | At | Signature | + +-------+ + + + | PHOSPHORUS, | 2.9 | 2.4 - 4.7 mg/dL | [facility] | | | PLASMA | | | DEPARTMENT | | | (LAB) | | | OF | | | | | | PATHOLOGY | | + +-------+ + + + + + | Specimen | + + | Blood - Blood | + + + + + | Narrative | Performed At | + + + | [place] Phoned Readback. | [facility] | | | DEPARTMENT OF | | | PATHOLOGY | + + + + + + + + | Performing | Address | City/State/Zipcode | Phone Number | | Organization | | | | + + + + + | [facility] | [address] | [place] [address] | | | PATHOLOGY | [address] | | | + + + + + | [facility] | [address] | [place] [address] | | | PATHOLOGY | [address] | | | + + + + + BASIC METABOLIC SET (NA, K, CL, TCO2, BUN, CR, GLU, CA) (11/09/2008 1:38 AM PDT) + + + + + + | Component | Value | Ref Range | Performed | Pathologist | | | | | At | Signature | + + + + + + | GLUCOSE, | 76 | 60 - 99 mg/dL | [facility] | | | PLASMA | | | DEPARTMENT | | | (LAB) | | | OF | | | | | | PATHOLOGY | | + + + + + + | BUN, PLASMA | 6 | 6 - 20 mg/dL | [facility] | | | (LAB) | | | DEPARTMENT | | | | | | OF | | | | | | PATHOLOGY | | + + + + + + | CREATININE | 0.57 (L) | 0.60 - 1.10 | [facility] | | | PLASMA | | mg/dL | DEPARTMENT | | | (LAB) | | | OF | | | | | | PATHOLOGY | | + + + + + + | SODIUM, | 142 | 134 - 143 | [facility] | | | PLASMA | | mmol/L | DEPARTMENT | | | (LAB) | | | OF | | | | | | PATHOLOGY | | + + + + + + | POTASSIUM, | 3.6 | 3.4 - 5.0 | [facility] | | | PLASMA | | mmol/L | DEPARTMENT | | | (LAB) | | | OF | | | | | | PATHOLOGY | | + + + + + + | CHLORIDE, | 117 (H) | 97 - 108 mmol/L | [facility] | | | PLASMA | | | DEPARTMENT | | | (LAB) | | | OF | | | | | | PATHOLOGY | | + + + + + + | CALCIUM, | 7.0 (*) | 8.6 - 10.2 | [facility] | | | PLASMA | | mg/dL | DEPARTMENT | | | (LAB) | | | OF | | | | | | PATHOLOGY | | + + + + + + | TOTAL CO2, | 21 (L) | 23 - 31 mmol/L | [facility] | | | PLASMA | | | DEPARTMENT | | | (LAB) | | | OF | | | | | | PATHOLOGY | | + + + + + + + + | Specimen | + + | Blood - Blood | + + + + + | Narrative | Performed At | + + + | [place] Phoned Readback. | [facility] | | | DEPARTMENT OF | | | PATHOLOGY | + + + + + + + + | Performing | Address | City/State/Zipcode | Phone Number | | Organization | | | | + + + + + | [facility] | [address] [place] [address] | [place] [address] | | | PATHOLOGY | [address] | | | + + + + + | [facility] | [facility] [facility] | [place] [address] | | | PATHOLOGY | [address] | | | + + + + + CBC, WITH DIFFERENTIAL (11/09/2008 1:38 AM PDT) + + + + + + | Component | Value | Ref Range | Performed | Pathologist | | | | | At | Signature | + + + + + + | WHITE CELL | 18.4 (H) | 4.4 - 11.0 K/cu | [facility] | | | COUNT | | mm | DEPARTMENT | | | | | | OF | | | | | | PATHOLOGY | | + + + + + + | RED CELL | 2.71 (L) | 4.00 - 5.20 | [facility] | | | COUNT | | M/cu mm | DEPARTMENT | | | | | | OF | | | | | | PATHOLOGY | | + + + + + + | HEMOGLOBIN | 8.0 (L) | 12.0 - 16.0 | [facility] | | | | | g/dL | DEPARTMENT | | | | | | OF | | | | | | PATHOLOGY | | + + + + + + | HEMATOCRIT | 23.6 (L) | 36.0 - 46.0 % | [facility] | | | | | | DEPARTMENT | | | | | | OF | | | | | | PATHOLOGY | | + + + + + + | MCV | 86.8 | 80.0 - 96.0 fL | [facility] | | | | | | DEPARTMENT | | | | | | OF | | | | | | PATHOLOGY | | + + + + + + | MCHC | 33.9 | 33.4 - 35.5 | [facility] | | | | | g/dL | DEPARTMENT | | | | | | OF | | | | | | PATHOLOGY | | + + + + + + | RDW | 15.8 (H) | 11.5 - 15.0 % | [facility] | | | | | | DEPARTMENT | | | | | | OF | | | | | | PATHOLOGY | | + + + + + + | PLATELET | 168 | 150 - 400 K/cu | [facility] | | | COUNT | | mm | DEPARTMENT | | | | | | OF | | | | | | PATHOLOGY | | + + + + + + + + | Specimen | + + | Blood - Blood | + + + + + + + | Performing | Address | City/State/Zipcode | Phone Number | | Organization | | | | + + + + + | [facility] | [address] | [place], [place] [address] | | | PATHOLOGY | [address] | | | + + + + + | [facility] | [address] [facility] | [place] [address] | | | PATHOLOGY | [address] | | | + + + + + OPERATION RECORD (11/09/2008 12:00 AM PDT) + + + | Narrative | Performed At | + + + | [id number] | | | [id number] | | | [id number] | | | [place] [id number] | | | Date: 11/08/2008 Attending | | | Surgeon: Roc Rae M.D. | | | Governor Assembler(s): Aly Toney | | | [address] | | | St | | | ray Niño M.D. Preoperative Diagnosis(es): Left hand | | | ischemia. Postoperative Diagnosis(es): Ischemia of the deep | | | muscle compartment of the left hand and the flexor compartment of | | | the left forearm. Procedures Performed: 1. Left upper | | | extremity angiography. 2. Thromboembolectomy of the left | | | brachial, radial and ulnar arteries at the brachial | | | bifurcation. 3. Thromboembolectomy of the left ulnar artery at | | | the wrist with thromboembolectomy of the palmar arch. | | | 4. Patch angioplasty of the left ulnar artery at the wrist. | | | 5. Thrombolysis of the left palmar arch with 8 mg of tPA. | | | 6. Fasciotomy of the extensor and flexor compartments of the | | | forearm. 7. Fasciotomy of the left hand per Orthopedic | | | Surgery. Complications: There were no immediate | | | complications. EBL: 500 cc. Fluids: 3 L of | | | crystalloids and 4 units of packed red blood cells. Specimens: | | | Thrombus from the palmar arch. Drains: None. | | | Indications: The patient is a 53-year-old woman who presented with | | | left hand ischemia. She underwent angiography and was found to have | | | occlusion of the left radial and ulnar arteries with no inflow to | | | the hand. Thrombolysis was initiated due to the occlusion of the | | | outflow vessels. She had worsening symptoms with more hand | | | ischemia and was taken emergently to the operating room less than | | | 12 hours ago. A thromboembolectomy at the left brachial, radial | | | and ulnar arteries was performed. Several hours ago, she was | | | noted to have no Doppler signals at the wrist, and arrangements were | | | made for emergent reexploration and revision. Procedure: | | | After informed consent was obtained, the patient was taken back to | | | the operating room and placed in supine position. General | | | endotracheal anesthesia was established. The patient's right groin | | | was prepped and draped in the usual sterile fashion to include the | | | infusion catheter for the thrombolysis. Fluoroscopy was | | | performed, and this demonstrated that the tip of the catheter was | | | at the origin of the subclavian artery. A left upper extremity | | | angiography was attempted from this infusion catheter but was not | | | feasible. The infusion catheter was then exchanged over a wire | | | for a #4-British sheath. A Kumpe catheter and Vela catheter | | | were used to select the left subclavian artery and over wire, the | | | #4 British Vela catheter was advanced to the subclavian | | | artery. Subclavian, axillary, brachial, radial and ulnar | | | angiography was performed. The catheter was inserted into | | | axillary artery for upper extremity imaging. Angiography | | | demonstrated patent of the left subclavian axillary and brachial | | | arteries. The ulnar and radial arteries appear thrombosed at the mid | | | forearm. There appeared to be no inflow into the hand. Based | | | on these findings, the left upper arm was prepped and | | | draped. The existing antecubital incision was opened and the | | | brachial bifurcation was re-exposed. The patient was given 5000 | | | units of heparin. The arteriotomy of the brachial artery was | | | opened after proximal and distal control was obtained. A #2-British | | | Tyson catheter was used for thromboembolectomy of the radial and | | | ulnar arteries. This removed a significant amount of | | | clot. Incisions were then made over the wrist crease overlying | | | the radial and ulnar arteries. The left ulnar incision measured | | | about 5 cm in length, and no artery was exposed. The artery | | | appeared thrombosed. Similarly, the left radial artery appeared | | | thrombosed and bifurcated just at the wrist crease. After | | | thromboembolectomy, the radial artery appeared to be patent. The | | | left ulnar artery was not. A longitudinal arteriotomy was made in | | | the ulnar artery at the wrist, and a large amount of thrombus was | | | removed. The #2 Tyson catheter was passed retrograde and | | | antegrade in the ulnar artery, and large amount of clot was removed | | | from the ulnar artery. Clot was also removed from the palmar | | | arch. In the interim, 4 mg of tPA was mixed and 2 mg was infused | | | in the radial artery and 2 mg in the ulnar artery. It appeared | | | that the fascia overlying the ulnar artery was very tight. The | | | incision overlying the ulnar artery was extended more cephalad, and | | | this revealed a very tight compartment consistent with underlying | | | compartment syndrome. The incision was then carried up the forearm | | | about 4 cm below the antecubital fossa, and the fascia was | | | released. The flexor muscles immediately bulged out. There | | | was not much response in the muscle to electric stimulation with | | | electrocautery. Given these findings, we proceeded with extensor | | | compartment fasciotomy. The extensor compartment appeared to be | | | fine, and the muscles were viable. In the interim, the brachial | | | artery arteriotomy had been closed with interrupted 6-0 Prolene | | | sutures and flow was re-established into the radial artery. There | | | was good inflow into the ulnar artery and the ulnar artery | | | arteriotomy was closed with vein patch angioplasty. The vein was | | | harvested from the antecubital fossa and was likely an antecubital | | | branch of the brachial artery. A flow was then re-established | | | into the ulnar artery. There were palpable pulses at the wrist | | | of both the radial and ulnar arteries; 2 mg was then infused into | | | the ulnar artery and another 2 mg was then infused into the radial | | | artery. This was followed by papaverine infusion. At this time, | | | we were able to obtain Doppler signals over the palmar arch and | | | good signals of the radial and ulnar arteries. Given the | | | findings of nonviable muscle in the flexor compartment, Orthopedic | | | Surgery was consulted for hand fasciotomy. A hand fasciotomy | | | demonstrated nonviability of the thenar eminence and the deep hand | | | muscles. The heparin was not reversed but continued at 400 mg. | | | The antecubital incision was closed in several areas after ensuring | | | hemostasis, and the lateral extensor compartment fasciotomy skin | | | was closed after obtaining good hemostasis with 3-0 Vicryl and | | | running 3-0 nylon sutures. The flexor compartment again could | | | not be closed due to the bulging of the muscle. The soft tissue | | | but not fascia was closed over the exposed ulnar artery, and the | | | skin bridge over the exposed ulnar artery was closed with | | | horizontal mattress sutures. Hemostasis, overlying the exposed | | | muscle, was then provided with electrocautery, and a completion left | | | upper extremity arteriogram was then performed. This was | | | performed when the catheter was placed at the beginning of the case | | | and upper extremity arteriogram demonstrated patency of the | | | axillary, brachial, ulnar and radial arteries to the | | | wrist. There appeared to be flow into the palmar arch but not | | | much flow into the digital artery. The catheter was then | | | removed, but the right femoral sheath remained in place. The | | | wounds were then closed with Vaseline gauze at the open fasciotomy | | | sites and Kerlix. At this portion of the case Obstetrics and | | | Gynecology were consulted for evaluation of the massive ongoing | | | vaginal bleedings. Please see their portion of the operative | | | dictation. Roc Rae M.D. / [id number] / | | | [id number] / [id number] / | | + + + + + | Procedure Note | + + | Roc Rae MD - 11/08/2008 12:00 AM PDT [id number] | | [id number] [facility] | | [id number] Date: 11/08/2008 Attending Surgeon: Roc | | Eve Rae. Governor Assembler(s): Aly Fletcher M.D. | | Sam Niño M.D. Preoperative Diagnosis(es):Left hand ischemia. | | Postoperative Diagnosis(es):Ischemia of the deep muscle compartment of the left hand | | and the flexorcompartment of the left forearm. Procedures Performed:1. Left upper | | extremity angiography.2. Thromboembolectomy of the left brachial, radial and ulnar | | arteries at the brachial bifurcation.3. Thromboembolectomy of the left ulnar | | artery at the wrist with thromboembolectomy of the palmar arch.4. Patch | | angioplasty of the left ulnar artery at the wrist.5. Thrombolysis of the left palmar | | arch with 8 mg of tPA.6. Fasciotomy of the extensor and flexor compartments of the | | forearm.7. Fasciotomy of the left hand per Orthopedic Surgery. Complications:There | | were no immediate complications. EBL:500 cc. Fluids:3 L of crystalloids and 4 units | | of packed red blood cells. Specimens:Thrombus from the palmar arch. Drains:None. | | Indications:The patient is a 53-year-old woman who presented with left hand ischemia.She | | underwent angiography and was found to have occlusion of the leftradial and ulnar | | arteries with no inflow to the hand. Thrombolysis wasinitiated due to the occlusion of | | the outflow vessels. She had worseningsymptoms with more hand ischemia and was taken | | emergently to the operatingroom less than 12 hours ago. A thromboembolectomy at the | | left brachial,radial and ulnar arteries was performed. Several hours ago, she was | | notedto have no Doppler signals at the wrist, and arrangements were made foremergent | | reexploration and revision. Procedure:After informed consent was obtained, the patient | | was taken back to theoperating room and placed in supine position. General | | endotrachealanesthesia was established. The patient's right groin was prepped anddraped | | in the usual sterile fashion to include the infusion catheter forthe thrombolysis. | | Fluoroscopy was performed, and this demonstrated thatthe tip of the catheter was at the | | origin of the subclavian artery. A leftupper extremity angiography was attempted from | | this infusion catheter butwas not feasible. The infusion catheter was then exchanged | | over a wire fora #4-British sheath. A Kumpe catheter and Vela catheter were used | | toselect the left subclavian artery and over wire, the #4 British Bernsteincatheter was | | advanced to the subclavian artery. Subclavian, axillary,brachial, radial and ulnar | | angiography was performed. The catheter wasinserted into axillary artery for upper | | extremity imaging. Angiographydemonstrated patent of the left subclavian axillary and | | brachial arteries.The ulnar and radial arteries appear thrombosed at the mid forearm. | | Thereappeared to be no inflow into the hand. Based on these findings, the leftupper arm | | was prepped and draped. The existing antecubital incision wasopened and the brachial | | bifurcation was re-exposed. The patient was [id number] units of heparin. The | | arteriotomy of the brachial artery was openedafter proximal and distal control was | | obtained. A #2-British Fogartycatheter was used for thromboembolectomy of the radial and | | ulnar arteries.This removed a significant amount of clot. Incisions were then made | | overthe wrist crease overlying the radial and ulnar arteries. The left ulnarincision | | measured about 5 cm in length, and no artery was exposed. Theartery appeared | | thrombosed. Similarly, the left radial artery appearedthrombosed and bifurcated just at | | the wrist crease. Afterthromboembolectomy, the radial artery appeared to be patent. | | The leftulnar artery was not. A longitudinal arteriotomy was made in the ulnarartery at | | the wrist, and a large amount of thrombus was removed. The #2Fogarty catheter was | | passed retrograde and antegrade in the ulnar artery,and large amount of clot was removed | | from the ulnar artery. Clot was alsoremoved from the palmar arch. In the interim, 4 | | mg of tPA was mixed and 2mg was infused in the radial artery and 2 mg in the ulnar | | artery. Itappeared that the fascia overlying the ulnar artery was very tight. | | Theincision overlying the ulnar artery was extended more cephalad, and thisrevealed a | | very tight compartment consistent with underlying compartmentsyndrome. The incision was | | then carried up the forearm about 4 cm belowthe antecubital fossa, and the fascia was | | released. The flexor musclesimmediately bulged out. There was not much response in the | | muscle toelectric stimulation with electrocautery. Given these findings, weproceeded | | with extensor compartment fasciotomy. The extensor compartmentappeared to be fine, and | | the muscles were viable. In the interim, thebrachial artery arteriotomy had been closed | | with interrupted 6-0 Prolenesutures and flow was re-established into the radial artery. | | There was goodinflow into the ulnar artery and the ulnar artery arteriotomy was | | closedwith vein patch angioplasty. The vein was harvested from the antecubitalfossa and | | was likely an antecubital branch of the brachial artery. A flowwas then re-established | | into the ulnar artery. There were palpable pulsesat the wrist of both the radial and | | ulnar arteries; 2 mg was then infusedinto the ulnar artery and another 2 mg was then | | infused into the radialartery. This was followed by papaverine infusion. At this time, | | we wereable to obtain Doppler signals over the palmar arch and good signals of | | theradial and ulnar arteries. Given the findings of nonviable muscle in theflexor | | compartment, Orthopedic Surgery was consulted for hand fasciotomy.A hand fasciotomy | | demonstrated nonviability of the thenar eminence and thedeep hand muscles. The heparin | | was not reversed but continued at 400 mg.The antecubital incision was closed in several | | areas after ensuringhemostasis, and the lateral extensor compartment fasciotomy skin was | | closedafter obtaining good hemostasis with 3-0 Vicryl and running 3-0 nylonsutures. | | The flexor compartment again could not be closed due to thebulging of the muscle. The | | soft tissue but not fascia was closed over theexposed ulnar artery, and the skin bridge | | over the exposed ulnar artery wasclosed with horizontal mattress sutures. Hemostasis, | | overlying the exposedmuscle, was then provided with electrocautery, and a completion | | left upperextremity arteriogram was then performed. This was performed when thecatheter | | was placed at the beginning of the case and upper extremityarteriogram demonstrated | | patency of the axillary, brachial, ulnar andradial arteries to the wrist. There | | appeared to be flow into the palmararch but not much flow into the digital artery. The | | catheter was thenremoved, but the right femoral sheath remained in place. The wounds | | werethen closed with Vaseline gauze at the open fasciotomy sites and Kerlix.At this | | portion of the case Obstetrics and Gynecology were consulted forevaluation of the | | massive ongoing vaginal bleedings. Please see theirportion of the operative dictation. | | Roc Rae M.D.MALIKA / [id number] / [id number] / [id number] / T: 11/09/2008 | | | |upper arm was prepped and draped. The existing antecubital incision was | |opened and the brachial bifurcation was re-exposed. The patient was given | |5000 units of heparin. The arteriotomy of the brachial artery was opened | |after proximal and distal control was obtained. A #2-British Tyson | |catheter was used for thromboembolectomy of the radial and ulnar arteries. | |This removed a significant amount of clot. Incisions were then made over | |the wrist crease overlying the radial and ulnar arteries. The left ulnar | |incision measured about 5 cm in length, and no artery was exposed. The | |artery appeared thrombosed. Similarly, the left radial artery appeared | |thrombosed and bifurcated just at the wrist crease. After | |thromboembolectomy, the radial artery appeared to be patent. The left | |ulnar artery was not. A longitudinal arteriotomy was made in the ulnar | |artery at the wrist, and a large amount of thrombus was removed. The #2 | |Tyson catheter was passed retrograde and antegrade in the ulnar artery, | |and large amount of clot was removed from the ulnar artery. Clot was also | |removed from the palmar arch. In the interim, 4 mg of tPA was mixed and 2 | |mg was infused in the radial artery and 2 mg in the ulnar artery. It | |appeared that the fascia overlying the ulnar artery was very tight. The | |incision overlying the ulnar artery was extended more cephalad, and this | |revealed a very tight compartment consistent with underlying compartment | |syndrome. The incision was then carried up the forearm about 4 cm below | |the antecubital fossa, and the fascia was released. The flexor muscles | |immediately bulged out. There was not much response in the muscle to | |electric stimulation with electrocautery. Given these findings, we | |proceeded with extensor compartment fasciotomy. The extensor compartment | |appeared to be fine, and the muscles were viable. In the interim, the | |brachial artery arteriotomy had been closed with interrupted 6-0 Prolene | |sutures and flow was re-established into the radial artery. There was good | |inflow into the ulnar artery and the ulnar artery arteriotomy was closed | |with vein patch angioplasty. The vein was harvested from the antecubital | |fossa and was likely an antecubital branch of the brachial artery. A flow | |was then re-established into the ulnar artery. There were palpable pulses | |at the wrist of both the radial and ulnar arteries; 2 mg was then infused | |into the ulnar artery and another 2 mg was then infused into the radial | |artery. This was followed by papaverine infusion. At this time, we were | |able to obtain Doppler signals over the palmar arch and good signals of the | |radial and ulnar arteries. Given the findings of nonviable muscle in the | |flexor compartment, Orthopedic Surgery was consulted for hand fasciotomy. | |A hand fasciotomy demonstrated nonviability of the thenar eminence and the | |deep hand muscles. The heparin was not reversed but continued at 400 mg. | |The antecubital incision was closed in several areas after ensuring | |hemostasis, and the lateral extensor compartment fasciotomy skin was closed | |after obtaining good hemostasis with 3-0 Vicryl and running 3-0 nylon | |sutures. The flexor compartment again could not be closed due to the | |bulging of the muscle. The soft tissue but not fascia was closed over the | |exposed ulnar artery, and the skin bridge over the exposed ulnar artery was | |closed with horizontal mattress sutures. Hemostasis, overlying the exposed | |muscle, was then provided with electrocautery, and a completion left upper | |extremity arteriogram was then performed. This was performed when the | |catheter was placed at the beginning of the case and upper extremity | |arteriogram demonstrated patency of the axillary, brachial, ulnar and | |radial arteries to the wrist. There appeared to be flow into the palmar | |arch but not much flow into the digital artery. The catheter was then | |removed, but the right femoral sheath remained in place. The wounds were | |then closed with Vaseline gauze at the open fasciotomy sites and Kerlix. | |At this portion of the case Obstetrics and Gynecology were consulted for | |evaluation of the massive ongoing vaginal bleedings. Please see their | |portion of the operative dictation. | | | | | | | | | |Roc Rae M.D. 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 | | | Procedures Performed: Left hand two-incision fasciotomy. | | | Anesthesia: General. EBL: Minimal. Complications: | | | None. Specimens: None. Implants: None. | | | Findings: The thenar and hypothenar muscles were released. Two | | | separate incisions which were extensions from the two previous | | | incisions for the radial and ulnar artery | | | revascularization. These muscles were visualized. They were | | | found to have no contractility with electrocautery stimulation. | | | They are also giordano in color. Drains: None. | | | Disposition: The patient will be admitted back to the Vascular | | | Service. She should be nonweightbearing about the left upper | | | extremity. Postoperative antibiotics and DVT prophylaxis will be | | | managed by the vascular team. We will continue to follow. We | | | will discuss with Hand Service regarding possibilities for | | | functional hand given the extensive amount of necrotic muscle | | | injury. If this was found to be a nonsalvageable hand, we will | | | discuss with the patient amputation. If this is to occur, she | | | will likely be scheduled next week to allow the tissues to | | | demarcate. Indications: Kelly Mcclellan is a 53-year-old woman | | | for whom I was called for an intraoperative consult for evaluation | | | for left hand fasciotomies. This was an unfortunate lady who was | | | bit by a horse and subsequently was found to have arterial vascular | | | injuries on both the radial and ulnar artery. The patient was | | | taken back to the operating room today at which point she was found | | | to have completely dysvascular forearm and hand. The forearm and | | | hand were then revascularized, however, given the extent of | | | swelling, it was request of the vascular attending or Orthopedic | | | consultation for fasciotomy of the hand. At this point, I then | | | scrubbed in. Two-compartment fasciotomy of the hand: Of | | | note, the hand was found to be tense and very swollen. Also, | | | visualized the muscles of the forearm which were found to be red | | | and bleeding, however, they were not found to have significant | | | contractility with electrocautery stimulation. Therefore, I did | | | feel there was an indication to proceed with the two-incision | | | fasciotomies of the thenar and hypothenar compartments. This was | | | done by extending both the radial and ulnar incision distally into | | | the hand. We made a curved incision just radial to the thenar | | | crease and from a hypothenar incision made a zigzag incision that | | | came out directly up over the fifth ray. I used the #10 blade in | | | order to incise through the dermis and then bluntly dissect it | | | through the subcutaneous tissue until I reached the fascia of the | | | thenar and hypothenar compartments. The patient was then | | | released in line with my incisions. This took me directly down on | | | to the thenar hypothenar musculature. These were found to be giordano | | | in color and there was no evidence of contractility with | | | electrocautery stimulation. At this point, I then continued my | | | dissection in order to visualize the digital nerves as they coursed | | | through the area of my incision. These were found to be intact | | | throughout the entirety of the surgical field. At this point, I | | | then discussed the Vascular Service that these compartments were | | | adequately released, however, given the lack of contractility in the | | | nonviable muscle, it was unlikely that she would recover function | | | in this hand. At this point, for followup, I will discuss this | | | case with Hand Service and order for appropriate management so that | | | further treatment and recommendations can be involved. | | | MD MARY Gregg / VONNIE [id number] / [id number] / [id number] / D: | | | 11/08/2008 | | + + + + + | Procedure Note | + + | Scot Beltrán MD - 11/08/2008 12:00 AM PDT [id number] | | [id number] [facility] | | [id number] Date: 11/08/2008 Attending Surgeon: Scot | | MD Jerel Governor Assembler(s): Preoperative Diagnosis(es):Dysvascular hand status post | | revascularization with left hand compartmentsyndrome. Postoperative | | Diagnosis(es):Dysvascular hand status post revascularization with left hand | | compartmentsyndrome. Procedures Performed:Left hand two-incision fasciotomy. | | Anesthesia:General. EBL:Minimal. Complications:None. Specimens:None. Implants:None. | | Findings:The thenar and hypothenar muscles were released. Two separate incisionswhich | | were extensions from the two previous incisions for the radial andulnar artery | | revascularization. These muscles were visualized. They werefound to have no | | contractility with electrocautery stimulation. They arealso giordano in color. | | Drains:None. Disposition:The patient will be admitted back to the Vascular Service. | | She should benonweightbearing about the left upper extremity. Postoperative | | antibioticsand DVT prophylaxis will be managed by the vascular team. We will continueto | | follow. We will discuss with Hand Service regarding possibilities forfunctional hand | | given the extensive amount of necrotic muscle injury. Ifthis was found to be a | | nonsalvageable hand, we will discuss with thepatient amputation. If this is to occur, | | she will likely be scheduled nextweek to allow the tissues to demarcate. | | Indications:Kelly Mcclellan is a 53-year-old woman for whom I was called for | | anintraoperative consult for evaluation for left hand fasciotomies. This [place] | | unfortunate lady who was bit by a horse and subsequently was found tohave arterial | | vascular injuries on both the radial and ulnar artery. Thepatient was taken back to the | | operating room today at which point she wasfound to have completely dysvascular forearm | | and hand. The forearm andhand were then revascularized, however, given the extent of | | swelling, itwas request of the vascular attending or Orthopedic consultation | | forfasciotomy of the hand. At this point, I then scrubbed in. Two-compartment | | fasciotomy of the hand: Of note, the hand was found to betense and very swollen. Also, | | visualized the muscles of the forearm whichwere found to be red and bleeding, however, | | they were not found to havesignificant contractility with electrocautery stimulation. | | Therefore, Idid feel there was an indication to proceed with the | | two-incisionfasciotomies of the thenar and hypothenar compartments. This was done | | byextending both the radial and ulnar incision distally into the hand. Wemade a curved | | incision just radial to the thenar crease and from ahypothenar incision made a zigzag | | incision that came out directly up overthe fifth ray. I used the #10 blade in order to | | incise through the dermisand then bluntly dissect it through the subcutaneous tissue | | until I reachedthe fascia of the thenar and hypothenar compartments. The patient was | | thenreleased in line with my incisions. This took me directly down on to thethenar | | hypothenar musculature. These were found to be giordano in color andthere was no evidence | | of contractility with electrocautery stimulation. Atthis point, I then continued my | | dissection in order to visualize thedigital nerves as they coursed through the area of | | my incision. These werefound to be intact throughout the entirety of the surgical | | field. At thispoint, I then discussed the Vascular Service that these compartments | | wereadequately released, however, given the lack of contractility in thenonviable | | muscle, it was unlikely that she would recover function in thishand. At this point, for | | followup, I will discuss this case with HandService and order for appropriate | | management so that further treatment andrecommendations can be involved. Scot | | VANNESSA Beltrán / [id number] / [id number] / [id number] / T: 11/09/2008 | |The thenar and hypothenar muscles were released. Two separate incisions | |which were extensions from the two previous incisions for the radial and | |ulnar artery revascularization. These muscles were visualized. They were | |found to have no contractility with electrocautery stimulation. They are | |also giordano in color. | | | | | |Drains: | |None. | | | | | |Disposition: | |The patient will be admitted back to the Vascular Service. She should be | |nonweightbearing about the left upper extremity. Postoperative antibiotics | |and DVT prophylaxis will be managed by the vascular team. We will continue | |to follow. We will discuss with Hand Service regarding possibilities for | |functional hand given the extensive amount of necrotic muscle injury. If | |this was found to be a nonsalvageable hand, we will discuss with the | |patient amputation. If this is to occur, she will likely be scheduled next | |week to allow the tissues to demarcate. | | | | | |Indications: | |Kelly Mcclellan is a 53-year-old woman for whom I was called for an | |intraoperative consult for evaluation for left hand fasciotomies. This was | |an unfortunate lady who was bit by a horse and subsequently was found to | |have arterial vascular injuries on both the radial and ulnar artery. The | |patient was taken back to the operating room today at which point she was | |found to have completely dysvascular forearm and hand. The forearm and | |hand were then revascularized, however, given the extent of swelling, it | |was request of the vascular attending or Orthopedic consultation for | |fasciotomy of the hand. At this point, I then scrubbed in. | | | | | |Two-compartment fasciotomy of the hand: Of note, the hand was found to be | |tense and very swollen. Also, visualized the muscles of the forearm which | |were found to be red and bleeding, however, they were not found to have | |significant contractility with electrocautery stimulation. Therefore, I | |did feel there was an indication to proceed with the two-incision | |fasciotomies of the thenar and hypothenar compartments. This was done by | |extending both the radial and ulnar incision distally into the hand. We | |made a curved incision just radial to the thenar crease and from a | |hypothenar incision made a zigzag incision that came out directly up over | |the fifth ray. I used the #10 blade in order to incise through the dermis | |and then bluntly dissect it through the subcutaneous tissue until I reached | |the fascia of the thenar and hypothenar compartments. The patient was then | |released in line with my incisions. This took me directly down on to the | |thenar hypothenar musculature. These were found to be giordano in color and | |there was no evidence of contractility with electrocautery stimulation. At | |this point, I then continued my dissection in order to visualize the | |digital nerves as they coursed through the area of my incision. These were | |found to be intact throughout the entirety of the surgical field. At this | |point, I then discussed the Vascular Service that these compartments were | |adequately released, however, given the lack of contractility in the | |nonviable muscle, it was unlikely that she would recover function in this | |hand. At this point, for followup, I will discuss this case with Hand | |Service and order for appropriate management so that further treatment and | |recommendations can be involved. | | | | | | | | | |Scot Beltrán MD | |ZA / HS | |[id number] / [id number] / [id number] / | | | | | | | | | | | | | | | | | | | | | + + HEMATOCRIT (11/08/2008 8:24 PM PDT) + + + + + + | Component | Value | Ref Range | Performed | Pathologist | | | | | At | Signature | + + + + + + | HEMATOCRIT | 26.8 (L) | 36.0 - 46.0 % | [facility] | | | | | | DEPARTMENT | | | | | | OF | | | | | | PATHOLOGY | | + + + + + + + + | Specimen | + + | Blood - Blood | + + + + + + + | Performing | Address | City/State/Zipcode | Phone Number | | Organization | | | | + + + + + | [facility] | [address] | [place] [address] | | | PATHOLOGY | [address] | | | + + + + + | [facility] | [address] | [place] [address] | | | PATHOLOGY | [address] | | | + + + + + X-RAY PORTABLE CHEST 1 VIEW (11/08/2008 4:08 PM PDT) + + + + + + | Component | Value | Ref Range | Performed | Pathologist | | | | | At | Signature | + + + + + + | X-RAY | EXAM: AP | | | | | PORTABLE | chest.COMPARISON: | | | | | CHEST 1 | 11/06/08INDICATION: LINE | | | | | VIEW | placementFINDINGS: | | | | | | Right internal jugular | | | | | | central line has its tip | | | | | | in thecavoatrial | | | | | | junction. Cardiac | | | | | | silhouette is | | | | | | normal. Mild | | | | | | bi-basilaratelectasis. | | | | | | No pulmonary edema is | | | | | | present. Osseous | | | | | | structures | | | | | | areunremarkable.IMPRESSI | | | | | | ON:Right internal | | | | | | jugular central line | | | | | | placed without acute | | | | | | complication.I have | | | | | | personally viewed this | | | | | | procedure/exam and | | | | | | reviewed this | | | | | | report.Author: LUCIO Franks | | | | | | Aguilar VANEGASReviewer: | | | | | | LUCIO VANEGAS, | | | | | | AguilarSTATUS FINAL / Dr. | | | | | | LUCIO VANEGAS | | | | + + + + + + + + | Specimen | + + | | + + + +---------+ + + | Performing | Address | City/State/Zipcode | Phone Number | | Organization | | | | + +---------+ + + | [facility] DEPARTMENT OF | | | | | RADIOLOGY | | | | + +---------+ + + PRODUCT- RED CELLS LEUKOREDUCED (11/08/2008 2:03 PM PDT) + + + + + + | Component | Value | Ref Range | Performed | Pathologist | | | | | At | Signature | + + + + + + | PRODUCT | -1 RED BLOOD | | [facility] | | | DESCRIPTION | CELLS,ADENINE-SALINE | | DEPARTMENT | | | | ADDED,LEUKOCYTES REDUCED | | OF | | | | | | PATHOLOGY | | + + + + + + | PRODUCT | [id number] | | [facility] | | | UNIT # | | | DEPARTMENT | | | | | | OF | | | | | | PATHOLOGY | | + + + + + + | UNIT ABO | A | | [facility] | | | | | | DEPARTMENT | | | | | | OF | | | | | | PATHOLOGY | | + + + + + + | UNIT RH | POS | | [facility] | | | | | | DEPARTMENT | | | | | | OF | | | | | | PATHOLOGY | | + + + + + + | STATUS OF | Returned to Blood Bank | | [facility] | | | UNIT | | | DEPARTMENT | | | | | | OF | | | | | | PATHOLOGY | | + + + + + + + + | Specimen | + + | | + + + + + + + | Performing | Address | City/State/Zipcode | Phone Number | | Organization | | | | + + + + + | [facility] | [facility] [address] | [place] [address] | | | PATHOLOGY | [address] | | | + + + + + | [facility] | [facility] | [place] [address] | | | PATHOLOGY | [address] | | | + + + + + PRODUCT- RED CELLS LEUKOREDUCED (11/08/2008 2:03 PM PDT) + + + + + + | Component | Value | Ref Range | Performed | Pathologist | | | | | At | Signature | + + + + + + | PRODUCT | -1 RED BLOOD | | [facility] | | | DESCRIPTION | CELLS,ADENINE-SALINE | | DEPARTMENT | | | | ADDED,LEUKOCYTES REDUCED | | OF | | | | | | PATHOLOGY | | + + + + + + | PRODUCT | [id number] | | [facility] | | | UNIT # | | | DEPARTMENT | | | | | | OF | | | | | | PATHOLOGY | | + + + + + + | UNIT ABO | A | | [facility] | | | | | | DEPARTMENT | | | | | | OF | | | | | | PATHOLOGY | | + + + + + + | UNIT RH | POS | | [facility] | | | | | | DEPARTMENT | | | | | | OF | | | | | | PATHOLOGY | | + + + + + + | STATUS OF | Returned to Blood Bank | | [facility] | | | UNIT | | | DEPARTMENT | | | | | | OF | | | | | | PATHOLOGY | | + + + + + + + + | Specimen | + + | | + + + + + + + | Performing | Address | City/State/Zipcode | Phone Number | | Organization | | | | + + + + + | [facility] | [address] | [place] [address] | | | PATHOLOGY | [address] | | | + + + + + | [facility] | [facility] | [place] [address] | | | PATHOLOGY | [address] | | | + + + + + PRODUCT- RED CELLS LEUKOREDUCED (11/08/2008 2:03 PM PDT) + + + + + + | Component | Value | Ref Range | Performed | Pathologist | | | | | At | Signature | + + + + + + | PRODUCT | -1 RED BLOOD | | [facility] | | | DESCRIPTION | CELLS,ADENINE-SALINE | | DEPARTMENT | | | | ADDED,LEUKOCYTES REDUCED | | OF | | | | | | PATHOLOGY | | + + + + + + | PRODUCT | [id number] | | [facility] | | | UNIT # | | | DEPARTMENT | | | | | | OF | | | | | | PATHOLOGY | | + + + + + + | UNIT ABO | A | | [facility] | | | | | | DEPARTMENT | | | | | | OF | | | | | | PATHOLOGY | | + + + + + + | UNIT RH | POS | | [facility] | | | | | | DEPARTMENT | | | | | | OF | | | | | | PATHOLOGY | | + + + + + + | STATUS OF | Presumed Transfused | | [facility] | | | UNIT | | | DEPARTMENT | | | | | | OF | | | | | | PATHOLOGY | | + + + + + + + + | Specimen | + + | | + + + + + + + | Performing | Address | City/State/Zipcode | Phone Number | | Organization | | | | + + + + + | [facility] | [facility] | [place] [address] | | | PATHOLOGY | [address] | | | + + + + + | [facility] | [address] [place] [address] | [place] [address] | | | PATHOLOGY | [address] | | | + + + + + PRODUCT- RED CELLS LEUKOREDUCED (11/08/2008 2:03 PM PDT) + + + + + + | Component | Value | Ref Range | Performed | Pathologist | | | | | At | Signature | + + + + + + | PRODUCT | -1 RED BLOOD | | [facility] | | | DESCRIPTION | CELLS,ADENINE-SALINE | | DEPARTMENT | | | | ADDED,LEUKOCYTES REDUCED | | OF | | | | | | PATHOLOGY | | + + + + + + | PRODUCT | [id number] | | [facility] | | | UNIT # | | | DEPARTMENT | | | | | | OF | | | | | | PATHOLOGY | | + + + + + + | UNIT ABO | A | | [facility] | | | | | | DEPARTMENT | | | | | | OF | | | | | | PATHOLOGY | | + + + + + + | UNIT RH | POS | | [facility] | | | | | | DEPARTMENT | | | | | | OF | | | | | | PATHOLOGY | | + + + + + + | STATUS OF | Returned to Blood Bank | | [facility] | | | UNIT | | | DEPARTMENT | | | | | | OF | | | | | | PATHOLOGY | | + + + + + + + + | Specimen | + + | | + + + + + + + | Performing | Address | City/State/Zipcode | Phone Number | | Organization | | | | + + + + + | [facility]MENT [facility] | [address] | [place] [address] | | | PATHOLOGY | [address] | | | + + + + + | [facility]MENT [facility] | [address] | [place] [address] | | | PATHOLOGY | [address] | | | + + + + + DIFFERENTIAL (11/08/2008 3:40 AM PDT) + + + + + + | Component | Value | Ref Range | Performed | Pathologist | | | | | At | Signature | + + + + + + | NEUTROPHIL | 81 (H) | 50 - 70 % | [facility] | | | % | | | DEPARTMENT | | | | | | OF | | | | | | PATHOLOGY | | + + + + + + | LYMPHOCYTE | 11 (L) | 18 - 42 % | [facility] | | | % | | | DEPARTMENT | | | | | | OF | | | | | | PATHOLOGY | | + + + + + + | MONOCYTE % | 7 | 2 - 8 % | [facility] | | | | | | DEPARTMENT | | | | | | OF | | | | | | PATHOLOGY | | + + + + + + | EOS % | 0 (L) | 1 - 3 % | [facility] | | | | | | DEPARTMENT | | | | | | OF | | | | | | PATHOLOGY | | + + + + + + | BASO % | 2 | <3 % | [facility] | | | | | | DEPARTMENT | | | | | | OF | | | | | | PATHOLOGY | | + + + + + + | NEUTROPHIL | 17.7 (H) | 1.8 - 7.7 K/cu | [facility] | | | # | | mm | DEPARTMENT | | | | | | OF | | | | | | PATHOLOGY | | + + + + + + | LYMPHOCYTE | 2.4 | 1.0 - 4.8 K/cu | [facility] | | | # | | mm | DEPARTMENT | | | | | | OF | | | | | | PATHOLOGY | | + + + + + + | MONOCYTE # | 1.5 (H) | <0.9 K/cu mm | [facility] | | | | | | DEPARTMENT | | | | | | OF | | | | | | PATHOLOGY | | + + + + + + | EOS # | 0.0 | <0.6 K/cu mm | [facility] | | | | | | DEPARTMENT | | | | | | OF | | | | | | PATHOLOGY | | + + + + + + | BASO # | 0.4 (H) | <0.3 | [facility] | | | | | | DEPARTMENT | | | | | | OF | | | | | | PATHOLOGY | | + + + + + + + + | Specimen | + + | | + + + + + | Narrative | Performed At | + + + | * Corrected 11/08/08 06:34: GILLIANNEL COMMENTS, prev report: Slide | [facility] | | review pending. | DEPARTMENT OF | | | PATHOLOGY | + + + + + + + + | Performing | Address | City/State/Zipcode | Phone Number | | Organization | | | | + + + + + | [facility] | [address] | [place] [address] | | | PATHOLOGY | [address] | | | + + + + + | [facility] | [address] [place] [address] | [place] [address] | | | PATHOLOGY | [address] | | | + + + + + COAGULOPATHY PANEL (INR,APTT,FIBRINOGEN) (11/08/2008 3:40 AM PDT) + + + + + + | Component | Value | Ref Range | Performed | Pathologist | | | | | At | Signature | + + + + + + | INR | 1.38 (H)Comment: | 0.90 - 1.20 INR | [facility] | | | | INR | | DEPARTMENT | | | | Therapeutic ranges for | | OF | | | | full | | PATHOLOGY | | | | anticoagulation: | | | | | | INR for Venous | | | | | | Thromboembolism | | | | | | | | | | | | (2.0-3.0) | | | | | | INR INR for | | | | | | most patients with mech. | | | | | | | | | | | | valves (2.5-3.5) | | | | | | INR | | | | + + + + + + | APTT | 33.7Comment: | 26.0 - 36.0 | [facility] | | | | APTT | seconds | DEPARTMENT | | | | Therapeutic | | OF | | | | Range | | PATHOLOGY | | | | | | | | | | (75-120) | | | | | | sec | | | | | | Heparin levels of | | | | | | 0.35-0.7 U/mL | | | | + + + + + + | FIBRINOGEN | 153 (L) | 200 - 450 mg/dL | [facility] | | | LEVEL | | | DEPARTMENT | | | | | | OF | | | | | | PATHOLOGY | | + + + + + + + + | Specimen | + + | Blood - Blood | + + + + + + + | Performing | Address | City/State/Zipcode | Phone Number | | Organization | | | | + + + + + | [facility]MENT [facility] | [address] | [place] [address] | | | PATHOLOGY | [address] | | | + + + + + | [facility]MENT [facility] | [address] | [place] [address] | | | PATHOLOGY | [address] | | | + + + + + PHOSPHORUS, PLASMA (11/08/2008 3:40 AM PDT) + +-------+ + + + | Component | Value | Ref Range | Performed | Pathologist | | | | | At | Signature | + +-------+ + + + | PHOSPHORUS, | 4.0 | 2.4 - 4.7 mg/dL | [facility] | | | PLASMA | | | DEPARTMENT | | | (LAB) | | | OF | | | | | | PATHOLOGY | | + +-------+ + + + + + | Specimen | + + | Blood - Blood | + + + + + | Narrative | Performed At | + + + | Sample hemolyzed. Results for K, Total Bili., Direct Bili., AST, LD, | [facility] | | or HDL may be inaccurate. Refer to comment under test result. | DEPARTMENT OF | | | PATHOLOGY | + + + + + + + + | Performing | Address | City/State/Zipcode | Phone Number | | Organization | | | | + + + + + | [facility] | [address] | [place] [address] | | | PATHOLOGY | [address] | | | + + + + + | [facility] | [address] | [place] [address] | | | PATHOLOGY | [address] | | | + + + + + MAGNESIUM, PLASMA (11/08/2008 3:40 AM PDT) + +-------+ + + + | Component | Value | Ref Range | Performed | Pathologist | | | | | At | Signature | + +-------+ + + + | MAGNESIUM,P | 1.9 | 1.8 - 2.5 mg/dL | [facility] | | | LASMA | | | DEPARTMENT | | | | | | OF | | | | | | PATHOLOGY | | + +-------+ + + + + + | Specimen | + + | Blood - Blood | + + + + + | Narrative | Performed At | + + + | Sample hemolyzed. Results for K, Total Bili., Direct Bili., AST, LD, | [facility] | | or HDL may be inaccurate. Refer to comment under test result. | DEPARTMENT OF | | | PATHOLOGY | + + + + + + + + | Performing | Address | City/State/Zipcode | Phone Number | | Organization | | | | + + + + + | [facility] | [address] | [place] [address] | | | PATHOLOGY | [address] | | | + + + + + | [facility] | [address] | [place] [address] | | | PATHOLOGY | [address] | | | + + + + + BASIC METABOLIC SET (NA, K, CL, TCO2, BUN, CR, GLU, CA) (11/08/2008 3:40 AM PDT) + + + + + + | Component | Value | Ref Range | Performed | Pathologist | | | | | At | Signature | + + + + + + | GLUCOSE, | 263 (H) | 60 - 99 mg/dL | [facility] | | | PLASMA | | | DEPARTMENT | | | (LAB) | | | OF | | | | | | PATHOLOGY | | + + + + + + | BUN, PLASMA | 13 | 6 - 20 mg/dL | [facility] | | | (LAB) | | | DEPARTMENT | | | | | | OF | | | | | | PATHOLOGY | | + + + + + + | CREATININE | 0.55 (L) | 0.60 - 1.10 | [facility] | | | PLASMA | | mg/dL | DEPARTMENT | | | (LAB) | | | OF | | | | | | PATHOLOGY | | + + + + + + | SODIUM, | 138 | 134 - 143 | [facility] | | | PLASMA | | mmol/L | DEPARTMENT | | | (LAB) | | | OF | | | | | | PATHOLOGY | | + + + + + + | POTASSIUM, | 4.7 | 3.4 - 5.0 | [facility] | | | PLASMA | | mmol/L | DEPARTMENT | | | (LAB) | | | OF | | | | | | PATHOLOGY | | + + + + + + | CHLORIDE, | 113 (H) | 97 - 108 mmol/L | [facility] | | | PLASMA | | | DEPARTMENT | | | (LAB) | | | OF | | | | | | PATHOLOGY | | + + + + + + | CALCIUM, | 7.2 (L) | 8.6 - 10.2 | [facility] | | | PLASMA | | mg/dL | DEPARTMENT | | | (LAB) | | | OF | | | | | | PATHOLOGY | | + + + + + + | TOTAL CO2, | 18 (L) | 23 - 31 mmol/L | [facility] | | | PLASMA | | | DEPARTMENT | | | (LAB) | | | OF | | | | | | PATHOLOGY | | + + + + + + | POTASSIUM | MOD HEMO | | [facility] | | | CMNT | | | DEPARTMENT | | | | | | OF | | | | | | PATHOLOGY | | + + + + + + + + | Specimen | + + | Blood - Blood | + + + + + | Narrative | Performed At | + + + | Sample hemolyzed. Results for K, Total Bili., Direct Bili., AST, LD, | [facility] | | or HDL may be inaccurate. Refer to comment under test result. | DEPARTMENT OF | | | PATHOLOGY | + + + + + + + + | Performing | Address | City/State/Zipcode | Phone Number | | Organization | | | | + + + + + | [facility] | [address] | [place] [address] | | | PATHOLOGY | [address] | | | + + + + + | [facility] | [address] | [place] [address] | | | PATHOLOGY | [address] | | | + + + + + CBC, WITH DIFFERENTIAL (11/08/2008 3:40 AM PDT) + + + + + + | Component | Value | Ref Range | Performed | Pathologist | | | | | At | Signature | + + + + + + | RED CELL | 3.57 (L) | 4.00 - 5.20 | [facility] | | | COUNT | | M/cu mm | DEPARTMENT | | | | | | OF | | | | | | PATHOLOGY | | + + + + + + | HEMOGLOBIN | 10.0 (L) | 12.0 - 16.0 | [facility] | | | | | g/dL | DEPARTMENT | | | | | | OF | | | | | | PATHOLOGY | | + + + + + + | HEMATOCRIT | 29.8 (L) | 36.0 - 46.0 % | [facility] | | | | | | DEPARTMENT | | | | | | OF | | | | | | PATHOLOGY | | + + + + + + | MCV | 83.6 | 80.0 - 96.0 fL | [facility] | | | | | | DEPARTMENT | | | | | | OF | | | | | | PATHOLOGY | | + + + + + + | MCHC | 33.6 | 33.4 - 35.5 | [facility] | | | | | g/dL | DEPARTMENT | | | | | | OF | | | | | | PATHOLOGY | | + + + + + + | RDW | 18.3 (H) | 11.5 - 15.0 % | [facility] | | | | | | DEPARTMENT | | | | | | OF | | | | | | PATHOLOGY | | + + + + + + | CBC | Final automated | | [facility] | | | COMMENTS | differential | | DEPARTMENT | | | | report. Smear | | OF | | | | reviewed.Final WBC | | PATHOLOGY | | | | Report. | | | | + + + + + + | WHITE CELL | 21.9 (H) | 4.4 - 11.0 K/cu | [facility] | | | COUNT | | mm | DEPARTMENT | | | | | | OF | | | | | | PATHOLOGY | | + + + + + + | PLATELET | 233 | 150 - 400 K/cu | [facility] | | | COUNT | | mm | DEPARTMENT | | | | | | OF | | | | | | PATHOLOGY | | + + + + + + | DIFF | <or= 10% bands seen on | | [facility] | | | COMMENTS | scan.Vacuolated Polys | | DEPARTMENT | | | | present.Smudge cells | | OF | | | | present. | | PATHOLOGY | | + + + + + + + + | Specimen | + + | Blood - Blood | + + + + + | Narrative | Performed At | + + + | * Corrected 11/08/08 06:34: HUI COMMENTS, prev report: Slide | [facility] | | review pending. | DEPARTMENT OF | | | PATHOLOGY | + + + + + + + + | Performing | Address | City/State/Zipcode | Phone Number | | Organization | | | | + + + + + | [facility] | [address] | [place] [address] | | | PATHOLOGY | [address] | | | + + + + + | [facility] | [address] | [place] [address] | | | PATHOLOGY | [address] | | | + + + + + PRODUCT- RED CELLS LEUKOREDUCED (11/08/2008 1:52 AM PDT) + + + + + + | Component | Value | Ref Range | Performed | Pathologist | | | | | At | Signature | + + + + + + | PRODUCT | -1 RED BLOOD | | [facility] | | | DESCRIPTION | CELLS,ADENINE-SALINE | | DEPARTMENT | | | | ADDED,LEUKOCYTES REDUCED | | OF | | | | | | PATHOLOGY | | + + + + + + | PRODUCT | [id number] | | [facility] | | | UNIT # | | | DEPARTMENT | | | | | | OF | | | | | | PATHOLOGY | | + + + + + + | UNIT ABO | A | | [facility] | | | | | | DEPARTMENT | | | | | | OF | | | | | | PATHOLOGY | | + + + + + + | UNIT RH | POS | | [facility] | | | | | | DEPARTMENT | | | | | | OF | | | | | | PATHOLOGY | | + + + + + + | STATUS OF | Presumed Transfused | | [facility] | | | UNIT | | | DEPARTMENT | | | | | | OF | | | | | | PATHOLOGY | | + + + + + + + + | Specimen | + + | | + + + + + + + | Performing | Address | City/State/Zipcode | Phone Number | | Organization | | | | + + + + + | [facility] | [facility] | [place] [address] | | | PATHOLOGY | [address] | | | + + + + + | [facility] | [facility] | [place] [address] | | | PATHOLOGY | [address] | | | + + + + + PRODUCT- RED CELLS LEUKOREDUCED (11/08/2008 1:52 AM PDT) + + + + + + | Component | Value | Ref Range | Performed | Pathologist | | | | | At | Signature | + + + + + + | PRODUCT | -1 RED BLOOD | | [facility] | | | DESCRIPTION | CELLS,ADENINE-SALINE | | DEPARTMENT | | | | ADDED,LEUKOCYTES REDUCED | | OF | | | | | | PATHOLOGY | | + + + + + + | PRODUCT | [id number] | | [facility] | | | UNIT # | | | DEPARTMENT | | | | | | OF | | | | | | PATHOLOGY | | + + + + + + | UNIT ABO | A | | [facility] | | | | | | DEPARTMENT | | | | | | OF | | | | | | PATHOLOGY | | + + + + + + | UNIT RH | POS | | [facility] | | | | | | DEPARTMENT | | | | | | OF | | | | | | PATHOLOGY | | + + + + + + | STATUS OF | Presumed Transfused | | [facility] | | | UNIT | | | DEPARTMENT | | | | | | OF | | | | | | PATHOLOGY | | + + + + + + + + | Specimen | + + | | + + + + + + + | Performing | Address | City/State/Zipcode | Phone Number | | Organization | | | | + + + + + | [facility] DE[facility]MENT [facility] | [address] | [place] [address] | | | PATHOLOGY | [address] | | | + + + + + | [facility] DE[facility]MENT [facility] | [address] | [place] [address] | | | PATHOLOGY | [address] | | | + + + + + CBC, WITH DIFFERENTIAL (11/08/2008 12:48 AM PDT) + + + + + + | Component | Value | Ref Range | Performed | Pathologist | | | | | At | Signature | + + + + + + | WHITE CELL | 16.6 (H) | 4.4 - 11.0 K/cu | [facility] | | | COUNT | | mm | DEPARTMENT | | | | | | OF | | | | | | PATHOLOGY | | + + + + + + | RED CELL | 2.75 (L) | 4.00 - 5.20 | [facility] | | | COUNT | | M/cu mm | DEPARTMENT | | | | | | OF | | | | | | PATHOLOGY | | + + + + + + | HEMOGLOBIN | 7.2 (L) | 12.0 - 16.0 | [facility] | | | | | g/dL | DEPARTMENT | | | | | | OF | | | | | | PATHOLOGY | | + + + + + + | HEMATOCRIT | 21.8 (L) | 36.0 - 46.0 % | [facility] | | | | | | DEPARTMENT | | | | | | OF | | | | | | PATHOLOGY | | + + + + + + | MCV | 79.2 (L) | 80.0 - 96.0 fL | [facility] | | | | | | DEPARTMENT | | | | | | OF | | | | | | PATHOLOGY | | + + + + + + | MCHC | 33.2 (L) | 33.4 - 35.5 | [facility] | | | | | g/dL | DEPARTMENT | | | | | | OF | | | | | | PATHOLOGY | | + + + + + + | RDW | 20.3 (H) | 11.5 - 15.0 % | [facility] | | | | | | DEPARTMENT | | | | | | OF | | | | | | PATHOLOGY | | + + + + + + | PLATELET | 365 | 150 - 400 K/cu | [facility] | | | COUNT | | mm | DEPARTMENT | | | | | | OF | | | | | | PATHOLOGY | | + + + + + + | CBC | Final automated | | [facility] | | | COMMENTS | differential report. | | DEPARTMENT | | | | Smear reviewed. | | OF | | | | | | PATHOLOGY | | + + + + + + | DIFF | <or= 10% bands seen on | | [facility] | | | COMMENTS | scan. | | DEPARTMENT | | | | | | OF | | | | | | PATHOLOGY | | + + + + + + | RBC | Anisocytosis | | [facility] | | | MORPHOLOGY | ++ | | DEPARTMENT | | | | | | OF | | | | | | PATHOLOGY | | | | | | | | | | | | | | | | | | | | | | | | | | | | | | | | | | | | | | | | | | | | | | | | | | | | Macrocytosis | | | | | | + | | | | | | | | | | | | | | | | | | | | | | | | | | | | | | | | | | | | | | | | | | | | | | | | | | | | | | | | | | | | | | | | | | | | | | | | Polychromasia + | | | | + + + + + + + + | Specimen | + + | | + + + + + | Narrative | Performed At | + + + | * Corrected 11/08/08 01:37: HUI COMMENTS, prev report: Slide | [facility] | | review pending. | DEPARTMENT OF | | | PATHOLOGY | + + + + + + + + | Performing | Address | City/State/Zipcode | Phone Number | | Organization | | | | + + + + + | [facility] | [address] | [place] [address] | | | PATHOLOGY | [address] | | | + + + + + | [facility] | [address] | [place] [address] | | | PATHOLOGY | [address] | | | + + + + + DIFFERENTIAL (11/08/2008 12:48 AM PDT) + + + + + + | Component | Value | Ref Range | Performed | Pathologist | | | | | At | Signature | + + + + + + | NEUTROPHIL | 81 (H) | 50 - 70 % | [facility] | | | % | | | DEPARTMENT | | | | | | OF | | | | | | PATHOLOGY | | + + + + + + | LYMPHOCYTE | 12 (L) | 18 - 42 % | [facility] | | | % | | | DEPARTMENT | | | | | | OF | | | | | | PATHOLOGY | | + + + + + + | MONOCYTE % | 7 | 2 - 8 % | [facility] | | | | | | DEPARTMENT | | | | | | OF | | | | | | PATHOLOGY | | + + + + + + | EOS % | 0 (L) | 1 - 3 % | [facility] | | | | | | DEPARTMENT | | | | | | OF | | | | | | PATHOLOGY | | + + + + + + | BASO % | 0 | <3 % | [facility] | | | | | | DEPARTMENT | | | | | | OF | | | | | | PATHOLOGY | | + + + + + + | NEUTROPHIL | 13.5 (H) | 1.8 - 7.7 K/cu | [facility] | | | # | | mm | DEPARTMENT | | | | | | OF | | | | | | PATHOLOGY | | + + + + + + | LYMPHOCYTE | 2.0 | 1.0 - 4.8 K/cu | [facility] | | | # | | mm | DEPARTMENT | | | | | | OF | | | | | | PATHOLOGY | | + + + + + + | MONOCYTE # | 1.2 (H) | <0.9 K/cu mm | [facility] | | | | | | DEPARTMENT | | | | | | OF | | | | | | PATHOLOGY | | + + + + + + | EOS # | 0.0 | <0.6 K/cu mm | [facility] | | | | | | DEPARTMENT | | | | | | OF | | | | | | PATHOLOGY | | + + + + + + | MARCOS # | 0.0 | <0.3 | [facility] | | | | | | DEPARTMENT | | | | | | OF | | | | | | PATHOLOGY | | + + + + + + + + | Specimen | + + | | + + + + + | Narrative | Performed At | + + + | * Corrected 11/08/08 01:37: [facility] COMMENTS, prev report: Slide | [facility] | | review pending. | DEPARTMENT OF | | | PATHOLOGY | + + + + + + + + | Performing | Address | City/State/Zipcode | Phone Number | | Organization | | | | + + + + + | [facility] | [address] | [place] [address] | | | PATHOLOGY | [address] | | | + + + + + | [facility] | [address] | [place] [address] | | | PATHOLOGY | [address] | | | + + + + + SURGICAL PATHOLOGY (11/08/2008) + + + + + + | Component | Value | Ref Range | Performed | Pathologist | | | | | At | Signature | + + + + + + | SURGICAL | SOURCE OF SPECIMEN:A | | [facility] | | | PATHOLOGY | Left lynn arch | | DEPARTMENT | | | | clotSOURCE OF SPECIMEN:B | | OF | | | | Endometrium | | PATHOLOGY | | | | biopsy Final | | | | | | Pathologic | | | | | | Diagnosis:A: Left | | | | | | palmar arch clot, | | | | | | excision: - | | | | | | Thrombus | | | | | | B: Endometrium, | | | | | | biopsy: - | | | | | | 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 | | | | | | Case seen by:Xi | | | | | | Polo Alarcon M.D./Surgical | | | | | | Pathology FellowMegan | | | | | | Renu Osorio M.D., | | | | | | Ph.D./PathologistT:11/12 | | | | | | Clinical | | | | | | History:The patient is a | | | | | | 53-year-old | | | | | | female. Per | | | | | | Epic: Vaginal | | | | | | bleeding with 20week | | | | | | size fibroid uterus, | | | | | | status post Provera | | | | | | treatment. Gross | | | | | | Description:Two | | | | | | specimens are received, | | | | | | A fresh B in formalin, | | | | | | in containers | | | | | | labeledwith the patient | | | | | | name (initials WC) | | | | | | and: A: Left | | | | | | lynn arch | | | | | | clot: Received | | | | | | measuring 1 x 0.3 x 0.1 | | | | | | cm inaggregate are two | | | | | | irregular, | | | | | | dhki-rm-sjpjjalryf, | | | | | | red-young | | | | | | tissues. Theentire | | | | | | specimen is | | | | | | submitted. | | | | | | B: Endometrial | | | | | | biopsy: Received | | | | | | measuring 2.2 x 1.2 x | | | | | | 0.2 cm in aggregateare | | | | | | multiple irregular, | | | | | | rjke-qf-jvbrpzjnxk, | | | | | | translucent, | | | | | | hdt-ql-xsepm | | | | | | redtissues. The | | | | | | entire specimen is | | | | | | submitted. | | | | | | Cassette | | | | | | Index:A: Left lynn | | | | | | arch clot:A1, | | | | | | wrappedB: Endometrial | | | | | | biopsy:B1, filtered and | | | | | | | | | | | | wrappedKRK:MADELINE:tp | | | | | | My electronic | | | | | | signature indicates that | | | | | | I have personally | | | | | | reviewed alldiagnostic | | | | | | slides, the gross and/or | | | | | | microscopic portion of | | | | | | thisreport and | | | | | | formulated the final | | | | | | diagnosis. | | | | | | Rendering | | | | | | Diagnostician: Casandra | | | | | | Hui Osorio Ph.D., | | | | | | M.D.PathologistElectroni | | | | | | андрей Signed 11/12/2008 | | | | + + + + + + + + | Specimen | + + | Other | + + + + + + + | Performing | Address | City/State/Zipcode | Phone Number | | Organization | | | | + + + + + | [facility] | [facility] [facility] | [place] [address] | | | PATHOLOGY | [address] | | | + + + + + | [facility] | [address] | [place] [address] | | | PATHOLOGY | [address] | | | + + + + + PRODUCT- RED CELLS LEUKOREDUCED (11/07/2008 11:14 PM PDT) + + + + + + | Component | Value | Ref Range | Performed | Pathologist | | | | | At | Signature | + + + + + + | PRODUCT | -1 RED BLOOD | | [facility] | | | DESCRIPTION | CELLS,ADENINE-SALINE | | DEPARTMENT | | | | ADDED,LEUKOCYTES REDUCED | | OF | | | | | | PATHOLOGY | | + + + + + + | PRODUCT | [id number] | | [facility] | | | UNIT # | | | DEPARTMENT | | | | | | OF | | | | | | PATHOLOGY | | + + + + + + | UNIT ABO | A | | [facility] | | | | | | DEPARTMENT | | | | | | OF | | | | | | PATHOLOGY | | + + + + + + | UNIT RH | POS | | [facility] | | | | | | DEPARTMENT | | | | | | OF | | | | | | PATHOLOGY | | + + + + + + | STATUS OF | Returned to Blood Bank | | [facility] | | | UNIT | | | DEPARTMENT | | | | | | OF | | | | | | PATHOLOGY | | + + + + + + + + | Specimen | + + | | + + + + + + + | Performing | Address | City/State/Zipcode | Phone Number | | Organization | | | | + + + + + | [facility] | [address] | [place] [address] | | | PATHOLOGY | [address] | | | + + + + + | [facility] | [facility] [facility] | [place] [address] | | | PATHOLOGY | [address] | | | + + + + + PRODUCT- RED CELLS LEUKOREDUCED (11/07/2008 11:14 PM PDT) + + + + + + | Component | Value | Ref Range | Performed | Pathologist | | | | | At | Signature | + + + + + + | PRODUCT | -1 RED BLOOD | | [facility] | | | DESCRIPTION | CELLS,ADENINE-SALINE | | DEPARTMENT | | | | ADDED,LEUKOCYTES REDUCED | | OF | | | | | | PATHOLOGY | | + + + + + + | PRODUCT | [id number] | | [facility] | | | UNIT # | | | DEPARTMENT | | | | | | OF | | | | | | PATHOLOGY | | + + + + + + | UNIT ABO | A | | [facility] | | | | | | DEPARTMENT | | | | | | OF | | | | | | PATHOLOGY | | + + + + + + | UNIT RH | POS | | [facility] | | | | | | DEPARTMENT | | | | | | OF | | | | | | PATHOLOGY | | + + + + + + | STATUS OF | Returned to Blood Bank | | [facility] | | | UNIT | | | DEPARTMENT | | | | | | OF | | | | | | PATHOLOGY | | + + + + + + + + | Specimen | + + | | + + + + + + + | Performing | Address | City/State/Zipcode | Phone Number | | Organization | | | | + + + + + | [facility] | [address] [facility] | [place] [address] | | | PATHOLOGY | [address] | | | + + + + + | [facility] | [address] [facility] | [place] [address] | | | PATHOLOGY | [address] | | | + + + + + VASC LAB ARTER DUPLEX UPPER EXTREMITY LT (11/07/2008 8:21 PM PDT) + + + + + + | Component | Value | Ref Range | Performed | Pathologist | | | | | At | Signature | + + + + + + | VASC LAB | Med Rec No: | | | | | ARTERY | [id number] Name | | | | | DUPLEX | : KELLY MCCLELLAN | | | | | UPPER | Birthday: | | | | | EXTREMITY | 1955 Sex: | | | | | LEFT | F Alias:Patient | | | | | | Location: 7AStatus: | | | | | | Inpatient ActiveOrdering | | | | | | Physician: ROC Sears | | | | | | JEANE RAE VL | | | | | | ARTER DUPLEX UNILAT UE | | | | | | LT completed on 11/07/2008 | | | | | | 8:21 PMAccession # | | | | | | [id number]:UPPER | | | | | | EXTREMITY ARTERIAL | | | | | | DUPLEX | | | | | | STUDY: 11/07/2008 | | | | | | Dictated | | | | | | 11/07/2008FINDINGS: T | | | | | | he left subclavian | | | | | | artery is patent with | | | | | | peak systolicvelocities | | | | | | 101 to 106 | | | | | | cm/sec. Axillary | | | | | | artery peak systolic | | | | | | ozvtimet332 | | | | | | cm/sec. Brachial | | | | | | artery peak systolic | | | | | | velocity 34 to 62 | | | | | | cm/sec.Radial and ulnar | | | | | | arteries occluded | | | | | | bilaterally.IMPRESSION:A | | | | | | bnormal examination with | | | | | | evidence of left radial | | | | | | and ulnar | | | | | | arteryocclusion. Ther | | | | | | e is an elevated | | | | | | velocity of 274 cm/sec | | | | | | in the leftaxillary | | | | | | artery.END IMPRESSIONI | | | | | | have personally viewed | | | | | | this procedure/exam and | | | | | | reviewed this | | | | | | report.STATUS FINAL / | | | | | | Dr. MISBAH GARZA | | | | | | STATUS PRELIMINARY - | | | | | | UNSIGNED/ Maegan Mauricio | | | | + + + + + + + + | Specimen | + + | | + + + +---------+ + + | Performing | Address | City/State/Zipcode | Phone Number | | Organization | | | | + +---------+ + + | [facility] | | | | | RADIOLOGY | | | | + +---------+ + + PRODUCT- RED CELLS LEUKOREDUCED (11/07/2008 7:46 PM PDT) + + + + + + | Component | Value | Ref Range | Performed | Pathologist | | | | | At | Signature | + + + + + + | PRODUCT | -1 RED BLOOD | | [facility] | | | DESCRIPTION | CELLS,ADENINE-SALINE | | DEPARTMENT | | | | ADDED,LEUKOCYTES REDUCED | | OF | | | | | | PATHOLOGY | | + + + + + + | PRODUCT | [id number] | | [facility] | | | UNIT # | | | DEPARTMENT | | | | | | OF | | | | | | PATHOLOGY | | + + + + + + | UNIT ABO | A | | [facility] | | | | | | DEPARTMENT | | | | | | OF | | | | | | PATHOLOGY | | + + + + + + | UNIT RH | POS | | [facility] | | | | | | DEPARTMENT | | | | | | OF | | | | | | PATHOLOGY | | + + + + + + | STATUS OF | Returned to Blood Bank | | [facility] | | | UNIT | | | DEPARTMENT | | | | | | OF | | | | | | PATHOLOGY | | + + + + + + + + | Specimen | + + | | + + + + + + + | Performing | Address | City/State/Zipcode | Phone Number | | Organization | | | | + + + + + | [facility] | [address] | [place] [address] | | | PATHOLOGY | [address] | | | + + + + + | [facility] | [address] [facility] | [place] [address] | | | PATHOLOGY | [address] | | | + + + + + PRODUCT- RED CELLS LEUKOREDUCED (11/07/2008 7:46 PM PDT) + + + + + + | Component | Value | Ref Range | Performed | Pathologist | | | | | At | Signature | + + + + + + | PRODUCT | -1 RED BLOOD | | [facility] | | | DESCRIPTION | CELLS,ADENINE-SALINE | | DEPARTMENT | | | | ADDED,LEUKOCYTES REDUCED | | OF | | | | | | PATHOLOGY | | + + + + + + | PRODUCT | [id number] | | [facility] | | | UNIT # | | | DEPARTMENT | | | | | | OF | | | | | | PATHOLOGY | | + + + + + + | UNIT ABO | A | | [facility] | | | | | | DEPARTMENT | | | | | | OF | | | | | | PATHOLOGY | | + + + + + + | UNIT RH | POS | | [facility] | | | | | | DEPARTMENT | | | | | | OF | | | | | | PATHOLOGY | | + + + + + + | STATUS OF | Presumed Transfused | | [facility] | | | UNIT | | | DEPARTMENT | | | | | | OF | | | | | | PATHOLOGY | | + + + + + + + + | Specimen | + + | | + + + + + + + | Performing | Address | City/State/Zipcode | Phone Number | | Organization | | | | + + + + + | [facility] | [address] | [place] [address] | | | PATHOLOGY | [address] | | | + + + + + | [facility] | [address] | [place] [address] | | | PATHOLOGY | [address] | | | + + + + + TOTAL RESULTS FOR,URINE (11/07/2008 6:30 PM PDT) + + + + + + | Component | Value | Ref Range | Performed | Pathologist | | | | | At | Signature | + + + + + + | COLLECTION | RandomComment: | hr | [facility] | | | INTERVAL, | Normal values based on | | DEPARTMENT | | | UR | 24 Hrs. collection | | OF | | | | interval. Patient | | PATHOLOGY | | | | results are | | | | | | calculated from actual | | | | | | collection interval | | | | | | andvolume. | | | | + + + + + + | URINE | Spot | mL | [facility] | | | VOLUME - | | | DEPARTMENT | | | [facility] | | | OF | | | | | | PATHOLOGY | | + + + + + + + + | Specimen | + + | | + + + + + + + | Performing | Address | City/State/Zipcode | Phone Number | | Organization | | | | + + + + + | [facility] | [address] | [place] [address] | | | PATHOLOGY | [address] | | | + + + + + | [facility] | [address] | [place] [address] | | | PATHOLOGY | [address] | | | + + + + + CREATININE, URINE (11/07/2008 6:30 PM PDT) + +--------+ + + + | Component | Value | Ref Range | Performed | Pathologist | | | | | At | Signature | + +--------+ + + + | CREATININE | 104.67 | mg/dL | [facility] | | | CONC UR | | | DEPARTMENT | | | | | | OF | | | | | | PATHOLOGY | | + +--------+ + + + + + | Specimen | + + | Urine - Urine | + + + + + + + | Performing | Address | City/State/Zipcode | Phone Number | | Organization | | | | + + + + + | [facility] | [address] | [place] [address] | | | PATHOLOGY | [address] | | | + + + + + | [facility] | [address] [facility] | [place] [address] | | | PATHOLOGY | [address] | | | + + + + + MICROALBUMIN/CREATININE RATIO (RANDOM URINE) (11/07/2008 6:30 PM PDT) + +--------+ + + + | Component | Value | Ref Range | Performed | Pathologist | | | | | At | Signature | + +--------+ + + + | MICROALBUMI | 49 (H) | <21 mg/L | | | | N, | | | | | | URINE-RANDO | | | | | | M | | | | | + +--------+ + + + | URINE | 117.8 | mg/dL | | | | CREATININE | | | | | + +--------+ + + + | MICROALBUMI | 42 (H) | <31 mg/g | | | | N/CREAT | | | | | | RATIO | | | | | + +--------+ + + + + + | Specimen | + + | Urine - Urine | + + + + + | Narrative | Performed At | + + + | [facility] ([facility]) [place] | MELANIE | | [place] [address] [facility] | DEPARTMENT OF | | [place] [address] | PATHOLOGY | + + + + + + + + | Performing | Address | City/State/Zipcode | Phone Number | | Organization | | | | + + + + + | [facility] | [address] | [place] [address] | | | PATHOLOGY | [address] | | | + + + + + | [facility] | [address] | [place] [address] | | | PATHOLOGY | [address] | | | + + + + + HEMATOCRIT (11/07/2008 6:29 PM PDT) + + + + + + | Component | Value | Ref Range | Performed | Pathologist | | | | | At | Signature | + + + + + + | HEMATOCRIT | 26.6 (L) | 36.0 - 46.0 % | [facility] | | | | | | DEPARTMENT | | | | | | OF | | | | | | PATHOLOGY | | + + + + + + + + | Specimen | + + | Blood - Blood | + + + + + + + | Performing | Address | City/State/Zipcode | Phone Number | | Organization | | | | + + + + + | [facility] | [address] | [place] [address] | | | PATHOLOGY | [address] | | | + + + + + | [facility] | [address] [facility] | [place] [address] | | | PATHOLOGY | [address] | | | + + + + + APTT (ACT. PART. THROMBO TIME) (11/07/2008 6:29 PM PDT) + + + + + + | Component | Value | Ref Range | Performed | Pathologist | | | | | At | Signature | + + + + + + | APTT | 30.0Comment: | 26.0 - 36.0 | [facility] | | | | APTT | seconds | DEPARTMENT | | | | Therapeutic | | OF | | | | Range | | PATHOLOGY | | | | | | | | | | (75-120) | | | | | | sec | | | | | | Heparin levels of | | | | | | 0.35-0.7 U/mL | | | | + + + + + + + + | Specimen | + + | Blood - Blood | + + + + + + + | Performing | Address | City/State/Zipcode | Phone Number | | Organization | | | | + + + + + | [facility] | [address] | [place] [address] | | | PATHOLOGY | [address] | | | + + + + + | [facility] | [address] | [place] [address] | | | PATHOLOGY | [address] | | | + + + + + PRODUCT- RED CELLS LEUKOREDUCED (11/07/2008 2:49 PM PDT) + + + + + + | Component | Value | Ref Range | Performed | Pathologist | | | | | At | Signature | + + + + + + | PRODUCT | -1 RED BLOOD | | [facility] | | | DESCRIPTION | CELLS,ADENINE-SALINE | | DEPARTMENT | | | | ADDED,LEUKOCYTES REDUCED | | OF | | | | | | PATHOLOGY | | + + + + + + | PRODUCT | [id number] | | [facility] | | | UNIT # | | | DEPARTMENT | | | | | | OF | | | | | | PATHOLOGY | | + + + + + + | UNIT ABO | A | | [facility] | | | | | | DEPARTMENT | | | | | | OF | | | | | | PATHOLOGY | | + + + + + + | UNIT RH | POS | | [facility] | | | | | | DEPARTMENT | | | | | | OF | | | | | | PATHOLOGY | | + + + + + + | STATUS OF | Presumed Transfused | | [facility] | | | UNIT | | | DEPARTMENT | | | | | | OF | | | | | | PATHOLOGY | | + + + + + + + + | Specimen | + + | | + + + + + + + | Performing | Address | City/State/Zipcode | Phone Number | | Organization | | | | + + + + + | [facility] | [facility] [facility] | [place] [address] | | | PATHOLOGY | [address] | | | + + + + + | [facility] | [facility] [facility] | [place] [address] | | | PATHOLOGY | [address] | | | + + + + + APTT (ACT. PART. THROMBO TIME) (11/07/2008 2:00 PM PDT) + + + + + + | Component | Value | Ref Range | Performed | Pathologist | | | | | At | Signature | + + + + + + | APTT | 28.2Comment: | 26.0 - 36.0 | [facility] | | | | APTT | seconds | DEPARTMENT | | | | Therapeutic | | OF | | | | Range | | PATHOLOGY | | | | | | | | | | (75-120) | | | | | | sec | | | | | | Heparin levels of | | | | | | 0.35-0.7 U/mL | | | | + + + + + + + + | Specimen | + + | | + + + + + + + | Performing | Address | City/State/Zipcode | Phone Number | | Organization | | | | + + + + + | [facility] | [address] [facility] | [place] [address] | | | PATHOLOGY | [address] | | | + + + + + | [facility] | [address] [facility] | [place] [address] | | | PATHOLOGY | [address] | | | + + + + + APTT (ACT. PART. THROMBO TIME) (11/07/2008 1:00 PM PDT) + + + + + + | Component | Value | Ref Range | Performed | Pathologist | | | | | At | Signature | + + + + + + | APTT | Imp ratio | 26.0 - 36.0 | [facility] | | | | | seconds | DEPARTMENT | | | | | | OF | | | | | | PATHOLOGY | | + + + + + + + + | Specimen | + + | Blood - Blood | + + + + + + + | Performing | Address | City/State/Zipcode | Phone Number | | Organization | | | | + + + + + | [facility] | [address] | [place] [address] | | | PATHOLOGY | [address] | | | + + + + + | [facility] | [address] | [place] [address] | | | PATHOLOGY | [address] | | | + + + + + APTT (ACT. PART. THROMBO TIME) (11/07/2008 12:01 PM PDT) + + + + + + | Component | Value | Ref Range | Performed | Pathologist | | | | | At | Signature | + + + + + + | APTT | See cmnt | 26.0 - 36.0 | [facility] | | | | | seconds | DEPARTMENT | | | | | | OF | | | | | | PATHOLOGY | | + + + + + + + + | Specimen | + + | Blood - Blood | + + + + + | Narrative | Performed At | + + + | Staff or dialysis draw required. | [facility] | | | DEPARTMENT OF | | | PATHOLOGY | + + + + + + + + | Performing | Address | City/State/Zipcode | Phone Number | | Organization | | | | + + + + + | [facility] | [address] | [place] [address] | | | PATHOLOGY | [address] | | | + + + + + | [facility] | [address] | [place] [address] | | | PATHOLOGY | [address] | | | + + + + + ARTERIO,HAND/ARM, UNI (11/07/2008 10:37 AM PDT) + + + + + + | Component | Value | Ref Range | Performed | Pathologist | | | | | At | Signature | + + + + + + | [facility] | Procedure: Left brachial | | | | | D/ARM, UNI | arteriogram, | | | | | | catheterization of the | | | | | | leftradial and left on | | | | | | our arteries with | | | | | | instillation of TPA, | | | | | | initiationof a | | | | | | fibrinolytic effusion in | | | | | | the distal left | | | | | | brachial arteryPrimary | | | | | | linotypist: Varun | | | | | | Aguilar MurilloGovernor Assembler | | | | | | linotypist: Niels | | | | | | Aguilar MaradiagaAttending | | | | | | linotypist: Niels | | | | | | Aguilar MaradiagaPreoperative | | | | | | diagnosis: Left hand | | | | | | ischemia with recent | | | | | | history of,from a horse | | | | | | bitePostoperative | | | | | | diagnosis: 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 Percutaneous | | | | | | introduction of a | | | | | | 4-British catheter | | | | | | intothe right common | | | | | | femoral arteryOperation | | | | | | 2. Catheterization of | | | | | | the left brachial | | | | | | arteryOperation | | | | | | 3. Left brachial | | | | | | arteriogramOperation | | | | | | 4. Catheterization of | | | | | | the left ulnar | | | | | | arteryOperation | | | | | | 5. Instillation of 6 | | | | | | mg of TPA along the | | | | | | length of theleft ulnar | | | | | | arteryOperation | | | | | | 6. Catheterization of | | | | | | the left radial | | | | | | arteryOperation | | | | | | 7. Installation of 6 | | | | | | mg of TPA from the deep | | | | | | palmar archto the area | | | | | | of occlusion of the left | | | | | | radial arteryOperation | | | | | | 8. Follow-up left | | | | | | brachial | | | | | | arteriogramOperation | | | | | | 9. Initiation of a | | | | | | fibrinolytic | | | | | | dripIndications:The | | | | | | patient is a 53-year-old | | | | | | woman who suffered a | | | | | | horse bite of herleft | | | | | | forearm on the ulnar | | | | | | aspect. She is | | | | | | referred with a | | | | | | tentativediagnosis of | | | | | | thrombosis of the ulnar | | | | | | artery and hand | | | | | | ischemia.Procedure:Using | | | | | | the right common | | | | | | femoral arterial | | | | | | approach and a | | | | | | 4-Frenchcatheter the | | | | | | distal portion of the | | | | | | left brachial artery | | | | | | wascatheterized and an | | | | | | angiogram done. Next | | | | | | a microcatheter | | | | | | wasadvanced into the | | | | | | thrombosed left ulnar | | | | | | artery to approximately | | | | | | themid forearm | | | | | | level. The thrombus | | | | | | in the artery was | | | | | | infused with 6 mgof | | | | | | TPA. The procedure | | | | | | was repeated on the left | | | | | | radial artery | | | | | | withadvancement of the | | | | | | microcatheter to the | | | | | | level of the deep | | | | | | Palmorearch. The | | | | | | thrombosed portion of | | | | | | the radial artery was | | | | | | infused with 6mg of | | | | | | TPA. A follow-up left | | | | | | brachial arteriogram | | | | | | was performed and | | | | | | afibrinolytic infusion | | | | | | was initiated through | | | | | | the 4-British | | | | | | catheterthat was located | | | | | | just proximal to the | | | | | | brachial artery | | | | | | bifurcation.There were | | | | | | no | | | | | | complications. Attend | | | | | | ing physician was | | | | | | present andparticipated | | | | | | in the entire | | | | | | procedure. Medication | | | | | | s given were present2 | | | | | | mg, fentanyl 100 mcg, | | | | | | heparin 2000 units, TPA | | | | | | 12 mg and Zofran | | | | | | 4mg.Findings:Initial | | | | | | left brachial | | | | | | arteriography shows | | | | | | occlusion of the | | | | | | leftradial artery | | | | | | approximately 5 cm from | | | | | | the left wrist and | | | | | | occlusion ofthe ulnar | | | | | | artery in its proximal | | | | | | portion. There is no | | | | | | visualizedmajor arteries | | | | | | filling in the left | | | | | | hand. Follow-up | | | | | | arteriographydemonstrate | | | | | | s essentially similar | | | | | | findings.Discussion:The | | | | | | findings of occlusion of | | | | | | both the radial and | | | | | | ulnar arteries | | | | | | isunexpected with the | | | | | | history of a horse | | | | | | bite. These findings | | | | | | are moretypical of | | | | | | emboli from a proximal | | | | | | source trashing the | | | | | | arterial supplyto the | | | | | | left hand. Following | | | | | | fibrinolysis or | | | | | | thrombectomy, | | | | | | uponwithdrawal of the | | | | | | catheter study of the | | | | | | proximal subclavian | | | | | | artery isindicated to | | | | | | exclude a source of | | | | | | emboli.Impression:1. | | | | | | extensive thrombosis of | | | | | | the left radial and | | | | | | ulnar | | | | | | arteries2. Initiation | | | | | | of a fibrinolytic | | | | | | infusion with TPASTATUS | | | | | | FINAL / Dr. RUGGIERO | | | | | | ANMOL | | | | + + + + + + + + | Specimen | + + | | + + + +---------+ + + | Performing | Address | City/State/Zipcode | Phone Number | | Organization | | | | + +---------+ + + | [facility] | | | | | [facility]IOLOG[facility] | | | | + +---------+ + + APTT (ACT. PART. THROMBO TIME) (11/07/2008 8:31 AM PDT) + + + + + + | Component | Value | Ref Range | Performed | Pathologist | | | | | At | Signature | + + + + + + | APTT | 31.2Comment: | 26.0 - 36.0 | [facility] | | | | APTT | seconds | DEPARTMENT | | | | Therapeutic | | OF | | | | Range | | PATHOLOGY | | | | | | | | | | (75-120) | | | | | | sec | | | | | | Heparin levels of | | | | | | 0.35-0.7 U/mL | | | | + + + + + + + + | Specimen | + + | | + + + + + + + | Performing | Address | City/State/Zipcode | Phone Number | | Organization | | | | + + + + + | [facility] | [phone] | [place] [address] | | | PATHOLOGY | [address] | | | + + + + + | [facility] | [id number] | [place] [address] | | | PATHOLOGY | [address] | | | + + + + + 12 LEAD ECG (11/07/2008 7:00 AM PDT) + + + + + + | Component | Value | Ref Range | Performed | Pathologist | | | | | At | Signature | + + + + + + | VENTRICULAR | 86 | BPM | [facility] | | | RATE | | | OF | | | | | | CARDIOLOGY | | + + + + + + | ATRIAL RATE | 86 | BPM | [facility] | | | | | | OF | | | | | | CARDIOLOGY | | + + + + + + | P-R | 128 | ms | [facility] | | | INTERVAL | | | OF | | | | | | CARDIOLOGY | | + + + + + + | QRS | 86 | ms | [facility] | | | DURATION | | | OF | | | | | | CARDIOLOGY | | + + + + + + | QT | 374 | ms | [facility] | | | | | | OF | | | | | | CARDIOLOGY | | + + + + + + | QTC | 447 | ms | [facility] | | | | | | OF | | | | | | CARDIOLOGY | | + + + + + + | P AXIS | 60 | degrees | [facility] | | | | | | OF | | | | | | CARDIOLOGY | | + + + + + + | R AXIS | 46 | degrees | [facility] | | | | | | OF | | | | | | CARDIOLOGY | | + + + + + + | T AXIS | -42 | degrees | [facility] | | | | | | OF | | | | | | CARDIOLOGY | | + + + + + + | EKG | Normal sinus | | [facility] | | | DIAGNOSIS | rhythmNonspecific T wave | | OF | | | | abnormalityAbnormal | | CARDIOLOGY | | | | ECG"I have personally | | | | | | interpreted this report, | | | | | | either alone or with a | | | | | | trainee."Confirmed by | | | | | | ANALI SCHMIDT ([id number]) | | | | | | on 07-Nov-2008 16:07:37 | | | | + + + + + + | LINK TO | | | [facility] | | | [facility] | | | OF | | | (ECG | | | CARDIOLOGY | | | VIEWER) | | | | | + + + + + + + + | Specimen | + + | | + + + + + | Narrative | Performed At | + + + | Please click | [facility] | | on view image for the detailed interpretation from [employer] results. | CARDIOLOGY | | | | + + + + + + + + | Performing | Address | City/State/Zipcode | Phone Number | | Organization | | | | + + + + + | [facility] | [address] | [place], [place] | | | CARDIOLOGY | [address] | [address] | | + + + + + | [facility] | [address] | [place], [place] | | | CARDIOLOGY | [address] | [address] | | + + + + + VASC LAB PORTABLE VEIN MAPPING LOWER EXTREMITY BILATERAL (11/07/2008 6:22 AM PDT) + + + + + + | Component | Value | Ref Range | Performed | Pathologist | | | | | At | Signature | + + + + + + | VASC LAB | Med Rec No: | | | | | PORTABLE | [id number] Name | | | | | VEIN | : KLELY MCCLELLAN | | | | | MAPPING | Birthday: | | | | | LOWER | 1955 Sex: | | | | | EXTREMITY | F Alias:Patient | | | | | BILATERAL | Location: [address] [place], [place] [address]: | | | | | | Inpatient ActiveOrdering | | | | | | Physician: ROC Sears | | | | | | Aguilar RAEVVMLBP VL | | | | | | PORT VEIN MAPPING BILAT | | | | | | LE completed on 11/07/2008 | | | | | | 6:22 AMAccession # | | | | | | [id number]:LEG VEIN | | | | | | MAPPIN11/07/2008 | | | | | | Dictated | | | | | | 11/07/2008FINDINGS: I | | | | | | n the right leg, the | | | | | | proximal greater | | | | | | saphenous vein ispatent | | | | | | for a length of 35 cm | | | | | | measuring 2.4 to 5.7 mm | | | | | | in diameter.There are | | | | | | multiple branches | | | | | | further distally. In | | | | | | the left leg, thegreater | | | | | | saphenous vein is | | | | | | patent proximally for a | | | | | | length of 11 cmmeasuring | | | | | | 2.2 to 4.3 mm in | | | | | | diameter. There are | | | | | | multiple branchesfurther | | | | | | | | | | | | distally.IMPRESSION:Lowe | | | | | | r extremity vein mapping | | | | | | with length and | | | | | | diameter measurements | | | | | | asnoted above.END | | | | | | IMPRESSIONI have | | | | | | personally viewed this | | | | | | procedure/exam and | | | | | | reviewed this | | | | | | report.STATUS FINAL / | | | | | | Dr. MISBAH SHRESTHA | | | | | | KAYLASTATUS PRELIMINARY | | | | | | - UNSIGNED / Mercedes | | | | | | Siegel | | | | + + + + + + + + | Specimen | + + | | + + + +---------+ + + | Performing | Address | City/State/Zipcode | Phone Number | | Organization | | | | + +---------+ + + | [facility] | | | | | RADIOLOGY | | | | + +---------+ + + DIFFERENTIAL (11/07/2008 6:06 AM PDT) + + + + + + | Component | Value | Ref Range | Performed | Pathologist | | | | | At | Signature | + + + + + + | NEUTROPHIL | 72 (H) | 50 - 70 % | [facility] | | | % | | | DEPARTMENT | | | | | | OF | | | | | | PATHOLOGY | | + + + + + + | LYMPHOCYTE | 20 | 18 - 42 % | [facility] | | | % | | | DEPARTMENT | | | | | | OF | | | | | | PATHOLOGY | | + + + + + + | MONOCYTE % | 7 | 2 - 8 % | [facility] | | | | | | DEPARTMENT | | | | | | OF | | | | | | PATHOLOGY | | + + + + + + | EOS % | 0 (L) | 1 - 3 % | [facility] | | | | | | DEPARTMENT | | | | | | OF | | | | | | PATHOLOGY | | + + + + + + | BASO % | 0 | <3 % | [facility] | | | | | | DEPARTMENT | | | | | | OF | | | | | | PATHOLOGY | | + + + + + + | NEUTROPHIL | 11.2 (H) | 1.8 - 7.7 K/cu | [facility] | | | # | | mm | DEPARTMENT | | | | | | OF | | | | | | PATHOLOGY | | + + + + + + | LYMPHOCYTE | 3.1 | 1.0 - 4.8 K/cu | [facility] | | | # | | mm | DEPARTMENT | | | | | | OF | | | | | | PATHOLOGY | | + + + + + + | MONOCYTE # | 1.1 (H) | <0.9 K/cu mm | [facility] | | | | | | DEPARTMENT | | | | | | OF | | | | | | PATHOLOGY | | + + + + + + | EOS # | 0.0 | <0.6 K/cu mm | [facility] | | | | | | DEPARTMENT | | | | | | OF | | | | | | PATHOLOGY | | + + + + + + | BASO # | 0.0 | <0.3 | [facility] | | | | | | DEPARTMENT | | | | | | OF | | | | | | PATHOLOGY | | + + + + + + + + | Specimen | + + | | + + + + + + + | Performing | Address | City/State/Zipcode | Phone Number | | Organization | | | | + + + + + | [facility] | [address] | [place] [address] | | | PATHOLOGY | [address] | | | + + + + + | [facility] | [address] | [place] [address] | | | PATHOLOGY | [address] | | | + + + + + CBC ONLY (11/07/2008 6:06 AM PDT) + + + + + + | Component | Value | Ref Range | Performed | Pathologist | | | | | At | Signature | + + + + + + | WHITE CELL | 15.6 (H) | 4.4 - 11.0 K/cu | [facility] | | | COUNT | | mm | DEPARTMENT | | | | | | OF | | | | | | PATHOLOGY | | + + + + + + | RED CELL | 3.26 (L) | 4.00 - 5.20 | [facility] | | | COUNT | | M/cu mm | DEPARTMENT | | | | | | OF | | | | | | PATHOLOGY | | + + + + + + | HEMOGLOBIN | 7.6 (L) | 12.0 - 16.0 | [facility] | | | | | g/dL | DEPARTMENT | | | | | | OF | | | | | | PATHOLOGY | | + + + + + + | HEMATOCRIT | 23.5 (L) | 36.0 - 46.0 % | [facility] | | | | | | DEPARTMENT | | | | | | OF | | | | | | PATHOLOGY | | + + + + + + | MCV | 72.3 (L) | 80.0 - 96.0 fL | [facility] | | | | | | DEPARTMENT | | | | | | OF | | | | | | PATHOLOGY | | + + + + + + | MCHC | 32.4 (L) | 33.4 - 35.5 | [facility] | | | | | g/dL | DEPARTMENT | | | | | | OF | | | | | | PATHOLOGY | | + + + + + + | RDW | 14.8 | 11.5 - 15.0 % | [facility] | | | | | | DEPARTMENT | | | | | | OF | | | | | | PATHOLOGY | | + + + + + + | PLATELET | 531 (H) | 150 - 400 K/cu | [facility] | | | COUNT | | mm | DEPARTMENT | | | | | | OF | | | | | | PATHOLOGY | | + + + + + + | RBC | Microcytosis ++ | | [facility] | | | MORPHOLOGY | | | DEPARTMENT | | | | | | OF | | | | | | PATHOLOGY | | + + + + + + + + | Specimen | + + | Blood - Blood | + + + + + + + | Performing | Address | City/State/Zipcode | Phone Number | | Organization | | | | + + + + + | [facility] | [address] | [place] [address] | | | PATHOLOGY | [address] | | | + + + + + | [facility] | [address] | [place] [address] | | | PATHOLOGY | [address] | | | + + + + + PHOSPHORUS, PLASMA (11/07/2008 6:06 AM PDT) + +-------+ + + + | Component | Value | Ref Range | Performed | Pathologist | | | | | At | Signature | + +-------+ + + + | PHOSPHORUS, | 3.1 | 2.4 - 4.7 mg/dL | [facility] | | | PLASMA | | | DEPARTMENT | | | (LAB) | | | OF | | | | | | PATHOLOGY | | + +-------+ + + + + + | Specimen | + + | Blood - Blood | + + + + + + + | Performing | Address | City/State/Zipcode | Phone Number | | Organization | | | | + + + + + | [facility] | [address] | [place] [address] | | | PATHOLOGY | [address] | | | + + + + + | [facility] | [address] | [place] [address] | | | PATHOLOGY | [address] | | | + + + + + MAGNESIUM, PLASMA (11/07/2008 6:06 AM PDT) + +-------+ + + + | Component | Value | Ref Range | Performed | Pathologist | | | | | At | Signature | + +-------+ + + + | MAGNESIUM,P | 2.3 | 1.8 - 2.5 mg/dL | [facility] | | | LASMA | | | DEPARTMENT | | | | | | OF | | | | | | PATHOLOGY | | + +-------+ + + + + + | Specimen | + + | Blood - Blood | + + + + + + + | Performing | Address | City/State/Zipcode | Phone Number | | Organization | | | | + + + + + | [facility] | [address] | [place] [address] | | | PATHOLOGY | [address] | | | + + + + + | [facility] | [address] | [place] [address] | | | PATHOLOGY | [address] | | | + + + + + BASIC METABOLIC SET (NA, K, CL, TCO2, BUN, CR, GLU, CA) (11/07/2008 6:06 AM PDT) + +---------+ + + + | Component | Value | Ref Range | Performed | Pathologist | | | | | At | Signature | + +---------+ + + + | GLUCOSE, | 296 (H) | 60 - 99 mg/dL | [facility] | | | PLASMA | | | DEPARTMENT | | | (LAB) | | | OF | | | | | | PATHOLOGY | | + +---------+ + + + | BUN, PLASMA | 13 | 6 - 20 mg/dL | [facility] | | | (LAB) | | | DEPARTMENT | | | | | | OF | | | | | | PATHOLOGY | | + +---------+ + + + | CREATININE | 0.65 | 0.60 - 1.10 | [facility] | | | PLASMA | | mg/dL | DEPARTMENT | | | (LAB) | | | OF | | | | | | PATHOLOGY | | + +---------+ + + + | SODIUM, | 135 | 134 - 143 | [facility] | | | PLASMA | | mmol/L | DEPARTMENT | | | (LAB) | | | OF | | | | | | PATHOLOGY | | + +---------+ + + + | POTASSIUM, | 3.6 | 3.4 - 5.0 | [facility] | | | PLASMA | | mmol/L | DEPARTMENT | | | (LAB) | | | OF | | | | | | PATHOLOGY | | + +---------+ + + + | CHLORIDE, | 103 | 97 - 108 mmol/L | [facility] | | | PLASMA | | | DEPARTMENT | | | (LAB) | | | OF | | | | | | PATHOLOGY | | + +---------+ + + + | CALCIUM, | 8.8 | 8.6 - 10.2 | [facility] | | | PLASMA | | mg/dL | DEPARTMENT | | | (LAB) | | | OF | | | | | | PATHOLOGY | | + +---------+ + + + | TOTAL CO2, | 23 | 23 - 31 mmol/L | [facility] | | | PLASMA | | | DEPARTMENT | | | (LAB) | | | OF | | | | | | PATHOLOGY | | + +---------+ + + + + + | Specimen | + + | Blood - Blood | + + + + + + + | Performing | Address | City/State/Zipcode | Phone Number | | Organization | | | | + + + + + | [facility] | [address] | [place] [address] | | | PATHOLOGY | [address] | | | + + + + + | [facility] | [address] | [place] [address] | | | PATHOLOGY | [address] | | | + + + + + CBC, WITH DIFFERENTIAL (11/07/2008 6:06 AM PDT) + + + + + + | Component | Value | Ref Range | Performed | Pathologist | | | | | At | Signature | + + + + + + | WHITE CELL | 15.6 (H) | 4.4 - 11.0 K/cu | [facility] | | | COUNT | | mm | DEPARTMENT | | | | | | OF | | | | | | PATHOLOGY | | + + + + + + | RED CELL | 3.26 (L) | 4.00 - 5.20 | [facility] | | | COUNT | | M/cu mm | DEPARTMENT | | | | | | OF | | | | | | PATHOLOGY | | + + + + + + | HEMOGLOBIN | 7.6 (L) | 12.0 - 16.0 | [facility] | | | | | g/dL | DEPARTMENT | | | | | | OF | | | | | | PATHOLOGY | | + + + + + + | HEMATOCRIT | 23.5 (L) | 36.0 - 46.0 % | [facility] | | | | | | DEPARTMENT | | | | | | OF | | | | | | PATHOLOGY | | + + + + + + | MCV | 72.3 (L) | 80.0 - 96.0 fL | [facility] | | | | | | DEPARTMENT | | | | | | OF | | | | | | PATHOLOGY | | + + + + + + | MCHC | 32.4 (L) | 33.4 - 35.5 | [facility] | | | | | g/dL | DEPARTMENT | | | | | | OF | | | | | | PATHOLOGY | | + + + + + + | RDW | 14.8 | 11.5 - 15.0 % | [facility] | | | | | | DEPARTMENT | | | | | | OF | | | | | | PATHOLOGY | | + + + + + + | PLATELET | 531 (H) | 150 - 400 K/cu | [facility] | | | COUNT | | mm | DEPARTMENT | | | | | | OF | | | | | | PATHOLOGY | | + + + + + + | RBC | Microcytosis ++ | | [facility] | | | MORPHOLOGY | | | DEPARTMENT | | | | | | OF | | | | | | PATHOLOGY | | + + + + + + + + | Specimen | + + | Blood - Blood | + + + + + + + | Performing | Address | City/State/Zipcode | Phone Number | | Organization | | | | + + + + + | [facility] | [address] [facility] | [place] [address] | | | PATHOLOGY | [address] | | | + + + + + | [facility] | [address] [facility] | [place] [address] | | | PATHOLOGY | [address] | | | + + + + + RESP CARE THERAPY (11/07/2008 5:27 AM PDT) + + + + + + | Component | Value | Ref Range | Performed | Pathologist | | | | | At | Signature | + + + + + + | RESPIRATORY | Oxygen device on | | [facility] | | | CARE | standby, nasal | | RESPIRATORY | | | | canula.Electronically | | THERAPY | | | | Signed by: Quincy | | | | | | SHAQUILLE Mohan | | | | + + + + + + + + | Specimen | + + | | + + + + + + + | Performing | Address | City/State/Zipcode | Phone Number | | Organization | | | | + + + + + | [facility] | [address] | [place], [place] | | | THERAPY | [address] | [address] | | + + + + + | [facility] | [address] | [place], [place] | | | THERAPY | [address] | [address] | | + + + + + X-RAY HAND 2 VIEWS LEFT (11/07/2008 2:58 AM PDT) + + + + + + | Component | Value | Ref Range | Performed | Pathologist | | | | | At | Signature | + + + + + + | HAND 2 | STUDY: HAND 2 VIEWS LEFT | | | | | VIEWS LEFT | 11/07/08 | | | | | | 02:58:00COMPARISON: | | | | | | None.INDICATION: | | | | | | Numbness and weakness | | | | | | status post horse | | | | | | bite.FINDINGS:There is | | | | | | joint space narrowing | | | | | | and spurring of the | | | | | | distalinterphalangeal | | | | | | joint of the little | | | | | | finger, with radial | | | | | | angulation ofthe distal | | | | | | phalanx. There is | | | | | | spurring noted in the | | | | | | ring finger,middle | | | | | | finger and index finger | | | | | | distal interphalangeal | | | | | | joints, | | | | | | thumbinterphalangeal | | | | | | joint and first | | | | | | carpometacarpal | | | | | | joint. Negativeulnar | | | | | | variance is | | | | | | noted. There is no | | | | | | fracture, focal | | | | | | destructivelesion, | | | | | | radiopaque foreign body | | | | | | or soft tissue | | | | | | abnormality.IMPRESSION:M | | | | | | ild degenerative joint | | | | | | disease involving the | | | | | | distal | | | | | | interphalangealjoints, | | | | | | the thumb | | | | | | interphalangeal joint | | | | | | and first | | | | | | carpometacarpaljoint.I | | | | | | have personally viewed | | | | | | this procedure/exam and | | | | | | reviewed this | | | | | | report.Author: ANALI Bolden | | | | | | Kamryn JANSEN: | | | | | | REA IBARRA, | | | | | | M.D.STATUS FINAL / | | | | | | REA ROMERO | | | | | | PENDING FINAL APPROVAL / | | | | | | Dr. ANALI Bolden | | | | | | AIDAN PRELIMINARY | | | | | | - UNSIGNED / | | | | | | ANALI JANSEN | | | | + + + + + + + + | Specimen | + + | | + + + +---------+ + + | Performing | Address | City/State/Zipcode | Phone Number | | Organization | | | | + +---------+ + + | [facility] | | | | | RADIOLOGY | | | | + +---------+ + + X-RAY ELBOW 2 VIEWS LEFT (11/07/2008 2:58 AM PDT) + + + + + + | Component | Value | Ref Range | Performed | Pathologist | | | | | At | Signature | + + + + + + | ELBOW 2 | STUDY: ELBOW 2 VIEWS | | | | | VIEWS LEFT | LEFT 11/07/08 02:58:00; | | | | | | [place] FOREARM 2 VIEWS | | | | | | LEFT11/07/08 | | | | | | 02:58:00COMPARISON: | | | | | | None.INDICATION: | | | | | | Numbness and weakness | | | | | | status post horse | | | | | | bite.FINDINGS:The elbow | | | | | | and wrist joint spaces | | | | | | are preserved. There | | | | | | is nofracture, focal | | | | | | destructive lesion, | | | | | | malalignment, radiopaque | | | | | | foreignbody or soft | | | | | | tissue | | | | | | abnormality. On the | | | | | | forearm radiographs | | | | | | there isartifact seen | | | | | | adjacent to the medial | | | | | | aspect of the elbow | | | | | | joint andproximal | | | | | | forearm.IMPRESSION:Zandra | | | | | | l left elbow and | | | | | | forearm.I have | | | | | | personally viewed this | | | | | | procedure/exam and | | | | | | reviewed this | | | | | | report.Author: ANALI Bolden | | | | | | Kamryn JANSEN: | | | | | | REA IBARRA, | | | | | | AguilarSTATUS FINAL / | | | | | | REA ROMERO | | | | | | PENDING FINAL APPROVAL / | | | | | | Dr. ANALI Bolden | | | | | | AIDAN PRELIMINARY | | | | | | - UNSIGNED / | | | | | | ANALI JANSEN | | | | + + + + + + + + | Specimen | + + | | + + + +---------+ + + | Performing | Address | City/State/Zipcode | Phone Number | | Organization | | | | + +---------+ + + | [facility] | | | | | RADIOLOGY | | | | + +---------+ + + X-RAY PORTABLE FOREARM 2 VIEWS LEFT (11/07/2008 2:58 AM PDT) + + + + + + | Component | Value | Ref Range | Performed | Pathologist | | | | | At | Signature | + + + + + + | X-RAY | STUDY: ELBOW 2 VIEWS | | | | | PORTABLE | LEFT 11/07/08 02:58:00; | | | | | FOREARM 2 | [place] FOREARM 2 VIEWS | | | | | VIEWS LEFT | LEFT11/07/08 | | | | | | 02:58:00COMPARISON: | | | | | | None.INDICATION: | | | | | | Numbness and weakness | | | | | | status post horse | | | | | | bite.FINDINGS:The elbow | | | | | | and wrist joint spaces | | | | | | are preserved. There | | | | | | is nofracture, focal | | | | | | destructive lesion, | | | | | | malalignment, radiopaque | | | | | | foreignbody or soft | | | | | | tissue | | | | | | abnormality. On the | | | | | | forearm radiographs | | | | | | there isartifact seen | | | | | | adjacent to the medial | | | | | | aspect of the elbow | | | | | | joint andproximal | | | | | | forearm.IMPRESSION:Zandra | | | | | | l left elbow and | | | | | | forearm.I have | | | | | | personally viewed this | | | | | | procedure/exam and | | | | | | reviewed this | | | | | | report.Author: ANALI Bolden | | | | | | Kamryn JANSEN: | | | | | | REA IBARRA, | | | | | | AguilarSTATUS FINAL / | | | | | | REA ROMERO | | | | | | PENDING FINAL APPROVAL / | | | | | | Dr. ANALI Bolden | | | | | | AIDAN PRELIMINARY | | | | | | - UNSIGNED / | | | | | | ANALI JANSEN | | | | + + + + + + + + | Specimen | + + | | + + + +---------+ + + | Performing | Address | City/State/Zipcode | Phone Number | | Organization | | | | + +---------+ + + | [facility] | | | | | RADIOLOGY | | | | + +---------+ + + CONFIRMATORY ABO/RH (11/07/2008 2:50 AM PDT) + + + + + + | Component | Value | Ref Range | Performed | Pathologist | | | | | At | Signature | + + + + + + | ABO GROUP | A | | [facility] | | | | | | DEPARTMENT | | | | | | OF | | | | | | PATHOLOGY | | + + + + + + | RH TYPE | Positive | | [facility] | | | | | | DEPARTMENT | | | | | | OF | | | | | | PATHOLOGY | | + + + + + + + + | Specimen | + + | | + + + + + + + | Performing | Address | City/State/Zipcode | Phone Number | | Organization | | | | + + + + + | [facility] | [address] | [place] [address] | | | PATHOLOGY | [address] | | | + + + + + | [facility] | [facility] [facility] | [place] [address] | | | PATHOLOGY | [address] | | | + + + + + URINE, MICROSCOPIC EXAM (11/07/2008 12:01 AM PDT) + +---------+ + + + | Component | Value | Ref Range | Performed | Pathologist | | | | | At | Signature | + +---------+ + + + | SQUAMOUS | Few (A) | /hpf | [facility] | | | EPITHELIAL | | | DEPARTMENT | | | | | | OF | | | | | | PATHOLOGY | | + +---------+ + + + | NON-SQUAMOU | None | /hpf | [facility] | | | S EPITH | | | DEPARTMENT | | | | | | OF | | | | | | PATHOLOGY | | + +---------+ + + + | RED CELLS | 1-3 | 0 - 3 /hpf | [facility] | | | | | | DEPARTMENT | | | | | | OF | | | | | | PATHOLOGY | | + +---------+ + + + | WHITE CELLS | 30-40 | 0 - 5 /hpf | [facility] | | | | | | DEPARTMENT | | | | | | OF | | | | | | PATHOLOGY | | + +---------+ + + + | BACTERIA | Few (A) | /hpf | [facility] | | | | | | DEPARTMENT | | | | | | OF | | | | | | PATHOLOGY | | + +---------+ + + + | MUCOUS | None | /hpf | [facility] | | | | | | DEPARTMENT | | | | | | OF | | | | | | PATHOLOGY | | + +---------+ + + + | HYALINE | None | 0 - 1 /lpf | [facility] | | | CASTS | | | DEPARTMENT | | | | | | OF | | | | | | PATHOLOGY | | + +---------+ + + + | GRANULAR | None | /lpf | [facility] | | | CASTS | | | DEPARTMENT | | | | | | OF | | | | | | PATHOLOGY | | + +---------+ + + + | CELLULAR | None | /lpf | [facility] | | | CASTS | | | DEPARTMENT | | | | | | OF | | | | | | PATHOLOGY | | + +---------+ + + + | AMORPHOUS | None | /hpf | [facility] | | | CRYSTALS | | | DEPARTMENT | | | | | | OF | | | | | | PATHOLOGY | | + +---------+ + + + | CALCIUM | None | /hpf | [facility] | | | OXALATE | | | DEPARTMENT | | | BERNARDO | | | OF | | | | | | PATHOLOGY | | + +---------+ + + + | URIC ACID | None | /hpf | [facility] | | | CRYSTALS | | | DEPARTMENT | | | | | | OF | | | | | | PATHOLOGY | | + +---------+ + + + | TRIPLE P04 | None | /hpf | [facility] | | | CRYSTALS | | | DEPARTMENT | | | | | | OF | | | | | | PATHOLOGY | | + +---------+ + + + | YEAST (LAB) | None | /hpf | [facility] | | | | | | DEPARTMENT | | | | | | OF | | | | | | PATHOLOGY | | + +---------+ + + + | TRICHOMONAS | None | /hpf | [facility] | | | | | | DEPARTMENT | | | | | | OF | | | | | | PATHOLOGY | | + +---------+ + + + + + | Specimen | + + | Urine - Urine | + + + + + | Narrative | Performed At | + + + | WBC Clumps Present | [facility] | | | DEPARTMENT OF | | | PATHOLOGY | + + + + + + + + | Performing | Address | City/State/Zipcode | Phone Number | | Organization | | | | + + + + + | [facility] | [address] | [place] [address] | | | PATHOLOGY | [address] | | | + + + + + | [facility] | [address] | [place] [address] | | | PATHOLOGY | [address] | | | + + + + + SURGICAL PATHOLOGY (11/07/2008) + + + + + + | Component | Value | Ref Range | Performed | Pathologist | | | | | At | Signature | + + + + + + | SURGICAL | SOURCE OF SPECIMEN:A | | [facility] | | | PATHOLOGY | Thrombus, left | | DEPARTMENT | | | | arm Final | | OF | | | | Pathologic | | PATHOLOGY | | | | Diagnosis:Thrombus, left | | | | | | arm, | | | | | | thrombectomy: - | | | | | | Thrombus (see | | | | | | comment) | | | | | | Comment: Abundant | | | | | | numbers of neutrophils, | | | | | | not usually seen to this | | | | | | degreein thrombi, are | | | | | | also present. Please | | | | | | correlate clinically to | | | | | | addressinfection. | | | | | | Case seen by:Xi | | | | | | Aguilar Alarcon / Surgical | | | | | | Pathology FellowMegan | | | | | | Aguilar Osorio, Ph.D. / | | | | | | PathologistT:11/09/08:la | | | | | | b Clinical | | | | | | History:The patient is a | | | | | | 53-year-old female with | | | | | | a left arm | | | | | | thrombus. Gross | | | | | | Description:Received is | | | | | | one specimen fresh in a | | | | | | container labeled with | | | | | | the patient | | | | | | name(initials WC) and | | | | | | "thrombus." Received | | | | | | is a 1.3 x 1 x 0.5-cm | | | | | | portion ofsoft | | | | | | diffluent, red-purple | | | | | | tissue. The entire | | | | | | specimen is | | | | | | submitted. | | | | | | Cassette Index:A1, | | | | | | wrappedJKK/sg My | | | | | | electronic signature | | | | | | indicates that I have | | | | | | personally reviewed | | | | | | alldiagnostic slides, | | | | | | the gross and/or | | | | | | microscopic portion of | | | | | | thisreport and | | | | | | formulated the final | | | | | | diagnosis. | | | | | | Rendering | | | | | | Diagnostician: Casandra | | | | | | Hui Osorio Ph.D., | | | | | | AguilarPathologistElectroni | | | | | | андрей Signed 11/12/2008 | | | | + + + + + + + + | Specimen | + + | Other | + + + + + + + | Performing | Address | City/State/Zipcode | Phone Number | | Organization | | | | + + + + + | [facility] | [address] | [place] [address] | | | PATHOLOGY | [address] | | | + + + + + | [facility] | [address] | [place] [address] | | | PATHOLOGY | [address] | | | + + + + + X-RAY CHEST 2 VIEW (11/06/2008 10:31 PM PDT) + + + + + + | Component | Value | Ref Range | Performed | Pathologist | | | | | At | Signature | + + + + + + | CHEST, 2 | STUDY: CHEST 2 VIEWS | | | | | VIEWS OR | 11/06/08 | | | | | STEREO | 22:31:00COMPARISON: | | | | | | NONEHISTORY: | | | | | | Preoperative | | | | | | evaluation.FINDINGS:The | | | | | | lungs are clear. The | | | | | | cardiomediastinal | | | | | | silhouette is normal.The | | | | | | osseous structures are | | | | | | unremarkable.IMPRESSION: | | | | | | Clear lungs.I have | | | | | | personally viewed this | | | | | | procedure/exam and | | | | | | reviewed this | | | | | | report.Author: ANALI | | | | | | Kamryn TREVINO: | | | | | | ALINA CURIEL M.D.STATUS | | | | | | FINAL / Dr. FULLER | | | | | | VEENA | | | | + + + + + + + + | Specimen | + + | | + + + +---------+ + + | Performing | Address | City/State/Zipcode | Phone Number | | Organization | | | | + +---------+ + + | [facility] | | | | | RADIOLOGY | | | | + +---------+ + + DIFFERENTIAL (11/06/2008 9:58 PM PDT) + + + + + + | Component | Value | Ref Range | Performed | Pathologist | | | | | At | Signature | + + + + + + | NEUTROPHIL | 88 (H) | 50 - 70 % | [facility] | | | % | | | DEPARTMENT | | | | | | OF | | | | | | PATHOLOGY | | + + + + + + | LYMPHOCYTE | 8 (L) | 18 - 42 % | [facility] | | | % | | | DEPARTMENT | | | | | | OF | | | | | | PATHOLOGY | | + + + + + + | MONOCYTE % | 4 | 2 - 8 % | [facility] | | | | | | DEPARTMENT | | | | | | OF | | | | | | PATHOLOGY | | + + + + + + | EOS % | 0 (L) | 1 - 3 % | [facility] | | | | | | DEPARTMENT | | | | | | OF | | | | | | PATHOLOGY | | + + + + + + | BASO % | 0 | <3 % | [facility] | | | | | | DEPARTMENT | | | | | | OF | | | | | | PATHOLOGY | | + + + + + + | NEUTROPHIL | 20.3 (H) | 1.8 - 7.7 K/cu | [facility] | | | # | | mm | DEPARTMENT | | | | | | OF | | | | | | PATHOLOGY | | + + + + + + | LYMPHOCYTE | 1.9 | 1.0 - 4.8 K/cu | [facility] | | | # | | mm | DEPARTMENT | | | | | | OF | | | | | | PATHOLOGY | | + + + + + + | MONOCYTE # | 0.9 (H) | <0.9 K/cu mm | [facility] | | | | | | DEPARTMENT | | | | | | OF | | | | | | PATHOLOGY | | + + + + + + | EOS # | 0.0 | <0.6 K/cu mm | [facility] | | | | | | DEPARTMENT | | | | | | OF | | | | | | PATHOLOGY | | + + + + + + | BASO # | 0.0 | <0.3 | [facility] | | | | | | DEPARTMENT | | | | | | OF | | | | | | PATHOLOGY | | + + + + + + + + | Specimen | + + | | + + + + + | Narrative | Performed At | + + + | * Corrected 11/06/08 23:59: HUI COMMENTS, prev report: Slide | [facility] | | review pending. | DEPARTMENT OF | | | PATHOLOGY | + + + + + + + + | Performing | Address | City/State/Zipcode | Phone Number | | Organization | | | | + + + + + | [facility] | [address] | [place] [address] | | | PATHOLOGY | [address] | | | + + + + + | [facility] | [address] | [place] [address] | | | PATHOLOGY | [address] | | | + + + + + HEMOGLOBIN A1C, BLOOD (11/06/2008 9:58 PM PDT) + + + + + + | Component | Value | Ref Range | Performed | Pathologist | | | | | At | Signature | + + + + + + | HEMOGLOBIN | 14.0 (H) | <5.8 % | | | | A1C | | | | | + + + + + + + + | Specimen | + + | Blood - Blood | + + + + + | Narrative | Performed At | + + + | | [facility] | | Non-Diabetic: | DEPARTMENT OF | | 4.0 - 5.7% Risk | PATHOLOGY | | For Chronic Complications In Adults: | | | | | | Low <7.0% | | | | | | Medium 7.0-7.9% | | | | | | High >7.9% [facility] (Airport | | | Way Lab) [facility] [address] | | | [place] [address] | | + + + + + + + + | Performing | Address | City/State/Zipcode | Phone Number | | Organization | | | | + + + + + | [facility] | [address] | [place] [address] | | | PATHOLOGY | [address] | | | + + + + + | [facility] | [address] | [place] [address] | | | PATHOLOGY | [address] | | | + + + + + COMPLETE METABOLIC SET (NA,K,CL,CO2,BUN,CREAT,GLUC,CA,AST,ALT,BILI TOTAL,ALK PHOS,ALB,PROT TOTAL) (11/06/2008 9:58 PM PDT) + +---------+ + + + | Component | Value | Ref Range | Performed | Pathologist | | | | | At | Signature | + +---------+ + + + | GLUCOSE, | 352 (H) | 60 - 99 mg/dL | [facility] | | | PLASMA | | | DEPARTMENT | | | (LAB) | | | OF | | | | | | PATHOLOGY | | + +---------+ + + + | BUN, PLASMA | 17 | 6 - 20 mg/dL | [facility] | | | (LAB) | | | DEPARTMENT | | | | | | OF | | | | | | PATHOLOGY | | + +---------+ + + + | CREATININE | 0.85 | 0.60 - 1.10 | [facility] | | | PLASMA | | mg/dL | DEPARTMENT | | | (LAB) | | | OF | | | | | | PATHOLOGY | | + +---------+ + + + | TOTAL | 7.5 | 6.1 - 7.9 g/dL | [facility] | | | PROTEIN, | | | DEPARTMENT | | | PLASMA | | | OF | | | (LAB) | | | PATHOLOGY | | + +---------+ + + + | ALBUMIN, | 2.9 (L) | 3.5 - 4.7 g/dL | [facility] | | | PLASMA | | | DEPARTMENT | | | (LAB) | | | OF | | | | | | PATHOLOGY | | + +---------+ + + + | CALCIUM, | 8.9 | 8.6 - 10.2 | [facility] | | | PLASMA | | mg/dL | DEPARTMENT | | | (LAB) | | | OF | | | | | | PATHOLOGY | | + +---------+ + + + | BILIRUBIN | 1.0 | 0.3 - 1.2 mg/dL | [facility] | | | TOTAL | | | DEPARTMENT | | | | | | OF | | | | | | PATHOLOGY | | + +---------+ + + + | ALK PHOS | 103 (H) | 42 - 98 U/L | [facility] | | | | | | DEPARTMENT | | | | | | OF | | | | | | PATHOLOGY | | + +---------+ + + + | AST(SGOT) | 14 (L) | 15 - 41 U/L | [facility] | | | | | | DEPARTMENT | | | | | | OF | | | | | | PATHOLOGY | | + +---------+ + + + | SODIUM, | 135 | 134 - 143 | [facility] | | | PLASMA | | mmol/L | DEPARTMENT | | | (LAB) | | | OF | | | | | | PATHOLOGY | | + +---------+ + + + | POTASSIUM, | 4.1 | 3.4 - 5.0 | [facility] | | | PLASMA | | mmol/L | DEPARTMENT | | | (LAB) | | | OF | | | | | | PATHOLOGY | | + +---------+ + + + | CHLORIDE, | 103 | 97 - 108 mmol/L | [facility] | | | PLASMA | | | DEPARTMENT | | | (LAB) | | | OF | | | | | | PATHOLOGY | | + +---------+ + + + | TOTAL CO2, | 18 (L) | 23 - 31 mmol/L | [facility] | | | PLASMA | | | DEPARTMENT | | | (LAB) | | | OF | | | | | | PATHOLOGY | | + +---------+ + + + | ALT (SGPT) | 18 | 13 - 48 U/L | [facility] | | | | | | DEPARTMENT | | | | | | OF | | | | | | PATHOLOGY | | + +---------+ + + + + + | Specimen | + + | Blood - Blood | + + + + + + + | Performing | Address | City/State/Zipcode | Phone Number | | Organization | | | | + + + + + | [facility] | [address] | [place] [address] | | | PATHOLOGY | [address] | | | + + + + + | [facility] | [address] | [place] [address] | | | PATHOLOGY | [address] | | | + + + + + APTT (ACT. PART. THROMBO TIME) (11/06/2008 9:58 PM PDT) + + + + + + | Component | Value | Ref Range | Performed | Pathologist | | | | | At | Signature | + + + + + + | APTT | 32.1Comment: | 26.0 - 36.0 | [facility] | | | | APTT | seconds | DEPARTMENT | | | | Therapeutic | | OF | | | | Range | | PATHOLOGY | | | | | | | | | | (75-120) | | | | | | sec | | | | | | Heparin levels of | | | | | | 0.35-0.7 U/mL | | | | + + + + + + + + | Specimen | + + | Blood - Blood | + + + + + + + | Performing | Address | City/State/Zipcode | Phone Number | | Organization | | | | + + + + + | [facility] | [address] | [place] [address] | | | PATHOLOGY | [address] | | | + + + + + | [facility] | [address] | [place] [address] | | | PATHOLOGY | [address] | | | + + + + + INR (11/06/2008 9:58 PM PDT) + + + + + + | Component | Value | Ref Range | Performed | Pathologist | | | | | At | Signature | + + + + + + | INR | 1.09Comment: | 0.90 - 1.20 INR | [facility] | | | | INR | | DEPARTMENT | | | | Therapeutic ranges for | | OF | | | | full | | PATHOLOGY | | | | anticoagulation: | | | | | | INR for Venous | | | | | | Thromboembolism | | | | | | | | | | | | (2.0-3.0) | | | | | | INR INR for | | | | | | most patients with mech. | | | | | | | | | | | | valves (2.5-3.5) | | | | | | INR | | | | + + + + + + + + | Specimen | + + | Blood - Blood | + + + + + + + | Performing | Address | City/State/Zipcode | Phone Number | | Organization | | | | + + + + + | [facility] | [address] | [place] [address] | | | PATHOLOGY | [address] | | | + + + + + | [facility] | [address] | [place] [address] | | | PATHOLOGY | [address] | | | + + + + + CBC, WITH DIFFERENTIAL (11/06/2008 9:58 PM PDT) + + + + + + | Component | Value | Ref Range | Performed | Pathologist | | | | | At | Signature | + + + + + + | RED CELL | 3.59 (L) | 4.00 - 5.20 | [facility] | | | COUNT | | M/cu mm | DEPARTMENT | | | | | | OF | | | | | | PATHOLOGY | | + + + + + + | HEMOGLOBIN | 8.3 (L) | 12.0 - 16.0 | [facility] | | | | | g/dL | DEPARTMENT | | | | | | OF | | | | | | PATHOLOGY | | + + + + + + | HEMATOCRIT | 25.6 (L) | 36.0 - 46.0 % | [facility] | | | | | | DEPARTMENT | | | | | | OF | | | | | | PATHOLOGY | | + + + + + + | MCV | 71.3 (L) | 80.0 - 96.0 fL | [facility] | | | | | | DEPARTMENT | | | | | | OF | | | | | | PATHOLOGY | | + + + + + + | MCHC | 32.4 (L) | 33.4 - 35.5 | [facility] | | | | | g/dL | DEPARTMENT | | | | | | OF | | | | | | PATHOLOGY | | + + + + + + | RDW | 15.0 | 11.5 - 15.0 % | [facility] | | | | | | DEPARTMENT | | | | | | OF | | | | | | PATHOLOGY | | + + + + + + | PLATELET | 603 (H) | 150 - 400 K/cu | [facility] | | | COUNT | | mm | DEPARTMENT | | | | | | OF | | | | | | PATHOLOGY | | + + + + + + | CBC | Final automated | | [facility] | | | COMMENTS | differential | | DEPARTMENT | | | | report. Smear | | OF | | | | reviewed.Final WBC | | PATHOLOGY | | | | Report. | | | | + + + + + + | WHITE CELL | 23.1 (H) | 4.4 - 11.0 K/cu | [facility] | | | COUNT | | mm | DEPARTMENT | | | | | | OF | | | | | | PATHOLOGY | | + + + + + + | RBC | Hypochromasia | | [facility] | | | MORPHOLOGY | + | | DEPARTMENT | | | | | | OF | | | | | | PATHOLOGY | | | | | | | | | | | | | | | | | | | | | | | | | | | | | | | | | | | | | | | | | | | | | | | | | | | | | | | | | | Microcytosis | | | | | | ++ | | | | + + + + + + + + | Specimen | + + | Blood - Blood | + + + + + | Narrative | Performed At | + + + | * Corrected 11/06/08 23:59: HUI COMMENTS, prev report: Slide | [facility] | | review pending. | DEPARTMENT OF | | | PATHOLOGY | + + + + + + + + | Performing | Address | City/State/Zipcode | Phone Number | | Organization | | | | + + + + + | [facility] | [address] [place] [address] | [place] [address] | | | PATHOLOGY | [address] | | | + + + + + | [facility] | [facility] [address] [facility] | [place] [address] | | | PATHOLOGY | [address] | | | + + + + + BASIC METABOLIC SET (NA, K, CL, TCO2, BUN, CR, GLU, CA) (11/06/2008 9:58 PM PDT) + +---------+ + + + | Component | Value | Ref Range | Performed | Pathologist | | | | | At | Signature | + +---------+ + + + | GLUCOSE, | 352 (H) | 60 - 99 mg/dL | [facility] | | | PLASMA | | | DEPARTMENT | | | (LAB) | | | OF | | | | | | PATHOLOGY | | + +---------+ + + + | BUN, PLASMA | 17 | 6 - 20 mg/dL | [facility] | | | (LAB) | | | DEPARTMENT | | | | | | OF | | | | | | PATHOLOGY | | + +---------+ + + + | CREATININE | 0.85 | 0.60 - 1.10 | [facility] | | | PLASMA | | mg/dL | DEPARTMENT | | | (LAB) | | | OF | | | | | | PATHOLOGY | | + +---------+ + + + | SODIUM, | 135 | 134 - 143 | [facility] | | | PLASMA | | mmol/L | DEPARTMENT | | | (LAB) | | | OF | | | | | | PATHOLOGY | | + +---------+ + + + | POTASSIUM, | 4.1 | 3.4 - 5.0 | [facility] | | | PLASMA | | mmol/L | DEPARTMENT | | | (LAB) | | | OF | | | | | | PATHOLOGY | | + +---------+ + + + | CHLORIDE, | 103 | 97 - 108 mmol/L | [facility] | | | PLASMA | | | DEPARTMENT | | | (LAB) | | | OF | | | | | | PATHOLOGY | | + +---------+ + + + | CALCIUM, | 8.9 | 8.6 - 10.2 | [facility] | | | PLASMA | | mg/dL | DEPARTMENT | | | (LAB) | | | OF | | | | | | PATHOLOGY | | + +---------+ + + + | TOTAL CO2, | 18 (L) | 23 - 31 mmol/L | [facility] | | | PLASMA | | | DEPARTMENT | | | (LAB) | | | OF | | | | | | PATHOLOGY | | + +---------+ + + + + + | Specimen | + + | Blood - Blood | + + + + + + + | Performing | Address | City/State/Zipcode | Phone Number | | Organization | | | | + + + + + | [facility] | [address] | [place] [address] | | | PATHOLOGY | [address] | | | + + + + + | [facility] | [address] | [place], [place] [address] | | | PATHOLOGY | [address] | | | + + + + + PRODUCT- RED CELLS LEUKOREDUCED (11/06/2008 9:15 PM PDT) + + + + + + | Component | Value | Ref Range | Performed | Pathologist | | | | | At | Signature | + + + + + + | PRODUCT | -1 RED BLOOD | | [facility] | | | DESCRIPTION | CELLS,ADENINE-SALINE | | DEPARTMENT | | | | ADDED,LEUKOCYTES REDUCED | | OF | | | | | | PATHOLOGY | | + + + + + + | PRODUCT | [id number] | | [facility] | | | UNIT # | | | DEPARTMENT | | | | | | OF | | | | | | PATHOLOGY | | + + + + + + | UNIT ABO | A | | [facility] | | | | | | DEPARTMENT | | | | | | OF | | | | | | PATHOLOGY | | + + + + + + | UNIT RH | POS | | [facility] | | | | | | DEPARTMENT | | | | | | OF | | | | | | PATHOLOGY | | + + + + + + | STATUS OF | Presumed Transfused | | [facility] | | | UNIT | | | DEPARTMENT | | | | | | OF | | | | | | PATHOLOGY | | + + + + + + + + | Specimen | + + | | + + + + + + + | Performing | Address | City/State/Zipcode | Phone Number | | Organization | | | | + + + + + | [facility] | [address] | [place] [address] | | | PATHOLOGY | [address] | | | + + + + + | [facility] | [address] [place] [address] [address] | [place] [address] | | | PATHOLOGY | [address] | | | + + + + + PRODUCT- RED CELLS LEUKOREDUCED (11/06/2008 9:15 PM PDT) + + + + + + | Component | Value | Ref Range | Performed | Pathologist | | | | | At | Signature | + + + + + + | PRODUCT | -1 RED BLOOD | | [facility] | | | DESCRIPTION | CELLS,ADENINE-SALINE | | DEPARTMENT | | | | ADDED,LEUKOCYTES REDUCED | | OF | | | | | | PATHOLOGY | | + + + + + + | PRODUCT | [id number] | | [facility] | | | UNIT # | | | DEPARTMENT | | | | | | OF | | | | | | PATHOLOGY | | + + + + + + | UNIT ABO | A | | [facility] | | | | | | DEPARTMENT | | | | | | OF | | | | | | PATHOLOGY | | + + + + + + | UNIT RH | POS | | [facility] | | | | | | DEPARTMENT | | | | | | OF | | | | | | PATHOLOGY | | + + + + + + | STATUS OF | Presumed Transfused | | [facility] | | | UNIT | | | DEPARTMENT | | | | | | OF | | | | | | PATHOLOGY | | + + + + + + + + | Specimen | + + | | + + + + + + + | Performing | Address | City/State/Zipcode | Phone Number | | Organization | | | | + + + + + | [facility] | [address] | [place] [address] | | | PATHOLOGY | [address] | | | + + + + + | [facility] | [address] | [place] [address] | | | PATHOLOGY | [address] | | | + + + + + TYPE AND SCREEN (11/06/2008 8:22 PM PDT) + + + + + + | Component | Value | Ref Range | Performed | Pathologist | | | | | At | Signature | + + + + + + | ABO GROUP | A | | [facility] | | | | | | DEPARTMENT | | | | | | OF | | | | | | PATHOLOGY | | + + + + + + | RH TYPE | Positive | | [facility] | | | | | | DEPARTMENT | | | | | | OF | | | | | | PATHOLOGY | | + + + + + + | Antibody | Negative | | [facility] | | | Screen | | | DEPARTMENT | | | | | | OF | | | | | | PATHOLOGY | | + + + + + + + + | Specimen | + + | Blood - Blood | + + + + + + + | Performing | Address | City/State/Zipcode | Phone Number | | Organization | | | | + + + + + | [facility] | [address] | [place] [address] | | | PATHOLOGY | [address] | | | + + + + + | [facility] | [address] | [place] [address] | | | PATHOLOGY | [address] | | | + + + + + OPERATION RECORD (11/06/2008 12:00 AM PDT) + + + | Narrative | Performed At | + + + | [id number] | | | [id number] | | | [id number] [address] | | | [place] [id number] | | | Date: 11/07/2008 Attending | | | Surgeon: Misbah Quijano M.D. | | | Governor Assembler(s): Sam Niño | | | Aguilar Preoperative Diagnosis(es): Severely ischemic left hand. | | | Postoperative Diagnosis(es): Severely ischemic left hand. | | | Procedures Performed: Embolectomy of left brachial, radial, and | | | ulnar arteries via an arm incision. Anesthesia: General | | | endotracheal. Estimated Blood Loss: Approximately 50 cc from | | | the embolectomy portion of the procedure. There was ongoing | | | significant vaginal bleeding. Specimens: Tissue to | | | Pathology: Clot from the brachial, radial, and ulnar arteries. | | | Indications: Ms. Mcclellan was transferred here from a referring | | | hospital with significant left upper extremity ischemia. She had | | | been having symptoms for several days and had worsening of her | | | hand ischemia. She underwent angiography on the morning of this | | | operation which revealed clots present in the radial and ulnar | | | arteries of the left upper extremity. There were no images | | | obtained proximally. She underwent treatment with brachytherapy | | | but worsened during the course of the day and was taken emergently to | | | the operating room at this time for emergency attempt at | | | revascularization. Findings At The Time Of Operation: The | | | brachial artery at the level of the antecubital fossa was completely | | | pulseless at initial exposure. It was a normal vessel without | | | any evidence of atherosclerosis. There was no backbleeding from | | | the radial or ulnar arteries initially. Clot was able to be | | | extracted from the brachial, radial, and ulnar arteries through a | | | brachial artery incision. There was establishment of very good | | | inflow with the brachial artery embolectomy. There was | | | establishment of good backbleeding from the radial and ulnar | | | arteries after embolectomy of these vessels. There was a Doppler | | | signal over the ulnar artery proximally at the end of theprocedure | | | but not at the wrist. There was a Doppler signal over the radial | | | artery just proxima lto the wrist at the end of the procedure. | | | There was very reasonable capillary refill of the thenar and | | | hypothenar areas at the end of the procedure. She was also | | | having vigorous vaginal bleeding of unknown source throughout the | | | procedure and at the end of the procedure. Procedure: | | | Eleuterio was brought to the operating room. She was placed on the | | | operating table supine. Both lower extremities and the left | | | upper extremity were prepped with ChloraPrep and draped as a sterile | | | field. An incision was made in the antecubital fossa of the left | | | upper extremity after a surgical pause. Dissection was carried | | | down to the brachial artery, and it was found to be without | | | pulse. The radial artery also was without pulse as was the ulnar | | | artery. There were soft vessels without any evidence of | | | atherosclerosis. They were each encircled with a vessel loop. | | | She had an angiographic catheter placed in the brachial artery, and | | | this was withdrawn approximately 10 to 12 cm. There was still no | | | brachial pulse; therefore, she was given 5000 units of intravenous | | | heparin, and it was allowed to circulate for 3 minutes. A | | | transverse arteriotomy was made in the brachial artery, and a #3 | | | Tyson catheter was passed proximally with return of very | | | old-appearing thrombus and re-establishment of very good | | | inflow. A clamp was placed on this artery. Next, a Tyson | | | catheter was passed down the radial artery and ulnar | | | artery. Catheter was able to be passed to the level of the wrist | | | and probably beyond in the radial artery and approximately | | | two-thirds of the way down the forearm in the ulnar artery but | | | would not pass to the level of the wrist. Clot was extracted | | | from each of these vessels with establishment of good backbleeding | | | from each vessels. Once this was done, the embolectomy incision | | | in the brachial artery was closed with interrupted 7-0 Prolene | | | sutures, and flow re-established. 30 mg of papaverine was also | | | injected into the brachial artery. After waiting several minutes, | | | there was re-establishment of a reasonable Doppler signal over the | | | radial artery just above the level of the wrist. There was no | | | audible Doppler signal in the ulnar artery ar the wrist | | | crease. There was good vascularity of the thenar and hypothenar | | | eminences of the hand. It was decided at this point to not pursue | | | anything further at this time given the vigorous vaginal bleeding | | | that was ongoing through case and of unknown source. We will | | | give 400 units an hour of intravenous heparin through the catheter | | | in the left upper extremity, and we will obtain a repeat angiogram | | | in a few hours in the morning to more fully assess the proximal | | | arteries and the distal arteries of the extremity. She will also | | | have an emergency USABILITY ARCHITECT consult for the ongoing significant vaginal | | | bleeding. The antecubital wound was then closed with interrupted | | | 3-0 Vicryl sutures and the skin closed with interrupted nylons. | | | Sterile dressing was applied, and she was transferred to the | | | recovery area in stable condition. She seemed to have tolerated | | | this procedure well. MISBAH QUIJANO MD Professor of | | | Surgery [facility] / [id number] / [id number] / [id number] / T: | | | 11/08/2008 | | + + + + + | Procedure Note | + + | Misbah Quijano MD - 11/07/2008 12:00 AM PDT [id number] | | [id number] [address] | | [id number] Date: 11/07/2008 Attending Surgeon: Misbah | | Renu Quijano M.D. Governor Assembler(s): Sam Niño M.D. Preoperative | | Diagnosis(es):Severely ischemic left hand. Postoperative Diagnosis(es):Severely | | ischemic left hand. Procedures Performed:Embolectomy of left brachial, radial, and | | ulnar arteries via an armincision. Anesthesia:General endotracheal. Estimated Blood | | Loss:Approximately 50 cc from the embolectomy portion of the procedure. Therewas | | ongoing significant vaginal bleeding. Specimens:Tissue to Pathology: Clot from the | | brachial, radial, and ulnar arteries. Indications:Ms. Mcclellan was transferred here from | | a referring hospital with significantleft upper extremity ischemia. She had been | | having symptoms for severaldays and had worsening of her hand ischemia. She underwent | | angiography onthe morning of this operation which revealed clots present in the | | radialand ulnar arteries of the left upper extremity. There were no imagesobtained | | proximally. She underwent treatment with brachytherapy butworsened during the course of | | the day and was taken emergently to theoperating room at this time for emergency | | attempt at revascularization. Findings At The Time Of Operation:The brachial artery at | | the level of the antecubital fossa was completelypulseless at initial exposure. It was | | a normal vessel without any evidenceof atherosclerosis. There was no backbleeding from | | the radialor ulnar arteries initially. Clot was able to be extracted from thebrachial, | | radial, and ulnar arteries through a brachial artery incision.There was establishment of | | very good inflow with the brachial arteryembolectomy. There was establishment of good | | backbleeding from the radialand ulnar arteries after embolectomy of these vessels. | | There was a Dopplersignal over the ulnar artery proximally at the end of theprocedure | | but not at the wrist.There was a Doppler signal over the radial artery just proxima lto | | the wrist at theend of the procedure. There was very reasonable capillary refillof the | | thenar and hypothenar areas at the end of the procedure. She wasalso having vigorous | | vaginal bleeding of unknown source throughout theprocedure and at the end of the | | procedure. Procedure:Ms. Mcclellan was brought to the operating room. She was placed on | | theoperating table supine. Both lower extremities and the left upperextremity were | | prepped with ChloraPrep and draped as a sterile field. Anincision was made in the | | antecubital fossa of the left upper extremityafter a surgical pause. Dissection was | | carried down to the brachialartery, and it was found to be without pulse. The radial | | artery also waswithout pulse as was the ulnar artery. There were soft vessels without | | anyevidence of atherosclerosis. They were each encircled with a vessel loop.She had an | | angiographic catheter placed in the brachial artery, and thiswas withdrawn approximately | | 10 to 12 cm. There was still no brachialpulse; therefore, she was given 5000 units of | | intravenous heparin, and itwas allowed to circulate for 3 minutes. A transverse | | arteriotomy was madein the brachial artery, and a #3 Tyson catheter was passed | | proximallywith return of very old-appearing thrombus and re-establishment of verygood | | inflow. A clamp was placed on this artery. Next, a Tyson catheterwas passed down the | | radial artery and ulnar artery. Catheter was able dakota passed to the level of the | | wrist and probably beyond in the radialartery and approximately two-thirds of the way | | down the forearm in theulnar artery but would not pass to the level of the wrist. Clot | | wasextracted from each of these vessels with establishment of goodbackbleeding from each | | vessels. Once this was done, the embolectomyincision in the brachial artery was closed | | with interrupted 7-0 Prolenesutures, and flow re-established. 30 mg of papaverine was | | also injectedinto the brachial artery. After waiting several minutes, there | | wasre-establishment of a reasonable Doppler signal over the radial artery justabove the | | level of the wrist. There was no audible Doppler signal in theulnar artery ar the wrist | | crease. There was good vascularity of the thenar and hypothenareminences of the hand. | | It was decided at this point to not pursue anythingfurther at this time given the | | vigorous vaginal bleeding that was ongoingthrough case and of unknown source. We will | | give 400 units an hour ofintravenous heparin through the catheter in the left upper | | extremity, andwe will obtain a repeat angiogram in a few hours in the morning to | | morefully assess the proximal arteries and the distal arteries of theextremity. She | | will also have an emergency USABILITY ARCHITECT consult for the ongoingsignificant vaginal bleeding. | | The antecubital wound was then closed withinterrupted 3-0 Vicryl sutures and the skin | | closed with interrupted nylons.Sterile dressing was applied, and she was transferred to | | the recovery areain stable condition. She seemed to have tolerated this procedure well. | | MISBAH QUIJANO, [facility] / [id number] / [id number] / [id number] /D: | | 11/08/2008T: 11/08/2008 | |of the thenar and hypothenar areas at the end of the procedure. She was | |also having vigorous vaginal bleeding of unknown source throughout the | |procedure and at the end of the procedure. | | | | | |Procedure: | |Ms. Mcclellan was brought to the operating room. She was placed on the | |operating table supine. Both lower extremities and the left upper | |extremity were prepped with ChloraPrep and draped as a sterile field. An | |incision was made in the antecubital fossa of the left upper extremity | |after a surgical pause. Dissection was carried down to the brachial | |artery, and it was found to be without pulse. The radial artery also was | |without pulse as was the ulnar artery. There were soft vessels without any | |evidence of atherosclerosis. They were each encircled with a vessel loop. | |She had an angiographic catheter placed in the brachial artery, and this | |was withdrawn approximately 10 to 12 cm. There was still no brachial | |pulse; therefore, she was given 5000 units of intravenous heparin, and it | |was allowed to circulate for 3 minutes. A transverse arteriotomy was made | |in the brachial artery, and a #3 Tyson catheter was passed proximally | |with return of very old-appearing thrombus and re-establishment of very | |good inflow. A clamp was placed on this artery. Next, a Tyson catheter | |was passed down the radial artery and ulnar artery. Catheter was able to | |be passed to the level of the wrist and probably beyond in the radial | |artery and approximately two-thirds of the way down the forearm in the | |ulnar artery but would not pass to the level of the wrist. Clot was | |extracted from each of these vessels with establishment of good | |backbleeding from each vessels. Once this was done, the embolectomy | |incision in the brachial artery was closed with interrupted 7-0 Prolene | |sutures, and flow re-established. 30 mg of papaverine was also injected | |into the brachial artery. After waiting several minutes, there was | |re-establishment of a reasonable Doppler signal over the radial artery just | |above the level of the wrist. There was no audible Doppler signal in the | |ulnar artery ar the wrist crease. There was good vascularity of the thenar and hypothenar | |eminences of the hand. It was decided at this point to not pursue anything | |further at this time given the vigorous vaginal bleeding that was ongoing | |through case and of unknown source. We will give 400 units an hour of | |intravenous heparin through the catheter in the left upper extremity, and | |we will obtain a repeat angiogram in a few hours in the morning to more | |fully assess the proximal arteries and the distal arteries of the | |extremity. She will also have an emergency USABILITY ARCHITECT consult for the ongoing | |significant vaginal bleeding. The antecubital wound was then closed with | |interrupted 3-0 Vicryl sutures and the skin closed with interrupted nylons. | |Sterile dressing was applied, and she was transferred to the recovery area | |in stable condition. She seemed to have tolerated this procedure well. 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 | | | | | | Immunohistochemical | | | | | | stains for p53 and p16 | | | | | | are negative. Althoughwe | | | | | | do not favor a | | | | | | diagnosis of | | | | | | leiomyosarcoma, the | | | | | | malignant potential | | | | | | ofthis tumor is | | | | | | uncertain and clinical | | | | | | correlation and followup | | | | | | arerequested. | | | | | | This case is also seen | | | | | | by Justin Grijalva and | | | | | | Garret who | | | | | | concur. (Analyte | | | | | | specific reagents are | | | | | | used in many laboratory | | | | | | tests necessary | | | | | | [facility] | | | | | | and generally do not | | | | | | require FDA approval. | | | | | | This testwas developed | | | | | | and its performance | | | | | | characteristics | | | | | | determined by | | | | | | [facility]. It | | | | | | has not been cleared or | | | | | | approved by the U.[place]. | | | | | | Food andDrug | | | | | | Administration.) | | | | | | Case seen | | | | | | by:Madhav Sears | | | | | | Scarlet, | | | | | | M.DVeronica/Ayla Zelaya | | | | | | | | | | | | MD/PathologistT:11/26/08 | | | | | | /sg Pathology | | | | | | Staging Summary | | | | | | CaseWorksheet | | | | | | Clinical History:The | | | | | | patient is a 53-year-old | | | | | | female with fibroid | | | | | | uterus. 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 | | | | | | Gross | | | | | | Description:Received is | | | | | | one specimen fresh in a | | | | | | container labeled with | | | | | | the patient | | | | | | name(initials WC) and | | | | | | "myoma." Received is | | | | | | a 217-gram, 9.5 x 6.4 x | | | | | | 5.8-cm,well-circumscribe | | | | | | d, rubbery, mottled | | | | | | wif-qpwo-pa-hemorrhagic | | | | | | red mass withfocal | | | | | | cautery and possible | | | | | | overlying remnants of | | | | | | endometrium. Alsorece | | | | | | ived is a cauterized, | | | | | | rubbery, young-red, 3.7 x | | | | | | 2.5 x 0.8-cm tissue | | | | | | withpossible serosa and | | | | | | endometrium | | | | | | attached. Sectioning | | | | | | of the smaller | | | | | | tissuereveals a dense, | | | | | | giordano-white cut | | | | | | surface. Sectioning | | | | | | of the main | | | | | | tissuereveals a whorled, | | | | | | giordano-white cut surface | | | | | | with moderate dark | | | | | | purplehemorrhage and | | | | | | dusky iyhnti-zp-pcn | | | | | | discoloration and | | | | | | softening consistentwith | | | | | | necrosis. The | | | | | | remaining is rubbery | | | | | | giordano-white. Represent | | | | | | ativesections are | | | | | | submitted. | | | | | | Cassette Index:A1, | | | | | | smaller tissueA2-4, | | | | | | larger | | | | | | tissueJKK/CLR/sg | | | | | | IHC | | | | | | Results:IHCResults | | | | | | My electronic | | | | | | signature indicates that | | | | | | I have personally | | | | | | reviewed alldiagnostic | | | | | | slides, the gross and/or | | | | | | microscopic portion of | | | | | | thisreport and | | | | | | formulated the final | | | | | | diagnosis. | | | | | | Rendering | | | | | | Diagnostician: Sid | | | | | | Nathalie | | | | | | M.ShimaPathologistElectroni | | | | | | андрей Signed 12/03/2008 | | | | + + + + + + + + | Specimen | + + | Other | + + + + + + + | Performing | Address | City/State/Zipcode | Phone Number | | Organization | | | | + + + + + | [facility] | [facility] | [place] [address] | | | PATHOLOGY | [address] | | | + + + + + | [place] [facility] | [facility] | [place] [address] | | | PATHOLOGY | [address] | | | + + + + + documented in this encounter Visit Diagnoses + + | Diagnosis | + + | 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 | + + documented in this encounter Administered Medications + +--------+ +--------+------+------+ | Medication Order | MAR | Action | Dose | Rate | Site | | | Action | Date | | | | + +--------+ +--------+------+------+ | acetaminophen (aka TYLENOL) | Given | 12/04/19 | 650 mg | | | | tablet 650 mg 650 mg, oral, | | 09 6:11 | | | | | EVERY 4 HOURS NEEDED, Starting | | PM PDT | | | | | 11/06/08 at 2125, Until Tue | | | | | | | 12/04/08 at 2045, mild pain, | | | | | | | headache, fever | | | | | | + +--------+ +--------+------+------+ +-------+ +--------+---+---+ | Given | 12/03/19 | 650 mg | | | | | 09 12:57 | | | | | | PM PDT | | | | +-------+ +--------+---+---+ | Given | 12/03/19 | 650 mg | | | | | 09 7:49 | | | | | | AM PDT | | | | +-------+ +--------+---+---+ +---+---+ | | | +---+---+ + +-------+ +--------+---+---+ | acetaminophen (aka TYLENOL) | Given | 11/13/19 | 650 mg | | | | tablet 650 mg 650 mg, oral, | | 09 8:39 | | | | | NEEDED, 1 dose, Starting Wed | | AM PDT | | | | | 11/07/08 at 1218, Until 11/12/08 | | | | | | | at 0839, premedication for blood | | | | | | | transfusion | | | | | | + +-------+ +--------+---+---+ +---+---+ | | | +---+---+ + +-------+ +--------+---+---+ | aspirin EC tablet 325 mg 325 | Given | 11/26/19 | 325 mg | | | | mg, oral, DAILY, First dose on | | 09 9:00 | | | | | 11/07/08 at 0900, Until | | AM PDT | | | | | Discontinued | | | | | | + +-------+ +--------+---+---+ +-------+ +--------+---+---+ | Given | 11/25/19 | 325 mg | | | | | 09 10:00 | | | | | | PM PDT | | | | +-------+ +--------+---+---+ | Given | 11/24/19 | 325 mg | | | | | 09 10:00 | | | | | | PM PDT | | | | +-------+ +--------+---+---+ +---+---+ | | | +---+---+ + +-------+ +------+---+---+ | bisacodyl EC (aka DULCOLAX) | Given | 11/12/19 | 5 mg | | | | tablet 5 mg 5 mg, oral, DAILY | | 09 9:30 | | | | | NEEDED, Starting 11/11/08 at | | PM PDT | | | | | 0823, Until 12/04/08 at 2045, | | | | | | | constipation | | | | | | + +-------+ +------+---+---+ +---+---+ | | | +---+---+ + +-------+ +-----+---+---+ | calcium chloride IV 2 g 2 g, | Given | 11/10/19 | 2 g | | | | intravenous, ONCE, 1 dose, Fri | | 09 5:30 | | | | | 11/09/08 at 0400 | | AM PDT | | | | + +-------+ +-----+---+---+ +---+---+ | | | +---+---+ + +-------+ +-----+---+---+ | calcium chloride IV 2 g 2 g, | Given | 11/11/19 | 2 g | | | | intravenous, ONCE, 1 dose, Sat | | 09 1:15 | | | | | 11/10/08 at 1315 | | PM PDT | | | | + +-------+ +-----+---+---+ +---+---+ | | | +---+---+ + +-------+ +-----+---+---+ | ceFAZolin (aka ANCEF) injection | Given | 12/05/19 | 1 g | | | | 1 g 1 g, intravenous, EVERY 8 | | 09 8:28 | | | | | HOURS, First dose on Wed11/21/08 | | AM PDT | | | | | at 0700, Until Discontinued | | | | | | + +-------+ +-----+---+---+ +-------+ +-----+---+---+ | Given | 12/04/19 | 1 g | | | | | 09 11:00 | | | | | | PM PDT | | | | +-------+ +-----+---+---+ | Given | 12/04/19 | 1 g | | | | | 09 3:00 | | | | | | PM PDT | | | | +-------+ +-----+---+---+ +---+---+ | | | +---+---+ + +---------+ +---+ +---+ | dextrose 5%-lactated ringers IV | New Bag | 11/11/19 | | 75 mL/hr | | | intravenous, CONTINUOUS, | | 09 5:45 | | | | | Starting 11/09/08 at 0700, | | AM PDT | | | | | Until 11/10/08 at 1622 | | | | | | + +---------+ +---+ +---+ +---------+ +---+ +---+ | New Bag | 11/10/19 | | 75 mL/hr | | | | 09 8:00 | | | | | | PM PDT | | | | +---------+ +---+ +---+ | New Bag | 11/10/19 | | 75 mL/hr | | | | 09 7:00 | | | | | | AM PDT | | | | +---------+ +---+ +---+ +---+---+ | | | +---+---+ + +---------+ +---+ +---+ | dextrose 5%-lactated ringers IV | New Bag | 11/11/19 | | 10 mL/hr | | | intravenous, CONTINUOUS, | | 09 4:30 | | | | | Starting 11/10/08 at 1630, | | PM PDT | | | | | Until Loraine 11/22/08 at 0755 | | | | | | + +---------+ +---+ +---+ +---+---+ | | | +---+---+ + +---------+ +---+ +---+ | dextrose 5%-lactated ringers IV | New Bag | 11/24/19 | | 75 mL/hr | | | intravenous, CONTINUOUS, | | 09 5:48 | | | | | Starting 11/23/08 at 0000, | | PM PDT | | | | | Until 12/02/08 at 0905 | | | | | | + +---------+ +---+ +---+ + + +---+ +---+ | Restarted | 11/24/19 | | 75 mL/hr | | | | 09 10:47 | | | | | | AM PDT | | | | + + +---+ +---+ | New Bag | 11/24/19 | | 75 mL/hr | | | | 09 12:00 | | | | | | AM PDT | | | | + + +---+ +---+ +---+---+ | | | +---+---+ + +-------+ +-------+---+---+ | diphenhydrAMINE (aka BENADRYL) | Given | 11/18/19 | 25 mg | | | | capsule 25 mg 25 mg, oral, EVERY | | 09 2:54 | | | | | 8 HOURS NEEDED, Starting Sat | | PM PDT | | | | | 11/17/08 at 1421, Until Tue | | | | | | | 12/04/08 at 2045, itching | | | | | | + +-------+ +-------+---+---+ +---+---+ | | | +---+---+ + +-------+ +-------+---+---+ | diphenhydrAMINE (aka BENADRYL) | Given | 11/17/19 | 50 mg | | | | capsule 50 mg 50 mg, oral, | | 09 6:48 | | | | | NEEDED, 1 dose, Starting Wed | | PM PDT | | | | | 11/07/08 at 1218, Until Wed11/16/08 | | | | | | | at 1848, premedication for blood | | | | | | | transfusion | | | | | | + +-------+ +-------+---+---+ +---+---+ | | | +---+---+ + +-------+ +--------+---+---+ | docusate sodium (aka COLACE) | Given | 11/24/19 | 100 mg | | | | capsule 100 mg 100 mg, oral, | | 09 1:44 | | | | | TWICE DAILY NEEDED, Starting | | PM PDT | | | | | 11/06/08 at 2016, Until Tue | | | | | | | 12/04/08 at 2044, constipation | | | | | | + +-------+ +--------+---+---+ +-------+ +--------+---+---+ | Given | 11/23/19 | 100 mg | | | | | 09 9:57 | | | | | | PM PDT | | | | +-------+ +--------+---+---+ | Given | 11/15/19 | 100 mg | | | | | 09 1:34 | | | | | | PM PDT | | | | +-------+ +--------+---+---+ +---+---+ | | | +---+---+ + +-------+ +-------+---+---+ | enoxaparin (aka LOVENOX) | Given | 11/21/19 | 70 mg | | | | injection 70 mg 70 mg, | | 09 9:37 | | | | | subcutaneous, TWICE DAILY, First | | PM PDT | | | | | dose on 11/11/08 at 1200, | | | | | | | Until Discontinued | | | | | | + +-------+ +-------+---+---+ +-------+ +-------+---+---+ | Given | 11/21/19 | 70 mg | | | | | 09 9:00 | | | | | | AM PDT | | | | +-------+ +-------+---+---+ | Given | 11/20/19 | 70 mg | | | | | 09 9:00 | | | | | | PM PDT | | | | +-------+ +-------+---+---+ +---+---+ | | | +---+---+ + +-------+ +-------+---+---+ | enoxaparin (aka LOVENOX) | Given | 11/27/19 | 80 mg | | | | injection 80 mg 80 mg, | | 09 9:00 | | | | | subcutaneous, TWICE DAILY, First | | AM PDT | | | | | dose on 11/24/08 at 0900, | | | | | | | Until Discontinued | | | | | | + +-------+ +-------+---+---+ +-------+ +-------+---+---+ | Given | 11/26/19 | 80 mg | | | | | 09 9:00 | | | | | | PM PDT | | | | +-------+ +-------+---+---+ | Given | 11/26/19 | 80 mg | | | | | 09 9:00 | | | | | | AM PDT | | | | +-------+ +-------+---+---+ +---+---+ | | | +---+---+ + +-------+ +-------+---+---+ | enoxaparin (aka LOVENOX) | Given | 11/27/19 | 80 mg | | | | injection 80 mg 80 mg, | | 09 9:43 | | | | | subcutaneous, ONCE, 1 dose, Mon | | PM PDT | | | | | 11/26/08 at 2100 | | | | | | + +-------+ +-------+---+---+ +---+---+ | | | +---+---+ + +-------+ +-------+---+---+ | enoxaparin (aka LOVENOX) | Given | 12/05/19 | 80 mg | | | | injection 80 mg 80 mg, | | 09 8:00 | | | | | subcutaneous, TWICE DAILY, First | | AM PDT | | | | | dose on Wed11/28/08 at 0900, | | | | | | | Until Discontinued | | | | | | + +-------+ +-------+---+---+ +-------+ +-------+---+---+ | Given | 12/04/19 | 80 mg | | | | | 09 9:00 | | | | | | PM PDT | | | | +-------+ +-------+---+---+ | Given | 12/04/19 | 80 mg | | | | | 09 9:00 | | | | | | AM PDT | | | | +-------+ +-------+---+---+ +---+---+ | | | +---+---+ + +-------+ +--------+---+---+ | fentanyl (aka SUBLIMAZE) | Given | 11/09/19 | 25 mcg | | | | injection 25-200 mcg 25-200 mcg, | | 09 1:00 | | | | | intravenous, POSTPROCEDURE PRN, | | AM PDT | | | | | Starting Loraine 11/08/08 at 0114, | | | | | | | Until Loraine 11/08/08 at 0149, | | | | | | | moderate pain | | | | | | + +-------+ +--------+---+---+ +-------+ +--------+---+---+ | Given | 11/09/19 | 25 mcg | | | | | 09 12:55 | | | | | | AM PDT | | | | +-------+ +--------+---+---+ | Given | 11/09/19 | 25 mcg | | | | | 09 12:35 | | | | | | AM PDT | | | | +-------+ +--------+---+---+ +---+---+ | | | +---+---+ + +-------+ +---------+---+---+ | fentanyl (aka SUBLIMAZE) | Given | 11/22/19 | 100 mcg | | | | injection 50-200 mcg 50-200 mcg, | | 09 2:19 | | | | | intravenous, POSTPROCEDURE PRN, | | PM PDT | | | | | Starting Wed11/21/08 at 1157, | | | | | | | Until Wed11/21/08 at 1505, | | | | | | | moderate pain | | | | | | + +-------+ +---------+---+---+ +---+---+ | | | +---+---+ + +-------+ +--------+---+---+ | fluconazole (aka DIFLUCAN) | Given | 11/10/19 | 200 mg | | | | tablet 200 mg 200 mg, oral, | | 09 10:00 | | | | | DAILY, 3 doses, First dose on Loraine | | PM PDT | | | | | 11/08/08 at 0900, Last dose on | | | | | | | 11/09/08 at 2200 | | | | | | + +-------+ +--------+---+---+ +-------+ +--------+---+---+ | Given | 11/09/19 | 200 mg | | | | | 09 10:00 | | | | | | PM PDT | | | | +-------+ +--------+---+---+ +---+---+ | | | +---+---+ + +-------+ +-------+---+---+ | furosemide (aka LASIX) | Given | 11/15/19 | 20 mg | | | | injection 20 mg 20 mg, | | 09 9:15 | | | | | intravenous, ONCE, 1 dose, Wed | | AM PDT | | | | | 11/14/08 at 0800 | | | | | | + +-------+ +-------+---+---+ +---+---+ | | | +---+---+ + + + + +---------+---+ | heparin in D5W 100 units/mL IV | Rate/Dos | 11/08/19 | 400 | 4 mL/hr | | | infusion 1-2,000 Units/hr | e Change | 12:00 | Units/hr | | | | (rounded to 0.01-20 mL/hr), | | PM PDT | | | | | intravenous, CONTINUOUS, Starting | | | | | | | 11/06/08 at 2330, Until Wed | | | | | | | 11/07/08 at 1523 | | | | | | + + + + +---------+---+ +---------+ + +---------+---+ | New Bag | 11/08/19 | 800 | 8 mL/hr | | | | 09 12:34 | Units/hr | | | | | AM PDT | | | | +---------+ + +---------+---+ +---+---+ | | | +---+---+ + +---------+ + +---------+---+ | heparin in D5W 100 units/mL IV | New Bag | 11/10/19 | 400 | 4 mL/hr | | | infusion 400 Units/hr (rounded | | 09 5:19 | Units/hr | | | | to 4 mL/hr), intravenous, | | AM PDT | | | | | CONTINUOUS, Starting Loraine 11/08/08 | | | | | | | at 0130, Until 11/10/08 at | | | | | | | 1622 | | | | | | + +---------+ + +---------+---+ +---+---+ | | | +---+---+ + +-------+ + +---+---+ | heparin lock flush IV 50 Units | Given | 11/23/19 | 50 Units | | | | 50 Units, intravenous, | | 09 7:00 | | | | | NEEDED, Starting Loraine 11/15/08 at | | AM PDT | | | | | 1408, Until 12/04/08 at 2045, | | | | | | | line patency, per protocol | | | | | | + +-------+ + +---+---+ +-------+ + +---+---+ | Given | 11/23/19 | 50 Units | | | | | 09 4:34 | | | | | | AM PDT | | | | +-------+ + +---+---+ | Given | 11/23/19 | 50 Units | | | | | 09 4:33 | | | | | | AM PDT | | | | +-------+ + +---+---+ +---+---+ | | | +---+---+ + +-------+ +--------+---+---+ | HYDROmorphone (aka DILAUDID) | Given | 11/09/19 | 0.2 mg | | | | injection 0.2-1 mg 0.2-1 mg, | | 09 3:15 | | | | | intravenous, EVERY 2 HOURS | | AM PDT | | | | | NEEDED, Starting Wed11/08/08 at | | | | | | | 0248, Until Wed11/08/08 at 1818, | | | | | | | moderate pain | | | | | | + +-------+ +--------+---+---+ +-------+ +--------+---+---+ | Given | 11/09/19 | 0.2 mg | | | | | 09 2:30 | | | | | | AM PDT | | | | +-------+ +--------+---+---+ +---+---+ | | | +---+---+ + +-------+ +------+---+---+ | HYDROmorphone (aka DILAUDID) | Given | 11/22/19 | 1 mg | | | | injection 0.2-4 mg 0.2-4 mg, | | 09 1:53 | | | | | intravenous, POSTPROCEDURE PRN, | | PM PDT | | | | | Starting Wed11/21/08 at 1157, | | | | | | | Until Wed11/21/08 at 1505, | | | | | | | moderate pain | | | | | | + +-------+ +------+---+---+ +---+---+ | | | +---+---+ + +-------+ +--------+---+---+ | HYDROmorphone (aka DILAUDID) | Given | 11/08/19 | 0.2 mg | | | | injection 0.5-1.5 mg 0.5-1.5 mg, | | 09 7:43 | | | | | intravenous, EVERY 3 HOURS | | PM PDT | | | | | NEEDED, Starting Wed11/06/08 at | | | | | | | 2111, Until Wed11/08/08 at 0247, | | | | | | | moderate pain | | | | | | + +-------+ +--------+---+---+ +-------+ +--------+---+---+ | Given | 11/08/19 | 0.5 mg | | | | | 09 12:55 | | | | | | PM PDT | | | | +-------+ +--------+---+---+ | Given | 11/08/19 | 0.5 mg | | | | | 09 12:17 | | | | | | PM PDT | | | | +-------+ +--------+---+---+ +---+---+ | | | +---+---+ + +-------+ +------+---+---+ | HYDROmorphone (aka DILAUDID) | Given | 12/02/19 | 2 mg | | | | injection 1-2 mg 1-2 mg, | | 09 7:03 | | | | | intravenous, EVERY 4 HOURS | | AM PDT | | | | | NEEDED, Starting Wed11/13/08 at | | | | | | | 0940, Until 12/04/08 at 2045, | | | | | | | moderate pain, OXYCODONE FIRST | | | | | | + +-------+ +------+---+---+ +-------+ +------+---+---+ | Given | 12/01/19 | 2 mg | | | | | 09 4:30 | | | | | | PM PDT | | | | +-------+ +------+---+---+ | Given | 11/27/19 | 1 mg | | | | | 09 9:43 | | | | | | PM PDT | | | | +-------+ +------+---+---+ +---+---+ | | | +---+---+ + +-------+ +--------+---+---+ | HYDROmorphone (aka DILAUDID) | Given | 11/24/19 | 0.2 mg | | | | injection 1 dose, Starting Fri | | 09 10:30 | | | | | 11/23/08 at 1020, Until Fri | | AM PDT | | | | | 11/23/08 at 1030 | | | | | | + +-------+ +--------+---+---+ +---+---+ | | | +---+---+ + + + +----+--------+---+ | HYDROmorphone 0.5 mg/mL LABOR MEDIATOR | Rate/Dos | 11/12/19 | mg | mL/hr | | | infusion (ADULT, Pyxis) | e Change | 09 7:18 | | | | | intravenous, CONTINUOUS, Starting | | PM PDT | | | | | Loraine 11/08/08 at 1600, Until Tue | | | | | | | 11/13/08 at 0941 | | | | | | + + + +----+--------+---+ + + +--------+--------+---+ | Rate/Dose Change | 11/11/19 | 0.4 mg | mL/hr | | | | 09 1:00 | | | | | | PM PDT | | | | + + +--------+--------+---+ | Rate/Dose Change | 11/11/19 | 0.5 mg | | | | | 09 8:00 | | | | | | AM PDT | | | | + + +--------+--------+---+ +---+---+ | | | +---+---+ + +-------+ +---------+---+---+ | insulin aspart (aka NOVOLOG) | Given | 11/15/19 | 8 Units | | | | injection 1-16 Units 1-16 Units, | | 09 12:20 | | | | | subcutaneous, BEFORE MEALS AND | | PM PDT | | | | | BEDTIME, First dose on Sat | | | | | | | 11/10/08 at 1700, Until | | | | | | | Discontinued | | | | | | + +-------+ +---------+---+---+ +-------+ +---------+---+---+ | Given | 11/15/19 | 6 Units | | | | | 09 8:45 | | | | | | AM PDT | | | | +-------+ +---------+---+---+ | Given | 11/14/19 | 2 Units | | | | | 09 9:00 | | | | | | PM PDT | | | | +-------+ +---------+---+---+ +---+---+ | | | +---+---+ + +-------+ +---------+---+---+ | insulin aspart (aka NOVOLOG) | Given | 11/16/19 | 3 Units | | | | injection 1-16 Units 1-16 Units, | | 09 9:38 | | | | | subcutaneous, BEFORE MEALS AND | | PM PDT | | | | | BEDTIME, First dose on Wed | | | | | | | 11/14/08 at 2100, Until | | | | | | | Discontinued | | | | | | + +-------+ +---------+---+---+ +-------+ +---------+---+---+ | Given | 11/16/19 | 6 Units | | | | | 09 6:04 | | | | | | PM PDT | | | | +-------+ +---------+---+---+ | Given | 11/16/19 | 4 Units | | | | | 09 12:39 | | | | | | PM PDT | | | | +-------+ +---------+---+---+ +---+---+ | | | +---+---+ + +-------+ + +---+---+ | insulin aspart (aka NOVOLOG) | Given | 11/24/19 | 16 Units | | | | injection 1-16 Units 1-16 Units, | | 09 5:00 | | | | | subcutaneous, BEFORE MEALS AND | | PM PDT | | | | | BEDTIME, First dose on Wed | | | | | | | 11/16/08 at 1700, Until | | | | | | | Discontinued | | | | | | + +-------+ + +---+---+ +-------+ +---------+---+---+ | Given | 11/24/19 | 6 Units | | | | | 09 1:48 | | | | | | PM PDT | | | | +-------+ +---------+---+---+ | Given | 11/23/19 | 2 Units | | | | | 09 9:00 | | | | | | PM PDT | | | | +-------+ +---------+---+---+ +---+---+ | | | +---+---+ + +-------+ +---------+---+---+ | insulin aspart (aka NOVOLOG) | Given | 12/04/19 | 4 Units | | | | injection 1-16 Units 1-16 Units, | | 09 5:00 | | | | | subcutaneous, BEFORE MEALS AND | | PM PDT | | | | | BEDTIME, First dose on Wed | | | | | | | 11/23/08 at 2100, Until | | | | | | | Discontinued | | | | | | + +-------+ +---------+---+---+ +-------+ + +---+---+ | Given | 12/04/19 | 10 Units | | | | | 09 11:00 | | | | | | AM PDT | | | | +-------+ + +---+---+ | Given | 12/03/19 | 2 Units | | | | | 09 9:00 | | | | | | PM PDT | | | | +-------+ + +---+---+ +---+---+ | | | +---+---+ + +-------+ + +---+---+ | insulin aspart (aka NOVOLOG) | Given | 11/15/19 | 10 Units | | | | injection 10 Units 10 Units, | | 09 12:23 | | | | | subcutaneous, THREE TIMES DAILY | | PM PDT | | | | | BEFORE MEALS, First dose on Wed | | | | | | | 11/14/08 at 1100, Until | | | | | | | Discontinued | | | | | | + +-------+ + +---+---+ +---+---+ | | | +---+---+ + +-------+ + +---+---+ | insulin aspart (aka NOVOLOG) | Given | 11/15/19 | 10 Units | | | | injection 10 Units 10 Units, | | 09 5:00 | | | | | subcutaneous, THREE TIMES DAILY | | PM PDT | | | | | BEFORE MEALS, First dose on Wed | | | | | | | 11/14/08 at 1700, Until | | | | | | | Discontinued | | | | | | + +-------+ + +---+---+ +---+---+ | | | +---+---+ + +-------+ +---------+---+---+ | insulin aspart (aka NOVOLOG) | Given | 11/22/19 | 5 Units | | | | injection 10 Units 10 Units, | | 09 6:47 | | | | | subcutaneous, THREE TIMES DAILY | | PM PDT | | | | | BEFORE MEALS, First dose on Sat | | | | | | | 11/17/08 at 1145, Until | | | | | | | Discontinued | | | | | | + +-------+ +---------+---+---+ +-------+ + +---+---+ | Given | 11/21/19 | 10 Units | | | | | 09 5:24 | | | | | | PM PDT | | | | +-------+ + +---+---+ | Given | 11/21/19 | 10 Units | | | | | 09 11:00 | | | | | | AM PDT | | | | +-------+ + +---+---+ +---+---+ | | | +---+---+ + +-------+ + +---+---+ | insulin aspart (aka NOVOLOG) | Given | 11/29/19 | 10 Units | | | | injection 10 Units 10 Units, | | 09 12:24 | | | | | subcutaneous, THREE TIMES DAILY | | PM PDT | | | | | BEFORE MEALS, First dose on Fri | | | | | | | 11/23/08 at 1845, Until | | | | | | | Discontinued | | | | | | + +-------+ + +---+---+ +-------+ + +---+---+ | Given | 11/29/19 | 10 Units | | | | | 09 8:10 | | | | | | AM PDT | | | | +-------+ + +---+---+ | Given | 11/27/19 | 10 Units | | | | | 09 5:00 | | | | | | PM PDT | | | | +-------+ + +---+---+ +---+---+ | | | +---+---+ + +-------+ + +---+---+ | insulin aspart (aka NOVOLOG) | Given | 11/18/19 | 12 Units | | | | injection 12 Units 12 Units, | | 09 7:00 | | | | | subcutaneous, THREE TIMES DAILY | | AM PDT | | | | | BEFORE MEALS, First dose on Wed | | | | | | | 11/14/08 at 1245, Until | | | | | | | Discontinued | | | | | | + +-------+ + +---+---+ +---+---+ | | | +---+---+ + +-------+ +---------+---+---+ | insulin aspart (aka NOVOLOG) | Given | 11/14/19 | 5 Units | | | | injection 5 Units 5 Units, | | 09 8:40 | | | | | subcutaneous, THREE TIMES DAILY | | AM PDT | | | | | BEFORE MEALS, First dose on Sat | | | | | | | 11/10/08 at 1700, Until | | | | | | | Discontinued | | | | | | + +-------+ +---------+---+---+ +-------+ +---------+---+---+ | Given | 11/13/19 | 5 Units | | | | | 09 5:00 | | | | | | PM PDT | | | | +-------+ +---------+---+---+ | Given | 11/13/19 | 5 Units | | | | | 09 2:18 | | | | | | PM PDT | | | | +-------+ +---------+---+---+ +---+---+ | | | +---+---+ + +-------+ +---------+---+---+ | insulin aspart (aka NOVOLOG) | Given | 11/24/19 | 5 Units | | | | injection 5 Units 5 Units, | | 09 5:52 | | | | | subcutaneous, THREE TIMES DAILY | | PM PDT | | | | | BEFORE MEALS, First dose on [place] | | | | | | | 11/22/08 at 1100, Until | | | | | | | Discontinued | | | | | | + +-------+ +---------+---+---+ +-------+ +---------+---+---+ | Given | 11/24/19 | 5 Units | | | | | 09 1:50 | | | | | | PM PDT | | | | +-------+ +---------+---+---+ | Given | 11/23/19 | 5 Units | | | | | 09 5:39 | | | | | | PM PDT | | | | +-------+ +---------+---+---+ +---+---+ | | | +---+---+ + +-------+ +---------+---+---+ | insulin aspart (aka NOVOLOG) | Given | 11/30/19 | 5 Units | | | | injection 5 Units 5 Units, | | 09 8:57 | | | | | subcutaneous, THREE TIMES DAILY | | AM PDT | | | | | BEFORE MEALS, First dose on [place] | | | | | | | 11/29/08 at 0700, Until | | | | | | | Discontinued | | | | | | + +-------+ +---------+---+---+ +---+---+ | | | +---+---+ + +-------+ +---------+---+---+ | insulin aspart (aka NOVOLOG) | Given | 11/14/19 | 7 Units | | | | injection 7 Units 7 Units, | | 09 4:32 | | | | | subcutaneous, THREE TIMES DAILY | | PM PDT | | | | | BEFORE MEALS, First dose on Wed | | | | | | | 11/13/08 at 1100, Until | | | | | | | Discontinued | | | | | | + +-------+ +---------+---+---+ +-------+ +---------+---+---+ | Given | 11/14/19 | 7 Units | | | | | 09 1:14 | | | | | | PM PDT | | | | +-------+ +---------+---+---+ +---+---+ | | | +---+---+ + +-------+ +---------+---+---+ | insulin aspart (aka NOVOLOG) | Given | 12/05/19 | 8 Units | | | | injection 8 Units 8 Units, | | 09 8:22 | | | | | subcutaneous, THREE TIMES DAILY | | AM PDT | | | | | BEFORE MEALS, First dose on Wed | | | | | | | 11/29/08 at 1100, Until | | | | | | | Discontinued | | | | | | + +-------+ +---------+---+---+ +-------+ +---------+---+---+ | Given | 12/04/19 | 8 Units | | | | | 09 5:00 | | | | | | PM PDT | | | | +-------+ +---------+---+---+ | Given | 12/04/19 | 8 Units | | | | | 09 11:00 | | | | | | AM PDT | | | | +-------+ +---------+---+---+ +---+---+ | | | +---+---+ + +-------+ + +---+---+ | insulin glargine (aka LANTUS) | Given | 11/13/19 | 35 Units | | | | injection 35 Units 35 Units, | | 09 8:36 | | | | | subcutaneous, DAILY, First dose | | AM PDT | | | | | on Wed11/12/08 at 0900, Until | | | | | | | Discontinued | | | | | | + +-------+ + +---+---+ +---+---+ | | | +---+---+ + +-------+ + +---+---+ | insulin NPH (aka HUMULIN | Given | 11/22/19 | 13 Units | | | | N,NOVOLIN N) injection 13 Units | | 09 9:15 | | | | | 13 Units, subcutaneous, EVERY 12 | | PM PDT | | | | | HOURS, First dose on Wed11/21/08 | | | | | | | at 2115, Until Discontinued | | | | | | + +-------+ + +---+---+ +---+---+ | | | +---+---+ + +-------+ + +---+---+ | insulin NPH (aka HUMULIN | Given | 11/30/19 | 16 Units | | | | N,NOVOLIN N) injection 16 Units | | 09 8:15 | | | | | 16 Units, subcutaneous, EVERY 12 | | AM PDT | | | | | HOURS, First dose on Wed11/28/08 | | | | | | | at 2014, Until Discontinued | | | | | | + +-------+ + +---+---+ +-------+ + +---+---+ | Given | 11/29/19 | 16 Units | | | | | 09 8:59 | | | | | | PM PDT | | | | +-------+ + +---+---+ +---+---+ | | | +---+---+ + +-------+ + +---+---+ | insulin NPH (aka HUMULIN | Given | 11/14/19 | 18 Units | | | | N,NOVOLIN N) injection 18 Units | | 09 8:40 | | | | | 18 Units, subcutaneous, TWICE | | AM PDT | | | | | DAILY WITH MEALS, First dose on | | | | | | | 11/13/08 at 0730, Until | | | | | | | Discontinued | | | | | | + +-------+ + +---+---+ +---+---+ | | | +---+---+ + +-------+ + +---+---+ | insulin NPH (aka HUMULIN | Given | 11/23/19 | 18 Units | | | | N,NOVOLIN N) injection 18 Units | | 09 9:00 | | | | | 18 Units, subcutaneous, EVERY 12 | | PM PDT | | | | | HOURS, First dose on [place] 11/22/08 | | | | | | | at 0900, Until Discontinued | | | | | | + +-------+ + +---+---+ +-------+ + +---+---+ | Given | 11/23/19 | 18 Units | | | | | 09 9:00 | | | | | | AM PDT | | | | +-------+ + +---+---+ +---+---+ | | | +---+---+ + +-------+ + +---+---+ | insulin NPH (aka HUMULIN | Given | 11/24/19 | 18 Units | | | | N,NOVOLIN N) injection 18 Units | | 09 6:35 | | | | | 18 Units, subcutaneous, EVERY 12 | | PM PDT | | | | | HOURS, First dose on Wed11/23/08 | | | | | | | at 1900, Until Discontinued | | | | | | + +-------+ + +---+---+ +---+---+ | | | +---+---+ + +-------+ + +---+---+ | insulin NPH (aka HUMULIN | Given | 11/14/19 | 22 Units | | | | N,NOVOLIN N) injection 22 Units | | 09 4:32 | | | | | 22 Units, subcutaneous, TWICE | | PM PDT | | | | | DAILY WITH MEALS, First dose on | | | | | | | 11/13/08 at 0930, Until | | | | | | | Discontinued | | | | | | + +-------+ + +---+---+ +---+---+ | | | +---+---+ + +-------+ + +---+---+ | insulin NPH (aka HUMULIN | Given | 11/25/19 | 22 Units | | | | N,NOVOLIN N) injection 22 Units | | 09 7:00 | | | | | 22 Units, subcutaneous, EVERY 12 | | PM PDT | | | | | HOURS, First dose on Wed11/23/08 | | | | | | | at 1900, Until Discontinued | | | | | | + +-------+ + +---+---+ +-------+ + +---+---+ | Given | 11/25/19 | 22 Units | | | | | 09 7:00 | | | | | | AM PDT | | | | +-------+ + +---+---+ | Given | 11/24/19 | 22 Units | | | | | 09 10:06 | | | | | | PM PDT | | | | +-------+ + +---+---+ +---+---+ | | | +---+---+ + +-------+ + +---+---+ | insulin NPH (aka HUMULIN | Given | 12/01/19 | 22 Units | | | | N,NOVOLIN N) injection 22 Units | | 09 8:15 | | | | | 22 Units, subcutaneous, EVERY 12 | | PM PDT | | | | | HOURS, First dose on [place] 11/29/08 | | | | | | | at 2014, Until Discontinued | | | | | | + +-------+ + +---+---+ +-------+ + +---+---+ | Given | 12/01/19 | 22 Units | | | | | 09 8:15 | | | | | | AM PDT | | | | +-------+ + +---+---+ | Given | 11/30/19 | 22 Units | | | | | 09 8:15 | | | | | | PM PDT | | | | +-------+ + +---+---+ +---+---+ | | | +---+---+ + +-------+ + +---+---+ | insulin NPH (aka HUMULIN | Given | 12/03/19 | 24 Units | | | | N,NOVOLIN N) injection 24 Units | | 09 9:03 | | | | | 24 Units, subcutaneous, EVERY 12 | | AM PDT | | | | | HOURS, First dose on Wed12/01/08 | | | | | | | at 1045, Until Discontinued | | | | | | + +-------+ + +---+---+ +-------+ + +---+---+ | Given | 12/02/19 | 24 Units | | | | | 09 10:45 | | | | | | PM PDT | | | | +-------+ + +---+---+ | Given | 12/02/19 | 24 Units | | | | | 09 10:45 | | | | | | AM PDT | | | | +-------+ + +---+---+ +---+---+ | | | +---+---+ + +-------+ + +---+---+ | insulin NPH (aka HUMULIN | Given | 11/18/19 | 26 Units | | | | N,NOVOLIN N) injection 26 Units | | 09 12:31 | | | | | 26 Units, subcutaneous, EVERY 12 | | AM PDT | | | | | HOURS, First dose on Wed11/16/08 | | | | | | | at 1330, Until Discontinued | | | | | | + +-------+ + +---+---+ +---+---+ | | | +---+---+ + +-------+ + +---+---+ | insulin NPH (aka HUMULIN | Given | 11/20/19 | 26 Units | | | | N,NOVOLIN N) injection 26 Units | | 09 12:00 | | | | | 26 Units, subcutaneous, EVERY 12 | | PM PDT | | | | | HOURS, First dose on Wed11/19/08 | | | | | | | at 1200, Until Discontinued | | | | | | + +-------+ + +---+---+ +---+---+ | | | +---+---+ + +-------+ + +---+---+ | insulin NPH (aka HUMULIN | Given | 11/22/19 | 13 Units | | | | N,NOVOLIN N) injection 26 Units | | 09 8:07 | | | | | 26 Units, subcutaneous, EVERY 12 | | AM PDT | | | | | HOURS, First dose on 9/22/09 | | | | | | | at 0900, Until Discontinued | | | | | | + +-------+ + +---+---+ +-------+ + +---+---+ | Given | 11/21/19 | 26 Units | | | | | 09 9:41 | | | | | | PM PDT | | | | +-------+ + +---+---+ | Given | 11/21/19 | 26 Units | | | | | 09 8:50 | | | | | | AM PDT | | | | +-------+ + +---+---+ +---+---+ | | | +---+---+ + +-------+ + +---+---+ | insulin NPH (aka HUMULIN | Given | 11/29/19 | 26 Units | | | | N,NOVOLIN N) injection 26 Units | | 09 8:15 | | | | | 26 Units, subcutaneous, EVERY 12 | | AM PDT | | | | | HOURS, First dose on 11/25/08 | | | | | | | at 0815, Until Discontinued | | | | | | + +-------+ + +---+---+ +-------+ + +---+---+ | Given | 11/28/19 | 26 Units | | | | | 09 9:05 | | | | | | PM PDT | | | | +-------+ + +---+---+ | Given | 11/28/19 | 20 Units | | | | | 09 8:15 | | | | | | AM PDT | | | | +-------+ + +---+---+ +---+---+ | | | +---+---+ + +-------+ + +---+---+ | insulin NPH (aka HUMULIN | Given | 12/05/19 | 26 Units | | | | N,NOVOLIN N) injection 26 Units | | 09 8:23 | | | | | 26 Units, subcutaneous, EVERY 12 | | AM PDT | | | | | HOURS, First dose on 12/02/08 | | | | | | | at 2100, Until Discontinued | | | | | | + +-------+ + +---+---+ +-------+ + +---+---+ | Given | 12/04/19 | 26 Units | | | | | 09 9:00 | | | | | | PM PDT | | | | +-------+ + +---+---+ | Given | 12/04/19 | 26 Units | | | | | 09 9:00 | | | | | | AM PDT | | | | +-------+ + +---+---+ +---+---+ | | | +---+---+ + +-------+ + +---+---+ | insulin NPH (aka HUMULIN | Given | 11/20/19 | 28 Units | | | | N,NOVOLIN N) injection 28 Units | | 09 10:04 | | | | | 28 Units, subcutaneous, EVERY 12 | | AM PDT | | | | | HOURS, First dose on 11/17/08 | | | | | | | at 0900, Until Discontinued | | | | | | + +-------+ + +---+---+ +-------+ + +---+---+ | Given | 11/19/19 | 28 Units | | | | | 09 9:00 | | | | | | PM PDT | | | | +-------+ + +---+---+ | Given | 11/19/19 | 28 Units | | | | | 09 8:43 | | | | | | AM PDT | | | | +-------+ + +---+---+ +---+---+ | | | +---+---+ + +-------+ + +---+---+ | insulin NPH (aka HUMULIN | Given | 11/15/19 | 30 Units | | | | N,NOVOLIN N) injection 30 Units | | 09 8:00 | | | | | 30 Units, subcutaneous, TWICE | | AM PDT | | | | | DAILY WITH MEALS, First dose on | | | | | | | 11/14/08 at 0800, Until | | | | | | | Discontinued | | | | | | + +-------+ + +---+---+ +---+---+ | | | +---+---+ + +-------+ + +---+---+ | insulin NPH (aka HUMULIN | Given | 11/16/19 | 30 Units | | | | N,NOVOLIN N) injection 30 Units | | 09 9:39 | | | | | 30 Units, subcutaneous, EVERY 12 | | PM PDT | | | | | HOURS, First dose on Wed11/14/08 | | | | | | | at 2145, Until Discontinued | | | | | | + +-------+ + +---+---+ +-------+ + +---+---+ | Given | 11/16/19 | 30 Units | | | | | 09 9:45 | | | | | | AM PDT | | | | +-------+ + +---+---+ | Given | 11/15/19 | 30 Units | | | | | 09 9:45 | | | | | | PM PDT | | | | +-------+ + +---+---+ +---+---+ | | | +---+---+ + +-------+ +---------+---+---+ | insulin NPH (aka HUMULIN | Given | 11/25/19 | 5 Units | | | | N,NOVOLIN N) injection 5 Units 5 | | 09 1:30 | | | | | Units, subcutaneous, ONCE, 1 | | AM PDT | | | | | dose, 11/24/08 at 0130 | | | | | | + +-------+ +---------+---+---+ +---+---+ | | | +---+---+ + +-------+ +---------+---+---+ | insulin regular (aka HUMULIN | Given | 11/08/19 | 5 Units | | | | R,NOVOLIN R) injection 5 Units 5 | | 09 7:15 | | | | | Units, intravenous, ONCE, 1 | | AM PDT | | | | | dose, 11/07/08 at 0715 | | | | | | + +-------+ +---------+---+---+ +---+---+ | | | +---+---+ + + + + +-------+---+ | insulin regular 1 unit/mL in | Rate/Dos | 11/11/19 | 4.5 | 4.5 | | | NaCl 0.9% IV infusion (Pyxis) | e Change | 09 1:00 | Units/hr | mL/hr | | | 0.25-40 Units/hr (rounded to | | PM PDT | | | | | 0.25-40 mL/hr), intravenous, | | | | | | | CONTINUOUS, Starting 11/10/08 | | | | | | | at 1015, Until 11/10/08 at | | | | | | | 1622 | | | | | | + + + + +-------+---+ + + + +---------+---+ | Rate/Dose Change | 11/11/19 | 3 | 3 mL/hr | | | | 09 11:00 | Units/hr | | | | | AM PDT | | | | + + + +---------+---+ | New Bag | 11/11/19 | 2 | 2 mL/hr | | | | 09 10:15 | Units/hr | | | | | AM PDT | | | | + + + +---------+---+ +---+---+ | | | +---+---+ + + + + +---------+---+ | insulin regular 1 unit/mL IV | Rate/Dos | 11/11/19 | 2 | 2 mL/hr | | | infusion (non-Pyxis) 0.25-40 | e Change | 09 4:00 | Units/hr | | | | Units/hr (rounded to 0.25-40 | | AM PDT | | | | | mL/hr), intravenous, CONTINUOUS, | | | | | | | Starting 11/07/08 at 0000, | | | | | | | Until 11/10/08 at 1012 | | | | | | + + + + +---------+---+ + + + +---------+---+ | Rate/Dose Change | 11/10/19 | 2.5 | 2.5 | | | | 09 11:00 | Units/hr | mL/hr | | | | PM PDT | | | | + + + +---------+---+ | Rate/Dose Change | 11/10/19 | 3 | 3 mL/hr | | | | 09 9:00 | Units/hr | | | | | PM PDT | | | | + + + +---------+---+ +---+---+ | | | +---+---+ + +-------+ +-------+---+---+ | iodixanol (aka VISIPAQUE) | Given | 11/08/19 | 50 mL | | | | injection 120 mL 120 mL, | | 09 10:45 | | | | | intravenous, ONCE, 1 dose, Wed | | AM PDT | | | | | 11/07/08 at 1045 | | | | | | + +-------+ +-------+---+---+ +---+---+ | | | +---+---+ + +-------+ + +---+---+ | lactated ringers IV bolus | Given | 11/09/19 | 1,000 mL | | | | 1,000 mL, intravenous, ONCE, 1 | | 09 2:15 | | | | | dose, [place] 11/08/08 at 0215 | | AM PDT | | | | + +-------+ + +---+---+ +---+---+ | | | +---+---+ + +-------+ + +---+---+ | lactated ringers IV bolus | Given | 11/09/19 | 1,000 mL | | | | 1,000 mL, intravenous, ONCE, 1 | | 09 8:45 | | | | | dose, [facility] 11/08/08 at 2045 | | PM PDT | | | | + +-------+ + +---+---+ +---+---+ | | | +---+---+ + +-------+ + +---+---+ | lactated ringers IV bolus | Given | 11/10/19 | 1,000 mL | | | | 1,000 mL, intravenous, ONCE, 1 | | 09 1:45 | | | | | dose, [place] 11/09/08 at 0145 | | AM PDT | | | | + +-------+ + +---+---+ +---+---+ | | | +---+---+ + +-------+ +--------+---+---+ | lactated ringers IV infusion | Given | 11/09/19 | 500 mL | | | | 500 mL, intravenous, | | 09 1:23 | | | | | POSTPROCEDURE PRN, 1 dose, | | AM PDT | | | | | Starting [place] 11/08/08 at 0121, | | | | | | | Until Wed11/08/08 at 0123, | | | | | | | hypotension | | | | | | + +-------+ +--------+---+---+ +---+---+ | | | +---+---+ + +-------+ +------+---+---+ | lisinopril (aka PRINIVIL) | Given | 12/05/19 | 5 mg | | | | tablet 5 mg 5 mg, oral, DAILY, | | 09 7:45 | | | | | First dose on Wed11/14/08 at | | AM PDT | | | | | 1245, Until Discontinued | | | | | | + +-------+ +------+---+---+ +-------+ +------+---+---+ | Given | 12/04/19 | 5 mg | | | | | 09 9:00 | | | | | | AM PDT | | | | +-------+ +------+---+---+ | Given | 12/03/19 | 5 mg | | | | | 09 9:05 | | | | | | AM PDT | | | | +-------+ +------+---+---+ +---+---+ | | | +---+---+ + +-------+ +-----+---+---+ | magnesium sulfate IV (premade) | Given | 11/10/19 | 2 g | | | | 2 g 2 g, intravenous, ONCE, 1 | | 09 4:49 | | | | | dose, 11/09/08 at 0400 | | AM PDT | | | | + +-------+ +-----+---+---+ +---+---+ | | | +---+---+ + +-------+ +-----+---+---+ | magnesium sulfate IV (premade) | Given | 11/10/19 | 2 g | | | | 2 g 2 g, intravenous, ONCE, 1 | | 09 9:00 | | | | | dose, 11/09/08 at 0900 | | AM PDT | | | | + +-------+ +-----+---+---+ +---+---+ | | | +---+---+ + +-------+ +-------+---+---+ | medroxyPROGESTERone (aka | Given | 12/05/19 | 20 mg | | | | PROVERA) tablet 20 mg 20 mg, | | 09 8:25 | | | | | oral, DAILY, First dose on [place] | | AM PDT | | | | | 11/08/08 at 0400, Until | | | | | | | Discontinued | | | | | | + +-------+ +-------+---+---+ +-------+ +-------+---+---+ | Given | 12/04/19 | 20 mg | | | | | 09 9:00 | | | | | | AM PDT | | | | +-------+ +-------+---+---+ | Given | 12/03/19 | 20 mg | | | | | 09 9:06 | | | | | | AM PDT | | | | +-------+ +-------+---+---+ +---+---+ | | | +---+---+ + +-------+ +-------+---+---+ | metoprolol (aka LOPRESSOR) | Given | 11/08/19 | 25 mg | | | | tablet 25 mg 25 mg, oral, TWICE | | 9:00 | | | | | DAILY, First dose on Wed11/06/08 | | AM PDT | | | | | at 2100, Until Discontinued | | | | | | + +-------+ +-------+---+---+ +-------+ +-------+---+---+ | Given | 11/07/19 | 25 mg | | | | | 09 10:22 | | | | | | PM PDT | | | | +-------+ +-------+---+---+ +---+---+ | | | +---+---+ + +-------+ +-------+---+---+ | metoprolol (aka LOPRESSOR) | Given | 12/05/19 | 25 mg | | | | tablet 25 mg 25 mg, oral, TWICE | | 8:00 | | | | | DAILY, First dose on Wed11/13/08 | | AM PDT | | | | | at 2100, Until Discontinued | | | | | | + +-------+ +-------+---+---+ +-------+ +-------+---+---+ | Given | 12/04/19 | 25 mg | | | | | 09 9:00 | | | | | | PM PDT | | | | +-------+ +-------+---+---+ | Given | 12/04/19 | 25 mg | | | | | 09 9:00 | | | | | | AM PDT | | | | +-------+ +-------+---+---+ +---+---+ | | | +---+---+ + +-------+ +---------+---+---+ | metoprolol tartrate (aka | Given | 11/14/19 | 12.5 mg | | | | LOPRESSOR) tablet 12.5 mg 12.5 | | 09 9:00 | | | | | mg, oral, TWICE DAILY, First dose | | AM PDT | | | | | on Wed11/12/08 at 0900, Until | | | | | | | Discontinued | | | | | | + +-------+ +---------+---+---+ +-------+ +---------+---+---+ | Given | 11/13/19 | 12.5 mg | | | | | 09 9:00 | | | | | | PM PDT | | | | +-------+ +---------+---+---+ | Given | 11/13/19 | 12.5 mg | | | | | 09 10:58 | | | | | | AM PDT | | | | +-------+ +---------+---+---+ +---+---+ | | | +---+---+ + +---------+ +---+ +---+ | NaCl 0.9%-KCl 20 mEq/L IV | New Bag | 11/08/19 | | 75 mL/hr | | | intravenous, CONTINUOUS, Starting | | 09 3:10 | | | | | 11/07/08 at 0015, Until [place] | | PM PDT | | | | | 11/08/08 at 0121 | | | | | | + +---------+ +---+ +---+ +---------+ +---+ +---+ | New Bag | 11/08/19 | | 75 mL/hr | | | | 09 12:15 | | | | | | AM PDT | | | | +---------+ +---+ +---+ +---+---+ | | | +---+---+ + +---------+ +---+ +---+ | NaCl 0.9%-KCl 20 mEq/L IV | New Bag | 11/09/19 | | 75 mL/hr | | | intravenous, CONTINUOUS, Starting | | 09 5:02 | | | | | Loraine 11/08/08 at 0130, Until Fri | | AM PDT | | | | | 11/09/08 at 0658 | | | | | | + +---------+ +---+ +---+ +---+---+ | | | +---+---+ + +-------+ +------+---+---+ | ondansetron (aka ZOFRAN) | Given | 12/01/19 | 4 mg | | | | injection 4 mg 4 mg, | | 09 4:53 | | | | | intravenous, EVERY 12 HOURS | | PM PDT | | | | | NEEDED, Starting 11/06/08 at | | | | | | | 2125, Until Wed12/04/08 at 2045, | | | | | | | nausea/vomiting | | | | | | + +-------+ +------+---+---+ +-------+ +------+---+---+ | Given | 11/30/19 | 4 mg | | | | | 09 9:04 | | | | | | PM PDT | | | | +-------+ +------+---+---+ | Given | 11/27/19 | 4 mg | | | | | 09 6:29 | | | | | | AM PDT | | | | +-------+ +------+---+---+ +---+---+ | | | +---+---+ + +-------+ +------+---+---+ | oxycodone immediate release | Given | 11/08/19 | 5 mg | | | | (aka ROXICODONE) tablet 5-15 mg | | 09 2:52 | | | | | 5-15 mg, oral, EVERY 4 HOURS | | PM PDT | | | | | NEEDED, Starting Wed11/06/08 at | | | | | | | 2126, Until Wed11/08/08 at 1818, | | | | | | | severe pain | | | | | | + +-------+ +------+---+---+ +-------+ +------+---+---+ | Given | 11/08/19 | 5 mg | | | | | 09 1:14 | | | | | | PM PDT | | | | +-------+ +------+---+---+ +---+---+ | | | +---+---+ + +-------+ +-------+---+---+ | oxycodone immediate release | Given | 12/04/19 | 15 mg | | | | (aka ROXICODONE) tablet 5-20 mg | | 09 10:01 | | | | | 5-20 mg, oral, EVERY 3 HOURS | | PM PDT | | | | | NEEDED, Starting 11/13/08 at | | | | | | | 0940, Until 12/04/08 at 2045, | | | | | | | mild pain, moderate pain | | | | | | + +-------+ +-------+---+---+ +-------+ +-------+---+---+ | Given | 12/04/19 | 10 mg | | | | | 09 6:11 | | | | | | PM PDT | | | | +-------+ +-------+---+---+ | Given | 12/03/19 | 15 mg | | | | | 09 8:04 | | | | | | PM PDT | | | | +-------+ +-------+---+---+ +---+---+ | | | +---+---+ + +---------+ + +-------+---+ | PHENylephrine 0.2 mg/mL in NaCl | New Bag | 11/09/19 | 0.5 | 10.4 | | | 0.9% IV infusion (Pyxis) | | 09 4:00 | mcg/kg/m | mL/hr | | | 0.02-2 mcg/kg/min | | PM PDT | in | | | | 69.3 kg (rounded to 0.42-41.58 | | | | | | | mL/hr), intravenous, CONTINUOUS, | | | | | | | Starting Loraine 11/08/08 at 1600, | | | | | | | Until 11/09/08 at 0848 | | | | | | + +---------+ + +-------+---+ +---+---+ | | | +---+---+ + +-------+ +--------+---+---+ | potassium chloride (aka | Given | 11/14/19 | 20 mEq | | | | LORENA-MENDEZ) packet 20 mEq 20 mEq, | | 09 9:00 | | | | | oral, DAILY, First dose on Fri | | AM PDT | | | | | 11/09/08 at 0900, Until | | | | | | | Discontinued | | | | | | + +-------+ +--------+---+---+ +-------+ +--------+---+---+ | Given | 11/13/19 | 20 mEq | | | | | 09 8:39 | | | | | | AM PDT | | | | +-------+ +--------+---+---+ | Given | 11/12/19 | 20 mEq | | | | | 09 9:00 | | | | | | AM PDT | | | | +-------+ +--------+---+---+ +---+---+ | | | +---+---+ + +-------+ +--------+---+---+ | potassium chloride IV 40 mEq | Given | 11/14/19 | 40 mEq | | | | 40 mEq, intravenous, ONCE, 1 | | 09 8:37 | | | | | Travis christinasen 11/13/08 at 1915 | | PM PDT | | | | + +-------+ +--------+---+---+ +---+---+ | | | +---+---+ + +-------+ +--------+---+---+ | potassium chloride SR (aka | Given | 11/14/19 | 40 mEq | | | | K-DUR) tablet 40 mEq 40 mEq, | | 09 10:30 | | | | | oral, ONCE, 1 dose, [facility] 11/13/08 | | AM PDT | | | | | at 0945 | | | | | | + +-------+ +--------+---+---+ +---+---+ | | | +---+---+ + +-------+ +--------+---+---+ | potassium chloride SR (aka | Given | 11/16/19 | 40 mEq | | | | K-DUR) tablet 40 mEq 40 mEq, | | 09 9:15 | | | | | oral, ONCE, 1 dose, [facility] 11/15/08 | | AM PDT | | | | | at 0915 | | | | | | + +-------+ +--------+---+---+ +---+---+ | | | +---+---+ + +-------+ +--------+---+---+ | potassium chloride SR (aka | Given | 11/29/19 | 40 mEq | | | | K-DUR) tablet 40 mEq 40 mEq, | | 09 12:56 | | | | | oral, ONCE, 1 dose, 11/28/08 | | PM PDT | | | | | at 1100 | | | | | | + +-------+ +--------+---+---+ +---+---+ | | | +---+---+ + +-------+ +--------+---+---+ | potassium chloride SR (aka | Given | 12/03/19 | 40 mEq | | | | K-DUR) tablet 40 mEq 40 mEq, | | 09 5:46 | | | | | oral, ONCE, 1 dose, 12/02/08 | | PM PDT | | | | | at 1645 | | | | | | + +-------+ +--------+---+---+ +---+---+ | | | +---+---+ + +-------+ +---------+---+---+ | promethazine (aka PHENERGAN) | Given | 12/01/19 | 12.5 mg | | | | injection 12.5 mg 12.5 mg, | | 09 6:25 | | | | | intravenous, EVERY 6 HOURS | | PM PDT | | | | | NEEDED, Starting Wed11/22/08 at | | | | | | | 1134, Until Wed12/04/08 at 2045, | | | | | | | nausea/vomiting | | | | | | + +-------+ +---------+---+---+ +-------+ +---------+---+---+ | Given | 11/23/19 | 12.5 mg | | | | | 09 11:48 | | | | | | AM PDT | | | | +-------+ +---------+---+---+ +---+---+ | | | +---+---+ + +-------+ +-------+---+---+ | ranitidine (aka ZANTAC) IV 50 | Given | 11/11/19 | 50 mg | | | | mg 50 mg, intravenous, EVERY 8 | | 09 3:30 | | | | | HOURS, First dose on Wed11/06/08 | | PM PDT | | | | | at 2030, Until Discontinued | | | | | | + +-------+ +-------+---+---+ +-------+ +-------+---+---+ | Given | 11/11/19 | 50 mg | | | | | 09 6:00 | | | | | | AM PDT | | | | +-------+ +-------+---+---+ | Given | 11/10/19 | 50 mg | | | | | 09 10:00 | | | | | | PM PDT | | | | +-------+ +-------+---+---+ +---+---+ | | | +---+---+ + +-------+ + +---+---+ | senna-docusate (aka BRANDIE S) | Given | 12/02/19 | 1 tablet | | | | 8.6-50 mg 1 Tab 1 tablet, oral, | | 09 9:00 | | | | | TWICE DAILY, First dose on Wed | | AM PDT | | | | | 11/11/08 at 0900, Until | | | | | | | Discontinued | | | | | | + +-------+ + +---+---+ +-------+ + +---+---+ | Given | 12/01/19 | 1 tablet | | | | | 09 9:00 | | | | | | PM PDT | | | | +-------+ + +---+---+ | Given | 12/01/19 | 1 tablet | | | | | 09 9:00 | | | | | | AM PDT | | | | +-------+ + +---+---+ +---+---+ | | | +---+---+ + +-------+ +-------+---+---+ | simvastatin (aka ZOCOR) tablet | Given | 12/04/19 | 10 mg | | | | 10 mg 10 mg, oral, EVERY | | 09 9:00 | | | | | EVENING, First dose on Wed11/06/08 | | PM PDT | | | | | at 2130, Until Discontinued | | | | | | + +-------+ +-------+---+---+ +-------+ +-------+---+---+ | Given | 12/03/19 | 10 mg | | | | | 09 9:00 | | | | | | PM PDT | | | | +-------+ +-------+---+---+ | Given | 12/02/19 | 10 mg | | | | | 09 10:00 | | | | | | PM PDT | | | | +-------+ +-------+---+---+ +---+---+ | | | +---+---+ + +-------+ +--------+---+---+ | warfarin (aka COUMADIN) tablet | Given | 12/03/19 | 2.5 mg | | | | 2.5 mg 2.5 mg, oral, EVERY | | 09 9:00 | | | | | EVENING, First dose on Sun | | PM PDT | | | | | 12/02/08 at 2100, Until | | | | | | | Discontinued | | | | | | + +-------+ +--------+---+---+ +---+---+ | | | +---+---+ + +-------+ +------+---+---+ | warfarin (aka COUMADIN) tablet | Given | 12/02/19 | 5 mg | | | | 5 mg 5 mg, oral, EVERY EVENING, | | 09 10:00 | | | | | First dose on Loraine 11/29/08 at | | PM PDT | | | | | 2100, Until Discontinued | | | | | | + +-------+ +------+---+---+ +-------+ +------+---+---+ | Given | 12/01/19 | 5 mg | | | | | 09 9:00 | | | | | | PM PDT | | | | +-------+ +------+---+---+ | Given | 11/30/19 | 5 mg | | | | | 09 8:40 | | | | | | PM PDT | | | | +-------+ +------+---+---+ +---+---+ | | | +---+---+ + +-------+ +------+---+---+ | warfarin (aka COUMADIN) tablet | Given | 12/04/19 | 5 mg | | | | 5 mg 5 mg, oral, EVERY EVENING, | | 09 9:00 | | | | | First dose on 12/03/08 at | | PM PDT | | | | | 2100, Until Discontinued | | | | | | + +-------+ +------+---+---+ +---+---+ | | | +---+---+ documented in this encounter
--- OUTSIDE RECORDS SUMMARY | ~2018-07-29 | XMS | Encounter Summary ---
Demographics + + + | Address | [address] | | | [place] [address] | + + + | Home Phone | | + + + | Preferred Language | Unknown | + + + | Marital Status | Single | + + + | Anabaptist Affiliation | PRO | + + + | Race | White | + + + | Ethnic Group | Not or | + + + Author + + + | Author | [facility] | + + + | Organization | [facility] | + + + | Address | Unknown | + + + | Phone | Unavailable | + + + Support + + +---------+ + | Name | Relationship | Address | Phone | + + +---------+ + | Isidra Wilson | ECON | Unknown | | + + +---------+ + Care Team Providers + +------+ + | Care Physical Instructor Name | Role | Phone | + +------+ + | No Pcp Per Patient | PCP | Unavailable | + +------+ + Reason for Visit + + + | Reason | Comments | + + + | Postoperative visit | Split-thickness skin graft to open fasciotomy, left forearm on | | | 11/26/08 | + + + Encounter Details +--------+---------+ + + + | Date | Type | Department | Care Team | Description | +--------+---------+ + + + | 12/12/ | Office | Vascular Surgery | Melvin Daniels MD | Embolism (HCC) | | 2008 | Visit | at [facility] 2nd Floor | | (Primary Dx) | | | | [address] | | | | | | [facility] | | | | | | Mailcode: [id number] | | | | | | Physicians [place] | | | | | | [place], [place] | | | | | | [address] | | | | | | [phone] | | | +--------+---------+ + + + [...] documented as of this encounter Progress Notes Melvin Daniels MD - 12/12/2008 3:41 PM PDTBack for followup of multiple right finger amps. Minimal pain. No drainage. No fever. Forearm and palm incisions well healed - sutures removed today. 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 All sutures left in. 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 It is dry. The ulnar area skin graft is 100% healed. Plan to see her back in 3 weeks to assess the healing of the fingers/thumb. 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
--- OUTSIDE RECORDS SUMMARY | ~2018-07-29 | XMS | Encounter Summary ---
Demographics + + + | Address | [address] | | | [place] [address] | + + + | Home Phone | | + + + | Preferred Language | Unknown | + + + | Marital Status | | + + + | Protestant Affiliation | Unknown | + + + | Race | Unknown | + + + | Ethnic Group | Unknown | + + + Author + + + | Author | [facility] | + + + | Organization | [facility] | + + + | Address | Unknown | + + + | Phone | Unavailable | + + + Support + + +---------+ + | Name | Relationship | Address | Phone | + + +---------+ + | Isidra Delgado | ECON | Unknown | | + + +---------+ + Care Team Providers + +------+ + | Care Glass Setter Name | Role | Phone | + +------+ + | Kj Austin MD | PCP | | + +------+ + Encounter Details +--------+ + + + + | Date | Type | Department | Care Team | Description | +--------+ + + + + | 05/27/ | Documentati | [facility] | Norberto Sullivan MD | | | 2019 | on Only | [facility] | [address] | | | | | [address] | [place], [place] | | | | | [place], [place] | [address] | | | | | [address] | | | | | | [phone] | | | +--------+ + + + + Social History + +-------+ +--------+------+ | Tobacco Use | Types | Packs/Day | Years | Date | | | | | Used | | + +-------+ +--------+------+ | Never Smoker | | | | | + +-------+ +--------+------+ + +---+---+---+ | Smokeless Tobacco: | | | | | Never Used | | | | + +---+---+---+ + + + | Sex Assigned at | Date Recorded | | | | + + + | Not on file | | + + + as of this encounter Kate Rogers - 05/27/2018 9:44 AM PDTReferral recordsin this encounter Plan of Treatment +--------+---------+ + + + | Date | Type | Specialty | Care Team | Description | +--------+---------+ + + + | 08/10/ | Office | Neurosurgery | Minh Horne DO | | | 2019 | Visit | | [address] | | | | | | [place] | | | | | | [id number] | | | | | | | | +--------+---------+ + + + as of this encounter Visit Diagnoses Not on filein this encounter"
--- OUTSIDE RECORDS SUMMARY | ~2018-07-29 | XMS | Encounter Summary ---
Demographics + + + | Address | [address] | | | [place] [address] | + + + | Home Phone | | + + + | Preferred Language | Unknown | + + + | Marital Status | Single | + + + | Yazidi Affiliation | PRO | + + + | Race | White | + + + | Ethnic Group | Not or | + + + Author + + + | Author | [facility] | + + + | Organization | [facility] | + + + | Address | Unknown | + + + | Phone | Unavailable | + + + Support + + +---------+ + | Name | Relationship | Address | Phone | + + +---------+ + | Isidra Wilson | ECON | Unknown | | + + +---------+ + Care Team Providers + +------+ + | Care Agriculture Teacher Name | Role | Phone | + [...] | | 2008 | Visit | at [facility] 2nd Floor | | (Primary Dx) | | | | [address] | | | | | | [facility] | | | | | | Mailcode: OP11 | | | | | | Physicians [place] | | | | | | [place], [place] | | | | | | [address] | | | | | | [phone] | | | +--------+---------+ + + + [...]
--- OUTSIDE RECORDS SUMMARY | ~2018-07-29 | XMS | Encounter Summary ---
Demographics + + + | Address | [address] | | | [place] [address] | + + + | Home Phone | | + + + | Preferred Language | Unknown | + + + | Marital Status | Single | + + + | Druze Affiliation | PRO | + + + | Race | White | + + + | Ethnic Group | Not or | + + + Author + + + | Author | [facility] | + + + | Organization | [facility] | + + + | Address | Unknown | + + + | Phone | Unavailable | + + + Support + + +---------+ + | Name | Relationship | Address | Phone | + + +---------+ + | Isidra Wilson | ECON | Unknown | | + + +---------+ + Care Team Providers + +------+ + | Care Support Analyst Name | Role | Phone | + +------+ + | Jim Bergman MD | PCP | | + +------+ + Reason for Visit + + + | Reason | Comments | + + + | Pre-op evaluation | | + + + Encounter Details +--------+ + + + + | Date | Type | Department | Care Team | Description | +--------+ + + + + | 08/08/ | Telephone-S | Preoperative | Phone, [facility] | Pre-op evaluation | | 2009 | cheduled | Medicine Clinic at | [facility] | | | | | MPV Floor Day | Road [place], [place] | | | | | Stay [address] | [address] | | | | | [facility] | | | | | | Mailcode: [id number] | | | | | | [place] | | | | | | [address] [facility] [place] | | | | | | [address] | | | | | | [phone] | | | +--------+ + + + [...]
--- OUTSIDE RECORDS SUMMARY | ~2018-07-29 | XMS | Encounter Summary ---
Demographics + + + | Address | [address] | | | [place] [address] | + + + | Home Phone | | + + + | Preferred Language | Unknown | + + + | Marital Status | Single | + + + | Rastafari Affiliation | PRO | + + + | Race | White | + + + | Ethnic Group | Not or | + + + Author + + + | Author | [facility] | + + + | Organization | [facility] | + + + | Address | Unknown | + + + | Phone | Unavailable | + + + Support + + +---------+ + | Name | Relationship | Address | Phone | + + +---------+ + | Isidra Wilson | ECON | Unknown | | + + +---------+ + Care Team Providers + +------+ + | Care Scale Operator Name | Role | Phone | + +------+ + | Jim Bergman MD | PCP | | + +------+ + Reason for Visit +--------+ + | Reason | Comments | +--------+ + | Other | medication | +--------+ + Encounter Details +--------+ + + + + | Date | Type | Department | Care Team | Description | +--------+ + + + + | 04/12/ | Telephone | Vascular Surgery | Rodriguez Davalos, | Other (medication) | | 2009 | | at [facility] 2nd Floor | [address] | | | | | [address] | [facility] | | | | | [facility] | [place], [place] | | | | | Mailcode: MACK | [address] | | | | | Physicians [place] | [phone] | | | | | [place], [place] | | | | | | [address] | | | | | | [phone] | | | +--------+ + + + [...]
--- OUTSIDE RECORDS SUMMARY | ~2018-07-29 | XMS | Clinical Summary ---
Demographics + + + | Address | [address] | | | [place] [address] | + + + | Home Phone | | + + + | Preferred Language | Unknown | + + + | Marital Status | | + + + | Jew Affiliation | Unknown | + + + | Race | Unknown | + + + | Ethnic Group | Unknown | + + + Author + + + | Author | [facility] | + + + | Organization | [facility] | + + + | Address | Unknown | + + + | Phone | Unavailable | + + + Support + + +---------+ + | Name | Relationship | Address | Phone | + + +---------+ + | Isidra Delgado | ECON | Unknown | | + + +---------+ + Care Team Providers + +------+ + | Care Banana Carrier Name | Role | Phone | + +------+ + | Kj Austin MD | PP | | + +------+ + Allergies + + + + + + | Active Allergy | Reactions | Severity | Noted | Comments | | | | | Date | | + + + + + + | Ibuprofen | Hives | High | 12/12/19 | | | | | | 18 | | + + + + + + Current Medications + + +--------+---------+------+------+-------+ | Prescription | Sig. | Disp. | Refills | Star | End | Statu | | | | | | t | Date | s | | | | | | Date | | | + + +--------+---------+------+------+-------+ | atorvastatin | Take 20 mg by mouth | | | | | Activ | | (LIPITOR) 20 MG | nightly. | | | | | e | | tablet | | | | | | | + + +--------+---------+------+------+-------+ | insulin glargine | Inject 12 Units into | | | | | Activ | | (LANTUS) 100 UNIT/ML | the skin nightly. | | | | | e | | injection | | | | | | | + + +--------+---------+------+------+-------+ | metFORMIN | Take 1,000 mg by | | | | | Activ | | (GLUCOPHAGE) 1000 MG | mouth 2 (two) times | | | | | e | | tablet | daily with meals. | | | | | | + + +--------+---------+------+------+-------+ | ciprofloxacin | Take 1 tablet by | 12 | 0 | 11/29 | | Activ | | (CIPRO) 500 MG | mouth Two times | tablet | | 20 | | e | | tabletIndications: | daily-Quinalones. | | | 18 | | | | Acute Abdominal | | | | | | | | Condition | | | | | | | + + +--------+---------+------+------+-------+ | NIFEdipine (ADALAT | Take 1 tablet by | 30 | 0 | 10/ | 11/29 | Activ | | CC) 30 MG 24 hr | mouth daily. | tablet | | 10/18 | 10/18 | e | | tablet | | | | 18 | 19 | | + + +--------+---------+------+------+-------+ Active Problems + + + | Problem | Noted Date | + + + | Hypertensive emergency without congestive heart failure | 12/12/2017 | + + + | DAKSHA (acute kidney injury) (HCC) | 12/12/2017 | + + + | Uncontrolled type 2 diabetes mellitus with hyperglycemia (HCC) | 12/12/2017 | + + + | Other hydronephrosis | 12/12/2017 | + + + | Hydroureter | 12/12/2017 | + + + Encounters +--------+ + + + + | Date | Type | Specialty | Care Team | Description | +--------+ + + + + | 07/26/ | Documentati | | Minh Horne DO | | | 2019 | on Only | | | | +--------+ + + + + | 07/07/ | Documentati | | Preethi Jara CMA | Other (Referral | | 2019 | on Only | | | update from [place] | | | | | | [facility] | | | | | | [facility] | | | | | | [facility] 07/06/18) | +--------+ + + + + | 05/27/ | Documentati | | Norberto Sullivan MD | | | 2019 | on Only | | | | +--------+ + + + + from Last 3 Months Social History + +-------+ +--------+------+ | Tobacco [...] on file | | + + + Last Filed Vital Signs + + + + | Vital Sign | Reading | Time Taken | + + + + | Blood Pressure | 159/77 | 12/15/2017 10:59 AM PDT | + + + + | Pulse | 78 | 12/15/2017 10:59 AM PDT | + + + + | Temperature | 36.8 C (98.2 F) | 12/15/2017 10:59 AM PDT | + + + + | Respiratory Rate | 18 | 12/15/2017 10:59 AM PDT | + + + + | Oxygen Saturation | 96% | 12/15/2017 10:59 AM PDT | + + + + | Inhaled Oxygen | - | - | | Concentration | | | + + + + | Weight | 65.5 kg (144 lb 4.8 | 12/13/2017 2:43 AM PDT | | | oz) | | + + + + | Height | 142.2 cm (4' 8") | 12/11/2017 11:25 PM PDT | + + + + | Body Mass Index | 32.35 | 12/13/2017 2:43 AM PDT | + + + + Plan of Treatment +--------+---------+ + + + | Date | Type | Specialty | Care Team | Description | +--------+---------+ + + + | 08/10/ | Office | | Minh Horne DO | | | 2019 | Visit | | [address] | | | | | | [place] | | | | | | [address] | | | | | | | | +--------+---------+ + + + + + + + + | Health Maintenance | Due Date | Last Done | Comments | + + + + + | Diabetic Eye Exam | | | | | | 4 | | | + + + + + | Diabetic Foot Exam | | | | | | 4 | | | + + + + + | Hemoglobin A1c | | | | | | 4 | | | + + + + + | Microalbumin | | | | | Screening | 4 | | | + + + + + | Vaccine: | | | | | Dtap/Tdap/Td (1 - | 3 | | | | Tdap) | | | | + + + + + | Vaccine: | | | | | Pneumococcal 19-64 | 3 | | | | (PPSV23 only) Medium | | | | | Risk (1 of 1 - | | | | | PPSV23) | | | | + + + + + | Cervical Cancer | | | | | Screening (Pap) | 4 | | | + + + + + | Breast Cancer | | | | | Screening | 4 | | | | (Mammogram) | | | | + + + + + | Colon Cancer | | | | | Screening | 4 | | | | (Colonoscopy) | | | | + + + + + | Vaccine: Zoster (1 | | | | | of 2) | 4 | | | + + + + + | Vaccine: Influenza | | | | | (Season Ended) | 9 | | | + + + + + Results Not on filefrom Last 3 Months Insurance + +--------+ +------+-------+ + | Payer | Benefi | Subscriber | Type | Phone | Address | | | t Plan | ID | | | | | | / | | | | | | | Group | | | | | + +--------+ +------+-------+ + | MEDICAID | [place] | [id number] | | | [address] | | | [place] | | | | [place] | | | [place] | | | | [address] | | | COMMUNICATIONS CLERK | | | | | + +--------+ +------+-------+ + + +--------+ +--------+ + + | Guarantor Name | Accoun | Relation to | Date | Phone | Billing Address | | | t Type | Patient | of | | | | | | | | | | + +--------+ +--------+ + + | ZAHIDA BRAMBILA | Person | Self [birth year] | Home: | [address] | | [place] | al/Fam | | [phone] [place] | | | [place] | | | [phone] | [address] | + +--------+ +--------+ + +
--- OUTSIDE RECORDS SUMMARY | ~2018-07-29 | XMS | Encounter Summary ---
Demographics + + + | Address | [address] | | | [place] [address] | + + + | Home Phone [...] Author + + + | Author | [facility] | + + + | Organization | [facility] | + + + | Address | Unknown | + + + | Phone | Unavailable | + + + Support + + +---------+ + | Name | Relationship | Address | Phone | + + +---------+ + | Isidra Wilson | ECON | Unknown | | + + +---------+ + Care Team Providers + +------+ + | Care Hygiene Teacher Name | Role | Phone | + +------+ + | Jim Bergman MD | PCP | | + +------+ + Reason for Visit +--------+ + | Reason | Comments | +--------+ + | Other | surgery cancellation per pt. | +--------+ + Encounter Details +--------+ + + + + | Date | Type | Department | Care Team | Description | +--------+ + + + + | 08/12/ | [facility]phone [facility] | Lauren Haley | Other (surgery | | 2009 | | [facility] | MD [place] | cancellation per | | | | Pavilion [address] | | pt[address] | | | | [address] | | | | | | [address] [place] | | | | | | [facility], | | | | | | [place] [address] | | | | | | [phone] | | | +--------+ + + + [...]
--- OUTSIDE RECORDS SUMMARY | ~2018-07-29 | XMS | Encounter Summary ---
Demographics + + + | Address | [address] | | | [place] [address] | + + + | Home Phone | | + + + | Preferred Language | Unknown | + + + | Marital Status | Single | + + + | Muslim Affiliation | PRO | + + + | Race | White | + + + | Ethnic Group | Not or | + + + Author + + + | Author | [facility] | + + + | Organization | [facility] | + + + | Address | Unknown | + + + | Phone | Unavailable | + + + Support + + +---------+ + | Name | Relationship | Address | Phone | + + +---------+ + | Isidra Wilson | ECON | Unknown | | + + +---------+ + Care Team Providers + +------+ + | Care Day Habilitation Specialist Name | Role | Phone | + [...] | | 2008 | Visit | at [facility] 2nd Floor | | (Primary Dx) | | | | [address] | | | | | | [facility] | | | | | | Mailcode: OP11 | | | | | | Physicians [place] | | | | | | [place], [place] | | | | | | [address] | | | | | | [phone] | | | +--------+---------+ + + + [...]
--- OUTSIDE RECORDS SUMMARY | ~2018-07-29 | XMS | Encounter Summary ---
Demographics + + + | Address | [address] | | | [place] [address] | + + + | Home Phone | | + + + | Preferred Language | Unknown | + + + | Marital Status | Single | + + + | Synagogue Affiliation | PRO | + + + | Race | White | + + + | Ethnic Group | Not or | + + + Author + + + | Author | [facility] | + + + | Organization | [facility] | + + + | Address | Unknown | + + + | Phone | Unavailable | + + + Support + + +---------+ + | Name | Relationship | Address | Phone | + + +---------+ + | Isidra Wilson | ECON | Unknown | | + + +---------+ + Care Team Providers + +------+ + | Care Salicylic Acid Blender Name | Role | Phone | + +------+ + | Jim Bergman MD | PCP | | + +------+ + Reason for Visit +--------+ + | Reason | Comments | +--------+ + | Other | Dr Haley | +--------+ + Encounter Details +--------+ + + + + | Date | Type | Department | Care Team | Description | +--------+ + + + + | 08/07/ | Telephone | [facility] | Lauren Haley | Other (Dr Haley) | | 2009 | | [facility] | MD [place] | | | | | [place] [address] | | | | | | [address] | | | | | | [address] | | | | | | [place], | | | | | | [place] [address] | | | | | | [phone] | | | +--------+ + + + [...]
--- OUTSIDE RECORDS SUMMARY | ~2018-07-29 | XMS | Encounter Summary ---
Demographics + + + | Address | [address] | | | [place] [address] | + + + | Home Phone | | + + + | Preferred Language | Unknown | + + + | Marital Status | Single | + + + | Buddhism Affiliation | PRO | + + + | Race | White | + + + | Ethnic Group | Not or | + + + Author + + + | Author | [facility] | + + + | Organization | [facility] | + + + | Address | Unknown | + + + | Phone | Unavailable | + + + Support + + +---------+ + | Name | Relationship | Address | Phone | + + +---------+ + | Isidra Wilson | ECON | Unknown | | + + +---------+ + Care Team Providers + +------+ + | Care Seismic Prospecting Observer Name | Role | Phone | + [...] (medication) | | 2009 | | at [facility] 2nd Floor | [address] | | | | | [address] | [facility] | | | | | [facility] | [place], [place] | | | | | Mailcode: MACK | [address] | | | | | Physicians [place] | [phone] | | | | | [place], [place] | | | | | | [address] | | | | | | [phone] | | | +--------+ + + + [...]
--- OUTSIDE RECORDS SUMMARY | ~2018-07-29 | XMS | Encounter Summary ---
Demographics + + + | Address | [address] | | | [place] [address] | + + + | Home Phone | | + + + | Preferred Language | Unknown | + + + | Marital Status | Single | + + + | Jewish Affiliation | PRO | + + + | Race | White | + + + | Ethnic Group | Not or | + + + Author + + + | Author | [facility] | + + + | Organization | [facility] | + + + | Address | Unknown | + + + | Phone | Unavailable | + + + Support + + +---------+ + | Name | Relationship | Address | Phone | + + +---------+ + | Isidra Wilson | ECON | Unknown | | + + +---------+ + Care Team Providers + +------+ + | Care Social Work Supervisor Name | Role | Phone | + +------+ + | Jim Bergman MD | PCP | | + +------+ + Reason for Visit + + + | Reason | Comments | + + + | New patient | | | consultation | | + + + | Other | Uterine "STUMP" | + + + Benefits Check (Routine) +--------+--------+ + + + + | Status | Reason | Specialty | Diagnoses / | Referred By | Referred To | | | | | Procedures | Contact | Contact | +--------+--------+ + + + + | Closed | | Obstetrics & | Diagnoses | [employer]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 | | | +--------+--------+ + + + + Encounter Details +--------+---------+ + + + | Date | Type | Department | Care Team | Description | +--------+---------+ + + + | 05/ | Office | [facility] | Lauren Haley | Screening (Primary | | 2009 | Visit | [facility] | MD Chuyita | Dx) | | | | [place] [address] | | | | | | [address] | | | | | | [address] Michael Cooley | | | | | | [place], | | | | | | [place] [address] | | | | | | [phone] | | | +--------+---------+ + + + [...] + documented in this encounter Progress Notes Shelby Meza MD - 07/05/2009 3:41 PM PDTFormatting of this note might be different fro m the original. 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 Ms. Mcbride initially presented to [facility] as a transfer in 11/18 08. 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 She received TPA to try to release the thrombi. At that time she bega n to have very heavy vaginal bleeding, dropping her hematocrit critically and requiring mult iple transfusions. She has been of anti-coagulation since 04/10. She has stopped her Provera. She reports her fasting blood sugars are in the 200s. Can go up flights of stairs without exertion. Walks daily. 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 GLYBURIDE 5 MG TAB Take 1 Tab by mouth two times daily. LISINOPRIL 20 MG TAB Take 1 Tab by mouth once daily. LOVASTATIN 20 MG TAB Take 1 Tab by mouth once daily in the evening. Administer with evening meal. METFORMIN 850 MG TAB Take 1 Tab by mouth three times daily. ALLERGIES: NKDA FAMILY HISTORY: Patient has 17 siblings, but does not know them. Grew up in foster care. Does not know her father. Mother in her 50s, unknown cause. Maternal grandmother also in her 50s, un known cause. Patient has no knowledge of cancers in her family. SOCIAL HISTORY: Occupation: does not work outside the home Patient currently lives with: alone Activity level: exercises daily HABITS: Tobacco: none ETOH: none Illicit substances: none REVIEW OF SYSTEMS: Constitutional: occasional fevers, chills, sweats HEENT: negative Cardiovascular: negative Respiratory: negative Gastrointestinal: negative Genitourinary: negative; occasional hot flashes, no vaginal dryness or itching Musculoskeletal: numbness and tingling in hands after sleeping Integumentary: yeast infections under breasts Neurologic: negative Psychiatric: negative PHYSICAL EXAM: Ht 143.5 cm (4' 8.5")( < 3 %ile), Wt 73.528 kg (162 lbs 1.6 oz)( < 3 %ile), BP 134/86, Puls e 93, Temperature 36.8 C (98.2 F), Temperature source Oral, Last menstrual period 2009, SpO2 99%. General: Pleasant. HEENT:normocephalic, atraumatic. Sclera anicteric, posterior oropharynx clear. Several miss ing teeth. States she is getting new dentures soon. Cardiovascular: RRR, no murmers, gallops, or rubs Respiratory: CTA bilateral anterior and posterior barkley Breasts: symmetric in size and appearance bilaterally, no masses or skin retractions. No ni pple discharge, no axillary adenopathy. GI: abdomen obese, soft, and nontender to palpation throughout. The bowel sounds are normoa ctive. No surgical scars are noted, no masses or HSM appreciated though obese. No evidence o f hernia. Extremities: normal ROM in the bilateral upper and lower extremities, no LE edema bilateral ly. Post-surgical scarring on left forearm with skin grafts. Skin: Erythema in intertrigenal areas of both breasts with satellite lesions Lymphatics: no cervical, supraclavicular, or inguinal adenopathy : Cervix is parous. Pap collected and sent. RADIOLOGIC AND LABORATORY DATA: US PORTABLE TRANSVAGINAL: STUDY: TRANSABDOMINAL AND TRANSVAGINAL PELVIC ULTRASOUND 11/10/08 COMPARISONS: None HISTORY: Menorrhagia, possible prolapsed fibroid TECHNIQUE: Transabdominal followed by transvaginal ultrasound was performed to fully evaluate the pelv ic structures. FINDINGS: Interpretation of this study is limited by patient scanning characteristics. A Jefferson cath eter is present within the urinary bladder. The uterus measures approximately 11.0 x 6.4 x 6.8 cm. Within the uterine fundus, there is a hypoechoic 3.3 x 5.2 x 6.1 cm fundal fibroid. There is a large heterogeneously echoic fibroid within the lower uterine segment which me asures 7.8 x 6.7 x 7.0 cm. There appears to be normal cervix abutting the fibroid. This fi broid obscures visualization of the remainder of the uterus and adnexa on the transvaginal i mages. IMPRESSION: 1. Technically limited study due to patient scanning characteristics. 2. Fibroid uterus, with a large lower uterine segment fibroid as above and smaller fundal fibroid. Component Latest Ref Rng 11/29/2008 FACTOR V LEIDEN NO MUTATION . . . INTRODUCTION FOR DNA As per your request, DNA has been analyzed for the presence of the . . . FOOTER FOR DNA References: . . . FINAL SIGNATURE DNA Reviewed and electronically signed by Myron Rothman MD, PhD. SPECIMEN TYPE SUBMITTED Whole Blood REASON FOR REFERRAL 903.3 PROTHROMBIN GENE MUTATION No Units NO MUTATION . . . ANTICARDIOLIPIN, IGG < 20 < 9 ANTICARDIOLIPIN, IGM < 20 < 9 ANTICARDIOLIPIN, IGA < 15 < 9 BOB SCREEN ON HEP 2, SERUM Negative Negative C-REACTIVE PROTEIN < 0.6 < 0.5 PROTEIN S ANTIGEN, FREE 55 - 123 % 113 PROTEIN C ACTIVITY 0.82 - 1.54 U/mL 0.96 Component Value Range & Units Status 11/07 VENTRICULAR RATE 86 BPM Fin ATRIAL RATE 86 BPM Fin P-R INTERVAL 128 ms Fin QRS DURATION 86 ms Fin QT 374 ms Fin QTC 447 ms Fin P AXIS 60 degrees Fin R AXIS 46 degrees Fin T AXIS -42 degrees Fin EKG DIAGNOSIS Fin Normal sinus rhythm Nonspecific T wave abnormality Abnormal ECG 11/07: TTE: LVEF 60-65%. Normal left ventricular function. No visible abnormalities.05/08/09 Outside labs: CMP normal. Glucose 238. Creatinine 0.8.Total chol: 276. HDL 48. LDL 165. VLDL 63. Trig 315 . HgA1c 10. ASSESSMENT: 53 yo with vaginal myomectomy of prolapsed fibroid in 11/07; pathology demonstrating S TUMP. PLAN: A long discussion was held with Kelly and her supportive friend. She strongly desires avoi ding an abdominal incision, but she understands the recommendation for surgery. She would l sushila to proceed with total vaginal hysterectomy. We also discussed ovarian preservation. She would like to avoid future surgery so requests BSO. We will proceed with this if it is agustin tirado at the time of TVH. PARQ held and consents signed. We will attempt to schedule surgery after 07/17 as she has a dental appointment. She will see her PCP in the next couple of weeks and will discuss upcoming surgery. Shelby Meza MD I saw and evaluated the patient. I agree with the findings and the plan of care as evelyn enamorado in the resident s note. I explained to the patient and her friend/neighbor who is with her today that the reason I recommend a hysterectomy is that the tumor she had removed from the uterus could be a cancer or could have a residual cancerous area that was left behind. Ideally I would recommend a minimally invasive approach and consider removal of the ovaries and tubes as well. However, the patient would like to avoid any abdominal incisions if possible. We discussed the poss ibility of a total vaginal hysterectomy which she would be agreeable to. I said that I woul d try to remove her tubes and ovaries which she would agree to as it would reduce her risk o f ovarian cancer in the future. I explained that removal can sometimes not be fully possibl e vaginally depending on the anatomy. I also explained that if we encounter any bleeding or complication in a vaginal approach, it is possible to maintain her health and life, we woul d need to do an abdominal incision. I told her I would try to avoid this unless absolutely necessary and if it is necessary I will try to use her section scar if possible. S he agreed and expressed understanding. We discussed all potential operative complications. A full PARQ discussion was had. I explained that this surgery requires a hospital stay and what to expect for post-op recov yeni. The patient agreed to sign the consent form today. LAUREN HALEY MD [facility] [address] [place] [phone] documented in this en counter Plan of Treatment Not on filedocumented as of this encounter Procedures + +--------+ + + + | Procedure Name | Priori | Date/Time | Associated Diagnosis | Comments | | | ty | | | | + +--------+ + + + | CHIEF RADIOLOGY CYTOLOGY (PAP) | Routin | 07/05/2009 | Screening | Results for this | | | e | | | procedure are in the | | | | | | results section. | + +--------+ + + + documented in this encounter Results CHIEF RADIOLOGY CYTOLOGY (PAP) (07/05/2009) + + + + + + | Component | Value | Ref Range | Performed | Pathologist | | | | | At | Signature | + + + + + + | CHIEF RADIOLOGY | THIS IS AN HPV | | [facility] | | | CYTOLOGY | ADDENDUM REPORT SOURCE | | DEPARTMENT | | | | OF SPECIMEN: | | OF | | | | CervicalReason for | | PATHOLOGY | | | | Examination: Screenin | | | | | | g Pap (Low Risk)CLINICAL | | | | | | HISTORY: LMP: [id number], | | | | | | OtherPrevious Diagnosis | | | | | | and/or Therapy: IUD: | | | | | | N | | | | | | Interpretation:Atypical | | | | | | squamous cells of | | | | | | undetermined | | | | | | significance | | | | | | (ASC-US). | | | | | | Adequacy:Satisfactory | | | | | | for | | | | | | evaluation. Transform | | | | | | ation zone | | | | | | present. | | | | | | Comments:Endometrial | | | | | | cells | | | | | | present. Endometrial | | | | | | cells after the age of | | | | | | 40,particularly out of | | | | | | phase or after | | | | | | menopause, may be | | | | | | associated with | | | | | | benignendometrium, | | | | | | hormonal alterations and | | | | | | less commonly | | | | | | withendometrial/uterine | | | | | | abnormalities. Clinic | | | | | | al correlation is | | | | | | recommended. HPV | | | | | | Results:Negative for | | | | | | high-risk HPV. | | | | | | HPV Comments:Test | | | | | | performed by [facility] | | | | | | [facility], which is | | | | | | authorized under | | | | | | ClinicalLaboratory | | | | | | Improvement Amendments | | | | | | (CLIA) to perform | | | | | | high-complexitytesting. | | | | | | The high-risk HPV test | | | | | | detects HPV genotypes | | | | | | 16, 18, 31, 33, 35,39, | | | | | | 45, 51, 52, 56, 58, 59, | | | | | | and 68, which are | | | | | | associated with | | | | | | cervicalcancer and its | | | | | | precursor | | | | | | lesions. However, | | | | | | cross-reactions with | | | | | | othergenotypes may | | | | | | occur. Sensitivity | | | | | | may be affected by | | | | | | cellularity ofspecimen | | | | | | and results should be | | | | | | correlated with | | | | | | cytologic and | | | | | | histologicfindings. A | | | | | | lthough HPV testing has | | | | | | been approved by the | | | | | | U.S. Food and | | | | | | DrugAdministration | | | | | | (FDA), it has not | | | | | | specifically been | | | | | | approved for use | | | | | | inSurePath liquid based | | | | | | preparations. Nonethe | | | | | | less, the | | | | | | performancecharacteristi | | | | | | cs for this test were | | | | | | validated by our CLIA | | | | | | approvedlaboratory and | | | | | | [employer] ([employer] | | | | | | [employer] Note: | | | | | | Gynecological cytology | | | | | | is a screening test that | | | | | | is subject toboth false | | | | | | positive and false | | | | | | negative results. For | | | | | | that reason, thetest is | | | | | | most reliable when a | | | | | | satisfactory sample is | | | | | | obtained on a | | | | | | regular,repetitive | | | | | | basis.If requested, HPV | | | | | | results will be reported | | | | | | in an addendum on all | | | | | | PAPsmears.My electronic | | | | | | [...] | | | | | | Diagnostician: Balbina | | | | | | Sharla | | | | | | CT(ASCP)Youth Agent | | | | | | Electronically Signed | | | | | | 07/09/2009Rendering | | | | | | Diagnostician: Ko | | | | | | Garret Sheikh, | | | | | | Ph.DPathologistElectroni | | | | | | андрей Signed 07/19/2009 | | | | | | (A) | | | | + + + + + + + + | Specimen | + + | Brushing - Cervix | + + + + + + + | Performing | Address | City/State/Zipcode | Phone Number | | Organization | | | | + + + + + | [facility] | [address] | [place] [address] | | | PATHOLOGY | [address] | | | + + + + + documented in this encounter Visit Diagnoses + + | Diagnosis | + + | Screening - Primary Screening for unspecified condition | + + documented in this encounter
--- OUTSIDE RECORDS SUMMARY | ~2018-07-29 | XMS | Encounter Summary ---
Demographics + + + | Address | [address] | | | [place] [address] | + + + | Home Phone | | + + + | Preferred Language | Unknown | + + + | Marital Status | Single | + + + | Evangelical Affiliation | PRO | + + + | Race | White | + + + | Ethnic Group | Not or | + + + Author + + + | Author | [facility] | + + + | Organization | [facility] | + + + | Address | Unknown | + + + | Phone | Unavailable | + + + Support + + +---------+ + | Name | Relationship | Address | Phone | + + +---------+ + | Isidra Wilson | ECON | Unknown | | + + +---------+ + Care Team Providers + +------+ + | Care Quantitative Manager Name | Role | Phone | + +------+ + | Jim Bergman MD | PCP | | + +------+ + Reason for Visit + + + | Reason | Comments | + + + | Follow-up in | Open fasciotomy wound, left forearm on 11/27/08 | | outpatient clinic | | + + + Encounter Details +--------+---------+ + + + | Date | Type | Department | Care Team | Description | +--------+---------+ + + + | 01/02/ | Office | Vascular Surgery | Melvin Daniels MD | Amputation | | 2008 | Visit | at [facility] 2nd Floor | | Finger-Complicated | | | | [address] | | (Primary Dx); | | | | [address] | | Embolism (HCC) | | | | Mailcode: [id number] | | | | | | Physicians [place] | | | | | | [place], [place] | | | | | | [address] | | | | | | [phone] | | | +--------+---------+ + + + [...] encounter Progress Notes Melvin Daniels MD - 01/02/2009 3:44 PM PSTI saw and examined the patient. I agree with e findings and plan as documented in Dr. Nava's note. Samantha Alvarez MD - 01/02/2009 3:43 PM PSTHere for follow up of her multiple left hand finger amputations. She is here for suture removal. The scabs are starting to flake off. On exam The wrist is a little stiff, the finger amp sites are still covered with black eschar but a re smaller ASSESSMENT AND PLAN: The sutures don't look ready to come out. We'll see her back in one mo nth. She also need physical therapy for ROM for the hand. 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
--- OUTSIDE RECORDS SUMMARY | ~2018-07-29 | XMS | Encounter Summary ---
Demographics + + + | Address | [address] | | | [place] [address] | + + + | Home Phone | | + + + | Preferred Language | Unknown | + + + | Marital Status | Single | + + + | Caodaism Affiliation | PRO | + + + [...] Team Providers + +------+ + | Care Specialist Physician Name | Role | Phone | + +------+ + | Jim Bergman MD | PCP | | + +------+ + Reason for Visit + + + | Reason | Comments | + + + | Follow-up encounter | | + + + Encounter Details +--------+ + + + + | Date | Type | Department | Care Team | Description | +--------+ + + + + | 01/08/ | Telephone | [facility] | Delmis Jacob MD | Follow-up encounter | | 2009 | | Health Gynecology | | | | | | Residents [address] | | | | | | [address] | | | | | | Road Outpatient | | | | | | Clinic Building [address] | | | | | | Mailcode: [id number] | | | | | | [place], [place] | | | | | | [address] | | | | | | [phone] | | | +--------+ + + + [...]
--- OUTSIDE RECORDS SUMMARY | ~2018-07-29 | XMS | Encounter Summary ---
Demographics + + + | Address | [address] | | | [place] [address] | + + + | Home Phone | | + + + | Preferred Language | Unknown | + + + | Marital Status | Single | + + + | Anglican Affiliation | PRO | + + + | Race | White | + + + | Ethnic Group | Not or | + + + Author + + + | Author | [facility] | + + + | Organization | [facility] | + + + | Address | Unknown | + + + | Phone | Unavailable | + + + Support + + +---------+ + | Name | Relationship | Address | Phone | + + +---------+ + | Isidra Wilson | ECON | Unknown | | + + +---------+ + Care Team Providers + +------+ + | Care Physician Gynecologist Name | Role | Phone | + +------+ + | Jim Bergman MD | PCP | | + +------+ + Reason for Referral Consult to [place] (Routine) + +--------+ + + + + | Status | Reason | Specialty | Diagnoses / | Referred By | Referred To | | | | | Procedures | Contact | Contact | + +--------+ + + + + | Canceled | | Obstetrics & | Diagnoses | Sudha, | [employer] [facility]c | | | | Gynecology | Uterine | Lauren Boogie, | [facility] [address] | | | | | corpus | [address] | | | | | cancer (HCC) | [address] | [facility] | | | | | Procedures | [facility] | [address] | | | | | REQUEST TO | [place], [place] | Pavilion | | | | | SURGERY | [address] | [place], [place] | | | | | CONSTRUCTION REPRESENTATIVE | | [address] | | | | | [place] VAG | | Phone: | | | | | HYST,UTERUS | | [phone] | | | | | >[address] | | Fax: | | | | | TUBE/OVARY | | [phone] | + +--------+ + + + + Encounter Details +--------+ + + + + | Date | Type | Department | Care Team | Description | +--------+ + + + + | 07/19/ | Master Brewer | [facility] | Lauren Haley | Uterine corpus | | 2009 | | [facility] | MD Chuyita | cancer (HCC) | | | | [place] [address] | | (Primary Dx) | | | | [address] | | | | | | [address] | | | | | | [place], | | | | | | [place] [address] | | | | | | [phone] | | | +--------+ + + + [...] + | Diagnosis | + + | 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
--- OUTSIDE RECORDS SUMMARY | ~2018-07-29 | XMS | Encounter Summary ---
Demographics + + + | Address | [address] | | | [place] [address] | + + + | Home Phone [...] + + + | Author | [facility] | + + + | Organization | [facility] | + + + | Address | Unknown | + + + | Phone | Unavailable | + + + Support + + +---------+ + | Name | Relationship | Address | Phone | + + +---------+ + | Isidra Wilson | ECON | Unknown | | + + +---------+ + Care Team Providers + +------+ + | Care Deck Steward Name | Role | Phone | + [...] | [facility] [address] | EVENT ATTENDANT [address] | Encounter for | | | | [address] | [address] | Long-Term (Current) | | | | Physicians [place] | [place], [place] | Use of | | | | [address] | [address] | Anticoagulants | | | | Physicians [place] | [phone] | | | | | [place], [place] | | | | | | [address] | | | | | | [phone] | | | +--------+---------+ + + + [...] in this encounter Progress Notes Amber Segovia, EVENT ATTENDANT - 12/12/2008 2:42 PM PDTCC: Established patient [...] and Sat while she is here in [place] but th is may change when she returns home. Will be heading home and follow up with Dr Thong carlton Wednesday12.13.08 at 10 am at the [facility] ([phone]). documented in this en counter Plan of [...] [facility] | [address] | [place], [place] | | | [facility] | [address] | [address] | | | TESTS | | | | + + + + + | [facility] | [address] | [place], [place] | | | TESTS | [address] | [address] | | + + + + + documented in this encounter Visit Diagnoses + + | Diagnosis | + + | Embolism (HCC) Embolism and thrombosis of unspecified artery | + + | skilled nursing (current) use of anticoagulants Long-term (current) use of anticoagulants | + + documented in this encounter"
--- OUTSIDE RECORDS SUMMARY | ~2018-07-29 | XMS | Encounter Summary ---
Demographics + + + | Address | [address] | | | [place] [address] | + + + | Home Phone | | + + + | Preferred Language | Unknown | + + + | Marital Status | Single | + + + | Hinduism Affiliation | PRO | + + + | Race | White | + + + | Ethnic Group | Not or | + + + Author + + + | Author | [facility] | + + + | Organization | [facility] | + + + | Address | Unknown | + + + | Phone | Unavailable | + + + Support + + +---------+ + | Name | Relationship | Address | Phone | + + +---------+ + | Isidra Wilson | ECON | Unknown | | + + +---------+ + Care Team Providers + +------+ + | Care Firing Pin Gauger Name | Role | Phone | + [...] | +--------+ + + + + | 01/10/ | Telephone | [facility] | Lauren Haley | Follow-up encounter | | 2008 | | [facility] | MD Chuyita | | | | | [place] [address] | | | | | | [address] | | | | | | Roxanna Rodriguez [address] | | | | | | [place], | | | | | | [place] [address] | | | | | | [phone] | | | +--------+ + + + [...]
--- OUTSIDE RECORDS SUMMARY | ~2018-07-29 | XMS | Encounter Summary ---
Demographics + + + | Address | [address] | | | [place] [address] | + + + | Home Phone [...] + + + | Author | [facility] | + + + | Organization | [facility] | + + + | Address | Unknown | + + + | Phone | Unavailable | + + + Support + + +---------+ + | Name | Relationship | Address | Phone | + + +---------+ + | Isidra Wilson | ECON | Unknown | | + + +---------+ + Care Team Providers + +------+ + | Care Mini Bar Attendant Name | Role | Phone | + [...] Description | +--------+---------+ + + + | 12/10/ | Office | AntiCoagulation at | Maria Eugenia Gonzales, | Embolism (HCC); | | 2008 | Visit | [facility] [address] | BUSINESS RISK CONSULTANT [address] | Encounter for | | | | [facility] [address] [facility] [address] | [address] | Long-Term (Current) | | | | Physicians [place] | [place], [place] | Use of | | | | [address] | [address] | Anticoagulants | | | | Physicians [place] | [phone] | | | | | [place], [place] | | | | | | [address] | | | | | | [phone] | | | +--------+---------+ + + + [...] + + documented as of this encounter Patient Instructions Patient Instructions Maria Eugenia Gonzales, GILDA - 12/10/2008 11:22 AM PDTFormatting of this not e might be different from the original. Lab Results Component Value Date INR 1.9 12/10/08 DAILY WARFARIN DOSAGE INFORMATION: THEN: Wednesday (mg): 7.5 Wednesday (mg): 7.5 (mg): 10 Wednesday (mg): 7.5 Wednesday (mg): 5 Wednesday (mg): 2.5 NEXT INR DUE: 12/12/08 If you have any questions, medication changes, or bleeding, call the Anticoagulation Clinic at . For urgent problems after clinic hours, call your primary care provider . If your primary care provider is unavailable, call and ask the construction plant operator for the Bight Maker on-call. Rebecca Gonzales MS, BUSINESS RISK CONSULTANT documented in this encounter Progress Notes Maria Eugenia Gonzales FNP - 12/10/2008 11:22 AM PDT Establised patient Kelly Mcbride was evaluated by myself today in the [facility]. 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 PROBLEM FOCUSED EXAM: General: oriented, comfortable Eyes: conjunctive clear Ears/nose mouth/throat: no bleeding, ecchymosis, or petechiae Lungs: no chest pain with deep inspiration, equal excursion bilaterally, normal effort Heart: reg rate, rhythm Extremities: Right arm dressing dry and intact thumb visible and with dark skin. No other e xtremity edema, Discoloration. Capillary refill normal, pulses intact Neuro: grossly intact Skin: no bleeding, ecchymosis or petechiae Psychiatric: displays normal mood, affect and judgement Labs Reviewed: INR, Plt, HG and HCT Other Diagnostic Tests Reviewed: No other diagnostic tests reviewed at this visit. PATIENT COUNSELING AND EDUCATION REGARDING: Importance of taking prescribed dosage Importance of regular monitoring Importance of notifying clinic of health status change(s) Medications to avoid (ASA, NSAIDs, OTCs, botanicals, acetaminophen precautions) Factors influencing, anticoagulation: (diet, ETOH, activity, health, OTCs, herbs) Reporting medication changes Reporting signs of bleeding Contacting [facility] staff ASSESSMENT AND PLAN: Anticoagulation Therapy: Subtherapeutic - needs dose adjustment: Weekly warfarin dose as ordered. See ACC FLOWSHEET for current warfarin dosage. Needs further antico follow up: Next visit with lab test: 12/12/08 Lab Results Component Value Date INR 1.9 12/10/08 DAILY WARFARIN DOSAGE INFORMATION: THEN: Wednesday (mg): 7.5 Wednesday (mg): 7.5 (mg): 10 Wednesday (mg): 7.5 Wednesday (mg): 5 Wednesday (mg): 2.5 NEXT INR DUE: 12/12/08 If you have any questions, medication changes, or bleeding, call the Anticoagulation Clinic at . For urgent problems after clinic hours, call your primary care provider . If your primary care provider is unavailable, call and ask the construction plant operator for the Bight Maker on-call. Rebecca Gonzales MS, BUSINESS RISK CONSULTANT documented in this encounter Plan of Treatment Not on filedocumented as of this encounter Procedures + +--------+ + + + | Procedure Name | Priori | Date/Time | Associated Diagnosis | Comments | | | ty | | | | + +--------+ + + + | INR (PT), POC | Routin | 12/10/2008 | Embolism (HCC) | Results for this | | | e | | Encounter for | procedure are in the | | | | | Long-Term (Current) | results section. | | | | | Use of | | | | | | Anticoagulants | | + +--------+ + + + documented in this encounter Results INR (PT), POC (12/10/2008) + +---------+ + + + | Component | Value | Ref Range | Performed | Pathologist | | | | | At | Signature | + +---------+ + + + | [facility] | 1.9 (A) | 0.9 - 1.2 | [facility] [...] + + + + + | MELANIE - KATHLEEN | [address] | [place], [place] | | | [facility] | [facility] | [address] | | | TESTS | | | | + + + + + | [facility] | 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
--- OUTSIDE RECORDS SUMMARY | ~2018-07-29 | XMS | Encounter Summary ---
Demographics + + + | Address | [address] | | | [place] [address] | + + + | Home Phone | | + + + | Preferred Language | Unknown | + + + | Marital Status | | + + + | Roman Catholic Affiliation | Unknown | + + + | Race | Unknown | + + + | Ethnic Group | Unknown | + + + Author + + + | Author | [email or web address] | + + + | Organization | [facility] [employer] | + + + | Address | Unknown | + + + | Phone | Unavailable | + + + Support + + +---------+ + | Name | Relationship | Address | Phone | + + +---------+ + | Isidra Delgado | ECON | Unknown | | + + +---------+ + Care Team Providers + +------+ + | Care Network Engineer Administrator Name | Role | Phone | + +------+ + | Kj Austin MD | PCP | | + +------+ + Encounter Details +--------+ + + + + | Date | Type | Department | Care Team | Description | +--------+ + + + + | 05/27/ | Documentati | [facility] | Norberto Sullivan MD | | | 2019 | on Only | [facility] Center | [address] | | | | | [address] | [place], [place] | | | | | [place], [place] | [address] | | | | | [address] | | | | | | [phone] | | | +--------+ + + + [...] ORTIZ | | | | | | [id number] | | | | | | | | +--------+---------+ + + + as of this encounter Visit Diagnoses Not on filein this encounter"
--- OUTSIDE RECORDS SUMMARY | ~2018-07-29 | XMS | Encounter Summary ---
Demographics + + + | Address | [address] | | | [place] [address] | + + + | Home Phone | | + + + | Preferred Language | Unknown | + + + | Marital Status | Single | + + + | Baptist Affiliation | PRO | + + + [...] Team Providers + +------+ + | Care Movie Stunt Performer Name | Role | Phone | + +------+ + | Jim Bergman MD | PCP | | + +------+ + Reason for Visit Consultation (Routine) +--------+--------+ + + + + [...] | | | | | finger(s) | [place], [place] | [address] | | | | | (complete) | [address] | for Health | | | | | (partial), | Phone: | and Healing, | | | | | complicated | [phone] | 1st Floor | | | | | Procedures | Fax: | [place], [place] | | | | | OCC HAND | [phone] | [address] | | | | | THERAPY | | Phone: | | | | | REFERRAL IN | | [phone] | | | | | PPV | | Fax: | | | | | [facility] 4 | | [phone] | | | | | visits | | | +--------+--------+ + + + + Encounter Details +--------+---------+ + + + | Date | Type | Department | Care Team | Description | +--------+---------+ + + + | 01/02/ | Office | [facility] | [place], | Amputation | | 2008 | Visit | Occupational Therapy | [address] | Finger-Complicated | | | | Services at [facility] | [facility] | (Primary Dx) | | | | [facility] [address] [place], [place] | | | | | [place] Diaz Mailcode: | [address] | | | | | [address] for | | | | | | Health and Healing, | | | | | | 1st Floor [place], | | | | | | [place] [address] | | | | | | [phone] | | | +--------+---------+ + + + [...] documented as of this encounter Progress Notes Joan Pak - 01/02/2009 4:55 PM PST Addended by: JOAN PAK on: 01/02/2009 Modules accepted: Orders oan Pak - 01/02 3:54 PM [facility] HAND/OCCUPATIONAL THERAPY PROGRESS NOTE Name: Kelly Mcbride Subjective: 2/ visits today. Pt. States her pain is 0/10 Pt. Brought in therapy sheet. Objective: Reviewed home program and patient reqires cuing for all exercise. Pt. Asked to hold stretc h for longer duration to improve ROM Reviewed edema control and performed hand over hand demontration with patient Arom: Supination 70 Pronation 75 Wrist flexion 45 Wrist extension 10 Left mp flexion Index 34 Middle 40 Ring 26 Small 40 (necrotic tip) Thumb abduction passive 25 to 40 after instruction to abduct thumb and issued foam for webs pace stretching Fabricated mp flexion splint for continual use to reduce mp extension and collateral ligame nt shortening Treatment Today: therapeutic exercise and manual therapy. Assessment: Pt. Still has stitches in, per md wait one month until she gets them removed Pt. Nima improved after stretching Pt. Would benefit from therapy 2x per wk. For static progressive stretching Plan: F/u with therapist closer to home for splinting and ROM F/u with hand therapy at [facility] in one month Treatment began: 200 Treatment ended: 230 Treatment 430 to 500 docum ented in this encounter Plan of Treatment + + +--------+ + + | Name | Type | Priori | Associated Diagnoses | Order Schedule | | | | ty | | | + + +--------+ + + | VT MANUAL THER | Procedures | Routin | Amputation | Ordered: 01/02/2009 | | TECH,1+REGIONS,EA 15 | | e | Finger-Complicated | | | MIN | | | | | + + +--------+ + + | VT THERAPEUTIC | Procedures | Routin | Amputation | Ordered: 01/02/2009 | | EXERCISES | | e | Finger-Complicated | | + + +--------+ + + documented as of this encounter Visit Diagnoses + + | Diagnosis | + + | 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
--- OUTSIDE RECORDS SUMMARY | ~2018-07-29 | XMS | Encounter Summary ---
Demographics + + + | Address | [address] | | | [place] [address] | + + + | Home Phone [...] Team Providers + +------+ + | Care Veterinary Receptionist Name | Role | Phone | + +------+ + PCP | Unavailable | + +------+ + Reason for Visit +--------+ + | Reason | Comments | +--------+ + | Other | L hand ischemia | +--------+ + Encounter Details +--------+ + + + + | Date | Type | Department | Care Team | Description | +--------+ + + + + | 11/06/ | Emergency | [facility] Emergency | | | | 2008 - | | Department [address] | | | | [address] | | | | 11/07/ | | [facility] | | | | 2008 | | [place] [address] | | | | | | [phone] | | | +--------+ + + + [...] + + documented as of this encounter Medications at Time of Discharge [...]
--- OUTSIDE RECORDS SUMMARY | ~2018-07-29 | XMS | Encounter Summary ---
Demographics + + + | Address | [address] | | | [place] [address] | + + + | Home Phone | | + + + | Preferred Language | Unknown | + + + | Marital Status | | + + + | Temple Affiliation | Unknown | + + + | Race | Unknown | + + + | Ethnic Group | Unknown | + + + Author + + + | Author | [facility] | | | and [place] | + + + | Organization | [facility] | | | and [place] | + + + | Address | Unknown | + + + | Phone | Unavailable | + + + Support + + + + + | Name | Relationship | Address | Phone | + + + + + | Jovani Wilson | ECON | [place] [address] | | + + + + + | Isidra Delgado | ECON | Unknown | | + + + + + Care Team Providers + +------+ + | Care Mainspring Winder And Oiler Name | Role | Phone | + +------+ + | Kj Austin MD | PCP | | + +------+ + Reason for Visit +--------+ + | Reason | Comments | +--------+ + | Other | | +--------+ + Encounter Details +--------+ + + + + | Date | Type | Department | Care Team | Description | +--------+ + + + + | 07/26/ | Telephone | [facility] | Rain, | Gian | | 2019 | | [facility] | Jhon Macario MD [address] | | | | | [facility] [address] | | | | | [address] | [place] [address] | | | | | [place] [address] | [phone] | | | | | [phone] | | | +--------+ + + + [...]
--- OUTSIDE RECORDS SUMMARY | ~2018-07-29 | XMS | Encounter Summary ---
Demographics + + + | Address | [address] | | | [place] [address] | + + + | Home Phone | | + + + | Preferred Language | Unknown | + + + | Marital Status | Single | + + + | Jain Affiliation | PRO | + + + | Race | White | + + + | Ethnic Group | Not or | + + + Author + + + | Author | [facility] | + + + | Organization | [facility] | + + + | Address | Unknown | + + + | Phone | Unavailable | + + + Support + + +---------+ + | Name | Relationship | Address | Phone | + + +---------+ + | Isidra Wilson | ECON | Unknown | | + + +---------+ + Care Team Providers + +------+ + | Care Sas Clinical Programmer Name | Role | Phone | + [...] | | 2009 | | [facility] [place] | MD Chuyita | cancellation per | | | | Pavilion [address] | [address] | | | | [address] | | | | | | [address] [place] | | | | | | [place], | | | | | | [place] [address] | | | | | | [phone] | | | +--------+ + + + [...]
--- OUTSIDE RECORDS SUMMARY | ~2018-07-29 | XMS | Encounter Summary ---
Demographics + + + | Address | [address] | | | [place] [address] | + + + | Home Phone | | + + + | Preferred Language | Unknown | + + + | Marital Status | Single | + + + | Gnosticism Affiliation | PRO | + + + | Race | White | + + + | Ethnic Group | Not or | + + + Author + + + | Author | [facility] | + + + | Organization | [facility] | + + + | Address | Unknown | + + + | Phone | Unavailable | + + + Support + + +---------+ + | Name | Relationship | Address | Phone | + + +---------+ + | Isidra Wilson | ECON | Unknown | | + + +---------+ + Care Team Providers + +------+ + | Care Director Power Name | Role | Phone | + [...] | | | | | finger(s) | [place], [place] | [address] | | | | | (complete) | [address] | for Health | | | | | (partial), | Phone: | and Healing, | | | | | complicated | [phone] | 1st Floor | | | | | Procedures | Fax: | [place], [place] | | | | | OCC HAND | [phone] | [address] | | | | | THERAPY | | Phone: | | | | | REFERRAL IN | | [phone] | | | | | PPV | | Fax: | | | | | [facility] 4 | | [phone] | | | | | visits | | | +--------+--------+ + + + + Encounter Details +--------+---------+ + + + | Date | Type | Department | Care Team | Description | +--------+---------+ + + + | 12/13/ | Office | Orthopaedics at | Yazmin Queen PA | Amputation | | 2008 | Visit | [facility] [address] | [address] | Finger-Complicated | | | | Ave Mailcode: CH12A | [place], [place] | (Primary Dx) | | | | [place] for [facility] | [address] | | | | | and , | [phone] | | | | | Floor [place], [place] | | | | | | [address] | | | | | | [phone] | | | +--------+---------+ + + + [...] her diabetes c loser to home in [place]. She was advised to call our office if she needs assistance with th is. 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
--- OUTSIDE RECORDS SUMMARY | ~2018-07-29 | XMS | Encounter Summary ---
Demographics + + + | Address | [address] | | | [place] [address] | + + + | Home Phone | | + + + | Preferred Language | Unknown | + + + | Marital Status | Single | + + + | Tenriism Affiliation | PRO | + + + | Race | White | + + + | Ethnic Group | Not or | + + + Author + + + | Author | [facility] | + + + | Organization | [facility] | + + + | Address | Unknown | + + + | Phone | Unavailable | + + + Support + + +---------+ + | Name | Relationship | Address | Phone | + + +---------+ + | Isidra Wilson | ECON | Unknown | | + + +---------+ + Care Team Providers + +------+ + | Care Pipe Layer Name | Role | Phone | + +------+ + | Jim Bergman MD | PCP | | + +------+ + Encounter Details +--------+ + + + + | Date | Type | Department | Care Team | Description | +--------+ + + + + | 12/03/ | Slot Host | Vascular Surgery | Tess Rae | Embolism (HCC) | | 2008 | | at [facility] 2nd Floor | | (Primary Dx) | | | | [address] | | | | | [address] | | | | | | Mailcode: OP11 | | | | | | Lucio Do | | | | | | [place], [place] | | | | | | [address] | | | | | | [phone] | | | +--------+ + + + [...]
--- OUTSIDE RECORDS SUMMARY | ~2018-07-29 | XMS | Encounter Summary ---
Demographics + + + | Address | [address] | | | [place] [address] | + + + | Home Phone | | + + + | Preferred Language | Unknown | + + + | Marital Status | | + + + | Christianity Affiliation | Unknown | + + + | Race | Unknown | + + + | Ethnic Group | Unknown | + + + Author + + + | Author | [facility] | + + + | Organization | [facility] [facility] | + + + | Address | Unknown | + + + | Phone | Unavailable | + + + Support + + +---------+ + | Name | Relationship | Address | Phone | + + +---------+ + | Isidra Delgado | ECON | Unknown | | + + +---------+ + Care Team Providers + +------+ + | Care Cigarette Maker Name | Role | Phone | + +------+ + | Kj Austin MD | PCP | | + +------+ + Encounter Details +--------+ + + + + | Date | Type | Department | Care Team | Description | +--------+ + + + + | 05/27/ | Documentati | [facility] | Norberto Sullivan MD | | | 2019 | on Only | Neuroscience Center | [address] | | | | | [address] | [place], [place] | | | | | [place], [place] | [address] | | | | | [address] | | | | | | [phone] | | | +--------+ + + + [...] ORTIZ | | | | | | [id number] | | | | | | | | +--------+---------+ + + + as of this encounter Visit Diagnoses Not on filein this encounter"
--- OUTSIDE RECORDS SUMMARY | ~2018-07-29 | XMS | Encounter Summary ---
Demographics + + + | Address | [address] | | | [place] [address] | + + + | Home Phone | | + + + | Preferred Language | Unknown | + + + | Marital Status | Single | + + + | Yarsani Affiliation | PRO | + + + | Race | White | + + + | Ethnic Group | Not or | + + + Author + + + | Author | [facility] | + + + | Organization | [facility] | + + + | Address | Unknown | + + + | Phone | Unavailable | + + + Support + + +---------+ + | Name | Relationship | Address | Phone | + + +---------+ + | Isidra Wilson | ECON | Unknown | | + + +---------+ + Care Team Providers + +------+ + | Care Night Club Manager Name | Role | Phone | + +------+ + PCP | Unavailable | + +------+ + Reason for Referral PROC - Inpatient Surgery (Routine) +--------+--------+ + + + + | Status | Reason | Specialty | Diagnoses / | Referred By | Referred To | | | | | Procedures | Contact | Contact | +--------+--------+ + + + + | Closed | | Orthopedics | Diagnoses | Emergency | [place], | | | | | Avascular | Dept [facility] | MD Jhon | | | | | necrosis | [address] | [address] | | | | | ([facility]) | [address] | [address] [address] | | | | | Aseptic | [address] [facility] | Rd [place], | | | | | necrosis of | HOSPITAL | [place] | | | | | other bone | [place], [place] | [address] | | | | | site | [address] | Phone: | | | | | Procedures | Phone: | [phone] | | | | | REQUEST TO | [phone] | Fax: | | | | | SURGERY | | [phone] | | | | | CLEANERS | | | | | | | MT DRAIN | | | | | | | FINGER | | | | | | | ABSCESS,SIMP | | | | | | | LE MT DRAIN | | | | | | | FINGER | | | | | | | ABSCESS,COMP | | | | | | | LICATED MT | | | | | | | DRAIN HAND | | | | | | | TENDON | | | | | | | SHEATH MT | | | | | | | AMPUTATION | | | | | | | FINGER/THUMB | | | | | | | MT | | | | | | | AMPUTATION | | | | | | | FINGER/THUMB | | | | | | | MT | | | | | | | AMPUTATION | | | | | | | FINGER/THUMB | | | | | | | MT | | | | | | | AMPUTATION | | | | | | | FINGER/THUMB | | | +--------+--------+ + + + + Encounter Details +--------+ + + + + | Date | Type | Department | Care Team | Description | +--------+ + + + + | 11/15/ | Head Of It | Orthopaedics at | Jhon Cabello MD | Avascular Necrosis | | 2008 | | [facility] [address] | [address] | ([facility]) (Primary Dx) | | | | Ave Mailcode: CH12A | [place] | | | | | [facility] | [place], [place] | | | | | and [place] | [address] | | | | | Floor [place], [place] | [phone] | | | | | [address] | | | | | | [phone] | | | +--------+ + + + [...] + | Diagnosis | + + | Avascular necrosis (HCC) - Primary Aseptic necrosis of bone, site unspecified | + + documented in this encounter"
--- OUTSIDE RECORDS SUMMARY | ~2018-07-29 | XMS | Encounter Summary ---
Demographics + + + | Address | [address] | | | [place] [address] | + + + | Home Phone [...] Author + + + | Author | [facility] | + + + | Organization | [facility] | + + + | Address | Unknown | + + + | Phone | Unavailable | + + + Support + + +---------+ + | Name | Relationship | Address | Phone | + + +---------+ + | Isidra Wilson | ECON | Unknown | | + + +---------+ + Care Team Providers + +------+ + | Care Skidway Man Name | Role | Phone | + [...] W Blake | | | | | [facility] | [facility] & | Calos Paulino | | | | | [facility] | [employer] | Road | | | | | | [place] | Mailcode: | | | | | | [address] | [address] | | | | | | Calos Paulino | Physicians | | | | | | Rd | Pavilion | | | | | | [place], [place] | [place], [place] | | | | | | [address] | [address] | | | | | | | Phone: | | | | | | | [phone] | | | | | | | Fax: | | | | | | | [phone] | +--------+--------+ + + + + Diagnostic [...] | | | | Sam Sumner, | [facility] [address] | | | | | TRANSTHORACI | MD [place]tr[place] | [address] | | | | | C | Health & | [employer] [facility] | | | | | ECHOCARDIOGR | Science | Mailcode: | | | | | AM, ADULT | [place] | [address] | | | | | | [address] | Calos Begum | | | | | | Calos Paulino | Building | | | | | | Rd | [place], [place] | | | | | | [place], [place] | [address] | | | | | | [address] | Phone: | | | | | | | [phone] | +--------+--------+ + + + + Diagnostic [...] | | | | Sam Sumner, | [facility] [address] | | | | | TRANSTHORACI | MD [place] | [address] | | | | | C | Health & | [facility] | | | | | ECHOCARDIOGR | Science | Mailcode: | | | | | AM, ADULT | [place] | [address] [facility] | | | | | | [address] | [facility] | | | | | | [facility] | Building | | | | | | Rd | [place], [place] | | | | | | [place], [place] | [address] | | | | | | [address] | Phone: | | | | | | | [phone] | +--------+--------+ + + + + Reason [...] | | | | | | | [facility] | | | | | | | [facility] | | | | | | | [place], [place] | | | | | | | [address] Phone: | | | | | | | [phone] | | | | | | | Fax: | | | | | | | [phone] | +--------+--------+ + + + + Encounter [...] | 12/04/ | | KPV13 GAURAV | [address] | | | 2008 | | [place], | | | | | | [place] [address] | | | | | | [phone] | | | +--------+ + + + [...] on left forearm. She was airlifted to [facility] from [facility] . A duplex from that facility [...] and large fibroid uterus per Gynecology. Per Experimental Mechanic Electrical ecology, "Uterine artery embolization is an option [...] this lack of signal, she returned [facility] secondary to pulselessness distally on 11/08 for [...] Yes ( ) No ( x) Call: [phone] If you have any of the following: Difficulty breathing or unusual shortness of breath Excessive bleeding, drainage at the operative site Fevers, chills, increased pain that is not relieved by pain medications Persistent nausea or vomiting Other SPECIFIC concerns, such as: None Follow Up Appointments: PCP: None. List of [facility] clinics provided to patient Other: Vascular Surgery 12/12 at 2:30 pm [phone], Lucio Omer, 3rd floor Orthopedic Hand Surgery Clinic, Dr Jhon Cabello 12/13 at 1015 , 12 floor o [facility] 12/06 at 1 pm [phone] Call [facility] Clinic, Dr. Avery Lee, for appointment on to evaluate you for hysterectomy [phone], Women's Health, Patricia Omer Follow Up Tests: (Tests at [facility] must be entered into [employer]) None Condition On Discharge:stable Vital Signs at [...] on left forearm. She was airlifted to [facility] from [facility] . A duplex from that facility [...] and large fibroid uterus per Gynecology. Per Experimental Mechanic Electrical ecology, "Uterine artery embolization is an option [...] this lack of signal, she returned to [facility] secondary to pulselessness distally on 11/08 for [...] Yes ( ) No ( x) Call: [phone] If you have any of the following: Difficulty breathing or unusual shortness of breath Excessive bleeding, drainage at the operative site Fevers, chills, increased pain that is not relieved by pain medications Persistent nausea or vomiting Other SPECIFIC concerns, such as: None Follow Up Appointments: PCP: None. List of [facility] clinics provided to patient Other: Vascular Surgery 12/12 at 2:30 pm [phone], Lucio Omer, 3rd floor Orthopedic Hand Surgery Clinic, Dr Jhon Cabello 12/13 at 1015 , 12 floor [facility], [facility] Anticoagulation Clinic 12/06 at 1 pm [phone] Call [facility] [employer] Clinic, Dr. Avery Lee, for appointment on to evaluate you for hysterectomy , Women's Health, Patricia Omer Follow Up Tests: (Tests at [facility] must be entered into [facility]) None Condition On Discharge:stable Vital Signs at discharge as appropriate: Wt 69.3 kg (152 lbs 12.5 oz)( < 3 %ile), BP 112/71 , Pulse 85, Temperature 36.3 C (97.3 F), RR 13, SpO2 100%. Discharge Patient To: Home with son for assistance Does patient have a planned readmission: No Discharge Summary completed: yes Discharging Provider: Kaela Molina [facility] Date Completed: 12/04/08 Time Completed: 1100 Discharging [...] Mode of Transportation: Car Accompanied by: Family/Responsible Libertarian Discharge Nurse: CASANDRA Date: 12/04/2008 Discharge Time: 12:07 PM AttachmentsThe following attachments cannot be sent through Care Everywhere.Adult Health Ad visor 2008.1: Blood Glucose TestAdtuba city [facility] Health Advisor 2008.1: Diabetes Mellitus: Type 2Adu Health Advisor 2008.1: Diabetes Overview (Living with Diabetes)Adult Health Advisor 2008.1: Diabetes: Food ManagementAdtuba city [facility] Health Advisor 2008.1: Diabetes: Self Blood Glucose [...] hand OT once appropriate. Thank you. Pager #[phone] signed by Tasha Lopez at 12/03/2008 3:19 [...] teaching re: self administration along with a health care manager as she's only able to use 1 hand currently. Ensure th at she has a glucometer with strips at home. Notified Carlin Clemente Will sign off, please re-consult if needed. TORRES العراقي MD Medical Record Clerkoil and gas exploration technician Clinical Hospitalist Service Division of Hospital Medicine Department of Medicine [facility] DEPARTMENT: Hosp ([facility] [phone] Place of Service: IP - [id number] Modifiers:GC Resident Involved: No CPT: 32410 Subsequent Visit Prob Focused/Low Complexity 15 min [...] not being [facility] to [facility] However the patient's Hba1c is 14 [...] s.c bid. D/c D5LR TORRES العراقي MD Medical Record Clerkoil and gas exploration technician Clinical Hospitalist Service Division of [facility] Medicine Department of Medicine [facility] DEPARTMENT: Hosp ([facility] [phone] Place of Service: - [id number] Modifiers:GC Resident Involved: No CPT: 11047 Subsequent Visit Prob Focused/Low Complexity 15 min arlin Clemente MD - 12/01/2008 4:18 PM PDT VASCULAR SURGERY INPATIENT PROGRESS NOTE Hospital Day: Author; CARLIN CLEMENTE MD Attending Physician: Roc Rae MD Interval Hx: no events. Physical Exam: [...] f rom the original. CLINICAL HOSPITALIST SERVICE ([facility])-PROGRESS NOTE Glycemic team follow up: HOSPITAL DAY: [...] not being able to afford the [facility]. However the patient's Hba1c is 14 [...] 24 U s.c bid. TORRES العراقي MD [facility] 13 Clinical Hospitalist Service [facility] DEPARTMENT: Hosp ([facility] [phone] Place of Service: - [address] [facility] [phone] CPT: 32128 Subsequent Visit Prob Focused/Low Complexity 15 min [...] not being able to afford the [facility] However the patient's Hba1c is 14 [...] insulin regimen for now. TORRES العراقي MD [facility] 13 Clinical Hospitalist Service [facility] EPIC DEPARTMENT: Hosp ([facility])- [phone] Place of Service: IP - [id number] [facility] [phone] CPT: 46804 Subsequent Visit Prob Focused/Low Complexity 15 min Total time spent on this encounter: 20 Torres Raya MD - 11/29/2008 9:03 AM PDT CLINICAL HOSPITALIST SERVICE ([facility])-PROGRESS NOTE Glycemic team follow up: HOSPITAL DAY: [...] 8 U tid a/c. TORRES العراقي MD [facility] 11K Clinical Hospitalist Service [facility] EPIC DEPARTMENT: Hosp ([facility])- [phone] Place of Service: [facility] [address] [facility] [phone] CPT: 95127 Subsequent Visit Prob Focused/Low Complexity 15 min [...] well with pain well controlled. Dalilarubinaangel Crowder [facility] 11K [address] 4a/uhs8j [facility] [address] Torres Raya MD - 11/28/2008 1:16 PM [...] not being able to afford the [facility] However the patient's Hba1c is 14 [...] tid ac from am. TORRES العراقي MD [address] Clinical Hospitalist Service [facility] DEPARTMENT: Hosp ([facility] [phone] Place of Service: - [address] [facility] [phone] Modifiers:GC Resident Involved: No CPT: 32031 Subsequent Visit Exp Prob Foc/Mod Complexity 25 [...] Deltoid Biceps Triceps Thumb Ext Digit Abd Wearing Apparel Presser - intact intact intact 0 intact - [...] she does need Insulin. TORRES العراقي MD [facility] 6A Clinical Hospitalist Service [facility] DEPARTMENT: Hosp ([facility] [phone] Place of Service: [facility] [address] [facility] [phone] CPT: 61969 Subsequent Visit Prob Focused/Low Complexity 15 min [...] Deltoid Biceps Triceps Thumb Ext Digit Abd Wearing Apparel Presser - intact intact intact 0 intact - [...] use the left arm. PRITI FONSECA MD [address] Clinical Hospitalist Service [facility] DEPARTMENT: Hosp ([facility] [phone] Place of Service: IP - [address] [facility] [id number] CPT: 53742 Subsequent Visit Prob Focused/Low Complexity 15 min Total time spent on this encounter: 15' Yvette Lieberman Md - 11/25/2008 11:36 AM PDT VASCULAR [...] will be NPO again. PRITI FONSECA MD [facility] 11K Clinical Hospitalist Service [facility] DEPARTMENT: Hosp ([facility] [phone] Place of Service: IP - [id number] [facility] [phone] CPT: 04539 Subsequent Visit Prob Focused/Low Complexity 15 min [...] MD - 11/24/2008 11:43 AM PDT INPATIENT SCRAPE GATHERER FOLLOW-UP NOTE Hospital Day:18 Author; XI GILMAN [...] f/u with gynecology as an outpatient for longterm management, will plan to taper off pro vera as an outpt. If this higher-dose provera were stopped acutely, would likely precipitate vaginal withdrawal bleed. - will sign off for now, please call for any questions or concerns, or for vaginal bleeding soaking 1 pad/hr. - Patient may call #[phone] to schedule an appointment in the resident field collector clinic at 2 -4 weeks after her [...] S. Will follow up ortho/hand recs Appreciate field collector recs, will call for further significant vaginal bleeding. Will plan for STSG on Wednesday for coverage of forearm wound. Chely, Priti Yoon MD - 11/24/2008 8:11 AM PDT CLINICAL HOSPITALIST SERVICE ([facility])-PROGRESS NOTE Glycemic team follow up: HOSPITAL DAY: [...] the left arm. RN instructed.hui FONSECA MD [place] [address]K Clinical Hospitalist Service [facility] EPIC DEPARTMENT: Hosp ([facility])- [phone] Place of Service: - [address] [facility] [phone] CPT: 93320 Subsequent Visit Prob Focused/Low Complexity 15 min Total time spent on this encounter: 20' Xiomara Browne Md - 11/24/2008 7:36 AM PDT Ortho Progress Note 11/24/2008 Hospital Day #18 S: No events, pt reports no changes in L hand. Underwent field collector surgery yesterday. O: Last Vitals: BP 108/64 [...] M D - 11/23/2008 11:51 PM PDT SCRAPE GATHERER Post op check Delayed note entry for [...] to soak 1-2 large pads to call SCRAPE GATHERER Will continue to follow for now. 1 1:56 PM Chely, rPiti Yoon MD - 11/23/2008 6:30 PM PDTFormatting of this note might be di fferent from the original. CLINICAL HOSPITALIST SERVICE ([facility])-PROGRESS NOTE Glycemic team follow up: HOSPITAL DAY: [...] Would d/c IV fluids. PRITI FONSECA MD [place] [address]K Clinical Hospitalist Service [facility] DEPARTMENT: Hosp ([facility] [phone] Place of Service: IP - [phone] [facility] [phone] CPT: 28976 Subsequent Visit Prob Focused/Low Complexity 15 min [...] le ft hand. To OR today with SCRAPE GATHERER for myomectomy vs hysterectomy Will remove wound [...] the resident s note. AVERY LEE MD [facility] [address]K [address] 4a/uhs8j [place] [address] acob, Priti Yoon MD - 11/22/2008 8:26 [...] a HBA1c of > 14 [facility] [place] tomorrow for gynecological surgery. Diet : [...] cover basal insulin requirement. PRITI FONSECA MD [address] Clinical Hospitalist Service [facility] DEPARTMENT: [facility] ([facility] [phone] Place of Service: IP - [id number] [facility] [phone] CPT: 01633 Subsequent Visit Prob Focused/Low Complexity 15 min Total time spent on this encounter: 20' Margie Gamboa MD - 11/22/2008 5:09 PM PDTBrief PM update note: Pt feeling ready for field collector surgery tomorrow. Appreciate primary team ordering NPO, [...] 11/23 in the AM. 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 [employer]ic [employer] to take pt to OR tomorrow for vaginal vs abdominal hysterectomy NPO p MN with MIVF Holding lovenox for now 4 u PRBC OCTOR for tomorrow Will try to change wound vac in OR after field collector case while pt still sedated. Appreciate ortho/hand [...] the resident s note. AVERY LEE MD [facility] 11K [address] [facility] 4a/uhs8j [facility] [address] Misbah Dhillon MD - 11/21/2008 7:20 PM [...] changes. Sam Niño M.D. General Surgery Resident [facility] Pager: [phone] Nasra Gaona Md - 11/21/2008 11:45 AM [...] mg, 70 mg, Subcutaneous, BID, Kierra Donohue, [facility], Last Dose: 70 mg at [...] daily hand dressing changes. 4) Bleeding fibroid: [employer] team plans vaginal myomectomy with possible abdominal hysterectom y if unable to resect by vaginal approach. Right now their plan is to go to the OR Wednesday v. Wednesday. We will continue to be in communication with them as far as definitive plans. Nasra Lamar, MSIV Chely, Priti Yoon MD - 11/21/2008 9:15 AM PDT CLINICAL HOSPITALIST SERVICE ([facility])-PROGRESS NOTE Glycemic team follow up: HOSPITAL DAY: [...] diabetic teaching by RN PRITI FONSECA MD [facility] 11K Clinical Hospitalist Service [facility] DEPARTMENT: Hosp ([facility] [phone] Place of Service: IP - [id number] [facility] [phone] CPT: 52746 Subsequent Visit Prob Focused/Low Complexity 15 min [...] Deltoid Biceps Triceps Wrist Ext Digit Abd Wearing Apparel Presser Intact Intact Intact Intact 0 Intact - [...] - 2:27 PM PDT CLINICAL HOSPITALIST SERVICE ([facility])-PROGRESS NOTE Glycemic team follow up: HOSPITAL DAY: [...] Novolog will be held. BRYCE REYNA MD [facility] 11K Clinical Hospitalist Service [facility] DEPARTMENT: Hosp ([facility] [phone] Place of Service: IP - [address] [facility] [id number] CPT: 81360 Subsequent Visit Prob Focused/Low Complexity 15 min [...] MD, Last Dose: 650 mg at 11/17/08 9537 aspirin EC tablet 325 mg, 325 mg, [...] mg, 70 mg, Subcutaneous, BID, Kierra Donohue [facility], Last Dose: 70 mg at [...] ortho team this afternoon. 2) Vaginal bleeding: Experimental [employer] team still deciding definitive operative plan. We [...] MD Attending Physician: Roc Rae MD Interval field collector hx: Pt with ongoing vaginal bleeding overnight. [...] difficulty in OR coordination. Margie Cates MD, [facility] Aly Delong MD - 11/19/2008 2:13 PM [...] mg, 70 mg, Subcutaneous, BID, Kierra Donohue [facility], Last Dose: 70 mg at [...] 5-20 mg, 5-20 mg, Oral, Q3H PRN, PEETR Rosas, Last Dose: 20 mg at 11/19/08 [...] washout. 2) Vaginal bleeding: Will defer to field collector for plan. Will continue to watch crits [...] examinatio n and plan. ALY FLETCHER MD [facility] 11K [address] 4a/uhs8j [place] [address] Ulysses Black MD - 11/19/2008 9:56 AM [...] Deltoid Biceps Triceps Wrist Ext Digit Abd Wearing Apparel Presser Intact Intact Intact Intact 0 Intact - [...] at the middle p halanx this Wed. Experimental [employer]ic Electrical would like to coordinate procedures, however, will be the th ird case on Wed and we have a fourth case to follow her and will be unable to have Experimental Mechanic Electrical sarai pino to follow. Bryce Nath MD - 8:11 AM PDT CLINICAL HOSPITALIST SERVICE ([facility])-PROGRESS NOTE Glycemic team follow up: HOSPITAL DAY: [...] NPH to 26 units BRYCE REYNA MD [facility] 11K Clinical Hospitalist Service [facility] EPIC DEPARTMENT: Hosp ([facility] [phone] Place of Service: - [address] [facility] [phone] CPT: 21741 Subsequent Visit Prob Focused/Low Complexity 15 min Total time spent on this encounter: 18 min Avery Matias MD - 0 11/19/2008 6:25 AM PDTI saw and evaluated the patient. I agree with the findings and the pl an of care as documented in the resident s note. I saw the patient at another time this evening, and have separate documentation AVERY LEE MD [place] [address] [address] 4a/uhs8j [place] [address] Emily Giraldo MD - 11/19/2008 6:25 AM [...] continue the same regimen. BRYCE REYNA MD Medical Record Clerkoil and gas exploration technician Clinical Hospitalist Service Division of Hospital Medicine Department of Medicine [facility] EPIC DEPARTMENT: Hosp ([facility] [phone] Place of Service: IP - [id number] Modifiers:GC Resident Involved: No CPT: 44876 Subsequent Visit Prob Focused/Low Complexity 15 min [...] mg, 70 mg, Subcutaneous, BID, Kierra Donohue [facility], Last Dose: 70 mg at [...] Hct currently stable, will continue to follow. Experimental [employer]ic Electrical plans to perform va ginal myomectomy of [...] her anticoagu lation.Will hold discussion with the Experimental Mechanic Electrical attending (Dr. Fritz Lee the week of [...] hysterectomy. Will discu ss plan further with Experimental [employer]ic Electrical team on Wednesday. 3. Interventional Radiology notified about patient in the event patient has acute episode o f vaginal bleeding. Esther Gayle, Yasmeen Green 11/17/2008 5:23 PM PDTFormatting of this note might be different from the [facility]. INPATIENT PROGRESS NOTE Hospital Day: [...] be amputation of prolapsing uterine fibr oid. Experimental [employer]ic Electrical surgery team has not been coordinated yet. [...] cases will be rescheduled for Wednesday with Experimental [employer]ic Electrical and Ortho. States she only us ed [...] mg, 70 mg, Subcutaneous, BID, Kierra Donohue, [facility], Last Dose: 70 mg at [...] Hct currently stable, will continue to follow. Experimental Mechanic Electrical plans to perform vaginal myomectomy o f [...] as it is cheaper. BRYCE REYNA MD [facility] 11K Clinical Hospitalist Service [facility] [place] EPIC DEPARTMENT: Hosp ([facility] [phone] Place of Service: IP - [address] [facility] [phone] CPT: 07815 Subsequent Visit Prob Focused/Low Complexity 15 min [...] and can follow up Mon in clinic [phone].Elec tronically signed by Ulysses Pena MD at 11/16/2008 5:35 PM rByce Nath MD - 009 3:01 PM PDT CLINICAL HOSPITALIST SERVICE ([facility])-PROGRESS NOTE Glycemic team follow up: HOSPITAL DAY: [...] 10 units TID . BRYCE REYNA MD [facility] 11K Clinical Hospitalist Service [facility] DEPARTMENT: Hosp ([facility] [phone] Place of Service: - [address] [facility] [id number] CPT: 78194 Subsequent Visit Prob Focused/Low Complexity 15 min [...] mg, 70 mg, Subcutaneous, BID, Kierraher Donohue, [facility], Last Dose: 70 mg at [...] Vaginal Bleeding: Will continue to follow H/H. Experimental [employer]ic Electrical team has been following and has been [...] Planning to take to OR tomorrow- if [employer]USEUM REGISTRAR O-stop scheduled aspart. BRYCE REYNA MD [facility] 11K Clinical Hospitalist Service [facility] DEPARTMENT: Hosp ([facility] [phone] Place of Service: IP - [id number] [facility] [phone] CPT: 71763 Subsequent Visit Prob Focused/Low Complexity 15 min [...] Deltoid Biceps Triceps Wrist Ext Digit Abd Wearing Apparel Presser Intact Intact Intact Intact 0 Intact - [...] 11/14/2008 6:50 PM PDT CLINICAL HOSPITALIST SERVICE ([facility])-PROGRESS NOTE Glycemic team follow up: HOSPITAL DAY: [...] cover fasting blood sugars. BRYCE REYNA MD [facility] 11K Clinical Hospitalist Service [facility] DEPARTMENT: Hosp ([facility] [phone] Place of Service: IP - [phone] [facility] [phone] CPT: 48123 Subsequent Visit Prob Focused/Low Complexity 15 min [...] Deltoid Biceps Triceps Wrist Ext Digit Abd Wearing Apparel Presser Intact Intact Intact Intact 0 Intact - [...] clinic NEXT available when she is discharged [phone]. airBryce MD - 12:18 PM PDT CLINICAL [...] of her diabetes with PCP. Need social science analyst help with medicati ons as she has no insurance. Patient would benefit from lisinopril 5 mg daily for microalbum inuria. BRYCE REYNA MD [facility] 11K Clinical Hospitalist Service [facility] DEPARTMENT: Hosp ([facility] [id number] Place of Service: IP - [id number] [facility] [phone] CPT: 47912 Subsequent Visit Prob Focused/Low Complexity 15 min [...] 1) Continue wound dressing changes 2) Follow-up field collector recs for vaginal bleeding. Consider necessity of uterine artery embolization following massive bleedi ng in future. 4) Continue IV pain control as needed. Titrating off MELANGEUR OPERATOR with oxycodone. IV diluadid for breakthrough. Avery [...] Continue wound dressing changes daily. 2) Follow-up field collector recs for vaginal bleeding. 3) Consider necessity of uterine artery embolization following massive bleeding in future . 4) Continue IV pain control as needed. Avery Almazan MS, MD Neurological Surgery, PGY-1 4-2740 Nasra Gaona Md - 11/12/2008 7:10 PM [...] mg, 70 mg, Subcutaneous, BID, Kierra Donohue [facility], Last Dose: 70 mg at 11/12/08 0839 glucagon (aka GLUCAGEN) injection 1 mg, 1 mg, Intramuscular, PRN, Sam Niño MD glucose chewable tablet 15 g, 15 g, Oral, Q15MIN PRN, Sam Niño MD HYDROmorphone 0.5 mg/mL MELANGEUR OPERATOR infusion (ADULT, Pyxis) , , Intravenous, CONTINUOUS, [...] hand fascio tomies. 1) Pain control: continue MELANGEUR OPERATOR as pt pain well controlled today 2) Wound care: Will change vac tomorrow and continue a Tues/Fri schedule for changes. 3) Vaginal bleeding: We will continue to follow crits closely and transfuse as necessary. Experimental Mechanic Electrical team is following. An US study suggested fibroids as the culprit for her extensive bleed ing. Will defer to field collector team as to whether this bleeding episode [...] g, Oral, Q15MIN PRN HYDROmorphone 0.5 mg/mL MELANGEUR OPERATOR infusion (ADULT, Pyxis) , , Intravenous, CONTINUOUS [...] les s expensive 5. Please involve social science analyst/case management as soon as possible to sort out social issu es (no PCP and no insurance). BERNICE ALVAREZ MD [facility] 11K Clinical Hospitalist Service [facility] DEPARTMENT: Hosp ([facility] [phone] Place of Service: [facility] [phone] CPT: 35551 Subsequent Visit Prob Focused/Low Complexity 15 min [...] Deltoid Biceps Triceps Wrist Ext Digit Abd Wearing Apparel Presser - - - Intact 0 Intact - [...] g, Oral, Q15MIN PRN HYDROmorphone 0.5 mg/mL MELANGEUR OPERATOR infusion (ADULT, Pyxis) , , Intravenous, CONTINUOUS [...] flexor compartment fasciotomies. 1. Cont pain control (MELANGEUR OPERATOR). 2. Mobilize. 3. Will give 1U blood - tachy, anemic (hct: 22). 4. Cont local wound care, plan to change wound vac Wed vs . 5. Appreciative of Experimental Mechanic Electrical and Ortho rec's. 6. Pt stable enough for MRI if indicated. 7. Martinez status (tx orders written). Sam Niño M.D. General Surgery Resident [facility] Pager: [phone] Xi Stevenson MD - 11/11/2008 6:00 AM PDTI saw and examined Kelly Mcclellan with the residents on 11/11/08 and agree with the assesment and plan as outlined in this note and participated in the plann ing of her care. I spent 10 minutes at the bedside providing critical care exclusive of procedures. [phone] Jhon Duenas MD - 11/11/2008 6:00 AM [...] for transfer, pa in well-controlled c/ Dilaudid MELANGEUR OPERATOR. Wound Vac placed at medial fasciiotomy site. [...] @75 Out: UOP: 50-100ml/hr Pain control: Dilaudid MELANGEUR OPERATOR Medications: Current hospital medications: acetaminophen (aka TYLENOL) [...] 50 mg, 50 mg, Oral, PRN, Sam Nñio MD docusate sodium (aka COLACE) capsule 100 mg, 100 mg, Oral, BID PRN, Avery Almazan MD glucagon (aka GLUCAGEN) injection 1 mg, 1 mg, Intramuscular, PRN, Sam Niño MD glucose chewable tablet 15 g, 15 g, Oral, Q15MIN PRN, Sam Niño MD HYDROmorphone 0.5 mg/mL MELANGEUR OPERATOR infusion (ADULT, Pyxis) , , Intravenous, CONTINUOUS, [...] acute neurologic issues, pain well-controlled on Dilaudid MELANGEUR OPERATOR, Distal movement of L hand flexors/extensors intact, [...] with h/o DUB worsened by heparin gtt, SCRAPE GATHERER consulted and started progesterone, performed endometrial biopsy [...] the resident s note. Lo Castro MD Medical Record Clerk, Obstetrics & [place] [address] Shelby Almeida MD - 11/11/2008 4:01 AM [...] fibroid. Vaginal bleeding currently resolved. Recommendations regarding Experimental Mechanic Electrical issues: 1) Pelvic u/s done yesterday. See [...] will follow-up endometrial biopsy results when available. Experimental Mechanic Electrical always available in-house. Please contact us for [...] 400 Units/hr, Intravenous, CONTINUOUS HYDROmorphone 0.5 mg/mL MELANGEUR OPERATOR infusion (ADULT, Pyxis) , , Intravenous, CONTINUOUS [...] thrombectomy and fasciotomies. Stab le. 1. Cont MELANGEUR OPERATOR. 2. Bed rest (flat) for 6hrs now [...] martinez. Sam Niño M.D. General Surgery Resident [facility] Pager: [phone] oung, Doreen - 10/30 9:14 AM PDT [...] this morning, pain adequately controlled on dilaudid MELANGEUR OPERATOR. Sh e has had consistent biphasic doppler [...] 1512 ml/24 hr Drips: Pain Control: Diludid MELANGEUR OPERATOR Insulin @2 Heparin @400 U/hr Current hospital [...] 400 Units/hr, Intravenous, CONTINUOUS, Sam Niño MD, Stopped at: 11/10/08 0800 HYDROmorphone 0.5 mg/mL MELANGEUR OPERATOR infusion (ADULT, Pyxis) , , Intravenous, CONTINUOUS, [...] and oriented. Pain adequately controlled on dilaudid MELANGEUR OPERATOR with 0.1 mg dosing . Distal movement [...] the resident s note. Lo Castro MD Medical Record Clerk, Obstetrics & [place] [address] Xi Segundo MD - 11/10/2008 9:13 AM PDT INPATIENT PROGRESS NOTE Hospital Day:4 Author; CAMILLE ROBLERO MD Attending Physician:Madeline Weaver MD Interval Hx: Hct jania to 19 yesterday, transfused 1 unit PRBCs with appropriate increase i n Hct. Pt reports pain controlled with MELANGEUR OPERATOR. Scant vaginal bleeding, more like vaginal discharge [...] fibroid. Vaginal bleeding currently resolved. Recommendations regarding Experimental Mechanic Electrical issues: 1) Pelvic u/s done today to further evaluate anatomy and aid operative assessment; will con thermal surfacing machine operator MRI if indicated - report pending. Await [...] Deltoid Biceps Triceps Wrist Ext Digit Abd Wearing Apparel Presser - - - Intact 0 Intact - [...] 1U pR BCs. Pain well-controlled on Dilaudid MELANGEUR OPERATOR, monitoring H/H. Distal signals intact in left [...] Out: UOP: 30-50 ml/hr Pain control: Dilaudid MELANGEUR OPERATOR Current hospital medications: acetaminophen (aka TYLENOL) tablet [...] Units/hr at 11/09/08 1400 HYDROmorphone 0.5 mg/mL MELANGEUR OPERATOR infusion (ADULT, Pyxis) , , Intravenous, CONTINUOUS, [...] acute neurologic issues, pain well-controlled on Dilaudid MELANGEUR OPERATOR, resting comfortabl y post-op. Distal movement of [...] history of increased bleed over past month, SCRAPE GATHERER consulted and started proge sterone, performed endometrial [...] morning, pain is adequately controlled on dilaudid MELANGEUR OPERATOR. L radial artery has had consistent signal [...] EBL in OR yesterday Pain control: Dilaudid MELANGEUR OPERATOR with doses of 0.1mg Current hospital medications: [...] Units/hr at 11/09/08 1400 HYDROmorphone 0.5 mg/mL MELANGEUR OPERATOR infusion (ADULT, Pyxis) , , Intravenous, CONTINUOUS, [...] and oriented. Pain adequately controlled on dilaudid MELANGEUR OPERATOR with 0.1 mg dosin g. Distal movement [...] admission, likely related to vaginal bleeding - telegraphic typewriter operator following. 1U PRBCs ordered by vascular team [...] dressing changes and examinations. O: AF/VSS, see Willard note for extensive documentation regarding wound care [...] 1) Transfuse 1U for anemia 2) Appreciate field collector/onc management of intrauterine bleeding. Uterine artery embolization i f necessary for acute bleed. 3) Continue daily dressing changes of fasciotomies and surgical incisions per vascular flores rgery. 4) Appreciate SICU team active management of ongoing critical care issues. Avery Almazan MS, MD Neurological Surgery, PGY-1 [phone] 3) Nasra Gaona Md - 11/09/2008 7:01 [...] Units/hr at 11/09/08 06 HYDROmorphone 0.5 mg/mL MELANGEUR OPERATOR infusion (ADULT, Pyxis) , , Intravenous, CONTINUOUS, [...] fascio tomies. 1) F/u uterine mass bx, field collector team contining to follow pt for extensive [...] vaginal bleeding overnight, pain well-controlled on Dilaudid MELANGEUR OPERATOR , monitoring H/H. Distal signals intact in [...] EBL in OR yesterday Pain control: Dilaudid MELANGEUR OPERATOR with doses of 0.1mg Current hospital medications: [...] Units/hr at 11/09/08 1400 HYDROmorphone 0.5 mg/mL MELANGEUR OPERATOR infusion (ADULT, Pyxis) , , Intravenous, CONTINUOUS, [...] acute neurologic issues, pain well-controlled on Dilaudid MELANGEUR OPERATOR, resting comfortabl y post-op. Distal movement of [...] history of increased bleed over past month, SCRAPE GATHERER consulted and started proge sterone, performed endometrial [...] 400 Units/hr, Intravenous, CONTINUOUS HYDROmorphone 0.5 mg/mL MELANGEUR OPERATOR infusion (ADULT, Pyxis) , , Intravenous, CONTINUOUS HYDROmorphone MELANGEUR OPERATOR infusion, , , insulin regular 1 unit/mL [...] endometrial bio psy. Neuro: pain control via MELANGEUR OPERATOR. Resp: Mobilize. CV: Permissive HTN. Keep SBP btw 120s-160s. Give fluids before pressors. GI/Hep: Stable. Ok for clears. Will advance in am. Vasc: Will cont to assess hand. Pt may need amputation in future, but will allow time for hand to declare itself. Cont heparin at 400U/hr. No need for PTT. Renal: Good UOP. Cont jefferson. Heme: Vag bleeding - Pt followed by Experimental Mechanic Electrical. Per Experimental Mechanic Electrical if pt has significant rebleed Angio/IR em bolization of uterine artery vs hysterectomy. Will discuss role of imaging (MRI) to aid Experimental Mechanic Electrical management as concern exists for poss sarcoma vs fibroid. Transfuse as needed. ID: Afebrile, +leukocytosis. Will cont to monitor. Will not start abx at this time. Dispo: Cont ICU care. Sam Niño M.D. General Surgery Resident [facility] Pager: [phone] Jhon Peter MD - 11/08/2008 5:54 PM [...] ry of increased bleed over past month, SCRAPE GATHERER consulted and recommended progesterone - will per [...] the resident s note. NAGA CHANG MD exposure machine operator Trauma/Critical Care Misbah Wheat MD - 11/07/2008 [...] of heparin through the catheter and ask SCRAPE GATHERER to see her. We will stop the [...] 20 mEq/L IV, , Intravenous, CONTINUOUS, Avery Almaazn MD, Last Rate: 75 mL/hr (11/07/08 1510) ondansetron (aka ZOFRAN) injection 4 mg, 4 mg, Intravenous, Q12H PRN, Avery Almazan MD oxycodone immediate release (aka ROXICODONE) tablet 5-15 mg, 5-15 mg, Oral, Q4H PRN, aSndra Almazan MD, Last Dose: 5 mg at [...] Avery Almazan MS, MD Neurological Surgery, PGY-1 [phone] Eduardo Carias - 10/2008 2:41 PM PDTTransthoracic echocardiogram completed. Final report to follow. 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 Pager #[phone] signed by Tasha Lopez at 11/07/2008 9:07 [...] Deltoid Biceps Triceps Wrist Ext Digit Abd Wearing Apparel Presser - 5 5 5 5 4 - [...] | + +--------+ + + + | IA MYOMECTOMY | Routin | 04/05/2015 | | [...] 12:25 PM PST)PROCEDURE NOTE (04/05/2015 12:15 PM PST)IA MYOMECTOMY 1-4,W/TOT 250GMS/<,ABD APPRCH (04/05/2015 12:12 PM PST)ANESTHESIA/SEDATION (12/06/2008 10:10 AM PDT) + + + | Narrative | Performed At | + + + | A scan was | | | deleted from the Results section by P Interface [[id number]] on | | | 12/06/2008 at 10:10 AM (File: [id number]) | | + + + PATHOLOGY (12/06/2008 10:10 AM PDT) + + + | Narrative | Performed At | + + + | A scan was | | | deleted from the Results section by [employer] [[id number]] on | | | 12/06/2008 at 10:10 AM (File: [id number]) | | + + + RADIOLOGY (12/06/2008 10:10 AM PDT) + + + | Narrative | Performed At | + + + | A scan was | | | deleted from the Results section by [employer] Interface [[id number]] on | | | 12/06/2008 at 10:10 AM (File: [id number]) | | + + + ANESTHESIA/SEDATION (12/06/2008 10:09 AM PDT) + + + | Narrative | Performed At | + + + | A scan was | | | deleted from the Results section by [employer] [[id number]] on | | | 12/06/2008 at 10:09 AM (File: [id number]) | | + + + ANESTHESIA/SEDATION (12/06/2008 10:09 AM PDT) + + + | Narrative | Performed At | + + + | A scan was | | | deleted from the Results section by [employer] [[id number]] on | | | 12/06/2008 at 10:09 AM (File: [id number]) | | + + + ANESTHESIA/SEDATION (12/06/2008 10:09 AM PDT) + + + | Narrative | Performed At | + + + | A scan was | | | deleted from the Results section by [employer] [[id number]] on | | | 12/06/2008 at 10:09 AM (File: [id number]) | | + + + ANESTHESIA/SEDATION (12/06/2008 10:09 AM PDT) + + + | Narrative | Performed At | + + + | A scan was | | | deleted from the Results section by [employer] [[id number]] on | | | 12/06/2008 at 10:09 AM (File: [id number]) | | + + + ANESTHESIA/SEDATION (12/06/2008 10:09 AM PDT) + + + | Narrative | Performed At | + + + | A scan was | | | deleted from the Results section by [employer] [[id number]] on | | | 12/06/2008 at 10:09 AM (File: [id number]) | | + + + ANESTHESIA/SEDATION (12/06/2008 10:09 AM PDT) + + + | Narrative | Performed At | + + + | A scan was | | | deleted from the Results section by [employer] [[id number]] on | | | 12/06/2008 at 10:09 AM (File: [id number]) | | + + + ANESTHESIA/SEDATION (12/06/2008 10:09 AM PDT) + + + | Narrative | Performed At | + + + | | | + + + ANESTHESIA/SEDATION (12/06/2008 10:09 AM PDT) + + + | Narrative | Performed At | + + + | A scan was | | | deleted from the Results section by [employer] [[id number]] on | | | 12/06/2008 at 10:09 AM (File: [id number]) | | + + + ANESTHESIA/SEDATION (12/06/2008 10:09 AM PDT) + + + | Narrative | Performed At | + + + | A scan was | | | deleted from the Results section by [employer] [[id number]] on | | | 12/06/2008 at 10:09 AM (File: [id number]) | | + + + ANESTHESIA/SEDATION (12/06/2008 10:09 AM PDT) + + + | Narrative | Performed At | + + + | A scan was | | | deleted from the Results section by [employer] [[id number]] on | | | 12/06/2008 at 10:09 AM (File: [id number]) | | + + + ANESTHESIA/SEDATION (12/06/2008 10:09 AM PDT) + + + | Narrative | Performed At | + + + | A scan was | | | deleted from the Results section by [employer] [[id number]] on | | | 12/06/2008 at 10:09 AM (File: [id number]) | | + + + ANESTHESIA/SEDATION (12/06/2008 10:09 AM PDT) + + + | Narrative | Performed At | + + + | A scan was | | | deleted from the Results section by [employer] [[id number]] on | | | 12/06/2008 at 10:09 AM (File: [id number]) | | + + + TRANSTHORACIC ECHOCARDIOGRAM, ADULT (12/06/2008 10:08 AM PDT) + + + | Narrative | Performed At | + + + | A scan was | | | deleted from the Results section by [employer] [[id number]] on | | | 12/06/2008 at 10:08 AM (File: [id number]) | | + + + INR (12/04/2008 [...] DEPARTMENT OF | [address] | [place] [address] | | | PATHOLOGY | [address] | | | + + + + + | [facility] DEPARTMENT OF | [address] | [place] [address] | | | PATHOLOGY | [address] [...] | + + + + + | [facility] | [address] | [place] [address] | | | PATHOLOGY | [address] | | | + + + + + | [facility] | [address] | [place] [address] | | | PATHOLOGY | [address] [...] | + + + + + | [facility] DEPARTMENT OF | [address] | [place] [address] | | | PATHOLOGY | [address] | | | + + + + + | [facility] DEPARTMENT OF | [address] | [place] [address] | | | PATHOLOGY | [address] [...] | + + + + + | [facility] DEPARTMENT OF | [address] | [place] [address] | | | PATHOLOGY | [address] | | | + + + + + | [facility] DEPARTMENT OF | [address] | [place] [address] | | | PATHOLOGY | [address] [...] | + + + + + | [facility] DEPARTMENT OF | [facility] | [place] [address] | | | PATHOLOGY | [address] | | | + + + + + | [facility] DEPARTMENT OF | [address] | [place] [address] | | | PATHOLOGY | [address] [...] | + + + + + | [facility] | [address] | [place] [address] | | | PATHOLOGY | [address] | | | + + + + + | [facility] | [address] | [place] [address] | | | PATHOLOGY | [address] [...] | + + + + + | [facility] | [facility] | [place] [address] | | | PATHOLOGY | [address] | | | + + + + + | [facility] DEPARTMENT | [address] [place] [address] | [place] [address] | | | PATHOLOGY | [address] [...] | + + + + + | [facility] | [address] | [place] [address] | | | PATHOLOGY | [address] | | | + + + + + | [facility] DEPARTMENT | [address] | [place] [address] | | | PATHOLOGY | [address] [...] | + + + + + | [facility] | [address] | [place] [address] | | | PATHOLOGY | [address] | | | + + + + + | [facility] | [address] | [place] [address] | | | PATHOLOGY | [address] [...] DEPARTMENT OF | [address] | [place] [address] | | | PATHOLOGY | [address] | | | + + + + + | [facility] DEPARTMENT OF | [address] | [place] [address] | | | PATHOLOGY | [address] [...] | + + + + + | [facility] | [address] [place] [address] | [place] [address] | | | PATHOLOGY | [address] | | | + + + + + | [facility] | [address] [place] [address] | [place] [address] | | | PATHOLOGY | [address] [...] DEPARTMENT OF | [address] | [place] [address] | | | PATHOLOGY | [address] | | | + + + + + | [facility] DEPARTMENT OF | [address] | [place] [address] | | | PATHOLOGY | [address] [...] + | [facility] DEPARTMENT OF | [address] | [place] [address] | | | PATHOLOGY | [address] | | | + + + + + | [facility] DEPARTMENT OF | [address] | [place] [address] | | | PATHOLOGY | [address] [...] | + + + + + | [facility] | [address] [place] [address] | [place] [address] | | | PATHOLOGY | [address] | | | + + + + + | [facility] | [address] [place] [address] | [place] [address] | | | PATHOLOGY | [address] [...] | + + + + + | [facility] | [address] | [place] [address] | | | PATHOLOGY | [address] | | | + + + + + | [facility] DEPARTMENT | [address] | [place] [address] | | | PATHOLOGY | [address] [...] | + + + + + | [facility] DEPARTMENT OF | [address] | [place] [address] | | | PATHOLOGY | [address] | | | + + + + + | [facility] DEPARTMENT OF | [address] | [place] [address] | | | PATHOLOGY | [address] [...] | + + + + + | [facility] | [address] | [place] [address] | | | PATHOLOGY | [address] | | | + + + + + | [facility] | [address] | [place] [address] | | | PATHOLOGY | [address] [...] | + + + + + | [facility] | [address] [place] [address] | [place] [address] | | | PATHOLOGY | [address] | | | + + + + + | [facility] | [address] [place] [address] | [place] [address] | | | PATHOLOGY | [address] [...] DEPARTMENT OF | [address] | [place] [address] | | | PATHOLOGY | [address] | | | + + + + + | [facility] DEPARTMENT OF | [address] | [place] [address] | | | PATHOLOGY | [address] [...] | + + + + + | [facility] DEPARTMENT OF | [facility] | [place] [address] | | | PATHOLOGY | [address] | | | + + + + + | [facility] DEPARTMENT OF | [address] | [place] [address] | | | PATHOLOGY | [address] [...] | + + + + + | [facility] | [address] | [place] [address] | | | PATHOLOGY | [address] | | | + + + + + | [facility] | [address] | [place] [address] | | | PATHOLOGY | [address] [...] | + + + + + | [facility] | [facility] | [place] [address] | | | PATHOLOGY | [address] | | | + + + + + | [facility] DEPARTMENT OF | [facility] | [place] [address] | | | PATHOLOGY | [address] [...] + + | [facility] DEPARTMENT OF | [address] | [place] [address] | | | PATHOLOGY | [address] | | | + + + + + | [facility] DEPARTMENT OF | [address] | [place] [address] | | | PATHOLOGY | [address] | | | + + + + + MAGNESIUM, PLASMA (11/30/2008 5:36 AM PDT) + +-------+ + + + | Component | Value | Ref Range | Performed | Pathologist | | | | | At | Signature | + +-------+ + + + | MAGNESIUM,P | 2.1 | 1.8 - 2.5 mg/dL | [facility] | | | LASMA | | | [...] | + + + + + | [facility] | [address] | [place] [address] | | | PATHOLOGY | [address] | | | + + + + + | [facility] | [facility] [address] | [place] [address] | | | PATHOLOGY | [address] [...] DEPARTMENT OF | [address] | [place] [address] | | | PATHOLOGY | [address] | | | + + + + + | [facility] DEPARTMENT OF | [address] | [place] [address] | | | PATHOLOGY | [address] [...] | | | TEST RESULT | into [facility]. | | DEPARTMENT | | | | | | OF | | | | | | PATHOLOGY | | + + + + + + | REFERRAL | Test performed by AMALIA | | [facility] | | | LAB NAME | [id number] | | DEPARTMENT | | | | [place] [address] | | OF | | | | [phone]. | | PATHOLOGY | | | | [...] DEPARTMENT OF | [address] | [place] [address] | | | PATHOLOGY | [address] | | | + + + + + | [facility] | [address] | [place] [address] | | | PATHOLOGY | [address] [...] Way Lab) | DEPARTMENT OF | | [facility] [address] | PATHOLOGY | | [place] [address] | | + + + + + + + + | Performing | Address | City/State/Zipcode | Phone Number | | Organization | | | | + + + + + | [facility] DEPARTMENT OF | [address] | [place] [address] | | | PATHOLOGY | [address] | | | + + + + + | [facility] DEPARTMENT OF | [address] | [place] [address] | | | PATHOLOGY | [address] [...] | + + + + + | [facility] | [address] [place] [address] | [place] [address] | | | PATHOLOGY | [address] | | | + + + + + | [facility] DEPARTMENT | [address] [place] [address] | [place] [address] | | | PATHOLOGY | [address] [...] 0.96Comment: Published | 0.82 - 1.54 | [facility] | | | ACTIVITY | reference ranges for | U/mL | DEPARTMENT | | | | children less than 6 mos | | OF | | | | can befound in the | | PATHOLOGY | | | | Hemostasis Section | | | | | | general instructions of | | | | | | the [facility] LabManual: | | | | | | [email or web address] | | | | | | [email or web address] | | | | + + + + + + + + | Specimen | + + | Blood - Blood | + + + + + + + | Performing | Address | City/State/Zipcode | Phone Number | | Organization | | | | + + + + + | [facility] DEPARTMENT OF | [address] | [place] [address] | | | PATHOLOGY | [address] | | | + + + + + | [facility] | [address] | [place] [address] | | | PATHOLOGY | [address] [...] by | | | | | | Quotefish,[address] | | | | | | Zia Pearson, [facility],[place] | | | | | | [id number] | | | | | | [phone]. | | | | | | Lizbet [...] | + + + + + | [facility] | [address] | [place] [address] | | | PATHOLOGY | [address] [...] [address] Lab) | DEPARTMENT OF | | [facility] | PATHOLOGY | | [address] | | | [place] [address] | | + + + + + + + + | Performing | Address | City/State/Zipcode | Phone Number | | Organization | | | | + + + + + | [facility] | [address] | [place] [address] | | | PATHOLOGY | [address] | | | + + + + + | [facility] | [address] [place] [address] | [place] [address] | | | PATHOLOGY | [address] [...] | DEPARTMENT OF | | [facility]) [facility] | PATHOLOGY | | [address] | | | [place] [address] | | + + + + + + + + | Performing | Address | City/State/Zipcode | Phone Number | | Organization | | | | + + + + + | [facility] DEPARTMENT OF | [facility] | [place] [address] | | | PATHOLOGY | [address] | | | + + + + + | [facility] DEPARTMENT OF | [facility] | [place] [address] | | | PATHOLOGY | [address] [...] nucleotide | | | | | | [id number]. Please note | | | | | | that thisassay only | | | | | | detects the [id number] | | | | | | point [...] of | | | | | | [id number] mutation in | | | | | [...] prothrombin | | | | | | [id number] mutation | | | | | | constitute approximately | | | | | | 2%of the normal white | | | | | | population(1,2). | | | | + + + + + + | DNA FOOTER | References: 1.) Addis et | | | | | | al. Blood 88, | | | | | | [id number] (1995). 2.) | | | | | [...] | | | | | determined bythe [facility] | | | | | | DNA [...] | | | | | 1987. The [facility] DNA | | | | | | [...] | + + + + + | [facility] | [address] | [place] [address] | | | PATHOLOGY | [address] [...] | | | | | determined bythe [facility] | | | | | | DNA [...] | | | | | 1987. The [facility] DNA | | | | | | [...] 88: | | | | | | [phone]). Should this | | | | | [...] [facility] DEPARTMENT | [address] | [place] [address] | | | PATHOLOGY | [address] [...] | + + + + + | [facility] | [facility] | [place] [address] | | | PATHOLOGY | [address] | | | + + + + + | [facility] | [address] | [place] [address] | | | PATHOLOGY | [address] [...] | + + + + + | [facility] DEPARTMENT | [address] | [place] [address] | | | PATHOLOGY | [address] | | | + + + + + | [facility] DEPARTMENT OF | [address] | [place] [address] | | | PATHOLOGY | [address] [...] | + + + + + | [facility] DEPARTMENT OF | [address] | [place] [address] | | | PATHOLOGY | [address] | | | + + + + + | [facility] DEPARTMENT OF | [address] | [place] [address] | | | PATHOLOGY | [address] [...] | + + + + + | [facility] DEPARTMENT OF | [address] | [place] [address] | | | PATHOLOGY | [address] | | | + + + + + | [facility] | [address] | [place] [address] | | | PATHOLOGY | [address] [...] + + | [facility] DEPARTMENT OF | [address] | [place] [address] | | | PATHOLOGY | [address] | | | + + + + + | [facility] DEPARTMENT OF | [address] | [place] [address] | | | PATHOLOGY | [address] [...] | + + + + + | [facility] | [address] | [place] [address] | | | PATHOLOGY | [address] | | | + + + + + | [facility] | [address] | [place] [address] | | | PATHOLOGY | [address] [...] | + + + + + | [facility] | [address] | [place] [address] | | | PATHOLOGY | [address] | | | + + + + + | [facility] | [facility] | [place] [address] | | | PATHOLOGY | [address] [...] | + + + + + | [facility] | [facility] | [place] [address] | | | PATHOLOGY | [address] | | | + + + + + | [facility] | [address] | [place] [address] | | | PATHOLOGY | [address] [...] | + + + + + | [facility] | [address] | [place] [address] | | | PATHOLOGY | [address] | | | + + + + + | [facility] | [address] | [place] [address] | | | PATHOLOGY | [address] [...] | + + + + + | [facility] DEPARTMENT OF | [address] | [place] [address] | | | PATHOLOGY | [address] | | | + + + + + | [facility] DEPARTMENT OF | [address] | [place] [address] | | | PATHOLOGY | [address] [...] | + + + + + | [facility] DEPARTMENT OF | [address] | [place] [address] | | | PATHOLOGY | [address] | | | + + + + + | [facility] DEPARTMENT OF | [address] | [place] [address] | | | PATHOLOGY | [address] [...] | + + + + + | [facility] DEPARTMENT OF | [facility] | [place] [address] | | | PATHOLOGY | [address] | | | + + + + + | [facility] DEPARTMENT OF | [facility] | [place] [address] | | | PATHOLOGY | [address] [...] | + + + + + | [facility] | [address] | [place] [address] | | | PATHOLOGY | [address] | | | + + + + + | [facility] | [address] | [place] [address] | | | PATHOLOGY | [address] [...] | + + + + + | [facility] DEPARTMENT OF | [address] | [place] [address] | | | PATHOLOGY | [address] | | | + + + + + | [facility] DEPARTMENT OF | [address] | [place] [address] | | | PATHOLOGY | [address] [...] | + + + + + | [facility] | [address] | [place] [address] | | | PATHOLOGY | [address] [...] | + + + + + | [facility] | [address] | [place] [address] | | | PATHOLOGY | [address] [...] | + + + + + | [facility] | [address] [place] [address] | [place] [address] | | | PATHOLOGY | [address] | | | + + + + + | [facility] | [facility] | [place] [address] | | | PATHOLOGY | [address] [...] | + + + + + | [facility] | [address] | [place] [address] | | | PATHOLOGY | [address] | | | + + + + + | [facility] DEPARTMENT OF | [address] | [place] [address] | | | PATHOLOGY | [address] [...] | + + + + + | [facility] | [address] [place] [address] | [place] [address] | | | PATHOLOGY | [address] | | | + + + + + | [facility] | [address] | [place] [address] | | | PATHOLOGY | [address] [...] | + + + + + | [facility] DEPARTMENT OF | [address] | [place] [address] | | | PATHOLOGY | [address] | | | + + + + + | [facility] DEPARTMENT OF | [address] | [place] [address] | | | PATHOLOGY | [address] [...] | + + + + + | [facility] DEPARTMENT OF | [address] | [place] [address] | | | PATHOLOGY | [address] | | | + + + + + | [facility] DEPARTMENT OF | [address] | [place] [address] | | | PATHOLOGY | [address] [...] | + + + + + | [facility] DEPARTMENT OF | [address] | [place] [address] | | | PATHOLOGY | [address] | | | + + + + + | [facility] DEPARTMENT OF | [address] | [place] [address] | | | PATHOLOGY | [address] [...] | + + + + + | [facility] | [address] | [place] [address] | | | PATHOLOGY | [address] | | | + + + + + | [facility] | [address] [place] [address] | [place] [address] | | | PATHOLOGY | [address] [...] DEPARTMENT OF | [address] | [place] [address] | | | PATHOLOGY | [address] | | | + + + + + | [facility] DEPARTMENT OF | [address] | [place] [address] | | | PATHOLOGY | [address] [...] | + + + + + | [facility] DEPARTMENT | [address] | [place] [address] | | | PATHOLOGY | [address] | | | + + + + + | [facility] | [address] | [place] [address] | | | PATHOLOGY | [address] [...] | + + + + + | [facility] DEPARTMENT OF | [address] | [place] [address] | | | PATHOLOGY | [address] | | | + + + + + | [facility] DEPARTMENT OF | [address] | [place] [address] | | | PATHOLOGY | [address] [...] | + + + + + | [facility] DEPARTMENT OF | [address] | [place] [address] | | | PATHOLOGY | [address] | | | + + + + + | [facility] DEPARTMENT OF | [address] | [place] [address] | | | PATHOLOGY | [address] | | | + + + + + PHOSPHORUS, PLASMA (11/26/2008 6:47 AM PDT) + +-------+ + + + | Component | Value | Ref Range | Performed | Pathologist | | | | | At | Signature | + +-------+ + + + | PHOSPHORUS, | 3.9 | 2.4 - 4.7 mg/dL | [facility] | | | PLASMA | | | [...] | + + + + + | [facility] DEPARTMENT OF | [facility] | [place] [address] | | | PATHOLOGY | [address] | | | + + + + + | [facility] DEPARTMENT OF | [address] | [place] [address] | | | PATHOLOGY | [address] | | | + + + + + OPERATION RECORD (11/26/2008 12:00 AM PDT) + + + | Narrative | Performed At | + + + | [id number] | | | [id number] | | | [id number] [address] | | | [place] [id number] | | | Date: 11/27/2008 Attending | | | Surgeon: Misbah Quijano M.D. | | | School Bus Technician(s): Yvette Torres | | | Aguilar Paula [...] well. | | | MISBAH QUIJANO MD exposure machine operator [facility] / [id number] | | | / [id number] / [id number] / | | | | | + + + + + | Procedure Note | + + | Misbah Qiujano MD - 11/27/2008 12:00 AM PDT [id number] | | [id number] [address] | | [id number] Date: 11/27/2008 Attending Surgeon: Misbah | | Renu Quijano M.D. School Bus Technician(s): Yvette Paula M.D. | | Preoperative Diagnosis(es):Open [...] MISBAH QUIJANO MDProfessor of Surgery GLM / [id number] | | / [id number] / [id number] / T: 11/27/2008 | |Anesthesia: | |General [...] | | | |MISBAH QUIJANO MD | |exposure machine operator | | | | | |GLM / HS | |[id number] / [id number] / 69639 / | | | | | | [...] DEPARTMENT OF | [address] | [place] [address] | | | PATHOLOGY | [address] | | | + + + + + | [facility] DEPARTMENT OF | [address] | [place] [address] | | | PATHOLOGY | [address] | | | + + + + + MAGNESIUM, PLASMA (11/25/2008 6:40 AM PDT) + +-------+ + + + | Component | Value | Ref Range | Performed | Pathologist | | | | | At | Signature | + +-------+ + + + | MAGNESIUM,P | 2.2 | 1.8 - 2.5 mg/dL | [facility] | | | LASMA | | | [...] | + + + + + | [facility] | [address] | [place] [address] | | | PATHOLOGY | [address] | | | + + + + + | [facility] | [address] | [place] [address] | | | PATHOLOGY | [address] [...] | + + + + + | [facility] DEPARTMENT | [address] | [place] [address] | | | PATHOLOGY | [address] | | | + + + + + | [facility] DEPARTMENT OF | [address] | [place] [address] | | | PATHOLOGY | [address] [...] | + + + + + | [facility] | [address] | [place] [address] | | | PATHOLOGY | [address] | | | + + + + + | [facility] | [address] | [place] [address] | | | PATHOLOGY | [address] [...] | + + + + + | [facility] | [address] | [place] [address] | | | PATHOLOGY | [address] | | | + + + + + | [facility] | [facility] [address] | [place] [address] | | | PATHOLOGY | [address] [...] | + + + + + | [facility] DEPARTMENT OF | [address] | [place] [address] | | | PATHOLOGY | [address] | | | + + + + + | [facility] DEPARTMENT OF | [address] | [place] [address] | | | PATHOLOGY | [address] [...] (H) | 60 - 99 mg/dL | [facility] | | | PLASMA | | | [...] | + + + + + | [facility] | [address] | [place] [address] | | | PATHOLOGY | [address] | | | + + + + + | [facility] | [address] | [place] [address] | | | PATHOLOGY | [address] | | | + + + + + PHOSPHORUS, PLASMA (11/24/2008 7:05 AM PDT) + +-------+ + + + | Component | Value | Ref Range | Performed | Pathologist | | | | | At | Signature | + +-------+ + + + | PHOSPHORUS, | 3.0 | 2.4 - 4.7 mg/dL | [facility] | | | PLASMA | | | [...] | + + + + + | [facility] DEPARTMENT OF | [address] | [place] [address] | | | PATHOLOGY | [address] | | | + + + + + | [facility] DEPARTMENT OF | [address] | [place] [address] | | | PATHOLOGY | [address] [...] DEPARTMENT OF | [address] | [place] [address] | | | PATHOLOGY | [address] | | | + + + + + | [facility] DEPARTMENT | [address] | [place] [address] | | | PATHOLOGY | [address] [...] | + + + + + | [facility] | [address] | [place] [address] | | | PATHOLOGY | [address] | | | + + + + + | [facility] | [facility] | [place] [address] | | | PATHOLOGY | [address] [...] | + + + + + | [facility] DEPARTMENT OF | [address] | [place] [address] | | | PATHOLOGY | [address] | | | + + + + + | [facility] DEPARTMENT OF | [address] | [place] [address] | | | PATHOLOGY | [address] [...] (H) | 60 - 99 mg/dL | [facility] | | | PLASMA | | | [...] | + + + + + | [facility] | [address] | [place] [address] | | | PATHOLOGY | [address] | | | + + + + + | [facility] | [address] | [place] [address] | | | PATHOLOGY | [address] [...] | + + + + + | [facility] | [address] | [place] [address] | | | PATHOLOGY | [address] | | | + + + + + | [facility] | [facility] | [place] [place] [address] | | | PATHOLOGY | [address] [...] + + + + | PRODUCT | [id number] | | [facility] | | | UNIT [...] | + + + + + | [facility] | [address] [place] [address] | [place] [address] | | | PATHOLOGY | [address] | | | + + + + + | [facility] | [address] [place] [address] | [place] [address] | | | PATHOLOGY | [address] [...] + + + + | PRODUCT | [id number] | | [facility] | | | UNIT [...] | + + + + + | [facility] | [address] | [place] [address] | | | PATHOLOGY | [address] | | | + + + + + | [facility] | [address] | [place] [address] | | | PATHOLOGY | [address] [...] + + + + | PRODUCT | [id number] | | [facility] | | | UNIT [...] | + + + + + | [facility] DEPARTMENT OF | [address] | [place] [address] | | | PATHOLOGY | [address] | | | + + + + + | [facility] DEPARTMENT OF | [address] | [place] [address] | | | PATHOLOGY | [address] [...] + + + + | PRODUCT | [id number] | | [facility] | | | UNIT [...] | + + + + + | [facility] | [address] | [place] [address] | | | PATHOLOGY | [address] | | | + + + + + | [facility] | [address] | [place] [address] | | | PATHOLOGY | [address] [...] | + + + + + | [facility] DEPARTMENT OF | [address] | [place] [address] | | | PATHOLOGY | [address] | | | + + + + + | [facility] | [address] | [place] [address] | | | PATHOLOGY | [address] [...] | + + + + + | [facility] DEPARTMENT OF | [address] | [place] [address] | | | PATHOLOGY | [address] | | | + + + + + | [facility] DEPARTMENT OF | [address] | [place] [address] | | | PATHOLOGY | [address] [...] + | [facility] DEPARTMENT OF | [address] | [place] [address] | | | PATHOLOGY | [address] | | | + + + + + | [facility] DEPARTMENT OF | [address] | [place] [address] | | | PATHOLOGY | [address] [...] | + + + + + | [facility] DEPARTMENT OF | [address] | [place] [address] | | | PATHOLOGY | [address] | | | + + + + + | [facility] DEPARTMENT OF | [address] | [place] [address] | | | PATHOLOGY | [address] | | | + + + + + OPERATION RECORD (11/22/2008 12:00 AM PDT) + + + | Narrative | Performed At | + + + | [id number] | | | [id number] | | | [id number] [address] | | | [place] [id number] | | | Date: 11/23/2008 Attending | | | Surgeon: Avery Lee M.D. | | | School Bus Technician(s): Preoperative Diagnosis(es): Submucous uterine | | | [...] by placing a weighted speculum in a [place], the cervix could be | | | [...] | Avery Lee M.D. SUPRIYA / VONNIE [id number] / [id number] / | | | [address] / | | + + + + + | Procedure Note | + + | Avery Lee MD - 11/23/2008 12:00 AM PDT [id number] | | [id number] [address]IO TEAGUE | | [id number] Date: 11/23/2008 Attending Surgeon: Avery | | Juan Lee M.D. School Bus Technician(s): Preoperative Diagnosis(es):Submucous uterine leiomyoma | | with [...] cc. | | Avery Lee M.D.SUPRIYA / [id number] / [id number] / 17572 / T: 11/24/2008 | | | |Indications: [...] Lee M.D. | |JTJ / HS | |[id number] / [id number] / 84402 / | | | | | | | | | | | | | | | | | | | | | + + OPERATION RECORD (11/22/2008 12:00 AM PDT) + + + | Narrative | Performed At | + + + | [id number] | | | [id number] | | | [id number] [address] | | | [place] [id number] | | | Date: 11/21/2008 Attending | | | Surgeon: Jhon Cabello M.D. | | | School Bus Technician(s): Misbah Benton | | | Aguilar Preoperative [...] M.D. | | | GDB / HS [id number] / [id number] / 13376 / T: | | | 12/04/2008 | | + + + + + | Procedure Note | + + | Misbah Benton MD - 11/21/2008 12:00 AM PDT [id number] | | [id number] ELE[address] [place] | | [phone] Date: 11/21/2008 Attending Surgeon: | | Jhon Cabello M.D. School Bus Technician(s): Misbah Benton M.D. | | Preoperative Diagnosis(es):Left [...] | | Jhon Cabello M.D. DANA / [id number] / [id number] / 26635 / T: 12/04/2008 | | | |necessary [...] | | | | | |Dr. Jhon Caebllo was present and scrubbed for the duration of the | |procedure. | | | | | | | | | |Misbah Benton M.D. | | | | | | | | | |Jhon Cabello M.D. | | | | | |GDB / HS | |[id number] / [id number] / 13761 / | | | | | | [...] [facility] | | | | | | ([facility]) | | | | | | [place] | | | | | [facility] | | | | | | [address] | | | | | | [facility] | | | | | | [place] | | | | | | , [place] [address] | | | | + + + + + + + + | Specimen | + + | | + + + + + + + | Performing | Address | City/State/Zipcode | Phone Number | | Organization | | | | + + + + + | [facility] DEPARTMENT OF | [address] | [place] [address] | | | PATHOLOGY | [address] [...] + + + + | PRODUCT | [id number] | | [facility] | | | UNIT [...] | + + + + + | [facility] DEPARTMENT | [address] | [place] [address] | | | PATHOLOGY | [address] | | | + + + + + | [facility] | [facility] | [place] [address] | | | PATHOLOGY | [address] [...] + + + + | PRODUCT | [id number] | | [facility] | | | UNIT [...] | + + + + + | [facility] DEPARTMENT OF | [address] | [place] [address] | | | PATHOLOGY | [address] | | | + + + + + | [facility] DEPARTMENT OF | [address] | [place] [address] | | | PATHOLOGY | [address] [...] | + + + + + | [facility] DEPARTMENT OF | [address] | [place] [address] | | | PATHOLOGY | [address] | | | + + + + + | [facility] DEPARTMENT OF | [address] | [place] [address] | | | PATHOLOGY | [address] [...] DEPARTMENT OF | [address] | [place] [address] | | | PATHOLOGY | [address] | | | + + + + + | [facility] DEPARTMENT | [address] | [place] [address] | | | PATHOLOGY | [address] [...] | + + + + + | [facility] | [address] | [place] [address] | | | PATHOLOGY | [address] | | | + + + + + | [facility] | [address] [place] [address] | [place] [address] | | | PATHOLOGY | [address] [...] | + + + + + | [facility] DEPARTMENT OF | [address] | [place] [address] | | | PATHOLOGY | [address] | | | + + + + + | [facility] DEPARTMENT OF | [address] | [place] [address] | | | PATHOLOGY | [address] [...] | + + + + + | [facility] | [address] | [place] [address] | | | PATHOLOGY | [address] | | | + + + + + | [facility] | [address] | [place] [address] | | | PATHOLOGY | [address] | | | + + + + + OPERATION RECORD (11/21/2008 12:00 AM PDT) + + + | Narrative | Performed At | + + + | [id number] | | | [id number] | | | [id number] ELEUTERIO | | | KELLY [id number] | | | Date: 11/21/2008 Attending | | | Surgeon: Jhon Cabello M.D. | | | School Bus Technician(s): Ulysses Pena | | | Aguilar Preoperative [...] | Jhon Cabello M.D. ROSALEE / VONNIE [id number] / [id number] / [id number] / | | | C: 12/13/2008 sheron | | + + + + + | Procedure Note | + + | Jhon Cabello MD - 11/21/2008 12:00 AM PDT [id number] | | [id number] ELEUTERIO TEAGUE | | [id number] Date: 11/21/2008 Attending Surgeon: | | Jhon Cabello M.D. School Bus Technician(s): Ulysses Pena M.D. | | Preoperative Diagnosis(es):1. [...] stabilized. | | Jhon Cabello M.D.ROSALEE / [id number] / [id number] / [id number] / T: 12/13/2008C: | | 12/13/2008 dlinez [...] Cabello M.D. 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 | | | | | | [...] | + + + + + | [facility] | [address] | [place] [address] | | | PATHOLOGY | [address] | | | + + + + + | [facility] | [address] | [place] [address] | | | PATHOLOGY | [address] [...] | + + + + + | [facility] | [address] | [place] [address] | | | PATHOLOGY | [address] | | | + + + + + | [facility] | [address] | [place] [address] | | | PATHOLOGY | [address] [...] | + + + + + | [facility] | [facility] | [place] [address] | | | PATHOLOGY | [address] | | | + + + + + | [facility] DEPARTMENT OF | [facility] | [place] [address] | | | PATHOLOGY | [address] [...] | + + + + + | [facility] DEPARTMENT OF | [address] | [place] [address] | | | PATHOLOGY | [address] | | | + + + + + | [place] DEPARTMENT OF | [address] | [place] [address] | | | PATHOLOGY | [address] [...] | + + + + + | [facility] | [address] | [place] [address] | | | PATHOLOGY | [address] | | | + + + + + | [facility] | [address] | [place] [address] | | | PATHOLOGY | [address] [...] DEPARTMENT OF | [address] | [place] [address] | | | PATHOLOGY | [address] | | | + + + + + | [facility] DEPARTMENT OF | [address] | [place] [address] | | | PATHOLOGY | [address] | | | + + + + + PHOSPHORUS, PLASMA (11/19/2008 4:00 AM PDT) + +-------+ + + + | Component | Value | Ref Range | Performed | Pathologist | | | | | At | Signature | + +-------+ + + + | PHOSPHORUS, | 4.5 | 2.4 - 4.7 mg/dL | [facility] | | | PLASMA | | | [...] | + + + + + | [facility] DEPARTMENT OF | [address] | [place] [address] | | | PATHOLOGY | [address] | | | + + + + + | [facility] | [address] | [place] [address] | | | PATHOLOGY | [address] [...] | + + + + + | [facility] | [address] | [place] [address] | | | PATHOLOGY | [address] | | | + + + + + | [facility] | [address] | [place] [address] | | | PATHOLOGY | [address] [...] | + + + + + | [facility] | [address] | [place] [address] | | | PATHOLOGY | [address] | | | + + + + + | [facility] | [address] | [place] [address] | | | PATHOLOGY | [address] [...] | + + + + + | [facility] | [address] | [place] [address] | | | PATHOLOGY | [address] | | | + + + + + | [facility] | [address] | [place] [address] | | | PATHOLOGY | [address] [...] DEPARTMENT OF | [address] | [place] [address] | | | PATHOLOGY | [address] | | | + + + + + | [facility] DEPARTMENT | [address] | [place] [address] | | | PATHOLOGY | [address] [...] DEPARTMENT OF | [address] | [place] [address] | | | PATHOLOGY | [address] | | | + + + + + | [facility] DEPARTMENT OF | [address] | [place] [address] | | | PATHOLOGY | [address] [...] | + + + + + | [facility] | [facility] | [place] [address] | | | PATHOLOGY | [address] | | | + + + + + | [facility] DEPARTMENT OF | [facility] [facility] [facility] | [place] [address] | | | PATHOLOGY | [address] [...] DEPARTMENT OF | [address] | [place] [address] | | | PATHOLOGY | [address] | | | + + + + + | [facility] DEPARTMENT OF | [address] | [place] [address] | | | PATHOLOGY | [address] | | | + + + + + PHOSPHORUS, PLASMA (11/17/2008 4:29 AM PDT) + +-------+ + + + | Component | Value | Ref Range | Performed | Pathologist | | | | | At | Signature | + +-------+ + + + | PHOSPHORUS, | 2.9 | 2.4 - 4.7 mg/dL | [facility] | | | PLASMA | | | [...] | + + + + + | [facility] | [address] | [place] [address] | | | PATHOLOGY | [address] | | | + + + + + | [facility] | [address] | [place] [address] | | | PATHOLOGY | [address] [...] DEPARTMENT OF | [address] | [place] [address] | | | PATHOLOGY | [address] | | | + + + + + | [facility] DEPARTMENT | [address] | [place] [address] | | | PATHOLOGY | [address] [...] + | [facility] DEPARTMENT OF | [address] | [place] [address] | | | PATHOLOGY | [address] | | | + + + + + | [facility] DEPARTMENT OF | [address] | [place] [address] | | | PATHOLOGY | [address] [...] | + + + + + | [facility] DEPARTMENT OF | [address] | [place] [address] | | | PATHOLOGY | [address] | | | + + + + + | [facility] | [facility] | [place] [address] | | | PATHOLOGY | [address] [...] + + | [facility] DEPARTMENT OF | [address] | [place] [address] | | | PATHOLOGY | [address] | | | + + + + + | [facility] DEPARTMENT OF | [address] | [place] [address] | | | PATHOLOGY | [address] | | | + + + + + MAGNESIUM, PLASMA (11/16/2008 5:16 AM PDT) + +-------+ + + + | Component | Value | Ref Range | Performed | Pathologist | | | | | At | Signature | + +-------+ + + + | MAGNESIUM,P | 2.3 | 1.8 - 2.5 mg/dL | [facility] | | | LASMA | | | [...] | + + + + + | [facility] DEPARTMENT OF | [address] | [place] [address] | | | PATHOLOGY | [address] | | | + + + + + | [facility] | [address] | [place] [address] | | | PATHOLOGY | [address] [...] | + + + + + | [facility] | [address] | [place] [address] | | | PATHOLOGY | [address] | | | + + + + + | [facility] DEPARTMENT | [address] | [place] [address] | | | PATHOLOGY | [address] [...] | + + + + + | [facility] | [address] | [place] [address] | | | PATHOLOGY | [address] | | | + + + + + | [facility] | [address] [place] [address] | [place] [address] | | | PATHOLOGY | [address] [...] + + + + | PRODUCT | [id number] | | [facility] | | | UNIT [...] DEPARTMENT OF | [address] | [place] [address] | | | PATHOLOGY | [address] | | | + + + + + | [facility] DEPARTMENT OF | [address] | [place] [address] | | | PATHOLOGY | [address] [...] + + + + | PRODUCT | [id number] | | [facility] | | | UNIT [...] | + + + + + | [facility] DEPARTMENT OF | [address] | [place] [address] | | | PATHOLOGY | [address] | | | + + + + + | [facility] DEPARTMENT OF | [address] | [place] [address] | | | PATHOLOGY | [address] [...] | + + + + + | [facility] DEPARTMENT OF | [address] | [place] [address] | | | PATHOLOGY | [address] | | | + + + + + | [facility] DEPARTMENT OF | [address] | [place] [address] | | | PATHOLOGY | [address] [...] | + + + + + | [facility] DEPARTMENT | [address] | [place] [address] | | | PATHOLOGY | [address] | | | + + + + + | [facility] | [address] | [place] [address] | | | PATHOLOGY | [address] [...] DEPARTMENT OF | [address] | [place] [address] | | | PATHOLOGY | [address] | | | + + + + + | [facility] DEPARTMENT OF | [address] | [place] [address] | | | PATHOLOGY | [address] [...] | + + + + + | [facility] | [address] | [place] [address] | | | PATHOLOGY | [address] | | | + + + + + | [facility] | [address] | [place] [address] | | | PATHOLOGY | [address] [...] | + + + + + | [facility] | [address] | [place] [address] | | | PATHOLOGY | [address] [...] DEPARTMENT OF | [address] | [place] [address] | | | PATHOLOGY | [address] | | | + + + + + | [facility] DEPARTMENT | [address] | [place] [address] | | | PATHOLOGY | [address] [...] | + + + + + | [facility] | [address] | [place] [address] | | | PATHOLOGY | [address] | | | + + + + + | [facility] | [address] [place] [address] | [place] [address] | | | PATHOLOGY | [address] [...] DEPARTMENT OF | [address] | [place] [address] | | | PATHOLOGY | [address] | | | + + + + + | [facility] DEPARTMENT OF | [address] | [place] [address] | | | PATHOLOGY | [address] [...] (H) | 60 - 99 mg/dL | [facility] | | | PLASMA | | | [...] | + + + + + | [facility] | [address] | [place] [address] | | | PATHOLOGY | [address] | | | + + + + + | [facility] | [address] | [place] [address] | | | PATHOLOGY | [address] [...] | + + + + + | [facility] | [address] | [place] [address] | | | PATHOLOGY | [address] [...] | + + + + + | [facility] | [address] | [place] [address] | | | PATHOLOGY | [address] [...] RLB | | | | | | ([facility]) | | | | | | [place] | | | | | | [facility] [address] | | | | | | [address] [address] | | | | | | [facility], [place] | | | | | | [place] | | | | | | , [place] [address] | | | | + + + + + + + + | Specimen | + + | | + + + + + + + | Performing | Address | City/State/Zipcode | Phone Number | | Organization | | | | + + + + + | [facility] | [address] | [place] [address] | | | PATHOLOGY | [address] [...] | + + + + + | [facility] DEPARTMENT OF | [address] | [place] [address] | | | PATHOLOGY | [address] | | | + + + + + | [facility] DEPARTMENT OF | [address] | [place] [address] | | | PATHOLOGY | [address] [...] | + + + + + | [facility] DEPARTMENT OF | [address] | [place] [address] | | | PATHOLOGY | [address] | | | + + + + + | [facility] DEPARTMENT OF | [address] | [place] [address] | | | PATHOLOGY | [address] [...] | + + + + + | [facility] DEPARTMENT OF | [facility] | [place] [address] | | | PATHOLOGY | [address] | | | + + + + + | [facility] DEPARTMENT OF | [address] | [place] [address] | | | PATHOLOGY | [address] [...] DEPARTMENT OF | [address] | [place] [address] | | | PATHOLOGY | [address] | | | + + + + + | [facility] DEPARTMENT OF | [address] | [place] [address] | | | PATHOLOGY | [address] | | | + + + + + MAGNESIUM, PLASMA (11/13/2008 5:09 AM PDT) + +-------+ + + + | Component | Value | Ref Range | Performed | Pathologist | | | | | At | Signature | + +-------+ + + + | MAGNESIUM,P | 1.9 | 1.8 - 2.5 mg/dL | [facility] | | | LASMA | | | [...] | + + + + + | [facility] | [address] | [place] [address] | | | PATHOLOGY | [address] | | | + + + + + | [facility] | [address] | [place] [address] | | | PATHOLOGY | [address] [...] | + + + + + | [facility] DEPARTMENT OF | [address] | [place] [address] | | | PATHOLOGY | [address] | | | + + + + + | [facility] DEPARTMENT OF | [address] | [place] [address] | | | PATHOLOGY | [address] [...] | + + + + + | [facility] | [address] | [place] [address] | | | PATHOLOGY | [address] | | | + + + + + | [facility] | [address] | [place] [address] | | | PATHOLOGY | [address] [...] | + + + + + | [facility] DEPARTMENT OF | [address] | [place] [address] | | | PATHOLOGY | [address] | | | + + + + + | [facility] | [facility] [address] | [place] [address] | | | PATHOLOGY | [address] [...] | + + + + + | [facility] | [address] | [place] [address] | | | PATHOLOGY | [address] | | | + + + + + | [facility] | [address] | [place] [address] | | | PATHOLOGY | [address] [...] + | [facility] DEPARTMENT OF | [address] | [place] [address] | | | PATHOLOGY | [address] | | | + + + + + | [facility] DEPARTMENT OF | [address] | [place] [address] | | | PATHOLOGY | [address] [...] | + + + + + | [facility] DEPARTMENT OF | [address] | [place] [address] | | | PATHOLOGY | [address] | | | + + + + + | [facility] DEPARTMENT OF | [address] | [place] [address] | | | PATHOLOGY | [address] [...] | + + + + + | [facility] DEPARTMENT OF | [address] | [place] [address] | | | PATHOLOGY | [address] | | | + + + + + | [facility] DEPARTMENT | [address] | [place] [address] | | | PATHOLOGY | [address] [...] | + + + + + | [facility] | [address] | [place] [address] | | | PATHOLOGY | [address] | | | + + + + + | [facility] | [facility] | [place] [address] | | | PATHOLOGY | [address] [...] | + + + + + | [facility] DEPARTMENT OF | [address] | [place] [address] | | | PATHOLOGY | [address] | | | + + + + + | [facility] DEPARTMENT OF | [address] | [place] [address] | | | PATHOLOGY | [address] [...] DEPARTMENT OF | [address] | [place] [address] | | | PATHOLOGY | [address] | | | + + + + + | [facility] DEPARTMENT | [address] | [place] [address] | | | PATHOLOGY | [address] [...] + + + + | PRODUCT | [id number] | | [facility] | | | UNIT [...] | + + + + + | [facility] DEPARTMENT | [address] | [place] [address] | | | PATHOLOGY | [address] | | | + + + + + | [facility] | [address] | [place] [address] | | | PATHOLOGY | [address] [...] + + + + | PRODUCT | [id number] | | [facility] | | | UNIT [...] | + + + + + | [facility] DEPARTMENT OF | [address] | [place] [address] | | | PATHOLOGY | [address] | | | + + + + + | [facility] DEPARTMENT | [address] | [place] [address] | | | PATHOLOGY | [address] [...] | + + + + + | [facility] | [facility] | [place] [address] | | | PATHOLOGY | [address] | | | + + + + + | [facility] | [facility] [address] | [place] [address] | | | PATHOLOGY | [address] [...] | + + + + + | [facility] | [address] | [place] [address] | | | PATHOLOGY | [address] | | | + + + + + | [facility] | [address] [place] [address] | [place] [address] | | | PATHOLOGY | [address] [...] DEPARTMENT OF | [address] | [place] [address] | | | PATHOLOGY | [address] | | | + + + + + | [facility] DEPARTMENT OF | [address] | [place] [address] | | | PATHOLOGY | [address] [...] DEPARTMENT OF | [address] | [place] [address] | | | PATHOLOGY | [address] | | | + + + + + | [facility] DEPARTMENT OF | [address] | [place] [address] | | | PATHOLOGY | [address] | | | + + + + + MAGNESIUM, PLASMA (11/11/2008 1:30 AM PDT) + +-------+ + + + | Component | Value | Ref Range | Performed | Pathologist | | | | | At | Signature | + +-------+ + + + | MAGNESIUM,P | 1.8 | 1.8 - 2.5 mg/dL | [facility] | | | LASMA | | | [...] | + + + + + | [facility] DEPARTMENT OF | [facility] | [place] [address] | | | PATHOLOGY | [address] | | | + + + + + | [facility] DEPARTMENT OF | [address] | [place] [address] | | | PATHOLOGY | [address] [...] | + + + + + | [facility] DEPARTMENT OF | [address] | [place] [address] | | | PATHOLOGY | [address] | | | + + + + + | [facility] DEPARTMENT OF | [address] | [place] [address] | | | PATHOLOGY | [address] [...] | + + + + + | [facility] DEPARTMENT OF | [address] | [place] [address] | | | PATHOLOGY | [address] | | | + + + + + | [facility] | [address] | [place] [address] | | | PATHOLOGY | [address] [...] + + | [facility] DEPARTMENT OF | [facility] [address] [facility] | [place] [address] | | | PATHOLOGY | [address] | | | + + + + + | [facility] DEPARTMENT OF | [address] | [place] [address] | | | PATHOLOGY | [address] [...] | + + + + + | [facility] | [address] | [place] [address] | | | PATHOLOGY | [address] | | | + + + + + | [facility] | [address] | [place] [address] | | | PATHOLOGY | [address] [...] | + + + + + | [facility] DEPARTMENT OF | [address] | [place] [address] | | | PATHOLOGY | [address] | | | + + + + + | [facility] DEPARTMENT OF | [address] | [place] [address] | | | PATHOLOGY | [address] [...] | + + + + + | [facility] DEPARTMENT | [address] | [place] [address] | | | PATHOLOGY | [address] | | | + + + + + | [facility] | [address] | [place] [address] | | | PATHOLOGY | [address] [...] | | + +---------+ + + | [facility] DEPARTMENT OF | | | | | [...] | | + +---------+ + + | [facility] DEPARTMENT OF | | | | | [...] | + + + + + | [facility] DEPARTMENT OF | [address] | [place] [address] | | | PATHOLOGY | [address] | | | + + + + + | [facility] DEPARTMENT | [address] | [place] [address] | | | PATHOLOGY | [address] [...] | + + + + + | [facility] DEPARTMENT OF | [address] | [place] [address] | | | PATHOLOGY | [address] | | | + + + + + | [facility] DEPARTMENT OF | [facility] [facility] | [place] [address] | | | PATHOLOGY | [address] [...] | + + + + + | [facility] DEPARTMENT OF | [address] | [place] [address] | | | PATHOLOGY | [address] | | | + + + + + | [facility] DEPARTMENT OF | [address] | [place] [address] | | | PATHOLOGY | [address] [...] | + + + + + | [facility] | [address] | [place] [address] | | | PATHOLOGY | [address] | | | + + + + + | [facility] | [address] [place] [address] [address] | [place] [address] | | | PATHOLOGY | [address] [...] OF | [address] | [place] [address] | | | PATHOLOGY | [address] | | | + + + + + | [facility] DEPARTMENT OF | [address] | [place] [address] | | | PATHOLOGY | [address] | | | + + + + + PHOSPHORUS, PLASMA (11/10/2008 3:00 AM PDT) + +---------+ + + + | Component | Value | Ref Range | Performed | Pathologist | | | | | At | Signature | + +---------+ + + + | PHOSPHORUS, | 2.2 (L) | 2.4 - 4.7 mg/dL | [facility] | | | PLASMA | | | [...] | + + + + + | [facility] DEPARTMENT OF | [facility] | [place] [address] | | | PATHOLOGY | [address] | | | + + + + + | [facility] DEPARTMENT OF | [facility] | [place] [address] | | | PATHOLOGY | [address] [...] DEPARTMENT OF | [address] | [place] [address] | | | PATHOLOGY | [address] | | | + + + + + | [facility] DEPARTMENT OF | [address] | [place] [address] | | | PATHOLOGY | [address] [...] + + + + | PRODUCT | [id number] | | [facility] | | | UNIT [...] | + + + + + | [facility] DEPARTMENT OF | [address] | [place] [address] | | | PATHOLOGY | [address] | | | + + + + + | [facility] | [facility] | [place] [address] | | | PATHOLOGY | [address] [...] + | [facility] DEPARTMENT OF | [address] [facility] | [place] [address] | | | PATHOLOGY | [address] | | | + + + + + | [facility] DEPARTMENT OF | [address] | [place] [address] | | | PATHOLOGY | [address] | | | + + + + + HEMATOCRIT (11/09/2008 4:00 PM PDT) + + + + + + | Component | Value | Ref Range | Performed | Pathologist | | | | | At | Signature | + + + + + + | HEMATOCRIT | Not Recd | 36.0 - 46.0 % | [facility] | | | | | | DEPARTMENT [...] | + + + + + | [facility] DEPARTMENT OF | [facility] | [place] [address] | | | PATHOLOGY | [address] | | | + + + + + | [facility] DEPARTMENT OF | [address] | [place] [address] | | | PATHOLOGY | [address] [...] | + + + + + | [facility] | [address] | [place] [address] | | | PATHOLOGY | [address] | | | + + + + + | [facility] | [address] [address] | [place] [address] | | | PATHOLOGY | [address] [...] | + + + + + | [facility] DEPARTMENT OF | [address] [address] [facility] | [place] [address] | | | PATHOLOGY | [address] | | | + + + + + | [facility] DEPARTMENT OF | [address] [facility] [facility] | [place] [address] | | | PATHOLOGY | [address] [...] | + + + + + | [facility] | [address] [address] [facility] | [place] [address] | | | PATHOLOGY | [address] | | | + + + + + | [facility] | [address] [address] [facility] | [place] [address] | | | PATHOLOGY | [address] [...] | + + + + + | [facility] DEPARTMENT OF | [address] | [place] [address] | | | PATHOLOGY | [address] | | | + + + + + | [facility] DEPARTMENT OF | [address] | [place] [address] | | | PATHOLOGY | [address] [...] | + + + + + | [facility] DEPARTMENT | [address] | [place] [address] | | | PATHOLOGY | [address] | | | + + + + + | [facility] | [address] [facility] [facility] | [place] [address] | | | PATHOLOGY | [address] [...] + | [facility] DEPARTMENT OF | [address] [facility] [facility] | [place] [address] | | | PATHOLOGY | [address] | | | + + + + + | [facility] DEPARTMENT OF | [address] | [place] [place] [address] | | | PATHOLOGY | [address] [...] DEPARTMENT OF | [address] | [place] [address] | | | PATHOLOGY | [address] | | | + + + + + | [facility] DEPARTMENT OF | [address] | [place] [address] | | | PATHOLOGY | [address] [...] | + + + + + | [facility] DEPARTMENT | [address] [place] [address] | [place] [address] | | | PATHOLOGY | [address] | | | + + + + + | [facility] DEPARTMENT OF | [facility] [facility] | [place] [address] | | | PATHOLOGY | [address] [...] DEPARTMENT OF | [address] | [place] [address] | | | PATHOLOGY | [address] | | | + + + + + | [facility] | [address] [facility] [facility] | [place] [address] | | | PATHOLOGY | [address] | | | + + + + + OPERATION RECORD (11/09/2008 12:00 AM PDT) + + + | Narrative | Performed At | + + + | [id number] | | | [id number] | | | [id number] ELEUTERIO | | | KELLY [id number] | | | Date: 11/08/2008 Attending | | | Surgeon: Roc Rae M.D. | | | School Bus Technician(s): Aly Toney | | | Aguilar Fletcher [...] a wire | | | for a #4-Thai sheath. A Kumpe catheter and Vela catheter | | | were used to select the left subclavian artery and over wire, the | | | #4 Thai Vela catheter was advanced to the subclavian [...] proximal and distal control was obtained. A #2-Thai | | | Tyson catheter was used [...] | | dictation. Roc Rae M.D. / [id number] / | | | [id number] / [id number] / | | + + + + + | Procedure Note | + + | Roc Rae MD - 11/08/2008 12:00 AM PDT [id number] | | [id number] [facility] TEAGUE | | [id number] Date: 11/08/2008 Attending Surgeon: Roc | | Eve Rae. School Bus Technician(s): Aly Fletcher M.D. | | Sam Niño [...] exchanged | | over a wire fora #4-Thai sheath. A Kumpe catheter and Vela catheter were used | | toselect the left subclavian artery and over wire, the #4 Thai Bernsteincatheter was | | advanced to the [...] | bifurcation was re-exposed. The patient was oebbi1936 units of heparin. The | | arteriotomy of the brachial artery was openedafter proximal and distal control was | | obtained. A #2-Thai Fogartycatheter was used for thromboembolectomy of the [...] dictation. | | Roc Rae M.D.MALIKA / [id number] / [id number] / [id number] / T: 11/09/2008 | | | |upper arm was prepped and draped. The existing antecubital incision was | |opened and the brachial bifurcation was re-exposed. The patient was given | |5000 units of heparin. The arteriotomy of the brachial artery was opened | |after proximal and distal control was obtained. A #2-Thai Tyson | |catheter was used for thromboembolectomy [...] Rae M.D. | |EM / HS | |[id number] / [id number] / 43353 / | | | | | | | | | | | | | | | | | | | | | + + OPERATION RECORD (11/09/2008 12:00 AM PDT) + + + | Narrative | Performed At | + + + | [id number] | | | [id number] | | | [id number] [facility] | | | [place] [id number] | | | Date: 11/08/2008 Attending | | | Surgeon: Scot Beltrán MD | | | School Bus Technician(s): Preoperative Diagnosis(es): Dysvascular hand | | | [...] | | MD MARY Gregg / VONNIE [id number] / [id number] / [id number] / D: | | | 11/08/2008 | | + + + + + | Procedure Note | + + | Scot Beltrán MD - 11/08/2008 12:00 AM PDT [id number] | | [id number] [place] TEAGUE | | [id number] Date: 11/08/2008 Attending Surgeon: Scot | | MD Jerel School Bus Technician(s): Preoperative Diagnosis(es):Dysvascular hand status post | | [...] involved. Scot | | VANNESSA Beltrán / [id number] / [id number] / [id number] / T: 11/09/2008 | |The thenar and [...] Beltrán MD | |ZA / HS | |[id number] / [id number] / 56853 / | | | | | | [...] | + + + + + | [facility] | [id number] | [place] [address] | | | PATHOLOGY | [address] | | | + + + + + | [facility] | [address] | [place] [address] | | | PATHOLOGY | [address] [...] + + + + | PRODUCT | [id number] | | [facility] | | | UNIT [...] | + + + + + | [facility] | [facility] [address] | [place] [address] | | | PATHOLOGY | [address] | | | + + + + + | [facility] | [facility] | [place] [address] | | | PATHOLOGY | [address] [...] + + + + | PRODUCT | [id number] | | [facility] | | | UNIT [...] | + + + + + | [facility] | [address] | [place] [address] | | | PATHOLOGY | [address] | | | + + + + + | [facility] | [facility] | [place] [place] [address] | | | PATHOLOGY | [address] [...] + + + + | PRODUCT | [id number] | | [facility] | | | UNIT [...] | + + + + + | [facility] | [facility] | [place] [address] | | | PATHOLOGY | [address] | | | + + + + + | [facility] | [address] [place] [address] | [place] [address] | | | PATHOLOGY | [address] [...] + + + + | PRODUCT | [id number] | | [facility] | | | UNIT [...] + | [facility] DEPARTMENT OF | [address] | [place] [address] | | | PATHOLOGY | [address] | | | + + + + + | [facility] DEPARTMENT OF | [address] | [place] [address] | | | PATHOLOGY | [address] [...] | + + + + + | [facility] | [address] | [place] [address] | | | PATHOLOGY | [address] | | | + + + + + | [facility] | [address] [place] [address] | [place] [address] | | | PATHOLOGY | [address] [...] | [address] | [place] [address] | | | PATHOLOGY | [address] | | | + + + + + | [facility] DEPARTMENT OF | [address] | [place] [address] | | | PATHOLOGY | [address] | | | + + + + + PHOSPHORUS, PLASMA (11/08/2008 3:40 AM PDT) + +-------+ + + + | Component | Value | Ref Range | Performed | Pathologist | | | | | At | Signature | + +-------+ + + + | PHOSPHORUS, | 4.0 | 2.4 - 4.7 mg/dL | [facility] | | | PLASMA | | | [...] | + + + + + | [facility] DEPARTMENT OF | [address] | [place] [address] | | | PATHOLOGY | [address] | | | + + + + + | [facility] DEPARTMENT OF | [address] | [place] [address] | | | PATHOLOGY | [address] [...] | + + + + + | [facility] | [address] | [place] [address] | | | PATHOLOGY | [address] | | | + + + + + | [facility] | [address] | [place] [address] | | | PATHOLOGY | [address] [...] | + + + + + | [facility] | [address] | [place] [address] | | | PATHOLOGY | [address] | | | + + + + + | [facility] | [address] | [place] [address] | | | PATHOLOGY | [address] [...] | + + + + + | [facility] DEPARTMENT OF | [address] | [place] [address] | | | PATHOLOGY | [address] | | | + + + + + | [facility] DEPARTMENT OF | [address] | [place] [address] | | | PATHOLOGY | [address] [...] + + + + | PRODUCT | [id number] | | [facility] | | | UNIT [...] | + + + + + | [facility] DEPARTMENT OF | [facility] | [place] [address] | | | PATHOLOGY | [address] | | | + + + + + | [facility] DEPARTMENT OF | [facility] | [place] [address] | | | PATHOLOGY | [address] [...] + + + + | PRODUCT | [id number] | | [facility] | | | UNIT [...] | + + + + + | [facility] DEPARTMENT OF | [address] | [place] [address] | | | PATHOLOGY | [address] | | | + + + + + | [facility] DEPARTMENT OF | [address] | [place] [address] | | | PATHOLOGY | [address] [...] | + + + + + | [facility] | [address] | [place] [address] | | | PATHOLOGY | [address] | | | + + + + + | [facility] | [address] | [place] [address] | | | PATHOLOGY | [address] [...] | + + + + + | [facility] | [address] | [place] [address] | | | PATHOLOGY | [address] | | | + + + + + | [facility] | [address] | [place] [address] | | | PATHOLOGY | [address] [...] irregular, | | | | | | okpw-wb-weoqzvanfo, | | | | | | red-young [...] irregular, | | | | | | kohb-pz-cqiwsbgaie, | | | | | | translucent, | | | | | | gvs-xd-likun | | | | | | redtissues. [...] | + + + + + | [facility] | [facility] [facility] | [place] [address] | | | PATHOLOGY | [address] | | | + + + + + | [facility] DEPARTMENT OF | [address] | [place] [address] | | | PATHOLOGY | [address] [...] + + + + | PRODUCT | [id number] | | [facility] | | | UNIT [...] | + + + + + | [facility] | [address] | [place] [address] | | | PATHOLOGY | [address] | | | + + + + + | [facility] | [facility] [address] [facility] | [place] [place] [address] | | | PATHOLOGY | [address] [...] + + + + | PRODUCT | [id number] | | [facility] | | | UNIT [...] | + + + + + | [facility] DEPARTMENT OF | [address] | [place] [address] | | | PATHOLOGY | [address] | | | + + + + + | [facility] DEPARTMENT OF | [address] | [place] [address] | | | PATHOLOGY | [address] [...] | | | | | ARTERY | [id number] Name | | | | | DUPLEX [...] # | | | | | | [id number]:UPPER | | | | | | EXTREMITY [...] systolic | | | | | | [id number] | | | | | | cm/sec. [...] + + + + | PRODUCT | [id number] | | [facility] | | | UNIT [...] | + + + + + | [facility] | [address] | [place] [address] | | | PATHOLOGY | [address] | | | + + + + + | [facility] | [address] | [place] [address] | | | PATHOLOGY | [address] [...] + + + + | PRODUCT | [id number] | | [facility] | | | UNIT [...] DEPARTMENT OF | [address] | [place] [address] | | | PATHOLOGY | [address] | | | + + + + + | [facility] DEPARTMENT OF | [address] | [place] [address] | | | PATHOLOGY | [address] [...] DEPARTMENT OF | [address] | [place] [address] | | | PATHOLOGY | [address] | | | + + + + + | [facility] DEPARTMENT OF | [address] | [place] [address] | | | PATHOLOGY | [address] | | | + + + + + CREATININE, URINE (11/07/2008 6:30 PM PDT) + +--------+ + + + | Component | Value | Ref Range | Performed | Pathologist | | | | | At | Signature | + +--------+ + + + | CREATININE | 104.67 | mg/dL | [facility] | | | CONC UR | | [...] | + + + + + | [facility] | [address] | [place] [address] | | | PATHOLOGY | [address] | | | + + + + + | [facility] | [address] | [place] [address] | | | PATHOLOGY | [address] [...] At | + + + | R[facility]arlene ([facility] | MELANIE | | [place] [place] [address] | DEPARTMENT OF | | [place] [address] | PATHOLOGY | + + + + + + + + | Performing | Address | City/State/Zipcode | Phone Number | | Organization | | | | + + + + + | [facility] DEPARTMENT OF | [address] | [place] [address] | | | PATHOLOGY | [address] | | | + + + + + | [facility] DEPARTMENT OF | [address] | [place] [address] | | | PATHOLOGY | [address] | | | + + + + + HEMATOCRIT (11/07/2008 6:29 PM PDT) + + + + + + | Component | Value | Ref Range | Performed | Pathologist | | | | | At | Signature | + + + + + + | HEMATOCRIT | 26.6 (L) | 36.0 - 46.0 % | [facility] | | | | | | DEPARTMENT [...] | + + + + + | [facility] DEPARTMENT OF | [address] | [place] [address] | | | PATHOLOGY | [address] | | | + + + + + | [facility] DEPARTMENT OF | [address] | [place] [address] | | | PATHOLOGY | [address] [...] DEPARTMENT OF | [address] | [place] [address] | | | PATHOLOGY | [address] | | | + + + + + | [facility] DEPARTMENT OF | [address] | [place] [address] | | | PATHOLOGY | [address] [...] + + + + | PRODUCT | [id number] | | [facility] | | | UNIT [...] | + + + + + | [facility] DEPARTMENT OF | [facility] | [place] [address] | | | PATHOLOGY | [address] | | | + + + + + | [facility] DEPARTMENT OF | [facility] [facility] [address] [facility] | [place] [address] | | | PATHOLOGY | [address] [...] | + + + + + | [facility] DEPARTMENT | [address] | [place] [address] | | | PATHOLOGY | [address] | | | + + + + + | [facility] | [address] | [place] [address] | | | PATHOLOGY | [address] [...] + + | [facility] DEPARTMENT OF | [address] | [place] [address] | | | PATHOLOGY | [address] | | | + + + + + | [facility] DEPARTMENT | [address] | [place] [address] | | | PATHOLOGY | [address] [...] See cmnt | 26.0 - 36.0 | [facility] | | | | | seconds | [...] | + + + + + | [facility] DEPARTMENT OF | [address] | [place] [address] | | | PATHOLOGY | [address] | | | + + + + + | [facility] DEPARTMENT OF | [address] | [place] [address] | | | PATHOLOGY | [address] [...] arteryPrimary | | | | | | x ray equipment tester: Varun | | | | | | Aguilar MurilloSchool Bus Technician | | | | | | x ray equipment tester: Niels | | | | | | Aguilar MaradiagaAttending | | | | | | x ray equipment tester: Niels | | | | | | [...] a | | | | | | 4-Thai catheter | | | | | | [...] | | | | | | the 4-Thai | | | | | | catheterthat [...] | + + + + + | [facility] DEPARTMENT OF | [address] | [place] [address] | | | PATHOLOGY | [address] | | | + + + + + | [facility] DEPARTMENT OF | [address] | [place] [address] | | | PATHOLOGY | [address] [...] view image for the detailed interpretation from [employer] results. | CARDIOLOGY | | | | + + + + + + + + | Performing | Address | City/State/Zipcode | Phone Number | | Organization | | | | + + + + + | [facility] DEPT OF | [address] | [place], [place] | | | CARDIOLOGY | [address] | [address] | | + + + + + | [facility] DEPT OF | [address] | [place], [place] | | | CARDIOLOGY | [address] | [address] | | + + + + + [...] | | | | | PORTABLE | [id number] Name | | | | | VEIN | : KELLY MCCLELLAN | | | | | MAPPING | Birthday: | | | | | LOWER | 1955 Sex: | | | | | EXTREMITY | F Alias:Patient | | | | | BILATERAL | Location: [address] [place], [place] [address]us: | | | | | | Inpatient ActiveOrdering | | | | | | Physician: ROC Sears | | | | | | Aguilar RAEVVMLBP VL | | | | | | PORT VEIN MAPPING BILAT | | | | | | LE completed on 11/07/2008 | | | | | | 6:22 AMAccession # | | | | | | [id number]:LEG VEIN | | | | | | [...] | + + + + + | [facility] DEPARTMENT OF | [address] | [place] [address] | | | PATHOLOGY | [address] | | | + + + + + | [facility] DEPARTMENT OF | [address] | [place] [address] | | | PATHOLOGY | [address] [...] | + + + + + | [facility] DEPARTMENT OF | [address] | [place] [address] | | | PATHOLOGY | [address] | | | + + + + + | [facility] DEPARTMENT OF | [address] | [place] [address] | | | PATHOLOGY | [address] [...] | + + + + + | [facility] DEPARTMENT OF | [address] | [place] [address] | | | PATHOLOGY | [address] | | | + + + + + | [facility] DEPARTMENT OF | [address] | [place] [address] | | | PATHOLOGY | [address] [...] | + + + + + | [facility] DEPARTMENT OF | [address] | [place] [address] | | | PATHOLOGY | [address] | | | + + + + + | [facility] DEPARTMENT OF | [address] | [place] [address] | | | PATHOLOGY | [address] [...] DEPARTMENT OF | [address] | [place] [address] | | | PATHOLOGY | [address] | | | + + + + + | [facility] DEPARTMENT OF | [address] | [place] [address] | | | PATHOLOGY | [address] [...] | + + + + + | [facility] DEPARTMENT OF | [address] | [place] [address] | | | PATHOLOGY | [address] | | | + + + + + | [facility] DEPARTMENT OF | [address] | [place] [address] | | | PATHOLOGY | [address] [...] [facility] | [address] | [place], [place] | | | THERAPY | [address] | [address] | | + + + + + | [facility] RES[facility] | [address] | [place], [place] | | | THERAPY | [address] | [address] | | + + + + + [...] | | + +---------+ + + | [facility] DEPARTMENT OF | | | | | [...] 02:58:00; | | | | | | [place] FOREARM 2 VIEWS | | | | [...] | | + +---------+ + + | [facility] DEPARTMENT OF | | | | | [...] | | | | FOREARM 2 | [place] FOREARM 2 VIEWS | | | | [...] | | + +---------+ + + | [facility] DEPARTMENT OF | | | | | [...] | + + + + + | [facility] | [address] | [place] [address] | | | PATHOLOGY | [address] | | | + + + + + | [facility] | [facility] | [place] [address] | | | PATHOLOGY | [address] [...] DEPARTMENT OF | [address] | [place] [address] | | | PATHOLOGY | [address] | | | + + + + + | [facility] DEPARTMENT | [address] | [place] [address] | | | PATHOLOGY | [address] | | | + + + + + SURGICAL PATHOLOGY (11/07/2008) + + + + + + | Component | Value | Ref Range | Performed | Pathologist | | | | | At | Signature | + + + + + + | SURGICAL | SOURCE OF SPECIMEN:A | | [facility] | | | PATHOLOGY | Thrombus, left [...] | + + + + + | [facility] DEPARTMENT OF | [address] | [place] [address] | | | PATHOLOGY | [address] | | | + + + + + | [facility] DEPARTMENT OF | [address] | [place] [address] | | | PATHOLOGY | [address] [...] | + + + + + | [facility] DEPARTMENT OF | [address] | [place] [address] | | | PATHOLOGY | [address] | | | + + + + + | [facility] DEPARTMENT OF | [address] | [place] [address] | | | PATHOLOGY | [address] [...] RLB (Airport | | | Way Lab) [facility] [address] | | [place] [address] | | + + + + + + + + | Performing | Address | City/State/Zipcode | Phone Number | | Organization | | | | + + + + + | [facility] DEPARTMENT OF | [address] | [place] [address] | | | PATHOLOGY | [address] | | | + + + + + | [facility] DEPARTMENT OF | [address] | [place] [address] | | | PATHOLOGY | [address] [...] | + + + + + | [facility] | [address] | [place] [address] | | | PATHOLOGY | [address] | | | + + + + + | [facility] | [address] | [place] [address] | | | PATHOLOGY | [address] [...] | + + + + + | [facility] DEPARTMENT OF | [address] | [place] [address] | | | PATHOLOGY | [address] | | | + + + + + | [facility] DEPARTMENT | [address] | [place] [address] | | | PATHOLOGY | [address] | | | + + + + + INR (11/06/2008 9:58 PM PDT) + + + + + + | Component | Value | Ref Range | Performed | Pathologist | | | | | At | Signature | + + + + + + | INR | 1.09Comment: | 0.90 - 1.20 INR | [facility] | | | | INR | | [...] | + + + + + | [facility] DEPARTMENT OF | [address] | [place] [address] | | | PATHOLOGY | [address] | | | + + + + + | [facility] DEPARTMENT OF | [address] | [place] [address] | | | PATHOLOGY | [address] [...] 3.59 (L) | 4.00 - 5.20 | [facility] | | | COUNT | | M/cu [...] | + + + + + | [facility] DEPARTMENT | [address] [place] [address] | [place] [address] | | | PATHOLOGY | [address] | | | + + + + + | [facility] DEPARTMENT OF | [facility] [facility] | [place] [address] | | | PATHOLOGY | [address] [...] DEPARTMENT OF | [address] | [place] [address] | | | PATHOLOGY | [address] | | | + + + + + | [facility] DEPARTMENT OF | [address] | [place] [address] | | | PATHOLOGY | [address] [...] + + + + | PRODUCT | [id number] | | [facility] | | | UNIT [...] | + + + + + | [facility] | [address] | [place] [address] | | | PATHOLOGY | [address] | | | + + + + + | [facility] | [address] [place] [address] [address] | [place] [address] | | | PATHOLOGY | [address] [...] + + + + | PRODUCT | [id number] | | [facility] | | | UNIT [...] DEPARTMENT OF | [address] | [place] [address] | | | PATHOLOGY | [address] | | | + + + + + | [facility] DEPARTMENT OF | [address] | [place] [address] | | | PATHOLOGY | [address] [...] | + + + + + | [facility] DEPARTMENT OF | [address] | [place] [address] | | | PATHOLOGY | [address] | | | + + + + + | [facility] DEPARTMENT OF | [address] | [place] [address] | | | PATHOLOGY | [address] | | | + + + + + OPERATION RECORD (11/06/2008 12:00 AM PDT) + + + | Narrative | Performed At | + + + | [id number] | | | [id number] | | | [id number] ELEUTERIO | | | [place] [id number] | | | Date: 11/07/2008 Attending | | | Surgeon: Misbah Quijano M.D. | | | School Bus Technician(s): Sam Niño | | | Aguilar Preoperative [...] also | | | have an emergency SCRAPE GATHERER consult for the ongoing significant vaginal | [...] MD Professor of | | | Surgery [facility] / [id number] / [id number] / [id number] / T: | | | 11/08/2008 | | + + + + + | Procedure Note | + + | Misbah Quijano MD - 11/07/2008 12:00 AM PDT [id number] | | [id number] ELEUTERIO TEAGUE | | [id number] Date: 11/07/2008 Attending Surgeon: Misbah | | Renu Quijano M.D. School Bus Technician(s): Sam Niño M.D. Preoperative | | Diagnosis(es):Severely [...] | | will also have an emergency SCRAPE GATHERER consult for the ongoingsignificant vaginal bleeding. | | The antecubital wound was then closed withinterrupted 3-0 Vicryl sutures and the skin | | closed with interrupted nylons.Sterile dressing was applied, and she was transferred to | | the recovery areain stable condition. She seemed to have tolerated this procedure well. | | MISBAH QUIJANO, [facility] of Surgery [facility] / [id number] / [id number] / [id number] /D: | | 11/08/2008T: 11/08/2008 | |of [...] |extremity. She will also have an emergency SCRAPE GATHERER consult for the ongoing | |significant vaginal [...] | | | |MISBAH QUIJANO MD | |exposure machine operator | | | | | |GLM / | |[id number] / [id number] / [id number] / | | | | | | [...] necessary | | | | | | [facility] | | | | | | and [...] mottled | | | | | | jnz-nphk-cd-hemorrhagic | | | | | | red [...] | | | | | | dusky illqug-pc-zce | | | | | | discoloration [...] | + + + + + | [facility] | [facility] | [place] [address] | | | PATHOLOGY | [address] | | | + + + + + | [facility] DEPARTMENT OF | [facility] | [place] [address] | | | PATHOLOGY | [address] [...] + + +----+--------+---+ | HYDROmorphone 0.5 mg/mL MELANGEUR OPERATOR | Rate/Dos | 11/12/19 | mg | [...] | | HOURS, First dose on Loraine 11/22/08 | | | | | | [...] 8:45 | | | | | dose, [facility] 11/08/08 at 2045 | | PM PDT [...] 8:37 | | | | | Travis christiansen 11/13/08 at 1915 | | PM PDT | | | | + +-------+ +--------+---+---+ +---+---+ | | | +---+---+ + +-------+ +--------+---+---+ | potassium chloride SR (aka | Given | 11/14/19 | 40 mEq | | | | K-DUR) tablet 40 mEq 40 mEq, | | 09 10:30 | | | | | oral, ONCE, 1 dose, [facility] 11/13/08 | | AM PDT | [...] | | | oral, ONCE, 1 dose, [facility] 11/15/08 | | AM PDT | | [...]
--- OUTSIDE RECORDS SUMMARY | ~2018-07-29 | XMS | Encounter Summary ---
Demographics + + + | Address | [address] | | | [place] [address] | + + + | Home Phone | | + + + | Preferred Language | Unknown | + + + | Marital Status | | + + + | Uatsdin Affiliation | Unknown | + + + | Race | Unknown | + + + | Ethnic Group | Unknown | + + + Author + + + | Author | [facility] | + + + | Organization | [facility] | + + + | Address | Unknown | + + + | Phone | Unavailable | + + + Support + + +---------+ + | Name | Relationship | Address | Phone | + + +---------+ + | Isidra Delgado | ECON | Unknown | | + + +---------+ + Care Team Providers + +------+ + | Care Nursing Assistant Name | Role | Phone | + +------+ + | Kj Austin MD | PCP | | + +------+ + Encounter Details +--------+ + + + + | Date | Type | Department | Care Team | Description | +--------+ + + + + | 07/26/ | Documentati | [facility] | Minh Horne DO | | | 2019 | on Only | [facility] | [address] | | | | | [address] | [place], [place] | | | | | [place], [place] | [address] | | | | | [address] | | | | | | [phone] | | | +--------+ + + + [...] + + + as of this encounter Plan of Treatment +--------+---------+ + + + | Date | Type | Specialty | Care Team | Description | +--------+---------+ + + + | 08/10/ | Office | Neurosurgery | Minh Horne DO | | | 2019 | Visit | | [address] | | | | | | [place] | | | | | | [address] | | | | | | | | +--------+---------+ + + + as of this encounter Visit Diagnoses Not on filein this encounter"
--- OUTSIDE RECORDS SUMMARY | ~2018-07-29 | XMS | Encounter Summary ---
Demographics + + + | Address | [address] | | | [place] [address] | + + + | Home Phone | | + + + | Preferred Language | Unknown | + + + | Marital Status | Single | + + + | Shinto Affiliation | PRO | + + + | Race | White | + + + | Ethnic Group | Not or | + + + Author + + + | Author | [facility] | + + + | Organization | [facility] | + + + | Address | Unknown | + + + | Phone | Unavailable | + + + Support + + +---------+ + | Name | Relationship | Address | Phone | + + +---------+ + | Isidra Wilson | ECON | Unknown | | + + +---------+ + Care Team Providers + +------+ + | Care Manager Green Name | Role | Phone | + [...] | | | | | finger(s) | [place], [place] | [address] | | | | | (complete) | [address] | for Health | | | | | (partial), | Phone: | and Healing, | | | | | complicated | [phone] | [address] Floor | | | | | Procedures | Fax: | [place], [place] | | | | | OCC HAND | [phone] | [address] | | | | | THERAPY | | Phone: | | | | | REFERRAL IN | | [phone] | | | | | PPV | | Fax: | | | | | [facility] | | [phone] | | | | | visits | | | +--------+--------+ + + + + Encounter Details +--------+---------+ + + + | Date | Type | Department | Care Team | Description | +--------+---------+ + + + | 12/13/ | Office | Orthopaedics at | Yazmin Queen PA | Amputation | | 2008 | Visit | [facility] [address] | [address] | Finger-Complicated | | | | Ave Mailcode: CH12A | [place], [place] | (Primary Dx) | | | | [place] [facility] | [address] | | | | | and , | [phone] | | | | | Floor [place], [place] | | | | | | [address] | | | | | | [phone] | | | +--------+---------+ + + + [...] her diabetes c loser to home in [place]. She was advised to call our office if she needs assistance with th is. 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
--- OUTSIDE RECORDS SUMMARY | ~2018-07-29 | XMS | Encounter Summary ---
Demographics + + + | Address | [address] | | | [place] [address] | + + + | Home Phone [...] Author + + + | Author | [facility] | + + + | Organization | [facility] | + + + | Address | Unknown | + + + | Phone | Unavailable | + + + Support + + +---------+ + | Name | Relationship | Address | Phone | + + +---------+ + | Isidra Wilson | ECON | Unknown | | + + +---------+ + Care Team Providers + +------+ + | Care Healthcare Liaison Name | Role | Phone | + [...] + + | 11/06/ | Emergency | [facility] Emergency | | | | 2008 - | | Department [address] | | | | | [address] | | | | 11/07/ | | [facility] | | | | 2008 | | [place] [address] | | | | | | [phone] | | | +--------+ + + + [...]
--- OUTSIDE RECORDS SUMMARY | ~2018-07-29 | XMS | Clinical Summary ---
Demographics + + + | Address | [address] | | | [place] [address] | + + + | Home Phone | | + + + | Preferred Language | Unknown | + + + | Marital Status | Single | + + + | Nondenominational Affiliation | PRO | + + + [...] Team Providers + +------+ + | Care Tavern Keeper Name | Role | Phone | + +------+ + | Jim Bergman MD | PP | | + +------+ + Source Comments MELANIE is fully live on both [facility] Ambulatory and [facility] InPatient.[facility] Allergies No Known [...] complicated | | + + + | station installer current use of anticoagulant therapy | 12/10/2008 [...] Patient | Explanation | | | | Gold Reclaimer | | + + + + + | Advance | | | | | Directives and | | | | | Living Will | | | | + + + + + | Power of | | | | | Ruling Machine Feeder | | | | + + + [...]
--- OUTSIDE RECORDS SUMMARY | ~2018-07-29 | XMS | Encounter Summary ---
Demographics + + + | Address | [address] | | | [place] [address] | + + + | Home Phone | | + + + | Preferred Language | Unknown | + + + | Marital Status | Single | + + + | Sikh Affiliation | PRO | + + + | Race | White | + + + | Ethnic Group | Not or | + + + Author + + + | Author | [facility] | + + + | Organization | [facility] | + + + | Address | Unknown | + + + | Phone | Unavailable | + + + Support + + +---------+ + | Name | Relationship | Address | Phone | + + +---------+ + | Isidra Wilson | ECON | Unknown | | + + +---------+ + Care Team Providers + +------+ + | Care Activity Aide Name | Role | Phone | [...] | | | | | [address] | | | | | | [place], | | | | | | [place] [address] | | | | | | [phone] | | | +--------+ + + + [...]
--- OUTSIDE RECORDS SUMMARY | ~2018-07-29 | XMS | Encounter Summary ---
Demographics + + + | Address | [address] | | | [place] [address] | + + + | Home Phone | | + + + | Preferred Language | Unknown | + + + | Marital Status | | + + + | Mormonism Affiliation | Unknown | + + + | Race | Unknown | + + + | Ethnic Group | Unknown | + + + Author + + + | Author | [facility] | + + + | Organization | [facility] | + + + | Address | Unknown | + + + | Phone | Unavailable | + + + Support + + +---------+ + | Name | Relationship | Address | Phone | + + +---------+ + | Isidra Delgado | ECON | Unknown | | + + +---------+ + Care Team Providers + +------+ + | Care Fast Food Crew Lead Name | Role | Phone | + +------+ + | Kj Austin MD | PCP | | + +------+ + Reason for Visit +--------+ + | Reason | Comments | +--------+ + | Other | Referral update from [facility] for | | | Neurosurgery 07/06/18 | +--------+ + Encounter Details +--------+ + + + + | Date | Type | Department | Care Team | Description | +--------+ + + + + | 07/07/ | Documentati | [facility] | Preethi Jara CMA | Other (Referral | | 2019 | on Only | Neuroscience Center | | update from Javan | | | | [address] | | [facility] | | | | [place], [place] | | [facility] | | | | [address] | | Neurosurgery 07/06/18) | | | | [phone] | | | +--------+ + + + [...] [place] | | | | | | [address] | | | | | | | | +--------+---------+ + + + as of this encounter Visit Diagnoses Not on filein this encounter"
--- OUTSIDE RECORDS SUMMARY | ~2018-07-29 | XMS | Encounter Summary ---
Demographics + + + | Address | [address] | | | [place] [address] | + + + | Home Phone | | + + + | Preferred Language | Unknown | + + + | Marital Status | Single | + + + | Hoahaoism Affiliation | PRO | + + + [...] Team Providers + +------+ + | Care Bull Riveter Name | Role | Phone | + +------+ + PCP | Unavailable | + +------+ + Reason for Visit + + + | Reason | Comments | + + + | Pathology Report | | + + + Encounter Details +--------+ + + + + | Date | Type | Department | Care Team | Description | +--------+ + + + + | 12/01/ | Documentati | [facility] | Kamila Costa | Pathology Report | | 2008 | on | [facility] | MD Karrie | | | | | [place] [address] | | | | | | [address] | | | | | | [address] | | | | | | [place], | | | | | | [place] [address] | | | | | | [phone] | | | +--------+ + + + [...]
--- OUTSIDE RECORDS SUMMARY | ~2018-07-29 | XMS | Encounter Summary ---
Demographics + + + | Address | [address] | | | [place] [address] | + + + | Home Phone | | + + + | Preferred Language | Unknown | + + + | Marital Status | Single | + + + | Church Affiliation | PRO | + + + | Race | White | + + + | Ethnic Group | Not or | + + + Author + + + | Author | [facility] | + + + | Organization | [facility] | + + + | Address | Unknown | + + + | Phone | Unavailable | + + + Support + + +---------+ + | Name | Relationship | Address | Phone | + + +---------+ + | Isidra Wilson | ECON | Unknown | | + + +---------+ + Care Team Providers + +------+ + | Care Health And Safety Consultant Name | Role | Phone | + +------+ + | Jim Bergman MD | PCP | | + +------+ + Reason for Visit + + + | Reason | Comments | + + + | Prescription | Dr. Haley | + + + Encounter Details +--------+ + + + + | Date | Type | Department | Care Team | Description | +--------+ + + + + | 04/18/ | Telephone | [facility] | Lauren Haley | Prescription ( | | 2009 | | [facility] | MD Chuyita | Sudha) | | | | [place] [address] | | | | | | [address] | | | | | | R[address] | | | | | | [place], | | | | | | [place] [address] | | | | | | [phone] | | | +--------+ + + + [...]
--- OUTSIDE RECORDS SUMMARY | ~2018-07-29 | XMS | Encounter Summary ---
Demographics + + + | Address | [address] | | | [place] [address] | + + + | Home Phone | | + + + | Preferred Language | Unknown | + + + | Marital Status | Single | + + + | Catholic Affiliation | PRO | + + + [...] Team Providers + +------+ + | Care Headstart Teacher Name | Role | Phone | + +------+ + | Jim Bergman MD | PCP | | + +------+ + Encounter Details +--------+ + + + + | Date | Type | Department | Care Team | Description | +--------+ + + + + | 11/07/ | Results | LAB REFERRED TESTS | Other, Faculty | | | 2008 | Only | [address] [facility] | [phone] | | | | | [facility] | | | | | | [place], [place] | | | | | | [address] | | | +--------+ + + + [...] | + +--------+ + + + | EJECTION FRACTION | Routin | 11/07/2008 | | Results for this | | | e | 2:29 PM | | procedure are in the | | | | PDT | | results section. | + +--------+ + + + documented in this encounter Results EJECTION FRACTION (11/07/2008 2:29 PM PDT) + + + + + + | Component | Value | Ref Range | Performed | Pathologist | | | | | At | Signature | + + + + + + | EJECTION | 60 - 65%Comment: EF | | [facility] | | | FRACTION | Recorded from | | OF | | | | Transthoracic | | CARDIOLOGY | | | | Echocardiogram | | | | + + + + + + + + | Specimen | + + | | + + + + + + + | Performing | Address | City/State/Zipcode | Phone Number | | Organization | | | | + + + + + | [facility] | [address] | [place] | | | CARDIOLOGY | [address] | [address] | | + + + + + | [facility] | [address] | [place], [place] | | | CARDIOLOGY | [address] | [address] | | + + + + + documented in this encounter Visit Diagnoses Not on filedocumented in this encounter"
--- OUTSIDE RECORDS SUMMARY | ~2018-07-29 | XMS | Encounter Summary ---
Demographics + + + | Address | [address] | | | [place] [address] | + + + | Home Phone [...] + + + | Author | [facility] | + + + | Organization | [facility] | + + + | Address | Unknown | + + + | Phone | Unavailable | + + + Support + + +---------+ + | Name | Relationship | Address | Phone | + + +---------+ + | Isidra Wilson | ECON | Unknown | | + + +---------+ + Care Team Providers + +------+ + | Care Business Quality Assurance Analyst Name | Role | Phone | [...] Prescription ( | | 2009 | | [facility] | MD Chuyita | Sudha) | | | | [place] [address] | | | | | | [address] | | | | | | [address] | | | | | | [place], | | | | | | [place] [address] | | | | | | [phone] | | | +--------+ + + + [...]
--- OUTSIDE RECORDS SUMMARY | ~2018-07-29 | XMS | Encounter Summary ---
Demographics + + + | Address | [address] | | | [place] [address] | + + + | Home Phone | | + + + | Preferred Language | Unknown | + + + | Marital Status | | + + + | Hoahaoism Affiliation | Unknown | + + + | Race | Unknown | + + + | Ethnic Group | Unknown | + + + Author + + + | Author | [facility] | + + + | Organization | [facility] [employer] [facility] | + + + | Address | Unknown | + + + | Phone | Unavailable | + + + Support + + +---------+ + | Name | Relationship | Address | Phone | + + +---------+ + | Isidra Delgado | ECON | Unknown | | + + +---------+ + Care Team Providers + +------+ + | Care Fur Matcher Name | Role | Phone | + +------+ + | Kj Austin MD | PCP | | + +------+ + Reason for Visit +--------+ + | Reason | Comments | +--------+ + | Other | Referral update from [facility] for | | | Neurosurgery 07/06/18 | [...] | | [address] | | [facility] | | | | [place], [place] | | [facility] | | | | [address] | | Neurosurgery 07/06/18) | | | | [phone] | | | +--------+ + + + [...] [place] | | | | | | [address] | | | | | | | | +--------+---------+ + + + as of this encounter Visit Diagnoses Not on filein this encounter"
--- OUTSIDE RECORDS SUMMARY | ~2018-07-29 | XMS | Encounter Summary ---
Demographics + + + | Address | [address] | | | [place] [address] | + + + | Home Phone [...] Author + + + | Author | [facility] | + + + | Organization | [facility] | + + + | Address | Unknown | + + + | Phone | Unavailable | + + + Support + + +---------+ + | Name | Relationship | Address | Phone | + + +---------+ + | Isidra Wilson | ECON | Unknown | | + + +---------+ + Care Team Providers + +------+ + | Care Smasher Hand Name | Role | Phone | + [...] | | | | | finger(s) | [place], [place] | [facility] | | | | | (complete) | [address] | for Health | | | | | (partial), | Phone: | and Healing, | | | | | complicated | [phone] | 1st Floor | | | | | Procedures | Fax: | [place], [place] | | | | | OCC HAND | [phone] | [address] | | | | | THERAPY | | Phone: | | | | | REFERRAL IN | | [phone] | | | | | PPV | | Fax: | | | | | [employer] [facility] 4 | | [phone] | | | | | visits | [...] Finger-Complicated | | | | Services at [facility] | [address] | (Primary Dx) | | | | [place] [address] | [place] [address] | | | | | Salvador Emily Mailcode: | [phone] | | | | | [facility] | | | | | | Health and Healing, | | | | | | 1st Floor [place], | | | | | | [place] [address] | | | | | | [phone] | | | +--------+---------+ + + + [...] Wan OT - 12/13/2008 11:19 AM PDT [id number] ZAHIDA MCBRIDE Date of : 1955 Start of care: 12/13/2008 Date of onset: 11/26/2008 (most recent surgery) Referring/Attending Practitioner: Yazmin Queen Primary/Referral Diagnosis/ICD-9: Encounter Diagnoses Code Name Primary? Qualifier 886.1 Amputation Finger-Complicated Yes Plan: [place] OCCUPATIONAL THERAPY EVALUATION Insurance: Payor: No coverage found. Service period from: 12/13/2008 to: 01/12/2009 Number visits used/authorized: 1 used -- applying for financial assistance [facility] OCCUPATIONAL THERAPY INITIAL EVALUATION HAND INITIAL EVALUATION Name: Zahida Mcbride MR# [id number] SUBJECTIVE: History of Presenting Problem: Zahida Mcbride [...] program and given name of therapist in [place], which is closer to her home. Pt encouraged to f/u with therapist in [facility] next week a nd f/u with this [...] Primary? Qualifier 886.1 Amputation Finger-Complicated Yes Plan: CO OCCUPATIONAL THERAPY EVALUATION ASSESSMENT: Zahida requires services [...] therapist regarding any change in their status. ANDREW WAN OTR/L, CHT [facility] [address] [facility], 3rd [place] [address] documented in this encounter Plan of Treatment + + +--------+ + + | Name | Type | Priori | Associated Diagnoses | Order Schedule | | | | ty | | | + + +--------+ + + | CO OCCUPATIONAL | Procedures | Routin | Amputation [...]
--- OUTSIDE RECORDS SUMMARY | ~2018-07-29 | XMS | Encounter Summary ---
Demographics + + + | Address | [address] | | | [place] [address] | + + + | Home Phone | | + + + | Preferred Language | Unknown | + + + | Marital Status | Single | + + + | Zoroastrian Affiliation | PRO | + + + | Race | White | + + + | Ethnic Group | Not or | + + + Author + + + | Author | [facility] | + + + | Organization | [facility] | + + + | Address | Unknown | + + + | Phone | Unavailable | + + + Support + + +---------+ + | Name | Relationship | Address | Phone | + + +---------+ + | Isidra Wilson | ECON | Unknown | | + + +---------+ + Care Team Providers + +------+ + | Care Form Tamper Name | Role | Phone | + [...] | [facility] [address] | VICE PRESIDENT OF SOFTWARE DEVELOPMENT [address] | Encounter for | | | | [facility] [address] | [facility] [address] [facility] [address] | Long-Term (Current) | | | | Physicians [place] | [place], [place] | Use of | | | | [address] | [address] | Anticoagulants | | | | Physicians [address] | [phone] | | | | | [place], [place] | | | | | | [address] | | | | | | [phone] | | | +--------+---------+ + + + [...] lack of desire/motivation, re ading inability, financial, caodaism and language. Referral to: None required out of the following: digital asset coordinator services, home care, PT/Rehab, care managem ent/director of social services, community resources, steamtable attendant railroad, pain management, primary care physician . Preferred [...] + + + | [facility] | [address] | [place], [place] | | | [facility] CARE | [address] | [address] | | | TESTS | | | | + + + + + | [facility] | 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
--- OUTSIDE RECORDS SUMMARY | ~2018-07-29 | XMS | Clinical Summary ---
Demographics + + + | Address | [address] | | | [place] [address] | + + + | Home Phone | | + + + | Preferred Language | Unknown | + + + | Marital Status | | + + + | Sikh Affiliation | Unknown | + + + | Race | Unknown | + + + | Ethnic Group | Unknown | + + + Author + + + | Author | [facility] | | | and [place] | + + + | Organization | [facility] | | | and [place] | + + + | Address | Unknown | + + + | Phone | Unavailable | + + + Support + + + + + | Name | Relationship | Address | Phone | + + + + + | Jovani Wilson | ECON | [place] [address] | | + + + + + | Isidra Delgado | ECON | Unknown | | + + + + + Care Team Providers + +------+ + | Care Senior Oracle Applications Developer Name | Role | Phone | + +------+ + | Kj Austin MD | PP | | + +------+ + Allergies Not on File Medications Not on file Active Problems Not on file Encounters +--------+ + + + + | Date | Type | Specialty | Care Team | Description | +--------+ + + + + | 07/26/ | Telephone | | Rain, | Other | | 2019 | | | Jhon Macario MD | | +--------+ + + + + [...] recent travel history available. | + + Plan of Treatment + + + + + | Health Maintenance | Due Date | Last Done | Comments | + + + + + | Hepatitis C | | | | | Screening | [...] Cancer | | | | | Screening (Ages | 4 | | | | 50-74) | | | | + + + + + | Colorectal Cancer | | | | | Screening [...] filefrom Last 3 Months Insurance + +--------+ +--------+ +---------+--------+ | Payer | Benefi | Subscriber | Effect | Phone | Address | Type | | | t Plan | ID | marito | | | | | | / | | Dates | | | | | | Group | | | | | | + +--------+ +--------+ +---------+--------+ | [employer] | [employer] | [id number] | 01/10/ | [phone] | | Medica | | MEDICAID HMO | HEALTH | | 2018-P | 1 | | id | | | MDCD | | resent | | | | | | [place] | | | | | | + +--------+ +--------+ +---------+--------+ + +--------+ +--------+ + + | Guarantor Name | Accoun | Relation to | Date | Phone | Billing Address | | | t Type | Patient | of | | | | | | | | | | + +--------+ +--------+ + + | Kelly Coelho | Person | Self [birth year] | [address] | | [place] | al/Fam | | 1955 | [phone] | [place] | | | [place] | | | [address] (Home) | [address] | + +--------+ +--------+ + +"
--- OUTSIDE RECORDS SUMMARY | ~2018-07-29 | XMS | Encounter Summary ---
Demographics + + + | Address | [address] | | | [place] [address] | + + + | Home Phone | | + + + | Preferred Language | Unknown | + + + | Marital Status | Single | + + + | Christianity Affiliation | PRO | + + + [...] Team Providers + +------+ + | Care Property Administrator Name | Role | Phone | [...] 08/08/ | Telephone-S | Preoperative | Phone, [facility] | Pre-op evaluation | | 2009 | cheduled | Medicine Clinic at | [facility] | | | | | MPV Floor Day | Road [place], [place] | | | | | Stay [address] | [address] | | | | | [facility] | | | | | | Mailcode: [id number] | | | | | | [place] | | | | | | [address] [facility] [place] | | | | | | [address] | | | | | | [phone] | | | +--------+ + + + [...]
--- OUTSIDE RECORDS SUMMARY | ~2018-07-29 | XMS | Encounter Summary ---
Demographics + + + | Address | [address] | | | [place] [address] | + + + | Home Phone [...] Author + + + | Author | [facility] | + + + | Organization | [facility] | + + + | Address | Unknown | + + + | Phone | Unavailable | + + + Support + + +---------+ + | Name | Relationship | Address | Phone | + + +---------+ + | Isidra Wilson | ECON | Unknown | | + + +---------+ + Care Team Providers + +------+ + | Care Supervisor Specialty Plant Name | Role | Phone | + [...] | [facility] [address] | PILATES INSTRUCTOR [address] | Encounter for | | | | [facility] [address] | [facility] [address] | Long-Term (Current) | | | | Physicians [place] | [place], [place] | Use of | | | | [address] | [address] | Anticoagulants | | | | Physicians [address] | [phone] | | | | | [place], [place] | | | | | | [address] | | | | | | [phone] | | | +--------+---------+ + + + [...] in this encounter Progress Notes Amber Segovia, PILATES INSTRUCTOR - 12/12/2008 2:42 PM PDTCC: Established patient [...] and Sat while she is here in [place] but th is may change when she returns home. Will be heading home and follow up with Dr Thong carlton Wednesday12.13.08 at 10 am at the [facility] ([phone]). documented in this en counter Plan of [...] [facility] | 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
--- OUTSIDE RECORDS SUMMARY | ~2018-07-29 | XMS | Encounter Summary ---
Demographics + + + | Address | [address] | | | [place] [address] | + + + | Home Phone | | + + + | Preferred Language | Unknown | + + + | Marital Status | Single | + + + | Congregational Affiliation | PRO | + + + [...] Team Providers + +------+ + | Care Dry Color Tester Name | Role | Phone | + +------+ + | Jim Bergman MD | PCP | | + +------+ + Encounter Details +--------+ + + + + | Date | Type | Department | Care Team | Description | +--------+ + + + + | 12/03/ | Credit Administration Manager | Vascular Surgery | Tess Rae | Embolism (HCC) | | 2008 | | at [facility] 2nd Floor | | (Primary Dx) | | | | [address] | | | | | | [address] | | | | | | Mailcode: [id number] | | | | | | [place] | | | | | | [place], [place] | | | | | | [address] | | | | | | [phone] | | | +--------+ + + + [...]
--- OUTSIDE RECORDS SUMMARY | ~2018-07-29 | XMS | Clinical Summary ---
Demographics + + + | Address | [address] | | | [place] [address] | + + + | Home Phone | | + + + | Preferred Language | Unknown | + + + | Marital Status | | + + + | Anabaptist Affiliation | Unknown | + + + | Race | Unknown | + + + | Ethnic Group | Unknown | + + + Author + + + | Author | [facility] | + + + | Organization | [facility] | + + + | Address | Unknown | + + + | Phone | Unavailable | + + + Support + + +---------+ + | Name | Relationship | Address | Phone | + + +---------+ + | Isidra Delgado | ECON | Unknown | | + + +---------+ + Care Team Providers + +------+ + | Care Debt And Budget Counselor Name | Role | Phone | + [...] on Only | | | update from [place] | | | | | | [facility] | | | | | | [facility] | | | | | | [facility] 07/06/18) | +--------+ + + + + [...] [place] | | | | | | [address] | | | | | | | [...] +------+-------+ + | MEDICAID | [place] | [id number] | | | [address] | | | [place] | | | | [place] [address] | | | [place] | | | | [address] | | | TATTOO ARTIST | | | | | + +--------+ [...] | Self [birth year] Home: | [address] | | [place] | al/Fam | | [phone] | [phone] [place] | | | [place] | | | [phone] | [address] | + +--------+ +--------+ + +
--- OUTSIDE RECORDS SUMMARY | ~2018-07-29 | XMS | Encounter Summary ---
Demographics + + + | Address | [address] | | | [place] [address] | + + + | Home Phone | | + + + | Preferred Language | Unknown | + + + | Marital Status | Single | + + + | Faith Affiliation | PRO | + + + [...] | + + +---------+ + | Isidra Wilosn | ECON | Unknown | | + + +---------+ + Care Team Providers + +------+ + | Care General Engineer Name | Role | Phone | + [...] 2008 | Only | [address] [facility] | [phone] | | | | | [facility] | | | | | | [place], [place] | | | | | | [address] | | | +--------+ + + + [...] | | CARDIOLOGY | [address] | [address] | | + + + + + | [facility] | [address] | [place], [place] | | | CARDIOLOGY | [address] | [address] | | + + + + + documented in this encounter Visit Diagnoses Not on filedocumented in this encounter"
--- OUTSIDE RECORDS SUMMARY | ~2018-07-29 | XMS | Encounter Summary ---
Demographics + + + | Address | [address] | | | [place] [address] | + + + | Home Phone | | + + + | Preferred Language | Unknown | + + + | Marital Status | Single | + + + | Confucianism Affiliation | PRO | + + + | Race | White | + + + | Ethnic Group | Not or | + + + Author + + + | Author | [facility] | + + + | Organization | [facility] | + + + | Address | Unknown | + + + | Phone | Unavailable | + + + Support + + +---------+ + | Name | Relationship | Address | Phone | + + +---------+ + | Isidra Wilson | ECON | Unknown | | + + +---------+ + Care Team Providers + +------+ + | Care Assistant Professor Of History Name | Role | Phone | + [...] | PPV [address] | AGRICULTURAL SERVICES DIRECTOR [address] | Encounter for | | | | [facility] [facility] [address] | [address] | Long-Term (Current) | | | | Physicians Ernestina | [place], [place] | Use of | | | | [address] | [address] | Anticoagulants | | | | Physicians [facility] | [phone] | | | | | [place], [place] | | | | | | [address] | | | | | | [phone] | | | +--------+---------+ + + + [...] provider is unavailable, call and ask the mill tender second operator for the Chronic Specialist on-call. Rebecca Gonzales MS, AGRICULTURAL SERVICES DIRECTOR documented in this encounter Progress Notes Maria Eugenia Gonzales FNP - 12/10/2008 11:22 AM PDT Establised patient Kelly Mcbride was evaluated by myself today in the [facility]. HISTORY OF PRESENT ILLNESS (see [...] medication changes Reporting signs of bleeding Contacting [facility] staff ASSESSMENT AND PLAN: Anticoagulation Therapy: [...] provider is unavailable, call and ask the mill tender second operator for the Chronic Specialist on-call. Rebecca Gonzales MS, AGRICULTURAL SERVICES DIRECTOR documented in this encounter Plan of Treatment [...] - KATHLEEN | [address] | [place], [place] | | | [facility] | [facility] | [address] | | | TESTS | | | | + + + + + | [facility] | 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
--- OUTSIDE RECORDS SUMMARY | ~2018-07-29 | XMS | Encounter Summary ---
Demographics + + + | Address | [address] | | | [place] [address] | + + + | Home Phone | | + + + | Preferred Language | Unknown | + + + | Marital Status | Single | + + + | Restorationist Affiliation | PRO | + + + [...] Team Providers + +------+ + | Care Vamp Liner Name | Role | Phone | + [...] | | | | Avascular | Dept [facility] | MD Jhon | | | | | necrosis | [address] [facility] | [address] [facility] | | | | | ([facility]) | [address] | [place] | | | | | Aseptic | [address] [facility] | Rd [place], | | | | | necrosis of | HOSPITAL | [place] | | | | | other bone | [place] | [address] | | | | | site | [address] | Phone: | | | | | Procedures | Phone: | [phone] | | | | | REQUEST TO | [phone] | Fax: | | | | | SURGERY | | [phone] | | | | | SMALL ENGINE TRAINER | | | | | | | HI DRAIN | | | | | | | FINGER | | | | | | | ABSCESS,SIMP | | | | | | | LE HI DRAIN | | | | | | | FINGER | | | | | | | ABSCESS,COMP | | | | | | | LICATED HI | | | | | | | DRAIN HAND | | | | | | | TENDON | | | | | | | SHEATH HI | | | | | | | AMPUTATION | | | | | | | FINGER/THUMB | | | | | | | HI | | | | | | | AMPUTATION | | | | | | | FINGER/THUMB | | | | | | | HI | | | | | | | AMPUTATION | | | | | | | FINGER/THUMB | | | | | | | HI | | | | | | | AMPUTATION | | | | | | | FINGER/THUMB | | | +--------+--------+ + + + + Encounter Details +--------+ + + + + | Date | Type | Department | Care Team | Description | +--------+ + + + + | 11/15/ | Fusion Juncture Grinder | Orthopaedics at | Jhon Cabello MD | Avascular Necrosis | | 2008 | | [facility] [address] | [address] | ([facility]) (Primary Dx) | | | | Ave Mailcode: CH12A | [address] | | | | | [facility] | [place], [place] | | | | | and [place] | [address] | | | | | Floor [place], [place] | [phone] | | | | | [address] | | | | | | [phone] | | | +--------+ + + + [...]
--- OUTSIDE RECORDS SUMMARY | ~2018-07-29 | XMS | Encounter Summary ---
Demographics + + + | Address | [address] | | | [place] [address] | + + + | Home Phone | | + + + | Preferred Language | Unknown | + + + | Marital Status | Single | + + + | Voodoo Affiliation | PRO | + + + [...] Team Providers + +------+ + | Care Med Care Manager Name | Role | Phone | [...] + + | 11/06/ | Emergency | [facility] Emergency | | | | 2008 - | | Department [address] | | | | | | [address] | | | | 11/07/ | | [facility] | | | | 2008 | | [place] [address] | | | | | | [phone] | | | +--------+ + + + [...]
--- OUTSIDE RECORDS SUMMARY | ~2018-07-29 | XMS | Clinical Summary ---
Demographics + + + | Address | [address] | | | [place] [address] | + + + | Home Phone [...] Team Providers + +------+ + | Care Range Management Specialist Name | Role | Phone | + +------+ + | Jim Bergman MD | PP | | + +------+ + Source Comments MELANIE is fully live on both [facility] and [facility] Allergies No Known Allergies Medications + + [...] complicated | | + + + | technician terminal and repeater current use of anticoagulant therapy | 12/10/2008 [...] Patient | Explanation | | | | Lawyers | | + + + + + | Advance | | | | | Directives and | | | | | Living Will | | | | + + + + + | Power of | | | | | Clinical Trials Data Coordinator | | | | + + + [...]
--- OUTSIDE RECORDS SUMMARY | ~2018-07-29 | XMS | Encounter Summary ---
Demographics + + + | Address | [address] | | | [place] [address] | + + + | Home Phone [...] Team Providers + +------+ + | Care Tie Puller Name | Role | Phone | + [...] | | | | | finger(s) | [place], [place] | [address] | | | | | (complete) | [address] | for Health | | | | | (partial), | Phone: | and Healing, | | | | | complicated | [phone] | 1st Floor | | | | | Procedures | Fax: | [place], [place] | | | | | OCC HAND | [phone] | [address] | | | | | THERAPY | | Phone: | | | | | REFERRAL IN | | [phone] | | | | | PPV | | Fax: | | | | | [employer] A 4 | | [phone] | | | | | visits | [...] Finger-Complicated | | | | Services at [facility] | [address] [facility] | (Primary Dx) | | | | [facility] [address] [place], [place] | | | | | Modesto Diaz Mailcode: | [id number] | | | | | [address] for | | | | | | Health and Healing, | | | | | | 1st Floor [place], | | | | | | [place] [address] | | | | | | [phone] | | | +--------+---------+ + + + [...] Orders oan Pak - 01/02 3:54 PM [facility] HAND/OCCUPATIONAL THERAPY PROGRESS NOTE Name: Kelly Mcbride [...] and ROM F/u with hand therapy at [facility] in one month Treatment began: 200 Treatment ended: 230 Treatment 430 to 500 docum ented in this encounter Plan of Treatment + + +--------+ + + | Name | Type | Priori | Associated Diagnoses | Order Schedule | | | | ty | | | + + +--------+ + + | HI MANUAL THER | Procedures | Routin | Amputation | Ordered: 01/02/2009 | | TECH,1+REGIONS,EA 15 | | e | Finger-Complicated | | | MIN | | | | | + + +--------+ + + | HI THERAPEUTIC | Procedures | Routin | Amputation [...]
--- OUTSIDE RECORDS SUMMARY | ~2018-07-29 | XMS | Encounter Summary ---
Demographics + + + | Address | [address] | | | [place] [address] | + + + | Home Phone [...] + + + | Author | [facility] | + + + | Organization | [facility] | + + + | Address | Unknown | + + + | Phone | Unavailable | + + + Support + + +---------+ + | Name | Relationship | Address | Phone | + + +---------+ + | Isidra Wilson | ECON | Unknown | | + + +---------+ + Care Team Providers + +------+ + | Care Creative Services Writer Name | Role | Phone | + [...] | +--------+ + + + + | 02/01/ | Telephone | [facility] | Lauren Haley | Follow-up encounter | | 2008 | | [facility] | MD Chuyita | | | | | [place] [address] | | | | | | [address] | | | | | | Roxanna [address] [place] | | | | | | [place], | | | | | | [place] [address] | | | | | | [phone] | | | +--------+ + + + [...]
--- OUTSIDE RECORDS SUMMARY | ~2018-07-29 | XMS | Encounter Summary ---
Demographics + + + | Address | [address] | | | [place] [address] | + + + | Home Phone | | + + + | Preferred Language | Unknown | + + + | Marital Status | Single | + + + | Adventist Affiliation | PRO | + + + [...] Team Providers + +------+ + | Care Paleologist Name | Role | Phone | + [...] + + | 12/01/ | Documentati | [facility] | Kamila Costa | Pathology Report | | 2008 | on | [facility] | MD Karrie | | | | | [place] [address] | | | | | | [address] | | | | | | [address] | | | | | | Ernestina [place], | | | | | | [place] [address] | | | | | | [phone] | | | +--------+ + + + [...]
--- OUTSIDE RECORDS SUMMARY | ~2018-07-29 | XMS | Encounter Summary ---
Demographics + + + | Address | [address] | | | [place] [address] | + + + | Home Phone | | + + + | Preferred Language | Unknown | + + + | Marital Status | Single | + + + | Sabianist Affiliation | PRO | + + + [...] Team Providers + +------+ + | Care Reverser Name | Role | Phone | + [...] [id number] | | | | | | [place], [place] | | | | | | [address] | | | | | | [phone] | | | +--------+ + + + [...]
--- OUTSIDE RECORDS SUMMARY | ~2018-07-29 | XMS | Encounter Summary ---
Demographics + + + | Address | [address] | | | [place] [address] | + + + | Home Phone | | + + + | Preferred Language | Unknown | + + + | Marital Status | Single | + + + | Spiritism Affiliation | PRO | + + + [...] Team Providers + +------+ + | Care Rubber Heel And Sole Press Tender Name | Role | Phone | + [...] | | 2009 | | [facility] | MD Chy[place]a | | | | | [place] [address] | | | | | | [address] | | | | | | [address] | | | | | | Ernestina [place], | | | | | | [place] [address] | | | | | | [phone] | | | +--------+ + + + [...]
--- OUTSIDE RECORDS SUMMARY | ~2018-07-29 | XMS | Encounter Summary ---
Demographics + + + | Address | [address] | | | [place] [address] | + + + | Home Phone | | + + + | Preferred Language | Unknown | + + + | Marital Status | Single | + + + | Quaker Affiliation | PRO | + + + | Race | White | + + + | Ethnic Group | Not or | + + + Author + + + | Author | [facility] | + + + | Organization | [facility] | + + + | Address | Unknown | + + + | Phone | Unavailable | + + + Support + + +---------+ + | Name | Relationship | Address | Phone | + + +---------+ + | Isidra Wilson | ECON | Unknown | | + + +---------+ + Care Team Providers + +------+ + | Care Psychosocial Rehabilitation Counselor Name | Role | Phone | [...] 08/08/ | Telephone-S | Preoperative | Phone, [facility] | Pre-op evaluation | | 2009 | cheduled | Medicine Clinic at | [facility] | | | | | MPV Floor Day | Road [place], [place] | | | | | Stay [address] | [address] | | | | | [facility] | | | | | | Mailcode: [id number] | | | | | | [place] | | | | | | [address] [facility] [place] | | | | | | [address] | | | | | | [phone] | | | +--------+ + + + [...]
--- OUTSIDE RECORDS SUMMARY | ~2018-07-29 | XMS | Encounter Summary ---
Demographics + + + | Address | [address] | | | [place] [address] | + + + | Home Phone [...] Author | [facility] | + + + | Organization | [facility] | + + + | Address | Unknown | + + + | Phone | Unavailable | + + + Support + + +---------+ + | Name | Relationship | Address | Phone | + + +---------+ + | Isidra Wilson | ECON | Unknown | | + + +---------+ + Care Team Providers + +------+ + | Care Ethanol Operator Name | Role | Phone | + +------+ + | Jim Bergman MD | PCP | | + +------+ + Encounter Details +--------+ + + + + | Date | Type | Department | Care Team | Description | +--------+ + + + + | 12/03/ | Engraver Hand Soft Metals | Vascular Surgery | Tess Rae | Embolism (HCC) | | 2008 | | at [facility] 2nd Floor | | (Primary Dx) | | | | [address] | | | | | | [address] | | | | | | Mailcode: OP11 | | | | | | [place]io [place] | | | | | | [place], [place] | | | | | | [address] | | | | | | [phone] | | | +--------+ + + + [...]
--- OUTSIDE RECORDS SUMMARY | ~2018-07-29 | XMS | Encounter Summary ---
Demographics + + + | Address | [address] | | | [place] [address] | + + + | Home Phone | | + + + | Preferred Language | Unknown | + + + | Marital Status | Single | + + + | Pentecostalism Affiliation | PRO | + + + | Race | White | + + + | Ethnic Group | Not or | + + + Author + + + | Author | [facility] | + + + | Organization | [facility] | + + + | Address | Unknown | + + + | Phone | Unavailable | + + + Support + + +---------+ + | Name | Relationship | Address | Phone | + + +---------+ + | Isidra Wilson | ECON | Unknown | | + + +---------+ + Care Team Providers + +------+ + | Care Commercial Intern Name | Role | Phone | + [...] | PPV [address] | ELECTRONIC SYSTEMS TECHNICIAN [address] | Encounter for | | | | [facility] | [facility] [address] | Long-Term (Current) | | | | Physicians [place] | [place], [place] | Use of | | | | [address] | [address] | Anticoagulants | | | | Physicians [place] | [phone] | | | | | [place], [place] | | | | | | [address] | | | | | | [phone] | | | +--------+---------+ + + + [...] lack of desire/motivation, re ading inability, financial, sabianism and language. Referral to: None required out of the following: court interpreter services, home care, PT/Rehab, care managem ent/socially responsible investment adviser, community resources, investigations consultant, pain management, primary care physician . Preferred [...] + + + | [facility] | [address] | [place], [place] | | | [facility] | [address] | [address] | | | TESTS | | | | + + + + + | [facility] | 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
--- OUTSIDE RECORDS SUMMARY | ~2018-07-29 | XMS | Encounter Summary ---
Demographics + + + | Address | [address] | | | [place] [address] | + + + | Home Phone | | + + + | Preferred Language | Unknown | + + + | Marital Status | | + + + | Episcopalian Affiliation | Unknown | + + + | Race | Unknown | + + + | Ethnic Group | Unknown | + + + Author + + + | Author | [facility] | + + + | Organization | [facility] | + + + | Address | Unknown | + + + | Phone | Unavailable | + + + Support + + +---------+ + | Name | Relationship | Address | Phone | + + +---------+ + | Isidra Delgado | ECON | Unknown | | + + +---------+ + Care Team Providers + +------+ + | Care Territory Sales Manager Medical Name | Role | Phone | + +------+ + | Kj Austin MD | PCP | | + +------+ + Encounter Details +--------+ + + + + | Date | Type | Department | Care Team | Description | +--------+ + + + + | 07/26/ | Documentati | [facility] | Minh Horne DO | | | 2019 | on Only | [facility] | [address] | | | | | [address] | [place], [place] | | | | | [place], [place] | [address] | | | | | [address] | | | | | | [phone] | | | +--------+ + + + [...] [place] | | | | | | [address] | | | | | | | | +--------+---------+ + + + as of this encounter Visit Diagnoses Not on filein this encounter"
--- OUTSIDE RECORDS SUMMARY | ~2018-07-29 | XMS | Encounter Summary ---
Demographics + + + | Address | [address] | | | [place] [address] | + + + | Home Phone | | + + + | Preferred Language | Unknown | + + + | Marital Status | Single | + + + | Uatsdin Affiliation | PRO | + + + | Race | White | + + + | Ethnic Group | Not or | + + + Author + + + | Author | [facility] | + + + | Organization | [facility] | + + + | Address | Unknown | + + + | Phone | Unavailable | + + + Support + + +---------+ + | Name | Relationship | Address | Phone | + + +---------+ + | Isidra Wilson | ECON | Unknown | | + + +---------+ + Care Team Providers + +------+ + | Care Senior Lead Project Manager Name | Role | Phone | + +------+ + | No Pcp Per Patient | PCP | Unavailable | + +------+ + Encounter Details +--------+ + + + + | Date | Type | Department | Care Team | Description | +--------+ + + + + | 12/11/ | Documentati | [facility] | Shelby Mccormack | | | 2008 | on | Health Gynecology | MD Bud | | | | | Residents [address] | | | | | | [facility] | | | | | | Road Outpatient | | | | | | Clinic Building 2 | | | | | | Mailcode: [id number] | | | | | | [place], [place] | | | | | | [address] | | | | | | [phone] | | | +--------+ + + + [...]
--- OUTSIDE RECORDS SUMMARY | ~2018-07-29 | XMS | Encounter Summary ---
Demographics + + + | Address | [address] | | | [place] [address] | + + + | Home Phone | | + + + | Preferred Language | Unknown | + + + | Marital Status | | + + + | Sikhism Affiliation | Unknown | + + + | Race | Unknown | + + + | Ethnic Group | Unknown | + + + Author + + + | Author | [facility] | + + + | Organization | [facility] | + + + | Address | Unknown | + + + | Phone | Unavailable | + + + Support + + +---------+ + | Name | Relationship | Address | Phone | + + +---------+ + | Isidra Delgado | ECON | Unknown | | + + +---------+ + Care Team Providers + +------+ + | Care Police Captain Senior Name | Role | Phone | + +------+ + | Kj Austin MD | PCP | | + +------+ + Reason for Visit +--------+ + | Reason | Comments | +--------+ + | Other | Referral update from [facility] | | | Neurosurgery [...] | | [address] | | [facility] | | | | [place], [place] | | [facility] | | | | [address] | | Neurosurgery 07/06/18) | | | | [phone] | | | +--------+ + + + [...] [place] | | | | | | [address] | | | | | | | | +--------+---------+ + + + as of this encounter Visit Diagnoses Not on filein this encounter"
--- OUTSIDE RECORDS SUMMARY | ~2018-07-29 | XMS | Encounter Summary ---
Demographics + + + | Address | [address] | | | [place] [address] | + + + | Home Phone | | + + + | Preferred Language | Unknown | + + + | Marital Status | Single | + + + | Samaritan Affiliation | PRO | + + + | Race | White | + + + | Ethnic Group | Not or | + + + Author + + + | Author | [facility] | + + + | Organization | [facility] | + + + | Address | Unknown | + + + | Phone | Unavailable | + + + Support + + +---------+ + | Name | Relationship | Address | Phone | + + +---------+ + | Isidra Wilson | ECON | Unknown | | + + +---------+ + Care Team Providers + +------+ + | Care Animal Humane Agent Supervisor Name | Role | Phone | [...] | | 2008 | Visit | [facility] 2nd Floor | | Finger-Complicated | | | | [address] | | (Primary Dx); | | | | [address] | | Embolism (HCC) | | | | Mailcode: OP11 | | | | | | Physicians Ernestina | | | | | | [place], [place] | | | | | | [address] | | | | | | [phone] | | | +--------+---------+ + + + [...]
--- OUTSIDE RECORDS SUMMARY | ~2018-07-29 | XMS | Encounter Summary ---
Demographics + + + | Address | [address] | | | [place] [address] | + + + | Home Phone | | + + + | Preferred Language | Unknown | + + + | Marital Status | Single | + + + | Scientology Affiliation | PRO | + + + [...] Team Providers + +------+ + | Care Neuro Intensivist Physician Name | Role | Phone | [...] | +--------+ + + + + | 02/04/ | Documentati | [facility] | Lauren Haley | Gian (Certified | | 2008 | on | [facility] Moshe Boogie MD | letter) | | | | [place] [address] | | | | | | [address] | | | | | | [address] | | | | | | [place], | | | | | | [place] [address] | | | | | | [phone] | | | +--------+ + + + [...]
--- OUTSIDE RECORDS SUMMARY | ~2018-07-29 | XMS | Encounter Summary ---
Demographics + + + | Address | [address] | | | [place] [address] | + + + | Home Phone [...] Team Providers + +------+ + | Care Licensed Land Surveyor Name | Role | Phone | + +------+ + PCP | Unavailable | + +------+ + Encounter Details +--------+ + + + + | Date | Type | Department | Care Team | Description | +--------+ + + + + | 11/11/ | DELETED | UNKNOWN DEPARTMENT | Unknown . | LEGAL | | 2008 | TRANSCRIPTI | [address] | | | | | ON | [address] | | | | | | [place], [place] | | | | | | [address] | | | +--------+ + + + [...]
--- OUTSIDE RECORDS SUMMARY | ~2018-07-29 | XMS | Encounter Summary ---
Demographics + + + | Address | [address] | | | [place] [address] | + + + | Home Phone | | + + + | Preferred Language | Unknown | + + + | Marital Status | Single | + + + | Amish Affiliation | PRO | + + + [...] Team Providers + +------+ + | Care Chiropractic Care Name | Role | Phone | + +------+ + PCP | Unavailable | + +------+ + Encounter Details +--------+ + + + + | Date | Type | Department | Care Team | Description | +--------+ + + + + | 11/11/ | DELETED | UNKNOWN DEPARTMENT | Unknown . | LEGAL | | 2008 | TRANSCRIPTI | [address] [facility] [address] | | | | | ON | [address] | | | | | | [place], [place] | | | | | | [address] | | | +--------+ + + + [...]
--- OUTSIDE RECORDS SUMMARY | ~2018-07-29 | XMS | Encounter Summary ---
Demographics + + + | Address | [address] | | | [place] [address] | + + + | Home Phone | | + + + | Preferred Language | Unknown | + + + | Marital Status | Single | + + + | Restorationism Affiliation | PRO | + + + [...] Team Providers + +------+ + | Care Psychiatry Instructor Name | Role | Phone | [...] | Obstetrics & | Diagnoses | [employer] App[employer]icer | Sudha, | | | | Gynecology | vaginal | Onc Kpv | Lauren Boogie, | | | | | myomectomy | [address] | MD [address] | | | | | (removal of | [place] | [address] | | | | | a uterine | [address] | [facility] | | | | | mass) for | Michael Cooley | [place], [place] | | | | | which the | Pavilion | [address] | | | | | pathology | [place], [place] | | | | | | revealed a | [address] | | | | | | Smooth | Phone: | | | | | | Muscle Tumor | [phone] | | | | | | of | Fax: | | | | | | Uncertain | [phone] | | | | | | Malignant [...] | 2009 | Visit | [facility] | MD Chuyita | Dx) | | | | [place] [address] | | | | | | [address] | | | | | | Road Michael Cooley | | | | | | [place], | | | | | | [place] [address] | | | | | | [phone] | | | +--------+---------+ + + + [...] might be different fro m the original. 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 Ms. Mcbride initially presented to [facility] as a transfer in 11/18 08. 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 LAUREN HALEY MD [facility] [address] [place] [phone] documented in this en counter Plan of Treatment Not on filedocumented as of this encounter Procedures + +--------+ + + + | Procedure Name | Priori | Date/Time | Associated Diagnosis | Comments | | | ty | | | | + +--------+ + + + | TANK ERECTOR CYTOLOGY (PAP) | Routin | 07/05/2009 | Screening | Results for this | | | e | | | procedure are in the | | | | | | results section. | + +--------+ + + + documented in this encounter Results TANK ERECTOR CYTOLOGY (PAP) (07/05/2009) + + + + + + | Component | Value | Ref Range | Performed | Pathologist | | | | | At | Signature | + + + + + + | TANK ERECTOR | THIS IS AN HPV | | [...] Sharla | | | | | | CT(ASCP)Supervisor Agency Appointments | | | | | | Electronically [...] | + + + + + | [facility] | [address] | [place] [address] | | | PATHOLOGY | [address] | | | + + + + + documented in this encounter Visit Diagnoses + + | Diagnosis | + + | Screening - Primary Screening for unspecified condition | + + documented in this encounter
--- OUTSIDE RECORDS SUMMARY | ~2018-07-29 | XMS | Encounter Summary ---
Demographics + + + | Address | [address] | | | [place] [address] | + + + | Home Phone | | + + + | Preferred Language | Unknown | + + + | Marital Status | Single | + + + | Roman Catholic Affiliation | PRO | + + [...] Team Providers + +------+ + | Care Gallery Manager Name | Role | Phone | + +------+ + | Jim Bergman MD | PCP | | + +------+ + Reason for Visit +--------+ + | Reason | Comments | +--------+ + | Other | need for f/u appt. | +--------+ + Encounter Details +--------+ + + + + | Date | Type | Department | Care Team | Description | +--------+ + + + + | 06/18/ | Telephone | [facility] | Lauren Haley | Other (need for f/u | | 2009 | | [facility] | MD Chuyita | appt. ) | | | | [place] [address] | | | | | | [address] | | | | | | Roxanna Cooley | | | | | | [place], | | | | | | [place] [address] | | | | | | [phone] | | | +--------+ + + + [...]
--- OUTSIDE RECORDS SUMMARY | ~2018-07-29 | XMS | Encounter Summary ---
Demographics + + + | Address | [address] | | | [place] [address] | + + + | Home Phone | | + + + | Preferred Language | Unknown | + + + | Marital Status | Single | + + + | Judaism Affiliation | PRO | + + + [...] Providers + +------+ + | Care Supervisor Treating And Pumping Name | Role | Phone | + [...] | | | | | finger(s) | [place], [place] | [address] | | | | | (complete) | [address] | for Health | | | | | (partial), | Phone: | and Healing, | | | | | complicated | [phone] | 1st Floor | | | | | Procedures | Fax: | [place], [place] | | | | | OCC HAND | [phone] | [address] | | | | | THERAPY | | Phone: | | | | | REFERRAL IN | | [phone] | | | | | PPV | | Fax: | | | | | [employer] A 4 | | [phone] | | | | | visits | [...] Finger-Complicated | | | | Services at [facility] | [facility] | (Primary Dx) | | | | [facility] [address] [place], [place] | | | | | [place] Mailcode: | [address] | | | | | [address] for | | | | | | Health and Healing, | | | | | | 1st Floor [place], | | | | | | [place] [address] | | | | | | [phone] | | | +--------+---------+ + + + [...] Orders oan Pak - 01/02 3:54 PM [facility] HAND/OCCUPATIONAL THERAPY PROGRESS NOTE Name: Kelly Mcbride [...] and ROM F/u with hand therapy at [facility] in one month Treatment began: 200 Treatment ended: 230 Treatment 430 to 500 docum ented in this encounter Plan of Treatment + + +--------+ + + | Name | Type | Priori | Associated Diagnoses | Order Schedule | | | | ty | | | + + +--------+ + + | FL MANUAL THER | Procedures | Routin | Amputation | Ordered: 01/02/2009 | | TECH,1+REGIONS,EA 15 | | e | Finger-Complicated | | | MIN | | | | | + + +--------+ + + | FL THERAPEUTIC | Procedures | Routin | Amputation [...]
--- OUTSIDE RECORDS SUMMARY | ~2018-07-29 | XMS | Clinical Summary ---
Demographics + + + | Address | [address] | | | [place] [address] | + + + | Home Phone | | + + + | Preferred Language | Unknown | + + + | Marital Status | | + + + | Restorationist Affiliation | Unknown | + + + | Race | Unknown | + + + | Ethnic Group | Unknown | + + + Author + + + | Author | [facility] | | | and [place] | + + + | Organization | [facility] | | | and [place] | + + + | Address | Unknown | + + + | Phone | Unavailable | + + + Support + + + + + | Name | Relationship | Address | Phone | + + + + + | Jovani Wilson | ECON | [place] [address] | | + + + + + | Isidra Delgado | ECON | Unknown | | + + + + + Care Team Providers + +------+ + | Care Automatic Machines Supervisor Name | Role | Phone | [...] | [employer] | MODA | [id number] | 01/10/ | [phone] | | Medica | | MEDICAID HMO [...] Person | Self | [birth year] | | [address] | | [place] | al/Fam | | 1955 | [phone] | [place] | | | [place] | | | 8 (Home) | [address] | + +--------+ +--------+ + +"
--- OUTSIDE RECORDS SUMMARY | ~2018-07-29 | XMS | Encounter Summary ---
Demographics + + + | Address | [address] | | | [place] [address] | + + + | Home Phone [...] Team Providers + +------+ + | Care Hemodialysis Technician Name | Role | Phone | [...] 2008 | Only | [address] [facility] | [phone] | | | | | [facility] | | | | | | [place], [place] | | | | | | [address] | | | +--------+ + + + [...] | | CARDIOLOGY | [address] | [address] | | + + + + + | [facility] | [address] | [place], [place] | | | CARDIOLOGY | [address] | [address] | | + + + + + documented in this encounter Visit Diagnoses Not on filedocumented in this encounter"
--- OUTSIDE RECORDS SUMMARY | ~2018-07-29 | XMS | Clinical Summary ---
Demographics + + + | Address | [address] | | | [place] [address] | + + + | Home Phone | | + + + | Preferred Language | Unknown | + + + | Marital Status | | + + + | Advent Affiliation | Unknown | + + + | Race | Unknown | + + + | Ethnic Group | Unknown | + + + Author + + + | Author | [facility] | | | and [place] | + + + | Organization | [facility] | | | and [place] | + + + | Address | Unknown | + + + | Phone | Unavailable | + + + Support + + + + + | Name | Relationship | Address | Phone | + + + + + | Jovani Wilson | ECON | [place] [address] | | + + + + + | Isidra Delgado | ECON | Unknown | | + + + + + Care Team Providers + +------+ + | Care Full Service Vending Driver Name | Role | Phone | + [...] | [employer] | MODA | [id number] | 01/10/ | [phone] | | Medica | | MEDICAID HMO [...] Person | Self | [birth year] | | [address] | | K | al/Fam | | 1955 | [phone] | [place] | | | [place] | | | 8 (Home) | [address] | + +--------+ +--------+ + +"
--- OUTSIDE RECORDS SUMMARY | ~2018-07-29 | XMS | Encounter Summary ---
Demographics + + + | Address | [address] | | | [place] [address] | + + + | Home Phone | | + + + | Preferred Language | Unknown | + + + | Marital Status | Single | + + + | Latter-Day Affiliation | PRO | + + + [...] Team Providers + +------+ + | Care Risk Engineer Name | Role | Phone | [...] & | Diagnoses | Sudha, | [facility] [employer] [facility]c | | | | Gynecology | Uterine | Lauren Boogie, | [facility] [address] | | | | | corpus | [address] | | | | | cancer (HCC) | [address] | [facility] | | | | | Procedures | [facility] | Michael Cooley | | | | | REQUEST TO | [place], [place] | Pavilion | | | | | SURGERY | [address] | [place], [place] | | | | | PROGRAM OR PROJECT ADMINISTRATOR | | [address] | | | | | [place] VAG | | Phone: | | | | | HYST,UTERUS | | [phone] | | | | | >250 GMS,REM | | Fax: | | | | | TUBE/OVARY | | [phone] | + +--------+ + + + + Encounter Details +--------+ + + + + | Date | Type | Department | Care Team | Description | +--------+ + + + + | 07/19/ | Window Air Conditioner Installer | [facility] | Lauren Haley | 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
--- OUTSIDE RECORDS SUMMARY | ~2018-07-29 | XMS | Encounter Summary ---
Demographics + + + | Address | [address] | | | [place] [address] | + + + | Home Phone [...] Author + + + | Author | [facility] | + + + | Organization | [facility] | + + + | Address | Unknown | + + + | Phone | Unavailable | + + + Support + + +---------+ + | Name | Relationship | Address | Phone | + + +---------+ + | Isidra Wilson | ECON | Unknown | | + + +---------+ + Care Team Providers + +------+ + | Care Poacher Operator Name | Role | Phone | [...] + + | 12/01/ | Documentati | [facility] | Kamila Costa | Pathology Report | | 2008 | on | [facility] | MD Karrie | | | | | [place] [address] | | | | | | [address] | | | | | | Road Michael Cooley | | | | | | [place], | | | | | | [place] [address] | | | | | | [phone] | | | +--------+ + + + [...]
--- OUTSIDE RECORDS SUMMARY | ~2018-07-29 | XMS | Encounter Summary ---
Demographics + + + | Address | [address] | | | [place] [address] | + + + | Home Phone | | + + + | Preferred Language | Unknown | + + + | Marital Status | Single | + + + | Mandaeism Affiliation | PRO | + + + | Race | White | + + + | Ethnic Group | Not or | + + + Author + + + | Author | [facility] | + + + | Organization | [facility] | + + + | Address | Unknown | + + + | Phone | Unavailable | + + + Support + + +---------+ + | Name | Relationship | Address | Phone | + + +---------+ + | Isidra Wilson | ECON | Unknown | | + + +---------+ + Care Team Providers + +------+ + | Care Representative Government Relations Name | Role | Phone | + +------+ + PCP | Unavailable | + +------+ + Encounter Details +--------+ + + + + | Date | Type | Department | Care Team | Description | +--------+ + + + + | 11/11/ | DELETED | UNKNOWN DEPARTMENT | Unknown . | LEGAL | | 2008 | TRANSCRIPTI | [address] | | | | | ON | [address] | | | | | | [place], [place] | | | | | | [address] | | | +--------+ + + + [...]
--- OUTSIDE RECORDS SUMMARY | ~2018-07-29 | XMS | Encounter Summary ---
Demographics + + + | Address | [address] | | | [place] [address] | + + + | Home Phone | | + + + | Preferred Language | Unknown | + + + | Marital Status | Single | + + + | Denominational Affiliation | PRO | + + + | Race | White | + + + | Ethnic Group | Not or | + + + Author + + + | Author | [facility] | + + + | Organization | [facility] | + + + | Address | Unknown | + + + | Phone | Unavailable | + + + Support + + +---------+ + | Name | Relationship | Address | Phone | + + +---------+ + | Isidra Wilson | ECON | Unknown | | + + +---------+ + Care Team Providers + +------+ + | Care Care Director Rn Name | Role | Phone | + [...] [address] | | | | | | [facility] | | | | | | Road Outpatient | | | | | | Clinic Building [address] | | | | | | Mailcode: [id number] | | | | | | [place], [place] | | | | | | [address] | | | | | | [phone] | | | +--------+ + + + [...]
--- OUTSIDE RECORDS SUMMARY | ~2018-07-29 | XMS | Encounter Summary ---
Demographics + + + | Address | [address] | | | [place] [address] | + + + | Home Phone | | + + + | Preferred Language | Unknown | + + + | Marital Status | | + + + | Cheondoism Affiliation | Unknown | + + + | Race | Unknown | + + + | Ethnic Group | Unknown | + + + Author + + + | Author | [facility] | | | and [place] | + + + | Organization | [facility] | | | and [place] | + + + | Address | Unknown | + + + | Phone | Unavailable | + + + Support + + + + + | Name | Relationship | Address | Phone | + + + + + | Jovani Wilson | ECON | [place] [address] | | + + + + + | Isidra Delgado | ECON | Unknown | | + + + + + Care Team Providers + +------+ + | Care Leasing Consultant Name | Role | Phone | [...] [address] | | | | | [address] | [place] [address] | | | | | [place] [address] | [phone] | | | | | [phone] | | | +--------+ + + + [...]
--- OUTSIDE RECORDS SUMMARY | ~2018-07-29 | XMS | Encounter Summary ---
Demographics + + + | Address | [address] | | | [place] [address] | + + + | Home Phone | | + + + | Preferred Language | Unknown | + + + | Marital Status | Single | + + + | Baptism Affiliation | PRO | + + + [...] Team Providers + +------+ + | Care Fiscal Economist Name | Role | Phone | + +------+ + PCP | Unavailable | + +------+ + Reason for Referral Consult to [place] (Routine) +--------+--------+ + + + + | Status | Reason | Specialty | Diagnoses / | Referred By | Referred To | | | | | Procedures | Contact | Contact | +--------+--------+ + + + + | Closed | | Obstetrics & | Diagnoses | Moshe Cates | | | | Gynecology | Fibroid | MD Margie | Residents [facility] | | | | | Procedures | [address] | | | | | REQUEST TO | [address] | | | | | SURGERY | [address] | | | | | VOCATIONAL GUIDANCE COUNSELOR | [place] | Michael Cooley | | | | | [place] | [address] | Pavilion | | | | | MYOMECTOMY | Phone: | [facility] [place] | | | | | 1-4,W/TOT | [phone] | [address] | | | | | 250GMS/<,ABD | | Phone: | | | | | APPRCH | | [phone] | | | | | | | Fax: | | | | | | | [phone] | +--------+--------+ + + + + Encounter Details +--------+ + + + + | Date | Type | Department | Care Team | Description | +--------+ + + + + | 11/20/ | Thread Separator | [facility] | Margie Cates, | Fibroid (Primary Dx) | | 2008 | | [facility] | [address] | | | | | [place] [address] | [address] | | | | | [address] | [place] [address] | | | | | Road Michael Cooley | [phone] | | | | | [place], | | | | | | [place] [address] | | | | | | [phone] | | | +--------+ + + + [...] + | Diagnosis | + + | Fibroid - Primary Leiomyoma of uterus, unspecified | + + documented in this encounter"
--- OUTSIDE RECORDS SUMMARY | ~2018-07-29 | XMS | Encounter Summary ---
Demographics + + + | Address | [address] | | | [place] [address] | + + + | Home Phone [...] Team Providers + +------+ + | Care Solar Water Heater Installer Name | Role | Phone | + [...] [address] | | | | | | [address] | | | | | | [address] | | | | | | [place], | | | | | | [place] [address] | | | | | | [phone] | | | +--------+ + + + [...]
--- OUTSIDE RECORDS SUMMARY | ~2018-07-29 | XMS | Encounter Summary ---
Demographics + + + | Address | [address] | | | [place] [address] | + + + | Home Phone [...] Team Providers + +------+ + | Care Patient Care Associate Name | Role | Phone | + [...] [address] | | | | | MARINA SALES AND SERVICE SUPERVISOR | [place] | Michael Cooley | | | | | [place] | [address] | Pavilion | | | | | MYOMECTOMY | Phone: | [facility] [place] | | | | | 1-4,W/TOT | [phone] | [address] | | | | | 250GMS/<,ABD | | Phone: | | | | | APPRCH | | [phone] | | | | | | | Fax: | | | | | | | [phone] | +--------+--------+ + + + + Encounter Details +--------+ + + + + | Date | Type | Department | Care Team | Description | +--------+ + + + + | 11/20/ | Machinery Rigger | [facility] | Margie Cates, | Fibroid (Primary Dx) | | 2008 | | [facility] | [address] | | | | | [place] [address] | [address] | | | | | [address] | [place] [address] | | | | | Road Michael Cooley | [phone] | | | | | [place], | | | | | | [place] [address] | | | | | | [phone] | | | +--------+ + + + [...]
--- OUTSIDE RECORDS SUMMARY | ~2018-07-29 | XMS | Encounter Summary ---
Demographics + + + | Address | [address] | | | [place] [address] | + + + | Home Phone [...] Team Providers + +------+ + | Care Fire Protection Designer Name | Role | Phone | + [...] W Blake | | | | | [facility] | [facility] & | Calos Paulino | | | | | [facility] | [employer] | Road | | | | | | [place] | Mailcode: | | | | | | [address] | [id number] | | | | | | Calos Paulino | Physicians | | | | | | Rd | Pavilion | | | | | | [place], [place] | [place], [place] | | | | | | [address] | [address] | | | | | | | Phone: | | | | | | | [phone] | | | | | | | Fax: | | | | | | | [phone] | +--------+--------+ + + + + Diagnostic [...] | | | | Sam Sumner, | [facility] [address] | | | | | TRANSTHORACI | MD [place] | [address] | | | | | C | Health & | [employer] [facility] | | | | | ECHOCARDIOGR | Science | Mailcode: | | | | | AM, ADULT | [place] | [id number] | | | | | | [address] | Calos Begum | | | | | | Calos Paulino | Building | | | | | | Rd | [place], [place] | | | | | | [place], [place] | [address] | | | | | | [address] | Phone: | | | | | | | [phone] | +--------+--------+ + + + + Diagnostic [...] | | | | Sam Sumner, | [facility] [address] | | | | | TRANSTHORACI | MD [place] | [address] | | | | | C | Health & | [facility] | | | | | ECHOCARDIOGR | Science | Mailcode: | | | | | AM, ADULT | [place] | [address] [facility] | | | | | | [address] [facility] | [facility] | | | | | | [facility] | Building | | | | | | Rd | [place], [place] | | | | | | [place], [place] | [address] | | | | | | [address] | Phone: | | | | | | | [phone] | +--------+--------+ + + + + Reason [...] | | | | | | | [facility] | | | | | | | [facility] | | | | | | | [place], [place] | | | | | | | [address] Phone: | | | | | | | [phone] | | | | | | | Fax: | | | | | | | [phone] | +--------+--------+ + + + + Encounter [...] | 12/04/ | | KPV13 GAURAV | [address] | | | 2008 | | [place], | | | | | | [place] [address] | | | | | | [phone] | | | +--------+ + + + [...] on left forearm. She was airlifted to [facility] from [facility] . A duplex from that [...] and large fibroid uterus per Gynecology. Per Handbag Designer ecology, "Uterine artery embolization is an option [...] this lack of signal, she returned [facility] secondary to pulselessness distally on 11/08 [...] Yes ( ) No ( x) Call: [phone] If you have any of the following: Difficulty breathing or unusual shortness of breath Excessive bleeding, drainage at the operative site Fevers, chills, increased pain that is not relieved by pain medications Persistent nausea or vomiting Other SPECIFIC concerns, such as: None Follow Up Appointments: PCP: None. List of [facility] clinics provided to patient Other: Vascular Surgery 12/12 at 2:30 pm [phone], Lucio Omer, 3rd floor Orthopedic Hand Surgery Clinic, Dr Jhon Cabello 12/13 at 1015 , 12 floor o [facility] 12/06 at 1 pm [phone] Call Handbag Designer Clinic, Dr. Avery Lee, for appointment on to evaluate you for hysterectomy [phone], Women's Health, Patricia Omer Follow Up Tests: (Tests at [facility] must be entered into [email or web address]) None Condition On Discharge:stable Vital Signs at [...] on left forearm. She was airlifted to [facility] from [facility] . A duplex from that [...] and large fibroid uterus per Gynecology. Per Handbag Designer ecology, "Uterine artery embolization is an option [...] this lack of signal, she returned [facility] secondary to pulselessness distally on 11/08 [...] Yes ( ) No ( x) Call: [phone] If you have any of the following: Difficulty breathing or unusual shortness of breath Excessive bleeding, drainage at the operative site Fevers, chills, increased pain that is not relieved by pain medications Persistent nausea or vomiting Other SPECIFIC concerns, such as: None Follow Up Appointments: PCP: None. List of [facility] clinics provided to patient Other: Vascular Surgery 12/12 at 2:30 pm [phone], Lucio Omer, 3rd floor Orthopedic Hand Surgery Clinic, Dr Jhon Cabello 12/13 at 1015 , 12 floor [facility], [facility] Anticoagulation Clinic 12/06 at 1 pm [phone] Call Handbag Designer Clinic, Dr. Avery Lee, for appointment on to evaluate you for hysterectomy [phone], Women's Health, Patricia Omer Follow Up Tests: (Tests at [facility] must be entered into [facility]) None Condition On Discharge:stable Vital Signs at discharge as appropriate: Wt 69.3 kg (152 lbs 12.5 oz)( < 3 %ile), BP 112/71 , Pulse 85, Temperature 36.3 C (97.3 F), RR 13, SpO2 100%. Discharge Patient To: Home with son for assistance Does patient have a planned readmission: No Discharge Summary completed: yes Discharging Provider: Kaela Molina [facility] Date Completed: 12/04/08 Time Completed: 1100 [...] Everywhere.Adult Health Ad visor 2008.1: Blood [facility] Health Advisor 2008.1: Diabetes Mellitus: Type 2Adu Health Advisor 2008.1: Diabetes Overview (Living with Diabetes)Adult Health Advisor 2008.1: Diabetes: Food ManagementAdsanta [facility] Health Advisor 2008.1: Diabetes: Self Blood Glucose [...] hand OT once appropriate. Thank you. Pager #[phone] signed by Tasha Lopez at 12/03/2008 3:19 [...] teaching re: self administration along with a home care giver as she's only able to use 1 hand currently. Ensure th at she has a glucometer with strips at home. Notified Carlin Clemente Will sign off, please re-consult if needed. TORRES العراقي MD Revenue Collect[employer]et technical architect Clinical Hospitalist Service Division of Hospital Medicine Department of Medicine [facility] DEPARTMENT: Hosp ([facility])- [phone] Place of Service: IP - [id number] Modifiers:GC Resident Involved: No CPT: 51880 Subsequent Visit Prob Focused/Low Complexity 15 min [...] [place] the [place] [facility] However the patient's Hba1c is 14 and [...] s.c bid. D/c D5LR TORRES العراقي MD [employer] technical architect Clinical Hospitalist Service Division of [facility] Medicine Department of Medicine [facility] DEPARTMENT: Hosp ([facility])- [phone] Place of Service: - [id number] Modifiers:GC Resident Involved: No CPT: 72510 Subsequent Visit Prob Focused/Low Complexity 15 min [...] f rom the original. CLINICAL HOSPITALIST SERVICE ([facility])-PROGRESS NOTE Glycemic team follow up: HOSPITAL DAY: [...] not being able to afford the in [facility]. However the patient's Hba1c is 14 and [...] 24 U s.c bid. TORRES العراقي MD [facility] 13 Clinical Hospitalist Service [facility] DEPARTMENT: Hosp ([facility])- [phone] Place of Service: - [address] [facility] [phone] CPT: 29160 Subsequent Visit Prob Focused/Low Complexity 15 min [...] not being able to [place] the [place] [facility] However the patient's Hba1c is 14 and [...] insulin regimen for now. TORRES العراقي MD [facility] 13 Clinical Hospitalist Service [facility] EPIC DEPARTMENT: Hosp ([facility])- [phone] Place of Service: IP - [phone] [facility] [phone] CPT: 21680 Subsequent Visit Prob Focused/Low Complexity 15 min Total time spent on this encounter: 20 Torres Raya MD - 11/29/2008 9:03 AM PDT CLINICAL HOSPITALIST SERVICE ([facility])-PROGRESS NOTE Glycemic team follow up: HOSPITAL DAY: [...] 8 U tid a/c. TORRES العراقي MD [facility] 11K Clinical Hospitalist Service [facility] EPIC DEPARTMENT: Hosp ([facility])- [phone] Place of Service: [facility] [address] [facility] [phone] CPT: 69292 Subsequent Visit Prob Focused/Low Complexity 15 min [...] well with pain well controlled. Dalilarubinaangel Crowder [facility] 11K [address] 4a/uhs8j [facility] [address] Torres Raya MD - 11/28/2008 1:16 PM [...] not being [place] to [place] the [place] [facility] However the patient's Hba1c is 14 and [...] tid ac from am. TORRES العراقي MD [address] Clinical Hospitalist Service [facility] DEPARTMENT: Hosp ([facility])- [phone] Place of Service: - [address] [facility] [phone] Modifiers:GC Resident Involved: No CPT: 56466 Subsequent Visit Exp Prob Foc/Mod Complexity 25 [...] Deltoid Biceps Triceps Thumb Ext Digit Abd Homicide Squad Lieutenant - intact intact intact 0 intact - = Not examined Sensory: Intact to light touch dorsum and palm of hand Vascular: capillary refill < 1 second at amp tips Assesment/Plan: POD# 7 Status post L hand digit amp. OK to DC and follow up in clinic with [phone] from Ortho perspective Torres Raya MD - [...] she does need Insulin. TORRES العراقي MD [facility] 6A Clinical Hospitalist Service [facility] DEPARTMENT: Hosp ([facility])- [phone] Place of Service: [facility] [address] [facility] [phone] CPT: 07253 Subsequent Visit Prob Focused/Low Complexity 15 min [...] Deltoid Biceps Triceps Thumb Ext Digit Abd Homicide Squad Lieutenant - intact intact intact 0 intact - [...] use the left arm. PRITI FONSECA MD [address] Clinical Hospitalist Service [facility] DEPARTMENT: Hosp ([facility])- [phone] Place of Service: IP - [address] [facility] [phone] CPT: 55287 Subsequent Visit Prob Focused/Low Complexity 15 min [...] will be NPO again. PRITI FONSECA MD [facility] 11K Clinical Hospitalist Service [facility] DEPARTMENT: Hosp ([facility])- [phone] Place of Service: IP - [address] [facility] [phone] CPT: 80678 Subsequent Visit Prob Focused/Low Complexity 15 min [...] MD - 11/24/2008 11:43 AM PDT INPATIENT BUN MACHINE OPERATOR FOLLOW-UP NOTE Hospital Day:18 Author; XI GILMAN [...] f/u with gynecology as an outpatient for usp management, will plan to taper off pro vera as an outpt. If this higher-dose provera were stopped acutely, would likely precipitate vaginal withdrawal bleed. - will sign off for now, please call for any questions or concerns, or for vaginal bleeding soaking 1 pad/hr. - Patient may call #[phone] to schedule an appointment in the resident farm mechanic clinic at 2 -4 weeks after her [...] S. Will follow up ortho/hand recs Appreciate farm mechanic recs, will call for further significant vaginal bleeding. Will plan for STSG on Wednesday for coverage of forearm wound. Chely, Priti Yoon MD - 11/24/2008 8:11 AM PDT CLINICAL HOSPITALIST SERVICE ([facility])-PROGRESS NOTE Glycemic team follow up: HOSPITAL DAY: [...] the left arm. RN instructed.hui FONSECA MD [place] [address]K Clinical Hospitalist Service [facility] EPIC DEPARTMENT: Hosp ([facility])- [phone] Place of Service: - [address] [facility] [phone] CPT: 21599 Subsequent Visit Prob Focused/Low Complexity 15 min Total time spent on this encounter: 20' Xiomara Browne Md - 11/24/2008 7:36 AM PDT Ortho Progress Note 11/24/2008 Hospital Day #18 S: No events, pt reports no changes in L hand. Underwent farm mechanic surgery yesterday. O: Last Vitals: BP 108/64 [...] M D - 11/23/2008 11:51 PM PDT BUN MACHINE OPERATOR Post op check Delayed note entry for [...] to soak 1-2 large pads to call BUN MACHINE OPERATOR Will continue to follow for now. 1 1:56 PM Chely, Priti Yoon MD - 11/23/2008 6:30 PM PDTFormatting of this note might be di fferent from the original. CLINICAL HOSPITALIST SERVICE ([facility])-PROGRESS NOTE Glycemic team follow up: HOSPITAL DAY: [...] Would d/c IV fluids. PRITI FONSECA MD [place] [address] Clinical Hospitalist Service [facility] DEPARTMENT: Hosp ([facility])- [phone] Place of Service: IP - [address] [facility] [phone] CPT: 73689 Subsequent Visit Prob Focused/Low Complexity 15 min [...] le ft hand. To OR today with BUN MACHINE OPERATOR for myomectomy vs hysterectomy Will remove wound [...] the resident s note. AVERY LEE MD [facility] [address]K [address] 4a/uhs8j [facility] [place] [address] acob, Priti Yoon MD - 11/22/2008 8:26 [...] a HBA1c of > 14 [facility] to [facility] [place] tomorrow for gynecological surgery. Diet : [...] cover basal insulin requirement. PRITI FONSECA MD [address] Clinical Hospitalist Service [facility] DEPARTMENT: [facility] ([facility])- [phone] Place of Service: IP - [address] [facility] [phone] CPT: 41246 Subsequent Visit Prob Focused/Low Complexity 15 min Total time spent on this encounter: 20' Margie Gamboa MD - 11/22/2008 5:09 PM PDTBrief PM update note: Pt feeling ready for farm mechanic surgery tomorrow. Appreciate primary team ordering NPO, [...] 11/23 in the AM. 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 Handbag Designer to take pt to OR tomorrow for vaginal vs abdominal hysterectomy NPO p MN with MIVF Holding lovenox for now 4 u PRBC OCTOR for tomorrow Will try to change wound vac in OR after farm mechanic case while pt still sedated. Appreciate ortho/hand [...] the resident s note. AVERY LEE MD [facility] 11K [address] [facility] 4a/uhs8j [facility] [address] Misbah Dhillon MD - 11/21/2008 7:20 PM [...] changes. Sam Niño M.D. General Surgery Resident [facility] Pager: [phone] Nasra Gaona Md - 11/21/2008 11:45 AM [...] mg, 70 mg, Subcutaneous, BID, Kierra Donohue, [facility], Last Dose: 70 mg at [...] daily hand dressing changes. 4) Bleeding fibroid: Handbag Designer team plans vaginal myomectomy with possible abdominal hysterectom y if unable to resect by vaginal approach. Right now their plan is to go to the OR Wednesday v. Wednesday. We will continue to be in communication with them as far as definitive plans. Nasra Lamar, MSIV Chely, Priti Yoon MD - 11/21/2008 9:15 AM PDT CLINICAL HOSPITALIST SERVICE ([facility])-PROGRESS NOTE Glycemic team follow up: HOSPITAL DAY: [...] diabetic teaching by RN PRITI FONSECA MD [facility] 11K Clinical Hospitalist Service [facility] DEPARTMENT: Hosp ([facility])- [phone] Place of Service: IP - [phone] [facility] [phone] CPT: 26563 Subsequent Visit Prob Focused/Low Complexity 15 min [...] Deltoid Biceps Triceps Wrist Ext Digit Abd Homicide Squad Lieutenant Intact Intact Intact Intact 0 Intact - [...] - 2:27 PM PDT CLINICAL HOSPITALIST SERVICE ([facility])-PROGRESS NOTE Glycemic team follow up: HOSPITAL DAY: [...] Novolog will be held. BRYCE REYNA MD [facility] 11K Clinical Hospitalist Service [facility] DEPARTMENT: Hosp ([facility])- [phone] Place of Service: IP - [address] [facility] [phone] CPT: 42190 Subsequent Visit Prob Focused/Low Complexity 15 min [...] MD, Last Dose: 650 mg at 11/17/08 1187 aspirin EC tablet 325 mg, 325 mg, [...] mg, 70 mg, Subcutaneous, BID, Kierra Donohue [facility], Last Dose: 70 mg at [...] ortho team this afternoon. 2) Vaginal bleeding: Handbag Designer team still deciding definitive operative plan. We [...] MD Attending Physician: Roc Rae MD Interval farm mechanic hx: Pt with ongoing vaginal bleeding overnight. [...] difficulty in OR coordination. Margie Cates MD, [facility] Aly Delong MD - 11/19/2008 2:13 PM PDT VASCULAR SURGERY PROGRESS NOTE: Attending Physician: Roc Rae MD 11/19/2008 Subjective: No acute events overnight. Pt without complaints this AM. Medications: Current hospital medications: acetaminophen (aka TYLENOL) tablet 650 mg, 650 mg, Oral, Q4H PRN, Avery Almazan MD, Last Dose: 650 mg at 11/17/08 2217 aspirin EC tablet 325 mg, 325 mg, Oral, DAILY, Avery Alamzan MD, Last Dose: 325 mg at 0 [...] mg, 70 mg, Subcutaneous, BID, Kierra Donohue [facility], Last Dose: 70 mg at [...] washout. 2) Vaginal bleeding: Will defer to farm mechanic for plan. Will continue to watch crits [...] examinatio n and plan. ALY FLETCHER MD [facility] 11K [address] 4a/uhs8j [facility] [place] [address] Ulysses Black MD - 11/19/2008 9:56 AM [...] Deltoid Biceps Triceps Wrist Ext Digit Abd Homicide Squad Lieutenant Intact Intact Intact Intact 0 Intact - [...] at the middle p halanx this Wed. Handbag Designer would like to coordinate procedures, however, will be the th ird case on Wed and we have a fourth case to follow her and will be unable to have Handbag Designer sarai pino to follow. Bryce Nath MD - 8:11 AM PDT CLINICAL HOSPITALIST SERVICE ([facility])-PROGRESS NOTE Glycemic team follow up: HOSPITAL DAY: [...] NPH to 26 units BRYCE REYNA MD [facility] 11K Clinical Hospitalist Service [facility] EPIC DEPARTMENT: Hosp ([facility])- [phone] Place of Service: - [phone] [facility] [phone] CPT: 65201 Subsequent Visit Prob Focused/Low Complexity 15 min Total time spent on this encounter: 18 min Avery Matias MD - 0 11/19/2008 6:25 AM PDTI saw and evaluated the patient. I agree with the findings and the pl an of care as documented in the resident s note. I saw the patient at another time this evening, and have separate documentation AVERY LEE MD [place] [address] [address] 4a/uhs8j [facility] [place] [address] Emily Giraldo MD - 11/19/2008 6:25 AM [...] continue the same regimen. BRYCE REYNA MD Revenue Collect[employer] technical architect Clinical Hospitalist Service Division of Hospital Medicine Department of Medicine [facility] EPIC DEPARTMENT: Hosp ([facility])- [phone] Place of Service: IP - [id number] Modifiers:GC Resident Involved: No CPT: 15087 Subsequent Visit Prob Focused/Low Complexity 15 min [...] mg, 70 mg, Subcutaneous, BID, Kierra Donohue [facility], Last Dose: 70 mg at [...] Hct currently stable, will continue to follow. Handbag Designer plans to perform va ginal myomectomy of [...] her anticoagu lation.Will hold discussion with the Handbag Designer attending (Dr. Fritz Lee the week of [...] hysterectomy. Will discu ss plan further with Handbag Designer team on Wednesday. 3. Interventional Radiology notified about patient in the event patient has acute episode o f vaginal bleeding. Esther Gayle, Yasmeen Green 11/17/2008 5:23 PM PDTFormatting of this note might be different from the [facility]. INPATIENT PROGRESS NOTE Hospital [...] be amputation of prolapsing uterine fibr oid. Handbag Designer surgery team has not been coordinated yet. [...] cases will be rescheduled for Wednesday with Handbag Designer and Ortho. States she only us ed [...] mg, 70 mg, Subcutaneous, BID, Kierra Donohue, [facility], Last Dose: 70 mg at [...] Hct currently stable, will continue to follow. Handbag Designer plans to perform vaginal myomectomy o f [...] as it is cheaper. BRYCE REYNA MD [facility] 11K Clinical Hospitalist Service [facility] [place] EPIC DEPARTMENT: Hosp ([facility])- [phone] Place of Service: IP - [address] [facility] [phone] CPT: 26155 Subsequent Visit Prob Focused/Low Complexity 15 min [...] and can follow up Mon in clinic [phone].Elec tronically signed by Ulysses Pena MD at 11/16/2008 5:35 PM Bryce Nath MD - 009 3:01 PM PDT CLINICAL HOSPITALIST SERVICE ([facility])-PROGRESS NOTE Glycemic team follow up: HOSPITAL DAY: [...] 10 units TID . BRYCE REYNA MD [facility] 11K Clinical Hospitalist Service [facility] DEPARTMENT: Hosp ([facility])- [phone] Place of Service: - [address] [facility] [phone] CPT: 06652 Subsequent Visit Prob Focused/Low Complexity 15 min [...] mg, 70 mg, Subcutaneous, BID, Kierraher Donohue, [facility], Last Dose: 70 mg at [...] Vaginal Bleeding: Will continue to follow H/H. Handbag Designer team has been following and has been [...] Planning to take to OR tomorrow- if QUALITY CHECKER O-stop scheduled aspart. BRYCE REYNA MD [facility] 11K Clinical Hospitalist Service [facility] DEPARTMENT: Hosp ([facility])- [phone] Place of Service: IP - [address] [facility] [phone] CPT: 95709 Subsequent Visit Prob Focused/Low Complexity 15 min [...] Deltoid Biceps Triceps Wrist Ext Digit Abd Homicide Squad Lieutenant Intact Intact Intact Intact 0 Intact - [...] 11/14/2008 6:50 PM PDT CLINICAL HOSPITALIST SERVICE ([facility])-PROGRESS NOTE Glycemic team follow up: HOSPITAL DAY: [...] cover fasting blood sugars. BRYCE REYNA MD [facility] 11K Clinical Hospitalist Service [facility] DEPARTMENT: Hosp ([facility])- [phone] Place of Service: IP - [address] [facility] [phone] CPT: 56508 Subsequent Visit Prob Focused/Low Complexity 15 min [...] Deltoid Biceps Triceps Wrist Ext Digit Abd Homicide Squad Lieutenant Intact Intact Intact Intact 0 Intact - [...] clinic NEXT available when she is discharged [phone]. airBryce MD - 12:18 PM PDT CLINICAL [...] up of her diabetes with PCP. Need geriatric social worker help with medicati ons as she has no insurance. Patient would benefit from lisinopril 5 mg daily for microalbum inuria. BRYCE REYNA MD [facility] 11K Clinical Hospitalist Service [facility] DEPARTMENT: Hosp ([facility])- [phone] Place of Service: IP - [address] [facility] [phone] CPT: 14874 Subsequent Visit Prob Focused/Low Complexity 15 min [...] 1) Continue wound dressing changes 2) Follow-up farm mechanic recs for vaginal bleeding. Consider necessity of uterine artery embolization following massive bleedi ng in future. 4) Continue IV pain control as needed. Titrating off DAYCARE ASSISTANT with oxycodone. IV diluadid for breakthrough. Avery [...] Continue wound dressing changes daily. 2) Follow-up farm mechanic recs for vaginal bleeding. 3) Consider necessity of uterine artery embolization following massive bleeding in future . 4) Continue IV pain control as needed. Avery Almazan MS, MD Neurological Surgery, PGY-1 [id number] Nasra Gaona Md - 11/12/2008 7:10 PM [...] mg, 70 mg, Subcutaneous, BID, Kierra Donohue [facility], Last Dose: 70 mg at 11/12/08 0839 glucagon (aka GLUCAGEN) injection 1 mg, 1 mg, Intramuscular, PRN, Sam Niño MD glucose chewable tablet 15 g, 15 g, Oral, Q15MIN PRN, Sam Niño MD HYDROmorphone 0.5 mg/mL DAYCARE ASSISTANT infusion (ADULT, Pyxis) , , Intravenous, CONTINUOUS, [...] hand fascio tomies. 1) Pain control: continue DAYCARE ASSISTANT as pt pain well controlled today 2) Wound care: Will change vac tomorrow and continue a Tues/Fri schedule for changes. 3) Vaginal bleeding: We will continue to follow crits closely and transfuse as necessary. Handbag Designer team is following. An US study suggested fibroids as the culprit for her extensive bleed ing. Will defer to farm mechanic team as to whether this bleeding episode indicates need for uterine a rtery embolization. Narsa Lamar, MSIV Bernice Cornelius MD - 11/12/2008 [...] g, Oral, Q15MIN PRN HYDROmorphone 0.5 mg/mL DAYCARE ASSISTANT infusion (ADULT, Pyxis) , , Intravenous, CONTINUOUS [...] is les s expensive 5. Please involve geriatric social worker/case management as soon as possible to sort out social issu es (no PCP and no insurance). BERNICE ALVAREZ MD [facility] 11K Clinical Hospitalist Service [facility] DEPARTMENT: Hosp ([facility])- [phone] Place of Service: [facility] [phone] CPT: 67500 Subsequent Visit Prob Focused/Low Complexity 15 min [...] Deltoid Biceps Triceps Wrist Ext Digit Abd Homicide Squad Lieutenant - - - Intact 0 Intact - [...] g, Oral, Q15MIN PRN HYDROmorphone 0.5 mg/mL DAYCARE ASSISTANT infusion (ADULT, Pyxis) , , Intravenous, CONTINUOUS [...] flexor compartment fasciotomies. 1. Cont pain control (DAYCARE ASSISTANT). 2. Mobilize. 3. Will give 1U blood - tachy, anemic (hct: 22). 4. Cont local wound care, plan to change wound vac Wed vs . 5. Appreciative of Handbag Designer and Ortho rec's. 6. Pt stable enough for MRI if indicated. 7. Martinez status (tx orders written). Sam Niño M.D. General Surgery Resident [facility] Pager: [phone] Xi Stevenson MD - 11/11/2008 6:00 AM PDTI saw and examined Kelly Mcclellan with the residents on 11/11/08 and agree with the assesment and plan as outlined in this note and participated in the plann ing of her care. I spent 10 minutes at the bedside providing critical care exclusive of procedures. [id number] Jhon Duenas MD - 11/11/2008 6:00 AM [...] for transfer, pa in well-controlled c/ Dilaudid DAYCARE ASSISTANT. Wound Vac placed at medial fasciiotomy site. [...] @75 Out: UOP: 50-100ml/hr Pain control: Dilaudid DAYCARE ASSISTANT Medications: Current hospital medications: acetaminophen (aka TYLENOL) [...] PRN, Sam Niño MD HYDROmorphone 0.5 mg/mL DAYCARE ASSISTANT infusion (ADULT, Pyxis) , , Intravenous, CONTINUOUS, [...] acute neurologic issues, pain well-controlled on Dilaudid DAYCARE ASSISTANT, Distal movement of L hand flexors/extensors intact, [...] with h/o DUB worsened by heparin gtt, BUN MACHINE OPERATOR consulted and started progesterone, performed endometrial biopsy [...] the resident s note. Lo Castro MD Revenue Collector, Obstetrics & [place] [address] Shelby Almeida MD - 11/11/2008 4:01 AM [...] fibroid. Vaginal bleeding currently resolved. Recommendations regarding Handbag Designer issues: 1) Pelvic u/s done yesterday. See [...] will follow-up endometrial biopsy results when available. Handbag Designer always available in-house. Please contact us for [...] 400 Units/hr, Intravenous, CONTINUOUS HYDROmorphone 0.5 mg/mL DAYCARE ASSISTANT infusion (ADULT, Pyxis) , , Intravenous, CONTINUOUS [...] thrombectomy and fasciotomies. Stab le. 1. Cont DAYCARE ASSISTANT. 2. Bed rest (flat) for 6hrs now [...] martinez. Sam Niño M.D. General Surgery Resident [facility] Pager: [phone] oung, Doreen - 10/30 9:14 AM PDT [...] this morning, pain adequately controlled on dilaudid DAYCARE ASSISTANT. Sh e has had consistent biphasic doppler [...] 1512 ml/24 hr Drips: Pain Control: Diludid DAYCARE ASSISTANT Insulin @2 Heparin @400 U/hr Current hospital [...] Stopped at: 11/10/08 0800 HYDROmorphone 0.5 mg/mL DAYCARE ASSISTANT infusion (ADULT, Pyxis) , , Intravenous, CONTINUOUS, [...] and oriented. Pain adequately controlled on dilaudid DAYCARE ASSISTANT with 0.1 mg dosing . Distal movement [...] the resident s note. Lo Castro MD Revenue Collector, Obstetrics [place] [address] Xi Segundo MD - 11/10/2008 9:13 AM PDT INPATIENT PROGRESS NOTE Hospital Day:4 Author; CAMILLE ROBLERO MD Attending Physician:Madeline Weaver MD Interval Hx: Hct jania to 19 yesterday, transfused 1 unit PRBCs with appropriate increase i n Hct. Pt reports pain controlled with DAYCARE ASSISTANT. Scant vaginal bleeding, more like vaginal discharge [...] fibroid. Vaginal bleeding currently resolved. Recommendations regarding Handbag Designer issues: 1) Pelvic u/s done today to further evaluate anatomy and aid operative assessment; will con cook fast food MRI if indicated - report pending. 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 Pain well-controlled on Dilaudid DAYCARE ASSISTANT, monitoring H/H. Distal signals intact in left [...] Out: UOP: 30-50 ml/hr Pain control: Dilaudid DAYCARE ASSISTANT Current hospital medications: acetaminophen (aka TYLENOL) tablet [...] Units/hr at 11/09/08 1400 HYDROmorphone 0.5 mg/mL DAYCARE ASSISTANT infusion (ADULT, Pyxis) , , Intravenous, CONTINUOUS, [...] (aka NARCAN) injection, , Intravenous, PRN, Sam Nioñ MD ondansetron (aka ZOFRAN) injection 4 mg, [...] of the left radial and ulnar jessica petye 2. Initiation of a fibrinolytic infusion with TPA CXR (11/08/08) - Wnl. Assessment & Plan: Neuro: No acute neurologic issues, pain well-controlled on Dilaudid DAYCARE ASSISTANT, resting comfortabl y post-op. Distal movement of [...] history of increased bleed over past month, BUN MACHINE OPERATOR consulted and started proge sterone, performed endometrial [...] morning, pain is adequately controlled on dilaudid DAYCARE ASSISTANT. L radial artery has had consistent signal [...] EBL in OR yesterday Pain control: Dilaudid DAYCARE ASSISTANT with doses of 0.1mg Current hospital medications: [...] Units/hr at 11/09/08 1400 HYDROmorphone 0.5 mg/mL DAYCARE ASSISTANT infusion (ADULT, Pyxis) , , Intravenous, CONTINUOUS, [...] and oriented. Pain adequately controlled on dilaudid DAYCARE ASSISTANT with 0.1 mg dosin g. Distal movement [...] admission, likely related to vaginal bleeding - enterprise services manager following. 1U PRBCs ordered by vascular team [...] 1) Transfuse 1U for anemia 2) Appreciate farm mechanic/onc management of intrauterine bleeding. Uterine artery embolization i f necessary for acute bleed. 3) Continue daily dressing changes of fasciotomies and surgical incisions per vascular flores rgery. 4) Appreciate SICU team active management of ongoing critical care issues. Avery Almazan MS, MD Neurological Surgery, PGY-1 [phone] 3) Nasra Gaona Md - 11/09/2008 7:01 [...] infusion , 400 Units/hr, Intravenous, CONTINUOUS, Sam iNño MD, Last Rate: 4 mL/hr (11/09/08599), Last Dose: 400 Units/hr at 11/09/08 06 HYDROmorphone 0.5 mg/mL DAYCARE ASSISTANT infusion (ADULT, Pyxis) , , Intravenous, CONTINUOUS, [...] fascio tomies. 1) F/u uterine mass bx, farm mechanic team contining to follow pt for extensive [...] vaginal bleeding overnight, pain well-controlled on Dilaudid DAYCARE ASSISTANT , monitoring H/H. Distal signals intact in [...] EBL in OR yesterday Pain control: Dilaudid DAYCARE ASSISTANT with doses of 0.1mg Current hospital medications: [...] Units/hr at 11/09/08 1400 HYDROmorphone 0.5 mg/mL DAYCARE ASSISTANT infusion (ADULT, Pyxis) , , Intravenous, CONTINUOUS, [...] acute neurologic issues, pain well-controlled on Dilaudid DAYCARE ASSISTANT, resting comfortabl y post-op. Distal movement of [...] history of increased bleed over past month, BUN MACHINE OPERATOR consulted and started proge sterone, performed endometrial [...] 400 Units/hr, Intravenous, CONTINUOUS HYDROmorphone 0.5 mg/mL DAYCARE ASSISTANT infusion (ADULT, Pyxis) , , Intravenous, CONTINUOUS HYDROmorphone DAYCARE ASSISTANT infusion, , , insulin regular 1 unit/mL [...] endometrial bio psy. Neuro: pain control via DAYCARE ASSISTANT. Resp: Mobilize. CV: Permissive HTN. Keep SBP btw 120s-160s. Give fluids before pressors. GI/Hep: Stable. Ok for clears. Will advance in am. Vasc: Will cont to assess hand. Pt may need amputation in future, but will allow time for hand to declare itself. Cont heparin at 400U/hr. No need for PTT. Renal: Good UOP. Cont jefferson. Heme: Vag bleeding - Pt followed by Handbag Designer. Per Handbag Designer if pt has significant rebleed Angio/IR em bolization of uterine artery vs hysterectomy. Will discuss role of imaging (MRI) to aid Handbag Designer management as concern exists for poss sarcoma vs fibroid. Transfuse as needed. ID: Afebrile, +leukocytosis. Will cont to monitor. Will not start abx at this time. Dispo: Cont ICU care. Sam Niño M.D. General Surgery Resident [facility] Pager: [phone] Jhon Peter MD - 11/08/2008 5:54 PM [...] ry of increased bleed over past month, BUN MACHINE OPERATOR consulted and recommended progesterone - will per [...] the resident s note. NAGA CHANG MD barrel and receiver aligner Trauma/Critical Care Misbah Wheat MD - 11/07/2008 [...] of heparin through the catheter and ask BUN MACHINE OPERATOR to see her. We will stop the [...] Avery Almazan MS, MD Neurological Surgery, PGY-1 [phone] Eduardo Carias - 10/2008 2:41 PM PDTTransthoracic echocardiogram completed. Final report to follow. 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 Pager #[phone] signed by Tasha Lopez at 11/07/2008 9:07 [...] Deltoid Biceps Triceps Wrist Ext Digit Abd Homicide Squad Lieutenant - 5 5 5 5 4 - [...] | + +--------+ + + + | [place] MYOMECTOMY | Routin | 04/05/2015 | | [...] 12:25 PM PST)PROCEDURE NOTE (04/05/2015 12:15 PM PST)[place] MYOMECTOMY 1-4,W/TOT 250GMS/<,ABD APPRCH (04/05/2015 12:12 PM PST)ANESTHESIA/SEDATION (12/06/2008 10:10 AM PDT) + + + | Narrative | Performed At | + + + | A scan was | | | deleted from the Results section by P Interface [[id number]] on | | | 12/06/2008 at 10:10 AM (File: [id number]) | | + + + PATHOLOGY (12/06/2008 10:10 AM PDT) + + + | Narrative | Performed At | + + + | A scan was | | | deleted from the Results section by Jinn [[id number]] on | | | 12/06/2008 at 10:10 AM (File: [id number]) | | + + + RADIOLOGY (12/06/2008 10:10 AM PDT) + + + | Narrative | Performed At | + + + | A scan was | | | deleted from the Results section by [employer] Interface [[id number]] on | | | 12/06/2008 at 10:10 AM (File: [id number]) | | + + + ANESTHESIA/SEDATION (12/06/2008 10:09 AM PDT) + + + | Narrative | Performed At | + + + | A scan was | | | deleted from the Results section by P Interface [[id number]] on | | | 12/06/2008 at 10:09 AM (File: [id number]) | | + + + ANESTHESIA/SEDATION (12/06/2008 10:09 AM PDT) + + + | Narrative | Performed At | + + + | A scan was | | | deleted from the Results section by [employer] [[id number]] on | | | 12/06/2008 at 10:09 AM (File: [id number]) | | + + + ANESTHESIA/SEDATION (12/06/2008 10:09 AM PDT) + + + | Narrative | Performed At | + + + | A scan was | | | deleted from the Results section by [employer] [[id number]] on | | | 12/06/2008 at 10:09 AM (File: [id number]) | | + + + ANESTHESIA/SEDATION (12/06/2008 10:09 AM PDT) + + + | Narrative | Performed At | + + + | A scan was | | | deleted from the Results section by P Interface [[id number]] on | | | 12/06/2008 at 10:09 AM (File: [id number]) | | + + + ANESTHESIA/SEDATION (12/06/2008 10:09 AM PDT) + + + | Narrative | Performed At | + + + | A scan was | | | deleted from the Results section by [employer] [[id number]] on | | | 12/06/2008 at 10:09 AM (File: [id number]) | | + + + ANESTHESIA/SEDATION (12/06/2008 10:09 AM PDT) + + + | Narrative | Performed At | + + + | A scan was | | | deleted from the Results section by [employer] [[id number]] on | | | 12/06/2008 at 10:09 AM (File: [id number]) | | + + + ANESTHESIA/SEDATION (12/06/2008 10:09 AM PDT) + + + | Narrative | Performed At | + + + | | | + + + ANESTHESIA/SEDATION (12/06/2008 10:09 AM PDT) + + + | Narrative | Performed At | + + + | A scan was | | | deleted from the Results section by [employer] Interface [[id number]] on | | | 12/06/2008 at 10:09 AM (File: [id number]) | | + + + ANESTHESIA/SEDATION (12/06/2008 10:09 AM PDT) + + + | Narrative | Performed At | + + + | A scan was | | | deleted from the Results section by [employer] [[id number]] on | | | 12/06/2008 at 10:09 AM (File: [id number]) | | + + + ANESTHESIA/SEDATION (12/06/2008 10:09 AM PDT) + + + | Narrative | Performed At | + + + | A scan was | | | deleted from the Results section by P Interface [[id number]] on | | | 12/06/2008 at 10:09 AM (File: [id number]) | | + + + ANESTHESIA/SEDATION (12/06/2008 10:09 AM PDT) + + + | Narrative | Performed At | + + + | A scan was | | | deleted from the Results section by [employer] [[id number]] on | | | 12/06/2008 at 10:09 AM (File: [id number]) | | + + + ANESTHESIA/SEDATION (12/06/2008 10:09 AM PDT) + + + | Narrative | Performed At | + + + | A scan was | | | deleted from the Results section by [employer] Interface [[id number]] on | | | 12/06/2008 at 10:09 AM (File: [id number]) | | + + + TRANSTHORACIC ECHOCARDIOGRAM, ADULT (12/06/2008 10:08 AM PDT) + + + | Narrative | Performed At | + + + | A scan was | | | deleted from the Results section by P Interface [[id number]] on | | | 12/06/2008 at 10:08 AM (File: [id number]) | | + + + INR (12/04/2008 [...] DEPARTMENT OF | [address] | [place] [address] | | | PATHOLOGY | [address] | | | + + + + + | [facility] DEPARTMENT OF | [address] | [place] [address] | | | PATHOLOGY | [address] [...] | + + + + + | [facility] | [address] | [place] [address] | | | PATHOLOGY | [address] | | | + + + + + | [facility] | [address] | [place] [address] | | | PATHOLOGY | [address] [...] | + + + + + | [facility] DEPARTMENT OF | [address] | [place] [address] | | | PATHOLOGY | [address] | | | + + + + + | [facility] DEPARTMENT OF | [address] | [place] [address] | | | PATHOLOGY | [address] [...] | + + + + + | [facility] DEPARTMENT OF | [address] | [place] [address] | | | PATHOLOGY | [address] | | | + + + + + | [facility] DEPARTMENT OF | [address] | [place] [address] | | | PATHOLOGY | [address] [...] | + + + + + | [facility] DEPARTMENT OF | [facility] | [place] [address] | | | PATHOLOGY | [address] | | | + + + + + | [facility] DEPARTMENT OF | [address] | [place] [address] | | | PATHOLOGY | [address] [...] | + + + + + | [facility] | [address] | [place] [address] | | | PATHOLOGY | [address] | | | + + + + + | [facility] | [address] | [place] [address] | | | PATHOLOGY | [address] [...] | + + + + + | [facility] | [facility] [facility] | [place] [address] | | | PATHOLOGY | [address] | | | + + + + + | [facility] DEPARTMENT | [address] [place] [address] | [place] [address] | | | PATHOLOGY | [address] [...] | + + + + + | [facility] | [address] [facility] [address] [facility] | [place] [address] | | | PATHOLOGY | [address] | | | + + + + + | [facility] DEPARTMENT | [address] | [place] [address] | | | PATHOLOGY | [address] [...] | + + + + + | [facility] | [address] | [place] [address] | | | PATHOLOGY | [address] | | | + + + + + | [facility] | [address] | [place] [address] | | | PATHOLOGY | [address] [...] DEPARTMENT OF | [address] | [place] [address] | | | PATHOLOGY | [address] | | | + + + + + | [place] DEPARTMENT OF | [address] | [place] [address] | | | PATHOLOGY | [address] [...] | + + + + + | [facility] | [address] [place] [address] | [place] [address] | | | PATHOLOGY | [address] | | | + + + + + | [facility] | [address] [place] [address] | [place] [address] | | | PATHOLOGY | [address] [...] DEPARTMENT OF | [address] | [place] [address] | | | PATHOLOGY | [address] | | | + + + + + | [facility] DEPARTMENT OF | [address] | [place] [address] | | | PATHOLOGY | [address] [...] + | [place] DEPARTMENT OF | [address] [facility] [address] [facility] | [place] [address] | | | PATHOLOGY | [address] | | | + + + + + | [facility] DEPARTMENT OF | [address] [facility] [facility] [address] | [place] [address] | | | PATHOLOGY | [address] [...] | + + + + + | [facility] | [address] [place] [address] | [place] [address] | | | PATHOLOGY | [address] | | | + + + + + | [facility] | [address] [place] [address] | [place] [address] | | | PATHOLOGY | [address] [...] | + + + + + | [facility] | [address] [facility] [address] | [place] [address] | | | PATHOLOGY | [address] | | | + + + + + | [facility] DEPARTMENT | [address] | [place] [address] | | | PATHOLOGY | [address] [...] | + + + + + | [facility] DEPARTMENT OF | [address] | [place] [address] | | | PATHOLOGY | [address] | | | + + + + + | [facility] DEPARTMENT OF | [address] | [place] [address] | | | PATHOLOGY | [address] [...] | + + + + + | [facility] | [address] [facility] [address] | [place] [address] | | | PATHOLOGY | [address] | | | + + + + + | [facility] | [address] [facility] | [place] [address] | | | PATHOLOGY | [address] [...] | + + + + + | [facility] | [address] [place] [address] | [place] [address] | | | PATHOLOGY | [address] | | | + + + + + | [facility] | [address] [place] [address] | [place] [address] | | | PATHOLOGY | [address] [...] DEPARTMENT OF | [address] | [place] [address] | | | PATHOLOGY | [address] | | | + + + + + | [facility] DEPARTMENT OF | [address] | [place] [address] | | | PATHOLOGY | [address] [...] | + + + + + | [facility] DEPARTMENT OF | [facility] | [place] [address] | | | PATHOLOGY | [address] | | | + + + + + | [facility] DEPARTMENT OF | [address] | [place] [address] | | | PATHOLOGY | [address] [...] | + + + + + | [facility] | [address] | [place] [address] | | | PATHOLOGY | [address] | | | + + + + + | [facility] | [address] | [place] [address] | | | PATHOLOGY | [address] [...] | + + + + + | [facility] | [facility] | [place] [address] | | | PATHOLOGY | [address] | | | + + + + + | [facility] DEPARTMENT OF | [facility] | [place] [address] | | | PATHOLOGY | [address] [...] + + | [facility] DEPARTMENT OF | [address] | [place] [address] | | | PATHOLOGY | [address] | | | + + + + + | [facility] DEPARTMENT OF | [address] | [place] [address] | | | PATHOLOGY | [address] | | | + + + + + MAGNESIUM, PLASMA (11/30/2008 5:36 AM PDT) + +-------+ + + + | Component | Value | Ref Range | Performed | Pathologist | | | | | At | Signature | + +-------+ + + + | MAGNESIUM,P | 2.1 | 1.8 - 2.5 mg/dL | [facility] | | | LASMA | | | [...] | + + + + + | [facility] | [address] | [place] [address] | | | PATHOLOGY | [address] | | | + + + + + | [facility] | [facility] [address] | [place] [address] | | | PATHOLOGY | [address] [...] DEPARTMENT OF | [address] | [place] [address] | | | PATHOLOGY | [address] | | | + + + + + | [facility] DEPARTMENT OF | [address] | [place] [address] | | | PATHOLOGY | [address] [...] | | | TEST RESULT | into [facility]. | | DEPARTMENT | | | | | | OF | | | | | | PATHOLOGY | | + + + + + + | REFERRAL | Test performed by AMALIA | | [facility] | | | LAB NAME | [id number] [facility] | | DEPARTMENT | | | | [place] [address] | | OF | | | | [phone].[employer]. | | PATHOLOGY | | | | [...] DEPARTMENT OF | [address] | [place] [address] | | | PATHOLOGY | [address] | | | + + + + + | [facility] | [address] | [place] [address] | | | PATHOLOGY | [address] [...] Way Lab) | DEPARTMENT OF | | [facility] [address] | PATHOLOGY | | [place] [address] | | + + + + + + + + | Performing | Address | City/State/Zipcode | Phone Number | | Organization | | | | + + + + + | [facility] DEPARTMENT OF | [address] | [place] [address] | | | PATHOLOGY | [address] | | | + + + + + | [facility] DEPARTMENT OF | [address] | [place] [address] | | | PATHOLOGY | [address] [...] | + + + + + | [facility] | [address] [place] [address] | [place] [address] | | | PATHOLOGY | [address] | | | + + + + + | [facility] DEPARTMENT | [address] [place] [address] | [place] [address] | | | PATHOLOGY | [address] [...] 0.96Comment: Published | 0.82 - 1.54 | [facility] | | | ACTIVITY | reference ranges for | U/mL | DEPARTMENT | | | | children less than 6 mos | | OF | | | | can befound in the | | PATHOLOGY | | | | Hemostasis Section | | | | | | general instructions of | | | | | | the [facility] LabManual: | | | | | | [email or web address] | | | | | | [email or web address] | | | | + + + + + + + + | Specimen | + + | Blood - Blood | + + + + + + + | Performing | Address | City/State/Zipcode | Phone Number | | Organization | | | | + + + + + | [facility] DEPARTMENT OF | [address] | [place] [address] | | | PATHOLOGY | [address] | | | + + + + + | [facility] | [address] | [place] [address] | | | PATHOLOGY | [address] [...] by | | | | | | [id number] | | | | | | Zia Pearson, [facility], [place] | | | | | | [phone] | | | | | | [phone].[employer]. | | | | | | Lizbet [...] | + + + + + | [facility] | [address] | [place] [address] | | | PATHOLOGY | [address] [...] Way Lab) | DEPARTMENT OF | | [facility] | PATHOLOGY | | [address] | | | [place] [address] | | + + + + + + + + | Performing | Address | City/State/Zipcode | Phone Number | | Organization | | | | + + + + + | [facility] | [address] | [place] [address] | | | PATHOLOGY | [address] | | | + + + + + | [facility] | [address] [place] [address] | [place] [address] | | | PATHOLOGY | [address] [...] | DEPARTMENT OF | | Michel Lab) [facility] | PATHOLOGY | | [address] | | | [place] [address] | | + + + + + + + + | Performing | Address | City/State/Zipcode | Phone Number | | Organization | | | | + + + + + | [facility] DEPARTMENT OF | [facility] | [place] [address] | | | PATHOLOGY | [address] | | | + + + + + | [facility] DEPARTMENT OF | [facility] | [place] [address] | | | PATHOLOGY | [address] [...] nucleotide | | | | | | [id number]. Please note | | | | | | that thisassay only | | | | | | detects the [id number] | | | | | | point [...] of | | | | | | [id number] mutation in | | | | | [...] prothrombin | | | | | | [id number] mutation | | | | | | constitute approximately | | | | | | 2%of the normal white | | | | | | population(1,2). | | | | + + + + + + | DNA FOOTER | References: 1.) Addis et | | | | | | al. Blood 88, | | | | | | [phone] (1995). 2.) | | | | | [...] | | | | | determined bythe [facility] | | | | | | DNA [...] | | | | | 1987. The [facility] DNA | | | | | | [...] | + + + + + | [facility] | [address] | [place] [address] | | | PATHOLOGY | [address] [...] | | | | | determined bythe [facility] | | | | | | DNA [...] | | | | | 1987. The [facility] DNA | | | | | | [...] 88: | | | | | | [phone]). Should this | | | | | [...] [facility] DEPARTMENT | [address] | [place] [address] | | | PATHOLOGY | [address] [...] | + + + + + | [facility] | [facility] [facility] | [place] [address] | | | PATHOLOGY | [address] | | | + + + + + | [facility] | [address] | [place] [address] | | | PATHOLOGY | [address] [...] | + + + + + | [facility] DEPARTMENT | [address] [facility] | [place] [address] | | | PATHOLOGY | [address] | | | + + + + + | [facility] DEPARTMENT OF | [address] | [place] [address] | | | PATHOLOGY | [address] [...] | + + + + + | [facility] DEPARTMENT OF | [address] [facility] | [place] [address] | | | PATHOLOGY | [address] | | | + + + + + | [facility] DEPARTMENT OF | [address] [facility] | [place] [address] | | | PATHOLOGY | [address] [...] | + + + + + | [facility] DEPARTMENT OF | [address] | [place] [address] | | | PATHOLOGY | [address] | | | + + + + + | [facility] | [address] | [place] [address] | | | PATHOLOGY | [address] [...] + + | [facility] DEPARTMENT OF | [address] | [place] [address] | | | PATHOLOGY | [address] | | | + + + + + | [facility] DEPARTMENT OF | [address] | [place] [address] | | | PATHOLOGY | [address] [...] | + + + + + | [facility] | [address] [facility] | [place] [address] | | | PATHOLOGY | [address] | | | + + + + + | [facility] | [address] [facility] | [place] [address] | | | PATHOLOGY | [address] [...] | + + + + + | [facility] | [address] | [place] [address] | | | PATHOLOGY | [address] | | | + + + + + | [facility] | [facility] | [place] [address] | | | PATHOLOGY | [address] [...] | + + + + + | [facility] | [facility] | [place] [address] | | | PATHOLOGY | [address] | | | + + + + + | [facility] | [address] | [place] [address] | | | PATHOLOGY | [address] [...] | + + + + + | [facility] | [address] [facility] | [place] [address] | | | PATHOLOGY | [address] | | | + + + + + | [facility] | [address] [facility] | [place] [address] | | | PATHOLOGY | [address] [...] | + + + + + | [facility] DEPARTMENT OF | [address] | [place] [address] | | | PATHOLOGY | [address] | | | + + + + + | [facility] DEPARTMENT OF | [address] | [place] [address] | | | PATHOLOGY | [address] [...] | + + + + + | [facility] DEPARTMENT OF | [address] [facility] | [place] [address] | | | PATHOLOGY | [address] | | | + + + + + | [facility] DEPARTMENT OF | [address] [facility] | [place] [address] | | | PATHOLOGY | [address] [...] | + + + + + | [facility] DEPARTMENT OF | [facility] [facility] | [place] [address] | | | PATHOLOGY | [address] | | | + + + + + | [facility] DEPARTMENT OF | [facility] [facility] | [place] [address] | | | PATHOLOGY | [address] [...] | + + + + + | [facility] | [address] [facility] | [place] [address] | | | PATHOLOGY | [address] | | | + + + + + | [facility] | [address] [facility] | [place] [address] | | | PATHOLOGY | [address] [...] | + + + + + | [facility] DEPARTMENT OF | [address] [facility] | [place] [address] | | | PATHOLOGY | [address] | | | + + + + + | [facility] DEPARTMENT OF | [address] [facility] | [place] [address] | | | PATHOLOGY | [address] [...] | + + + + + | [facility] | [address] | [place] [address] | | | PATHOLOGY | [address] [...] | + + + + + | [facility] | [address] | [place] [address] | | | PATHOLOGY | [...] | + + + + + | [facility] | [address] [place] [address] | [place] [address] | | | PATHOLOGY | [address] | | | + + + + + | [facility] | [facility] [facility] | [place] [address] | | | PATHOLOGY | [address] [...] | + + + + + | [facility] | [address] | [place] [address] | | | PATHOLOGY | [address] | | | + + + + + | [facility] DEPARTMENT OF | [address] | [place] [address] | | | PATHOLOGY | [address] [...] | + + + + + | [facility] | [address] [place] [address] | [place] [address] | | | PATHOLOGY | [address] | | | + + + + + | [facility] | [address] [facility] | [place] [address] | | | PATHOLOGY | [address] [...] | + + + + + | [facility] DEPARTMENT OF | [address] | [place] [address] | | | PATHOLOGY | [address] | | | + + + + + | [facility] DEPARTMENT OF | [address] | [place] [address] | | | PATHOLOGY | [address] [...] | + + + + + | [facility] DEPARTMENT OF | [address] | [place] [address] | | | PATHOLOGY | [address] | | | + + + + + | [facility] DEPARTMENT OF | [address] | [place] [address] | | | PATHOLOGY | [address] [...] | + + + + + | [facility] DEPARTMENT OF | [address] [facility] | [place] [address] | | | PATHOLOGY | [address] | | | + + + + + | [facility] DEPARTMENT OF | [address] [facility] | [place] [address] | | | PATHOLOGY | [address] [...] | + + + + + | [facility] | [address] [facility] | [place] [address] | | | PATHOLOGY | [address] | | | + + + + + | [facility] | [address] [place] [address] | [place] [address] | | | PATHOLOGY | [address] [...] DEPARTMENT OF | [address] | [place] [address] | | | PATHOLOGY | [address] | | | + + + + + | [facility] DEPARTMENT OF | [address] | [place] [address] | | | PATHOLOGY | [address] [...] | + + + + + | [facility] DEPARTMENT | [address] [facility] | [place] [address] | | | PATHOLOGY | [address] | | | + + + + + | [facility] | [address] [facility] | [place] [address] | | | PATHOLOGY | [address] [...] | + + + + + | [facility] DEPARTMENT OF | [address] | [place] [address] | | | PATHOLOGY | [address] | | | + + + + + | [facility] DEPARTMENT OF | [address] | [place] [address] | | | PATHOLOGY | [address] [...] | + + + + + | [facility] DEPARTMENT OF | [address] | [place] [address] | | | PATHOLOGY | [address] | | | + + + + + | [facility] DEPARTMENT OF | [address] | [place] [address] | | | PATHOLOGY | [address] | | | + + + + + PHOSPHORUS, PLASMA (11/26/2008 6:47 AM PDT) + +-------+ + + + | Component | Value | Ref Range | Performed | Pathologist | | | | | At | Signature | + +-------+ + + + | PHOSPHORUS, | 3.9 | 2.4 - 4.7 mg/dL | [facility] | | | PLASMA | | | [...] | + + + + + | [facility] DEPARTMENT OF | [facility] | [place] [address] | | | PATHOLOGY | [address] | | | + + + + + | [facility] DEPARTMENT OF | [address] | [place] [address] | | | PATHOLOGY | [address] | | | + + + + + OPERATION RECORD (11/26/2008 12:00 AM PDT) + + + | Narrative | Performed At | + + + | [id number] | | | [id number] | | | [id number] [address] | | | [place] [id number] | | | Date: 11/27/2008 Attending | | | Surgeon: Misbah Quijano M.D. | | | Infantry Senior Sergeant(s): Yvette Torres | | | Aguilar Paula [...] well. | | | MISBAH QUIJANO MD barrel and receiver aligner [facility] / [id number] | | | / [id number] / [id number] / | | | | | + + + + + | Procedure Note | + + | Misbah Quijano MD - 11/27/2008 12:00 AM PDT [id number] | | [id number] [id number] [address] | | [id number] Date: 11/27/2008 Attending Surgeon: Misbah | | Renu Quijano M.D. Infantry Senior Sergeant(s): Yvette Paula M.D. | | Preoperative Diagnosis(es):Open [...] MISBAH QUIJANO MDProfessor of Surgery GLM / [id number] | | / [id number] / [id number] / T: 11/27/2008 | |Anesthesia: | |General [...] | | | |MISBAH QUIJANO MD | |barrel and receiver aligner | | | | | |GLM / HS | |[id number] / [id number] / [id number] / | | | | | | [...] DEPARTMENT OF | [address] | [place] [address] | | | PATHOLOGY | [address] | | | + + + + + | [facility] DEPARTMENT OF | [address] | [place] [address] | | | PATHOLOGY | [address] | | | + + + + + MAGNESIUM, PLASMA (11/25/2008 6:40 AM PDT) + +-------+ + + + | Component | Value | Ref Range | Performed | Pathologist | | | | | At | Signature | + +-------+ + + + | MAGNESIUM,P | 2.2 | 1.8 - 2.5 mg/dL | [facility] | | | LASMA | | | [...] | + + + + + | [facility] | [address] | [place] [address] | | | PATHOLOGY | [address] | | | + + + + + | [facility] | [address] | [place] [address] | | | PATHOLOGY | [address] [...] | + + + + + | [facility] DEPARTMENT | [address] [facility] | [place] [address] | | | PATHOLOGY | [address] | | | + + + + + | [facility] DEPARTMENT OF | [address] [facility] | [place] [address] | | | PATHOLOGY | [address] [...] | + + + + + | [facility] | [address] [facility] | [place] [address] | | | PATHOLOGY | [address] | | | + + + + + | [facility] | [address] [facility] | [place] [address] | | | PATHOLOGY | [address] [...] | + + + + + | [facility] | [address] | [place] [address] | | | PATHOLOGY | [address] | | | + + + + + | [facility] | [facility] [address] | [place] [address] | | | PATHOLOGY | [address] [...] | + + + + + | [facility] DEPARTMENT OF | [address] | [place] [address] | | | PATHOLOGY | [address] | | | + + + + + | [facility] DEPARTMENT OF | [address] | [place] [address] | | | PATHOLOGY | [address] [...] (H) | 60 - 99 mg/dL | [facility] | | | PLASMA | | | [...] | + + + + + | [facility] | [address] [facility] | [place] [address] | | | PATHOLOGY | [address] | | | + + + + + | [facility] | [address] [facility] | [place] [address] | | | PATHOLOGY | [address] | | | + + + + + PHOSPHORUS, PLASMA (11/24/2008 7:05 AM PDT) + +-------+ + + + | Component | Value | Ref Range | Performed | Pathologist | | | | | At | Signature | + +-------+ + + + | PHOSPHORUS, | 3.0 | 2.4 - 4.7 mg/dL | [facility] | | | PLASMA | | | [...] | + + + + + | [facility] DEPARTMENT OF | [address] [facility] | [place] [address] | | | PATHOLOGY | [address] | | | + + + + + | [facility] DEPARTMENT OF | [address] [facility] | [place] [address] | | | PATHOLOGY | [address] [...] DEPARTMENT OF | [address] | [place] [address] | | | PATHOLOGY | [address] | | | + + + + + | [facility] DEPARTMENT | [address] | [place] [address] | | | PATHOLOGY | [address] [...] | + + + + + | [facility] | [address] [facility] | [place] [address] | | | PATHOLOGY | [address] | | | + + + + + | [facility] | [facility] [facility] | [place] [address] | | | PATHOLOGY | [address] [...] | + + + + + | [facility] DEPARTMENT OF | [address] | [place] [address] | | | PATHOLOGY | [address] | | | + + + + + | [facility] DEPARTMENT OF | [address] | [place] [address] | | | PATHOLOGY | [address] [...] (H) | 60 - 99 mg/dL | [facility] | | | PLASMA | | | [...] | + + + + + | [facility] | [address] [facility] | [place] [address] | | | PATHOLOGY | [address] | | | + + + + + | [facility] | [address] [facility] | [place] [address] | | | PATHOLOGY | [address] [...] | + + + + + | [facility] | [address] [facility] | [place] [address] | | | PATHOLOGY | [address] | | | + + + + + | [facility] | [facility] [facility] | [facility] [place] [address] | | | PATHOLOGY | [address] [...] + + + + | PRODUCT | [id number] | | [facility] | | | UNIT [...] | + + + + + | [facility] | [address] [place] [address] | [place] [address] | | | PATHOLOGY | [address] | | | + + + + + | [facility] | [address] [place] [address] | [place] [address] | | | PATHOLOGY | [address] [...] + + + + | PRODUCT | [id number] | | [facility] | | | UNIT [...] | + + + + + | [facility] | [address] [facility] | [place] [address] | | | PATHOLOGY | [address] | | | + + + + + | [facility] | [address] [facility] | [place] [address] | | | PATHOLOGY | [address] [...] + + + + | PRODUCT | [id number] | | [facility] | | | UNIT [...] | + + + + + | [facility] DEPARTMENT OF | [address] | [place] [address] | | | PATHOLOGY | [address] | | | + + + + + | [facility] DEPARTMENT OF | [address] | [place] [address] | | | PATHOLOGY | [address] [...] + + + + | PRODUCT | [id number] | | [facility] | | | UNIT [...] | + + + + + | [facility] | [address] [facility] | [place] [address] | | | PATHOLOGY | [address] | | | + + + + + | [facility] | [address] [facility] | [place] [address] | | | PATHOLOGY | [address] [...] | + + + + + | [facility] DEPARTMENT OF | [address] | [place] [address] | | | PATHOLOGY | [address] | | | + + + + + | [facility] | [address] [facility] | [place] [address] | | | PATHOLOGY | [address] [...] | + + + + + | [facility] DEPARTMENT OF | [address] | [place] [address] | | | PATHOLOGY | [address] | | | + + + + + | [facility] DEPARTMENT OF | [address] | [place] [address] | | | PATHOLOGY | [address] [...] + | [facility] DEPARTMENT OF | [address] [facility] | [place] [address] | | | PATHOLOGY | [address] | | | + + + + + | [facility] DEPARTMENT OF | [address] [facility] | [place] [address] | | | PATHOLOGY | [address] [...] | + + + + + | [facility] DEPARTMENT OF | [address] [facility] | [place] [address] | | | PATHOLOGY | [address] | | | + + + + + | [facility] DEPARTMENT OF | [address] | [place] [address] | | | PATHOLOGY | [address] | | | + + + + + OPERATION RECORD (11/22/2008 12:00 AM PDT) + + + | Narrative | Performed At | + + + | [id number] | | | [id number] | | | [id number] [address] | | | [place] [phone] | | | Date: 11/23/2008 Attending | | | Surgeon: Avery Lee M.D. | | | Infantry Senior Sergeant(s): Preoperative Diagnosis(es): Submucous uterine | | | [...] by placing a weighted speculum in a [place], the cervix could be | | | [...] | Avery Lee M.D. SUPRIYA / VONNIE [id number] / [id number] / | | | [address] / | | + + + + + | Procedure Note | + + | Avery Lee MD - 11/23/2008 12:00 AM PDT [id number] | | [id number] [id number] [address] TEAGUE | | [phone] Date: 11/23/2008 Attending Surgeon: Avery | | Juan Lee M.D. Infantry Senior Sergeant(s): Preoperative Diagnosis(es):Submucous uterine leiomyoma | | with [...] cc. | | Avery Lee M.D.SUPRIYA / [id number] / [id number] / 40631 / T: 11/24/2008 | | | |Indications: [...] Lee M.D. | |JTJ / HS | |[id number] / [id number] / 21040 / | | | | | | | | | | | | | | | | | | | | | + + OPERATION RECORD (11/22/2008 12:00 AM PDT) + + + | Narrative | Performed At | + + + | [id number] | | | [id number] | | | [id number] [address] | | | [place] [phone] [id number] | | | Date: 11/21/2008 Attending | | | Surgeon: Jhon Cabello M.D. | | | Infantry Senior Sergeant(s): Misbah Benton | | | Aguilar Preoperative [...] M.D. | | | GDB / HS [id number] / [id number] / 64070 / T: | | | 12/04/2008 | | + + + + + | Procedure Note | + + | Misbah Benton MD - 11/21/2008 12:00 AM PDT [id number] | | [id number] [address] [place] | | [phone] [id number] Date: 11/21/2008 Attending Surgeon: | | Jhon Cabello M.D. Infantry Senior Sergeant(s): Misbah Benton M.D. | | Preoperative Diagnosis(es):Left [...] | | Jhon Cabello M.D. DANA / [id number] / [id number] / 68621 / T: 12/04/2008 | | | |necessary [...] | | | |GDB / HS | |[id number] / 285891 / 66192 / | | | | | | [...] [facility] | | | | | | (Information [facility]) | | | | | | [facility] | | | | | | [facility] | | | | | | [address] | | | | | | Information Assurance | | | | | | [place] | | | | | | , [place] [address] | | | | + + + + + + + + | Specimen | + + | | + + + + + + + | Performing | Address | City/State/Zipcode | Phone Number | | Organization | | | | + + + + + | [facility] DEPARTMENT OF | [address] | [place] [address] | | | PATHOLOGY | [address] [...] + + + + | PRODUCT | [id number] | | [facility] | | | UNIT [...] | + + + + + | [facility] DEPARTMENT | [address] | [place] [address] | | | PATHOLOGY | [address] | | | + + + + + | [facility] | [facility] | [place] [address] | | | PATHOLOGY | [address] [...] + + + + | PRODUCT | [id number] | | [facility] | | | UNIT [...] | + + + + + | [facility] DEPARTMENT OF | [address] | [place] [address] | | | PATHOLOGY | [address] | | | + + + + + | [facility] DEPARTMENT OF | [address] | [place] [address] | | | PATHOLOGY | [address] [...] | + + + + + | [facility] DEPARTMENT OF | [address] | [place] [address] | | | PATHOLOGY | [address] | | | + + + + + | [facility] DEPARTMENT OF | [address] | [place] [address] | | | PATHOLOGY | [address] [...] DEPARTMENT OF | [address] | [place] [address] | | | PATHOLOGY | [address] | | | + + + + + | [facility] DEPARTMENT | [address] | [place] [address] | | | PATHOLOGY | [address] [...] | + + + + + | [facility] | [address] [facility] | [place] [address] | | | PATHOLOGY | [address] | | | + + + + + | [facility] | [address] [place] [address] | [place] [address] | | | PATHOLOGY | [address] [...] | + + + + + | [facility] DEPARTMENT OF | [address] | [place] [address] | | | PATHOLOGY | [address] | | | + + + + + | [facility] DEPARTMENT OF | [address] | [place] [address] | | | PATHOLOGY | [address] [...] | + + + + + | [facility] | [address] [facility] | [place] [address] | | | PATHOLOGY | [address] | | | + + + + + | [facility] | [address] [facility] | [place] [address] | | | PATHOLOGY | [address] | | | + + + + + OPERATION RECORD (11/21/2008 12:00 AM PDT) + + + | Narrative | Performed At | + + + | [id number] | | | [id number] | | | [id number] ELE[facility]ERIO | | | [place] [id number] | | | Date: 11/21/2008 Attending | | | Surgeon: Jhon Cabello M.D. | | | [employer] Senior Sergeant(s): Ulysses Pena | | | Aguilar Preoperative [...] | Jhon Cabello M.D. ROSALEE / [id number] / [id number] / [id number] / | | | C: 12/13/2008 sheron | | + + + + + | Procedure Note | + + | Jhon Cabello MD - 11/21/2008 12:00 AM PDT [id number] | | [id number] ELEUTERIO TEAGUE | | [id number] Date: 11/21/2008 Attending Surgeon: | | Jhon Cabello M.D. [employer] Senior Sergeant(s): Ulysses Pena M.D. | | Preoperative Diagnosis(es):1. [...] stabilized. | | Jhon Cabello M.D.ROSALEE / [id number] / [id number] / [id number] / T: 12/13/2008C: | | 12/13/2008 dlinez [...] Cabello M.D. 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 | | | | | [...] | + + + + + | [facility] | [address] | [place] [address] | | | PATHOLOGY | [address] | | | + + + + + | [facility] | [address] | [place] [address] | | | PATHOLOGY | [address] [...] | + + + + + | [facility] | [address] | [place] [address] | | | PATHOLOGY | [address] | | | + + + + + | [facility] | [address] | [place] [address] | | | PATHOLOGY | [address] [...] | + + + + + | [facility] | [facility] | [place] [address] | | | PATHOLOGY | [address] | | | + + + + + | [facility] DEPARTMENT OF | [facility] | [place] [address] | | | PATHOLOGY | [address] [...] | + + + + + | [facility] DEPARTMENT OF | [address] | [place] [address] | | | PATHOLOGY | [address] | | | + + + + + | [place] DEPARTMENT OF | [address] | [place] [address] | | | PATHOLOGY | [address] [...] | + + + + + | [facility] | [address] | [place] [address] | | | PATHOLOGY | [address] | | | + + + + + | [facility] | [address] | [place] [address] | | | PATHOLOGY | [address] [...] DEPARTMENT OF | [address] | [place] [address] | | | PATHOLOGY | [address] | | | + + + + + | [facility] DEPARTMENT OF | [address] | [place] [address] | | | PATHOLOGY | [address] | | | + + + + + PHOSPHORUS, PLASMA (11/19/2008 4:00 AM PDT) + +-------+ + + + | Component | Value | Ref Range | Performed | Pathologist | | | | | At | Signature | + +-------+ + + + | PHOSPHORUS, | 4.5 | 2.4 - 4.7 mg/dL | [facility] | | | PLASMA | | | [...] | + + + + + | [facility] [facility] DEPARTMENT OF | [address] | [place] [address] | | | PATHOLOGY | [address] | | | + + + + + | [facility] | [address] | [place] [address] | | | PATHOLOGY | [address] [...] | + + + + + | [facility] | [address] | [place] [address] | | | PATHOLOGY | [address] | | | + + + + + | [facility] | [address] | [place] [address] | | | PATHOLOGY | [address] [...] | + + + + + | [facility] | [address] | [place] [address] | | | PATHOLOGY | [address] | | | + + + + + | [facility] | [address] | [place] [address] | | | PATHOLOGY | [address] [...] | + + + + + | [facility] | [address] | [place] [address] | | | PATHOLOGY | [address] | | | + + + + + | [facility] | [address] | [place] [address] | | | PATHOLOGY | [address] [...] DEPARTMENT OF | [address] | [place] [address] | | | PATHOLOGY | [address] | | | + + + + + | [facility] DEPARTMENT | [address] | [place] [address] | | | PATHOLOGY | [address] [...] DEPARTMENT OF | [address] | [place] [address] | | | PATHOLOGY | [address] | | | + + + + + | [facility] DEPARTMENT OF | [address] | [place] [address] | | | PATHOLOGY | [address] [...] | + + + + + | [facility] | [facility] [facility] [address] | [place] [address] | | | PATHOLOGY | [address] | | | + + + + + | [facility] DEPARTMENT OF | [facility] [facility] | [place] [address] | | | PATHOLOGY | [address] [...] DEPARTMENT OF | [address] | [place] [address] | | | PATHOLOGY | [address] | | | + + + + + | [facility] DEPARTMENT OF | [address] | [place] [address] | | | PATHOLOGY | [address] | | | + + + + + PHOSPHORUS, PLASMA (11/17/2008 4:29 AM PDT) + +-------+ + + + | Component | Value | Ref Range | Performed | Pathologist | | | | | At | Signature | + +-------+ + + + | PHOSPHORUS, | 2.9 | 2.4 - 4.7 mg/dL | [facility] | | | PLASMA | | | [...] | + + + + + | [facility] | [address] | [place] [address] | | | PATHOLOGY | [address] | | | + + + + + | [facility] | [address] | [place] [address] | | | PATHOLOGY | [address] [...] DEPARTMENT OF | [address] | [place] [address] | | | PATHOLOGY | [address] | | | + + + + + | [facility] DEPARTMENT | [address] | [place] [address] | | | PATHOLOGY | [address] [...] + | [facility] DEPARTMENT OF | [address] | [place] [address] | | | PATHOLOGY | [address] | | | + + + + + | [facility] DEPARTMENT OF | [address] | [place] [address] | | | PATHOLOGY | [address] [...] | + + + + + | [facility] DEPARTMENT OF | [address] | [place] [address] | | | PATHOLOGY | [address] | | | + + + + + | [facility] | [facility] | [place] [address] | | | PATHOLOGY | [address] [...] + + | [facility] DEPARTMENT OF | [address] | [place] [address] | | | PATHOLOGY | [address] | | | + + + + + | [facility] DEPARTMENT OF | [address] | [place] [address] | | | PATHOLOGY | [address] | | | + + + + + MAGNESIUM, PLASMA (11/16/2008 5:16 AM PDT) + +-------+ + + + | Component | Value | Ref Range | Performed | Pathologist | | | | | At | Signature | + +-------+ + + + | MAGNESIUM,P | 2.3 | 1.8 - 2.5 mg/dL | [facility] | | | LASMA | | | [...] | + + + + + | [facility] DEPARTMENT OF | [address] | [place] [address] | | | PATHOLOGY | [address] | | | + + + + + | [facility] | [address] | [place] [address] | | | PATHOLOGY | [address] [...] | + + + + + | [facility] | [address] | [place] [address] | | | PATHOLOGY | [address] | | | + + + + + | [facility] DEPARTMENT | [address] | [place] [address] | | | PATHOLOGY | [address] [...] | + + + + + | [facility] | [address] | [place] [address] | | | PATHOLOGY | [address] | | | + + + + + | [facility] | [address] [place] [address] | [place] [address] | | | PATHOLOGY | [address] [...] + + + + | PRODUCT | [id number] | | [facility] | | | UNIT [...] DEPARTMENT OF | [address] | [place] [address] | | | PATHOLOGY | [address] | | | + + + + + | [facility] DEPARTMENT OF | [address] | [place] [address] | | | PATHOLOGY | [address] [...] + + + + | PRODUCT | [id number] | | [facility] | | | UNIT [...] | + + + + + | [facility] DEPARTMENT OF | [address] | [place] [address] | | | PATHOLOGY | [address] | | | + + + + + | [facility] DEPARTMENT OF | [address] | [place] [address] | | | PATHOLOGY | [address] [...] | + + + + + | [facility] DEPARTMENT OF | [address] | [place] [address] | | | PATHOLOGY | [address] | | | + + + + + | [facility] DEPARTMENT OF | [address] | [place] [address] | | | PATHOLOGY | [address] [...] | + + + + + | [facility] DEPARTMENT | [address] | [place] [address] | | | PATHOLOGY | [address] | | | + + + + + | [facility] | [address] | [place] [address] | | | PATHOLOGY | [address] [...] DEPARTMENT OF | [address] | [place] [address] | | | PATHOLOGY | [address] | | | + + + + + | [facility] DEPARTMENT OF | [address] | [place] [address] | | | PATHOLOGY | [address] [...] | + + + + + | [facility] | [address] | [place] [address] | | | PATHOLOGY | [address] | | | + + + + + | [facility] | [address] | [place] [address] | | | PATHOLOGY | [address] [...] | + + + + + | [facility] | [address] | [place] [address] | | | PATHOLOGY | [address] [...] DEPARTMENT OF | [address] | [place] [address] | | | PATHOLOGY | [address] | | | + + + + + | [facility] DEPARTMENT | [address] | [place] [address] | | | PATHOLOGY | [address] [...] | + + + + + | [facility] | [address] | [place] [address] | | | PATHOLOGY | [address] | | | + + + + + | [facility] | [address] [place] [address] | [place] [address] | | | PATHOLOGY | [address] [...] DEPARTMENT OF | [address] | [place] [address] | | | PATHOLOGY | [address] | | | + + + + + | [facility] DEPARTMENT OF | [address] | [place] [address] | | | PATHOLOGY | [address] [...] (H) | 60 - 99 mg/dL | [facility] | | | PLASMA | | | [...] | + + + + + | [facility] | [address] | [place] [address] | | | PATHOLOGY | [address] | | | + + + + + | [facility] | [address] | [place] [address] | | | PATHOLOGY | [address] [...] | + + + + + | [facility] | [address] | [place] [address] | | | PATHOLOGY | [address] [...] | + + + + + | [facility] | [address] | [place] [address] | | | PATHOLOGY | [address] [...] RLB | | | | | | ([facility]) | | | | | | [place] | | | | | | [facility] | | | | | | [address] [address] | | | | | | [facility] | | | | | | [place] | | | | | | , [place] [address] | | | | + + + + + + + + | Specimen | + + | | + + + + + + + | Performing | Address | City/State/Zipcode | Phone Number | | Organization | | | | + + + + + | [facility] | [address] | [place] [address] | | | PATHOLOGY | [address] | | | + + + + + KASEY FLETON (11/13/2008 11:06 AM PDT) + + + [...] | + + + + + | [facility] DEPARTMENT OF | [address] | [place] [address] | | | PATHOLOGY | [address] | | | + + + + + | [facility] DEPARTMENT OF | [address] | [place] [address] | | | PATHOLOGY | [address] [...] | + + + + + | [facility] DEPARTMENT OF | [address] | [place] [address] | | | PATHOLOGY | [address] | | | + + + + + | [facility] DEPARTMENT OF | [address] | [place] [address] | | | PATHOLOGY | [address] [...] | + + + + + | [facility] DEPARTMENT OF | [facility] [facility] [address] | [place] [address] | | | PATHOLOGY | [address] | | | + + + + + | [facility] DEPARTMENT OF | [address] | [place] [address] | | | PATHOLOGY | [address] [...] DEPARTMENT OF | [address] | [place] [address] | | | PATHOLOGY | [address] | | | + + + + + | [facility] DEPARTMENT OF | [address] | [place] [address] | | | PATHOLOGY | [address] | | | + + + + + MAGNESIUM, PLASMA (11/13/2008 5:09 AM PDT) + +-------+ + + + | Component | Value | Ref Range | Performed | Pathologist | | | | | At | Signature | + +-------+ + + + | MAGNESIUM,P | 1.9 | 1.8 - 2.5 mg/dL | [facility] | | | LASMA | | | [...] | + + + + + | [facility] | [address] | [place] [address] | | | PATHOLOGY | [address] | | | + + + + + | [facility] | [address] | [place] [address] | | | PATHOLOGY | [address] [...] | + + + + + | [facility] DEPARTMENT OF | [address] | [place] [address] | | | PATHOLOGY | [address] | | | + + + + + | [facility] DEPARTMENT OF | [address] | [place] [address] | | | PATHOLOGY | [address] [...] | + + + + + | [facility] | [address] | [place] [address] | | | PATHOLOGY | [address] | | | + + + + + | [facility] | [address] | [place] [address] | | | PATHOLOGY | [address] [...] | + + + + + | [facility] DEPARTMENT OF | [address] | [place] [address] | | | PATHOLOGY | [address] | | | + + + + + | [facility] | [facility] [address] | [place] [address] | | | PATHOLOGY | [address] [...] | + + + + + | [facility] | [address] | [place] [address] | | | PATHOLOGY | [address] | | | + + + + + | [facility] | [address] | [place] [address] | | | PATHOLOGY | [address] [...] + | [facility] DEPARTMENT OF | [address] | [place] [address] | | | PATHOLOGY | [address] | | | + + + + + | [facility] DEPARTMENT OF | [address] | [place] [address] | | | PATHOLOGY | [address] [...] | + + + + + | [facility] DEPARTMENT OF | [address] | [place] [address] | | | PATHOLOGY | [address] | | | + + + + + | [facility] DEPARTMENT OF | [address] | [place] [address] | | | PATHOLOGY | [address] [...] | + + + + + | [facility] DEPARTMENT OF | [address] | [place] [address] | | | PATHOLOGY | [address] | | | + + + + + | [facility] DEPARTMENT | [address] | [place] [address] | | | PATHOLOGY | [address] [...] | + + + + + | [facility] | [address] | [place] [address] | | | PATHOLOGY | [address] | | | + + + + + | [facility] | [facility] [facility] [address] | [place] [address] | | | PATHOLOGY | [address] [...] | + + + + + | [facility] DEPARTMENT OF | [address] | [place] [address] | | | PATHOLOGY | [address] | | | + + + + + | [facility] DEPARTMENT OF | [address] | [place] [address] | | | PATHOLOGY | [address] [...] DEPARTMENT OF | [address] | [place] [address] | | | PATHOLOGY | [address] | | | + + + + + | [facility] DEPARTMENT | [address] | [place] [address] | | | PATHOLOGY | [address] [...] + + + + | PRODUCT | [id number] | | [facility] | | | UNIT [...] | + + + + + | [facility] DEPARTMENT | [address] | [place] [address] | | | PATHOLOGY | [address] | | | + + + + + | [facility] | [address] | [place] [address] | | | PATHOLOGY | [address] [...] + + + + | PRODUCT | [id number] | | [facility] | | | UNIT [...] | + + + + + | [facility] DEPARTMENT OF | [address] | [place] [address] | | | PATHOLOGY | [address] | | | + + + + + | [facility] DEPARTMENT | [address] | [place] [address] | | | PATHOLOGY | [address] [...] | + + + + + | [facility] | [facility] | [place] [address] | | | PATHOLOGY | [address] | | | + + + + + | [facility] | [facility] [address] | [place] [address] | | | PATHOLOGY | [address] [...] | + + + + + | [facility] | [address] | [place] [address] | | | PATHOLOGY | [address] | | | + + + + + | [facility] | [address] [place] [address] | [place] [address] | | | PATHOLOGY | [address] [...] DEPARTMENT OF | [address] | [place] [address] | | | PATHOLOGY | [address] | | | + + + + + | [facility] DEPARTMENT OF | [address] | [place] [address] | | | PATHOLOGY | [address] [...] DEPARTMENT OF | [address] | [place] [address] | | | PATHOLOGY | [address] | | | + + + + + | [facility] DEPARTMENT OF | [address] | [place] [address] | | | PATHOLOGY | [address] | | | + + + + + MAGNESIUM, PLASMA (11/11/2008 1:30 AM PDT) + +-------+ + + + | Component | Value | Ref Range | Performed | Pathologist | | | | | At | Signature | + +-------+ + + + | MAGNESIUM,P | 1.8 | 1.8 - 2.5 mg/dL | [facility] | | | LASMA | | | [...] | + + + + + | [facility] DEPARTMENT OF | [facility] | [place] [address] | | | PATHOLOGY | [address] | | | + + + + + | [facility] DEPARTMENT OF | [address] | [place] [address] | | | PATHOLOGY | [address] [...] | + + + + + | [facility] DEPARTMENT OF | [address] | [place] [address] | | | PATHOLOGY | [address] | | | + + + + + | [facility] DEPARTMENT OF | [address] | [place] [address] | | | PATHOLOGY | [address] [...] | + + + + + | [facility] DEPARTMENT OF | [address] | [place] [address] | | | PATHOLOGY | [address] | | | + + + + + | [facility] | [address] | [place] [address] | | | PATHOLOGY | [address] [...] Corrected 11/11/08 03:19: HUI MITCHELL, prev report: Trugn | MELANIE | | review pending. | DEPARTMENT OF | | | PATHOLOGY | + + + + + + + + | Performing | Address | City/State/Zipcode | Phone Number | | Organization | | | | + + + + + | [facility] DEPARTMENT OF | [facility] [facility] [address] | [place] [address] | | | PATHOLOGY | [address] | | | + + + + + | [facility] DEPARTMENT OF | [address] | [place] [address] | | | PATHOLOGY | [address] [...] | + + + + + | [facility] | [address] | [place] [address] | | | PATHOLOGY | [address] | | | + + + + + | [facility] | [address] | [place] [address] | | | PATHOLOGY | [address] [...] | + + + + + | [facility] DEPARTMENT OF | [address] | [place] [address] | | | PATHOLOGY | [address] | | | + + + + + | [facility] DEPARTMENT OF | [address] | [place] [address] | | | PATHOLOGY | [address] [...] | + + + + + | [facility] DEPARTMENT | [address] | [place] [address] | | | PATHOLOGY | [address] | | | + + + + + | [facility] | [address] | [place] [address] | | | PATHOLOGY | [address] [...] | | + +---------+ + + | [facility] DEPARTMENT OF | | | | | [...] | | + +---------+ + + | [facility] DEPARTMENT OF | | | | | [...] | + + + + + | [facility] DEPARTMENT OF | [address] | [place] [address] | | | PATHOLOGY | [address] | | | + + + + + | [facility] DEPARTMENT | [address] | [place] [address] | | | PATHOLOGY | [address] [...] | + + + + + | [facility] DEPARTMENT OF | [address] | [place] [address] | | | PATHOLOGY | [address] | | | + + + + + | [facility] DEPARTMENT OF | [facility] [facility] | [place] [address] | | | PATHOLOGY | [address] [...] | + + + + + | [facility] DEPARTMENT OF | [address] | [place] [address] | | | PATHOLOGY | [address] | | | + + + + + | [facility] DEPARTMENT OF | [address] | [place] [address] | | | PATHOLOGY | [address] [...] | + + + + + | [facility] | [address] | [place] [address] | | | PATHOLOGY | [address] | | | + + + + + | [facility] | [address] [place] [address] [address] | [place] [address] | | | PATHOLOGY | [address] [...] OF | [address] | [place] [address] | | | PATHOLOGY | [address] | | | + + + + + | [facility] DEPARTMENT OF | [address] | [place] [address] | | | PATHOLOGY | [address] | | | + + + + + PHOSPHORUS, PLASMA (11/10/2008 3:00 AM PDT) + +---------+ + + + | Component | Value | Ref Range | Performed | Pathologist | | | | | At | Signature | + +---------+ + + + | PHOSPHORUS, | 2.2 (L) | 2.4 - 4.7 mg/dL | [facility] | | | PLASMA | | | [...] | + + + + + | [facility] DEPARTMENT OF | [facility] | [place] [address] | | | PATHOLOGY | [address] | | | + + + + + | [facility] DEPARTMENT OF | [facility] | [place] [address] | | | PATHOLOGY | [address] [...] DEPARTMENT OF | [address] | [place] [address] | | | PATHOLOGY | [address] | | | + + + + + | [facility] DEPARTMENT OF | [address] | [place] [address] | | | PATHOLOGY | [address] [...] + + + + | PRODUCT | [id number] | | [facility] | | | UNIT [...] | + + + + + | [facility] DEPARTMENT OF | [address] | [place] [address] | | | PATHOLOGY | [address] | | | + + + + + | [facility] | [facility] | [place] [address] | | | PATHOLOGY | [address] [...] + | [facility] DEPARTMENT OF | [address] [facility] | [place] [address] | | | PATHOLOGY | [address] | | | + + + + + | [facility] DEPARTMENT OF | [address] | [place] [address] | | | PATHOLOGY | [address] | | | + + + + + HEMATOCRIT (11/09/2008 4:00 PM PDT) + + + + + + | Component | Value | Ref Range | Performed | Pathologist | | | | | At | Signature | + + + + + + | HEMATOCRIT | Not Recd | 36.0 - 46.0 % | [facility] | | | | | | DEPARTMENT [...] | + + + + + | [facility] DEPARTMENT OF | [facility] | [place] [address] | | | PATHOLOGY | [address] | | | + + + + + | [facility] DEPARTMENT OF | [address] | [place] [address] | | | PATHOLOGY | [address] [...] | + + + + + | [facility] | [address] | [place] [address] | | | PATHOLOGY | [address] | | | + + + + + | [facility] | [address] [facility] | [place] [address] | | | PATHOLOGY | [address] [...] | + + + + + | [facility] DEPARTMENT OF | [address] [facility] [address] | [place] [address] | | | PATHOLOGY | [address] | | | + + + + + | [facility] DEPARTMENT OF | [address] [facility] | [place] [address] | | | PATHOLOGY | [address] [...] | + + + + + | [facility] | [address] [facility] | [place] [address] | | | PATHOLOGY | [address] | | | + + + + + | [facility] | [address] [facility] [facility] | [place] [address] | | | PATHOLOGY | [address] [...] | + + + + + | [facility] DEPARTMENT OF | [address] | [place] [address] | | | PATHOLOGY | [address] | | | + + + + + | [facility] DEPARTMENT OF | [address] | [place] [address] | | | PATHOLOGY | [address] [...] | + + + + + | [facility] DEPARTMENT | [address] | [place] [address] | | | PATHOLOGY | [address] | | | + + + + + | [facility] | [address] [address] [facility] | [place] [address] | | | PATHOLOGY | [address] [...] + | [place] DEPARTMENT OF | [address] [address] | [place] [address] | | | PATHOLOGY | [address] | | | + + + + + | [facility] DEPARTMENT OF | [address] | [facility] [place] [address] | | | PATHOLOGY | [address] [...] DEPARTMENT OF | [address] | [place] [address] | | | PATHOLOGY | [address] | | | + + + + + | [facility] DEPARTMENT OF | [address] | [place] [address] | | | PATHOLOGY | [address] [...] | + + + + + | [facility] DEPARTMENT | [address] [place] [address] | [place] [address] | | | PATHOLOGY | [address] | | | + + + + + | [place] DEPARTMENT OF | [facility] [facility] | [place] [address] | | | PATHOLOGY | [address] [...] DEPARTMENT OF | [address] | [place] [address] | | | PATHOLOGY | [address] | | | + + + + + | [facility] | [address] [facility] [address] [facility] | [place] [address] | | | PATHOLOGY | [address] | | | + + + + + OPERATION RECORD (11/09/2008 12:00 AM PDT) + + + | Narrative | Performed At | + + + | [id number] | | | [id number] | | | [id number] [address] | | | KELLY [id number] | | | Date: 11/08/2008 Attending | | | Surgeon: Roc Rae M.D. | | | [employer] Sergeant(s): Aly Toney | | | Aguilar Fletcher [...] a wire | | | for a #4-Yemeni sheath. A Kumpe catheter and Vela catheter | | | were used to select the left subclavian artery and over wire, the | | | #4 Yemeni Vela catheter was advanced to the subclavian [...] proximal and distal control was obtained. A #2-Yemeni | | | Tysno catheter was used for thromboembolectomy of the [...] | | dictation. Roc Rae M.D. / [id number] / | | | [id number] / [id number] / | | + + + + + | Procedure Note | + + | Roc Rae MD - 11/08/2008 12:00 AM PDT [id number] | | [id number] [address] | | [id number] Date: 11/08/2008 Attending Surgeon: Roc | | Eve Rae. [employer] Senior Sergeant(s): Aly Fletcher M.D. | | Sam Niño [...] exchanged | | over a wire fora #4-Yemeni sheath. A Kumpe catheter and Vela catheter were used | | toselect the left subclavian artery and over wire, the #4 Yemeni Bernsteincatheter was | | advanced to the [...] | bifurcation was re-exposed. The patient was [id number] units of heparin. The | | arteriotomy of the brachial artery was openedafter proximal and distal control was | | obtained. A #2-Yemeni Fogartycatheter was used for thromboembolectomy of the [...] dictation. | | Roc Rae M.D.MALIKA / [id number] / [id number] / [id number] / T: 11/09/2008 | | | |upper arm was prepped and draped. The existing antecubital incision was | |opened and the brachial bifurcation was re-exposed. The patient was given | |5000 units of heparin. The arteriotomy of the brachial artery was opened | |after proximal and distal control was obtained. A #2-Yemeni Tyson | |catheter was used for thromboembolectomy [...] Rae M.D. | |EM / HS | |[id number] / [id number] / [id number] / | | | | | | | | | | | | | | | | | | | | | + + OPERATION RECORD (11/09/2008 12:00 AM PDT) + + + | Narrative | Performed At | + + + | [id number] | | | [id number] | | | [id number] ELEUTERIO | | | KELLY [id number] | | | Date: 11/08/2008 Attending | | | Surgeon: Scot Beltrán MD | | | Infantry Senior Sergeant(s): Preoperative Diagnosis(es): Dysvascular hand | | | [...] | | MD MARY Gregg / VONNIE [id number] / [id number] / [id number] / D: | | | 11/08/2008 | | + + + + + | Procedure Note | + + | Scot Beltrán MD - 11/08/2008 12:00 AM PDT [id number] | | [id number] ELEUTERIO TEAGUE | | [id number] Date: 11/08/2008 Attending Surgeon: Scot | | MD Jerel Infantry Senior Sergeant(s): Preoperative Diagnosis(es):Dysvascular hand status post | | [...] involved. Scot | | VANNESSA Beltrán / [id number] / [id number] / [id number] / T: 11/09/2008 | |The thenar and [...] Beltrán MD | |ZA / HS | |[id number] / [id number] / [id number] / | | | | | | [...] | + + + + + | [facility] | [address] | [place] [address] | | | PATHOLOGY | [address] | | | + + + + + | [facility] | [address] | [place] [address] | | | PATHOLOGY | [address] [...] + + + + | PRODUCT | [id number] | | [facility] | | | UNIT [...] | + + + + + | [facility] | [facility] [address] | [place] [address] | | | PATHOLOGY | [address] | | | + + + + + | [facility] DEPARTMENT OF | [facility] | [place] [address] | | | PATHOLOGY | [address] [...] + + + + | PRODUCT | [id number] | | [facility] | | | UNIT [...] | + + + + + | [facility] | [address] [facility] | [place] [address] | | | PATHOLOGY | [address] | | | + + + + + | [facility] | [facility] [facility] | [facility] [place] [address] | | | PATHOLOGY | [address] [...] + + + + | PRODUCT | [id number] | | [facility] | | | UNIT [...] | + + + + + | [facility] | [facility] [facility] | [place] [address] | | | PATHOLOGY | [address] | | | + + + + + | [facility] | [address] [place] [address] | [place] [address] | | | PATHOLOGY | [address] [...] + + + + | PRODUCT | [id number] | | [facility] | | | UNIT [...] + | [facility] DEPARTMENT OF | [address] [facility] [facility] [address] | [place] [address] | | | PATHOLOGY | [address] | | | + + + + + | [facility] DEPARTMENT OF | [address] [facility] | [place] [address] | | | PATHOLOGY | [address] [...] | + + + + + | [facility] | [address] | [place] [address] | | | PATHOLOGY | [address] | | | + + + + + | [facility] | [address] [place] [address] | [place] [address] | | | PATHOLOGY | [address] [...] | [address] | [place] [address] | | | PATHOLOGY | [address] | | | + + + + + | [facility] DEPARTMENT OF | [address] | [place] [address] | | | PATHOLOGY | [address] | | | + + + + + PHOSPHORUS, PLASMA (11/08/2008 3:40 AM PDT) + +-------+ + + + | Component | Value | Ref Range | Performed | Pathologist | | | | | At | Signature | + +-------+ + + + | PHOSPHORUS, | 4.0 | 2.4 - 4.7 mg/dL | [facility] | | | PLASMA | | | [...] | + + + + + | [facility] DEPARTMENT OF | [address] | [place] [address] | | | PATHOLOGY | [address] | | | + + + + + | [facility] DEPARTMENT OF | [address] | [place] [address] | | | PATHOLOGY | [address] [...] | + + + + + | [facility] | [address] [facility] | [place] [address] | | | PATHOLOGY | [address] | | | + + + + + | [facility] | [address] [facility] | [place] [address] | | | PATHOLOGY | [address] [...] | + + + + + | [facility] | [address] [facility] | [place] [address] | | | PATHOLOGY | [address] | | | + + + + + | [facility] | [address] [facility] | [place] [address] | | | PATHOLOGY | [address] [...] | + + + + + | [facility] DEPARTMENT OF | [address] | [place] [address] | | | PATHOLOGY | [address] | | | + + + + + | [facility] DEPARTMENT OF | [address] | [place] [address] | | | PATHOLOGY | [address] [...] + + + + | PRODUCT | [id number] | | [facility] | | | UNIT [...] | + + + + + | [facility] DEPARTMENT OF | [facility] | [place] [address] | | | PATHOLOGY | [address] | | | + + + + + | [facility] DEPARTMENT OF | [facility] | [place] [address] | | | PATHOLOGY | [address] [...] + + + + | PRODUCT | [id number] | | [facility] | | | UNIT [...] | + + + + + | [facility] DEPARTMENT OF | [address] | [place] [address] | | | PATHOLOGY | [address] | | | + + + + + | [facility] DEPARTMENT OF | [address] [facility] | [place] [address] | | | PATHOLOGY | [address] [...] | + + + + + | [facility] | [address] [facility] [address] [facility] | [place] [address] | | | PATHOLOGY | [address] | | | + + + + + | [facility] | [address] [facility] [address] | [place] [address] | | | PATHOLOGY | [address] [...] | + + + + + | [facility] | [address] | [place] [address] | | | PATHOLOGY | [address] | | | + + + + + | [facility] | [address] | [place] [address] | | | PATHOLOGY | [address] [...] irregular, | | | | | | quvr-zp-osjsxwdnkh, | | | | | | red-young [...] irregular, | | | | | | sqjh-dd-zfnmfqkkig, | | | | | | translucent, | | | | | | xlh-ni-filap | | | | | | redtissues. [...] | + + + + + | [facility] | [facility] [facility] | [place] [address] | | | PATHOLOGY | [address] | | | + + + + + | [facility] DEPARTMENT OF | [address] [facility] [address] | [place] [address] | | | PATHOLOGY | [address] [...] + + + + | PRODUCT | [id number] | | [facility] | | | UNIT [...] | + + + + + | [facility] | [address] [facility] [address] | [place] [address] | | | PATHOLOGY | [address] | | | + + + + + | [facility] | [facility] [facility] | [facility] [place] [address] | | | PATHOLOGY | [address] [...] + + + + | PRODUCT | [id number] | | [facility] | | | UNIT [...] | + + + + + | [facility] DEPARTMENT OF | [address] [facility] | [place] [address] | | | PATHOLOGY | [address] | | | + + + + + | [facility] DEPARTMENT OF | [address] [facility] | [place] [address] | | | PATHOLOGY | [address] [...] | | | | | ARTERY | [id number] Name | | | | | DUPLEX [...] # | | | | | | [id number]:UPPER | | | | | | EXTREMITY [...] systolic | | | | | | [id number] | | | | | | cm/sec. [...] + + + + | PRODUCT | [id number] | | [facility] | | | UNIT [...] | + + + + + | [facility] | [address] [facility] | [place] [address] | | | PATHOLOGY | [address] | | | + + + + + | [facility] | [address] [facility] [address] | [place] [address] | | | PATHOLOGY | [address] [...] + + + + | PRODUCT | [id number] | | [facility] | | | UNIT [...] DEPARTMENT OF | [address] | [place] [address] | | | PATHOLOGY | [address] | | | + + + + + | [facility] DEPARTMENT OF | [address] | [place] [address] | | | PATHOLOGY | [address] [...] DEPARTMENT OF | [address] | [place] [address] | | | PATHOLOGY | [address] | | | + + + + + | [facility] DEPARTMENT OF | [address] | [place] [address] | | | PATHOLOGY | [address] | | | + + + + + CREATININE, URINE (11/07/2008 6:30 PM PDT) + +--------+ + + + | Component | Value | Ref Range | Performed | Pathologist | | | | | At | Signature | + +--------+ + + + | CREATININE | 104.67 | mg/dL | [facility] | | | CONC UR | | [...] | + + + + + | [facility] | [address] [facility] | [place] [address] | | | PATHOLOGY | [address] | | | + + + + + | [facility] | [address] [facility] [address] | [place] [address] | | | PATHOLOGY | [address] [...] At | + + + | RLEarlene ([employer] [facility]) Keon | MELANIE | | [place] [address] [facility] | DEPARTMENT OF | | [place] [address] | PATHOLOGY | + + + + + + + + | Performing | Address | City/State/Zipcode | Phone Number | | Organization | | | | + + + + + | [facility] DEPARTMENT OF | [address] | [place] [address] | | | PATHOLOGY | [address] | | | + + + + + | [facility] DEPARTMENT OF | [address] | [place] [address] | | | PATHOLOGY | [address] | | | + + + + + HEMATOCRIT (11/07/2008 6:29 PM PDT) + + + + + + | Component | Value | Ref Range | Performed | Pathologist | | | | | At | Signature | + + + + + + | HEMATOCRIT | 26.6 (L) | 36.0 - 46.0 % | [facility] | | | | | | DEPARTMENT [...] | + + + + + | [facility] DEPARTMENT OF | [address] | [place] [address] | | | PATHOLOGY | [address] | | | + + + + + | [facility] DEPARTMENT OF | [address] [facility] | [place] [address] | | | PATHOLOGY | [address] [...] DEPARTMENT OF | [address] | [place] [address] | | | PATHOLOGY | [address] | | | + + + + + | [facility] DEPARTMENT OF | [address] | [place] [address] | | | PATHOLOGY | [address] [...] + + + + | PRODUCT | [id number] | | [facility] | | | UNIT [...] | + + + + + | [facility] DEPARTMENT OF | [facility] [facility] | [place] [address] | | | PATHOLOGY | [address] | | | + + + + + | [facility] DEPARTMENT OF | [facility] [facility] | [place] [address] | | | PATHOLOGY | [address] [...] | + + + + + | [facility] DEPARTMENT | [address] [facility] | [place] [address] | | | PATHOLOGY | [address] | | | + + + + + | [facility] | [address] [facility] | [place] [address] | | | PATHOLOGY | [address] [...] + + | [facility] DEPARTMENT OF | [address] | [place] [address] | | | PATHOLOGY | [address] | | | + + + + + | [facility] DEPARTMENT | [address] | [place] [address] | | | PATHOLOGY | [address] [...] See cmnt | 26.0 - 36.0 | [facility] | | | | | seconds | [...] | + + + + + | [facility] DEPARTMENT OF | [address] | [place] [address] | | | PATHOLOGY | [address] | | | + + + + + | [facility] DEPARTMENT OF | [address] | [place] [address] | | | PATHOLOGY | [address] [...] arteryPrimary | | | | | | maintenance supervisor mechanical: Varun | | | | | | Aguilar MurilloInfantry Senior Sergeant | | | | | | maintenance supervisor mechanical: Niels | | | | | | Aguilar MaradiagaAttending | | | | | | maintenance supervisor mechanical: Niels | | | | | | [...] a | | | | | | 4-Yemeni catheter | | | | | | [...] | | | | | | the 4-Yemeni | | | | | | catheterthat [...] | + + + + + | [facility] DEPARTMENT OF | [address] | [place] [address] | | | PATHOLOGY | [address] | | | + + + + + | [facility] DEPARTMENT OF | [address] | [place] [address] | | | PATHOLOGY | [address] [...] view image for the detailed interpretation from [employer] results. | CARDIOLOGY | | | | + + + + + + + + | Performing | Address | City/State/Zipcode | Phone Number | | Organization | | | | + + + + + | [facility] DEPT OF | [address] | [place], [place] | | | CARDIOLOGY | [address] | [address] | | + + + + + | [facility] DEPT OF | [address] | [place], [place] | | | CARDIOLOGY | [address] | [address] | | + + + + + [...] | | | | | PORTABLE | [id number] Name | | | | | VEIN | : KELLY MCCLELLAN | | | | | MAPPING | Birthday: | | | | | LOWER | 1955 Sex: | | | | | EXTREMITY | F Alias:Patient | | | | | BILATERAL | Location: [address] [place], [place] [address]us: | | | | | | Inpatient ActiveOrdering | | | | | | Physician: ROC Sears | | | | | | Aguilar RAEVVMLBP VL | | | | | | PORT VEIN MAPPING BILAT | | | | | | LE completed on 11/07/2008 | | | | | | 6:22 AMAccession # | | | | | | [id number]:LEG VEIN | | | | | | [...] | + + + + + | [facility] DEPARTMENT OF | [address] | [place] [address] | | | PATHOLOGY | [address] | | | + + + + + | [facility] DEPARTMENT OF | [address] | [place] [address] | | | PATHOLOGY | [address] [...] | + + + + + | [facility] DEPARTMENT OF | [address] | [place] [address] | | | PATHOLOGY | [address] | | | + + + + + | [facility] DEPARTMENT OF | [address] [facility] | [place] [address] | | | PATHOLOGY | [address] [...] | + + + + + | [facility] DEPARTMENT OF | [address] | [place] [address] | | | PATHOLOGY | [address] | | | + + + + + | [facility] DEPARTMENT OF | [address] | [place] [address] | | | PATHOLOGY | [address] [...] | + + + + + | [facility] DEPARTMENT OF | [address] | [place] [address] | | | PATHOLOGY | [address] | | | + + + + + | [facility] DEPARTMENT OF | [address] | [place] [address] | | | PATHOLOGY | [address] [...] DEPARTMENT OF | [address] | [place] [address] | | | PATHOLOGY | [address] | | | + + + + + | [facility] DEPARTMENT OF | [address] | [place] [address] | | | PATHOLOGY | [address] [...] | + + + + + | [facility] DEPARTMENT OF | [address] [facility] | [place] [address] | | | PATHOLOGY | [address] | | | + + + + + | [facility] DEPARTMENT OF | [address] [facility] | [place] [address] | | | PATHOLOGY | [address] [...] [facility] RESPIRATORY | [address] | [place], [place] | | | THERAPY | [address] | [address] | | + + + + + | [facility] RESPIRATORY | [address] | [place], [place] | | | THERAPY | [address] | [address] | | + + + + + [...] | | + +---------+ + + | [facility] DEPARTMENT OF | | | | | [...] 02:58:00; | | | | | | [place] FOREARM 2 VIEWS | | | | [...] | | | | | report.Author: ANALI Boldne | | | | | | Kamryn [...] | | + +---------+ + + | [facility] DEPARTMENT OF | | | | | [...] | | | | FOREARM 2 | [place] FOREARM 2 VIEWS | | | | [...] | | + +---------+ + + | [facility] DEPARTMENT OF | | | | | [...] | + + + + + | [facility] | [address] [facility] [address] | [place] [address] | | | PATHOLOGY | [address] | | | + + + + + | [facility] | [facility] [facility] | [place] [address] | | | PATHOLOGY | [address] [...] DEPARTMENT OF | [address] | [place] [address] | | | PATHOLOGY | [address] | | | + + + + + | [facility] DEPARTMENT | [address] | [place] [address] | | | PATHOLOGY | [address] | | | + + + + + SURGICAL PATHOLOGY (11/07/2008) + + + + + + | Component | Value | Ref Range | Performed | Pathologist | | | | | At | Signature | + + + + + + | SURGICAL | SOURCE OF SPECIMEN:A | | [facility] | | | PATHOLOGY | Thrombus, left [...] | + + + + + | [facility] DEPARTMENT OF | [address] | [place] [address] | | | PATHOLOGY | [address] | | | + + + + + | [facility] DEPARTMENT OF | [address] | [place] [address] | | | PATHOLOGY | [address] [...] | + + + + + | [facility] DEPARTMENT OF | [address] | [place] [address] | | | PATHOLOGY | [address] | | | + + + + + | [facility] DEPARTMENT OF | [address] | [place] [address] | | | PATHOLOGY | [address] [...] RLB (Airport | | | Way Lab) [facility] [address] | | | [place] [address] | | + + + + + + + + | Performing | Address | City/State/Zipcode | Phone Number | | Organization | | | | + + + + + | [facility] DEPARTMENT OF | [address] | [place] [address] | | | PATHOLOGY | [address] | | | + + + + + | [facility] DEPARTMENT OF | [address] | [place] [address] | | | PATHOLOGY | [address] [...] | + + + + + | [facility] | [address] [facility] | [place] [address] | | | PATHOLOGY | [address] | | | + + + + + | [facility] | [address] [facility] [address] | [place] [address] | | | PATHOLOGY | [address] [...] | + + + + + | [facility] DEPARTMENT OF | [address] | [place] [address] | | | PATHOLOGY | [address] | | | + + + + + | [facility] DEPARTMENT | [address] | [place] [address] | | | PATHOLOGY | [address] | | | + + + + + INR (11/06/2008 9:58 PM PDT) + + + + + + | Component | Value | Ref Range | Performed | Pathologist | | | | | At | Signature | + + + + + + | INR | 1.09Comment: | 0.90 - 1.20 INR | [facility] | | | | INR | | [...] | + + + + + | [facility] DEPARTMENT OF | [address] | [place] [address] | | | PATHOLOGY | [address] | | | + + + + + | [facility] DEPARTMENT OF | [address] | [place] [address] | | | PATHOLOGY | [address] [...] 3.59 (L) | 4.00 - 5.20 | [facility] | | | COUNT | | M/cu [...] | + + + + + | [facility] DEPARTMENT | [address] [place] [address] | [place] [address] | | | PATHOLOGY | [address] | | | + + + + + | [facility] DEPARTMENT OF | [facility] [facility] | [place] [address] | | | PATHOLOGY | [address] [...] DEPARTMENT OF | [address] | [place] [address] | | | PATHOLOGY | [address] | | | + + + + + | [facility] DEPARTMENT OF | [address] | [place] [address] | | | PATHOLOGY | [address] [...] + + + + | PRODUCT | [id number] | | [facility] | | | UNIT [...] | + + + + + | [facility] | [address] | [place] [address] | | | PATHOLOGY | [address] | | | + + + + + | [facility] | [address] [place] [address] [address] | [place] [address] | | | PATHOLOGY | [address] [...] + + + + | PRODUCT | [id number] | | [facility] | | | UNIT [...] DEPARTMENT OF | [address] | [place] [address] | | | PATHOLOGY | [address] | | | + + + + + | [facility] DEPARTMENT OF | [address] | [place] [address] | | | PATHOLOGY | [address] [...] | + + + + + | [facility] DEPARTMENT OF | [address] | [place] [address] | | | PATHOLOGY | [address] | | | + + + + + | [facility] DEPARTMENT OF | [address] | [place] [address] | | | PATHOLOGY | [address] | | | + + + + + OPERATION RECORD (11/06/2008 12:00 AM PDT) + + + | Narrative | Performed At | + + + | [id number] | | | [id number] | | | [id number] ELEUTERIO | | | [place] [id number] | | | Date: 11/07/2008 Attending | | | Surgeon: Misbah Quijano M.D. | | | Infantry Senior Sergeant(s): Sam Niño | | | Aguilar Preoperative [...] also | | | have an emergency BUN MACHINE OPERATOR consult for the ongoing significant vaginal | [...] MD Professor of | | | Surgery [facility] / [id number] / [id number] / [id number] / T: | | | 11/08/2008 | | + + + + + | Procedure Note | + + | Misbah Quijano MD - 11/07/2008 12:00 AM PDT [id number] | | [id number] ELEUTERIO TEAGUE | | [id number] Date: 11/07/2008 Attending Surgeon: Misbah | | Renu Quijano M.D. Infantry Senior Sergeant(s): Sam Niño M.D. Preoperative | | Diagnosis(es):Severely [...] | | will also have an emergency BUN MACHINE OPERATOR consult for the ongoingsignificant vaginal bleeding. | | The antecubital wound was then closed withinterrupted 3-0 Vicryl sutures and the skin | | closed with interrupted nylons.Sterile dressing was applied, and she was transferred to | | the recovery areain stable condition. She seemed to have tolerated this procedure well. | | MISBAH QUIJANO, [facility] / [id number] / [id number] / [id number] /D: | | 11/08/2008T: 11/08/2008 | |of [...] |extremity. She will also have an emergency BUN MACHINE OPERATOR consult for the ongoing | |significant vaginal [...] | | | |MISBAH QUIJANO MD | |barrel and receiver aligner | | | | | |GLM / | |[id number] / [id number] / [id number] / | | | | | | [...] necessary | | | | | | [facility] | | | | | | and [...] mottled | | | | | | cbc-diff-et-hemorrhagic | | | | | | red [...] | | | | | | dusky spnxib-pz-bqt | | | | | | discoloration [...] | + + + + + | [facility] | [facility] | [place] [address] | | | PATHOLOGY | [address] | | | + + + + + | [facility] DEPARTMENT OF | [facility] | [place] [address] | | | PATHOLOGY | [address] [...] + + +----+--------+---+ | HYDROmorphone 0.5 mg/mL DAYCARE ASSISTANT | Rate/Dos | 11/12/19 | mg | [...] 8:45 | | | | | dose, [facility] 11/08/08 at 2045 | | PM [...] | | | oral, ONCE, 1 dose, Counts Include [facility] 11/13/08 | | AM PDT | | [...] | | | oral, ONCE, 1 dose, [facility] 11/15/08 | | AM PDT | [...]
--- OUTSIDE RECORDS SUMMARY | ~2018-07-29 | XMS | Encounter Summary ---
Demographics + + + | Address | [address] | | | [place] [address] | + + + | Home Phone [...] Team Providers + +------+ + | [employer] Sheet Finishing Press Operator Name | Role | Phone | [...] | [facility] [phone] | WOOD FLOOR LAYER [address] | Encounter for | | | | [facility] [address] [facility] [address] | [address] | Long-Term (Current) | | | | Physicians [facility] | [place], [place] | Use of | | | | [address] | [address] | Anticoagulants | | | | Physicians [facility] | [phone] | | | | | [place], [place] | | | | | | [address] | | | | | | [phone] | | | +--------+---------+ + + + [...] provider is unavailable, call and ask the timber treatment plant operator for the Dramatic Art Teacher on-call. Rebecca Gonzales MS, WOOD FLOOR LAYER documented in this encounter Progress Notes Maria Eugenia Gonzales FNP - 12/10/2008 11:22 AM PDT Establised patient Kelly Mcbride was evaluated by myself today in the [facility]. HISTORY OF PRESENT ILLNESS (see doc flowsheet): [...] changes Reporting signs of bleeding Contacting [facility] staff ASSESSMENT AND PLAN: Anticoagulation Therapy: [...] provider is unavailable, call and ask the timber treatment plant operator for the Dramatic Art Teacher on-call. Rebecca Gonzales MS, WOOD FLOOR LAYER documented in this encounter Plan of Treatment [...] - KATHLEEN | [phone] | [place], [place] | | | [place] [facility] | [facility] | [address] | | | TESTS | | | | + + + + + | [facility] | 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
--- OUTSIDE RECORDS SUMMARY | ~2018-07-29 | XMS | Encounter Summary ---
Demographics + + + | Address | [address] | | | [place] [address] | + + + | Home Phone [...] Author + + + | Author | [facility] | + + + | Organization | [facility] | + + + | Address | Unknown | + + + | Phone | Unavailable | + + + Support + + +---------+ + | Name | Relationship | Address | Phone | + + +---------+ + | Isidra Wilson | ECON | Unknown | | + + +---------+ + Care Team Providers + +------+ + | Care Bean Sprout Laborer Name | Role | Phone | + [...] [id number] | | | | | | [place], [place] | | | | | | [address] | | | | | | [phone] | | | +--------+ + + + [...]
--- OUTSIDE RECORDS SUMMARY | ~2018-07-29 | XMS | Encounter Summary ---
Demographics + + + | Address | [address] | | | [place] [address] | + + + | Home Phone [...] Author + + + | Author | [facility] | + + + | Organization | [facility] | + + + | Address | Unknown | + + + | Phone | Unavailable | + + + Support + + +---------+ + | Name | Relationship | Address | Phone | + + +---------+ + | Isidra Wilson | ECON | Unknown | | + + +---------+ + Care Team Providers + +------+ + | Care Personal Assistant Name | Role | Phone | [...] | | | | | finger(s) | [place], [place] | [facility] | | | | | (complete) | [address] | for Health | | | | | (partial), | Phone: | and Healing, | | | | | complicated | [phone] | 1st Floor | | | | | Procedures | Fax: | [place], [place] | | | | | OCC HAND | [phone] | [address] | | | | | THERAPY | | Phone: | | | | | REFERRAL IN | | [phone] | | | | | PPV | | Fax: | | | | | [facility] A 4 | | [phone] | | | | | visits | [...] Finger-Complicated | | | | Services at [facility] | [address] | (Primary Dx) | | | | [place] [address] | [place] [address] | | | | | [address] Mailcode: | [phone] | | | | | [facility] Center for | | | | | | Health and Healing, | | | | | | 1st Floor [place], | | | | | | [place] [address] | | | | | | [phone] | | | +--------+---------+ + + + [...] Wan OT - 12/13/2008 11:19 AM PDT [id number] ZAHIDA MCBRIDE Date of : 1955 Start of care: 12/13/2008 Date of onset: 11/26/2008 (most recent surgery) Referring/Attending Practitioner: Yazmin Queen Primary/Referral Diagnosis/ICD-9: Encounter Diagnoses Code Name Primary? 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 Service period from: 12/13/2008 to: 01/12/2009 Number visits used/authorized: 1 used -- applying for financial assistance [facility] OCCUPATIONAL THERAPY INITIAL EVALUATION HAND INITIAL EVALUATION Name: Zahida Mcbride MR# [id number] SUBJECTIVE: History of Presenting Problem: Zahida Mcbride [...] program and given name of therapist in [place], which is closer to her home. Pt encouraged to f/u with therapist in [facility] next week a nd f/u with this [...] Primary? 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 ANDREW WAN OTR/L, CHT [facility]ABIL[facility] AND HAND THERAPY [address] [facility], 3rd [place] [address] documented in this encounter Plan of Treatment + + +--------+ + + | Name | Type | Priori | Associated Diagnoses | Order Schedule | | | | ty | | | + + +--------+ + + | [place] OCCUPATIONAL | Procedures | Routin | Amputation [...]
--- OUTSIDE RECORDS SUMMARY | ~2018-07-29 | XMS | Encounter Summary ---
Demographics + + + | Address | [address] | | | [place] [address] | + + + | Home Phone | | + + + | Preferred Language | Unknown | + + + | Marital Status | Single | + + + | Presybeterian Affiliation | PRO | + + + [...] Providers + +------+ + | Care Fur Glosser Name | Role | Phone | + [...] [address] | | | | | DIETETIC TECH | [place] | Michael [address]oley | | | | | [place] | [address] | Pavilion | | | | | MYOMECTOMY | Phone: | [facility] [place] | | | | | 1-4,W/TOT | [phone] | [address] | | | | | 250GMS/<,ABD | | Phone: | | | | | APPRCH | | [phone] | | | | | | | Fax: | | | | | | | [phone] | +--------+--------+ + + + + Encounter Details +--------+ + + + + | Date | Type | Department | Care Team | Description | +--------+ + + + + | 11/20/ | Clinical Recruiter | [facility] | Margie Cates, | Fibroid (Primary Dx) | | 2008 | | [facility] | [address] | | | | | [place] [address] | [address] | | | | | [address] | [place] [address] | | | | | Road [place] [address] | [phone] | | | | | [place], | | | | | | [place] [address] | | | | | | [phone] | | | +--------+ + + + [...]
--- OUTSIDE RECORDS SUMMARY | ~2018-07-29 | XMS | Encounter Summary ---
Demographics + + + | Address | [address] | | | [place] [address] | + + + | Home Phone [...] Team Providers + +------+ + | Care Rate And Cost Analyst Name | Role | Phone | [...] | | 2009 | | [facility] | MD Chuyita | appt. ) | | | | [place] [address] | | | | | | [address] | | | | | | Roxanna Cooley | | | | | | [place], | | | | | | [place] [address] | | | | | | [phone] | | | +--------+ + + + [...]
--- OUTSIDE RECORDS SUMMARY | ~2018-07-29 | XMS | Encounter Summary ---
Demographics + + + | Address | [address] | | | [place] [address] | + + + | Home Phone | | + + + | Preferred Language | Unknown | + + + | Marital Status | | + + + | Voodoo Affiliation | Unknown | + + + | Race | Unknown | + + + | Ethnic Group | Unknown | + + + Author + + + | Author | [facility] | | | and [place] | + + + | Organization | [facility] | | | and [place] | + + + | Address | Unknown | + + + | Phone | Unavailable | + + + Support + + + + + | Name | Relationship | Address | Phone | + + + + + | Jovani Wilson | ECON | [place] [address] | | + + + + + | Isidra Delgado | ECON | Unknown | | + + + + + Care Team Providers + +------+ + | Care Tab Cutting Machine Operator Name | Role | Phone | [...] [place] | | | | | [address] | [place] [address] | | | | | [place] [address] | [phone] | | | | | [phone] | | | +--------+ + + + [...]
--- OUTSIDE RECORDS SUMMARY | ~2018-07-29 | XMS | Encounter Summary ---
Demographics + + + | Address | [address] | | | [place] [address] | + + + | Home Phone [...] Team Providers + +------+ + | Care Steamship Agent Name | Role | Phone | + [...] | | | | Avascular | Dept [facility] | MD Jhon | | | | | necrosis | [address] | [address] [facility] [address] | | | | | ([facility]) | [address] | [address] | | | | | Aseptic | [address] [facility] | [address] [place], | | | | | necrosis of | HOSPITAL | [place] | | | | | other bone | [place] | [address] | | | | | site | [address] | Phone: | | | | | Procedures | Phone: | [phone] | | | | | REQUEST TO | [phone] | Fax: | | | | | SURGERY | | [phone] | | | | | CARTON FORMING MACHINE OPERATOR | | | | | | | [...] + + + + | 11/15/ | Ad Compositor | Orthopaedics at | Jhon Cabello MD | 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
--- OUTSIDE RECORDS SUMMARY | ~2018-07-29 | XMS | Encounter Summary ---
Demographics + + + | Address | [address] | | | [place] [address] | + + + | Home Phone | | + + + | Preferred Language | Unknown | + + + | Marital Status | | + + + | Spiritism Affiliation | Unknown | + + + | Race | Unknown | + + + | Ethnic Group | Unknown | + + + Author + + + | Author | [facility] | + + + | Organization | [facility] | + + + | Address | Unknown | + + + | Phone | Unavailable | + + + Support + + +---------+ + | Name | Relationship | Address | Phone | + + +---------+ + | Isidra Delgado | ECON | Unknown | | + + +---------+ + Care Team Providers + +------+ + | Care Foundry Worker Apprentice Name | Role | Phone | + +------+ + | Kj Austin MD | PCP | | + +------+ + Encounter Details +--------+ + + + + | Date | Type | Department | Care Team | Description | +--------+ + + + + | 07/26/ | Documentati | [facility] | Minh Horne DO | | | 2019 | on Only | [facility] | [address] | | | | | [address] | [place], [place] | | | | | [place], [place] | [address] | | | | | [address] | | | | | | [phone] | | | +--------+ + + + [...] [place] | | | | | | [address] | | | | | | | | +--------+---------+ + + + as of this encounter Visit Diagnoses Not on filein this encounter"
--- OUTSIDE RECORDS SUMMARY | ~2018-07-29 | XMS | Encounter Summary ---
Demographics + + + | Address | [address] | | | [place] [address] | + + + | Home Phone | | + + + | Preferred Language | Unknown | + + + | Marital Status | Single | + + + | Gnosticist Affiliation | PRO | + + + | Race | White | + + + | Ethnic Group | Not or | + + + Author + + + | Author | [facility] | + + + | Organization | [facility] | + + + | Address | Unknown | + + + | Phone | Unavailable | + + + Support + + +---------+ + | Name | Relationship | Address | Phone | + + +---------+ + | Isidra Wilson | ECON | Unknown | | + + +---------+ + Care Team Providers + +------+ + | Care Experimental Machining Lab Manager Name | Role | Phone | [...] | | | | | Roxanna Rodriguez [place] | | | | | | [place], | | | | | | [place] [address] | | | | | | [phone] | | | +--------+ + + + [...]
--- OUTSIDE RECORDS SUMMARY | ~2018-07-29 | XMS | Encounter Summary ---
Demographics + + + | Address | [address] | | | [place] [address] | + + + | Home Phone | | + + + | Preferred Language | Unknown | + + + | Marital Status | Single | + + + | Alevism Affiliation | PRO | + + + | Race | White | + + + | Ethnic Group | Not or | + + + Author + + + | Author | [facility] | + + + | Organization | [facility] | + + + | Address | Unknown | + + + | Phone | Unavailable | + + + Support + + +---------+ + | Name | Relationship | Address | Phone | + + +---------+ + | Isidra Wilson | ECON | Unknown | | + + +---------+ + Care Team Providers + +------+ + | Care Hotel Receptionist Name | Role | Phone | [...] | | 2008 | Visit | at [facility] 2nd Floor | | Finger-Complicated | | | | [address] | | (Primary Dx); | | | | [address] | | Embolism (HCC) | | | | Mailcode: OP11 | | | | | | Physicians [place] | | | | | | [place], [place] | | | | | | [address] | | | | | | [phone] | | | +--------+---------+ + + + [...]
--- OUTSIDE RECORDS SUMMARY | ~2018-07-29 | XMS | Encounter Summary ---
Demographics + + + | Address | [address] | | | [place] [address] | + + + | Home Phone [...] Team Providers + +------+ + | Care Tearer Press Clipping Name | Role | Phone | + [...] | | | | | Roxanna [address] [place] | | | | | | [place], | | | | | | [place] [address] | | | | | | [phone] | | | +--------+ + + + [...]
--- OUTSIDE RECORDS SUMMARY | ~2018-07-29 | XMS | Encounter Summary ---
Demographics + + + | Address | [address] | | | [place] [address] | + + + | Home Phone | | + + + | Preferred Language | Unknown | + + + | Marital Status | Single | + + + | Advent Affiliation | PRO | + + + | Race | White | + + + | Ethnic Group | Not or | + + + Author + + + | Author | [facility] | + + + | Organization | [facility] | + + + | Address | Unknown | + + + | Phone | Unavailable | + + + Support + + +---------+ + | Name | Relationship | Address | Phone | + + +---------+ + | Isidra Wilson | ECON | Unknown | | + + +---------+ + Care Team Providers + +------+ + | Care Box Finisher Name | Role | Phone | + [...] & | Diagnoses | Sudha, | Cwh Instrument Technologist Onc | | | | Gynecology | Uterine | Lauren Boogie, | [address] | | | | | corpus | [address] | | | | | cancer (HCC) | [address] | [facility] | | | | | Procedures | [facility] | [address] | | | | | REQUEST TO | [place], [place] | Pavilion | | | | | SURGERY | [address] | [place], [place] | | | | | RELIGIOUS RITUAL SLAUGHTERER | | [address] | | | | | MD VAG | | Phone: | | | | | HYST,UTERUS | | [phone] | | | | | >250 [address],REM | | Fax: | | | | | TUBE/OVARY | | [phone] | + +--------+ + + + + Encounter Details +--------+ + + + + | Date | Type | Department | Care Team | Description | +--------+ + + + + | 07/19/ | Condenser Tester | [facility] | Lauren Haley | 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
--- OUTSIDE RECORDS SUMMARY | ~2018-07-29 | XMS | Encounter Summary ---
Demographics + + + | Address | [address] | | | [place] [address] | + + + | Home Phone [...] Team Providers + +------+ + | Care Route Delivery Service Driver Name | Role | Phone | [...] | | | | | Roxanna [place] | | | | | | [place], | | | | | | [place] [address] | | | | | | [phone] | | | +--------+ + + + [...]
--- OUTSIDE RECORDS SUMMARY | ~2018-07-29 | XMS | Encounter Summary ---
Demographics + + + | Address | [address] | | | [place] [address] | + + + | Home Phone [...] Team Providers + +------+ + | Care Foster Parent Name | Role | Phone | + [...] | | 2009 | | [facility] | MD Chuyita | cancellation per | | | | Pavilion [address] | | pt.) | | | | [address] | | | | | | Road Michael [address] | | | | | | Pav[place], | | | | | | [place] [address] | | | | | | [phone] | | | +--------+ + + + [...]
--- OUTSIDE RECORDS SUMMARY | ~2018-07-29 | XMS | Encounter Summary ---
Demographics + + + | Address | [address] | | | [place] [address] | + + + | Home Phone [...] Team Providers + +------+ + | Care College Administrator Name | Role | Phone | [...] | Obstetrics & | Diagnoses | [facility] Craft Center Director | Sudha, | | | | Gynecology | vaginal | Onc Kpv | Lauren Boogie, | | | | | myomectomy | [address] | MD [address] | | | | | (removal of | [address] | [address] | | | | | a uterine | [address] | [facility] | | | | | mass) for | Michael [address]oley | [place], [place] | | | | | which the | Pavilion | [address] | | | | | pathology | [place], [place] | | | | | | revealed a | [address] | | | | | | Smooth | Phone: | | | | | | Muscle Tumor | [phone] | | | | | | of | Fax: | | | | | | Uncertain | [phone] | | | | | | Malignant [...] | 2009 | Visit | [facility] | MD Chuyita | Dx) | | | | [place] [address] | | | | | | [address] | | | | | | Road Michael [address] | | | | | | [place], | | | | | | [place] [address] | | | | | | [phone] | | | +--------+---------+ + + + [...] might be different fro m the original. 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 Ms. Mcbride initially presented to [facility] as a transfer in 11/18 [...] embolectomy 10/2008 Hx myomectomy 10/2008 prolapsed myoma SITE OPERATIONS MANAGER HISTORY: s/p vaginal myomectomy for prolapsed fibroid Age at menarche: 7 Menstrual cycles described as: every 2-4 weeks, no intermenstrual bleeding, heavy for 2 day s Hx of infertility: no Age at Menopause: NA Hx of HRT: NA Forms of contraception used: BTL Hx of STD's: no Hx of operations manager assistant surgery: vaginal myomectomy, section, tubal ligation # [...] the consent form today. LAUREN HALEY MD [facility] [address] [place] [address] documented in this en counter Plan of Treatment Not on filedocumented as of this encounter Procedures + +--------+ + + + | Procedure Name | Priori | Date/Time | Associated Diagnosis | Comments | | | ty | | | | + +--------+ + + + | COLLATERAL CLERK CYTOLOGY (PAP) | Routin | 07/05/2009 | Screening | Results for this | | | e | | | procedure are in the | | | | | | results section. | + +--------+ + + + documented in this encounter Results COLLATERAL CLERK CYTOLOGY (PAP) (07/05/2009) + + + + + + | Component | Value | Ref Range | Performed | Pathologist | | | | | At | Signature | + + + + + + | COLLATERAL CLERK | THIS IS AN HPV | | [...] | | | | | | Diagnostician: aBlbina | | | | | | Sharla | | | | | | CT(ASCP)Field Crop Farming Supervisor | | | | | | Electronically [...] | + + + + + | [facility] | [address] | [place] [address] | | | PATHOLOGY | [address] | | | + + + + + documented in this encounter Visit Diagnoses + + | Diagnosis | + + | Screening - Primary Screening for unspecified condition | + + documented in this encounter
--- OUTSIDE RECORDS SUMMARY | ~2018-07-29 | XMS | Encounter Summary ---
Demographics + + + | Address | [address] | | | [place] [address] | + + + | Home Phone | | + + + | Preferred Language | Unknown | + + + | Marital Status | Single | + + + | Jehovah'S Witness Affiliation | PRO | + + + | Race | White | + + + | Ethnic Group | Not or | + + + Author + + + | Author | [facility] | + + + | Organization | [facility] | + + + | Address | Unknown | + + + | Phone | Unavailable | + + + Support + + +---------+ + | Name | Relationship | Address | Phone | + + +---------+ + | Isidra Wilson | ECON | Unknown | | + + +---------+ + Care Team Providers + +------+ + | Care Mock Up Assembler Name | Role | Phone | + [...] | | | | | | [place], | | | | | | [place] [address] | | | | | | [phone] | | | +--------+ + + + [...]
--- OUTSIDE RECORDS SUMMARY | ~2018-07-29 | XMS | Clinical Summary ---
Demographics + + + | Address | [address] | | | [place] [address] | + + + | Home Phone | | + + + | Preferred Language | Unknown | + + + | Marital Status | | + + + | Samaritan Affiliation | Unknown | + + + | Race | Unknown | + + + | Ethnic Group | Unknown | + + + Author + + + | Author | [facility] | + + + | Organization | [facility] | + + + | Address | Unknown | + + + | Phone | Unavailable | + + + Support + + +---------+ + | Name | Relationship | Address | Phone | + + +---------+ + | Isidra Delgado | ECON | Unknown | | + + +---------+ + Care Team Providers + +------+ + | Care Newspaper Delivery Driver Name | Role | Phone | [...] on Only | | | update from [place] | | | | | | [facility] | | | | | | [facility] | | | | | | [facility] 07/06/18) | +--------+ + + + + [...] [place] | | | | | | [address] | | | | | | | [...] +------+-------+ + | MEDICAID | [place] | [id number] | | | [address] | | | [place] | | | | [place] | | | [place] | | | | [address] | | | REGISTRY NP | | | | | + +--------+ [...] | Self [birth year] Home: | [address] | | K | al/Fam | | 4 | [phone] [place] | | | hailey | | | [address] | [address] | + +--------+ +--------+ + +
--- OUTSIDE RECORDS SUMMARY | ~2018-07-29 | XMS | Encounter Summary ---
Demographics + + + | Address | [address] | | | [place] [address] | + + + | Home Phone | | + + + | Preferred Language | Unknown | + + + | Marital Status | Single | + + + | Latter Day Affiliation | PRO | + + + [...] Team Providers + +------+ + | Care Facilities Maintenance Worker Name | Role | Phone | + [...] [address] | | | | | | [facility] | | | | | | Road Outpatient | | | | | | Clinic Building 2 | | | | | | Mailcode: [address] | | | | | | [place], [place] | | | | | | [address] | | | | | | [phone] | | | +--------+ + + + [...]
--- OUTSIDE RECORDS SUMMARY | ~2018-07-29 | XMS | Encounter Summary ---
Demographics + + + | Address | [address] | | | [place] [address] | + + + | Home Phone [...] Team Providers + +------+ + | Care Tool Designer Apprentice Name | Role | Phone | [...] | | 2009 | | [facility] | MD Chuyita | | | | | [place] [address] | | | | | | [address] | | | | | | Road Michael Co[address] | | | | | | [place], | | | | | | [place] [address] | | | | | | [phone] | | | +--------+ + + + [...]
--- OUTSIDE RECORDS SUMMARY | ~2018-07-29 | XMS | Encounter Summary ---
Demographics + + + | Address | [address] | | | [place] [address] | + + + | Home Phone | | + + + | Preferred Language | Unknown | + + + | Marital Status | Single | + + + | Confucianist Affiliation | PRO | + + + | Race | White | + + + | Ethnic Group | Not or | + + + Author + + + | Author | [facility] | + + + | Organization | [facility] | + + + | Address | Unknown | + + + | Phone | Unavailable | + + + Support + + +---------+ + | Name | Relationship | Address | Phone | + + +---------+ + | Isidra Wilson | ECON | Unknown | | + + +---------+ + Care Team Providers + +------+ + | Care Door Hanger Name | Role | Phone | + [...] Prescription ( | | 2009 | | [facility] | MD Chuyita | Sudha) | | | | [place] [address] | | | | | | [address] | | | | | | Roxanna Cooley | | | | | | [place], | | | | | | [place] [address] | | | | | | [phone] | | | +--------+ + + + [...]
--- OUTSIDE RECORDS SUMMARY | ~2018-07-29 | XMS | Encounter Summary ---
Demographics + + + | Address | [address] | | | [place] [address] | + + + | Home Phone [...] Team Providers + +------+ + | Care Whizzer Name | Role | Phone | + [...] | | | | | | [place], | | | | | | [place] [address] | | | | | | [phone] | | | +--------+ + + + [...]
--- OUTSIDE RECORDS SUMMARY | ~2018-07-29 | XMS | Encounter Summary ---
Demographics + + + | Address | [address] | | | [place] [address] | + + + | Home Phone [...] Team Providers + +------+ + | Care Wire Setter Name | Role | Phone | [...] | | | | | | [place], | | | | | | [place] [address] | | | | | | [phone] | | | +--------+ + + + [...]
--- OUTSIDE RECORDS SUMMARY | ~2018-07-29 | XMS | Encounter Summary ---
Demographics + + + | Address | [address] | | | [place] [address] | + + + | Home Phone | | + + + | Preferred Language | Unknown | + + + | Marital Status | Single | + + + | Methodist Affiliation | PRO | + + + | Race | White | + + + | Ethnic Group | Not or | + + + Author + + + | Author | [facility] | + + + | Organization | [facility] | + + + | Address | Unknown | + + + | Phone | Unavailable | + + + Support + + +---------+ + | Name | Relationship | Address | Phone | + + +---------+ + | Isidra Wilson | ECON | Unknown | | + + +---------+ + Care Team Providers + +------+ + | Care Case Investigator Name | Role | Phone | + [...] | | 2009 | | [facility] | MD Chuyita | appt. ) | | | | [place] [address] | | | | | | [place] | | | | | | Roxanna Cooley | | | | | | [place], | | | | | | [place] [address] | | | | | | [phone] | | | +--------+ + + + [...]
--- OUTSIDE RECORDS SUMMARY | ~2018-07-29 | XMS | Encounter Summary ---
Demographics + + + | Address | [address] | | | [place] [address] | + + + | Home Phone [...] Team Providers + +------+ + | Care Clinical Manager Home Care Name | Role | Phone | [...] (medication) | | 2009 | | at [facility] 2nd Floor | [address] | | | | | [address] | [facility] | | | | | [facility] | [place], [place] | | | | | Mailcode: MACK | [address] | | | | | Physicians [place] | [phone] | | | | | [place], [place] | | | | | | [address] | | | | | | [phone] | | | +--------+ + + + [...]
[~2018-07-29 19:33] MED LIST: LANTUS100 UNITS/ SUB-Q; LIPITOR20 MG PO; METFORMIN HCL1000 MG PO; NIFEDIPINE ER30 M1 PO
--- NOTE | 2018-07-30 00:37 | NUR ---
PT ARRIVED TO THE FLOOR VIA STRETCHER, PT AOX4, APPROPRIATE, PT ABLE TO MOVE SELF FROM STRETCHER TO BED. PT ORIENTED TO ROOM. IV FLUIDS/INSULIN DRIP INFUSING PER EMAR WNL, PT'S VSS, ON RA, O2 SAT > 95, PT'S CBG 328, INSULIN DRIP TITRATED FROM 5 TO 7.5 UNIT/HR PER SHEET, 2 RN VERIFICATION COMPLETE, PT RESTING IN BED, DENIES ANY PAIN, DENIES ANY NEEDS AT THIS TIME, ASSESSMENT COMPLETE, PT HAS 2+ PITTING EDEMA TO BLE, PT STATES CMS INTACT. LS CLEAR, HEART SOUNDS REGULAR, BT ACTIVE, ABD SOFT. NO C/O NAUSEA. CALL LIGHT WITHIN REACH.
--- NOTE | 2018-07-30 00:40 | NUR ---
DR. BILLINGSLEY CALLED UNIT AND ORDERED FOR A BARRIENTOS CATHETER TO BE PLACED IF THE PT IS UNABLE TO VOID INDEPENDENTLY.
--- NOTE | 2018-07-30 01:30 | NUR ---
PT UP TO BSC, PT WAS ABLE TO VOID 175 MLS OF CLEAR YELLOW URINE, PT BACK TO BED, IV FLUIDS INFUSING PER EMAR WNL, NO REQUESTS AT THIS TIME. CALL LIGHT WITHIN REACH.
--- NOTE | 2018-07-30 02:05 | NUR ---
PT'S CBG 314, INSULIN DRIP TITRATED UP TO 10 UNIT/HR PER INSULIN SCALE PER EMAR. PT DENIES ANY NEEDS AT THIS TIME, CALL LIGHT WITHIN REACH.
--- NOTE | 2018-07-30 03:09 | NUR ---
PT'S CBG 278, INSULIN DRIP TITRATED TO 8.4, PT AOX4, WARM BLANKET PROVIDED, NO FURTHER NEEDS AT THIS TIME, CALL LIGHT WITHIN REACH.
--- NOTE | 2018-07-30 03:10 | NUR ---
CBG 278, INSULIN GTT TITRATED TO 8.4 UNITS/HR.
--- NOTE | 2018-07-30 04:10 | NUR ---
PT'S CBG 257, INSULIN DRIP TITRATED TO 10.5 PER SCALE, PER EMAR, 2 RN VERIFICATION, PT RESTING IN BED. CALL LIGHT WITHIN REACH.
--- NOTE | 2018-07-30 04:14 | NUR ---
LAB TO THE UNIT, STATING THAT THE MD HAD CALLED AND ASKED THE LAB TO DRAW THE PT'S LABS AT 0400 INCLUDING THE 0600 MORNING LABS,
--- NOTE | 2018-07-30 05:18 | NUR ---
CBG 223 INSULIN TITRATED TO 8.5 UNIT/HR. CALL LIGHT WITHIN REACH.
--- NOTE | 2018-07-30 06:00 | NUR ---
CBG 169, INSULIN GTT TITRATED TO 6 UNIT/HR PER SCALE. PT RESTING IN BED WATCHING TV, NO REQUESTS AT THIS TIME. CALL LIGHT WITHIN REACH.
--- NOTE | 2018-07-30 07:00 | NUR ---
CBG 146, INSULIN TITRATED TO 3.6, PT RESTING IN BED, WAS NOTED TO BE INCONTINENT OF STOOL, SMALL LOOSE BM NOTED, ATTENDS CHANGED, CHUX PLACED ON BED, NO FURTHER NEEDS AT THIS TIME, CALL LIGHT WITHIN REACH.
--- NOTE | 2018-07-30 08:00 | NUR ---
PATIENT LYING IN BED AT THIS TIME IN HIGH FOWLERS, WATCHING TV. PATIENT CBG AT 0800 129 AND INSULIN GTT ADJUSTED ACCORDING TO INSULIN GTT POLICY. PATIENT ALERT, ORIENTED, AND PLEASANT THIS AM. PATIENT HAD CHEMO YESTERDAY, WHICH WAS HER 7TH TREATMENT. PATIENT ASSESSMENT COMPLETE. BILATERAL FINE CRACKLES AUSCULTATED IN BILATERAL LOWER LUNG BASES. PITTING EDEMA REMAINS PRESENT IN BILATERAL LOWER LEGS, DOWN TO ANKLES AND FEET, 2+. PATIENT STATES SHE IS FEELING BETTER TODAY VS YESTERDAY, AND ASKS, "IS IT OKAY IF I STAY ANOTHER NIGHT? BECAUSE I HAVE AN APPOINTMENT WEDNESDAY MORNING." PATIENT EDUCATED ON PLAN OF CARE FOR HER WHILE IN HOSPITAL. PT DENIES SHORTNESS OF BREATH. IVF CONTINUE AT 125 ML/HR.
[2018-07-30] MEDS ORDERED: LORAZEPAM1 MG PO (08:52)
[2018-07-30] MEDS ORDERED: ONDANSETRON ODT8 MG PO (08:52)
[2018-07-30] MEDS ORDERED: VELCADE3.5 MG IV (08:52)
[2018-07-30] MEDS ORDERED: XGEVA120 MG/1.7 SUB-Q (08:52)
[2018-07-30] MEDS ORDERED: CYCLOPHOSPHAMI500 MG IV (08:52)
--- NOTE | 2018-07-30 09:15 | NUR ---
NEW IV PLACED IN LEFT FOREARM. PATIENT TO RECEIVE BLOOD TODAY. DR. BILLINGSLEY IN TO SEE PATIENT. PATIENT ALSO WILL BE PLACED IN CHEMO PRECAUTIONS UNTIL 72 HOURS POST CHEMO TREATMENT.
--- NOTE | 2018-07-30 09:48 | NUR ---
PT CONTIOUES TO EAT BKF AT THIS TIME, PT CONCERNED WITH HER CARE REGARDING HER BLOOD SUGAR. "IT IS GOING TO BE HIGH WITH WHAT I AM EATING" EXPLAINED TO PT THAT WE HAVE HER ON A INSULIN DRIP AND SHE IS COVERED. PT CONTIOUES TO EAT BKF.
--- NOTE | 2018-07-30 11:04 | NUR ---
PT UP TO THE BEDSIDE COMMODE, UNABLE TO VIOD ATT HIS TIME, BUT PT WAS ABLE TO PASS GAS. UNIT 1 OF 1 STARTED AT THIS TIME.
--- NOTE | 2018-07-30 11:31 | NUR ---
UNIT 1 OF 1 INFUSING WELL AT THIS TIME IN LEFT AC 20G SITE. PT IS SITTING UP IN BED WATCHING TV. PT DENIES PAIN AT THIS TIME. CONTIOUES ON INSULIN DRIP.
--- NOTE | 2018-07-30 12:07 | NUR ---
PT CONTIOUES TO STATES "NO I DO NOT NEED TO PEE" BLADDER SCANED AT THIS TIME AND HAS 303ML NOTED. DR BILLINGSLEY NOTIFIED
--- NOTE | 2018-07-30 12:12 | NUR ---
PT CONTIOUES TO BE ON Q 1 HOURS CBG'S WITH INSULIN DRIP INFUSING. PT IS ASLEEP AND AWAKES WHEN SPOKEN TOO. "I DID NOT GET MUCH SLEEP" WILL SAVE LUNCH FOR PT AND SHE CAN EAT LATER.
--- NOTE | 2018-07-30 12:34 | NUR ---
PT STARTED ON LANTUS AT THIS TIME AND THEN INSULIN DRIP AND CURRENT IV FLUIDS WILL BE TURNED OFF. PT IS AWAKE SITTING UP EATTING LUNCH AT THIS TIME.
--- NOTE | 2018-07-30 13:17 | NUR ---
INSULINE DRIP OFF AT THIS TIME, 1 UNIT OF PRBCS COMPLETED ALSO AT THIS TIME.
--- NOTE | 2018-07-30 13:29 | NUR ---
PT UP TO BS COMMODE VOIDED 100MLS AND HAD SMALL SOFT BM AT THIS TIME. PT BACK TO BED, SIDE RAILS X2 CALL LIGHT WITHIN REACH AND PT IS FINISHING UP HER LUNCH AT THIS TIME.
--- NOTE | 2018-07-30 14:44 | NUR ---
PT REMAINS SITTING UP IN BED WATCHING TV. HAS NO C/O'S AT THIS TIME.
--- NOTE | 2018-07-30 15:15 | NUR ---
Medications reocnciled using pharmacy records and patient interview. Patient receives chemotherapy regimen which includes bortezomib, cyclophosphamide and denosumab. 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
--- NOTE | 2018-07-30 15:15 | NUR ---
PT BLADDER SCANED FOR 137MLS AT THIS TIME. PT CONTIOUES TO WATCH TV AND NO REQUEST AT THIS TIME.
--- NOTE | 2018-07-30 16:47 | NUR ---
PT UP TO THE BEDSIDE COMMODED VOIDED 225MLS OF URINE AND BACK TO BED. CBG CHECKED ALSO AT THIS TIME AND WILL RECHECH CBG AT 1700 WITH HER MEAL ORDER FOR DINNER.
--- NOTE | 2018-07-30 17:34 | NUR ---
REPORT CALL TO JAMARCUS PAGAN ON M/S ALL QUESTIONS ANSWERED AND ALL PERSONAL BELONGINGS SENT WITH PT TO ROOM 115. PT WAS TRANSFERED VIA BED AND DID WELL WITH THIS PROCESS. ALL QUESTIONS ANSWERED AT THIS TIME,
--- NOTE | 2018-07-30 17:37 | NUR ---
PT TO ROOM 115 AT THIS TIME, ALERT AND ORIENTED. REQUESTED WARM PACK THIS HAS BEEN GIVEN.
--- NOTE | 2018-07-30 18:06 | NUR ---
PT SITTING UP IN BED EATING DINNER. NO COMPLAINTS OR REQUESTS. NO DISTRESS NOTED
--- NOTE | 2018-07-30 19:15 | NUR ---
SHIFT REPORT RECEIVED. PATIENT RESTING IN BED. DENIES ANY NEEDS OR CONCERNS AT THIS TIME. CALL LIGHT IN REACH.
--- NOTE | 2018-07-30 20:22 | NUR ---
PER LATASHA MONCADA I TOOK A BEDSIDE COMMODE INTO HER ROOM FOR HER TO USE. I GOT IN TO THE ROOM PT HAD STATED SHE ALREADY WENT INTO THE BATHROOM AND THE HAT NEEDED TO BE EMPTY. I INFORMED LATASHA MONCADA THAT SHE HAD WENT BY HERSELF INTO THE BATHROOM.
--- NOTE | 2018-07-30 21:15 | NUR ---
PATIENT PROVIDED WITH EVENING MEDICATIONS. SHE REPORTS AN ONGOING COUGH THAT IS MAKING IT DIFFICULT TO REST. MD NOTIFIED FOR PRN THEESIN. PATIENT'S LUNGS ARE CLEAR IN THE UPPER LOBES, FINE CRACKLES IN THE BASES THAT DO NOT CLEAR WITH COUGH. PATIENT DENIES ANY GI UPSET. 2+ EDEMA NOTED IN [place] LOWER EXTREMITITES. ELEAVTED ON PILLOWS. PATIENT BLOOD SUGAR 335, 10 UNITS INSULIN PROVIDED PER SLIDING SCALE. PATIENT REQUEST TO HAVE LIGHTS TURNED OUT, WHICH WAS DONE. CALL LIGHT IN REACH. WARM BLANKET PROVIDED.
--- NOTE | 2018-07-30 21:52 | NUR ---
VITALS AND I&OS DONE AND CHARTED. FRESH ICE WATER GIVEN. BEDSIDE TABLE AND CALL LIGHT IN REACH. PT NEEDS NOTHING AT THIS TIME.
--- NOTE | 2018-07-30 23:00 | NUR ---
PATIENT APPEARS TO BE SLEEPING SOUNDLY. RR 18. CALL LIGHT IN REACH.
--- NOTE | 2018-07-31 00:15 | NUR ---
PATIENT UP TO THE BATHROOM. REPORTS ONGOING ISSUE WITH HER COUGH AND STATES THE ROBITUSSIN DID NOT HELP. OFFERED WARM DRINKS TO SOOTHE. PATIENT DECLINED. WARM BLANKET PROVIDED. CALL LIGHT IN REACH.
--- NOTE | 2018-07-31 02:10 | NUR ---
PATIENT APPEARS TO BE SLEEPING. HOB ELEAVTED. PATIENT APPEARS COMFORTABLE. RR 19.
--- NOTE | 2018-07-31 03:15 | NUR ---
PATIENT UP TO THE BATHROOM. REPORTS PAIN 5/10 IN HER LEFT SIDE. PRN TYLENOL AND WARM PACK PROVIDED PER REQUEST. PATIENT VERBALIZED CONCERN ABOUT HER PENDING APPOINTMENT WITH ON WEDNESDAY. REPORTED THIS TO DEBT COLLECTOR.
--- NOTE | 2018-07-31 04:00 | NUR ---
PATIENT APPEARS TO BE SLEEPING. HOB ELEVATED. RR 20. CALL LIGHT IN REACH.
--- NOTE | 2018-07-31 05:46 | NUR ---
PATIENT SLEPT OFF AND ON THIS SHIFT. BGC 335 AT HS, 10 UNITS OF INSULIN PER SS. URINE OUTPUT QS. TELE [address], HR IN THE 70'S. PATIENT SBA OR INDEPENDENT IN ROOM. PATIENT HAD SOME LEFT SIDED PAIN THIS MORNING. WARM PACK AND PRN TYLENOL PROVIDED SOME RELIEF. ADA DIET.
--- NOTE | 2018-07-31 06:42 | NUR ---
MORNING VS COMPLETE. PATIENT ATTEMPTING TO SLEEP. DENIES ANY NEEDS. CALL LIGHT IN REACH.
--- NOTE | 2018-07-31 07:29 | NUR ---
PT REPORTS FEELING NASUEA AT THIS TIME. SHE IS ALERT, SHE HAS COMPLAINT OF COUGH THAT DID NOT ALLOW HER TO SLEEP WELL LAST NIGHT
--- NOTE | 2018-07-31 07:30 | NUR ---
CALLED FOR NAUSEA MEDICATIONS, PT REPORTED FEELING NASUEA, AND PT ALSO COMPLAINT OF COUGH AND DOES NOT WANT ROBITUSSIN IT DID NOT WORK. KIM FRANCO ORDERED.
--- NOTE | 2018-07-31 08:09 | NUR ---
PT RESTING IN BED EYES CLOSED RR EVEN 16 BPM, NO DISTRESS NOTED. PT APPEARS TO BE SLEEPING, WILL NOT WAKE AT THIS TIME. AM MED PASS AND ASSESSMENT WILL HOLD UNITL 0900
--- NOTE | 2018-07-31 08:40 | NUR ---
IN TO CHECK PT TELEMETRY LEADS, PT AWAKE, SHE REPORTS SHE IS STILL NOT FEELING WELL, BUT DOES NOT WANT ANY MEDS AT THIS TIME, SHE JUST WANTS TO SLEEP AWHILE LONGER.
--- NOTE | 2018-07-31 11:49 | NUR ---
PT UP TO BATHROOM, SHE REPORTS SHE IS FEELING BETTER, NAUSEA IS BETTER. SHE WOULD LIKE SOME YOGURT FOR LUNCH.
--- NOTE | 2018-07-31 12:05 | NUR ---
PATIENTS GLUCOSE WAS DONE AND REPORTED TO NURSE
--- NOTE | 2018-07-31 13:50 | NUR ---
PT NOW COUGHING UP SPUTUMS, SECRETION. CPT ORDERED. KB NOTIFIED
--- NOTE | 2018-07-31 15:30 | NUR ---
PT SAID SHE WOULD TAKE A SHOWER AFTER DINNER.
--- NOTE | 2018-07-31 16:53 | NUR ---
PT UP INDEPENDENTLY IN ROOM. PRODUCTIVE COUGH NOW, HAS CPT ORDERED. EATS SMALL SNACKS THROUGHOUT THE DAY. NO INSULIN NEEDED FORM SLIDING SCALE FOR BREAKFAST OR LUNCH NEEDS 2UNITS FOR 143 WITH DINNER. PT HAS HAD COMPALINT OF COUGH AND DIZZINESS WITH NAUSEA TODAY MD AWARE, DIZZINESS WITH GETTING UP IS NOT NEW. ZOFRAN EFFECTIVE FOR NAUSEA. PT REMAINS ON ISOLAION FOR CHEMO EXPOSURE. PT IS VOIDING CLEAR YELLOW URINE QUANTITY SUFFICIENT.
--- NOTE | 2018-07-31 19:10 | NUR ---
SHIFT REPORTS RECEIVED. PATIENT RESTING IN BED WATCHING TV. REPORTS ONGOING COUGH THAT IS MAKING PAIN DIFFICULT TO REST. WILL REPORT TO MD. PATIENT DENIES ANY NEEDS.
--- NOTE | 2018-07-31 21:36 | NUR ---
ROUNDED CHARGE. PATIENT IS RESTING IN BED. PATIENT DENIES ANY COMMENTS, QUESTIONS, OR CONCERNS. NO NEEDS NOTED. 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 CALL LIGHT IN REACH.
--- NOTE | 2018-07-31 21:45 | NUR ---
EVENING MEDS PROVIDED PER ORDER. PATIENT REPORTS ONGOING COUGH THAT HAS KEPT HER FROM RESTING. PRN MEDS FOR COUGH AND PAIN PROVIDED. PATIENT'S LUNGS ARE CLEAR WITH FINE CRACKLES IN THE BASES BILATERALLY. TOLERATING ROOM AIR. PATIENT DENIES PAIN EXCEPT HER THROAT. EDEMA NOTED IN [place] LOWER EXTREMITIES, UNCHANGED FROM PREVIOUS SHIFT. ENCOURAGED PATIENT TO ELEVATE WHILE IN BED. NO OTHER NEEDS AT THIS TIME. CALL LIGHT IN REACH.
--- NOTE | 2018-07-31 22:03 | NUR ---
VITALS, I&OS AND BLOOD SUGAR DONE AND CHARTED. FRESH ICE WATER GIVEN. BEDSIDE TABLE AND CALL LIGHT IN REACH.
--- NOTE | 2018-07-31 23:00 | NUR ---
PATIENT APPEARS TO BE SLEEPING. HOB ELEAVTED. RR 20. CALL LIGHT IN REACH.
--- NOTE | 2018-08-01 01:13 | NUR ---
PATIENT APPEARS TO BE SLEEPING. RR 19. CALL LIGHT IN REACH.
--- NOTE | 2018-08-01 03:26 | NUR ---
PATIENT RESTING IN BED. HOB ELEVATED. APPEARS TO BE SLEEPING SOUNDLY. RR 18.
--- NOTE | 2018-08-01 05:15 | NUR ---
PATIENT APPEARS TO BE SLEEPING SOUNDLY. RR 20. ALLOWED TO REST. CALL LIGHT IN REACH.
--- NOTE | 2018-08-01 06:00 | NUR ---
PATIENT UP TO THE BATHROOM. SUPPLIES SET UP FOR SHOWER. PATIENT STATES SHE FEELS ABLE TO SHOWER INDEPENDENTLY. STABLE ON HER FEEL. ENCOURAGED PATIENT TO CALL FOR ANY CONCERNS.
--- NOTE | 2018-08-01 06:24 | NUR ---
PATIENT APPEARED TO SLEEP MOST OF THE TIME BETWEEN 2200 AND 0600. PRN MEDS FOR COUGH WERE EFFECTIVE. PATIENT CONTINUES TO HAVE FINE CRACKLES IN [place] LUNG BASES. TOLERATES ROOM AIR. VS STABLE. NO PAIN THIS MORNING. PATIENT PLANNED FOR DISCHARGE. UP FOR SHOWER EARLY THIS MORNING. ADA DIET. ACCU CHECKS WITH SSI.
--- NOTE | 2018-08-01 06:46 | NUR ---
HELPED PT GET INTO AND OUT OF THE SHOWER. HELPED HER GET DRESSED AND ALSO WITH HER HAIR. CLEANED UP THE BATHROOM FLOOR WITH TOWELS AND PUT DIRTY LAUNDRY IN THE HAMPER. CHANGED ALL LINENS ON HER BED. BEDSIDE TABLE AND CALL LIGHT IN REACH.
--- NOTE | 2018-08-01 07:24 | NUR ---
BEDSIDE REPORT.. PT UP MOVING ABOUT THE ROOM PACKING BELONGINGS FOR PLANNED D/C THIS AM. SHE HAS SHOWERED THIS AM HAS HAIR UP IN TOWEL.
--- NOTE | 2018-08-01 08:35 | NUR ---
PATIENT UP IN CHAIR. CALL LIGHT IN REACH. NO FURTHER NEEDS AT THIS TIME.
--- NOTE | 2018-08-01 08:46 | NUR ---
PT SITTING UP AT SIDE OF BED TO EAT BREAKFAST. WILL HOLD ALL AM INSULIN UNTIL TALK WITH MD PT POC BS WAS 83 THIS AM
[2018-08-01] MEDS ORDERED: BENZONATATE100 MG PO (09:18)
[2018-08-01] MEDS ORDERED: SODIUM BICARBO650 MG PO (09:21)
[2018-08-01] MEDS ORDERED: ANTACID ULTRA1177 MG PO (09:21)
[2018-08-01] MEDS ORDERED: CHERATUSSIN AC118 ML PO (09:23)
--- NOTE | 2018-08-01 10:00 | NUR ---
PT DISCHARGE PACKET WITH EDUCATIONS ON FOLLOW UP APPOINTMENT, UTI AND DKA, DIET AND MEDICATIONS LAST DOSE NEXT DOSE AND SIDE EFFECTS. PT AMBUATING SBA IN ROOM. I.V SITE REMOVED WNL TIP INTACT X2, I.V. HAVE BEEN IN FOR THREE DAYS AND NOT APPROPRIATE TO BE USED IN CANCER CLINIC TODAY. PT ALERT AND ORINTED. RX PRINTED AND GIVEN TO PT.
--- NOTE | 2018-08-01 11:26 | NUR ---
PT SITTING ON SIDE OF BED, DRESSED AND WAITING DC. PT MENTIONED THE WEEKEND HAD BEEN TOUGH, BUT SHE IS THANKFUL SHE CAME TO THE HOSPITAL WHEN SHE DID. PT THANKED ME FOR COMING BY, WILL FOLLOW NEEDED
== END 2018-08-01 10:10 | disposition home or self-care (01) ==
LOC: ED 19:33 → CCU 19:34 → MS 07-30 17:37
PROVIDERS: ADMIT Student in an Organized Health Care Education/Training Program
DX: E11.10 Type 2 diabetes mellitus with ketoacidosis without coma (principal); I10 Essential (primary) hypertension; E87.5 Hyperkalemia; E83.51 Hypocalcemia; E78.5 Hyperlipidemia, unspecified; N18.9 Chronic kidney disease, unspecified; C90.00 Multiple myeloma not having achieved remission; D63.0 Anemia in neoplastic disease; N28.9 Disorder of kidney and ureter, unspecified; Z88.8 Allergy status to other drugs, medicaments and biological substances; Z79.4 Long term (current) use of insulin; Z79.899 Other long term (current) drug therapy
CPT/HCPCS: 36415; 36430; 51798; 71046; 80048; 80053; 81001; 82010; 82310; 82570; 82728; 82800; 83735; 83880; 84100; 84156; 84550; 85025; 85610; 85730; 86850; 86900; 86901; 86920; 93970; 94667; 94668; 96361; 96365; 96366; 96367; 96372; 96374; 96375; 99284-25; G0378; J0696; J1650; J1815; J1940; J2405; J3475; J7030; J7070; P9016